=== PATIENT | male | born 1955 | race Caucasian/White ===

== ENCOUNTER 2016-06-21 15:47 | Emergency (ER) | payer OTHER ==
[~2016-06-21] VITALS: Ht 175.3 cm; Wt 128.0 kg
[~2016-06-21 15:47] MED LIST: CIPR1TAB10 PO; ENOX1INJ13 SQ; ERGO1CAP35 PO; FERR1TAB23 PO; IPRA1AER2 INH; LPR25 PO; LSN40 PO; LSX80 PO; NVLGIPEN SC; NYSP EXT; OMEP40CA41 PO; OXYC-643 PO; SIMV-151 PO
[2016-06-21 15:53] VITALS: TEMP 36.7; Ht 175.3 cm; Wt 128.0 kg
[2016-06-21] MEDS ORDERED: SODIUM CHLORIDE 0.9% 500ML 500 ML IV STA (16:02)
[2016-06-21] MEDS ORDERED: SODIUM CHLORIDE 0.9% 1000ML 1,000 ML IV STA (16:02)
[2016-06-21] MEDS ORDERED: LIDOCAINE HCL 2% JELLY 30 ML TUBE EXT ONE (16:20)
--- NOTE | 2016-06-21 16:33 | EMERGENCY ROOM VISIT NOTE ---
History Report prepared by Tyra: Radha Roberson Under the Supervision of: Dr. Jory Ceja M.D. First contact with patient: 16:01 Chief Complaint: URINARY SYMPTOMS Stated Complaint: CATH CHANGED,UTI SYMPTOMS History of Present Illness The patient is a 61 year old male who presents to the Emergency Room with complaints of persistent urinary symptoms since yesterday. He also complains of a fever. The patient states that he thinks he has a UTI. He has a chronic urinary catheter due to incontinence and it has been clogged since yesterday. He states that his PCP is under the impression that he may have a pinched nerve secondary to spinal stenosis, which could be causing his incontinence. Currently , the patient does not feel like he has much, if any, urine in his bladder. Source of History: patient Onset: yesterday Position: other () Quality: other (possible UTI) Timing: other (persistent) Associated Symptoms: + fevers Review of Systems See HPI for pertinent positives & negatives. A total of 10 systems reviewed and were otherwise negative. Past Medical & Surgical Medical Problems: (1) Diabetes mellitus (2) Dyspnea (3) Gastroesophageal reflux disease (4) Gout (5) Parkinson's disease (6) Pulmonary embolism (7) Syncope (8) Weakness Family History Cancer Diabetes mellitus FH: heart disease Hypertension Social History Smoking Status: Never Smoker Alcohol Use: none Drug Use: none Marital Status: single Housing Status: lives alone Occupation Status: retired Current/Historical Medications Scheduled Allopurinol (Allopurinol), 100 MG PO DAILY Amantadine HCl (Amantadine HCl), 100 MG PO BID Ascorbic Acid (Vitamin C), 3 TABS QAM Carbidopa/Levodopa (Sinemet Cr 50MG/200MG), 1 TAB PO BID Ciprofloxacin Hcl (Cipro), 500 MG PO PRN UD Ciprofloxacin Hcl (Cipro), 500 MG PO BID Enoxaparin Sodium (Lovenox), 120 MG SQ Q12 Ferrous Sulfate (Iron), 1 TAB PO DAILY Furosemide (Furosemide), 80 MG PO BID Insulin Aspart (Novolog Flexpen), 10 UNITS SC AC Insulin Glargine (Lantus), 45 UNITS SC BID Lisinopril (Lisinopril), 40 MG PO BID Metoprolol Tartrate (Lopressor), 25 MG PO BID Nystatin (Nystop), 1 APPLN EXT TID Omeprazole (Prilosec), 40 MG PO DAILY Oxycodone/Acetaminophen 5MG/325MG (Oxycodone/Acetaminophen 5MG/325MG), 1-2 TABS PO Q4 Pregabalin (Lyrica), 300 MG PO BID Simvastatin (Simvastatin), 20 MG PO DAILY Scheduled PRN Ipratropium-Albuterol (Combivent Respimat), 1 PUFFS INH QID PRN for cough, wheeze, sob Allergies Coded Allergies: Penicillins (Verified Allergy, Severe, 06/21/16) SEVERE RXN PER PT Cephalosporins (Verified Allergy, Unknown, 06/21/16) Sulfamethoxazole w/Trimethoprim (Verified Allergy, Unknown, ., 06/21/16) TAKES LASIX AT HOME Physical Exam Vital Signs Date Time Temp Pulse Resp B/P Pulse Ox O2 Delivery O2 Flow Rate FiO2 06/21/16 19:45 94 20 187/98 95 Room Air 06/21/16 18:54 100 20 169/109 97 Room Air 06/21/16 18:04 107 18 180/104 96 Room Air 06/21/16 17:27 105 18 178/103 96 Room Air 06/21/16 16:59 110 20 202/116 95 06/21/16 16:31 114 06/21/16 15:53 36.7 124 16 171/106 97 Physical Exam Vital signs reviewed. General: Malodorous, obese, 61 year old male, in no significant distress. Noted to be tachycardic and hypertensive. HEENT: No scleral icterus, PERRLA, neck supple. Atraumatic. Cardiovascular: Regular rate and rhythm, no extra sounds. Pulmonary: Clear to auscultation bilaterally, normal work of breathing. Abdomen: Soft, nontender, nondistended, positive bowel sounds. : Excoriated and erythematous genitals with a circumcised penis. Musculoskeletal: Atraumatic, no peripheral edema. Neurologic: Patient awake alert and oriented x 3 Skin: Warm, dry, no rash Medical Decision & Procedures Laboratory Results 06/21/16 16:35 Red Blood Count 5.04, Mean Corpuscular Volume 86.3, Mean Corpuscular Hemoglobin 28.6, Mean Corpuscular Hemoglobin Concent 33.1, Mean Platelet Volume 9.2, Neutrophils (%) (Auto) 71.5, Lymphocytes (%) (Auto) 20.6, Monocytes (%) (Auto) 5.4, Eosinophils (%) (Auto) 2.1, Basophils (%) (Auto) 0.2, Neutrophils # (Auto) 6.72, Lymphocytes # (Auto) 1.94, Monocytes # (Auto) 0.51, Eosinophils # (Auto) 0.20, Basophils # (Auto) 0.02 06/21/16 16:35 Test 06/21/16 16:35 06/21/16 16:45 06/21/16 16:49 White Blood Count 9.41 K/uL (4.8-10.8) Red Blood Count 5.04 M/uL (4.7-6.1) Hemoglobin 14.4 g/dL (14.0-18.0) Hematocrit 43.5 % (42-52) Mean Corpuscular Volume 86.3 fL (80-100) Mean Corpuscular Hemoglobin 28.6 pg (25-34) Mean Corpuscular Hemoglobin Concent 33.1 g/dl (32-36) Platelet Count 179 K/uL (130-400) Mean Platelet Volume 9.2 fL (7.4-10.4) Neutrophils (%) (Auto) 71.5 % Lymphocytes (%) (Auto) 20.6 % Monocytes (%) (Auto) 5.4 % Eosinophils (%) (Auto) 2.1 % Basophils (%) (Auto) 0.2 % Neutrophils # (Auto) 6.72 K/uL (1.4-6.5) Lymphocytes # (Auto) 1.94 K/uL (1.2-3.4) Monocytes # (Auto) 0.51 K/uL (0.11-0.59) Eosinophils # (Auto) 0.20 K/uL (0-0.5) Basophils # (Auto) 0.02 K/uL (0-0.2) RDW Standard Deviation 42.5 fL (36.4-46.3) RDW Coefficient of Variation 13.4 % (11.5-14.5) Immature Granulocyte % (Auto) 0.2 % Immature Granulocyte # (Auto) 0.02 K/uL (0.00-0.02) Anion Gap 9.0 mmol/L (3-11) Est Creatinine Clear Calc Drug Dose 84.5 ml/min Estimated GFR () 74.7 Estimated GFR (Non- 64.4 BUN/Creatinine Ratio 16.4 (10-20) Calcium Level 9.5 mg/dl (8.5-10.1) Magnesium Level 2.3 mg/dl (1.8-2.4) Total Bilirubin 0.4 mg/dl (0.2-1) Direct Bilirubin 0.1 mg/dl (0-0.2) Aspartate Amino Transf (AST/SGOT) 10 U/L (15-37) Alanine Aminotransferase (ALT/SGPT) 29 U/L (12-78) Alkaline Phosphatase 121 U/L (45-117) Total Protein 8.0 gm/dl (6.4-8.2) Albumin 3.7 gm/dl (3.4-5.0) Lipase 132 U/L (73-393) Urine Color DK YELLOW Urine Appearance TURBID (CLEAR) Urine pH 8.0 (4.5-7.5) Urine Specific [place] 1.020 (1.000-1.030) Urine Protein 2+ (NEG) Urine Glucose (UA) TRACE (NEG) Urine Ketones NEG (NEG) Urine Occult Blood 3+ (NEG) Urine Nitrite POS (NEG) Urine Bilirubin NEG (NEG) Urine Urobilinogen NEG (NEG) Urine Leukocyte Esterase LARGE (NEG) Urine WBC (Auto) >30 /hpf (0-5) Urine RBC (Auto) >30 /hpf (0-4) Urine Hyaline Casts (Auto) 5-10 /lpf (0-5) Urine Epithelial Cells (Auto) >30 /lpf (0-5) Urine Bacteria (Auto) 4+ (NEG) Urine Pathogenic Casts /lpf (0) Bedside Lactic Acid Venous 1.26 mmol/L (0.90-1.70) Laboratory results per my review. Medications Administered Medications (Trade) Dose Ordered Sig/Apryl Route Start Time Stop Time Status Last Admin Dose Admin Sodium Chloride 500 ml @ 999 mls/hr Q31M STAT IV 06/21/16 16:02 06/21/16 16:32 DC 06/21/16 16:02 999 MLS/HR Sodium Chloride (Nss 1000ml) 1,000 ml @ 125 mls/hr Q8H STAT IV 06/21/16 16:02 06/21/16 21:27 DC 06/21/16 16:02 125 MLS/HR Lidocaine HCl (Xylocaine Jelly 2%) 30 ml STK-MED ONCE EXT 06/21/16 16:20 06/21/16 16:22 DC 06/21/16 16:20 30 ML Morphine Sulfate (MoRPHine SULFATE INJ) 6 mg NOW STAT IV 06/21/16 16:58 06/21/16 17:00 DC 06/21/16 17:06 6 MG Ondansetron HCl (Zofran Inj) 4 mg NOW STAT IV 06/21/16 16:58 06/21/16 17:00 DC 06/21/16 17:06 4 MG Ciprofloxacin (Cipro Tab) 500 mg NOW STAT PO 06/21/16 17:24 06/21/16 17:25 DC 06/21/16 18:01 500 MG Metoprolol Tartrate (Lopressor Tab) 50 mg NOW STAT PO 06/21/16 17:43 06/21/16 17:45 DC 06/21/16 18:01 50 MG Nystatin (Mycostatin Powder) 1 appln NOW STAT EXT 06/21/16 19:02 06/21/16 19:03 DC 06/21/16 19:02 1 APPLN ED Course 1602: Ordered NSS 1000 ml @ 125 mls/hr IV, NSS 500 ml @ 999 mls/hr IV. 1621: Past medical records reviewed. The patient was evaluated in room B9. A complete history and physical examination was performed. 1658: Ordered Zofran Inj 4 mg IV, Morphine Sulfate 6 mg IV 1724: Ordered Cipro Tab 500 mg PO. 1740: I reassessed the patient. He was feeling better. Ordered Metoprolol Tartrate 50 mg PO. 190: Ordered Nystatin 1 appln EXT. 1935: Upon reevaluation, the patient appeared to have improvement of his symptoms. I discussed findings with the patient. He verbalized agreement of the treatment plan. The patient was discharged home. Medical Decision Differential diagnosis: UTI, bladder mass, Wills catheter dysfunction, hematuria. This patient was evaluated and appeared to be in no significant distress. IV access was obtained and laboratory work was drawn. He was placed on the tunnel worker and found to be in a sinus tachycardia. He is noted to be hypertensive. Patient was hydrated with normal saline solution, laboratory work reveals no significant abnormalities. Patient's urinalysis is greatly concerning for infection. The Wills catheter was changed and the bladder was irrigated. The patient tolerated this procedure well. He was given Cipro 500 mg orally and placed on seven-day course of Cipro. Urine cultures are pending. Patient was given metoprolol 50 mg orally as he does take metoprolol twice daily. Patient's vital signs have normalized. He was advised to follow-up with his primary care physician this week and return to the ER for worsening of symptoms or any medical concerns. Impression Primary Impression: Urinary tract infection Additional Impression: Complication, blocked Wills catheter Scribe Attestation The scribe's documentation has been prepared under my direction and personally reviewed by me in its entirety. I confirm that the note above accurately reflects all work, treatment, procedures, and medical decision making performed by me. Departure Information Dispostion Home / Self-Care Prescriptions Ciprofloxacin Hcl (CIPRO) 500 Mg Tab 500 MG PO BID, #14 TAB Prov: Jory Ceja M.D. 06/21/16 Referrals Reza Ocasio Jr,D.O. (PCP) Patient Instructions A Signature Page, My [facility] Additional Instructions Diagnosis: Complication of Wills catheter, UTI Cipro 500 mg twice daily for 7 days. Your Wills catheter was changed today. Drink plenty of clear fluids to keep the catheter irrigated. Continue your blood pressure medications as prescribed. Follow-up with your primary care provider this week for reevaluation, blood pressure recheck and evaluation of the Wills catheter. Return to the ER for worsening of symptoms or any medical concerns.
[2016-06-21 16:45] LABS: BASO % 0.2 %; BASO ABS # 0.02 K/uL (0-0.2); COMPLETE YES; EOS % 2.1 %; HEMATOCRIT 43.5 % (42-52); IG% 0.2 %; LYMPH % 20.6 %; LYMPH ABS # 1.94 K/uL (1.2-3.4); MEAN CELL VOLUME 86.3 fL (80-100); MEAN CORPUSCULAR HEMOGLOBIN 28.6 pg (25-34); MEAN CORPUSCULAR HGB CONC 33.1 g/dl (32-36); MEAN PLATELET VOLUME 9.2 fL (7.4-10.4); MONO % 5.4 %; NEUT % 71.5 %; PLATELET COUNT 179 K/uL (130-400); RED BLOOD COUNT 5.04 M/uL (4.7-6.1); WHITE BLOOD COUNT 9.41 K/uL (4.8-10.8)
[2016-06-21] MEDS ORDERED: ONDANSETRON INJ 2 MG/ML 2 ML VIAL IV STA (16:58)
[2016-06-21] MEDS ORDERED: MoRPHine SULFATE 10 MG/ML CARP/VIAL IV STA (16:58)
[2016-06-21 17:05] LABS: BUN/CREATININE RATIO 16.4 (10-20); CALCIUM 9.5 mg/dl (8.5-10.1); CREATININE 1.2 mg/dl (0.60-1.40); MAGNESIUM 2.3 mg/dl (1.8-2.4); POTASSIUM 4.4 mmol/L (3.5-5.1)
[2016-06-21] MEDS ORDERED: CIPROFLOXACIN 500 MG TAB PO STA (17:24)
[2016-06-21 17:27] LABS: URINE APPEARANCE TURBID (CLEAR); URINE BILIRUBIN NEG (NEG); URINE COLOR DK YELLOW; URINE EPITHELIAL CELL AUTO >30 /lpf (0-5); URINE NITRITE POS (NEG); UROBILINOGEN NEG (NEG); ZZURINE CULT IF INDIC CATH YES
[2016-06-21 17:31] LABS: MANUAL MICROSCOPIC REQUIRED? NO; REVIEW REQ? YES
[2016-06-21 17:37] LABS: SULFASALICYLIC ACID POS (NEG)
[2016-06-21] MEDS ORDERED: METOPROLOL TARTRATE 50 MG TAB PO STA (17:43)
[2016-06-21] MEDS ORDERED: NYSTATIN POWDER 15GM BTL EXT STA (19:02)
[2016-06-21] MEDS ORDERED: CIPR-255 PO (19:20)
[2016-06-21 19:45] VITALS: BP 187/98; PULSE 94; O2SAT 95
--- NOTE | 2016-06-23 14:52 | Pharmacy Progress Note ---
ED Pharmacist Culture FollowUp Date of Service: Jun 23, 2016. Patient's urine cx from 06/21/16 finalized today. The urine cx is growing providencia rettgeri resistant to ciprofloxacin. He had been dx with complicated catheter associated UTI during ED visit and was discharged on ciprofloxacin x 7 days. Allergy hx includes penicillins ("severe rxn" per pt report), cephs (rxn unknown), smx-tmp (rxn unknown). If all 3 allergies are significant our treatment choices are limited to parenteral therapy ( aminoglycoside or ertapenem). I did review past admissions to determine if he has tolerated cephs or Bactrim...unfortunately he has not received these abx classes on prior admissions. I then attempted to contact the patient at home to obtain more info about his allergies. I left a message on his voice mail ) asking that he call me back.
[2016-08-12] MEDS ORDERED: ERTA1INJ IV (10:39)
[2016-08-15] MEDS ORDERED: LVNIS150 SQ (14:24)
[2016-08-15] MEDS ORDERED: OXYC-643 PO (16:24)
[2016-10-06] MEDS ORDERED: DXY100 PO (13:15)
[2016-11-14] MEDS ORDERED: ASPEC81 PO (10:42)
[2016-11-14] MEDS ORDERED: IMDSR30 PO (10:42)
[2016-11-14] MEDS ORDERED: LVNIS150 SQ (10:42)
[2016-11-14] MEDS ORDERED: LPR25 PO (10:42)
[2016-11-14] MEDS ORDERED: CARV3.122 PO (11:15)
[2016-11-14] MEDS ORDERED: NITR-5 PO (11:15)
[2017-01-02] MEDS ORDERED: FURO40TA3 PO (11:45)
[2017-01-02] MEDS ORDERED: INSDGI SC (19:52)
[2017-01-23] MEDS ORDERED: SYM100 PO (12:38)
[2017-01-23] MEDS ORDERED: ALL100 PO (12:38)
[2017-01-23] MEDS ORDERED: PREG300C PO (12:38)
[2017-01-23] MEDS ORDERED: CARB50TA3 PO (12:44)
[2017-01-23] MEDS ORDERED: SIMV20TA2 PO (17:27)
[2017-03-12] MEDS ORDERED: LVNIS150 SC (10:50)
[2017-03-12] MEDS ORDERED: PRT40 PO (10:50)
[2017-03-12] MEDS ORDERED: FURO80TA63 PO (10:50)
[2017-03-12] MEDS ORDERED: VERA1TAB52 PO (10:50)
[2017-03-12] MEDS ORDERED: INSDGI SC (10:50)
[2017-03-12] MEDS ORDERED: ZNT150 PO (10:50)
[2017-03-12] MEDS ORDERED: SPIR25TA PO (10:50)
== END 2016-06-21 19:48 | disposition home or self-care (01) ==
LOC: C.EDB 15:49
DX: T83.193A Other mechanical complication of other urinary stent, initial encounter (principal); X58.XXXA Exposure to other specified factors, initial encounter; N39.0 Urinary tract infection, site not specified; R00.0 Tachycardia, unspecified; E11.9 Type 2 diabetes mellitus without complications; K21.9 Gastro-esophageal reflux disease without esophagitis; G20 Parkinson's disease; M10.9 Gout, unspecified; Z86.711 Personal history of pulmonary embolism; Z79.4 Long term (current) use of insulin; Z79.899 Other long term (current) drug therapy; Z88.0 Allergy status to penicillin; Z88.2 Allergy status to sulfonamides; Z88.8 Allergy status to other drugs, medicaments and biological substances

== ENCOUNTER → 2016-07-03 | Outpatient (CLI) | payer OTHER ==
[~2016-07-03] MED LIST changes: +ALL100 PO; +AMLO-114 PO; +ASCO500T3 PO; +ASPEC81 PO; +CARB50TA3 PO; +CARV3.12 PO; +CARV3.122 PO; +CIPR-255 PO; +CLC6 PO; +COLC0.6T54 PO; +CRG3125 PO; +DOCU-94 PO; +DTRSR/2 PO; +DUTA0.5C PO; +DUTA1CAP25 PO; +DXY100 PO; +ENOX1INJ14 SC; -ERGO1CAP35 PO; +ERTA1INJ IV; +FLM4 PO; +FLUO40CA8 PO; +FURO40TA3 PO; +FURO80TA63 PO; +IMDSR30 PO; +INSDGI SC; +ISOS-11 PO; +LEVO1TAB35 PO; +LOSA50TA6 PO; +LVNIS120 SC; +LVNIS150 SC; +LVNIS150 SQ; +METO25TA56 PO; +MIRA1TAB3 PO; +NITR-5 PO; +NVLGI/PEN SQ; +OXYC-57 PO; +PREG1CAP34 PO; +PREG300C PO; +PRLSR20 PO; +PRT40 PO; +SENN1TAB77 PO; +SIMV20TA2 PO; +SINCALIDE IV SCH; +SODIUM CHLORIDE 0.9% IV SCH; +SPIR25TA PO; +SPIR25TA89 PO; +SYM100 PO; +TAMS0.4C38 PO; +VERA1TAB52 PO; +ZNT150 PO; +ZOLP10TA PO; +ZOLP10TA6 PO
--- NOTE | 2016-07-03 15:25 | DIAGNOSTIC IMAGING REPORT ---
NUCLEAR MEDICINE HEPATOBILIARY SCAN WITH EJECTION FRACTION ANALYSIS CLINICAL HISTORY: Right-sided abdominal pain COMPARISON STUDY: CT scan dated 05/14/2016 FINDINGS: The patient was injected with 4 x 1 mCi of technetium 99m Choletec. Sequential anterior imaging was performed. The gallbladder was first visualized at 10 minute image. There is normal passage of activity into small bowel. At 1 hour, the patient was administered 2.45 mcg of sincalide utilizing a 30 minute intravenous infusion. The gallbladder ejection fraction was normal measuring 79%. IMPRESSION: Normal study. No evidence of cystic duct obstruction. Normal gallbladder ejection fraction of 79% Electronically signed by: Abe Tejeda M.D. 07/03/2016 3:24 PM Dictated Date/Time: 07/03/2016 3:22 PM
== END | disposition home or self-care (01) ==
LOC: C.NUCL 12:48
DX: R10.9 Unspecified abdominal pain (principal)

== ENCOUNTER 2016-08-07 19:55 | Inpatient (IN) | payer OTHER ==
[~2016-08-07] VITALS: Ht 177.8 cm; Wt 122.2 kg
[~2016-08-07 19:55] MED LIST changes: -ALL100 PO; -AMLO-114 PO; -ASCO500T3 PO; -ASPEC81 PO; -CARB50TA3 PO; -CARV3.12 PO; -CARV3.122 PO; -CLC6 PO; -COLC0.6T54 PO; -CRG3125 PO; -DOCU-94 PO; -DTRSR/2 PO; -DUTA0.5C PO; -DUTA1CAP25 PO; -DXY100 PO; -ENOX1INJ14 SC; -ERTA1INJ IV; -FLM4 PO; -FLUO40CA8 PO; -FURO40TA3 PO; -FURO80TA63 PO; -IMDSR30 PO; -INSDGI SC; -ISOS-11 PO; -LEVO1TAB35 PO; -LOSA50TA6 PO; -LVNIS120 SC; -LVNIS150 SC; -LVNIS150 SQ; -METO25TA56 PO; -MIRA1TAB3 PO; -NITR-5 PO; -NVLGI/PEN SQ; -OXYC-57 PO; -PREG1CAP34 PO; -PREG300C PO; -PRLSR20 PO; -PRT40 PO; -SENN1TAB77 PO; -SIMV20TA2 PO; -SINCALIDE IV SCH; -SODIUM CHLORIDE 0.9% IV SCH; -SPIR25TA PO; -SPIR25TA89 PO; -SYM100 PO; -TAMS0.4C38 PO; -VERA1TAB52 PO; -ZNT150 PO; -ZOLP10TA PO; -ZOLP10TA6 PO
[2016-08-07] MEDS ORDERED: SODIUM CHLORIDE 0.9% 1000ML 1,000 ML IV STA (21:50)
[2016-08-07] MEDS ORDERED: ONDANSETRON INJ 2 MG/ML 2 ML VIAL IV STA (21:50)
[2016-08-07] MEDS ORDERED: SODIUM CHLORIDE 0.9% 1000ML 250 ML IV STA (21:50)
--- NOTE | 2016-08-07 21:58 | EMERGENCY ROOM VISIT NOTE ---
History Report prepared by Tyra: Danny Hernández Under the Supervision of: Dr. Rodrigo Recio M.D. First contact with patient: 21:49 Chief Complaint: ABDOMINAL PAIN Stated Complaint: PAIN IN LWR ABD Nursing Triage Summary: Pt reports abd pain, lower. "sometimes it's so severe it brings tears to my eyes". Associated nausea. denies v/d. pt has catheter in. Hx of UTIs. History of Present Illness The patient is a 61 year old male who presents to the Emergency Room with complaints of waxing and waning bilateral lower abdominal pain beginning about 1 month ago. He rates the pain a 10/10 in severity when the pain is present, and notes there is nothing that initiates the pain. He reports he occasionally feels nauseous, but denies any vomiting or diarrhea. His urologist, Dr. Case, notes he may have an oversized prostate. The patient has had a catheter in place for over 1 year, and the current catheter has been in place for about 2 weeks. He has not had any complications with using his catheter, though he notes he has had a few UTIs recently. He notes his last bowel movement was this morning and was normal. The patient has diabetes and reports his sugars have been around 120 to 130. He reports having a past appendectomy, and a hernia repair in the past. He notes that he receives blood thinner injections. The patient is not currently on antibiotics. Source of History: patient Onset: about 1 month ago Position: abdomen (bilateral lower) Symptom Intensity: 10/10 in severity Quality: other (abdominal pain) Timing: waxes/wanes Associated Symptoms: + nausea, No diarrhea, No vomiting Review of Systems See HPI for pertinent positives & negatives. A total of 10 systems reviewed and were otherwise negative. Past Medical & Surgical Medical Problems: (1) Catheter-associated urinary tract infection (2) Diabetes mellitus (3) Dyspnea (4) Gastroesophageal reflux disease (5) Gout (6) Parkinson's disease (7) Pulmonary embolism (8) Syncope (9) Weakness Family History Cancer Diabetes mellitus FH: heart disease Hypertension Social History Smoking Status: Never Smoker Alcohol Use: none Drug Use: none Marital Status: single Housing Status: lives alone Occupation Status: retired Current/Historical Medications Scheduled Allopurinol (Allopurinol), 100 MG PO DAILY Amantadine HCl (Amantadine HCl), 100 MG PO BID Ascorbic Acid (Vitamin C), 1 TABS PO QAM Carbidopa/Levodopa (Sinemet Cr 50MG/200MG), 1 TAB PO BID Enoxaparin (Lovenox), 150 MG SQ BID Ferrous Sulfate (Iron), 1 TAB PO DAILY Furosemide (Furosemide), 80 MG PO BID Insulin Aspart (Novolog Flexpen), 10 UNITS SC AC Insulin Glargine (Lantus), 45 UNITS SC BID Lisinopril (Lisinopril), 40 MG PO BID Metoprolol Tartrate (Lopressor), 25 MG PO BID Nystatin (Nystop), 1 APPLN EXT TID Omeprazole (Prilosec), 40 MG PO DAILY Oxycodone/Acetaminophen 5MG/325MG (Oxycodone/Acetaminophen 5MG/325MG), 1-2 TABS PO Q4 Pregabalin (Lyrica), 300 MG PO BID Simvastatin (Simvastatin), 20 MG PO DAILY Allergies Coded Allergies: Penicillins (Verified Allergy, Severe, 06/21/16) SEVERE RXN PER PT Cephalosporins (Verified Allergy, Unknown, 06/21/16) Sulfamethoxazole w/Trimethoprim (Verified Allergy, Unknown, ., 06/21/16) TAKES LASIX AT HOME Physical Exam Vital Signs Date Time Temp Pulse Resp B/P Pulse Ox O2 Delivery O2 Flow Rate FiO2 08/08/16 01:22 93 18 179/96 98 Room Air 08/07/16 23:22 99 18 163/105 97 Room Air 08/07/16 22:03 101 18 170/108 98 Room Air 08/07/16 20:06 37.2 128 18 191/145 96 Room Air Physical Exam GENERAL: Patient is in no acute distress. HEENT: No acute trauma, normocephalic atraumatic, mucous membranes moist, no nasal congestion, no scleral icterus. NECK: No stridor, no adenopathy, no meningismus, trachea is midline. LUNGS: Clear to auscultation bilaterally, no wheeze, no rhonchi, breath sounds equal. HEART: Tachycardic with regular rhythm, no murmurs. ABDOMEN: Soft; tenderness in lower abdomen bilaterally; bowel sounds positive, no hernias, no peritonitis. Wills catheter in place draining yellow urine. EXTREMITIES: Mild bilateral pedal edema without cellulitis; full range of motion of all the joints without pain or difficulty, no signs for acute trauma. NEUROLOGIC: Oriented x 3, no acute motor or sensory deficits, no focal weakness. SKIN: No rash, no jaundice, no diaphoresis. Medical Decision & Procedures ER Provider Diagnostic Interpretation: Radiology results are stated below per my review and radiologist interpretation: CT ABDOMEN & PELVIS: Colonic tics. No acute diverticulitis. No bowel obstruction or inflammatory changes. Wills catheter in the urinary bladder. Thickening and stranding around the urinary bladder may be worrisome for cystitis. Mild bilateral perinephric stranding may be senescent, correlate for infection. Small low-density lesion left kidney. Small nonobstructive left renal cyst. Scarring left inferior pole. No renal obstruction. Liver, gallbladder, pancreas, spleen unremarkable. Stent within the IVC and bilateral common iliac and left external iliac veins. Varicosities anterior abdominal wall subcutaneous soft tissue. Varices in the retroperitoneum. Left lung base atelectasis. Radiologist: Jeanna Kingston Laboratory Results 08/07/16 23:30 Red Blood Count 4.91, Mean Corpuscular Volume 84.5, Mean Corpuscular Hemoglobin 28.1, Mean Corpuscular Hemoglobin Concent 33.3, Mean Platelet Volume 9.2, Neutrophils (%) (Auto) 68.9, Lymphocytes (%) (Auto) 21.8, Monocytes (%) (Auto) 5.6, Eosinophils (%) (Auto) 3.1, Basophils (%) (Auto) 0.3, Neutrophils # (Auto) 5.37, Lymphocytes # (Auto) 1.70, Monocytes # (Auto) 0.44, Eosinophils # (Auto) 0.24, Basophils # (Auto) 0.02 08/07/16 23:30 Test 08/07/16 22:34 08/07/16 23:30 Urine Color JON Urine Appearance TURBID (CLEAR) Urine pH >= 9.0 (4.5-7.5) Urine Specific [place] <= 1.005 (1.000-1.030) Urine Protein 2+ (NEG) Urine Glucose (UA) TRACE (NEG) Urine Ketones TRACE (NEG) Urine Occult Blood TRACE (NEG) Urine Nitrite POS (NEG) Urine Bilirubin NEG (NEG) Urine Urobilinogen NEG (NEG) Urine Leukocyte Esterase LARGE (NEG) Urine RBC 0-4 /hpf (0-4) Urine WBC >30 /hpf (0-5) Urine Epithelial Cells 20-30 /lpf (0-5) Urine Triple Phosphate Crystals PRESENT (NONE PRSENT) Urine Bacteria 4+ (NEG) Urine Mucus PRESENT (NONE PRSENT) White Blood Count 7.79 K/uL (4.8-10.8) Red Blood Count 4.91 M/uL (4.7-6.1) Hemoglobin 13.8 g/dL (14.0-18.0) Hematocrit 41.5 % (42-52) Mean Corpuscular Volume 84.5 fL (80-100) Mean Corpuscular Hemoglobin 28.1 pg (25-34) Mean Corpuscular Hemoglobin Concent 33.3 g/dl (32-36) Platelet Count 190 K/uL (130-400) Mean Platelet Volume 9.2 fL (7.4-10.4) Neutrophils (%) (Auto) 68.9 % Lymphocytes (%) (Auto) 21.8 % Monocytes (%) (Auto) 5.6 % Eosinophils (%) (Auto) 3.1 % Basophils (%) (Auto) 0.3 % Neutrophils # (Auto) 5.37 K/uL (1.4-6.5) Lymphocytes # (Auto) 1.70 K/uL (1.2-3.4) Monocytes # (Auto) 0.44 K/uL (0.11-0.59) Eosinophils # (Auto) 0.24 K/uL (0-0.5) Basophils # (Auto) 0.02 K/uL (0-0.2) RDW Standard Deviation 39.8 fL (36.4-46.3) RDW Coefficient of Variation 13.0 % (11.5-14.5) Immature Granulocyte % (Auto) 0.3 % Immature Granulocyte # (Auto) 0.02 K/uL (0.00-0.02) Prothrombin Time 10.7 SECONDS (9.0-12.0) Prothromb Time International Ratio 1.0 (0.9-1.1) Activated Partial Thromboplast Time 30.1 SECONDS (21.0-31.0) Partial Thromboplastin Ratio 1.2 Anion Gap 8.0 mmol/L (3-11) Est Creatinine Clear Calc Drug Dose 85.3 ml/min Estimated GFR () 74.7 Estimated GFR (Non- 64.4 BUN/Creatinine Ratio 13.0 (10-20) Lactic Acid Level 1.0 mmol/L (0.4-2.0) Calcium Level 9.1 mg/dl (8.5-10.1) Total Bilirubin 0.3 mg/dl (0.2-1) Aspartate Amino Transf (AST/SGOT) 13 U/L (15-37) Alanine Aminotransferase (ALT/SGPT) 22 U/L (12-78) Alkaline Phosphatase 129 U/L (45-117) Total Protein 7.8 gm/dl (6.4-8.2) Albumin 3.3 gm/dl (3.4-5.0) Globulin 4.5 gm/dl (2.5-4.0) Albumin/Globulin Ratio 0.7 (0.9-2) Lipase 178 U/L (73-393) Laboratory results reviewed by me. Medications Administered Medications (Trade) Dose Ordered Sig/Apryl Route Start Time Stop Time Status Last Admin Dose Admin Sodium Chloride (Nss 1000ml) 250 ml @ 999 mls/hr Q16M STAT IV 08/07/16 21:50 08/07/16 22:05 DC 08/07/16 22:29 999 MLS/HR Ondansetron HCl 4 mg 4 mg NOW STAT IV 08/07/16 21:50 08/07/16 21:54 DC 08/07/16 22:29 4 MG Sodium Chloride (Nss 1000ml) 1,000 ml @ 200 mls/hr Q5H STAT IV 08/07/16 21:50 08/08/16 02:49 08/07/16 23:20 200 MLS/HR Morphine Sulfate (MoRPHine SULFATE INJ) 4 mg Q30M PRN IV 08/07/16 22:00 08/21/16 21:59 08/08/16 02:02 4 MG ECG Indication: abdominal pain Rate (beats per minute): 104 Rhythm: sinus tachycardia Findings: 1st degree AV block, no acute ischemic change, no ectopy ED Course 2148: The patient was evaluated in room C1B. A complete history and physical exam was performed. 2149: Ordered NSS 1,000 ml @ 200 mls/hr IV, Zofran Inj 4 mg IV, and NSS 250 ml @ 999 mls/hr IV. 0: Ordered Morphine Sulfate 4 mg IV. 0110: I updated the patient. 0115: Ordered Ertapenem 1 gm IV. 0145: Discussed the patient's case with Dr. Bowers. The patient will be evaluated for further management. Medical Decision Differentials include diverticulitis, abscess, bowel obstruction, UTI, urinary retention, hernia, bowel ischemia, and cellulitis. There is no leukocytosis or concerning anemia. No significant electrolyte abnormality, kidney failure or hepatitis. There is no pancreatitis. Urinalysis does show evidence for infection, urine culture is pending. Lactic acid level is not elevated making bowel ischemia less likely. There is no coagulopathy. Abdominal and pelvis CT show cystitis with possible inflammation to the ureters and kidneys. No abscess, no acute surgical process by CT scan. Patient received IV saline, IV morphine, IV Zofran. He received IV ertapenem as antibiotic coverage. The patient has multiple drug allergies, he has in the very recent past required IV antibiotic therapy to treat his urinary infection. I think that given the circumstances, admission/observation would be warranted. The patient requires IV antibiotic therapy for this infection. He requires further pain control. I spoke to the patient and case management. The on-call hospitalist was consulted. Consults Time Called: 129 Consulting Physician: Dr. Bowers - [facility] Returned Call: 144 Discussed the patient's case with Dr. Bowers. The patient will be evaluated for further management. Impression Primary Impression: Urinary tract infection Additional Impressions: Lower abdominal pain Pyelonephritis Scribe Attestation The scribe's documentation has been prepared under my direction and personally reviewed by me in its entirety. I confirm that the note above accurately reflects all work, treatment, procedures, and medical decision making performed by me. Departure Information Dispostion Being Evaluated By Hospitalist Referrals Reza Ocasio Jr,D.O. (PCP) Patient Instructions My [facility] Problem Qualifiers
[2016-08-07] MEDS ORDERED: OPTIRAY 320 IV PRN (22:00)
[2016-08-07] MEDS: MoRPHine SULFATE 4 MG/ML 1 ML CARP\\VIAL IV PRN ×2 (22:31→23:21)
[2016-08-07] MEDS ORDERED: LVNIS150 SQ (22:32)
[2016-08-07 23:01] LABS: MANUAL MICROSCOPIC REQUIRED? YES; URINE APPEARANCE TURBID (CLEAR); URINE BILIRUBIN NEG (NEG); URINE COLOR AMBER; URINE NITRITE POS (NEG); URINE PH >= 9.0 (4.5-7.5); URINE SPECIFIC GRAVITY <= 1.005 (1.000-1.030); UROBILINOGEN NEG (NEG)
[2016-08-07 23:07] LABS: REVIEW REQ? NO
[2016-08-07 23:09] LABS: SULFASALICYLIC ACID POS (NEG)
[2016-08-07 23:37] LABS: BASO % 0.3 %; BASO ABS # 0.02 K/uL (0-0.2); COMPLETE YES; EOS % 3.1 %; HEMATOCRIT 41.5 % (42-52); IG% 0.3 %; LYMPH % 21.8 %; MEAN CELL VOLUME 84.5 fL (80-100); MEAN CORPUSCULAR HEMOGLOBIN 28.1 pg (25-34); MEAN CORPUSCULAR HGB CONC 33.3 g/dl (32-36); MEAN PLATELET VOLUME 9.2 fL (7.4-10.4); MONO % 5.6 %; NEUT % 68.9 %; PLATELET COUNT 190 K/uL (130-400); RED BLOOD COUNT 4.91 M/uL (4.7-6.1); WHITE BLOOD COUNT 7.79 K/uL (4.8-10.8)
[2016-08-07 23:59] LABS: CALCIUM 9.1 mg/dl (8.5-10.1); CREATININE 1.2 mg/dl (0.60-1.40); POTASSIUM 4.6 mmol/L (3.5-5.1)
[2016-08-08 00:02] LABS: ALB/GLOB RATIO 0.7 (0.9-2)
[2016-08-08 00:06] LABS: PARTIAL THROMBOPLASTIN RATIO 1.2; PROTHROMBIN TIME (PATIENT) 10.7 SECONDS (9.0-12.0)
[2016-08-08 00:22] LABS: URINE RBC 0-4 /hpf (0-4); URINE WBC >30 /hpf (0-5)
[2016-08-08 00:23] LABS: URINE BACTERIA 4+ (NEG); URINE MUCUS PRESENT (NONE PRSENT); ZZURINE CULT IF INDIC CATH YES
[2016-08-08] MEDS ORDERED: ERTAPENEM 1 GM ADDVIAL IV ONE (01:15)
[2016-08-08] MEDS ORDERED: MAGNESIUM HYDROXIDE SUSP 30 ML UDC PO PRN (02:00)
[2016-08-08] MEDS ORDERED: ALUMINUM/MAGNESIUM/SIMETH (MAALOX MAX) 30 ML UDC PO PRN (02:00)
[2016-08-08] MEDS ORDERED: MoRPHine SULFATE 4 MG/ML 1 ML CARP\\VIAL IV PRN (02:00)
[2016-08-08] MEDS ORDERED: POLYETHYLENE (MIRALAX) 17 GM PACK PO PRN (02:00)
[2016-08-08] MEDS ORDERED: ACETAMINOPHEN 325 MG TAB PO PRN (02:00)
[2016-08-08] MEDS: MoRPHine SULFATE 4 MG/ML 1 ML CARP\\VIAL IV PRN (02:02)
[2016-08-08 02:50] VITALS: BP_SYST 171; BP_SYST 183; BP_DIAS 106; BP_DIAS 114; PULSE 86; PULSE 99; TEMP 36.8; O2SAT 95; O2SAT 96; Ht 177.8 cm; Wt 122.2 kg
--- NOTE | 2016-08-08 03:34 | History and Physical ---
History & Physical Date & Time of Service: Aug 08, 2016 at 03:27 Chief Complaint: Catheter-Associated Urinary Tract Infection Primary Care Physician: Reza Ocasio Jr,D.O. History of Present Illness Source: patient 61-year-old male who presents with progressively worsening abdominal pain for the past 1 month. He describes the pain as sharp persistently 10/10 pain across the lower abdomen. It does occasionally radiate into the back. There are no alleviating or exacerbating factors. Pain is constant. As result of the persistence and severity, he decided to come to the emergency department for further evaluation. He does have a chronic indwelling Wills catheter due to chronic urinary incontinence. He states that it was placed because he is unable to be aware when he urinates. He denies any urinary symptoms including dysuria. He does feel that today the catheter has been putting out slightly cloudy urine. He denies blood in the urine. He notes feeling feverish at home, but denies chills or night sweats. He has had intermittent nausea and vomiting for the past 1 month. He denies chest pain , cough, wheezing. He has long-standing shortness of breath with exertion that has not changed. Regarding his catheter, it is changed once monthly. The last catheter change was 2 weeks ago. He is followed by Dr. Case from urology. Typically he notes he does not have difficulty being catheterized. He unfortunately reports that he has had multiple urinary tract infections since placement of his catheter. He reports that this would be his fourth infection in the past year. His appetite has been slightly reduced for the past few days. He denies diarrhea or constipation. Past Medical/Surgical History Medical Problems: (1) Diabetes mellitus Status: Chronic (2) Gastroesophageal reflux disease Status: Chronic (3) Gout Status: Chronic (4) Parkinson's disease Status: Chronic (5) Pulmonary embolism/bilateral DVT Status: Resolved Roscoe filter placement with IVC stenting Chronic urinary incontinence Type 2 diabetes mellitus Hypercholesterolemia Family History Cancer Diabetes mellitus FH: heart disease Hypertension Social History Smoking Status: Never Smoker Smokeless Tobacco Use: No Alcohol Use: none Drug Use: none Marital Status: single Housing status: lives alone Occupational Status: retired Immunizations History of Tetanus Vaccine?: probably over 10 yrs ago History of Pneumococcal: apr 2004 History of Hepatitis B Vaccine: 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 Multi-Drug Resistant Organisms History of MDRO: No Allergies Coded Allergies: Penicillins (Verified Allergy, Severe, 06/21/16) SEVERE RXN PER PT Cephalosporins (Verified Allergy, Unknown, 06/21/16) Sulfamethoxazole w/Trimethoprim (Verified Allergy, Unknown, ., 06/21/16) TAKES LASIX AT HOME Home Medications Scheduled Allopurinol (Allopurinol), 100 MG PO DAILY Amantadine HCl (Amantadine HCl), 100 MG PO BID Ascorbic Acid (Vitamin C), 1 TABS PO QAM Carbidopa/Levodopa (Sinemet Cr 50MG/200MG), 1 TAB PO BID Enoxaparin (Lovenox), 150 MG SQ BID Ferrous Sulfate (Iron), 1 TAB PO DAILY Furosemide (Furosemide), 80 MG PO BID Insulin Aspart (Novolog Flexpen), 10 UNITS SC AC Insulin Glargine (Lantus), 45 UNITS SC BID Lisinopril (Lisinopril), 40 MG PO BID Metoprolol Tartrate (Lopressor), 25 MG PO BID Nystatin (Nystop), 1 APPLN EXT TID Omeprazole (Prilosec), 40 MG PO DAILY Oxycodone/Acetaminophen 5MG/325MG (Oxycodone/Acetaminophen 5MG/325MG), 1-2 TABS PO Q4 Pregabalin (Lyrica), 300 MG PO BID Simvastatin (Simvastatin), 20 MG PO DAILY Review of Systems 10 point review of systems negative unless stated above in the history of present illness. Physical Exam Vital Signs Date Time Temp Pulse Resp B/P Pulse Ox O2 Delivery O2 Flow Rate FiO2 08/08/16 02:42 100 18 156/94 95 08/08/16 01:22 93 18 179/96 98 Room Air 08/07/16 23:22 99 18 163/105 97 Room Air 08/07/16 22:03 101 18 170/108 98 Room Air 08/07/16 20:06 37.2 128 18 191/145 96 Room Air General Appearance: WD/WN, no apparent distress, + obese Head: normocephalic, atraumatic Eyes: normal inspection, EOMI ENT: hearing grossly normal, pharynx normal Neck: supple, no adenopathy, no JVD Respiratory/Chest: lungs clear, no respiratory distress Cardiovascular: regular rate, rhythm, no gallop, no murmur Abdomen/GI: normal bowel sounds, soft, + tenderness (across lower abdomen, left slightly worse than the right lower quadrant) Back: normal inspection, no CVA tenderness, no muscle spasm, + pertinent finding (well-healed scar from lumbar spine surgery) Extremities/Musculoskelatal: no calf tenderness, no pedal edema Neurologic/Psych: alert, normal mood/affect, oriented x 3 Lymphatic: no adenopathy Diagnostics Laboratory Results Results Past 24 Hours Test 08/07/16 22:34 08/07/16 23:30 Range/Units Urine Color JON Urine Appearance TURBID CLEAR Urine pH >= 9.0 4.5-7.5 Urine Specific [place] <= 1.005 1.000-1.030 Urine Protein 2+ NEG Urine Glucose (UA) TRACE NEG Urine Ketones TRACE NEG Urine Occult Blood TRACE NEG Urine Nitrite POS NEG Urine Bilirubin NEG NEG Urine Urobilinogen NEG NEG Urine Leukocyte Esterase LARGE NEG Urine RBC 0-4 0-4 /hpf Urine WBC >30 0-5 /hpf Urine Epithelial Cells 20-30 0-5 /lpf Urine Triple Phosphate Crystals PRESENT NONE PRSENT Urine Bacteria 4+ NEG Urine Mucus PRESENT NONE PRSENT White Blood Count 7.79 4.8-10.8 K/uL Red Blood Count 4.91 4.7-6.1 M/uL Hemoglobin 13.8 14.0-18.0 g/dL Hematocrit 41.5 42-52 % Mean Corpuscular Volume 84.5 80-100 fL Mean Corpuscular Hemoglobin 28.1 25-34 pg Mean Corpuscular Hemoglobin Concent 33.3 32-36 g/dl Platelet Count 190 130-400 K/uL Mean Platelet Volume 9.2 7.4-10.4 fL Neutrophils (%) (Auto) 68.9 % Lymphocytes (%) (Auto) 21.8 % Monocytes (%) (Auto) 5.6 % Eosinophils (%) (Auto) 3.1 % Basophils (%) (Auto) 0.3 % Neutrophils # (Auto) 5.37 1.4-6.5 K/uL Lymphocytes # (Auto) 1.70 1.2-3.4 K/uL Monocytes # (Auto) 0.44 0.11-0.59 K/uL Eosinophils # (Auto) 0.24 0-0.5 K/uL Basophils # (Auto) 0.02 0-0.2 K/uL RDW Standard Deviation 39.8 36.4-46.3 fL RDW Coefficient of Variation 13.0 11.5-14.5 % Immature Granulocyte % (Auto) 0.3 % Immature Granulocyte # (Auto) 0.02 0.00-0.02 K/uL Prothrombin Time 10.7 9.0-12.0 SECONDS Prothromb Time International Ratio 1.0 0.9-1.1 Activated Partial Thromboplast Time 30.1 21.0-31.0 SECONDS Partial Thromboplastin Ratio 1.2 Sodium Level 134 136-145 mmol/L Potassium Level 4.6 3.5-5.1 mmol/L Chloride Level 98 98-107 mmol/L Carbon Dioxide Level 28 21-32 mmol/L Anion Gap 8.0 3-11 mmol/L Blood Urea Nitrogen 16 7-18 mg/dl Creatinine 1.20 0.60-1.40 mg/dl Est Creatinine Clear Calc Drug Dose 85.3 ml/min Estimated GFR () 74.7 Estimated GFR (Non- 64.4 BUN/Creatinine Ratio 13.0 10-20 Random Glucose 218 70-99 mg/dl Lactic Acid Level 1.0 0.4-2.0 mmol/L Calcium Level 9.1 8.5-10.1 mg/dl Total Bilirubin 0.3 0.2-1 mg/dl Aspartate Amino Transf (AST/SGOT) 13 15-37 U/L Alanine Aminotransferase (ALT/SGPT) 22 12-78 U/L Alkaline Phosphatase 129 45-117 U/L Total Protein 7.8 6.4-8.2 gm/dl Albumin 3.3 3.4-5.0 gm/dl Globulin 4.5 2.5-4.0 gm/dl Albumin/Globulin Ratio 0.7 0.9-2 Lipase 178 73-393 U/L Microbiology Results 08/07/16 Urine Culture, Swapna Batch Pending Diagnostic Radiology CT abdomen Bilateral perinephric stranding, suggestive of infection if clinically correlated EKG Sinus tachycardia, rate 104 with first-degree AV block Impression Assessment and Plan 61-year-old male with chronic indwelling Wills catheter presents with catheter associated urinary tract infection. This is not a new phenomenon for him. This is his fourth infection in the past year. At this time he requires IV antibiotic treatment and consultation with urology and infectious diseases. Our plan for him is as follows Catheter associated urinary tract infection - Abnormal UA; urine cultures pending - No septic features on arrival, blood cultures have are not required at this time - Reviewed culture data from 06/21/2016; urine culture grew Providencia species , resistant to quinolones Patient has Cephalosporin allergy therefore Rocephin not be appropriate to use - IV ertapenem was started. Patient did receive previously and did tolerate - IV rehydration with NSS 100 ml/hr There is a previous CHF history as such lower rate was used - Morphine 4 mg every 2 hours; scale down as patient tolerates - Infectious diseases to be consulted for recommendations on chronic antimicrobial prophylaxis - Urology to be consulted for chronic indwelling Wills catheter management - Follow daily CBC and PRP. At this time there is no evidence of leukocytosis or JOLLY CHF with preserved EF - Last EF noted to be 55-60% - Continue home dose of Lisinopril, Metoprolol and Lasix Hypercholesterolemia - Continue simvastatin Parkinson's - Continue amantadine - Continue Sinemet Type 2 diabetes - Home insulin regimen has been stopped - Sliding-scale been started Goal 140-180; CF 30; Carb Ratio 10 AC/HS checks - Type 2 diabetic diet Gout - Continue allopurinol DVT prophylaxis with history of DVT/PE - Patient on home regimen of 150 mg Lovenox s.c BID . History of extensive DVT - OSMANY stockings - SCDs CODE STATUS - Level I full code - Patient designates his son, Binu Gonzalez, to be decision-maker if he cannot make decisions for himself Disposition - Med/Surg - OT and PT orders placed VTE Prophylaxis VTE Risk Assessment Done? Y/N: Yes Risk Level: Moderate Assessment and Plan Attending Addendum: I have physically seen and examined this patient, have directed their medical care, have supervised the medical residents activities, and agree with the H&P as noted above, with the following changes: NONE The patient is awake, well-developed and adequately nourished, alert and oriented 3, normocephalic and atraumatic, lying in bed and in no acute distress. HEENT--PERRL, EOMI, mucous membranes and oropharynx dry. Neck--supple, no JVD or bruits, thyroid normal, trachea midline, no adenopathy. Heart--normal S1 and S2, no extra beats, no murmurs, rubs or gallops. Lungs--clear bilaterally with good air movement, no respiratory distress, no accessory muscle use. Abdomen--normal bowel sounds and soft, tender and fullness over bladder, and nondistended, no hernias or masses, no organomegaly. Extremities--no cyanosis, clubbing or edema. There are good distal pulses b/l. Dermatologic--normal skin turgor, normal color, warm and dry, no abnormal lymph nodes, no rash. Neurologic--cranial nerves II through XII grossly intact, motor and sensory examination normal. Rheumatologic--normal range of motion, nontender, muscles and joints. Psychiatric--normal affect. Assessment and Plan: Catheter associated urinary tract infection--his most recent urine culture grew over dementia, that is resistant to quinolones, and with his multiple drug sensitivities, most reasonable option during treatment will be IV ertapenem. The antibiotic spectrum was run for this particular bacteria was somewhat limited, and we will consult infectious disease consider possibilities such as Zyvox or other classes such as tetracycline's which were not run in this study. Continue to try to flush his urinary system with normal saline at 150 ML's per hour. We'll also consult his urologist. Follow results of urine culture and sensitivities performed today Hypercholesterolemia--continue simvastatin 20 mg by mouth daily. Diabetes mellitus--until his oral intake was confirmed, we will continue Lantus insulin at a reduced dose from 45 units to 30 subcutaneous twice a day, and place on Accu-Cheks before meals and at bedtime with NovoLog coverage. We will hold his standing order of NovoLog 10 units subcutaneous before meals. Hypertension--continue metoprolol tartrate 25 mg by mouth twice a day, lisinopril 40 mg by mouth twice a day and furosemide 80 mg twice a day. Gout--continue allopurinol 100 mg by mouth daily. Parkinson's continue amantadine 100 mg by mouth twice a day and carbidopa/ levodopa CR 50/200 one tablet by mouth twice a day. Extensive DVT history--continue his chronic Lovenox 150 mg every twice a day. Peripheral neuropathy--continue Lyrica 300 mg by mouth twice a day. GERD--continue omeprazole 40 mg by mouth daily.
[2016-08-08] MEDS ORDERED: GLUCOSE 10 TABS/TUBE PO PRN (03:45)
[2016-08-08] MEDS ORDERED: DEXTROSE 50% 50 ML SYR IV PRN (03:45)
[2016-08-08] MEDS ORDERED: GLUCOSE 40% GEL 15 GM TUBE PO PRN (03:45)
[2016-08-08] MEDS ORDERED: GLUCAGON FOR INJ 1 MG VIAL SQ PRN (03:45)
[2016-08-08] MEDS ORDERED: NURSING VERBAL MED ORDER ONE (04:00)
[2016-08-08] MEDS ORDERED: LISINOPRIL 40 MG TAB PO STA (04:08)
[2016-08-08] MEDS ORDERED: METOPROLOL TARTRATE 25 MG TAB PO STA (04:08)
[2016-08-08] MEDS: SODIUM CHLORIDE 0.9% 1000ML 1,000 ML IV SCH ×3 (05:21→21:26)
[2016-08-08 05:55] VITALS: BP 148/84
[2016-08-08 06:55] LABS: BASO % 0.5 %; BASO ABS # 0.03 K/uL (0-0.2); COMPLETE YES; EOS % 3.7 %; HEMATOCRIT 42.2 % (42-52); IG% 0.3 %; LYMPH ABS # 1.57 K/uL (1.2-3.4); MEAN CELL VOLUME 86.1 fL (80-100); MEAN CORPUSCULAR HEMOGLOBIN 28.8 pg (25-34); MEAN CORPUSCULAR HGB CONC 33.4 g/dl (32-36); MEAN PLATELET VOLUME 9.7 fL (7.4-10.4); MONO % 5.8 %; NEUT % 65.7 %; PLATELET COUNT 185 K/uL (130-400); WHITE BLOOD COUNT 6.53 K/uL (4.8-10.8)
[2016-08-08 07:03] VITALS: BP 138/80; PULSE 62; TEMP 36.5; O2SAT 97
[2016-08-08 07:25] LABS: BUN/CREATININE RATIO 13.5 (10-20)
--- NOTE | 2016-08-08 07:46 | Hospitalist Progress Note ---
Hospitalist Progress Note Date of Service Aug 08, 2016. (Aubree Vogel PA-C) Subjective Pt evaluation today including: conversation w/ patient, physical exam, chart review, lab review, review of studies, review of inpatient medication list Pain: Mild low abdominal pain PO Intake: Good Voiding: robert catheter in place The patient was seen and examined this morning. Pt reports having some mild lower abdominal pain but that it is improved compared to last night, still feels somewhat weak today.Pt denies cramping or abdominal distension. + nausea but is mild, tolerating oral diet today. He denies fevers, chills, sweats, weakness. Pt reports having 3 UTIs since placement of chronic robert in ~ 1 year ago. All Other Systems: Reviewed and Negative (Other than listed above) (Aubree Vogel PA-C) Objective Vital Signs Date Time Temp Pulse Resp B/P Pulse Ox O2 Delivery O2 Flow Rate FiO2 08/08/16 07:03 36.5 62 18 138/80 97 Room Air 08/08/16 05:55 148/84 08/08/16 02:50 36.8 99 16 183/114 96 Room Air 08/08/16 02:50 96 Room Air 08/08/16 02:50 36.8 86 16 171/106 95 Room Air 08/08/16 02:42 100 18 156/94 95 08/08/16 01:22 93 18 179/96 98 Room Air 08/07/16 23:22 99 18 163/105 97 Room Air 08/07/16 22:03 101 18 170/108 98 Room Air 08/07/16 20:06 37.2 128 18 191/145 96 Room Air (Aubree Vogel PA-C) Physical Exam General Appearance: WD/WN, no apparent distress, + obese Eyes: PERRL, EOMI ENT: hearing grossly normal, pharynx normal Neck: supple, no JVD Respiratory/Chest: lungs clear, no respiratory distress, no accessory muscle use Cardiovascular: regular rate, rhythm, no murmur Abdomen: normal bowel sounds, soft, + tenderness (in lower abdominal region) Extremities: no pedal edema, no calf tenderness, + pertinent finding (+ tenderness in the LLE but pt reports this is chronic. Denies numbness or tingling in extremities. ) Neurologic/Psychiatric: alert, oriented x 3, + pertinent finding (speech is somewhat slow, unable to recall recent events at times, + poor historian) Skin: normal color, warm/dry (Aubree Vogel, MAHIN) Laboratory Results Last 24 Hours Test 08/07/16 22:34 08/07/16 23:30 08/08/16 06:38 Urine Color JON Urine Appearance TURBID Urine pH >= 9.0 Urine Specific [place] <= 1.005 Urine Protein 2+ Urine Glucose (UA) TRACE Urine Ketones TRACE Urine Occult Blood TRACE Urine Nitrite POS Urine Bilirubin NEG Urine Urobilinogen NEG Urine Leukocyte Esterase LARGE Urine RBC 0-4 /hpf Urine WBC >30 /hpf Urine Epithelial Cells 20-30 /lpf Urine Triple Phosphate Crystals PRESENT Urine Bacteria 4+ Urine Mucus PRESENT White Blood Count 7.79 K/uL 6.53 K/uL Red Blood Count 4.91 M/uL 4.90 M/uL Hemoglobin 13.8 g/dL 14.1 g/dL Hematocrit 41.5 % 42.2 % Mean Corpuscular Volume 84.5 fL 86.1 fL Mean Corpuscular Hemoglobin 28.1 pg 28.8 pg Mean Corpuscular Hemoglobin Concent 33.3 g/dl 33.4 g/dl Platelet Count 190 K/uL 185 K/uL Mean Platelet Volume 9.2 fL 9.7 fL Neutrophils (%) (Auto) 68.9 % 65.7 % Lymphocytes (%) (Auto) 21.8 % 24.0 % Monocytes (%) (Auto) 5.6 % 5.8 % Eosinophils (%) (Auto) 3.1 % 3.7 % Basophils (%) (Auto) 0.3 % 0.5 % Neutrophils # (Auto) 5.37 K/uL 4.29 K/uL Lymphocytes # (Auto) 1.70 K/uL 1.57 K/uL Monocytes # (Auto) 0.44 K/uL 0.38 K/uL Eosinophils # (Auto) 0.24 K/uL 0.24 K/uL Basophils # (Auto) 0.02 K/uL 0.03 K/uL RDW Standard Deviation 39.8 fL 42.0 fL RDW Coefficient of Variation 13.0 % 13.3 % Immature Granulocyte % (Auto) 0.3 % 0.3 % Immature Granulocyte # (Auto) 0.02 K/uL 0.02 K/uL Prothrombin Time 10.7 SECONDS Prothromb Time International Ratio 1.0 Activated Partial Thromboplast Time 30.1 SECONDS Partial Thromboplastin Ratio 1.2 Sodium Level 134 mmol/L 135 mmol/L Potassium Level 4.6 mmol/L 4.0 mmol/L Chloride Level 98 mmol/L 100 mmol/L Carbon Dioxide Level 28 mmol/L 28 mmol/L Anion Gap 8.0 mmol/L 7.0 mmol/L Blood Urea Nitrogen 16 mg/dl 14 mg/dl Creatinine 1.20 mg/dl 1.00 mg/dl Est Creatinine Clear Calc Drug Dose 85.3 ml/min 100.4 ml/min Estimated GFR () 74.7 93.1 Estimated GFR (Non- 64.4 80.3 BUN/Creatinine Ratio 13.0 13.5 Random Glucose 218 mg/dl 186 mg/dl Lactic Acid Level 1.0 mmol/L Calcium Level 9.1 mg/dl 9.0 mg/dl Total Bilirubin 0.3 mg/dl Aspartate Amino Transf (AST/SGOT) 13 U/L Alanine Aminotransferase (ALT/SGPT) 22 U/L Alkaline Phosphatase 129 U/L Total Protein 7.8 gm/dl Albumin 3.3 gm/dl Globulin 4.5 gm/dl Albumin/Globulin Ratio 0.7 Lipase 178 U/L (Aubree Vogel, PAHoneyC) Assessment and Plan 61-year-old male with chronic indwelling Robert catheter presents with catheter associated urinary tract infection. Catheter associated urinary tract infection - Dirty UA, follow UCx - Reviewed culture data from 06/21/2016; urine culture grew Providencia species most recently in 06/21/16 and then had klebsiella in 03/27/16 resistant to quinolones - IV ertapenem was started.- ID consulted for abx recommendations with pts allergies (cephalosporins, penicillins, bactrim) - IV rehydration with NSS 100 ml/hr, monitor closely for volume overload as pt with CHF hx- - Analgesia with morphine sulfate 4 mg every 2 hours - Urology to be consulted for chronic indwelling Robert catheter management - was changed 2 weeks ago, see's Dr. Case as outpatient. - Follow daily CBC and PRP. CHF with preserved EF - Last EF noted to be 55-60% - Continue home dose of Lisinopril, Metoprolol and Lasix Hypercholesterolemia - Continue simvastatin Parkinson's - Continue amantadine - Continue Sinemet DM II - Hold home insulin regimen - Cont ISS with accuchecks Goal 140-180; CF 30; Carb Ratio 10 Gout - Continue allopurinol DVT ppx with history of DVT/PE : - Patient on home regimen of 150 mg Lovenox s.c BID . History of extensive DVT, cont TEDs and SCDs CODE STATUS: FULL CODE - Patient designates his son, Binu Gonzalez, to be decision-maker if he cannot make decisions for himself Disposition: Med/Surg, await recs by PT/OT (Aubree Vogel, MAHIN) PA Physician Supervision Note: I interviewed and examined the patient. Discussed with Aubree Vogel PAC and agree with findings and plan as documented in the note. Any exceptions or clarifications are listed here: None this pt is doing well, awaiting sensitivities vitals noted, labs checked htn is stable to low on metoprolol and lisinopril ertapenem is chosen for cath associated uti poa parkisons, sinemet and amatadine diabetes on lantus and ssi Documented By: Carroll Barnhart (Carroll Barnhart M.D.)
--- NOTE | 2016-08-08 07:49 | DIAGNOSTIC IMAGING REPORT ---
ABDOMEN AND PELVIS CT WITH IV CONTRAST CT DOSE: 1923.77 mGy.cm HISTORY: Generalized abdominal pain. TECHNIQUE: Multiaxial CT images of the abdomen and pelvis were performed following the use of intravenous contrast. COMPARISON STUDY: Chest abdomen pelvis CTA 05/14/2016. FINDINGS: The lung bases are clear. No pneumoperitoneum. No pneumatosis. No suspicious lytic or blastic osseous lesions. Wills catheter within the decompressed bladder. There is bladder wall thickening and adjacent fat stranding. A few colonic diverticula. No bowel wall thickening or obstruction. The liver, gallbladder, spleen, adrenal glands, and pancreas are unremarkable. There are 2 stones within the lower pole the left kidney with the largest measuring 5 mm. There is focal scarring within the lower pole the left kidney. No hydronephrosis. There is a subcentimeter hypodense lesion within the kidneys with the largest on the left measuring 9 mm. Technically, these are too small to characterize. No retroperitoneal lymphadenopathy. The IVC and iliac vein stents are again noted. No definite contrast within the stents. These may be occluded. Multiple abdominal wall varicosities persist. Normal caliber abdominal aorta. Bilateral mild perinephric edema is likely chronic. IMPRESSION: 1. There is again noted a stent within the IVC and bilateral iliac veins. No definite contrast within the stents raising the possibility of chronic thrombosis. However, this could be related to the metallic artifact from the stents. 2. No bowel wall thickening or obstruction. 3. Left-sided nephrolithiasis. No hydronephrosis. 4. The bladder is decompressed by Wills catheter. There is thickening of the bladder wall with surrounding fat stranding. This is consistent with a cystitis. Recommend correlation with urinalysis. Electronically signed by: Silver Rhodes M.D. 08/08/2016 7:47 AM Dictated Date/Time: 08/08/2016 7:39 AM
[2016-08-08] MEDS ORDERED: ENOXAPARIN 40 MG/0.4 ML SYR SQ SCH (09:00)
[2016-08-08] MEDS ORDERED: METOPROLOL TARTRATE 25 MG TAB PO SCH (09:00)
[2016-08-08] MEDS ORDERED: LISINOPRIL 40 MG TAB PO SCH (09:00)
[2016-08-08] MEDS ORDERED: CIPROFLOXACIN / D5W 400 MG in PREMIXED IN D5W 200 ML IV SCH (09:00)
[2016-08-08] MEDS: INSULIN ASPART 100 UNITS/ML 3 ML PEN SC SCH ×4 (09:05→21:00)
[2016-08-08] MEDS: INSULIN GLARGINE SOLOSTAR 100 UNITS/ML 3 ML PEN SC SCH ×2 (09:06→21:25)
[2016-08-08] MEDS: FERROUS SULFATE 325 MG TAB PO SCH (09:06)
[2016-08-08] MEDS: FUROSEMIDE 80 MG TAB PO SCH ×2 (09:07→19:31)
[2016-08-08] MEDS: PANTOprazole SOD 40 MG TAB PO SCH (09:07)
[2016-08-08] MEDS: CARBIDOPA/LEVODOPA 50/200MG EXT REL TAB PO SCH ×2 (09:08→21:18)
[2016-08-08] MEDS: ALLOPURINOL 100 MG TAB PO SCH (09:09)
[2016-08-08] MEDS: AMANTADINE HCL 100 MG CAP PO SCH ×2 (09:09→21:20)
[2016-08-08] MEDS: ASCORBIC ACID 500 MG TAB PO SCH (09:09)
[2016-08-08] MEDS: ENOXAPARIN 150 MG/1ML SYR SQ SCH ×2 (09:10→21:19)
[2016-08-08] MEDS: NYSTATIN POWDER 15GM BTL EXT SCH ×3 (09:26→21:21)
[2016-08-08] MEDS: PREGABALIN 150 MG CAP PO SCH ×2 (09:28→21:25)
[2016-08-08 09:43] LABS: ACT87 HEP C IGG SCREEN** NEG (NEG)
[2016-08-08] MEDS: OXYCODONE/ACETAMINOPHEN 5-325 TAB PO PRN (10:28)
--- NOTE | 2016-08-08 10:48 | Urology Consultation ---
History General Date of Service: Aug 08, 2016. Primary Care Physician: Reza Ocasio JrD.O. Pt seen a urologist before?: Yes (Dr. Nino Case) If yes, why?: Neurogenic bladder/urinary retention. History of Present Illness 61 year old male admitted with UTI. He was a new pt to our service in Apr 2016. He was seen again in May 2016. Reviewed his [employer] chart. No positive urine cultures noted. A cath culture from May 2016 did not show any significant growth. Pt reports he has had 4 UTIs in the past year- I do not see any confirmed documentation for this. He was to have urodynamic studies in our office to determine level of bladder function/ bladder outlet obstruction for consideration of possible TURP. Pt cancelled his follow up appt. Pt is poor historian but does not feel he has had a febrile UTI. He has his chronic robert catheter due to his incontinence/BPH and retention. He reports he does not always know when he has to void and is often incontinent. Unable to CIC due to hx of Parkinson's and limited dexterity. He is on tamsulosin and avodart. Urine culture is currently pending and is on IV ertapenem. Has allergies to Sulfa, PCNs and cephalosporins. WBC, creatinine are normal. Note his blood glucose is elevated- this could be contributory to his UTIs if glycosuria. CT scan showed left sided nonobstructing stone. No hydro. Laboratory Labs were reviewed and are within normal limits unless listed below. Labs are available in the chart and at [facility] Problem List Medical Problems: (1) Elevated lactic acid level Status: Acute (2) Lower abdominal pain Status: Acute (3) Neurogenic bladder Status: Acute (4) Pyelonephritis Status: Acute (5) Sepsis Status: Acute (6) Spinal stenosis Status: Acute (7) Urinary tract infection Status: Acute (8) Urinary tract infection Status: Acute (9) UTI (urinary tract infection) Status: Acute Past History diabetes, GERD, other (Parkinsons) Family History Cancer Diabetes mellitus FH: heart disease Hypertension Social History Hx Tobacco Use In Past Year?: No Smoking: non-smoker Marital status: single Housing status: lives alone Occupation status: retired Immunizations History of Tetanus Vaccine?: probably over 10 yrs ago History of Pneumococcal: apr 2004 History of Hepatitis B Vaccine: 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 History of MDRO No Allergies Coded Allergies: Penicillins (Verified Allergy, Severe, 06/21/16) SEVERE RXN PER PT Cephalosporins (Verified Allergy, Unknown, 06/21/16) Sulfamethoxazole w/Trimethoprim (Verified Allergy, Unknown, ., 06/21/16) TAKES LASIX AT HOME Medications Home Medications: Home Meds and Scripts Medications Dose Route/Sig Max Daily Dose Days Date Category Dose Instructions Lovenox (Enoxaparin Sodium) 150 Mg/1 Ml Inj 150 Mg SQ BID 08/07/16 Reported Vitamin C (Ascorbic Acid) 500 Mg Tab 1 Tabs PO QAM 05/14/16 Reported Iron (Ferrous Sulfate) 325 Mg Tab 1 Tab PO DAILY 05/14/16 Reported Lisinopril 40 Mg Tab 40 Mg PO BID 05/14/16 Reported Lantus (Insulin Glargine) 100 Unit/Ml Inj 45 Units SC BID 05/14/16 Reported Furosemide 80 Mg Tab 80 Mg PO BID 05/14/16 Reported Novolog Flexpen (Insulin Aspart) 100 Units/Ml Inj 10 Units SC AC 02/28/16 Rx Nystop (Nystatin) 45 Appln/15 Gm Powd 1 Appln EXT TID 10 02/28/16 Rx apply in between skin folds on lower abdomen for 10 days Sinemet Cr 50MG/200MG (Carbidopa/Levodopa) Tabcr 1 Tab PO BID 02/24/16 Reported Amantadine HCl 100 Mg Cap 100 Mg PO BID 02/24/16 Reported Lopressor (Metoprolol Tartrate) 25 Mg Tab 25 Mg PO BID 02/24/16 Reported Oxycodone/Acetaminophen 5MG/325MG (Oxycodone/Acetaminophen) 1 Tab Tab 1-2 Tabs PO Q4 02/24/16 Reported Lyrica (Pregabalin) 300 Mg Cap 300 Mg PO BID 02/24/16 Reported Allopurinol 100 Mg Tab 100 Mg PO DAILY 02/24/16 Reported Simvastatin 20 Mg Tab 20 Mg PO DAILY 02/24/16 Reported Prilosec (Omeprazole) 40 Mg Cap 40 Mg PO DAILY 02/24/16 Reported Inpatient Medications: Current Inpatient Medications Medications (Trade) Dose Ordered Sig/Apryl Route Start Time Stop Time Status Last Admin Dose Admin Ioversol (Optiray 320) 111 ml UD PRN IV 08/07/16 22:00 08/11/16 21:59 Acetaminophen (Tylenol Tab) 650 mg Q4H PRN PO 08/08/16 02:00 09/07/16 01:59 Al Hydrox/Mg Hydrox/Simethicone (Maalox Max Susp) 15 ml Q4H PRN PO 08/08/16 02:00 09/07/16 01:59 Magnesium Hydroxide (Milk Of Magnesia Susp) 30 ml Q6H PRN PO 08/08/16 02:00 09/07/16 01:59 Polyethylene (Miralax Powder Packet) 17 gm DAILY PRN PO 08/08/16 02:00 09/07/16 01:59 Ondansetron HCl 4 mg 4 mg Q6H PRN IV 08/08/16 02:00 09/07/16 01:59 Sodium Chloride (Nss 1000ml) 1,000 ml @ 100 mls/hr Q10H IV 08/08/16 03:00 09/07/16 02:59 08/08/16 05:21 150 MLS/HR Morphine Sulfate (MoRPHine SULFATE INJ) 4 mg Q1H PRN IV 08/08/16 02:00 08/22/16 01:59 Allopurinol (Zyloprim Tab) 100 mg DAILY PO 08/08/16 09:00 09/07/16 08:59 08/08/16 09:09 100 MG Amantadine HCl (Symmetrel Cap) 100 mg BID PO 08/08/16 09:00 09/07/16 08:59 08/08/16 09:09 100 MG Ascorbic Acid (Vitamin C Tab) 500 mg QAM PO 08/08/16 09:00 09/07/16 08:59 08/08/16 09:09 500 MG Carbidopa/Levodopa (Sinemet Cr 50/ 200MG Tab) 1 tab BID PO 08/08/16 09:00 09/07/16 08:59 08/08/16 09:08 1 TAB Enoxaparin Sodium (Lovenox Inj) 150 mg BID SQ 08/08/16 09:00 09/07/16 08:59 08/08/16 09:10 150 MG Furosemide (Lasix Tab) 80 mg BID17 PO 08/08/16 09:00 09/07/16 08:59 08/08/16 09:07 80 MG Lisinopril (Zestril Tab) 40 mg BID PO 08/08/16 09:00 08/08/16 18:00 08/08/16 09:08 40 MG Metoprolol Tartrate (Lopressor Tab) 25 mg BID PO 08/08/16 09:00 08/08/16 18:00 08/08/16 09:07 25 MG Nystatin (Mycostatin Powder) 1 appln TID EXT 08/08/16 09:00 09/07/16 08:59 08/08/16 09:26 1 APPLN Oxycodone/ Acetaminophen (Percocet 5-325mg Tab) 1 tab Q4 PRN PO 08/08/16 02:00 08/22/16 01:59 08/08/16 10:28 1 TAB Pregabalin (Lyrica Cap) 300 mg BID PO 08/08/16 09:00 09/07/16 08:59 08/08/16 09:28 300 MG Simvastatin (Zocor Tab) 20 mg PM PO 08/08/16 21:00 09/07/16 20:59 Ferrous Sulfate (Feosol Tab) 325 mg DAILY PO 08/08/16 09:00 09/07/16 08:59 08/08/16 09:06 325 MG Pantoprazole Sodium 40 mg 40 mg DAILY PO 08/08/16 09:00 09/07/16 08:59 08/08/16 09:07 40 MG Ertapenem/Sodium Chloride (Invanz Iv/Nss Ad-Van 50ml) 50 ml @ 120 mls/hr Q24H IV 08/09/16 02:00 08/17/16 02:24 Insulin Aspart (novoLOG ASPART) SLIDING SCALE G... ACHS SC 08/08/16 08:00 09/07/16 07:59 08/08/16 09:05 6 UNITS Glucose (Glucose 40% Gel) 15-30 GRAMS 15 GRAMS... UD PRN PO 08/08/16 03:45 09/07/16 03:44 Glucose (Glucose Chew Tab) 4-8 Tablets 4 Tabl... UD PRN PO 08/08/16 03:45 09/07/16 03:44 Dextrose (Dextrose 50% 50ML Syringe) 25-50ML OF 50% DW IV FOR... UD PRN IV 08/08/16 03:45 09/07/16 03:44 Glucagon (Glucagon Inj) 1 mg UD PRN SQ 08/08/16 03:45 09/07/16 03:44 Lisinopril (Zestril Tab) 40 mg BID PO 08/08/16 21:00 09/07/16 20:59 Metoprolol Tartrate (Lopressor Tab) 25 mg BID PO 08/08/16 21:00 09/07/16 20:59 Insulin Glargine (Lantus Solostar Pen) 30 unit BID SC 08/08/16 09:00 09/07/16 08:59 08/08/16 09:06 30 UNIT Review of Systems Review of Systems Constitutional: No chills, No fever, No frequent headaches Eyes: No blurred vision Neurological: + numbness/tingling (BLE), No dizzy Endocrine: No excessive thirst Gastrointestinal: No abdominal pain, No nausea, No vomiting Cardiovascular: No chest pain Respiratory: No shortness of breath Skin: No rash Psychologic / Mental: No nervous Male : + see HPI Physical Exam Vital Signs: Vital Signs Past 12 Hours Date Time Temp Pulse Resp B/P Pulse Ox O2 Delivery O2 Flow Rate FiO2 08/08/16 07:03 36.5 62 18 138/80 97 Room Air 08/08/16 05:55 148/84 08/08/16 02:50 36.8 99 16 183/114 96 Room Air 08/08/16 02:50 96 Room Air 08/08/16 02:50 36.8 86 16 171/106 95 Room Air 08/08/16 02:42 100 18 156/94 95 08/08/16 01:22 93 18 179/96 98 Room Air 08/07/16 23:22 99 18 163/105 97 Room Air Physical Exam: General Appearance: WD/WN, no apparent distress Eyes: bilateral eyes normal inspection ENT: hearing grossly normal Neck: no JVD Respiratory/Chest: no respiratory distress, no accessory muscle use Neurologic/Psychiatric: alert, normal mood/affect, oriented x 3 Skin: normal color Assessment & Plan Assessment & Plan UTI w/ chronic robert. Urine culture is pending. Recommend continue IV ertapenem until sensitivities final. Would recommend treating with 10-14 days of oral antibx. At this time unsure # of UTIs. Pt report 4 in past year however no documented UTIs since we first evaluated him in Apr 2016. Given this and his list of allergies would recommend against antibiotic prophylaxis at this time. Again recommend UDS as outpt and possible TURP. He is aware having a chronic robert makes him more susceptible to UTIs. His blood glucose was elevated. Glycosuria noted on UA- this could be contributory to his multifactorial UTIs. Thanks for consult. Will follow up as out pt- our office will call to set up appt. No further intervention at this time. ADDENDUM: Agree with above - recommend treatment for current UTI with culture/sensitivity appropriate abx - will defer any consideration of the TURP, etc to Dr. Case at a later time as there is likely a significant incontinence risk with Parkinson's and TURP
--- NOTE | 2016-08-08 10:58 | Medical Consult ---
Consultation Date of Consultation: Aug 08, 2016. Attending Physician: Joel Bowers M.D. Reason for Consultation: Prophylactic abx History of Present Illness Patient is a 61-year-old male presented to the emergency department complaining of bilateral lower abdominal pain starting approximately 1 month ago which she rated as a 10/10 severity which continues. He did have a Wills catheter placed approximately 1 month ago due to urinary incontinence on a chronic basis. The patient states that he could not leave his room or his apartment due to his urinary incontinence, and a Wills catheter was the only way to continue his normal life. He has also had urinary tract infection on an off since his Wills catheter was placed. It was noted that he had infection with Klebsiella oxytoca on 03/27/2016, and he also had Providencia in his urine 12/23/2016. Since current admission, the patient did have a repeat blood culture, which is pending currently. His urinalysis showed mucus, triple phosphate crystals, 4+ urinary bacteria, large leukocyte esterase, and positive nitrite. The patient was placed empirically on IV ertapenem due to cephalosporin, penicillin, and Bactrim allergies. The patient's white blood cell count on admission was 7.79, and his creatinine has been stable and was 1.00 today. He did have an abdomen/ pelvic CT, which showed decompression of the bladder around the Wills catheter along with surrounding bladder wall fat stranding consistent with cystitis. Left-sided nephrolithiasis was noted, but no hydronephrosis was seen. I did discuss this patient Sangita from Urology as well. Past Medical/Surgical History Medical Problems: (1) Elevated lactic acid level Status: Acute (2) Lower abdominal pain Status: Acute (3) Neurogenic bladder Status: Acute (4) Pyelonephritis Status: Acute (5) Sepsis Status: Acute (6) Spinal stenosis Status: Acute (7) Urinary tract infection Status: Acute (8) Urinary tract infection Status: Acute (9) UTI (urinary tract infection) Status: Acute Medical Problems: (1) Catheter-associated urinary tract infection (2) Diabetes mellitus (3) Dyspnea (4) Gastroesophageal reflux disease (5) Gout (6) Parkinson's disease (7) Pulmonary embolism (8) Syncope (9) Weakness Family History Cancer Diabetes mellitus FH: heart disease Hypertension Noncontributory Social History Smoking Status: Never Smoker Smokeless Tobacco Use: No Alcohol Use: none Drug Use: none Marital Status: single Housing Status: lives alone Occupation Status: retired Allergies Coded Allergies: Penicillins (Verified Allergy, Severe, 06/21/16) SEVERE RXN PER PT Cephalosporins (Verified Allergy, Unknown, 06/21/16) Sulfamethoxazole w/Trimethoprim (Verified Allergy, Unknown, ., 06/21/16) TAKES LASIX AT HOME Home Medications Reported Home Medications Medications Dose Route/Sig Max Daily Dose Days Date Category Dose Instructions Lovenox (Enoxaparin Sodium) 150 Mg/1 Ml Inj 150 Mg SQ BID 08/07/16 Reported Vitamin C (Ascorbic Acid) 500 Mg Tab 1 Tabs PO QAM 05/14/16 Reported Iron (Ferrous Sulfate) 325 Mg Tab 1 Tab PO DAILY 05/14/16 Reported Lisinopril 40 Mg Tab 40 Mg PO BID 05/14/16 Reported Lantus (Insulin Glargine) 100 Unit/Ml Inj 45 Units SC BID 05/14/16 Reported Furosemide 80 Mg Tab 80 Mg PO BID 05/14/16 Reported Novolog Flexpen (Insulin Aspart) 100 Units/Ml Inj 10 Units SC AC 02/28/16 Rx Nystop (Nystatin) 45 Appln/15 Gm Powd 1 Appln EXT TID 10 02/28/16 Rx apply in between skin folds on lower abdomen for 10 days Sinemet Cr 50MG/200MG (Carbidopa/Levodopa) Tabcr 1 Tab PO BID 02/24/16 Reported Amantadine HCl 100 Mg Cap 100 Mg PO BID 02/24/16 Reported Lopressor (Metoprolol Tartrate) 25 Mg Tab 25 Mg PO BID 02/24/16 Reported Oxycodone/Acetaminophen 5MG/325MG (Oxycodone/Acetaminophen) 1 Tab Tab 1-2 Tabs PO Q4 02/24/16 Reported Lyrica (Pregabalin) 300 Mg Cap 300 Mg PO BID 02/24/16 Reported Allopurinol 100 Mg Tab 100 Mg PO DAILY 02/24/16 Reported Simvastatin 20 Mg Tab 20 Mg PO DAILY 02/24/16 Reported Prilosec (Omeprazole) 40 Mg Cap 40 Mg PO DAILY 02/24/16 Reported Current Inpatient Medications Current Inpatient Medications Medications (Trade) Dose Ordered Sig/Apryl Route Start Time Stop Time Status Last Admin Dose Admin Ioversol (Optiray 320) 111 ml UD PRN IV 08/07/16 22:00 08/11/16 21:59 Acetaminophen (Tylenol Tab) 650 mg Q4H PRN PO 08/08/16 02:00 09/07/16 01:59 Al Hydrox/Mg Hydrox/Simethicone (Maalox Max Susp) 15 ml Q4H PRN PO 08/08/16 02:00 09/07/16 01:59 Magnesium Hydroxide (Milk Of Magnesia Susp) 30 ml Q6H PRN PO 08/08/16 02:00 09/07/16 01:59 Polyethylene (Miralax Powder Packet) 17 gm DAILY PRN PO 08/08/16 02:00 09/07/16 01:59 Ondansetron HCl 4 mg 4 mg Q6H PRN IV 08/08/16 02:00 09/07/16 01:59 Sodium Chloride (Nss 1000ml) 1,000 ml @ 100 mls/hr Q10H IV 08/08/16 03:00 09/07/16 02:59 08/08/16 05:21 150 MLS/HR Morphine Sulfate (MoRPHine SULFATE INJ) 4 mg Q1H PRN IV 08/08/16 02:00 08/22/16 01:59 Allopurinol (Zyloprim Tab) 100 mg DAILY PO 08/08/16 09:00 09/07/16 08:59 08/08/16 09:09 100 MG Amantadine HCl (Symmetrel Cap) 100 mg BID PO 08/08/16 09:00 09/07/16 08:59 08/08/16 09:09 100 MG Ascorbic Acid (Vitamin C Tab) 500 mg QAM PO 08/08/16 09:00 09/07/16 08:59 08/08/16 09:09 500 MG Carbidopa/Levodopa (Sinemet Cr 50/ 200MG Tab) 1 tab BID PO 08/08/16 09:00 09/07/16 08:59 08/08/16 09:08 1 TAB Enoxaparin Sodium (Lovenox Inj) 150 mg BID SQ 08/08/16 09:00 09/07/16 08:59 08/08/16 09:10 150 MG Furosemide (Lasix Tab) 80 mg BID17 PO 08/08/16 09:00 09/07/16 08:59 08/08/16 09:07 80 MG Lisinopril (Zestril Tab) 40 mg BID PO 08/08/16 09:00 08/08/16 18:00 08/08/16 09:08 40 MG Metoprolol Tartrate (Lopressor Tab) 25 mg BID PO 08/08/16 09:00 08/08/16 18:00 08/08/16 09:07 25 MG Nystatin (Mycostatin Powder) 1 appln TID EXT 08/08/16 09:00 09/07/16 08:59 08/08/16 09:26 1 APPLN Oxycodone/ Acetaminophen (Percocet 5-325mg Tab) 1 tab Q4 PRN PO 08/08/16 02:00 08/22/16 01:59 08/08/16 10:28 1 TAB Pregabalin (Lyrica Cap) 300 mg BID PO 08/08/16 09:00 09/07/16 08:59 08/08/16 09:28 300 MG Simvastatin (Zocor Tab) 20 mg PM PO 08/08/16 21:00 09/07/16 20:59 Ferrous Sulfate (Feosol Tab) 325 mg DAILY PO 08/08/16 09:00 09/07/16 08:59 08/08/16 09:06 325 MG Pantoprazole Sodium 40 mg 40 mg DAILY PO 08/08/16 09:00 09/07/16 08:59 08/08/16 09:07 40 MG Ertapenem/Sodium Chloride (Invanz Iv/Nss Ad-Van 50ml) 50 ml @ 120 mls/hr Q24H IV 08/09/16 02:00 08/17/16 02:24 Insulin Aspart (novoLOG ASPART) SLIDING SCALE G... ACHS SC 08/08/16 08:00 09/07/16 07:59 08/08/16 09:05 6 UNITS Glucose (Glucose 40% Gel) 15-30 GRAMS 15 GRAMS... UD PRN PO 08/08/16 03:45 09/07/16 03:44 Glucose (Glucose Chew Tab) 4-8 Tablets 4 Tabl... UD PRN PO 08/08/16 03:45 09/07/16 03:44 Dextrose (Dextrose 50% 50ML Syringe) 25-50ML OF 50% DW IV FOR... UD PRN IV 08/08/16 03:45 09/07/16 03:44 Glucagon (Glucagon Inj) 1 mg UD PRN SQ 08/08/16 03:45 09/07/16 03:44 Lisinopril (Zestril Tab) 40 mg BID PO 08/08/16 21:00 09/07/16 20:59 Metoprolol Tartrate (Lopressor Tab) 25 mg BID PO 08/08/16 21:00 09/07/16 20:59 Insulin Glargine (Lantus Solostar Pen) 30 unit BID SC 08/08/16 09:00 09/07/16 08:59 08/08/16 09:06 30 UNIT Review of Systems Constitutional: + fatigue, + sweats, + weakness Eyes: No worsening of vision ENT: No hearing loss Respiratory: + shortness of breath (chronic), No cough Cardiovascular: No chest pain, No palpitations Abdomen: + pain (left sided mostly), No diarrhea Musculoskeletal: + swelling (bilateral LE- chronic), No joint pain Integumentary: No itch, No rash Physical Exam Date Time Temp Pulse Resp B/P Pulse Ox O2 Delivery O2 Flow Rate FiO2 08/08/16 07:03 36.5 62 18 138/80 97 Room Air 08/08/16 05:55 148/84 08/08/16 02:50 36.8 99 16 183/114 96 Room Air 08/08/16 02:50 96 Room Air 08/08/16 02:50 36.8 86 16 171/106 95 Room Air 08/08/16 02:42 100 18 156/94 95 08/08/16 01:22 93 18 179/96 98 Room Air 08/07/16 23:22 99 18 163/105 97 Room Air 08/07/16 22:03 101 18 170/108 98 Room Air 08/07/16 20:06 37.2 128 18 191/145 96 Room Air General Appearance: no apparent distress, + obese Head: normocephalic, atraumatic Eyes: normal inspection, sclerae normal ENT: hearing grossly normal Neck: supple, trachea midline Respiratory/Chest: chest non-tender, normal breath sounds, no respiratory distress, no accessory muscle use, + pertinent finding (coarse breath sounds right base) Cardiovascular: regular rate, rhythm Abdomen/GI: normal bowel sounds, soft, + tenderness (LLQ) Back: normal inspection Extremities/Musculoskelatal: + swelling (B/L LE) Neurologic/Psych: alert, normal mood/affect Skin: normal color, warm/dry, no rash Laboratory Results ABDOMEN AND PELVIS CT WITH IV CONTRAST CT DOSE: 1923.77 mGy.cm HISTORY: Generalized abdominal pain. TECHNIQUE: Multiaxial CT images of the abdomen and pelvis were performed following the use of intravenous contrast. COMPARISON STUDY: Chest abdomen pelvis CTA 05/14/2016. FINDINGS: The lung bases are clear. No pneumoperitoneum. No pneumatosis. No suspicious lytic or blastic osseous lesions. Wills catheter within the decompressed bladder. There is bladder wall thickening and adjacent fat stranding. A few colonic diverticula. No bowel wall thickening or obstruction. The liver, gallbladder, spleen, adrenal glands, and pancreas are unremarkable. There are 2 stones within the lower pole the left kidney with the largest measuring 5 mm. There is focal scarring within the lower pole the left kidney. No hydronephrosis. There is a subcentimeter hypodense lesion within the kidneys with the largest on the left measuring 9 mm. Technically, these are too small to characterize. No retroperitoneal lymphadenopathy. The IVC and iliac vein stents are again noted. No definite contrast within the stents. These may be occluded. Multiple abdominal wall varicosities persist. Normal caliber abdominal aorta. Bilateral mild perinephric edema is likely chronic. IMPRESSION: 1. There is again noted a stent within the IVC and bilateral iliac veins. No definite contrast within the stents raising the possibility of chronic thrombosis. However, this could be related to the metallic artifact from the stents. 2. No bowel wall thickening or obstruction. 3. Left-sided nephrolithiasis. No hydronephrosis. 4. The bladder is decompressed by Wills catheter. There is thickening of the bladder wall with surrounding fat stranding. This is consistent with a cystitis. Recommend correlation with urinalysis. Item Value Date Time Urine Culture Received 08/07/162233 Urine,Catheterized Pending Last 24 Hours Test 08/07/16 22:34 08/07/16 23:30 08/08/16 06:38 08/08/16 08:15 Urine Color JON Urine Appearance TURBID Urine pH >= 9.0 Urine Specific [place] <= 1.005 Urine Protein 2+ Urine Glucose (UA) TRACE Urine Ketones TRACE Urine Occult Blood TRACE Urine Nitrite POS Urine Bilirubin NEG Urine Urobilinogen NEG Urine Leukocyte Esterase LARGE Urine RBC 0-4 /hpf Urine WBC >30 /hpf Urine Epithelial Cells 20-30 /lpf Urine Triple Phosphate Crystals PRESENT Urine Bacteria 4+ Urine Mucus PRESENT White Blood Count 7.79 K/uL 6.53 K/uL Red Blood Count 4.91 M/uL 4.90 M/uL Hemoglobin 13.8 g/dL 14.1 g/dL Hematocrit 41.5 % 42.2 % Mean Corpuscular Volume 84.5 fL 86.1 fL Mean Corpuscular Hemoglobin 28.1 pg 28.8 pg Mean Corpuscular Hemoglobin Concent 33.3 g/dl 33.4 g/dl Platelet Count 190 K/uL 185 K/uL Mean Platelet Volume 9.2 fL 9.7 fL Neutrophils (%) (Auto) 68.9 % 65.7 % Lymphocytes (%) (Auto) 21.8 % 24.0 % Monocytes (%) (Auto) 5.6 % 5.8 % Eosinophils (%) (Auto) 3.1 % 3.7 % Basophils (%) (Auto) 0.3 % 0.5 % Neutrophils # (Auto) 5.37 K/uL 4.29 K/uL Lymphocytes # (Auto) 1.70 K/uL 1.57 K/uL Monocytes # (Auto) 0.44 K/uL 0.38 K/uL Eosinophils # (Auto) 0.24 K/uL 0.24 K/uL Basophils # (Auto) 0.02 K/uL 0.03 K/uL RDW Standard Deviation 39.8 fL 42.0 fL RDW Coefficient of Variation 13.0 % 13.3 % Immature Granulocyte % (Auto) 0.3 % 0.3 % Immature Granulocyte # (Auto) 0.02 K/uL 0.02 K/uL Prothrombin Time 10.7 SECONDS Prothromb Time International Ratio 1.0 Activated Partial Thromboplast Time 30.1 SECONDS Partial Thromboplastin Ratio 1.2 Sodium Level 134 mmol/L 135 mmol/L Potassium Level 4.6 mmol/L 4.0 mmol/L Chloride Level 98 mmol/L 100 mmol/L Carbon Dioxide Level 28 mmol/L 28 mmol/L Anion Gap 8.0 mmol/L 7.0 mmol/L Blood Urea Nitrogen 16 mg/dl 14 mg/dl Creatinine 1.20 mg/dl 1.00 mg/dl Est Creatinine Clear Calc Drug Dose 85.3 ml/min 100.4 ml/min Estimated GFR () 74.7 93.1 Estimated GFR (Non- 64.4 80.3 BUN/Creatinine Ratio 13.0 13.5 Random Glucose 218 mg/dl 186 mg/dl Lactic Acid Level 1.0 mmol/L Calcium Level 9.1 mg/dl 9.0 mg/dl Total Bilirubin 0.3 mg/dl Aspartate Amino Transf (AST/SGOT) 13 U/L Alanine Aminotransferase (ALT/SGPT) 22 U/L Alkaline Phosphatase 129 U/L Total Protein 7.8 gm/dl Albumin 3.3 gm/dl Globulin 4.5 gm/dl Albumin/Globulin Ratio 0.7 Lipase 178 U/L Hepatitis C Antibody Screen NEG Hepatitis C Antibody NEG Bedside Glucose 192 mg/dl Assessment & Plan Patient with left-sided abdominal pain, left sided nephrolithiasis, indwelling Wills catheter, and cystitis with culture pending. He is currently on IV Ertapenem. Due to patient allergies, feel this is appropriate to continue pending culture results. He likely will require at least 7 days of abx therapy, and will transition to PO if able when culture is available. Feel that this patient's mid abdominal pain on a chronic basis may be due to indwelling Wills- discussed this with Sangita from urology. We will follow. PROVIDER ADDENDUM: Patient examined and reviewed with Ms. Gardner. Agree with above assessment.
[2016-08-08] MEDS: ONDANSETRON INJ 2 MG/ML 2 ML VIAL IV PRN (13:49)
[2016-08-08 15:11] VITALS: BP 109/73; PULSE 67; TEMP 36.4; O2SAT 97
[2016-08-08] MEDS: METOPROLOL TARTRATE 25 MG TAB PO SCH (21:19)
[2016-08-08] MEDS: SIMVASTATIN 20 MG TAB PO SCH (21:20)
[2016-08-08] MEDS: LISINOPRIL 40 MG TAB PO SCH (21:20)
[2016-08-08 23:18] VITALS: BP 124/79; PULSE 62; TEMP 36.4; O2SAT 96
[2016-08-09] MEDS: ERTAPENEM IV 1 GM in SODIUM CHLOR 0.9% AD-VAN 50ML 50 ML IV SCH (02:06)
[2016-08-09 07:09] LABS: BASO % 0.3 %; BASO ABS # 0.02 K/uL (0-0.2); COMPLETE YES; EOS % 4.2 %; HEMATOCRIT 39.7 % (42-52); IG% 0.2 %; LYMPH % 21.9 %; LYMPH ABS # 1.42 K/uL (1.2-3.4); MEAN CELL VOLUME 87.8 fL (80-100); MEAN CORPUSCULAR HEMOGLOBIN 28.3 pg (25-34); MEAN CORPUSCULAR HGB CONC 32.2 g/dl (32-36); MEAN PLATELET VOLUME 9.5 fL (7.4-10.4); MONO % 6.5 %; NEUT % 66.9 %; PLATELET COUNT 192 K/uL (130-400); RED BLOOD COUNT 4.52 M/uL (4.7-6.1); WHITE BLOOD COUNT 6.48 K/uL (4.8-10.8)
[2016-08-09 07:35] VITALS: BP 140/80; PULSE 60; TEMP 36.5; O2SAT 93
[2016-08-09 07:49] LABS: BLOOD UREA NITROGEN 13 mg/dl (7-18); BUN/CREATININE RATIO 9.3 (10-20); CALCIUM 8.7 mg/dl (8.5-10.1); CARBON DIOXIDE 31 mmol/L (21-32); CHLORIDE 102 mmol/L (98-107); GLUCOSE 169 mg/dl (70-99); SODIUM 140 mmol/L (136-145)
[2016-08-09] MEDS: SODIUM CHLORIDE 0.9% 1000ML 1,000 ML IV SCH ×2 (08:22→18:18)
[2016-08-09] MEDS: NYSTATIN POWDER 15GM BTL EXT SCH ×3 (08:35→21:08)
[2016-08-09] MEDS: FERROUS SULFATE 325 MG TAB PO SCH (08:44)
[2016-08-09] MEDS: FUROSEMIDE 80 MG TAB PO SCH ×2 (08:47→17:14)
[2016-08-09] MEDS: METOPROLOL TARTRATE 25 MG TAB PO SCH ×2 (08:50→21:09)
[2016-08-09] MEDS: PANTOprazole SOD 40 MG TAB PO SCH (08:53)
[2016-08-09] MEDS: CARBIDOPA/LEVODOPA 50/200MG EXT REL TAB PO SCH ×2 (08:57→21:09)
[2016-08-09] MEDS: AMANTADINE HCL 100 MG CAP PO SCH ×2 (08:58→21:10)
[2016-08-09] MEDS: ASCORBIC ACID 500 MG TAB PO SCH (08:59)
[2016-08-09] MEDS: LISINOPRIL 40 MG TAB PO SCH ×2 (09:02→21:10)
[2016-08-09] MEDS: PREGABALIN 150 MG CAP PO SCH ×2 (09:12→21:09)
[2016-08-09] MEDS: ALLOPURINOL 100 MG TAB PO SCH (09:13)
[2016-08-09] MEDS: ENOXAPARIN 150 MG/1ML SYR SQ SCH ×2 (09:21→21:10)
[2016-08-09] MEDS: INSULIN GLARGINE SOLOSTAR 100 UNITS/ML 3 ML PEN SC SCH ×2 (09:33→21:17)
[2016-08-09] MEDS: INSULIN ASPART 100 UNITS/ML 3 ML PEN SC SCH ×4 (09:43→21:00)
[2016-08-09] MEDS: OXYCODONE/ACETAMINOPHEN 5-325 TAB PO PRN (09:59)
[2016-08-09 10:00] VITALS: O2SAT 93
[2016-08-09 11:58] VITALS: BP 108/71; PULSE 60; TEMP 36.4; O2SAT 96
--- NOTE | 2016-08-09 13:12 | Progress Note ---
Subjective Date of Service: Aug 09, 2016. Subjective this pt has no complaints and actually looks and feels better than 08/08 Problem List Medical Problems: (1) Elevated lactic acid level Status: Acute (2) Lower abdominal pain Status: Acute (3) Neurogenic bladder Status: Acute (4) Pyelonephritis Status: Acute (5) Sepsis Status: Acute (6) Spinal stenosis Status: Acute (7) Urinary tract infection Status: Acute (8) Urinary tract infection Status: Acute (9) UTI (urinary tract infection) Status: Acute Review of Systems Constitutional: + weakness, No chills, No fever Respiratory: No cough, No shortness of breath Cardiac: No claudication, No edema, No orthopnea Abdomen: No diarrhea, No nausea, No pain, No vomiting Male : + hematuria, + problem reported (has robert), No dysuria Psychiatric: No anhedonism, No depression symptoms Objective Vital Signs Date Time Temp Pulse Resp B/P Pulse Ox O2 Delivery O2 Flow Rate FiO2 08/09/16 07:35 36.5 60 20 140/80 93 Room Air 08/09/16 00:18 Room Air 08/08/16 23:18 36.4 62 16 124/79 96 Room Air 08/08/16 15:11 36.4 67 18 109/73 97 Room Air Physical Exam General Appearance: WD/WN, + mild distress Neck: supple, no JVD Respiratory/Chest: chest non-tender, lungs clear, normal breath sounds Cardiovascular: regular rate, rhythm, no murmur Abdomen: normal bowel sounds, non tender, soft Extremities: no pedal edema, no calf tenderness Neurologic/Psychiatric: lisw II-XII nml as tested, alert Laboratory Results Last 24 Hours Test 08/08/16 12:33 08/08/16 16:52 08/08/16 21:16 08/09/16 06:55 Bedside Glucose 183 mg/dl 203 mg/dl 179 mg/dl White Blood Count 6.48 K/uL Red Blood Count 4.52 M/uL Hemoglobin 12.8 g/dL Hematocrit 39.7 % Mean Corpuscular Volume 87.8 fL Mean Corpuscular Hemoglobin 28.3 pg Mean Corpuscular Hemoglobin Concent 32.2 g/dl Platelet Count 192 K/uL Mean Platelet Volume 9.5 fL Neutrophils (%) (Auto) 66.9 % Lymphocytes (%) (Auto) 21.9 % Monocytes (%) (Auto) 6.5 % Eosinophils (%) (Auto) 4.2 % Basophils (%) (Auto) 0.3 % Neutrophils # (Auto) 4.34 K/uL Lymphocytes # (Auto) 1.42 K/uL Monocytes # (Auto) 0.42 K/uL Eosinophils # (Auto) 0.27 K/uL Basophils # (Auto) 0.02 K/uL RDW Standard Deviation 43.5 fL RDW Coefficient of Variation 13.5 % Immature Granulocyte % (Auto) 0.2 % Immature Granulocyte # (Auto) 0.01 K/uL Sodium Level 140 mmol/L Potassium Level mmol/L Chloride Level 102 mmol/L Carbon Dioxide Level 31 mmol/L Anion Gap 7.0 mmol/L Blood Urea Nitrogen 13 mg/dl Creatinine 1.40 mg/dl Est Creatinine Clear Calc Drug Dose 71.7 ml/min Estimated GFR () 62.0 Estimated GFR (Non- 53.5 BUN/Creatinine Ratio 9.3 Random Glucose 169 mg/dl Calcium Level 8.7 mg/dl Test 08/09/16 07:51 Bedside Glucose 155 mg/dl Assessment and Plan 61 M with chronic robert cath presents with a urinary catheter associated uti poa , with fatigue labs reviewed 08/09 wbc stable, glucose is acceptable, still no sensitivities on urine htn is stable continues on metoprolol and lisinopril ertapenem is chosen for cath associated uti poa identified as gram negative awaiting sensitivities parkisons, sinemet and amatadine diabetes on lantus and ssi Documented By: Carroll Barnhart
[2016-08-09 15:21] VITALS: BP 112/73; PULSE 61; TEMP 36.4; O2SAT 98
[2016-08-09] MEDS: ONDANSETRON INJ 2 MG/ML 2 ML VIAL IV PRN (20:27)
[2016-08-09] MEDS: SIMVASTATIN 20 MG TAB PO SCH (21:09)
[2016-08-09 22:55] VITALS: BP 148/81; PULSE 65; TEMP 36.7; O2SAT 96
[2016-08-10] MEDS: ERTAPENEM IV 1 GM in SODIUM CHLOR 0.9% AD-VAN 50ML 50 ML IV SCH (02:31)
[2016-08-10] MEDS: SODIUM CHLORIDE 0.9% 1000ML 1,000 ML IV SCH ×3 (02:32→23:27)
[2016-08-10 06:04] LABS: BASO % 0.3 %; BASO ABS # 0.02 K/uL (0-0.2); COMPLETE YES; EOS % 3.8 %; HEMATOCRIT 41.4 % (42-52); IG% 0.5 %; LYMPH % 24.8 %; LYMPH ABS # 1.98 K/uL (1.2-3.4); MEAN CELL VOLUME 87.7 fL (80-100); MEAN CORPUSCULAR HEMOGLOBIN 28.6 pg (25-34); MEAN CORPUSCULAR HGB CONC 32.6 g/dl (32-36); MEAN PLATELET VOLUME 9.7 fL (7.4-10.4); MONO % 6.9 %; NEUT % 63.7 %; PLATELET COUNT 226 K/uL (130-400); RED BLOOD COUNT 4.72 M/uL (4.7-6.1)
[2016-08-10 06:35] LABS: BUN/CREATININE RATIO 12.2 (10-20); CALCIUM 8.8 mg/dl (8.5-10.1); CREATININE 1.4 mg/dl (0.60-1.40); POTASSIUM 3.6 mmol/L (3.5-5.1)
[2016-08-10 07:13] VITALS: BP 112/70; PULSE 62; TEMP 36.4; O2SAT 96
[2016-08-10] MEDS: METOPROLOL TARTRATE 25 MG TAB PO SCH ×2 (09:40→21:27)
[2016-08-10] MEDS: FUROSEMIDE 80 MG TAB PO SCH ×2 (09:41→17:11)
[2016-08-10] MEDS: CARBIDOPA/LEVODOPA 50/200MG EXT REL TAB PO SCH ×2 (09:41→21:27)
[2016-08-10] MEDS: ALLOPURINOL 100 MG TAB PO SCH (09:41)
[2016-08-10] MEDS: AMANTADINE HCL 100 MG CAP PO SCH ×2 (09:42→21:28)
[2016-08-10] MEDS: FERROUS SULFATE 325 MG TAB PO SCH (09:42)
[2016-08-10] MEDS: LISINOPRIL 40 MG TAB PO SCH ×2 (09:42→21:28)
[2016-08-10] MEDS: ASCORBIC ACID 500 MG TAB PO SCH (09:42)
[2016-08-10] MEDS: ENOXAPARIN 150 MG/1ML SYR SQ SCH ×2 (09:43→21:27)
[2016-08-10] MEDS: PANTOprazole SOD 40 MG TAB PO SCH (09:43)
[2016-08-10] MEDS: INSULIN ASPART 100 UNITS/ML 3 ML PEN SC SCH ×4 (09:48→21:00)
[2016-08-10] MEDS: INSULIN GLARGINE SOLOSTAR 100 UNITS/ML 3 ML PEN SC SCH ×2 (09:49→21:35)
[2016-08-10] MEDS: PREGABALIN 150 MG CAP PO SCH ×2 (09:50→21:24)
[2016-08-10] MEDS: NYSTATIN POWDER 15GM BTL EXT SCH (09:53)
--- NOTE | 2016-08-10 14:15 | Progress Note ---
Subjective Date of Service: Aug 10, 2016. Subjective pt feels better daily has no concerns, is a bit discouraged as he may need to stay as inpt for one week of iv antibiotic Problem List Medical Problems: (1) Elevated lactic acid level Status: Acute (2) Lower abdominal pain Status: Acute (3) Neurogenic bladder Status: Acute (4) Pyelonephritis Status: Acute (5) Sepsis Status: Acute (6) Spinal stenosis Status: Acute (7) Urinary tract infection Status: Acute (8) Urinary tract infection Status: Acute (9) UTI (urinary tract infection) Status: Acute Review of Systems Constitutional: No chills, No fever Respiratory: No cough, No shortness of breath Cardiac: No chest pain, No edema Abdomen: No diarrhea, No nausea, No pain Male : No dysuria, No hematuria Objective Vital Signs Date Time Temp Pulse Resp B/P Pulse Ox O2 Delivery O2 Flow Rate FiO2 08/10/16 08:10 Room Air 08/10/16 07:13 36.4 62 19 112/70 96 Room Air 08/09/16 23:45 Room Air 08/09/16 22:55 36.7 65 18 148/81 96 Room Air 08/09/16 16:00 Room Air 08/09/16 15:21 36.4 61 18 112/73 98 Room Air Physical Exam General Appearance: WD/WN, no apparent distress Neck: supple, no JVD Respiratory/Chest: chest non-tender, lungs clear Cardiovascular: regular rate, rhythm, no murmur Abdomen: normal bowel sounds, non tender, soft Extremities: no pedal edema, no calf tenderness Laboratory Results Last 24 Hours Test 08/09/16 16:47 08/09/16 20:33 08/10/16 05:39 08/10/16 08:20 Bedside Glucose 118 mg/dl 138 mg/dl 99 mg/dl White Blood Count 8.00 K/uL Red Blood Count 4.72 M/uL Hemoglobin 13.5 g/dL Hematocrit 41.4 % Mean Corpuscular Volume 87.7 fL Mean Corpuscular Hemoglobin 28.6 pg Mean Corpuscular Hemoglobin Concent 32.6 g/dl Platelet Count 226 K/uL Mean Platelet Volume 9.7 fL Neutrophils (%) (Auto) 63.7 % Lymphocytes (%) (Auto) 24.8 % Monocytes (%) (Auto) 6.9 % Eosinophils (%) (Auto) 3.8 % Basophils (%) (Auto) 0.3 % Neutrophils # (Auto) 5.11 K/uL Lymphocytes # (Auto) 1.98 K/uL Monocytes # (Auto) 0.55 K/uL Eosinophils # (Auto) 0.30 K/uL Basophils # (Auto) 0.02 K/uL RDW Standard Deviation 42.7 fL RDW Coefficient of Variation 13.2 % Immature Granulocyte % (Auto) 0.5 % Immature Granulocyte # (Auto) 0.04 K/uL Sodium Level 136 mmol/L Potassium Level 3.6 mmol/L Chloride Level 97 mmol/L Carbon Dioxide Level 33 mmol/L Anion Gap 6.0 mmol/L Blood Urea Nitrogen 17 mg/dl Creatinine 1.40 mg/dl Est Creatinine Clear Calc Drug Dose 71.7 ml/min Estimated GFR () 62.0 Estimated GFR (Non- 53.5 BUN/Creatinine Ratio 12.2 Random Glucose 115 mg/dl Calcium Level 8.8 mg/dl Test 08/10/16 12:04 Bedside Glucose 142 mg/dl Assessment and Plan 61 M with chronic robert cath presents with a urinary catheter associated uti poa , with fatigue labs reviewed 08/10 wbc stable, glucose is acceptable, Providencia rettgeri htn is stable continues on metoprolol and lisinopril ertapenem is chosen by sensitivities for robert cath associated uti poa will see what duration and if better to try to complete inpt or if insurer will pay for outpt treatment, ask ID to comment will change robert on completion of abtx parkisons, seems stable continyue sinemet and amatadine diabetes good control on lantus and ssi Documented By: Carorll Barnhart
[2016-08-10 15:06] VITALS: BP 99/65; PULSE 63; TEMP 36.5; O2SAT 98
[2016-08-10] MEDS: MICONAZOLE NITRATE POWDER 43 GM EXT SCH ×2 (15:30→21:24)
[2016-08-10 21:28] VITALS: BP 114/74
[2016-08-10] MEDS: SIMVASTATIN 20 MG TAB PO SCH (21:28)
[2016-08-10 22:52] VITALS: BP 130/75; PULSE 62; TEMP 36.4; O2SAT 99
[2016-08-11] MEDS: ERTAPENEM IV 1 GM in SODIUM CHLOR 0.9% AD-VAN 50ML 50 ML IV SCH (02:52)
[2016-08-11] MEDS: OXYCODONE/ACETAMINOPHEN 5-325 TAB PO PRN (05:52)
[2016-08-11 06:52] VITALS: BP 149/86; PULSE 54; TEMP 36.4; O2SAT 100
--- NOTE | 2016-08-11 08:42 | Progress Note ---
Subjective Date of Service: Aug 11, 2016. Subjective Pt evaluation today including: conversation w/ patient, chart review, lab review Voiding: robert catheter in place (patent, draining, clear yellow urine) 61 yo male with Parkinson's and chronic UR. Admitted with UTI. Remains inpatient for IV abx. He c/o bilateral lower back pain radiating to his BLEs as well as SOB which he both reports as chronic in nature. He reports he has not followed up as an outpatient for UDS as he is concerned he may have prostate cancer. Last PSA I can find was 1.82 in 2010. He also reports he is concerned about leaking urine between cathing if he were to initiate CIC. However, he does want to f/u for UDS for further evaluation of his bladder function. Problem List Medical Problems: (1) Elevated lactic acid level Status: Acute (2) Lower abdominal pain Status: Acute (3) Neurogenic bladder Status: Acute (4) Pyelonephritis Status: Acute (5) Sepsis Status: Acute (6) Spinal stenosis Status: Acute (7) Urinary tract infection Status: Acute (8) Urinary tract infection Status: Acute (9) UTI (urinary tract infection) Status: Acute Review of Systems Constitutional: No chills, No fever Respiratory: + see HPI, + shortness of breath Cardiac: No chest pain Abdomen: No nausea, No pain, No vomiting Musculoskeletal: + see HPI Male : No hematuria Heme: No abnormal bleeding/bruising Objective Vital Signs Date Time Temp Pulse Resp B/P Pulse Ox O2 Delivery O2 Flow Rate FiO2 08/11/16 07:53 Room Air 08/11/16 06:52 36.4 54 18 149/86 100 Room Air 08/10/16 23:30 Room Air 08/10/16 22:52 36.4 62 16 130/75 99 Room Air 08/10/16 21:28 114/74 08/10/16 16:00 Room Air 08/10/16 15:06 36.5 63 16 99/65 98 Room Air Physical Exam General Appearance: no apparent distress Eyes: normal inspection ENT: hearing grossly normal Neck: no JVD Respiratory/Chest: no respiratory distress, no accessory muscle use Cardiovascular: no JVD Extremities: normal inspection Neurologic/Psychiatric: alert, normal mood/affect, oriented x 3 Skin: normal color Laboratory Results Last 24 Hours Test 08/10/16 12:04 08/10/16 16:36 08/10/16 20:56 08/11/16 08:03 Bedside Glucose 142 mg/dl 143 mg/dl 141 mg/dl 123 mg/dl Assessment and Plan A/P: Urinary retention, UTI AFVSS. Continue IV abx per ID recommendations. Will leave robert catheter in place for now and plan for outpatient UDS for further evaluation of bladder function. ? candidate for TURP as an outpatient. May have worsening of incontinence secondary to Parkinson's if TURP performed. Would also consider initiating the pt on CIC q6hrs as an outpatient if able. Will get a PSA as the last one noted was in 2010. The pt is concerned about the possibility of prostate cancer. I did explain to him that WEINSTEIN and UR are separate issues from prostate cancer. No further management at this time. Recall PRN issues. Thanks for allowing us to participate in this pt's care. Will arrange for outpatient f/u.
[2016-08-11] MEDS: PREGABALIN 150 MG CAP PO SCH ×2 (08:58→21:01)
[2016-08-11] MEDS: ASCORBIC ACID 500 MG TAB PO SCH (08:59)
[2016-08-11] MEDS: CARBIDOPA/LEVODOPA 50/200MG EXT REL TAB PO SCH ×2 (08:59→21:03)
[2016-08-11] MEDS: AMANTADINE HCL 100 MG CAP PO SCH ×2 (08:59→21:03)
[2016-08-11] MEDS: METOPROLOL TARTRATE 25 MG TAB PO SCH ×2 (08:59→21:03)
[2016-08-11] MEDS: ALLOPURINOL 100 MG TAB PO SCH (08:59)
[2016-08-11] MEDS: FERROUS SULFATE 325 MG TAB PO SCH (08:59)
[2016-08-11] MEDS: ENOXAPARIN 150 MG/1ML SYR SQ SCH ×2 (08:59→21:01)
[2016-08-11] MEDS: LISINOPRIL 40 MG TAB PO SCH ×2 (08:59→21:04)
[2016-08-11] MEDS: SODIUM CHLORIDE 0.9% 1000ML 1,000 ML IV SCH (09:00)
[2016-08-11] MEDS: PANTOprazole SOD 40 MG TAB PO SCH (09:00)
[2016-08-11] MEDS: MICONAZOLE NITRATE POWDER 43 GM EXT SCH ×3 (09:00→21:01)
[2016-08-11] MEDS: FUROSEMIDE 80 MG TAB PO SCH ×2 (09:00→17:38)
[2016-08-11] MEDS: INSULIN ASPART 100 UNITS/ML 3 ML PEN SC SCH ×4 (09:07→21:00)
[2016-08-11] MEDS: INSULIN GLARGINE SOLOSTAR 100 UNITS/ML 3 ML PEN SC SCH ×2 (09:08→21:06)
--- NOTE | 2016-08-11 12:37 | Infectious Disease Progress Nt ---
Progress Note Date of Service Aug 11, 2016. Subjective Pt evaluation today including: conversation w/ patient, physical exam, chart review, lab review, review of studies, review of inpatient medication list WBC count yesterday 8.00. Creatinine is stable and was 1.40. Urine culture growing Providencia resistant to quinolones. Patient continues on IV Ertapenem and is feeling slightly improved. He states that his abdominal/lower back pain is approximately a 3/10 today. It continues to improve but has not completely subsided yet. Reviewed medicine and urology recommendations. Patient with have Urodynamics Study as outpatient to further evaluate possibility of taking Wills catheter out. All Other Systems: Reviewed and Negative Medications Current Inpatient Medications Medications (Trade) Dose Ordered Sig/Apryl Route Start Time Stop Time Status Last Admin Dose Admin Ioversol (Optiray 320) 111 ml UD PRN IV 08/07/16 22:00 08/11/16 21:59 Acetaminophen (Tylenol Tab) 650 mg Q4H PRN PO 08/08/16 02:00 09/07/16 01:59 Al Hydrox/Mg Hydrox/Simethicone (Maalox Max Susp) 15 ml Q4H PRN PO 08/08/16 02:00 09/07/16 01:59 Magnesium Hydroxide (Milk Of Magnesia Susp) 30 ml Q6H PRN PO 08/08/16 02:00 09/07/16 01:59 Polyethylene (Miralax Powder Packet) 17 gm DAILY PRN PO 08/08/16 02:00 09/07/16 01:59 08/09/16 09:16 17 GM Ondansetron HCl 4 mg 4 mg Q6H PRN IV 08/08/16 02:00 09/07/16 01:59 08/09/16 20:27 4 MG Sodium Chloride (Nss 1000ml) 1,000 ml @ 100 mls/hr Q10H IV 08/08/16 03:00 09/07/16 02:59 08/11/16 09:00 100 MLS/HR Morphine Sulfate (MoRPHine SULFATE INJ) 4 mg Q1H PRN IV 08/08/16 02:00 08/22/16 01:59 08/09/16 12:46 4 MG Allopurinol (Zyloprim Tab) 100 mg DAILY PO 08/08/16 09:00 3/26/17 08:59 08/11/16 08:59 100 MG Amantadine HCl (Symmetrel Cap) 100 mg BID PO 08/08/16 09:00 09/07/16 08:59 08/11/16 08:59 100 MG Ascorbic Acid (Vitamin C Tab) 500 mg QAM PO 08/08/16 09:00 09/07/16 08:59 08/11/16 08:59 500 MG Carbidopa/Levodopa (Sinemet Cr 50/ 200MG Tab) 1 tab BID PO 08/08/16 09:00 09/07/16 08:59 08/11/16 08:59 1 TAB Enoxaparin Sodium (Lovenox Inj) 150 mg BID SQ 08/08/16 09:00 09/07/16 08:59 08/11/16 08:59 150 MG Furosemide (Lasix Tab) 80 mg BID17 PO 08/08/16 09:00 09/07/16 08:59 08/11/16 09:00 80 MG Oxycodone/ Acetaminophen (Percocet 5-325mg Tab) 1 tab Q4 PRN PO 08/08/16 02:00 08/22/16 01:59 08/11/16 05:52 1 TAB Pregabalin (Lyrica Cap) 300 mg BID PO 08/08/16 09:00 09/07/16 08:59 08/11/16 08:58 300 MG Simvastatin (Zocor Tab) 20 mg PM PO 08/08/16 21:00 09/07/16 20:59 08/10/16 21:28 20 MG Ferrous Sulfate (Feosol Tab) 325 mg DAILY PO 08/08/16 09:00 09/07/16 08:59 08/11/16 08:59 325 MG Pantoprazole Sodium 40 mg 40 mg DAILY PO 08/08/16 09:00 09/07/16 08:59 08/11/16 09:00 40 MG Ertapenem/Sodium Chloride (Invanz Iv/Nss Ad-Van 50ml) 50 ml @ 120 mls/hr Q24H IV 08/09/16 02:00 08/17/16 02:24 08/11/16 02:52 120 MLS/HR Insulin Aspart (novoLOG ASPART) SLIDING SCALE G... ACHS SC 08/08/16 08:00 09/07/16 07:59 08/11/16 09:07 5 UNITS Glucose (Glucose 40% Gel) 15-30 GRAMS 15 GRAMS... UD PRN PO 08/08/16 03:45 09/07/16 03:44 Glucose (Glucose Chew Tab) 4-8 Tablets 4 Tabl... UD PRN PO 08/08/16 03:45 09/07/16 03:44 Dextrose (Dextrose 50% 50ML Syringe) 25-50ML OF 50% DW IV FOR... UD PRN IV 08/08/16 03:45 09/07/16 03:44 Glucagon (Glucagon Inj) 1 mg UD PRN SQ 08/08/16 03:45 09/07/16 03:44 Lisinopril (Zestril Tab) 40 mg BID PO 08/08/16 21:00 09/07/16 20:59 08/11/16 08:59 40 MG Metoprolol Tartrate (Lopressor Tab) 25 mg BID PO 08/08/16 21:00 09/07/16 20:59 08/11/16 08:59 25 MG Insulin Glargine (Lantus Solostar Pen) 30 unit BID SC 08/08/16 09:00 09/07/16 08:59 08/11/16 09:08 30 UNIT Miconazole Nitrate (Desenex Powder) 1 appln TID EXT 08/10/16 14:00 09/09/16 13:59 08/11/16 09:00 1 APPLN Objective Vital Signs Date Time Temp Pulse Resp B/P Pulse Ox O2 Delivery O2 Flow Rate FiO2 08/11/16 07:53 Room Air 08/11/16 06:52 36.4 54 18 149/86 100 Room Air 08/10/16 23:30 Room Air 08/10/16 22:52 36.4 62 16 130/75 99 Room Air 08/10/16 21:28 114/74 08/10/16 16:00 Room Air 08/10/16 15:06 36.5 63 16 99/65 98 Room Air Physical Exam General Appearance: WD/WN, no apparent distress Eyes: normal inspection, sclerae normal ENT: hearing grossly normal Neck: supple, trachea midline Respiratory/Chest: no respiratory distress, no accessory muscle use Cardiovascular: regular rate, rhythm Extremities: normal inspection Neurologic/Psychiatric: alert, oriented x 3 Skin: normal color, warm/dry, no rash Laboratory Results RUN DATE: 08/10/16 [facility] LAB PAGE 1 RUN TIME: 747 Specimen Inquiry PATIENT: ZAHEERGARY Ondina LOC: W U # : [id number] AGE/SX: 61/M ROOM: [facility] REG : 08/08/[address]: Carroll Barnhart M : 1955 BED: 2 DIS : STATUS: ADM IN TLOC: SPEC #: [id number] TRICIA: 08/07/16 STATUS: COMP REQ #: [id number] RECD: 08/08/[address]: Rodrigo Recio M.D. SOURCE: URINE CATH ENTR: 08/07/[address]: Reza Ocasio Jr,D.O. SPDESC: ORDERED: CULTURE UR CATH COMMENTS: Has Specimen Been Obtained/Collected? Y Procedure Result Verified Site URINE CULTURE Final 08/10/16-0748 Organism 1 PROVIDENCIA RETTGERI COLONY COUNT >100,000 CFU/ml SENS SENSITIVITY TO FOLLOW +MIX PLUS LOW COUNTS OTHER MIXED THERESE 1. PROVIDENCIA RETTGERI Target Route Dose RX AB Cost M.I.C. IQ ------ ----- ------ -- ------ -------- - ------ TRIMET/SULFA S <=2/38 AMPICILLIN/SUL S <=8/4 CEFOTAXIME S <=2 CEFTRIAXONE S <=1 CEFEPIME S <=4 CEFUROXIME S <=4 IMIPENEM S <=1 GENTAMICIN S <=4 TOBRAMYCIN S <=4 AMIKACIN S <=16 CIPROFLOXACIN R >2 LEVOFLOXACIN R >4 ERTAPENEM S <=1 PIP/TAZO S <=16 S = SENSITIVE I = INTERMEDIATE R = RESISTANT Last 24 Hours Test 08/10/16 16:36 08/10/16 20:56 08/11/16 08:03 08/11/16 10:30 Bedside Glucose 143 mg/dl 141 mg/dl 123 mg/dl Prostate Specific Antigen 2.690 ng/ml Test 08/11/16 11:47 Bedside Glucose 142 mg/dl Assessment and Plan Patient with left-sided abdominal pain, left sided nephrolithiasis, indwelling Wills catheter, and cystitis with culture growing Providencia. He is currently on IV Ertapenem. Due to patient allergies, feel that this continues to be the most reasonable antibiotic option. Recommend completing 10 days of therapy if able, but unsure of coverage as an outpatient. If able to be covered as an outpatient, consider midline versus PICC line. We will follow. PROVIDER ADDENDUM: Patient reviewed with Ms. Gardner. Agree with above assessment.
--- NOTE | 2016-08-11 15:08 | Progress Note ---
Subjective Date of Service: Aug 11, 2016. Subjective Pt evaluation today including: conversation w/ patient, physical exam, chart review, lab review, review of studies, review of inpatient medication list Feeling better, less suprapubic discomfort. No chest pain, no sob. Does not feel thirsty and tolerating po intake well. Willing to try CIC, will think about it overnight. Problem List Medical Problems: (1) Elevated lactic acid level Status: Acute (2) Lower abdominal pain Status: Acute (3) Neurogenic bladder Status: Acute (4) Pyelonephritis Status: Acute (5) Sepsis Status: Acute (6) Spinal stenosis Status: Acute (7) Urinary tract infection Status: Acute (8) Urinary tract infection Status: Acute (9) UTI (urinary tract infection) Status: Acute Review of Systems All Other Systems: Reviewed and Negative Medications Acetaminophen (Tylenol Tab) 650 mg Q4H PRN PO; Start 08/08/16 at 02:00; Stop 09/07/16 at 01:59 Al Hydrox/Mg Hydrox/Simethicone (Maalox Max Susp) 15 ml Q4H PRN PO; Start 08/08 at 02:00; Stop 09/07/16 at 01:59 Allopurinol (Zyloprim Tab) 100 mg DAILY PO Last administered on 08/11/16 08:59 ; Admin Dose 100 MG; Start 08/08/16 at 09:00; Stop 09/07/16 at 08:59 Amantadine HCl (Symmetrel Cap) 100 mg BID PO Last administered on 08/11/16 08: 59; Admin Dose 100 MG; Start 08/08/16 at 09:00; Stop 09/07/16 at 08:59 Ascorbic Acid (Vitamin C Tab) 500 mg QAM PO Last administered on 08/11/16 08:59 ; Admin Dose 500 MG; Start 08/08/16 at 09:00; Stop 09/07/16 at 08:59 Carbidopa/Levodopa (Sinemet Cr 50/ 200MG Tab) 1 tab BID PO Last administered on 08/11/16 08:59; Admin Dose 1 TAB; Start 08/08/16 at 09:00; Stop 09/07/16 at 08: 59 Dextrose (Dextrose 50% 50ML Syringe) 25-50ML OF 50% DW IV FOR... UD PRN IV; Start 08/08/16 at 03:45; Stop 09/07/16 at 03:44 Enoxaparin Sodium (Lovenox Inj) 150 mg BID SQ Last administered on 08/11/16 08: 59; Admin Dose 150 MG; Start 08/08/16 at 09:00; Stop 09/07/16 at 08:59 Ertapenem/Sodium Chloride (Invanz Iv/Nss Ad-Van 50ml) 50 ml @ 120 mls/hr Q24H IV Last administered on 08/11/16 02:52; Admin Dose 120 MLS/HR; Start 08/09/16 at 02:00; Stop 08/17/16 at 02:24 Ferrous Sulfate (Feosol Tab) 325 mg DAILY PO Last administered on 08/11/16 08: 59; Admin Dose 325 MG; Start 08/08/16 at 09:00; Stop 09/07/16 at 08:59 Furosemide (Lasix Tab) 80 mg BID17 PO Last administered on 08/11/16 09:00; Admin Dose 80 MG; Start 08/08/16 at 09:00; Stop 09/07/16 at 08:59 Glucagon (Glucagon Inj) 1 mg UD PRN SQ; Start 08/08/16 at 03:45; Stop 09/07/16 at 03:44 Glucose (Glucose 40% Gel) 15-30 GRAMS 15 GRAMS... UD PRN PO; Start 08/08/16 at 03:45; Stop 09/07/16 at 03:44 Glucose (Glucose Chew Tab) 4-8 Tablets 4 Tabl... UD PRN PO; Start 08/08/16 at 03:45; Stop 09/07/16 at 03:44 Insulin Aspart (novoLOG ASPART) SLIDING SCALE G... ACHS SC Last administered on 08/11/16 13:15; Admin Dose 3 UNITS; Start 08/08/16 at 08:00; Stop 09/07/16 at 07:59 Insulin Glargine (Lantus Solostar Pen) 30 unit BID SC Last administered on 09:08; Admin Dose 30 UNIT; Start 08/08/16 at 09:00; Stop 09/07/16 at 08:59 Ioversol (Optiray 320) 111 ml UD PRN IV; Start 08/07/16 at 22:00; Stop at 21:59 Lisinopril (Zestril Tab) 40 mg BID PO Last administered on 08/11/16 08:59; Admin Dose 40 MG; Start 08/08/16 at 21:00; Stop 09/07/16 at 20:59 Magnesium Hydroxide (Milk Of Magnesia Susp) 30 ml Q6H PRN PO; Start 08/08/16 at 02:00; Stop 09/07/16 at 01:59 Metoprolol Tartrate (Lopressor Tab) 25 mg BID PO Last administered on 08/11/16 08:59; Admin Dose 25 MG; Start 08/08/16 at 21:00; Stop 09/07/16 at 20:59 Miconazole Nitrate (Desenex Powder) 1 appln TID EXT Last administered on 13:15; Admin Dose 1 APPLN; Start 08/10/16 at 14:00; Stop 09/09/16 at 13:59 Morphine Sulfate (MoRPHine SULFATE INJ) 4 mg Q1H PRN IV Last administered on 12:46; Admin Dose 4 MG; Start 08/08/16 at 02:00; Stop 08/22/16 at 01:59 Ondansetron HCl 4 mg 4 mg Q6H PRN IV Last administered on 08/09/16 20:27; Admin Dose 4 MG; Start 08/08/16 at 02:00; Stop 09/07/16 at 01:59 Oxycodone/ Acetaminophen (Percocet 5-325mg Tab) 1 tab Q4 PRN PO Last administered on 08/11/16 05:52; Admin Dose 1 TAB; Start 08/08/16 at 02:00; Stop 08/22/16 at 01:59 Pantoprazole Sodium 40 mg 40 mg DAILY PO Last administered on 08/11/16 09:00; Admin Dose 40 MG; Start 08/08/16 at 09:00; Stop 09/07/16 at 08:59 Polyethylene (Miralax Powder Packet) 17 gm DAILY PRN PO Last administered on 09:16; Admin Dose 17 GM; Start 08/08/16 at 02:00; Stop 09/07/16 at 01:59 Pregabalin (Lyrica Cap) 300 mg BID PO Last administered on 08/11/16 08:58; Admin Dose 300 MG; Start 08/08/16 at 09:00; Stop 09/07/16 at 08:59 Simvastatin (Zocor Tab) 20 mg PM PO Last administered on 08/10/16 21:28; Admin Dose 20 MG; Start 08/08/16 at 21:00; Stop 09/07/16 at 20:59 Sodium Chloride (Nss 1000ml) 1,000 ml @ 100 mls/hr Q10H IV Last administered on 08/11/16 09:00; Admin Dose 100 MLS/HR; Start 08/08/16 at 03:00; Stop at 02:59 Objective Vital Signs Date Time Temp Pulse Resp B/P Pulse Ox O2 Delivery O2 Flow Rate FiO2 08/11/16 07:53 Room Air 08/11/16 06:52 36.4 54 18 149/86 100 Room Air 08/10/16 23:30 Room Air 08/10/16 22:52 36.4 62 16 130/75 99 Room Air 08/10/16 21:28 114/74 08/10/16 16:00 Room Air 08/10/16 15:06 36.5 63 16 99/65 98 Room Air Physical Exam Comments: nad, aox3, coherent with fluent speech eomi, perrl, anicteric s1 s2 rrr, no murmurs appreciated ctab no w/r/r abd soft, nd +suprapubic minimal tenderness, +BS no LE edema, compression stockings on cn 2-12 grossly intact without facial drooping, flat affect noted Laboratory Results Last 24 Hours Test 08/10/16 16:36 08/10/16 20:56 08/11/16 08:03 08/11/16 10:30 Bedside Glucose 143 mg/dl 141 mg/dl 123 mg/dl Prostate Specific Antigen 2.690 ng/ml Test 08/11/16 11:47 Bedside Glucose 142 mg/dl Assessment and Plan 61 yo M h/o chronic urinary retention with chronic indwelling catheter x1 yr, recurrent utis, Parkinson's admitted with cystitis 1. UTI - cx and sens back - will require Ertapenem outpatient - referred to for outpatient infusion - will need PICC placed once approved 2. CHronic urinary retention - likely from Parkinson's neuropathy/autonomic dysregulation - willing to try CIC - will require teaching if started on CIC - urology on board 3. Parkinson's - cont sinemet and amantadine 4. HTN - bp acceptable - cont lisinopril, metoprolol\ 5. HFpEF - cont bblocker, acei, and lasix - stable/compensated - stop IVF, tolerating po 6. DM - acceptable glucose readings dvt ppx
[2016-08-11 15:23] VITALS: BP 115/75; PULSE 69; TEMP 36.5; O2SAT 99
[2016-08-11] MEDS: SIMVASTATIN 20 MG TAB PO SCH (21:03)
[2016-08-11 22:58] VITALS: BP 128/85; PULSE 64; TEMP 36.2; O2SAT 96
[2016-08-12] MEDS: ERTAPENEM IV 1 GM in SODIUM CHLOR 0.9% AD-VAN 50ML 50 ML IV SCH (02:20)
[2016-08-12 06:56] LABS: BASO % 0.3 %; BASO ABS # 0.02 K/uL (0-0.2); COMPLETE YES; EOS % 3.7 %; HEMATOCRIT 41.7 % (42-52); IG% 0.5 %; LYMPH % 29.5 %; LYMPH ABS # 1.77 K/uL (1.2-3.4); MEAN CELL VOLUME 85.3 fL (80-100); MEAN CORPUSCULAR HEMOGLOBIN 28.4 pg (25-34); MEAN CORPUSCULAR HGB CONC 33.3 g/dl (32-36); MEAN PLATELET VOLUME 9.4 fL (7.4-10.4); MONO % 8.2 %; NEUT % 57.8 %; PLATELET COUNT 194 K/uL (130-400); RED BLOOD COUNT 4.89 M/uL (4.7-6.1); WHITE BLOOD COUNT 5.99 K/uL (4.8-10.8)
[2016-08-12 07:26] LABS: CALCIUM 8.9 mg/dl (8.5-10.1); CREATININE 1.2 mg/dl (0.60-1.40); MAGNESIUM 2.2 mg/dl (1.8-2.4); POTASSIUM 3.7 mmol/L (3.5-5.1)
[2016-08-12 07:36] VITALS: BP 138/85; PULSE 60; TEMP 36.8; O2SAT 98
[2016-08-12] MEDS: FUROSEMIDE 80 MG TAB PO SCH (09:27)
[2016-08-12] MEDS: ALLOPURINOL 100 MG TAB PO SCH (09:28)
[2016-08-12] MEDS: ASCORBIC ACID 500 MG TAB PO SCH (09:28)
[2016-08-12] MEDS: PREGABALIN 150 MG CAP PO SCH (09:28)
[2016-08-12] MEDS: AMANTADINE HCL 100 MG CAP PO SCH (09:28)
[2016-08-12] MEDS: FERROUS SULFATE 325 MG TAB PO SCH (09:28)
[2016-08-12] MEDS: MICONAZOLE NITRATE POWDER 43 GM EXT SCH ×2 (09:28→13:10)
[2016-08-12] MEDS: LISINOPRIL 40 MG TAB PO SCH (09:28)
[2016-08-12] MEDS: PANTOprazole SOD 40 MG TAB PO SCH (09:28)
[2016-08-12] MEDS: CARBIDOPA/LEVODOPA 50/200MG EXT REL TAB PO SCH (09:28)
[2016-08-12] MEDS: METOPROLOL TARTRATE 25 MG TAB PO SCH (09:28)
[2016-08-12] MEDS: ENOXAPARIN 150 MG/1ML SYR SQ SCH (09:29)
[2016-08-12] MEDS: INSULIN ASPART 100 UNITS/ML 3 ML PEN SC SCH ×2 (09:32→13:10)
[2016-08-12] MEDS: INSULIN GLARGINE SOLOSTAR 100 UNITS/ML 3 ML PEN SC SCH (09:33)
--- NOTE | 2016-08-12 10:35 | Progress Note ---
Subjective Date of Service: Aug 12, 2016. Subjective Pt evaluation today including: conversation w/ patient, physical exam, review of studies, review of inpatient medication list Patient feeling fine. No fevers overnight. No chest pain, no sob. No abd pain. no n/v. Problem List Medical Problems: (1) Elevated lactic acid level Status: Acute (2) Lower abdominal pain Status: Acute (3) Neurogenic bladder Status: Acute (4) Pyelonephritis Status: Acute (5) Sepsis Status: Acute (6) Spinal stenosis Status: Acute (7) Urinary tract infection Status: Acute (8) Urinary tract infection Status: Acute (9) UTI (urinary tract infection) Status: Acute Review of Systems All Other Systems: Reviewed and Negative Medications Inpatient medications reviewed Objective Vital Signs Date Time Temp Pulse Resp B/P Pulse Ox O2 Delivery O2 Flow Rate FiO2 08/12/16 08:06 Room Air 08/12/16 07:36 36.8 60 18 138/85 98 Room Air 08/12/16 00:00 Room Air 08/11/16 22:58 36.2 64 18 128/85 96 Room Air 08/11/16 15:55 Room Air 08/11/16 15:23 36.5 69 18 115/75 99 Room Air Physical Exam Comments: nad eomi aox3 flat affect s1 s2 rrr, no m/r/g ctab no w/r/r abd soft,nt/nd +BS no LE edema Laboratory Results Last 24 Hours Test 08/11/16 11:47 08/11/16 16:49 08/11/16 20:50 08/12/16 06:42 Bedside Glucose 142 mg/dl 109 mg/dl 173 mg/dl White Blood Count 5.99 K/uL Red Blood Count 4.89 M/uL Hemoglobin 13.9 g/dL Hematocrit 41.7 % Mean Corpuscular Volume 85.3 fL Mean Corpuscular Hemoglobin 28.4 pg Mean Corpuscular Hemoglobin Concent 33.3 g/dl Platelet Count 194 K/uL Mean Platelet Volume 9.4 fL Neutrophils (%) (Auto) 57.8 % Lymphocytes (%) (Auto) 29.5 % Monocytes (%) (Auto) 8.2 % Eosinophils (%) (Auto) 3.7 % Basophils (%) (Auto) 0.3 % Neutrophils # (Auto) 3.46 K/uL Lymphocytes # (Auto) 1.77 K/uL Monocytes # (Auto) 0.49 K/uL Eosinophils # (Auto) 0.22 K/uL Basophils # (Auto) 0.02 K/uL RDW Standard Deviation 40.9 fL RDW Coefficient of Variation 13.2 % Immature Granulocyte % (Auto) 0.5 % Immature Granulocyte # (Auto) 0.03 K/uL Sodium Level 137 mmol/L Potassium Level 3.7 mmol/L Chloride Level 100 mmol/L Carbon Dioxide Level 29 mmol/L Anion Gap 8.0 mmol/L Blood Urea Nitrogen 19 mg/dl Creatinine 1.20 mg/dl Est Creatinine Clear Calc Drug Dose 83.7 ml/min Estimated GFR () 74.7 Estimated GFR (Non- 64.4 BUN/Creatinine Ratio 16.0 Random Glucose 113 mg/dl Calcium Level 8.9 mg/dl Magnesium Level 2.2 mg/dl Test 08/12/16 07:39 Bedside Glucose 106 mg/dl Assessment and Plan 61 yo M h/o chronic urinary retention with chronic indwelling catheter x1 yr, recurrent utis, Parkinson's admitted with cystitis 1. UTI - cx and sens back - will require Ertapenem outpatient until 08/18/16 for total of 10 days - referred to for outpatient infusion - will need PICC today, consent signed 2. CHronic urinary retention - likely from Parkinson's neuropathy/autonomic dysregulation - willing to try CIC, will be started outpatient - will need to f/u outpatient with urology 3. Parkinson's - cont sinemet and amantadine 4. HTN - bp acceptable - cont lisinopril, metoprolol\ 5. HFpEF - cont bblocker, acei, and lasix - stable/compensated 6. DM - acceptable glucose readings dvt ppx
[2016-08-12] MEDS ORDERED: ERTA1INJ IV (10:39)
--- NOTE | 2016-08-12 10:41 | Discharge Instructions ---
Discharge Instructions Admission Reason for Admission: Catheter-Associated Urinary Tract Infection Discharge Discharge Diagnosis / Problem: stable for home with home services Discharge Goals Goal(s): Decrease discomfort, Improve disease control Activity Recommendations Activity Limitations: resume your previous activity . Current Hospital Diet Patient's current hospital diet: Diabetes Type 2 Diet Discharge Diet Recommended Diet: AHA Diet (Heart Healthy), Low Sodium Diet (2gm Na), Diabetes Type 2 Diet Pending Studies Studies pending at discharge: no Medical Emergencies . Who to Call and When: Medical Emergencies: If at any time you feel your situation is an emergency, please call 911 immediately. . Non-Emergent Contact Non-Emergency issues call your: Primary Care Provider, Urologist . . "Provider Documentation" section prepared by Mary Simmons. VTE Core Measure Inpt VTE Proph given/why not?: Enoxaparin (Lovenox)SQ
--- NOTE | 2016-08-12 10:42 | Discharge Summary ---
Discharge Summary Date of Service Aug 12, 2016. 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 Medication Reconciliation New Medications: Ertapenem Sodium (Invanz) 1 Gm Inj 1 GM IV DAILY for 6 Days, VIAL Continued Medications: Allopurinol (Allopurinol) 100 Mg Tab 100 MG PO DAILY Amantadine HCl (Amantadine HCl) 100 Mg Cap 100 MG PO BID Ascorbic Acid (Vitamin C) 500 Mg Tab 1 TABS PO QAM Carbidopa/Levodopa (Sinemet Cr 50MG/200MG) Tabcr 1 TAB PO BID Enoxaparin (Lovenox) 150 Mg/1 Ml Inj 150 MG SQ BID Ferrous Sulfate (Iron) 325 Mg Tab 1 TAB PO DAILY Furosemide (Furosemide) 80 Mg Tab 80 MG PO BID, #60 Insulin Aspart (Novolog Flexpen) 100 Units/Ml Inj 10 UNITS SC AC, #1 BOX 1 Refill Insulin Glargine (Lantus) 100 Unit/Ml Inj 45 UNITS SC BID, VIAL Lisinopril (Lisinopril) 40 Mg Tab 40 MG PO BID, #30 Metoprolol Tartrate (Lopressor) 25 Mg Tab 25 MG PO BID Nystatin (Nystop) 45 Appln/15 Gm Powd 1 APPLN EXT TID for 10 Days, #1 1 Refill apply in between skin folds on lower abdomen for 10 days Omeprazole (Prilosec) 40 Mg Cap 40 MG PO DAILY Oxycodone/Acetaminophen 5MG/325MG (Oxycodone/Acetaminophen 5MG/325MG) 1 Tab Tab 1-2 TABS PO Q4 for Pain Pregabalin (Lyrica) 300 Mg Cap 300 MG PO BID Simvastatin (Simvastatin) 20 Mg Tab 20 MG PO DAILY Discharge Exam URINE CULTURE Final 08/10/16 Organism 1 [facility] COLONY COUNT >100,000 CFU/ml SENS SENSITIVITY TO FOLLOW +MIX PLUS LOW COUNTS OTHER MIXED THERESE 1. [facility] Target Route Dose RX AB Cost M.I.C. IQ ------ ----- ------ -- ------ -------- - ------ TRIMET/SULFA S <=2/38 AMPICILLIN/SUL S <=8/4 CEFOTAXIME S <=2 CEFTRIAXONE S <=1 CEFEPIME S <=4 CEFUROXIME S <=4 IMIPENEM S <=1 GENTAMICIN S <=4 TOBRAMYCIN S <=4 AMIKACIN S <=16 CIPROFLOXACIN R >2 LEVOFLOXACIN R >4 ERTAPENEM S <=1 PIP/TAZO S <=16 S = SENSITIVE I = INTERMEDIATE R = RESISTANT Hospital Course 61 yo M h/o chronic urinary retention with chronic indwelling catheter x1 yr, recurrent utis, Parkinson's admitted with cystitis See progress note on day of discharge. 1. UTI - cx and sens back - will require Ertapenem outpatient until 08/18/16 for total of 10 days - referred to for outpatient infusion - discharge with PICC and arrange 2. CHronic urinary retention - likely from Parkinson's neuropathy/autonomic dysregulation - willing to try CIC, will be started outpatient - to follow-up with urology outpatient 3. Parkinson's - cont sinemet and amantadine 4. HTN - bp acceptable - cont lisinopril, metoprolol\ 5. HFpEF - cont bblocker, acei, and lasix - stable/compensated 6. DM - acceptable glucose readings Total Time Spent: Greater than 30 minutes This includes examination of the patient, discharge planning, medication reconciliation, and communication with other providers. Discharge Instructions Please refer to the electronic Patient Visit Report (Discharge Instructions) for additional information.
[2016-08-12 13:17] VITALS: BP 138/85; PULSE 60; TEMP 36.8; O2SAT 98
[2016-08-12] MEDS ORDERED: FLUO40CA8 PO (19:10)
[2016-08-12] MEDS ORDERED: CLC6 PO (19:10)
[2016-08-12] MEDS ORDERED: DUTA0.5C PO (19:10)
[2016-08-12] MEDS ORDERED: ZOLP10TA6 PO (19:10)
[2016-08-12] MEDS ORDERED: SPIR25TA PO (19:10)
[2016-08-12] MEDS ORDERED: LSN40 PO (19:10)
[2016-08-12] MEDS ORDERED: FLM4 PO (19:10)
[2016-11-14] MEDS ORDERED: ASPEC81 PO (10:42)
[2016-11-14] MEDS ORDERED: LVNIS150 SQ (10:42)
[2016-11-14] MEDS ORDERED: IMDSR30 PO (10:42)
[2016-11-14] MEDS ORDERED: LPR25 PO (10:42)
[2016-11-14] MEDS ORDERED: CARV3.122 PO (11:15)
[2016-11-14] MEDS ORDERED: NITR-5 PO (11:15)
[2017-01-02] MEDS ORDERED: FURO40TA3 PO (11:45)
[2017-01-02] MEDS ORDERED: INSDGI SC (19:52)
[2017-01-23] MEDS ORDERED: SYM100 PO (12:38)
[2017-01-23] MEDS ORDERED: ALL100 PO (12:38)
[2017-01-23] MEDS ORDERED: PREG300C PO (12:38)
[2017-01-23] MEDS ORDERED: CARB50TA3 PO (12:44)
[2017-01-23] MEDS ORDERED: SIMV20TA2 PO (17:27)
[2017-03-12] MEDS ORDERED: SPIR25TA PO (10:50)
[2017-03-12] MEDS ORDERED: LVNIS150 SC (10:50)
[2017-03-12] MEDS ORDERED: VERA1TAB52 PO (10:50)
[2017-03-12] MEDS ORDERED: ZNT150 PO (10:50)
[2017-03-12] MEDS ORDERED: PRT40 PO (10:50)
[2017-03-12] MEDS ORDERED: FURO80TA63 PO (10:50)
[2017-03-12] MEDS ORDERED: INSDGI SC (10:50)
== END 2016-08-12 15:03 | disposition home health service (06) | DRG 700 ==
LOC: ENRESERVDT → ENRESERVTM → C.EDB 19:56 → C.MSW 08-08 01:59
PROVIDERS: ADMIT Student in an Organized Health Care Education/Training Program; ATTEND Internal Medicine
PROC: 02HV33Z Insertion of Infusion Device into Superior Vena Cava, Percutaneous Approach (ICD-10-PCS; principal; 2016-08-12)
DX: T83.511A Infection and inflammatory reaction due to indwelling urethral catheter, initial encounter (principal); N39.0 Urinary tract infection, site not specified; Z87.440 Personal history of urinary (tract) infections; K21.9 Gastro-esophageal reflux disease without esophagitis; M10.9 Gout, unspecified; G20 Parkinson's disease; Z86.711 Personal history of pulmonary embolism; Z83.3 Family history of diabetes mellitus; Z88.0 Allergy status to penicillin; R32 Unspecified urinary incontinence; B96.89 Other specified bacterial agents as the cause of diseases classified elsewhere; I10 Essential (primary) hypertension; I50.9 Heart failure, unspecified; E11.9 Type 2 diabetes mellitus without complications; N31.9 Neuromuscular dysfunction of bladder, unspecified; N20.0 Calculus of kidney; Y84.6 Urinary catheterization as the cause of abnormal reaction of the patient, or of later complication, without mention of misadventure at the time of the procedure; Y92.009 Unspecified place in unspecified non-institutional (private) residence as the place of occurrence of the external cause

== ENCOUNTER 2016-08-12 17:27 | Observation (INO) | payer OTHER ==
[~2016-08-12] VITALS: Ht 177.8 cm; Wt 131.0 kg
[~2016-08-12 17:27] MED LIST changes: -CIPR-255 PO; -CIPR1TAB10 PO; -ENOX1INJ13 SQ; +ERTA1INJ IV; -IPRA1AER2 INH; +LVNIS150 SQ
[2016-08-12] MEDS ORDERED: ONDANSETRON INJ 2 MG/ML 2 ML VIAL IV STA (17:56)
[2016-08-12] MEDS ORDERED: SODIUM CHLORIDE 0.9% 1000ML 500 ML IV STA (17:56)
--- NOTE | 2016-08-12 18:13 | EMERGENCY ROOM VISIT NOTE ---
History Report prepared by Tyra: Danny Hernández Under the Supervision of: Dr. Rodrigo Recio M.D. First contact with patient: 17:51 Chief Complaint: FALL Stated Complaint: FALL, BACK PAIN History of Present Illness The patient is a 61 year old male who presents to the Emergency Room by EMS with complaints of persistent lower back and neck pain s/p falling about 2 hours ago. He reports he was discharged from this hospital today after being treated for a UTI. He states that he felt fine walking around this hospital as an inpatient, and felt fine upon being discharged. After returning home, he had a package delivered and received help from a neighbor bringing it inside. The patient notes after this, he became tired and sat down to rest. He then later got up to unload the materials in the package into his refrigerator, and as he was unloading the package he fell to the floor. He notes he hit his head on a cabinet. The patient notes there is a rug in the area where he fell, but does not recall tripping on anything. He also does not recall losing consciousness, or having any lightheadedness, chest pain, or shortness of breath before falling. After falling, the patient notes he was unable to move. He reports having pain in his lower back and neck, but indicates that the neck pain is worse. He rates his pain overall a 9/10 in severity. He notes feeling somewhat weaker compared to baseline, but denies having any pain in his arms or legs. The patient did not receive any medication from EMS, though was offered medication. He states that attending rehab following discharge was discussed. He is currently on IV Ertapenem, and his next dose is due for tomorrow. The patient reports having a history of Parkinson's disease. Source of History: patient Onset: about 2 hours ago Position: neck, back (lower) Symptom Intensity: 9/10 in severity overall Quality: other (back and neck pain) Timing: other (persistent) Associated Symptoms: + weakness, No LOC, No SOB, No chest pain Note: The patient denies lightheadedness, and pain in his arms or legs. Review of Systems See HPI for pertinent positives & negatives. A total of 10 systems reviewed and were otherwise negative. Past Medical & Surgical Medical Problems: (1) Catheter-associated urinary tract infection (2) Diabetes mellitus (3) Dyspnea (4) Gastroesophageal reflux disease (5) Gout (6) Parkinson's disease (7) Pulmonary embolism (8) Syncope (9) Weakness Family History Cancer Diabetes mellitus FH: heart disease Hypertension Social History Smoking Status: Former Smoker Alcohol Use: none Drug Use: none Marital Status: single Housing Status: lives alone Occupation Status: retired Current/Historical Medications Scheduled Allopurinol (Allopurinol), 100 MG PO DAILY Amantadine HCl (Amantadine HCl), 100 MG PO BID Ascorbic Acid (Vitamin C), 1 TABS PO QAM Carbidopa/Levodopa (Sinemet Cr 50MG/200MG), 1 TAB PO BID Dutasteride (Avodart), 0.5 MG PO DAILY Enoxaparin (Lovenox), 150 MG SQ BID Ertapenem Sodium (Invanz), 1 GM IV DAILY Ferrous Sulfate (Iron), 1 TAB PO DAILY Fluoxetine (Prozac), 40 MG PO QAM Furosemide (Furosemide), 80 MG PO BID Insulin Aspart (Novolog Flexpen), 10 UNITS SC AC Insulin Glargine (Lantus), 45 UNITS SC BID Lisinopril (Lisinopril), 40 MG PO QAM Metoprolol Tartrate (Lopressor), 25 MG PO BID Nystatin (Nystop), 1 APPLN EXT TID Omeprazole (Prilosec), 40 MG PO BID Oxycodone/Acetaminophen 5MG/325MG (Oxycodone/Acetaminophen 5MG/325MG), 1-2 TABS PO Q4 Pregabalin (Lyrica), 300 MG PO BID Spironolactone (Aldactone), 25 MG PO BID Tamsulosin HCl (Tamsulosin HCl), 0.4 MG PO QAM Scheduled PRN Colchicine (Colcrys), 0.6 MG PO DAILY PRN for PRN Zolpidem Tartrate (Zolpidem Tartrate), 10 MG PO HS PRN for Sleep Allergies Coded Allergies: Penicillins (Verified Allergy, Severe, 08/12/16) SEVERE RXN PER PT Cephalosporins (Verified Allergy, Unknown, 08/12/16) Sulfamethoxazole w/Trimethoprim (Verified Allergy, Unknown, ., 08/12/16) TAKES LASIX AT HOME Physical Exam Vital Signs Date Time Temp Pulse Resp B/P Pulse Ox O2 Delivery O2 Flow Rate FiO2 08/12/16 22:46 104/78 08/12/16 22:29 86 08/12/16 22:27 86 14 97 08/12/16 21:27 97 21 08/12/16 20:48 154/92 08/12/16 20:27 95 18 98 08/12/16 20:17 125/83 08/12/16 20:17 88 16 125/83 97 08/12/16 18:38 85 20 161/89 96 Room Air 08/12/16 18:34 83 08/12/16 17:41 36.7 83 20 161/89 97 Room Air 08/12/16 17:38 161/89 Physical Exam GENERAL: Patient is in no acute distress. HEENT: No acute trauma, normocephalic atraumatic, mucous membranes moist, no nasal congestion, no scleral icterus. NECK: No stridor, no adenopathy, trachea is midline. Patient moves his head side to side without too much difficulty. LUNGS: Clear to auscultation bilaterally, no wheeze, no rhonchi, breath sounds equal. BACK: Deferred as the patient was in too much pain. HEART: Without murmurs gallops or rubs, regular rate and rhythm. ABDOMEN: Soft, nontender, bowel sounds positive, no hernias, no peritonitis. EXTREMITIES: No cyanosis; mild bilateral pedal edema; full range of motion of all the joints without pain or difficulty, no signs for acute trauma. No cellulitis. NEUROLOGIC: Oriented x 3, no acute motor or sensory deficits, no focal weakness. SKIN: No rash, no jaundice, no diaphoresis. Medical Decision & Procedures ER Provider Diagnostic Interpretation: Radiology results are stated below per my review and radiologist interpretation: CT HEAD WITHOUT CONTRAST (CT) FINDINGS: No intra or extra-axial mass lesions are visualized. There is no CT evidence of acute cortical infarction. There is no evidence of midline shift. There is no acute hemorrhage. No calvarial fractures are visualized. There are patchy white matter hypodensities likely on a small vessel basis. There is no evidence of pathologic ventricular dilatation. There is opacification of a left-sided ethmoid air cell. IMPRESSION: No acute intracranial findings Electronically signed by: Abe Tejeda M.D. 08/12/2016 8:07 PM Dictated Date/Time: 08/12/2016 8:[address] OF THE CERVICAL SPINE FINDINGS: The visualized portions of the lung apices reveal no evidence of pneumothorax. The prevertebral soft tissues are normal. No fractures or subluxations are visualized. There are multilevel degenerative changes. There are exuberant anterior bridging osteophytes. There is prominent calcification of posterior longitudinal ligament at the C2-3 level with secondary spinal canal narrowing. IMPRESSION: Advanced degenerative change. No acute fractures or traumatic subluxations are visualized. Electronically signed by: Abe Tejeda M.D. 08/12/2016 8:10 PM Dictated Date/Time: 08/12/2016 8:[address] LUMBAR SPINE WITHOUT FINDINGS: T12-L1 level: There is posterior osteophytic spurring with mild spinal canal narrowing L1-2 level: There is no evidence of significant disc bulge or focal herniation. There is no evidence of spinal or foraminal stenosis. L2-3 level: There is no evidence of significant disc bulge or focal herniation. There is no evidence of spinal or foraminal stenosis. L3-4 level: There is a circumferential disc bulge with minor spinal canal narrowing L4-5 level: There is a circumferential disc bulge with mild to moderate spinal stenosis L5-S1 level: There is no evidence of significant disc bulge or focal herniation. There is no evidence of spinal or foraminal stenosis. There are bilateral iliac stents. There is partial ankylosis of the SI joints. There are prominent anterior osteophytes present. Evaluation is somewhat limited due to the patient's large body habitus. No acute fractures or traumatic subluxations are visualized. IMPRESSION: No acute fractures or traumatic subluxations are visualized. Electronically signed by: Abe Tejeda M.D. 08/12/2016 8:13 PM Dictated Date/Time: 08/12/2016 8:11 PM Laboratory Results 08/12/16 18:38 Red Blood Count 4.84, Mean Corpuscular Volume 84.7, Mean Corpuscular Hemoglobin 28.1, Mean Corpuscular Hemoglobin Concent 33.2, Mean Platelet Volume 9.4, Neutrophils (%) (Auto) 82.3, Lymphocytes (%) (Auto) 11.5, Monocytes (%) (Auto) 4.8, Eosinophils (%) (Auto) 0.9, Basophils (%) (Auto) 0.1, Neutrophils # (Auto) 9.92, Lymphocytes # (Auto) 1.38, Monocytes # (Auto) 0.58, Eosinophils # (Auto) 0.11, Basophils # (Auto) 0.01 08/12/16 18:38 Test 08/12/16 18:38 White Blood Count 12.05 K/uL (4.8-10.8) Red Blood Count 4.84 M/uL (4.7-6.1) Hemoglobin 13.6 g/dL (14.0-18.0) Hematocrit 41.0 % (42-52) Mean Corpuscular Volume 84.7 fL (80-100) Mean Corpuscular Hemoglobin 28.1 pg (25-34) Mean Corpuscular Hemoglobin Concent 33.2 g/dl (32-36) Platelet Count 199 K/uL (130-400) Mean Platelet Volume 9.4 fL (7.4-10.4) Neutrophils (%) (Auto) 82.3 % Lymphocytes (%) (Auto) 11.5 % Monocytes (%) (Auto) 4.8 % Eosinophils (%) (Auto) 0.9 % Basophils (%) (Auto) 0.1 % Neutrophils # (Auto) 9.92 K/uL (1.4-6.5) Lymphocytes # (Auto) 1.38 K/uL (1.2-3.4) Monocytes # (Auto) 0.58 K/uL (0.11-0.59) Eosinophils # (Auto) 0.11 K/uL (0-0.5) Basophils # (Auto) 0.01 K/uL (0-0.2) RDW Standard Deviation 40.8 fL (36.4-46.3) RDW Coefficient of Variation 13.2 % (11.5-14.5) Immature Granulocyte % (Auto) 0.4 % Immature Granulocyte # (Auto) 0.05 K/uL (0.00-0.02) Anion Gap 9.0 mmol/L (3-11) Est Creatinine Clear Calc Drug Dose 73.5 ml/min Estimated GFR () 62.0 Estimated GFR (Non- 53.5 BUN/Creatinine Ratio 16.3 (10-20) Calcium Level 9.2 mg/dl (8.5-10.1) Laboratory results reviewed by me. Medications Administered Medications (Trade) Dose Ordered Sig/Apryl Route Start Time Stop Time Status Last Admin Dose Admin Sodium Chloride (Nss 1000ml) 500 ml @ 999 mls/hr Q31M STAT IV 08/12/16 17:56 08/12/16 18:26 DC 08/12/16 17:56 999 MLS/HR Ondansetron HCl (Zofran Inj) 4 mg NOW STAT IV 08/12/16 17:56 08/12/16 18:04 DC 08/12/16 18:44 4 MG Morphine Sulfate (MoRPHine SULFATE INJ) 4 mg Q30M PRN IV 08/12/16 18:00 08/26/16 17:59 08/12/16 20:20 4 MG ECG Indication: other (fall) Rate (beats per minute): 84 Rhythm: sinus rhythm Findings: 1st degree AV block, no acute ischemic change, no ectopy ED Course 1754: The patient was evaluated in room A4B. A complete history and physical exam was performed. 1755: Ordered Zofran Inj 4 mg IV, and NSS 500 ml @ 999 mls/hr IV. 1799: Ordered Morphine Sulfate 4 mg IV. 2028: The patient does not want to go to rehab. The nurse will conduct an ambulatory trial. 2039: The patient has now decided he wants to stay. 2049: Discussed the patient's case with Dr. Oquendo. The patient will be evaluated for further management. Medical Decision Differentials include cervical or lumbar fracture, cervical or lumbar strain, contusion, skull fracture, intracranial bleed, concussion, debilitation, anemia , electrolyte imbalance, infection, and dysrhythmia. EKG shows a sinus rhythm, no acute ischemia. There was no significant electrolyte abnormality or kidney failure. There was a mild leukocytosis, possibly consistent with infection or just the stress of his fall. No concerning anemia. Brain CT shows no acute bleed or mass effect. C-spine CT shows no acute fracture. Lumbar spine CT shows no acute fracture. The patient has suffered strains and contusions from his fall. The fall was likely mechanical and secondary to some debilitation. He never lost consciousness. The patient is in need of rehabilitation, he will require a hospital stay overnight until a rehabilitation facility has been found. I talked with him and case management. The on-call hospitalist was consulted. Consults Time Called: 2044 Consulting Physician: Dr. Oquendo - Sg Kelsey Returned Call: [phone] Discussed the patient's case with Dr. Oquendo. The patient will be evaluated for further management. Impression Primary Impression: Neck pain Additional Impressions: Back pain Head trauma Weakness Fall Scribe Attestation The scribe's documentation has been prepared under my direction and personally reviewed by me in its entirety. I confirm that the note above accurately reflects all work, treatment, procedures, and medical decision making performed by me. Departure Information Dispostion Being Evaluated By Hospitalist Referrals Reza Ocasio Jr,D.O. (PCP) Patient Instructions My [facility] Problem Qualifiers
[2016-08-12] MEDS: MoRPHine SULFATE 4 MG/ML 1 ML CARP\\VIAL IV PRN ×2 (18:44→20:20)
[2016-08-12 18:50] LABS: BASO % 0.1 %; BASO ABS # 0.01 K/uL (0-0.2); COMPLETE YES; EOS % 0.9 %; IG% 0.4 %; LYMPH % 11.5 %; LYMPH ABS # 1.38 K/uL (1.2-3.4); MEAN CELL VOLUME 84.7 fL (80-100); MEAN CORPUSCULAR HEMOGLOBIN 28.1 pg (25-34); MEAN CORPUSCULAR HGB CONC 33.2 g/dl (32-36); MEAN PLATELET VOLUME 9.4 fL (7.4-10.4); MONO % 4.8 %; NEUT % 82.3 %; PLATELET COUNT 199 K/uL (130-400); RED BLOOD COUNT 4.84 M/uL (4.7-6.1); WHITE BLOOD COUNT 12.05 K/uL (4.8-10.8)
[2016-08-12 19:08] LABS: BUN/CREATININE RATIO 16.3 (10-20); CALCIUM 9.2 mg/dl (8.5-10.1); CREATININE 1.4 mg/dl (0.60-1.40); POTASSIUM 3.7 mmol/L (3.5-5.1)
[2016-08-12] MEDS ORDERED: FLM4 PO (19:10)
[2016-08-12] MEDS ORDERED: ZOLP10TA6 PO (19:10)
[2016-08-12] MEDS ORDERED: FLUO40CA8 PO (19:10)
[2016-08-12] MEDS ORDERED: CLC6 PO (19:10)
[2016-08-12] MEDS ORDERED: SPIR25TA PO (19:10)
[2016-08-12] MEDS ORDERED: DUTA0.5C PO (19:10)
[2016-08-12] MEDS ORDERED: LSN40 PO (19:10)
--- NOTE | 2016-08-12 20:08 | DIAGNOSTIC IMAGING REPORT ---
CT HEAD WITHOUT CONTRAST (CT) CLINICAL HISTORY: Head pain status post trauma COMPARISON STUDY: 02/26/2016 TECHNIQUE: Axial CT of the brain is performed from the vertex to the skull base. IV contrast was not administered for this examination. CT DOSE: 3714.73 mGy.cm FINDINGS: No intra or extra-axial mass lesions are visualized. There is no CT evidence of acute cortical infarction. There is no evidence of midline shift. There is no acute hemorrhage. No calvarial fractures are visualized. There are patchy white matter hypodensities likely on a small vessel basis. There is no evidence of pathologic ventricular dilatation. There is opacification of a left-sided ethmoid air cell. IMPRESSION: No acute intracranial findings Electronically signed by: Abe Tejeda M.D. 08/12/2016 8:07 PM Dictated Date/Time: 08/12/2016 8:06 PM
--- NOTE | 2016-08-12 20:12 | DIAGNOSTIC IMAGING REPORT ---
CT OF THE CERVICAL SPINE CLINICAL HISTORY: Neck pain status post trauma COMPARISON STUDY: No previous studies for comparison. CT DOSE: TECHNIQUE: CT scan of the cervical spine was performed from the skull base to the thoracic inlet. Images are reviewed in the axial, sagittal, and coronal planes. IV contrast was not administered for this examination. FINDINGS: The visualized portions of the lung apices reveal no evidence of pneumothorax. The prevertebral soft tissues are normal. No fractures or subluxations are visualized. There are multilevel degenerative changes. There are exuberant anterior bridging osteophytes. There is prominent calcification of posterior longitudinal ligament at the C2-3 level with secondary spinal canal narrowing. IMPRESSION: Advanced degenerative change. No acute fractures or traumatic subluxations are visualized. Electronically signed by: Abe Tejeda M.D. 08/12/2016 8:10 PM Dictated Date/Time: 08/12/2016 8:07 PM
--- NOTE | 2016-08-12 20:14 | DIAGNOSTIC IMAGING REPORT ---
CT LUMBAR SPINE WITHOUT CT DOSE: CLINICAL HISTORY: Lumbar spine pain status post trauma TECHNIQUE: Helical images were acquired in transverse plane. Reformatted sagittal and coronal images were reviewed. CONTRAST: No contrast was administered COMPARISON STUDY: None. FINDINGS: T12-L1 level: There is posterior osteophytic spurring with mild spinal canal narrowing L1-2 level: There is no evidence of significant disc bulge or focal herniation. There is no evidence of spinal or foraminal stenosis. L2-3 level: There is no evidence of significant disc bulge or focal herniation. There is no evidence of spinal or foraminal stenosis. L3-4 level: There is a circumferential disc bulge with minor spinal canal narrowing L4-5 level: There is a circumferential disc bulge with mild to moderate spinal stenosis L5-S1 level: There is no evidence of significant disc bulge or focal herniation. There is no evidence of spinal or foraminal stenosis. There are bilateral iliac stents. There is partial ankylosis of the SI joints. There are prominent anterior osteophytes present. Evaluation is somewhat limited due to the patient's large body habitus. No acute fractures or traumatic subluxations are visualized. IMPRESSION: No acute fractures or traumatic subluxations are visualized. Electronically signed by: Abe Tejeda M.D. 08/12/2016 8:13 PM Dictated Date/Time: 08/12/2016 8:11 PM
[2016-08-12] MEDS ORDERED: ACETAMINOPHEN 325 MG TAB PO PRN (22:45)
[2016-08-12] MEDS ORDERED: ALUMINUM/MAGNESIUM/SIMETH (MAALOX MAX) 30 ML UDC PO PRN (22:45)
[2016-08-12] MEDS ORDERED: ZOLPIDEM TARTRATE 10 MG TAB PO PRN (22:45)
[2016-08-12] MEDS ORDERED: MAGNESIUM HYDROXIDE SUSP 30 ML UDC PO PRN (22:45)
[2016-08-12] MEDS ORDERED: ONDANSETRON INJ 2 MG/ML 2 ML VIAL IV PRN (22:45)
[2016-08-12] MEDS ORDERED: POLYETHYLENE (MIRALAX) 17 GM PACK PO PRN (23:00)
--- NOTE | 2016-08-12 23:06 | History and Physical ---
History & Physical Date & Time of Service: Aug 12, 2016 at 22:49 Chief Complaint: Fall, Back Pain Primary Care Physician: Reza Ocasio Jr,D.O. History of Present Illness Source: patient 61 y/o M Hx Parkinson disease, chronic Wills with recurrent UTIs, diastolic CHF , DM, hypercoagulable disorder. Pt is post a 4 day admission for a resistant UTI and was D/Cd today with outpt IV antibiotics. He was feeling somewhat weak and then suffered a fall with minor head and back trauma after losing his balance while unpacking something in his kitchen. He was unable to get up after falling and notified EMS resulting in transfer back to the hospital. The option of rehab was discussed with the pt prior to D/C earlier in the day and he may now need to exercise this option as he is unable to independently ambulate. A skeletal survey was performed on the ER ruling out any fractures. He denied additional symptoms such as lightheadedness, CIVIL ENGINEERING DIRECTOR or palpitations prior to falling. He is on BID Lovenox due to history of PE. Past Medical/Surgical History Medical Problems: (1) Diabetes mellitus Status: Chronic (2) Gastroesophageal reflux disease Status: Chronic (3) Gout Status: Chronic (4) Parkinson's disease Status: Chronic (5) Pulmonary embolism Status: Resolved 6) Morbid Obesity 7) Chronic Wills due to Parkinson neurogenic bladder 8) Chronic UTIs 9) Hypercoagulable disorder - on Lovenox BID 10) Chronic diastolic CHF Family History Cancer Diabetes mellitus FH: heart disease Hypertension Social History Smoking Status: Former Smoker Drug Use: none Marital Status: single Housing status: lives alone Occupational Status: retired Immunizations History of Tetanus Vaccine?: probably over 10 yrs ago History of Pneumococcal: apr 2004 History of Hepatitis B Vaccine: 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 Multi-Drug Resistant Organisms History of MDRO: No Allergies Coded Allergies: Penicillins (Verified Allergy, Severe, 08/12/16) SEVERE RXN PER PT Cephalosporins (Verified Allergy, Unknown, 08/12/16) Sulfamethoxazole w/Trimethoprim (Verified Allergy, Unknown, ., 08/12/16) TAKES LASIX AT HOME Home Medications Scheduled Allopurinol (Allopurinol), 100 MG PO DAILY Amantadine HCl (Amantadine HCl), 100 MG PO BID Ascorbic Acid (Vitamin C), 1 TABS PO QAM Carbidopa/Levodopa (Sinemet Cr 50MG/200MG), 1 TAB PO BID Dutasteride (Avodart), 0.5 MG PO DAILY Enoxaparin (Lovenox), 150 MG SQ BID Ertapenem Sodium (Invanz), 1 GM IV DAILY Ferrous Sulfate (Iron), 1 TAB PO DAILY Fluoxetine (Prozac), 40 MG PO QAM Furosemide (Furosemide), 80 MG PO BID Insulin Aspart (Novolog Flexpen), 10 UNITS SC AC Insulin Glargine (Lantus), 45 UNITS SC BID Lisinopril (Lisinopril), 40 MG PO QAM Metoprolol Tartrate (Lopressor), 25 MG PO BID Nystatin (Nystop), 1 APPLN EXT TID Omeprazole (Prilosec), 40 MG PO BID Oxycodone/Acetaminophen 5MG/325MG (Oxycodone/Acetaminophen 5MG/325MG), 1-2 TABS PO Q4 Pregabalin (Lyrica), 300 MG PO BID Spironolactone (Aldactone), 25 MG PO BID Tamsulosin HCl (Tamsulosin HCl), 0.4 MG PO QAM Scheduled PRN Colchicine (Colcrys), 0.6 MG PO DAILY PRN for PRN Zolpidem Tartrate (Zolpidem Tartrate), 10 MG PO HS PRN for Sleep Review of Systems Constitutional: No chills, No fever, No sweats Eyes: No eye pain, No worsening of vision ENT: No hearing loss, No nasal symptoms, No unusual epistaxis Respiratory: No cough, No sputum, No wheezing Cardiovascular: No PND, No chest pain, No orthopnea Abdomen: No nausea, No pain, No vomiting Musculoskeletal: + joint pain, + muscle pain, + problem reported (lower back pain) Genitourinary - Male: No dysuria, No hematuria Neurologic: No memory loss, No paralysis, No weakness Psychiatric: No depression symptoms Endocrine: No fatigue Hematologic / Lymphatic: No abnormal bleeding/bruising Integumentary: No rash Allergic / Immunologic: No environmental allergies Physical Exam Vital Signs Date Time Temp Pulse Resp B/P Pulse Ox O2 Delivery O2 Flow Rate FiO2 08/12/16 22:29 86 08/12/16 20:17 88 16 125/83 97 08/12/16 18:38 85 20 161/89 96 Room Air 08/12/16 18:34 83 08/12/16 17:41 36.7 83 20 161/89 97 Room Air General Appearance: WD/WN, no apparent distress Head: normocephalic Eyes: normal inspection, PERRL, EOMI ENT: normal ENT inspection, pharynx normal Neck: supple, no adenopathy, thyroid normal, no JVD Respiratory/Chest: chest non-tender, lungs clear, normal breath sounds, no respiratory distress, no accessory muscle use, + pertinent finding (LImited exam due to habitus) Cardiovascular: regular rate, rhythm, no murmur, normal peripheral pulses, + pertinent finding (Exam limited - faint heart sounds) Abdomen/GI: normal bowel sounds, non tender, soft Back: normal inspection, no CVA tenderness Extremities/Musculoskelatal: + pedal edema, + pertinent finding (no pain to palpation of lower back) 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, no motor/sensory deficits, alert, normal mood/affect, normal reflexes, oriented x 3 Skin: normal color, warm/dry, no rash Diagnostics Laboratory Results Results Past 24 Hours Test 08/12/16 18:38 Range/Units White Blood Count 12.05 4.8-10.8 K/uL Red Blood Count 4.84 4.7-6.1 M/uL Hemoglobin 13.6 14.0-18.0 g/dL Hematocrit 41.0 42-52 % Mean Corpuscular Volume 84.7 80-100 fL Mean Corpuscular Hemoglobin 28.1 25-34 pg Mean Corpuscular Hemoglobin Concent 33.2 32-36 g/dl Platelet Count 199 130-400 K/uL Mean Platelet Volume 9.4 7.4-10.4 fL Neutrophils (%) (Auto) 82.3 % Lymphocytes (%) (Auto) 11.5 % Monocytes (%) (Auto) 4.8 % Eosinophils (%) (Auto) 0.9 % Basophils (%) (Auto) 0.1 % Neutrophils # (Auto) 9.92 1.4-6.5 K/uL Lymphocytes # (Auto) 1.38 1.2-3.4 K/uL Monocytes # (Auto) 0.58 0.11-0.59 K/uL Eosinophils # (Auto) 0.11 0-0.5 K/uL Basophils # (Auto) 0.01 0-0.2 K/uL RDW Standard Deviation 40.8 36.4-46.3 fL RDW Coefficient of Variation 13.2 11.5-14.5 % Immature Granulocyte % (Auto) 0.4 % Immature Granulocyte # (Auto) 0.05 0.00-0.02 K/uL Sodium Level 135 136-145 mmol/L Potassium Level 3.7 3.5-5.1 mmol/L Chloride Level 99 98-107 mmol/L Carbon Dioxide Level 27 21-32 mmol/L Anion Gap 9.0 3-11 mmol/L Blood Urea Nitrogen 23 7-18 mg/dl Creatinine 1.40 0.60-1.40 mg/dl Est Creatinine Clear Calc Drug Dose 73.5 ml/min Estimated GFR () 62.0 Estimated GFR (Non- 53.5 BUN/Creatinine Ratio 16.3 10-20 Random Glucose 146 70-99 mg/dl Calcium Level 9.2 8.5-10.1 mg/dl Diagnostic Radiology CT head, cervical spine, lumbar spine - negative for acute abnormalities Impression Assessment and Plan 61 y/o M Hx Parkinson disease, chronic Wills with recurrent UTIs, diastolic CHF , DM, hypercoagulable disorder. Pt is post a 4 day admission for a resistant UTI and was D/Cd today with outpt IV antibiotics. He was feeling somewhat weak and then suffered a fall with minor head and back trauma after losing his balance while unpacking something in his kitchen. He was unable to get up after falling and notified EMS resulting in transfer back to the hospital. The option of rehab was discussed with the pt prior to D/C earlier in the day and he may now need to exercise this option as he is unable to independently ambulate. A skeletal survey was performed on the ER ruling out any fractures. He denied additional symptoms such as lightheadedness, CIVIL ENGINEERING DIRECTOR or palpitations prior to falling. 1) Fall - ambulatory dysfunction - result of weakness following hospital admission, underlying Parkinson disease and now also musculoskeletal pain. PT/ OT eval AM and transfer to rehab if approved. 2) Parkinson disease - cont Sinemet 3) Indwelling Wills - recent UTI - Cont course of Ertapenem as prescribed - to complete 10 day course - Providencia on micro 08/07 4) CHF - chronic diastolic - euvolemic - cont Lasix/Aldactone, B vanna, CASSY 5) Hypercoag disorder - BID Lovenox - held for 24 hours due to head trauma - restart 08/13 6) Gout - cont Allopurinol SCDs only due to same day head trauma - full code Total time for this admit including review of meds, labs, imaging and recent records - discussion with pt and ER attending - 34 min Level of Care Med/Surg Resuscitation Status FULL RESUSCITATION VTE Prophylaxis VTE Risk Assessment Done? Y/N: Yes Risk Level: Moderate Given or contraindicated: SCD's
[2016-08-13] MEDS ORDERED: IV FLUIDS COMPLETED PRN (00:15)
[2016-08-13 00:30] VITALS: BP 125/77; TEMP 36.6; Ht 177.8 cm; Wt 131.0 kg
[2016-08-13] MEDS ORDERED: DEXTROSE 50% 50 ML SYR IV PRN (02:45)
[2016-08-13] MEDS ORDERED: GLUCOSE 40% GEL 15 GM TUBE PO PRN (02:45)
[2016-08-13] MEDS ORDERED: GLUCOSE 10 TABS/TUBE PO PRN (02:45)
[2016-08-13] MEDS ORDERED: GLUCAGON FOR INJ 1 MG VIAL SQ PRN (02:45)
[2016-08-13 07:59] VITALS: BP 120/76; PULSE 64; TEMP 36.7; O2SAT 92
[2016-08-13] MEDS: FUROSEMIDE 80 MG TAB PO SCH ×2 (08:11→21:36)
[2016-08-13] MEDS: AMANTADINE HCL 100 MG CAP PO SCH ×2 (08:11→21:37)
[2016-08-13] MEDS: PANTOprazole SOD 40 MG TAB PO SCH ×2 (08:11→21:36)
[2016-08-13] MEDS: CARBIDOPA/LEVODOPA 50/200MG EXT REL TAB PO SCH ×2 (08:12→21:35)
[2016-08-13] MEDS: METOPROLOL TARTRATE 25 MG TAB PO SCH ×2 (08:12→21:00)
[2016-08-13] MEDS: ALLOPURINOL 100 MG TAB PO SCH (08:12)
[2016-08-13] MEDS: TAMSULOSIN HCL 0.4 MG CAP PO SCH (08:12)
[2016-08-13] MEDS: FERROUS SULFATE 325 MG TAB PO SCH (08:13)
[2016-08-13] MEDS: FLUOXETINE HCL 20 MG CAP PO SCH (08:13)
[2016-08-13] MEDS: SPIRONOLACTONE 25 MG TAB PO SCH ×2 (08:13→21:36)
[2016-08-13] MEDS: ERTAPENEM IV 1 GM in SODIUM CHLOR 0.9% AD-VAN 50ML IV SCH (08:13)
[2016-08-13] MEDS: NYSTATIN POWDER 15GM BTL EXT SCH ×3 (08:13→21:29)
[2016-08-13] MEDS: PREGABALIN 150 MG CAP PO SCH ×2 (08:19→21:35)
[2016-08-13] MEDS: INSULIN GLARGINE SOLOSTAR 100 UNITS/ML 3 ML PEN SC SCH ×2 (08:20→21:29)
[2016-08-13] MEDS ORDERED: ERTAPENEM 1 GM ADDVIAL IV SCH (09:00)
[2016-08-13] MEDS ORDERED: LISINOPRIL 40 MG TAB PO SCH (09:00)
[2016-08-13 10:11] VITALS: O2SAT 92
[2016-08-13] MEDS ORDERED: TRAMADOL HCL 50 MG TAB PO PRN (10:30)
[2016-08-13] MEDS ORDERED: TRAMADOL HCL 50 MG TAB ONE (10:40)
[2016-08-13] MEDS ORDERED: INSULIN ASPART 100 UNITS/ML 3 ML PEN SC SCH (11:00)
[2016-08-13] MEDS: OXYCODONE/ACETAMINOPHEN 5-325 TAB PO PRN (13:05)
--- NOTE | 2016-08-13 15:29 | Progress Note ---
Subjective Date of Service: Aug 13, 2016. Subjective Pt evaluation today including: conversation w/ patient, physical exam, chart review, lab review, review of studies, review of inpatient medication list Patient feels better. Now agreeable to rehab as he initially had refused prior to discharge. Verbalized understanding re: increased risk of falls and bleeding especially with anticoagulation. Problem List Medical Problems: (1) Back pain Status: Acute (2) Elevated lactic acid level Status: Acute (3) Fall Status: Acute (4) Head trauma Status: Acute (5) Lower abdominal pain Status: Acute (6) Neck pain Status: Acute (7) Neurogenic bladder Status: Acute (8) Pyelonephritis Status: Acute (9) Sepsis Status: Acute (10) Spinal stenosis Status: Acute (11) Urinary tract infection Status: Acute (12) UTI (urinary tract infection) Status: Acute Review of Systems All Other Systems: Reviewed and Negative Medications Acetaminophen (Tylenol Tab) 650 mg Q4H PRN PO; Start 08/12/16 at 22:45; Stop 09/11/16 at 22:44 Al Hydrox/Mg Hydrox/Simethicone (Maalox Max Susp) 15 ml Q4H PRN PO; Start 08/12 at 22:45; Stop 09/11/16 at 22:44 Allopurinol (Zyloprim Tab) 100 mg DAILY PO Last administered on 08/13/16 08:12; Admin Dose 100 MG; Start 08/13/16 at 09:00; Stop 09/12/16 at 08:59 Amantadine HCl (Symmetrel Cap) 100 mg BID PO Last administered on 08/13/16 08:11 ; Admin Dose 100 MG; Start 08/13/16 at 09:00; Stop 09/12/16 at 08:59 Carbidopa/Levodopa (Sinemet Cr 50/ 200MG Tab) 1 tab BID PO Last administered on 08/13/16 08:12; Admin Dose 1 TAB; Start 08/13/16 at 09:00; Stop 09/12/16 at 08:59 Dextrose (Dextrose 50% 50ML Syringe) 25-50ML OF 50% DW IV FOR... UD PRN IV; Start 08/13/16 at 02:45; Stop 09/12/16 at 02:44 Dutasteride (Avodart Cap) 0.5 mg DAILY PO; Start 08/14/16 at 09:00; Stop 09/13/16 at 08:59 Enoxaparin Sodium (Lovenox Inj) 129 mg BID SQ; Start 08/13/16 at 21:00; Stop at 20:59 Ertapenem/Sodium Chloride (Invanz Iv/Nss Ad-Van 50ml) 50 ml @ 100 mls/hr Q24H IV Last administered on 08/13/16 08:13; Admin Dose 100 MLS/HR; Start 08/13/16 at 09:00; Stop 08/19/16 at 08:59 Ferrous Sulfate (Feosol Tab) 325 mg DAILY PO Last administered on 08/13/16 08:13 ; Admin Dose 325 MG; Start 08/13/16 at 09:00; Stop 09/12/16 at 08:59 Fluoxetine HCl (Prozac Cap) 40 mg QAM PO Last administered on 08/13/16 08:13; Admin Dose 40 MG; Start 08/13/16 at 09:00; Stop 09/12/16 at 08:59 Furosemide (Lasix Tab) 80 mg BID PO Last administered on 08/13/16 08:11; Admin Dose 80 MG; Start 08/13/16 at 09:00; Stop 09/12/16 at 08:59 Glucagon 1 mg 1 mg UD PRN SQ; Start 08/13/16 at 02:45; Stop 09/12/16 at 02:44 Glucose (Glucose 40% Gel) 15-30 GRAMS 15 GRAMS... UD PRN PO; Start 08/13/16 at 02:45; Stop 09/12/16 at 02:44 Glucose (Glucose Chew Tab) 4-8 Tablets 4 Tabl... UD PRN PO; Start 08/13/16 at 02 :45; Stop 09/12/16 at 02:44 Insulin Aspart (novoLOG ASPART) SLIDING SCALE G... ACHS SC; Start 08/13/16 at 16:30; Stop 09/12/16 at 16:29 Insulin Glargine (Lantus Solostar Pen) 45 unit BID SC Last administered on 08:20; Admin Dose 45 UNIT; Start 08/13/16 at 09:00; Stop 09/12/16 at 08:59 Lisinopril (Zestril Tab) 40 mg QAM PO Last administered on 08/13/16 08:11; Admin Dose 40 MG; Start 08/13/16 at 09:00; Stop 09/12/16 at 08:59 Magnesium Hydroxide (Milk Of Magnesia Susp) 30 ml Q6H PRN PO; Start 08/12/16 at 22:45; Stop 09/11/16 at 22:44 Metoprolol Tartrate (Lopressor Tab) 25 mg BID PO Last administered on 08/13/16 08:12; Admin Dose 25 MG; Start 08/13/16 at 09:00; Stop 09/12/16 at 08:59 Miscellaneous (Iv Fluids Completed) 1 ea PRN PRN N/A; Start 08/13/16 at 00:15; Stop 08/13/17 at 00:14 Nystatin (Mycostatin Powder) 1 appln TID EXT Last administered on 08/13/16 13:06 ; Admin Dose 1 APPLN; Start 08/13/16 at 09:00; Stop 09/12/16 at 08:59 Ondansetron HCl (Zofran Inj) 4 mg Q6H PRN IV; Start 08/12/16 at 22:45; Stop at 22:44 Oxycodone/ Acetaminophen (Percocet 5-325mg Tab) 1 tab Q6H PRN PO Last administered on 08/13/16 13:05; Admin Dose 1 TAB; Start 08/13/16 at 10:30; Stop 08/27/16 at 10:29 Pantoprazole Sodium (Protonix Tab) 40 mg BID PO Last administered on 08/13/16 08 :11; Admin Dose 40 MG; Start 08/13/16 at 09:00; Stop 09/12/16 at 08:59 Polyethylene (Miralax Powder Packet) 17 gm DAILY PRN PO; Start 08/12/16 at 23: 00; Stop 09/11/16 at 22:59 Pregabalin (Lyrica Cap) 300 mg BID PO Last administered on 08/13/16 08:19; Admin Dose 300 MG; Start 08/13/16 at 09:00; Stop 09/12/16 at 08:59 Spironolactone (Aldactone Tab) 25 mg BID PO Last administered on 08/13/16 08:13 ; Admin Dose 25 MG; Start 08/13/16 at 09:00; Stop 09/12/16 at 08:59 Tamsulosin HCl (Flomax Cap) 0.4 mg QAM PO Last administered on 08/13/16 08:12; Admin Dose 0.4 MG; Start 08/13/16 at 09:00; Stop 09/12/16 at 08:59 Tramadol HCl (Ultram Tab) 50 mg Q4H PRN PO; Start 08/13/16 at 10:30; Stop at 10:29 Zolpidem Tartrate (Ambien Tab) 10 mg HS PRN PO; Start 08/12/16 at 22:45; Stop 09/11/16 at 22:44 Objective Vital Signs Date Time Temp Pulse Resp B/P Pulse Ox O2 Delivery O2 Flow Rate FiO2 08/13/16 10:11 92 Room Air 08/13/16 08:00 Room Air 08/13/16 07:59 36.7 64 17 120/76 92 Room Air 08/13/16 00:30 80 14 110/65 98 08/13/16 00:30 36.6 18 125/77 Room Air 08/12/16 22:46 104/78 08/12/16 22:29 86 08/12/16 22:27 86 14 97 08/12/16 21:27 97 21 08/12/16 20:48 154/92 08/12/16 20:27 95 18 98 08/12/16 20:17 125/83 08/12/16 20:17 88 16 125/83 97 08/12/16 18:38 85 20 161/89 96 Room Air 08/12/16 18:34 83 08/12/16 17:41 36.7 83 20 161/89 97 Room Air 08/12/16 17:38 161/89 Physical Exam Comments: NAD, AOx3, coherent and fluent speech flat affect, eomi, perrl s1 s2 rrr, no murmurs appreciated ctab no w/r/r abd soft ,nt nd +BS no LE edema robert in place with clear yellow urine Laboratory Results Last 24 Hours Test 08/12/16 18:38 08/13/16 07:15 08/13/16 11:41 White Blood Count 12.05 K/uL Red Blood Count 4.84 M/uL Hemoglobin 13.6 g/dL Hematocrit 41.0 % Mean Corpuscular Volume 84.7 fL Mean Corpuscular Hemoglobin 28.1 pg Mean Corpuscular Hemoglobin Concent 33.2 g/dl Platelet Count 199 K/uL Mean Platelet Volume 9.4 fL Neutrophils (%) (Auto) 82.3 % Lymphocytes (%) (Auto) 11.5 % Monocytes (%) (Auto) 4.8 % Eosinophils (%) (Auto) 0.9 % Basophils (%) (Auto) 0.1 % Neutrophils # (Auto) 9.92 K/uL Lymphocytes # (Auto) 1.38 K/uL Monocytes # (Auto) 0.58 K/uL Eosinophils # (Auto) 0.11 K/uL Basophils # (Auto) 0.01 K/uL RDW Standard Deviation 40.8 fL RDW Coefficient of Variation 13.2 % Immature Granulocyte % (Auto) 0.4 % Immature Granulocyte # (Auto) 0.05 K/uL Sodium Level 135 mmol/L Potassium Level 3.7 mmol/L Chloride Level 99 mmol/L Carbon Dioxide Level 27 mmol/L Anion Gap 9.0 mmol/L Blood Urea Nitrogen 23 mg/dl Creatinine 1.40 mg/dl Est Creatinine Clear Calc Drug Dose 73.5 ml/min Estimated GFR () 62.0 Estimated GFR (Non- 53.5 BUN/Creatinine Ratio 16.3 Random Glucose 146 mg/dl Calcium Level 9.2 mg/dl Bedside Glucose 152 mg/dl 154 mg/dl Assessment and Plan 1. Fall - likely from deconditioning - patient had initially refused rehab on prior admission - now agreeable to inpatient rehab especially with increased risk of falls and bleed in view of anticoagulation - PT/OT evaluation 2. Recent UTI - will need to cont ERtapenem until 08/18/16 - will follow with urology for initiating CIC as outpatient 3. CHronic urinary retention - maintain robert 4. Parkinson's - cont amantadine and sinemet per home regimen 5. Hypercoagulability - h/o DVT and saddle PE - cont enoxaparin, weight-based - PT/OT for physical deconditioning - would try to avoid stopping anticoagulation in view of hypercoagulable state with significant DVT and PE in 2014.
[2016-08-13 15:46] VITALS: BP 108/74; PULSE 79; TEMP 36.3; O2SAT 92
[2016-08-13] MEDS: INSULIN ASPART 100 UNITS/ML 3 ML PEN SC SCH ×2 (18:05→21:28)
[2016-08-13] MEDS: ENOXAPARIN 150 MG/1ML SYR SQ SCH (21:29)
[2016-08-13 21:30] VITALS: BP 96/61; PULSE 69
[2016-08-13 23:28] VITALS: BP 99/65; PULSE 82; TEMP 36.4; O2SAT 92
[2016-08-14] VITALS (7 sets, daily range): BP systolic 90–117; BP diastolic 53–77; PULSE 70–92; TEMP 36.3–36.6; O2SAT 92–97
[2016-08-14 06:22] LABS: CREATININE 2.3 mg/dl (0.60-1.40)
[2016-08-14 06:49] LABS: HEMATOCRIT 37.8 % (42-52); MEAN CELL VOLUME 87.7 fL (80-100); MEAN CORPUSCULAR HEMOGLOBIN 28.1 pg (25-34); MEAN PLATELET VOLUME 9.8 fL (7.4-10.4); PLATELET COUNT 193 K/uL (130-400); RED BLOOD COUNT 4.31 M/uL (4.7-6.1); WHITE BLOOD COUNT 6.96 K/uL (4.8-10.8)
[2016-08-14] MEDS: INSULIN GLARGINE SOLOSTAR 100 UNITS/ML 3 ML PEN SC SCH ×2 (08:17→21:12)
[2016-08-14] MEDS: INSULIN ASPART 100 UNITS/ML 3 ML PEN SC SCH ×4 (08:17→21:00)
[2016-08-14] MEDS: DUTASTERIDE 0.5 MG CAP PO SCH (08:20)
[2016-08-14] MEDS: NYSTATIN POWDER 15GM BTL EXT SCH ×3 (08:20→21:08)
[2016-08-14] MEDS: ENOXAPARIN 150 MG/1ML SYR SQ SCH ×2 (08:21→21:11)
[2016-08-14] MEDS: METOPROLOL TARTRATE 25 MG TAB PO SCH ×2 (08:21→21:09)
[2016-08-14] MEDS: AMANTADINE HCL 100 MG CAP PO SCH ×2 (08:22→21:09)
[2016-08-14] MEDS: FLUOXETINE HCL 20 MG CAP PO SCH (08:22)
[2016-08-14] MEDS: ALLOPURINOL 100 MG TAB PO SCH (08:22)
[2016-08-14] MEDS: CARBIDOPA/LEVODOPA 50/200MG EXT REL TAB PO SCH ×2 (08:22→21:09)
[2016-08-14] MEDS: TAMSULOSIN HCL 0.4 MG CAP PO SCH (08:22)
[2016-08-14] MEDS: PANTOprazole SOD 40 MG TAB PO SCH ×2 (08:23→21:09)
[2016-08-14] MEDS: FERROUS SULFATE 325 MG TAB PO SCH (08:23)
[2016-08-14] MEDS: ERTAPENEM IV 1 GM in SODIUM CHLOR 0.9% AD-VAN 50ML IV SCH (08:30)
[2016-08-14] MEDS: PREGABALIN 150 MG CAP PO SCH ×2 (08:34→21:14)
--- NOTE | 2016-08-14 09:59 | Progress Note ---
Subjective Date of Service: Aug 14, 2016. Subjective Pt evaluation today including: conversation w/ patient, physical exam, lab review, review of studies, review of inpatient medication list Patient feeling well. No new complaints. No dizziness, no chest pain, no sob. Appetite ok. Problem List Medical Problems: (1) Back pain Status: Acute (2) Elevated lactic acid level Status: Acute (3) Fall Status: Acute (4) Head trauma Status: Acute (5) Lower abdominal pain Status: Acute (6) Neck pain Status: Acute (7) Neurogenic bladder Status: Acute (8) Pyelonephritis Status: Acute (9) Sepsis Status: Acute (10) Spinal stenosis Status: Acute (11) Urinary tract infection Status: Acute (12) UTI (urinary tract infection) Status: Acute Review of Systems All Other Systems: Reviewed and Negative Medications Acetaminophen (Tylenol Tab) 650 mg Q4H PRN PO; Start 08/12/16 at 22:45; Stop 09/11/16 at 22:44 Al Hydrox/Mg Hydrox/Simethicone (Maalox Max Susp) 15 ml Q4H PRN PO; Start 08/12 at 22:45; Stop 09/11/16 at 22:44 Allopurinol (Zyloprim Tab) 100 mg DAILY PO Last administered on 08/14/16 08:22; Admin Dose 100 MG; Start 08/13/16 at 09:00; Stop 09/12/16 at 08:59 Amantadine HCl (Symmetrel Cap) 100 mg BID PO Last administered on 08/14/16 08:22 ; Admin Dose 100 MG; Start 08/13/16 at 09:00; Stop 09/12/16 at 08:59 Carbidopa/Levodopa (Sinemet Cr 50/ 200MG Tab) 1 tab BID PO Last administered on 08/14/16 08:22; Admin Dose 1 TAB; Start 08/13/16 at 09:00; Stop 09/12/16 at 08:59 Dextrose (Dextrose 50% 50ML Syringe) 25-50ML OF 50% DW IV FOR... UD PRN IV; Start 08/13/16 at 02:45; Stop 09/12/16 at 02:44 Dutasteride (Avodart Cap) 0.5 mg DAILY PO Last administered on 08/14/16 08:20; Admin Dose 0.5 MG; Start 08/14/16 at 09:00; Stop 09/13/16 at 08:59 Enoxaparin Sodium (Lovenox Inj) 129 mg BID SQ Last administered on 08/14/16 08: 21; Admin Dose 129 MG; Start 08/13/16 at 21:00; Stop 09/12/16 at 20:59 Ertapenem/Sodium Chloride (Invanz Iv/Nss Ad-Van 50ml) 50 ml @ 100 mls/hr Q24H IV Last administered on 08/14/16 08:30; Admin Dose 100 MLS/HR; Start 08/13/16 at 09:00; Stop 08/19/16 at 08:59 Ferrous Sulfate (Feosol Tab) 325 mg DAILY PO Last administered on 08/14/16 08:23 ; Admin Dose 325 MG; Start 08/13/16 at 09:00; Stop 09/12/16 at 08:59 Fluoxetine HCl (Prozac Cap) 40 mg QAM PO Last administered on 08/14/16 08:22; Admin Dose 40 MG; Start 08/13/16 at 09:00; Stop 09/12/16 at 08:59 Glucagon 1 mg 1 mg UD PRN SQ; Start 08/13/16 at 02:45; Stop 09/12/16 at 02:44 Glucose (Glucose 40% Gel) 15-30 GRAMS 15 GRAMS... UD PRN PO; Start 08/13/16 at 02:45; Stop 09/12/16 at 02:44 Glucose (Glucose Chew Tab) 4-8 Tablets 4 Tabl... UD PRN PO; Start 08/13/16 at 02 :45; Stop 09/12/16 at 02:44 Heparin Sodium (Porcine) (Heparin 10 Unit/ ml 5 ml Flush) 5 ml PRN PRN FLUSH Last administered on 08/14/16 10:02; Admin Dose 5 ML; Start 08/14/16 at 06:45; Stop 09/13/16 at 06:44 Insulin Aspart (novoLOG ASPART) SLIDING SCALE G... ACHS SC Last administered on 08/14/16 11:59; Admin Dose 4 UNITS; Start 08/13/16 at 16:30; Stop 09/12/16 at 16:29 Insulin Glargine (Lantus Solostar Pen) 45 unit BID SC Last administered on 08:17; Admin Dose 45 UNIT; Start 08/13/16 at 09:00; Stop 09/12/16 at 08:59 Magnesium Hydroxide (Milk Of Magnesia Susp) 30 ml Q6H PRN PO; Start 08/12/16 at 22:45; Stop 09/11/16 at 22:44 Metoprolol Tartrate (Lopressor Tab) 25 mg BID PO Last administered on 08/14/16 08:21; Admin Dose 25 MG; Start 08/13/16 at 09:00; Stop 09/12/16 at 08:59 Miscellaneous (Iv Fluids Completed) 1 ea PRN PRN N/A; Start 08/13/16 at 00:15; Stop 08/13/17 at 00:14 Nystatin (Mycostatin Powder) 1 appln TID EXT Last administered on 08/14/16 13:42 ; Admin Dose 1 APPLN; Start 08/13/16 at 09:00; Stop 09/12/16 at 08:59 Ondansetron HCl (Zofran Inj) 4 mg Q6H PRN IV; Start 08/12/16 at 22:45; Stop at 22:44 Oxycodone/ Acetaminophen (Percocet 5-325mg Tab) 1 tab Q6H PRN PO Last administered on 08/13/16 13:05; Admin Dose 1 TAB; Start 08/13/16 at 10:30; Stop 08/27/16 at 10:29 Pantoprazole Sodium (Protonix Tab) 40 mg BID PO Last administered on 08/14/16 08 :23; Admin Dose 40 MG; Start 08/13/16 at 09:00; Stop 09/12/16 at 08:59 Polyethylene (Miralax Powder Packet) 17 gm DAILY PRN PO; Start 08/12/16 at 23: 00; Stop 09/11/16 at 22:59 Pregabalin (Lyrica Cap) 300 mg BID PO Last administered on 08/14/16 08:34; Admin Dose 300 MG; Start 08/13/16 at 09:00; Stop 09/12/16 at 08:59 Tamsulosin HCl (Flomax Cap) 0.4 mg QAM PO Last administered on 3/2/17at 08:22; Admin Dose 0.4 MG; Start 08/13/16 at 09:00; Stop 09/12/16 at 08:59 Tramadol HCl (Ultram Tab) 50 mg Q4H PRN PO; Start 08/13/16 at 10:30; Stop at 10:29 Zolpidem Tartrate (Ambien Tab) 10 mg HS PRN PO; Start 08/12/16 at 22:45; Stop 09/11/16 at 22:44 Objective Vital Signs Date Time Temp Pulse Resp B/P Pulse Ox O2 Delivery O2 Flow Rate FiO2 08/14/16 08:18 92 117/77 08/14/16 06:57 36.4 82 16 116/72 93 Room Air 08/14/16 04:00 92 Room Air 08/14/16 00:00 92 Room Air 08/13/16 23:28 36.4 82 18 99/65 92 Room Air 08/13/16 21:30 69 96/61 08/13/16 20:00 Room Air 08/13/16 16:00 Room Air 08/13/16 15:46 36.3 79 16 108/74 92 08/13/16 10:11 92 Room Air Physical Exam Comments: nad, aox3, eomi, perrl, anicteric s1 s2 rrr, no murmurs appreciated ctab no w/r/r abd soft ,nt/nd +BS no LE edema robert in place Laboratory Results Last 24 Hours Test 08/13/16 11:41 08/13/16 16:00 08/13/16 19:22 08/14/16 05:00 Bedside Glucose 154 mg/dl 163 mg/dl 202 mg/dl White Blood Count 6.96 K/uL Red Blood Count 4.31 M/uL Hemoglobin 12.1 g/dL Hematocrit 37.8 % Mean Corpuscular Volume 87.7 fL Mean Corpuscular Hemoglobin 28.1 pg Mean Corpuscular Hemoglobin Concent 32.0 g/dl RDW Standard Deviation 44.8 fL RDW Coefficient of Variation 13.9 % Platelet Count 193 K/uL Mean Platelet Volume 9.8 fL Creatinine 2.30 mg/dl Est Creatinine Clear Calc Drug Dose 45.3 ml/min Estimated GFR () 34.0 Estimated GFR (Non- 29.3 Test 08/14/16 07:28 Bedside Glucose 124 mg/dl Assessment and Plan 1. Fall - likely from deconditioning - patient had initially refused rehab on prior admission - now agreeable to inpatient rehab especially with increased risk of falls and bleed in view of anticoagulation - rehab placement 2. JOLLY - likely volume depletion - BP borderline overnight - will hold lasix, spironolactone, and lisinopril for today - maintain sbp 120-140 systolic - check AM BMP/creat and readmin above meds as necessary 3. Recent UTI - will need to cont ERtapenem until 08/18/16 - will follow with urology for initiating CIC as outpatient 4. CHronic urinary retention - maintain robert 5. Parkinson's - cont amantadine and sinemet per home regimen 6. Hypercoagulability - h/o DVT and saddle PE - cont enoxaparin, weight-based - PT/OT for physical deconditioning - would try to avoid stopping anticoagulation in view of hypercoagulable state with significant DVT and PE in 2015.
[2016-08-15] MEDS: OXYCODONE/ACETAMINOPHEN 5-325 TAB PO PRN (05:32)
[2016-08-15 05:52] LABS: BUN/CREATININE RATIO 18.1 (10-20); CALCIUM 8.9 mg/dl (8.5-10.1); CREATININE 2.3 mg/dl (0.60-1.40); POTASSIUM 3.7 mmol/L (3.5-5.1)
[2016-08-15 07:26] VITALS: BP 130/75; PULSE 67; TEMP 36.9; O2SAT 93
[2016-08-15] MEDS: NYSTATIN POWDER 15GM BTL EXT SCH ×2 (08:00→14:19)
[2016-08-15] MEDS: ERTAPENEM IV 1 GM in SODIUM CHLOR 0.9% AD-VAN 50ML IV SCH (08:00)
[2016-08-15] MEDS: FERROUS SULFATE 325 MG TAB PO SCH (08:01)
[2016-08-15] MEDS: DUTASTERIDE 0.5 MG CAP PO SCH (08:01)
[2016-08-15] MEDS: CARBIDOPA/LEVODOPA 50/200MG EXT REL TAB PO SCH (08:02)
[2016-08-15] MEDS: FLUOXETINE HCL 20 MG CAP PO SCH (08:02)
[2016-08-15] MEDS: METOPROLOL TARTRATE 25 MG TAB PO SCH (08:03)
[2016-08-15] MEDS: AMANTADINE HCL 100 MG CAP PO SCH (08:03)
[2016-08-15] MEDS: ALLOPURINOL 100 MG TAB PO SCH (08:03)
[2016-08-15] MEDS: ENOXAPARIN 150 MG/1ML SYR SQ SCH (08:04)
[2016-08-15] MEDS: PREGABALIN 150 MG CAP PO SCH (08:07)
[2016-08-15] MEDS: PANTOprazole SOD 40 MG TAB PO SCH (08:07)
[2016-08-15] MEDS: TAMSULOSIN HCL 0.4 MG CAP PO SCH (08:08)
[2016-08-15] MEDS: INSULIN GLARGINE SOLOSTAR 100 UNITS/ML 3 ML PEN SC SCH (08:16)
[2016-08-15] MEDS: INSULIN ASPART 100 UNITS/ML 3 ML PEN SC SCH ×3 (08:17→17:25)
--- NOTE | 2016-08-15 14:12 | Discharge Summary ---
Discharge Summary Date of Service Aug 15, 2016. Discharge Summary Admission Date: Aug 12, 2016 at 22:47 Discharge Date: Aug 15, 2016 Discharge Disposition: Rehab Principal Diagnosis: fall, gait dysfunction/physical deconditioning Immunizations: History of Tetanus Vaccine?: probably over 10 yrs ago History of Pneumococcal: apr 2004 History of Hepatitis B Vaccine: 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 Medication Reconciliation New Medications: Enoxaparin (Lovenox) 150 Mg/1 Ml Inj 129 MG SQ BID for 30 Days Continued Medications: Allopurinol (Allopurinol) 100 Mg Tab 100 MG PO DAILY Amantadine HCl (Amantadine HCl) 100 Mg Cap 100 MG PO BID Ascorbic Acid (Vitamin C) 500 Mg Tab 1 TABS PO QAM Carbidopa/Levodopa (Sinemet Cr 50MG/200MG) Tabcr 1 TAB PO BID Colchicine (Colcrys) 0.6 Mg Tab 0.6 MG PO DAILY PRN for PRN Dutasteride (Avodart) 0.5 Mg Cap 0.5 MG PO DAILY, CAP Ertapenem Sodium (Invanz) 1 Gm Inj 1 GM IV DAILY for 6 Days, VIAL Ferrous Sulfate (Iron) 325 Mg Tab 1 TAB PO DAILY Fluoxetine (Prozac) 40 Mg Cap 40 MG PO QAM, CAP Insulin Aspart (Novolog Flexpen) 100 Units/Ml Inj 10 UNITS SC AC, #1 BOX 1 Refill Insulin Glargine (Lantus) 100 Unit/Ml Inj 45 UNITS SC BID, VIAL Metoprolol Tartrate (Lopressor) 25 Mg Tab 25 MG PO BID Nystatin (Nystop) 45 Appln/15 Gm Powd 1 APPLN EXT TID for 10 Days, #1 1 Refill apply in between skin folds on lower abdomen for 10 days Omeprazole (Prilosec) 40 Mg Cap 40 MG PO BID Oxycodone/Acetaminophen 5MG/325MG (Oxycodone/Acetaminophen 5MG/325MG) 1 Tab Tab 1-2 TABS PO Q4 for Pain Pregabalin (Lyrica) 300 Mg Cap 300 MG PO BID Tamsulosin HCl (Tamsulosin HCl) 0.4 Mg Cap 0.4 MG PO QAM Zolpidem Tartrate (Zolpidem Tartrate) 10 Mg Tab 10 MG PO HS PRN for Sleep, TAB Discontinued Medications: Enoxaparin (Lovenox) 150 Mg/1 Ml Inj 150 MG SQ BID Furosemide (Furosemide) 80 Mg Tab 80 MG PO BID, #60 Lisinopril (Lisinopril) 40 Mg Tab 40 MG PO QAM Spironolactone (Aldactone) 25 Mg Tab 25 MG PO BID, TAB Hospital Course 61 y/o M Hx Parkinson disease, chronic Robert with recurrent UTIs, diastolic CHF , DM, hypercoagulable disorder. Pt is post a 4 day admission for a resistant UTI and was D/Cd today with outpt IV antibiotics. He was feeling somewhat weak and then suffered a fall with minor head and back trauma after losing his balance while unpacking something in his kitchen. He was unable to get up after falling and notified EMS resulting in transfer back to the hospital. The option of rehab was discussed with the pt prior to D/C earlier in the day and he may now need to exercise this option as he is unable to independently ambulate. A skeletal survey was performed on the ER ruling out any fractures. He denied additional symptoms such as lightheadedness, CP or palpitations prior to falling. He is on BID Lovenox due to history of PE. CT of the head and spine were negative for bleeding and fractures. His lovenox was resumed the day after. PT/OT evaluation was performed again. He had initially declined rehab on first discharge. After explaining that he needs to decrease his risk of falls especially that he needs anticoagulation on a chronic basis, he is now agreeable to go to a rehab facility. During this hospitalization, his creatinine also elevated from 1.4 baseline to 2.3. His lasix, lisinopril, and spironolactone were held wihtout much improvement. Bladder scan was performed, however, robert appears to be draining well. ON day of discharge, patient has no complaints. No chest pain , no sob, no lightheadedness. No headaches. Vital Signs Date Time Temp Pulse Resp B/P Pulse Ox O2 Delivery O2 Flow Rate FiO2 08/15/16 08:00 Room Air 08/15/16 07:26 36.9 67 20 130/75 93 nad, aox3, flat affect coherent with fluent speech s1 s2 rrr, no murmurs appreciated ctab no w/r/r abd soft, nt/nd +BS no LE edema robert in place 1. Fall - likely from deconditioning - patient had initially refused rehab on prior admission - now agreeable to inpatient rehab especially with increased risk of falls and bleed in view of anticoagulation - rehab placement 2. JOLLY - likely volume depletion - BP borderline overnight - will hold lasix, spironolactone, and lisinopril for today - maintain sbp 120-140 systolic - will need renal function followed while in rehab - baseline is 1.3-1.4, last creat on 08/15/16 2.3 - BP normotensive 3. Recent UTI - will need to cont ERtapenem until 08/18/16 - will follow with urology for initiating CIC as outpatient 4. CHronic urinary retention - maintain robert - bladder scan performed, robert draining well 5. Parkinson's - cont amantadine and sinemet per home regimen 6. Hypercoagulability - h/o DVT and saddle PE - cont enoxaparin, weight-based - PT/OT for physical deconditioning, rehab placement - would try to avoid stopping anticoagulation in view of hypercoagulable state with significant DVT and PE in 2015. Total Time Spent: Less than 30 minutes This includes examination of the patient, discharge planning, medication reconciliation, and communication with other providers. Discharge Instructions Please refer to the electronic Patient Visit Report (Discharge Instructions) for additional information. Follow-Up Please check renal function in 2-3 days. IF develops significant leg swelling, would resume lasix.
[2016-08-15] MEDS ORDERED: LVNIS150 SQ (14:24)
--- NOTE | 2016-08-15 14:27 | Discharge Instructions ---
Discharge Instructions Admission Reason for Admission: Fall, General Weakness Discharge Discharge Diagnosis / Problem: to acute inpatient rehab Discharge Goals Goal(s): Improve function Activity Recommendations Activity Limitations: per Instructions/Follow-up section . Current Hospital Diet Patient's current hospital diet: Diabetes Type 2 Diet Discharge Diet Recommended Diet: Diabetes Type 2 Diet Pending Studies Studies pending at discharge: no Laboratory Results Patient's creatinine did bump up to 2.3 from baseline of 1.4. I have stopped the furosemide, lisinopril and spironolactone for now. Please follow-up renal function in a few days. If patient starts developing leg swelling, may resume furosemide. Once kidney function improves, should have lisinopril and spironolactone resumed, provided BP will tolerate. Medical Emergencies . Who to Call and When: Medical Emergencies: If at any time you feel your situation is an emergency, please call 911 immediately. . Non-Emergent Contact Non-Emergency issues call your: Primary Care Provider . . "Provider Documentation" section prepared by Mary Simmons. VTE Core Measure Inpt VTE Proph given/why not?: Enoxaparin (Lovenox)SQ, SCD's
[2016-08-15 15:58] VITALS: BP 91/57; PULSE 64; TEMP 36.5; O2SAT 96
[2016-08-15 16:19] VITALS: BP 91/57; PULSE 64; TEMP 36.5; O2SAT 96
[2016-08-15] MEDS ORDERED: OXYC-643 PO (16:24)
[2016-11-14] MEDS ORDERED: LPR25 PO (10:42)
[2016-11-14] MEDS ORDERED: LVNIS150 SQ (10:42)
[2016-11-14] MEDS ORDERED: IMDSR30 PO (10:42)
[2016-11-14] MEDS ORDERED: ASPEC81 PO (10:42)
[2016-11-14] MEDS ORDERED: CARV3.122 PO (11:15)
[2016-11-14] MEDS ORDERED: NITR-5 PO (11:15)
[2017-01-02] MEDS ORDERED: FURO40TA3 PO (11:45)
[2017-01-02] MEDS ORDERED: INSDGI SC (19:52)
[2017-01-23] MEDS ORDERED: PREG300C PO (12:38)
[2017-01-23] MEDS ORDERED: SYM100 PO (12:38)
[2017-01-23] MEDS ORDERED: ALL100 PO (12:38)
[2017-01-23] MEDS ORDERED: CARB50TA3 PO (12:44)
[2017-01-23] MEDS ORDERED: SIMV20TA2 PO (17:27)
[2017-03-12] MEDS ORDERED: PRT40 PO (10:50)
[2017-03-12] MEDS ORDERED: FURO80TA63 PO (10:50)
[2017-03-12] MEDS ORDERED: ZNT150 PO (10:50)
[2017-03-12] MEDS ORDERED: VERA1TAB52 PO (10:50)
[2017-03-12] MEDS ORDERED: SPIR25TA PO (10:50)
[2017-03-12] MEDS ORDERED: INSDGI SC (10:50)
[2017-03-12] MEDS ORDERED: LVNIS150 SC (10:50)
== END 2016-08-15 18:00 ==
LOC: ENRESERVDT → ENRESERVTM → EDBD 17:27 → C.EDA 17:28 → C.MS2W 22:47
PROVIDERS: ADMIT Internal Medicine; ATTEND Internal Medicine
DX: R53.1 Weakness (principal); R29.6 Repeated falls; S09.90XA Unspecified injury of head, initial encounter; M54.2 Cervicalgia; M54.5 Low back pain; N17.9 Acute kidney failure, unspecified; D68.59 Other primary thrombophilia; R33.8 Other retention of urine; N31.9 Neuromuscular dysfunction of bladder, unspecified; G20 Parkinson's disease; M10.9 Gout, unspecified; E11.9 Type 2 diabetes mellitus without complications; I50.32 Chronic diastolic (congestive) heart failure; K21.9 Gastro-esophageal reflux disease without esophagitis; E66.01 Morbid (severe) obesity due to excess calories; Z79.899 Other long term (current) drug therapy; Z79.4 Long term (current) use of insulin; Z79.01 Long term (current) use of anticoagulants; Z87.440 Personal history of urinary (tract) infections; Z86.711 Personal history of pulmonary embolism; Z86.718 Personal history of other venous thrombosis and embolism; Z68.41 Body mass index [BMI] 40.0-44.9, adult; Z87.891 Personal history of nicotine dependence; Z83.3 Family history of diabetes mellitus; Z82.49 Family history of ischemic heart disease and other diseases of the circulatory system; W18.39XA Other fall on same level, initial encounter; Y93.G1 Activity, food preparation and clean up; Y92.000 Kitchen of unspecified non-institutional (private) residence as the place of occurrence of the external cause; Y99.8 Other external cause status

== ENCOUNTER → 2016-08-20 | Outpatient (CLI) | payer OTHER ==
[~2016-08-20] MED LIST changes: +ALL100 PO; +AMLO-114 PO; +ASCO500T3 PO; +ASPEC81 PO; +CARB50TA3 PO; +CARV3.12 PO; +CARV3.122 PO; +CLC6 PO; +COLC0.6T54 PO; +CRG3125 PO; +DOCU-94 PO; +DTRSR/2 PO; +DUTA0.5C PO; +DUTA1CAP25 PO; +DXY100 PO; +ENOX1INJ14 SC; -ERTA1INJ IV; +FLM4 PO; +FLUO40CA8 PO; +FURO40TA3 PO; +FURO80TA63 PO; +IMDSR30 PO; +INSDGI SC; +ISOS-11 PO; +LEVO1TAB35 PO; +LOSA50TA6 PO; -LSX80 PO; +LVNIS120 SC; +LVNIS150 SC; +METO25TA56 PO; +MIRA1TAB3 PO; +NITR-5 PO; +NVLGI/PEN SQ; +OXYC-57 PO; +PREG1CAP34 PO; +PREG300C PO; +PRLSR20 PO; +PRT40 PO; +SENN1TAB77 PO; -SIMV-151 PO; +SIMV20TA2 PO; +SPIR25TA PO; +SPIR25TA89 PO; +SYM100 PO; +TAMS0.4C38 PO; +VERA1TAB52 PO; +ZNT150 PO; +ZOLP10TA PO; +ZOLP10TA6 PO
[2016-08-20 08:34] LABS: BLOOD UREA NITROGEN 18 mg/dl (7-18); BUN/CREATININE RATIO 16.4 (10-20); CALCIUM 9.3 mg/dl (8.5-10.1); CARBON DIOXIDE 25 mmol/L (21-32); CHLORIDE 109 mmol/L (98-107); GLUCOSE 61 mg/dl (70-99); POTASSIUM 4.1 mmol/L (3.5-5.1); SODIUM 144 mmol/L (136-145)
[2016-08-20 08:47] LABS: URINE APPEARANCE CLOUDY (CLEAR); URINE BILIRUBIN NEG (NEG); URINE COLOR YELLOW; URINE NITRITE NEG (NEG); URINE PH 5.5 (4.5-7.5); UROBILINOGEN NEG (NEG)
[2016-08-20 08:49] LABS: MANUAL MICROSCOPIC REQUIRED? YES; REVIEW REQ? NO
[2016-08-20 09:24] LABS: URINE BACTERIA 1+ (NEG); URINE RBC >30 /hpf (0-4)
== END ==
LOC: C.LABCC 08:02
PROVIDERS: ATTEND Internal Medicine
DX: N17.9 Acute kidney failure, unspecified (principal)

== ENCOUNTER → 2016-08-25 | Outpatient (CLI) | payer OTHER | LOC: C.LABCC 07:55 | PROVIDERS: ATTEND Internal Medicine | DX: I82.409 Acute embolism and thrombosis of unspecified deep veins of unspecified lower extremity (principal); I26.99 Other pulmonary embolism without acute cor pulmonale ==

== ENCOUNTER → 2016-08-30 | Outpatient (CLI) | payer OTHER ==
[2016-08-30 12:46] LABS: HEPATITIS B AB NEG
== END ==
LOC: C.LABSPEC 11:08
PROVIDERS: ATTEND Internal Medicine
DX: T14.8 Other injury of unspecified body region (principal); W46.1XXA Contact with contaminated hypodermic needle, initial encounter

== ENCOUNTER 2016-09-05 11:41 | Inpatient (IN) | payer OTHER ==
[~2016-09-05] VITALS: Ht 175.3 cm; Wt 126.2 kg
[~2016-09-05 11:41] MED LIST changes: -ALL100 PO; -AMLO-114 PO; -ASCO500T3 PO; -ASPEC81 PO; -CARB50TA3 PO; -CARV3.12 PO; -CARV3.122 PO; -COLC0.6T54 PO; -CRG3125 PO; -DOCU-94 PO; -DTRSR/2 PO; -DUTA1CAP25 PO; -DXY100 PO; -ENOX1INJ14 SC; -FURO40TA3 PO; -FURO80TA63 PO; -IMDSR30 PO; -INSDGI SC; -ISOS-11 PO; -LEVO1TAB35 PO; -LOSA50TA6 PO; -LSN40 PO; -LVNIS120 SC; -LVNIS150 SC; -METO25TA56 PO; -MIRA1TAB3 PO; -NITR-5 PO; -NVLGI/PEN SQ; -OXYC-57 PO; -PREG1CAP34 PO; -PREG300C PO; -PRLSR20 PO; -PRT40 PO; -SENN1TAB77 PO; -SIMV20TA2 PO; -SPIR25TA PO; -SPIR25TA89 PO; -SYM100 PO; -TAMS0.4C38 PO; -VERA1TAB52 PO; -ZNT150 PO; -ZOLP10TA PO
[2016-09-05] MEDS ORDERED: SODIUM CHLORIDE 0.9% 1000ML 1,000 ML IV STA (13:02)
[2016-09-05] MEDS ORDERED: HYDROmorphone INJ 1 MG/ML SYR IV STA (13:02)
--- NOTE | 2016-09-05 13:10 | EMERGENCY ROOM VISIT NOTE ---
History First contact with patient: 12:52 Chief Complaint: BACK PAIN Stated Complaint: BACK PAIN History of Present Illness The patient is a 61 year old male who presents to the Emergency Room with complaints of back and buttock pain. The patient states that he has had pain in the low back in the buttock area for the last 3 days. He also reports left lower abdominal pain. The patient states the pain is a 10/10. He denies any falls or injuries. He states he spends most of his day seated. He denies any radiating pain. He denies any numbness vomiting, weakness of the extremities. He denies any loss of bowel or bladder control. However, he does have an indwelling Wills catheter. He denies any fevers. He denies any pain in his chest or trouble breathing. The patient has a history of PE. He is a diabetic. The patient has been admitted for sepsis in the past. Review of Systems A 10 system review of systems was completed with positives and pertinent negatives listed in the HPI. Past Medical/Surgical History Medical Problems: (1) Catheter-associated urinary tract infection (2) Diabetes mellitus (3) Dyspnea (4) Gastroesophageal reflux disease (5) Gout (6) Parkinson's disease (7) Pulmonary embolism (8) Syncope (9) Weakness Family History Cancer Diabetes mellitus FH: heart disease Hypertension Social History Smoking Status: Never Smoker Alcohol Use: none Drug Use: none Marital Status: single Housing Status: lives alone Occupation Status: retired Current/Historical Medications Scheduled Allopurinol (Allopurinol), 100 MG PO DAILY Amantadine HCl (Amantadine HCl), 100 MG PO BID Ascorbic Acid (Vitamin C), 1 TABS PO QAM Carbidopa/Levodopa (Sinemet Cr 50MG/200MG), 1 TAB PO BID Dutasteride (Avodart), 0.5 MG PO DAILY Enoxaparin (Lovenox), 1 ML SC BID Ferrous Sulfate (Iron), 1 TAB PO DAILY Fluoxetine (Prozac), 40 MG PO QAM Insulin Aspart (Novolog Flexpen), 10 UNITS SC AC Insulin Glargine (Lantus), 45 UNITS SC BID Metoprolol Tartrate (Lopressor), 25 MG PO BID Nystatin (Nystop), 1 APPLN EXT TID Omeprazole (Prilosec), 40 MG PO BID Oxycodone/Acetaminophen 5MG/325MG (Oxycodone/Acetaminophen 5MG/325MG), 1-2 TABS PO Q4 Pregabalin (Lyrica), 300 MG PO BID Tamsulosin HCl (Tamsulosin HCl), 0.4 MG PO QAM Scheduled PRN Colchicine (Colcrys), 0.6 MG PO DAILY PRN for PRN Zolpidem Tartrate (Zolpidem Tartrate), 10 MG PO HS PRN for Sleep Allergies Coded Allergies: Penicillins (Verified Allergy, Severe, 09/05/16) SEVERE RXN PER PT Cephalosporins (Verified Allergy, Unknown, 09/05/16) Sulfamethoxazole w/Trimethoprim (Verified Allergy, Unknown, ., 09/05/16) TAKES LASIX AT HOME Physical Exam Vital Signs Date Time Temp Pulse Resp B/P Pulse Ox O2 Delivery O2 Flow Rate FiO2 09/05/16 16:28 107 09/05/16 16:15 118 18 153/103 95 Room Air 09/05/16 15:56 120 18 168/108 98 Room Air 09/05/16 14:08 128 18 171/108 94 Room Air 09/05/16 12:23 120 09/05/16 11:53 36.5 114 16 165/86 95 Room Air Physical Exam VITALS: Vitals are noted on the nurse's note and reviewed by myself. Vital signs stable. GENERAL: This is an obese ill-appearing 61-year-old male, in no acute distress, nondiaphoretic, well-developed well-nourished. SKIN: There is erythema, excoriation and drainage noted over the buttocks. There is no obvious fluctuance or induration. There is tenderness over the gluteal cleft and to the buttocks. There is no tenting of the skin. Her seems to be purulent drainage. There is superficial ecchymosis over the abdomen secondary to injections. The patient's skin is slightly yellow in color. Capillary reflex less than 2 seconds. HEAD: Normocephalic atraumatic. EARS: The external ears are normal in appearance. EYES: Pupils equal round and reactive to light and accommodation. Conjunctivae without injection, sclerae without icterus. Extraocular movements intact. NOSE: Patent, turbinates without inflammation or discharge. MOUTH: Mucous membranes moist. Tonsils are not enlarged. Pharynx without erythema or exudate. Uvula midline. Airway patent. Tongue does not deviate. NECK: Supple without nuchal rigidity. No JVD. HEART: Fast rate, regular rhythm, no murmurs gallops or rubs. LUNGS: Clear to auscultation bilaterally without wheezes, rales or rhonchi. No retractions or accessory muscle use. ABDOMEN: Positive bowel sounds x 4. Soft, marked suprapubic and left lower quadrant tenderness no obvious masses or organomegaly. MUSCULOSKELETAL: No muscle atrophy, erythema, or edema noted. Full range of motion without joint tenderness in all extremities. No tenderness to palpation. Strength 5/5 throughout. NEURO: Patient was alert and oriented to person place and time. Normal sensation to light and sharp touch. Deep tendon reflexes 2+ throughout. No focal neurological deficits. Medical Decision & Procedures ER Provider Diagnostic Interpretation: LUMBAR SPINE CT CT DOSE: HISTORY: low back pain TECHNIQUE: Multiaxial CT images of the lumbar spine were performed and reformatted in the sagittal and coronal plane without the use of contrast. COMPARISON: None. FINDINGS: Alignment and curvature intact. There is no fracture or subluxation. Partial ankylosis of the sacroiliac joints and fusion of the L5-S1 disc space is again noted. Incomplete spondylolysis at S1 remains unchanged. Large partially fused anterior osteophytes. IVC and iliac vein stent is again noted. Paraspinal soft tissues are unremarkable. IMPRESSION: No change from the prior study. No acute fracture or subluxation within the lumbar spine. DIAGNOSTIC IMAGING [~ rep ct add3]] CT SCAN OF THE ABDOMEN AND PELVIS WITH IV CONTRAST CLINICAL HISTORY: Lower abdominal pain. COMPARISON STUDY: Abdominal CT dated 08/08/2016. TECHNIQUE: Following the IV administration of 119 cc of Optiray 320, CT scan of the abdomen and pelvis is performed from the lung bases to the proximal femora. Images are reviewed in the axial, sagittal, and coronal planes. IV contrast was administered without complication. Automated dose control exposure was utilized. CT DOSE: 1567.02 mGy.cm FINDINGS: Lung bases: The heart is normal in size and without pericardial effusion. The lung bases are clear noting dependent atelectasis. There is a small hiatal hernia. Liver: The contrast-enhanced liver is normal in size, contour, and attenuation. There is no intrahepatic biliary ductal dilatation. The hepatic veins and portal veins are patent. Gallbladder: Unremarkable. Spleen: Normal in size and attenuation. Pancreas: Unremarkable. Adrenal glands: Unremarkable. Kidneys: The contrast enhanced kidneys demonstrate mild cortical atrophy. Cortical scarring is present in the lower pole the left kidney. There is no hydronephrosis. The kidneys enhance symmetrically. There are least 2 nonobstructing calculi in the lower pole of left kidney measuring up to 7 mm. Scattered subcentimeter cortical hypodensities likely represent cysts but are too small for definitive characterization. Abdominal vasculature: The abdominal aorta is normal in course and caliber noting mild atherosclerotic calcification. Stents are present within the inferior vena cava and the iliac veins. Patency cannot be assessed. Caput medusae are present within the ventral abdominal pannus. Bowel: The small bowel and colon are normal in course and caliber. The appendix is not identified and reported surgically absent. Peritoneum: There is no intraperitoneal free air or abdominal ascites. Lymphadenopathy: None. Pelvic viscera: The prostate gland is mildly enlarged and heterogeneous. The bladder wall appears mildly thickened. Gas is present within the bladder lumen. A Wills balloon is inflated within the penile shaft. There is a small fat-containing left inguinal hernia. Findings suggest previous right inguinal herniorrhaphy. Skeletal structures: The skeletal structures are osteopenic. Degenerative change is present throughout the lumbosacral spine.: No lytic or blastic lesions are seen. Degenerative change and partial fusion is noted in the sacroiliac joints. IMPRESSION: 1. There are no acute infectious or inflammatory findings in the abdomen or pelvis. 2. A Wills balloon is inflated within the penile shaft. Repositioning is indicated. 3. Gas within the bladder lumen is likely related to instrumentation. Clinical correlation will be required. 4. Nonobstructing left calculi. 5. Additional changes as above. SINGLE VIEW CHEST CLINICAL HISTORY: Generalized abdominal pain. FINDINGS: An AP, portable, upright chest radiograph is compared to study dated 05/14/2016 and correlated with chest CT dated 02/25/2016. The examination is degraded by portable technique, large body habitus, and patient rotation. The cardiomediastinal silhouette is top normal for projection. Chronic interstitial thickening is unchanged and there is mild elevation of right hemidiaphragm. The lungs and pleural spaces are otherwise clear. No pneumothorax is seen. The skeletal structures are osteopenic. The Bony thorax is grossly intact. IMPRESSION: No acute cardiopulmonary abnormality. Laboratory Results 09/05/16 13:59 Red Blood Count 4.37, Mean Corpuscular Volume 86.3, Mean Corpuscular Hemoglobin 29.1, Mean Corpuscular Hemoglobin Concent 33.7, Mean Platelet Volume 9.3, Neutrophils (%) (Auto) 87.9, Lymphocytes (%) (Auto) 5.8, Monocytes (%) (Auto) 5.7, Eosinophils (%) (Auto) 0.2, Basophils (%) (Auto) 0.1, Neutrophils # (Auto) 9.98, Lymphocytes # (Auto) 0.66, Monocytes # (Auto) 0.65, Eosinophils # (Auto) 0.02, Basophils # (Auto) 0.01 09/05/16 13:59 Test 09/05/16 13:42 09/05/16 13:59 09/05/16 14:09 Urine Color YELLOW Urine Appearance SL CLOUDY (CLEAR) Urine pH 5.5 (4.5-7.5) Urine Specific [employer] [place] >= 1.030 (1.000-1.030) Urine Protein 1+ (NEG) Urine Glucose (UA) NEG (NEG) Urine Ketones 3+ (NEG) Urine Occult Blood 3+ (NEG) Urine Nitrite NEG (NEG) Urine Bilirubin NEG (NEG) Urine Urobilinogen NEG (NEG) Urine Leukocyte Esterase TRACE (NEG) Urine RBC >30 /hpf (0-4) Urine WBC >30 /hpf (0-5) Urine Epithelial Cells 0-5 /lpf (0-5) Urine Bacteria 1+ (NEG) Urine Hyaline Casts 1-5 /lpf (0-5) White Blood Count 11.35 K/uL (4.8-10.8) Red Blood Count 4.37 M/uL (4.7-6.1) Hemoglobin 12.7 g/dL (14.0-18.0) Hematocrit 37.7 % (42-52) Mean Corpuscular Volume 86.3 fL (80-100) Mean Corpuscular Hemoglobin 29.1 pg (25-34) Mean Corpuscular Hemoglobin Concent 33.7 g/dl (32-36) Platelet Count 190 K/uL (130-400) Mean Platelet Volume 9.3 fL (7.4-10.4) Neutrophils (%) (Auto) 87.9 % Lymphocytes (%) (Auto) 5.8 % Monocytes (%) (Auto) 5.7 % Eosinophils (%) (Auto) 0.2 % Basophils (%) (Auto) 0.1 % Neutrophils # (Auto) 9.98 K/uL (1.4-6.5) Lymphocytes # (Auto) 0.66 K/uL (1.2-3.4) Monocytes # (Auto) 0.65 K/uL (0.11-0.59) Eosinophils # (Auto) 0.02 K/uL (0-0.5) Basophils # (Auto) 0.01 K/uL (0-0.2) RDW Standard Deviation 44.3 fL (36.4-46.3) RDW Coefficient of Variation 14.1 % (11.5-14.5) Immature Granulocyte % (Auto) 0.3 % Immature Granulocyte # (Auto) 0.03 K/uL (0.00-0.02) Erythrocyte Sedimentation Rate > 90 mm/hr (0-14) Prothrombin Time 11.5 SECONDS (9.0-12.0) Prothromb Time International Ratio 1.1 (0.9-1.1) Activated Partial Thromboplast Time 26.9 SECONDS (21.0-31.0) Partial Thromboplastin Ratio 1.0 Anion Gap 10.0 mmol/L (3-11) Est Creatinine Clear Calc Drug Dose 91.5 ml/min Estimated GFR () 82.9 Estimated GFR (Non- 71.6 BUN/Creatinine Ratio 19.4 (10-20) Calcium Level 9.2 mg/dl (8.5-10.1) Total Bilirubin 0.7 mg/dl (0.2-1) Aspartate Amino Transf (AST/SGOT) 6 U/L (15-37) Alanine Aminotransferase (ALT/SGPT) 22 U/L (12-78) Alkaline Phosphatase 121 U/L (45-117) Troponin I < 0.015 ng/ml (0-0.045) C-Reactive Protein 15.60 mg/dl (0-0.29) Total Protein 8.1 gm/dl (6.4-8.2) Albumin 3.2 gm/dl (3.4-5.0) Globulin 4.9 gm/dl (2.5-4.0) Albumin/Globulin Ratio 0.7 (0.9-2) Bedside Lactic Acid Venous 1.50 mmol/L (0.90-1.70) Medications Administered Medications (Trade) Dose Ordered Sig/Apryl Route Start Time Stop Time Status Last Admin Dose Admin Hydromorphone HCl 1 mg 1 mg NOW STAT IV 09/05/16 13:02 09/05/16 13:07 DC 09/05/16 14:07 1 MG Sodium Chloride (Nss 1000ml) 1,000 ml @ 250 mls/hr Q4H STAT IV 09/05/16 13:02 09/05/16 17:01 DC 09/05/16 14:06 250 MLS/HR Ertapenem (Invanz Iv) 1 gm ONE ONCE IV 09/05/16 16:15 09/05/16 16:16 DC 09/05/16 16:49 1 GM ED Course The patient was seen and examined. Previous visits were reviewed. The patient does not have a fever. He does have a mild leukocytosis of 11.35. Sedimentation rate and CRP are elevated. The patient does not have any significant electrolyte abnormalities. Troponin is not elevated. INR is 1.1. Urinalysis suggests urinary tract infection. The patient was hydrated with normal saline solution he was given 1 mg IV Dilaudid with good improvement in his pain He was given 1 g IV ertapenem The patient presents to the emergency department with severe low back, buttock and suprapubic pain. The patient has indwelling Wills catheter. The Wills catheter was repositioned as the balloon was noted to be in the penile shaft on CT imaging. The patient does have a history of recurrent urinary tract infections. Most recently, his urine culture revealed resistance to fluoroquinolones. He is allergic to cephalosporins, penicillins and sulfa. Sensitivity to ertapenem was noted. Therefore, he was started on ertapenem in the emergency department. Additionally, he does have skin breakdown in the buttock area. The patient seemed to have stool that initially seemed runny and almost purulent in nature over his buttock and scrotum. There is no obvious abscess. He does have erythema beneath his pannus. This may be candidal in nature. The patient would benefit from further evaluation and management in the hospital. The case was discussed with the [facility] physician group hospitalist service and they will evaluate the patient. The patient was also seen and examined by who agrees with the assessment and treatment plan. Medical Decision DIFFERENTIAL DIAGNOSIS: Hepatitis, cholecystitis, cholangitis, biliary colic, pancreatitis, pneumonia, subdiaphragmatic abscess, appendicitis, inguinal hernia , nephrolithiasis, inflammatory bowel disease, mesenteric adenitis, peptic ulcer disease, GERD, gastritis, pancreatitis, myocardial infarction, pericarditis, ruptured aortic aneurysm, appendicitis, gastroenteritis, bowel obstruction, splenic infarct, diverticulitis, mesenteric ischemia, metabolic, peritonitis, among others. Impression Primary Impression: Catheter-associated urinary tract infection Additional Impressions: Abdominal pain Soni infection Skin breakdown Departure Information Referrals [facility] (PCP) Patient Instructions [facility] Problem Qualifiers
[2016-09-05] MEDS ORDERED: OPTIRAY 320 IV PRN (13:15)
--- NOTE | 2016-09-05 13:25 | DIAGNOSTIC IMAGING REPORT ---
SINGLE VIEW CHEST CLINICAL HISTORY: Generalized abdominal pain. FINDINGS: An AP, portable, upright chest radiograph is compared to study dated 05/14/2016 and correlated with chest CT dated 02/25/2016. The examination is degraded by portable technique, large body habitus, and patient rotation. The cardiomediastinal silhouette is top normal for projection. Chronic interstitial thickening is unchanged and there is mild elevation of right hemidiaphragm. The lungs and pleural spaces are otherwise clear. No pneumothorax is seen. The skeletal structures are osteopenic. The Bony thorax is grossly intact. IMPRESSION: No acute cardiopulmonary abnormality. Electronically signed by: Rodrigo Ni M.D. 09/05/2016 1:24 PM Dictated Date/Time: 09/05/2016 1:23 PM
[2016-09-05 13:57] LABS: MANUAL MICROSCOPIC REQUIRED? YES; URINE APPEARANCE SL CLOUDY (CLEAR); URINE COLOR YELLOW; URINE NITRITE NEG (NEG); URINE PH 5.5 (4.5-7.5); URINE SPECIFIC GRAVITY >= 1.030 (1.000-1.030); UROBILINOGEN NEG (NEG)
[2016-09-05 14:11] LABS: URINE BILIRUBIN NEG (NEG)
[2016-09-05 14:12] LABS: REVIEW REQ? NO
[2016-09-05 14:27] LABS: URINE RBC >30 /hpf (0-4); URINE WBC >30 /hpf (0-5)
[2016-09-05 14:28] LABS: BASO % 0.1 %; BASO ABS # 0.01 K/uL (0-0.2); COMPLETE YES; EOS % 0.2 %; HEMATOCRIT 37.7 % (42-52); IG% 0.3 %; LYMPH % 5.8 %; LYMPH ABS # 0.66 K/uL (1.2-3.4); MEAN CELL VOLUME 86.3 fL (80-100); MEAN CORPUSCULAR HEMOGLOBIN 29.1 pg (25-34); MEAN CORPUSCULAR HGB CONC 33.7 g/dl (32-36); MEAN PLATELET VOLUME 9.3 fL (7.4-10.4); MONO % 5.7 %; NEUT % 87.9 %; PLATELET COUNT 190 K/uL (130-400); RED BLOOD COUNT 4.37 M/uL (4.7-6.1); WHITE BLOOD COUNT 11.35 K/uL (4.8-10.8)
[2016-09-05 14:28] LABS: URINE BACTERIA 1+ (NEG)
[2016-09-05 14:32] LABS: ZZURINE CULT IF INDIC CATH YES
[2016-09-05 14:39] LABS: INR 1.1 (0.9-1.1); PROTHROMBIN TIME (PATIENT) 11.5 SECONDS (9.0-12.0)
[2016-09-05 14:46] LABS: ALT/SGPT 22 U/L (12-78); AST/SGOT 6 U/L (15-37); BLOOD UREA NITROGEN 21 mg/dl (7-18); BUN/CREATININE RATIO 19.4 (10-20); CALCIUM 9.2 mg/dl (8.5-10.1); CARBON DIOXIDE 26 mmol/L (21-32); CHLORIDE 104 mmol/L (98-107); GLUCOSE 181 mg/dl (70-99); POTASSIUM 4.2 mmol/L (3.5-5.1); SODIUM 140 mmol/L (136-145)
[2016-09-05 14:51] LABS: ALB/GLOB RATIO 0.7 (0.9-2); ALKALINE PHOSPHATASE 121 U/L (45-117)
[2016-09-05] MEDS ORDERED: LVNIS150 SC (15:00)
--- NOTE | 2016-09-05 15:48 | DIAGNOSTIC IMAGING REPORT ---
LUMBAR SPINE CT CT DOSE: HISTORY: low back pain TECHNIQUE: Multiaxial CT images of the lumbar spine were performed and reformatted in the sagittal and coronal plane without the use of contrast. COMPARISON: None. FINDINGS: Alignment and curvature intact. There is no fracture or subluxation. Partial ankylosis of the sacroiliac joints and fusion of the L5-S1 disc space is again noted. Incomplete spondylolysis at S1 remains unchanged. Large partially fused anterior osteophytes. IVC and iliac vein stent is again noted. Paraspinal soft tissues are unremarkable. IMPRESSION: No change from the prior study. No acute fracture or subluxation within the lumbar spine. Electronically signed by: Silver Rhodes M.D. 09/05/2016 3:46 PM Dictated Date/Time: 09/05/2016 3:38 PM
--- NOTE | 2016-09-05 15:49 | DIAGNOSTIC IMAGING REPORT ---
CT SCAN OF THE ABDOMEN AND PELVIS WITH IV CONTRAST CLINICAL HISTORY: Lower abdominal pain. COMPARISON STUDY: Abdominal CT dated 08/08/2016. TECHNIQUE: Following the IV administration of 119 cc of Optiray 320, CT scan of the abdomen and pelvis is performed from the lung bases to the proximal femora. Images are reviewed in the axial, sagittal, and coronal planes. IV contrast was administered without complication. Automated dose control exposure was utilized. CT DOSE: 1567.02 mGy.cm FINDINGS: Lung bases: The heart is normal in size and without pericardial effusion. The lung bases are clear noting dependent atelectasis. There is a small hiatal hernia. Liver: The contrast-enhanced liver is normal in size, contour, and attenuation. There is no intrahepatic biliary ductal dilatation. The hepatic veins and portal veins are patent. Gallbladder: Unremarkable. Spleen: Normal in size and attenuation. Pancreas: Unremarkable. Adrenal glands: Unremarkable. Kidneys: The contrast enhanced kidneys demonstrate mild cortical atrophy. Cortical scarring is present in the lower pole the left kidney. There is no hydronephrosis. The kidneys enhance symmetrically. There are least 2 nonobstructing calculi in the lower pole of left kidney measuring up to 7 mm. Scattered subcentimeter cortical hypodensities likely represent cysts but are too small for definitive characterization. Abdominal vasculature: The abdominal aorta is normal in course and caliber noting mild atherosclerotic calcification. Stents are present within the inferior vena cava and the iliac veins. Patency cannot be assessed. Caput medusae are present within the ventral abdominal pannus. Bowel: The small bowel and colon are normal in course and caliber. The appendix is not identified and reported surgically absent. Peritoneum: There is no intraperitoneal free air or abdominal ascites. Lymphadenopathy: None. Pelvic viscera: The prostate gland is mildly enlarged and heterogeneous. The bladder wall appears mildly thickened. Gas is present within the bladder lumen. A Wills balloon is inflated within the penile shaft. There is a small fat-containing left inguinal hernia. Findings suggest previous right inguinal herniorrhaphy. Skeletal structures: The skeletal structures are osteopenic. Degenerative change is present throughout the lumbosacral spine.: No lytic or blastic lesions are seen. Degenerative change and partial fusion is noted in the sacroiliac joints. IMPRESSION: 1. There are no acute infectious or inflammatory findings in the abdomen or pelvis. 2. A Wills balloon is inflated within the penile shaft. Repositioning is indicated. 3. Gas within the bladder lumen is likely related to instrumentation. Clinical correlation will be required. 4. Nonobstructing left calculi. 5. Additional changes as above. Electronically signed by: Rodrigo Ni M.D. 09/05/2016 3:47 PM Dictated Date/Time: 09/05/2016 3:39 PM
--- NOTE | 2016-09-05 16:06 | EMERGENCY ROOM VISIT NOTE ---
ED Visit Note First contact with patient: 12:52 This Patient was discussed with the physician Instructor Nurse, Sasha Lora PA-C. The pertinent historical and physical exam findings were confirmed. I agree with the studies ordered and with the interpretations of these studies. I agree with the disposition and care plan.
[2016-09-05] MEDS ORDERED: ERTAPENEM 1 GM ADDVIAL IV ONE (16:15)
[2016-09-05] MEDS ORDERED: DEXTROSE 50% 50 ML SYR IV PRN (17:00)
[2016-09-05] MEDS ORDERED: ONDANSETRON INJ 2 MG/ML 2 ML VIAL IV PRN (17:00)
[2016-09-05] MEDS ORDERED: GLUCAGON FOR INJ 1 MG VIAL SQ PRN (17:00)
[2016-09-05] MEDS ORDERED: GLUCOSE 40% GEL 15 GM TUBE PO PRN (17:00)
[2016-09-05] MEDS ORDERED: HEPARIN SOD 5000 UNIT/0.5 ML CARP SQ SCH (17:00)
[2016-09-05] MEDS ORDERED: GLUCOSE 10 TABS/TUBE PO PRN (17:00)
[2016-09-05] MEDS ORDERED: ACETAMINOPHEN 325 MG TAB PO PRN (17:00)
[2016-09-05] MEDS ORDERED: ZOLPIDEM TARTRATE 10 MG TAB PO PRN (17:15)
--- NOTE | 2016-09-05 17:23 | History and Physical ---
History & Physical Date & Time of Service: Sep 05, 2016 at 17:22 Chief Complaint: Back Pain Primary Care Physician: Reza Ocasio Jr,D.O. History of Present Illness Source: patient Pt is a 61 yo male who presents to the ER with complaints of back pain and bladder pain for past 3 days. Pt has hx of indwelling urinary cath and has been admitted mult times for UTIs in the past and has hx of MDR infections and also has mult allergies. Pt reports fevers and chills as well and denies any radiating pain. He denies any numbness vomiting, weakness of the extremities. He denies any loss of bowel or bladder control. Pt sees Dr Case. Past Medical/Surgical History Medical Problems: (1) Diabetes mellitus Status: Chronic (2) Gastroesophageal reflux disease Status: Chronic (3) Gout Status: Chronic (4) Parkinson's disease Status: Chronic (5) Pulmonary embolism Status: Resolved Family History Cancer Diabetes mellitus FH: heart disease Hypertension Social History Smoking Status: Never Smoker Drug Use: none Marital Status: single Housing status: lives alone Occupational Status: retired Immunizations History of Tetanus Vaccine?: probably over 10 yrs ago History of Pneumococcal: apr 2004 History of Hepatitis B Vaccine: 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 Multi-Drug Resistant Organisms History of MDRO: No Allergies Coded Allergies: Penicillins (Verified Allergy, Severe, 09/05/16) SEVERE RXN PER PT Cephalosporins (Verified Allergy, Unknown, 09/05/16) Sulfamethoxazole w/Trimethoprim (Verified Allergy, Unknown, ., 09/05/16) TAKES LASIX AT HOME Home Medications Scheduled Allopurinol (Allopurinol), 100 MG PO DAILY Amantadine HCl (Amantadine HCl), 100 MG PO BID Ascorbic Acid (Vitamin C), 1 TABS PO QAM Carbidopa/Levodopa (Sinemet Cr 50MG/200MG), 1 TAB PO BID Dutasteride (Avodart), 0.5 MG PO DAILY Enoxaparin (Lovenox), 1 ML SC BID Ferrous Sulfate (Iron), 1 TAB PO DAILY Fluoxetine (Prozac), 40 MG PO QAM Insulin Aspart (Novolog Flexpen), 10 UNITS SC AC Insulin Glargine (Lantus), 45 UNITS SC BID Metoprolol Tartrate (Lopressor), 25 MG PO BID Nystatin (Nystop), 1 APPLN EXT TID Omeprazole (Prilosec), 40 MG PO BID Oxycodone/Acetaminophen 5MG/325MG (Oxycodone/Acetaminophen 5MG/325MG), 1-2 TABS PO Q4 Pregabalin (Lyrica), 300 MG PO BID Tamsulosin HCl (Tamsulosin HCl), 0.4 MG PO QAM Scheduled PRN Colchicine (Colcrys), 0.6 MG PO DAILY PRN for PRN Zolpidem Tartrate (Zolpidem Tartrate), 10 MG PO HS PRN for Sleep Review of Systems Constitutional: No chills, No fever Respiratory: No cough, No sputum Cardiovascular: No chest pain, No orthopnea Abdomen: No diarrhea, No nausea, No pain, No vomiting Musculoskeletal: + joint pain, No muscle pain, No swelling Genitourinary - Male: No dysuria, No hematuria Neurologic: No memory loss, No paralysis Integumentary: No itch, No rash Physical Exam Vital Signs Date Time Temp Pulse Resp B/P Pulse Ox O2 Delivery O2 Flow Rate FiO2 09/05/16 16:28 107 09/05/16 16:15 118 18 153/103 95 Room Air 09/05/16 15:56 120 18 168/108 98 Room Air 09/05/16 14:08 128 18 171/108 94 Room Air 09/05/16 12:23 120 09/05/16 11:53 36.5 114 16 165/86 95 Room Air General Appearance: WD/WN, + mild distress, + obese Neck: supple, no adenopathy Respiratory/Chest: lungs clear, normal breath sounds Cardiovascular: no edema, no gallop Abdomen/GI: non tender, soft Neurologic/Psych: alert, oriented x 3 Diagnostics Laboratory Results Results Past 24 Hours Test 09/05/16 13:42 09/05/16 13:59 09/05/16 14:09 Range/Units Urine Color YELLOW Urine Appearance SL CLOUDY CLEAR Urine pH 5.5 4.5-7.5 Urine Specific [place] >= 1.030 1.000-1.030 Urine Protein 1+ NEG Urine Glucose (UA) NEG NEG Urine Ketones 3+ NEG Urine Occult Blood 3+ NEG Urine Nitrite NEG NEG Urine Bilirubin NEG NEG Urine Urobilinogen NEG NEG Urine Leukocyte Esterase TRACE NEG Urine RBC >30 0-4 /hpf Urine WBC >30 0-5 /hpf Urine Epithelial Cells 0-5 0-5 /lpf Urine Bacteria 1+ NEG Urine Hyaline Casts 1-5 0-5 /lpf White Blood Count 11.35 4.8-10.8 K/uL Red Blood Count 4.37 4.7-6.1 M/uL Hemoglobin 12.7 14.0-18.0 g/dL Hematocrit 37.7 42-52 % Mean Corpuscular Volume 86.3 80-100 fL Mean Corpuscular Hemoglobin 29.1 25-34 pg Mean Corpuscular Hemoglobin Concent 33.7 32-36 g/dl Platelet Count 190 130-400 K/uL Mean Platelet Volume 9.3 7.4-10.4 fL Neutrophils (%) (Auto) 87.9 % Lymphocytes (%) (Auto) 5.8 % Monocytes (%) (Auto) 5.7 % Eosinophils (%) (Auto) 0.2 % Basophils (%) (Auto) 0.1 % Neutrophils # (Auto) 9.98 1.4-6.5 K/uL Lymphocytes # (Auto) 0.66 1.2-3.4 K/uL Monocytes # (Auto) 0.65 0.11-0.59 K/uL Eosinophils # (Auto) 0.02 0-0.5 K/uL Basophils # (Auto) 0.01 0-0.2 K/uL RDW Standard Deviation 44.3 36.4-46.3 fL RDW Coefficient of Variation 14.1 11.5-14.5 % Immature Granulocyte % (Auto) 0.3 % Immature Granulocyte # (Auto) 0.03 0.00-0.02 K/uL Erythrocyte Sedimentation Rate > 90 0-14 mm/hr Prothrombin Time 11.5 9.0-12.0 SECONDS Prothromb Time International Ratio 1.1 0.9-1.1 Activated Partial Thromboplast Time 26.9 21.0-31.0 SECONDS Partial Thromboplastin Ratio 1.0 Sodium Level 140 136-145 mmol/L Potassium Level 4.2 3.5-5.1 mmol/L Chloride Level 104 98-107 mmol/L Carbon Dioxide Level 26 21-32 mmol/L Anion Gap 10.0 3-11 mmol/L Blood Urea Nitrogen 21 7-18 mg/dl Creatinine 1.10 0.60-1.40 mg/dl Est Creatinine Clear Calc Drug Dose 91.5 ml/min Estimated GFR () 82.9 Estimated GFR (Non- 71.6 BUN/Creatinine Ratio 19.4 10-20 Random Glucose 181 70-99 mg/dl Calcium Level 9.2 8.5-10.1 mg/dl Total Bilirubin 0.7 0.2-1 mg/dl Aspartate Amino Transf (AST/SGOT) 6 15-37 U/L Alanine Aminotransferase (ALT/SGPT) 22 12-78 U/L Alkaline Phosphatase 121 45-117 U/L Troponin I < 0.015 0-0.045 ng/ml C-Reactive Protein 15.60 0-0.29 mg/dl Total Protein 8.1 6.4-8.2 gm/dl Albumin 3.2 3.4-5.0 gm/dl Globulin 4.9 2.5-4.0 gm/dl Albumin/Globulin Ratio 0.7 0.9-2 Bedside Lactic Acid Venous 1.50 0.90-1.70 mmol/L Microbiology Results 09/05/16 Blood Culture, Received Pending 09/05/16 Blood Culture, Received Pending 09/05/16 Urine Culture, Received Pending Impression Assessment and Plan 61-year-old male with chronic indwelling Wills catheter presents with catheter associated urinary tract infection. Catheter associated urinary tract infection - Abnormal UA; urine cultures pending - No septic features on arrival - IV ertapenem was started. - IV rehydration with NSS 100 ml/hr There is a previous CHF history as such lower rate was used - Morphine 4 mg every 2 hours; scale down as patient tolerates - Infectious diseases to be consulted for recommendations on chronic antimicrobial prophylaxis - Urology to be consulted for chronic indwelling Wills catheter management - Follow daily CBC and PRP CHF with preserved EF - Last EF noted to be 55-60% - Continue home dose of Lisinopril, Metoprolol and Lasix Hypercholesterolemia - Continue simvastatin Parkinson's - Continue amantadine - Continue Sinemet Type 2 diabetes - Home insulin regimen continued - Sliding-scale been started - Type 2 diabetic diet Gout - Continue allopurinol DVT prophylaxis with history of DVT/PE - Patient on home regimen of 150 mg Lovenox s.c BID . History of extensive DVT CODE STATUS DNR VTE Prophylaxis VTE Risk Assessment Done? Y/N: Yes Risk Level: Moderate
[2016-09-05 19:34] VITALS: BP 169/88; PULSE 92; TEMP 36.5; O2SAT 99
[2016-09-05] MEDS: OXYCODONE/ACETAMINOPHEN 5-325 TAB PO PRN (19:36)
[2016-09-05 19:42] VITALS: BP 169/88; PULSE 92; TEMP 36.5; O2SAT 99; Ht 175.3 cm; Wt 126.2 kg
[2016-09-05] MEDS: INSULIN ASPART 100 UNITS/ML 3 ML PEN SC SCH (21:00)
[2016-09-05] MEDS: SODIUM CHLORIDE 0.9% 1000ML 1,000 ML IV SCH (21:04)
[2016-09-05] MEDS: INSULIN GLARGINE SOLOSTAR 100 UNITS/ML 3 ML PEN SC SCH (21:14)
[2016-09-05 21:17] VITALS: BP 170/93; PULSE 102
[2016-09-05] MEDS: METOPROLOL TARTRATE 25 MG TAB PO SCH (21:18)
[2016-09-05] MEDS: CARBIDOPA/LEVODOPA 50/200MG EXT REL TAB PO SCH (21:19)
[2016-09-05] MEDS: PANTOprazole SOD 40 MG TAB PO SCH (21:19)
[2016-09-05] MEDS: PREGABALIN 150 MG CAP PO SCH (21:19)
[2016-09-05] MEDS: NYSTATIN POWDER 15GM BTL EXT SCH (21:20)
[2016-09-05] MEDS: AMANTADINE HCL 100 MG CAP PO SCH (21:20)
[2016-09-05] MEDS: ENOXAPARIN 120 MG/0.8 ML SYR SC SCH (21:21)
[2016-09-05 23:52] VITALS: BP 158/87; PULSE 81; TEMP 36.7; O2SAT 96
[2016-09-06 05:32] LABS: BASO % 0.2 %; BASO ABS # 0.02 K/uL (0-0.2); COMPLETE YES; EOS % 2.4 %; HEMATOCRIT 34.4 % (42-52); IG% 0.5 %; LYMPH % 12.2 %; LYMPH ABS # 1.03 K/uL (1.2-3.4); MEAN CELL VOLUME 86.9 fL (80-100); MEAN CORPUSCULAR HEMOGLOBIN 28.5 pg (25-34); MEAN CORPUSCULAR HGB CONC 32.8 g/dl (32-36); MEAN PLATELET VOLUME 8.9 fL (7.4-10.4); MONO % 9.4 %; NEUT % 75.3 %; PLATELET COUNT 184 K/uL (130-400); RED BLOOD COUNT 3.96 M/uL (4.7-6.1); WHITE BLOOD COUNT 8.44 K/uL (4.8-10.8)
[2016-09-06 05:50] LABS: ESTIMATED AVERAGE GLUCOSE 137 mg/dl; HA1C FLAG Normal (Normal)
[2016-09-06 06:04] LABS: BUN/CREATININE RATIO 20.5 (10-20); CALCIUM 8.9 mg/dl (8.5-10.1); CREATININE 0.99 mg/dl (0.60-1.40); POTASSIUM 3.7 mmol/L (3.5-5.1)
[2016-09-06 07:22] VITALS: BP 143/75; PULSE 84; TEMP 36.5; O2SAT 95
[2016-09-06] MEDS: AVODART: ORDER AWAITING ACTION SCH ×4 (08:00→23:40)
[2016-09-06] MEDS: PANTOprazole SOD 40 MG TAB PO SCH ×2 (08:15→20:19)
[2016-09-06] MEDS: CARBIDOPA/LEVODOPA 50/200MG EXT REL TAB PO SCH ×2 (08:15→20:19)
[2016-09-06] MEDS: AMANTADINE HCL 100 MG CAP PO SCH ×2 (08:15→20:20)
[2016-09-06] MEDS: METOPROLOL TARTRATE 25 MG TAB PO SCH ×2 (08:16→20:19)
[2016-09-06] MEDS: FERROUS SULFATE 325 MG TAB PO SCH (08:16)
[2016-09-06] MEDS: FLUOXETINE HCL 20 MG CAP PO SCH (08:16)
[2016-09-06] MEDS: ASCORBIC ACID 500 MG TAB PO SCH (08:16)
[2016-09-06] MEDS: TAMSULOSIN HCL 0.4 MG CAP PO SCH (08:17)
[2016-09-06] MEDS: ALLOPURINOL 100 MG TAB PO SCH (08:17)
[2016-09-06] MEDS: ENOXAPARIN 120 MG/0.8 ML SYR SC SCH ×2 (08:17→20:21)
[2016-09-06] MEDS: INSULIN GLARGINE SOLOSTAR 100 UNITS/ML 3 ML PEN SC SCH ×2 (08:26→20:26)
[2016-09-06] MEDS: INSULIN ASPART 100 UNITS/ML 3 ML PEN SC SCH ×4 (08:28→20:21)
[2016-09-06] MEDS: NYSTATIN POWDER 15GM BTL EXT SCH ×3 (08:29→20:18)
[2016-09-06 08:30] VITALS: O2SAT 95
[2016-09-06] MEDS: PREGABALIN 150 MG CAP PO SCH ×2 (08:35→20:39)
--- NOTE | 2016-09-06 11:06 | Hospitalist Progress Note ---
Hospitalist Progress Note Date of Service Sep 06, 2016. Subjective Pt evaluation today including: conversation w/ patient, physical exam, chart review, lab review, review of studies, review of inpatient medication list Patient with Parkinson's disease presented with UTI. He reports feeling, "OK". No fevers overnight. No pain reported. Additional Comments: A 10 system review was performed and all were negative. Positives were placed in the subjective section. Objective Vital Signs Date Time Temp Pulse Resp B/P Pulse Ox O2 Delivery O2 Flow Rate FiO2 09/06/16 07:22 36.5 84 18 143/75 95 Room Air 09/06/16 00:00 Room Air 09/05/16 23:52 36.7 81 18 158/87 96 Room Air 09/05/16 21:17 102 170/93 09/05/16 19:42 36.5 92 20 169/88 99 Room Air 09/05/16 19:34 36.5 92 20 169/88 99 Room Air 09/05/16 17:44 104 18 167/98 98 Room Air 09/05/16 16:28 107 09/05/16 16:15 118 18 153/103 95 Room Air 09/05/16 15:56 120 18 168/108 98 Room Air 09/05/16 14:08 128 18 171/108 94 Room Air 09/05/16 12:23 120 09/05/16 11:53 36.5 114 16 165/86 95 Room Air Physical Exam Notes: GEN: Awake, alert. Not in acute distress HEENT: Tm's intact, no inflammation, EOMI, PERRLA, MMM Neck: Soft, supple Lungs: CTA b/l, no r/r/w Heart: REG, nrl S1S2 without murmurs, rubs or gallops Abdomen: Soft, NT, ND, + BS EXT: No C/C/E NEURO: CN's II-XII grossly intact, non-focal, Skin: warm, dry, no rashes PSYCH: pleasant. Laboratory Results Last 24 Hours Test 09/05/16 13:42 09/05/16 13:59 09/05/16 14:09 09/05/16 17:50 Urine Color YELLOW Urine Appearance SL CLOUDY Urine pH 5.5 Urine Specific [place] >= 1.030 Urine Protein 1+ Urine Glucose (UA) NEG Urine Ketones 3+ Urine Occult Blood 3+ Urine Nitrite NEG Urine Bilirubin NEG Urine Urobilinogen NEG Urine Leukocyte Esterase TRACE Urine RBC >30 /hpf Urine WBC >30 /hpf Urine Epithelial Cells 0-5 /lpf Urine Bacteria 1+ Urine Hyaline Casts 1-5 /lpf White Blood Count 11.35 K/uL Red Blood Count 4.37 M/uL Hemoglobin 12.7 g/dL Hematocrit 37.7 % Mean Corpuscular Volume 86.3 fL Mean Corpuscular Hemoglobin 29.1 pg Mean Corpuscular Hemoglobin Concent 33.7 g/dl Platelet Count 190 K/uL Mean Platelet Volume 9.3 fL Neutrophils (%) (Auto) 87.9 % Lymphocytes (%) (Auto) 5.8 % Monocytes (%) (Auto) 5.7 % Eosinophils (%) (Auto) 0.2 % Basophils (%) (Auto) 0.1 % Neutrophils # (Auto) 9.98 K/uL Lymphocytes # (Auto) 0.66 K/uL Monocytes # (Auto) 0.65 K/uL Eosinophils # (Auto) 0.02 K/uL Basophils # (Auto) 0.01 K/uL RDW Standard Deviation 44.3 fL RDW Coefficient of Variation 14.1 % Immature Granulocyte % (Auto) 0.3 % Immature Granulocyte # (Auto) 0.03 K/uL Erythrocyte Sedimentation Rate > 90 mm/hr Prothrombin Time 11.5 SECONDS Prothromb Time International Ratio 1.1 Activated Partial Thromboplast Time 26.9 SECONDS Partial Thromboplastin Ratio 1.0 Sodium Level 140 mmol/L Potassium Level 4.2 mmol/L Chloride Level 104 mmol/L Carbon Dioxide Level 26 mmol/L Anion Gap 10.0 mmol/L Blood Urea Nitrogen 21 mg/dl Creatinine 1.10 mg/dl Est Creatinine Clear Calc Drug Dose 91.5 ml/min Estimated GFR () 82.9 Estimated GFR (Non- 71.6 BUN/Creatinine Ratio 19.4 Random Glucose 181 mg/dl Calcium Level 9.2 mg/dl Total Bilirubin 0.7 mg/dl Aspartate Amino Transf (AST/SGOT) 6 U/L Alanine Aminotransferase (ALT/SGPT) 22 U/L Alkaline Phosphatase 121 U/L Troponin I < 0.015 ng/ml C-Reactive Protein 15.60 mg/dl Total Protein 8.1 gm/dl Albumin 3.2 gm/dl Globulin 4.9 gm/dl Albumin/Globulin Ratio 0.7 Bedside Lactic Acid Venous 1.50 mmol/L Bedside Glucose 149 mg/dl Test 09/05/16 20:20 09/06/16 05:00 09/06/16 07:30 Bedside Glucose 139 mg/dl 139 mg/dl White Blood Count 8.44 K/uL Red Blood Count 3.96 M/uL Hemoglobin 11.3 g/dL Hematocrit 34.4 % Mean Corpuscular Volume 86.9 fL Mean Corpuscular Hemoglobin 28.5 pg Mean Corpuscular Hemoglobin Concent 32.8 g/dl Platelet Count 184 K/uL Mean Platelet Volume 8.9 fL Neutrophils (%) (Auto) 75.3 % Lymphocytes (%) (Auto) 12.2 % Monocytes (%) (Auto) 9.4 % Eosinophils (%) (Auto) 2.4 % Basophils (%) (Auto) 0.2 % Neutrophils # (Auto) 6.36 K/uL Lymphocytes # (Auto) 1.03 K/uL Monocytes # (Auto) 0.79 K/uL Eosinophils # (Auto) 0.20 K/uL Basophils # (Auto) 0.02 K/uL RDW Standard Deviation 45.8 fL RDW Coefficient of Variation 14.3 % Immature Granulocyte % (Auto) 0.5 % Immature Granulocyte # (Auto) 0.04 K/uL Sodium Level 142 mmol/L Potassium Level 3.7 mmol/L Chloride Level 107 mmol/L Carbon Dioxide Level 28 mmol/L Anion Gap 7.0 mmol/L Blood Urea Nitrogen 20 mg/dl Creatinine 0.99 mg/dl Est Creatinine Clear Calc Drug Dose 101.7 ml/min Estimated GFR () 94.2 Estimated GFR (Non- 81.3 BUN/Creatinine Ratio 20.5 Random Glucose 116 mg/dl Estimated Average Glucose 137 mg/dl Hemoglobin A1c 6.4 % Calcium Level 8.9 mg/dl Assessment and Plan 1) UTI - IV Ertapenem, WBCs normalized. 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
[2016-09-06] MEDS: SODIUM CHLORIDE 0.9% 1000ML 1,000 ML IV SCH (13:58)
--- NOTE | 2016-09-06 14:32 | Urology Consultation ---
History General Date of Service: Sep 06, 2016. Primary Care Physician: Reza Ocasio Jr,D.O. History of Present Illness Poorly compliant 61 yo male who I have last seen in Jun 2016, admitted with UTI. He has been seen by Dr. Ruggiero in past and his care was transferred to myself in May 2016. He has voiding issues including incontinence for which he has been managed with a chronic indwelling robert. As had been previously discussed with him this was not ideal and the plan was to evaluate with cystoscopy and urodynamics and switch to clean intermittent catheterization at the very least, but he has missed several appointments. He is now admitted for difficulties with UTI. He notes worsening malaise, chills, SP and lower abdominal pain and nausea / emesis for a couple of days prior to admission. Inpatient and outpatient notes reviewed. His UC&S shows a number of organisms, consistent with his chronic robert and colonization. His son is present in the room today, also his POA. Patient notes his pain has resolved and he is anxious to go home with his robert in place. His CT results are reviewed - stones noted up to 7 mm on his left side. Images reviewed with patient and family. HPI - Stones Size: 7mm Location: left, kidney Imaging Imaging: CT Laboratory Last 24 Hours Test 09/05/16 13:42 09/05/16 13:59 09/05/16 14:09 09/05/16 17:50 Urine Color YELLOW Urine Appearance SL CLOUDY Urine pH 5.5 Urine Specific [place] >= 1.030 Urine Protein 1+ Urine Glucose (UA) NEG Urine Ketones 3+ Urine Occult Blood 3+ Urine Nitrite NEG Urine Bilirubin NEG Urine Urobilinogen NEG Urine Leukocyte Esterase TRACE Urine RBC >30 /hpf Urine WBC >30 /hpf Urine Epithelial Cells 0-5 /lpf Urine Bacteria 1+ Urine Hyaline Casts 1-5 /lpf White Blood Count 11.35 K/uL Red Blood Count 4.37 M/uL Hemoglobin 12.7 g/dL Hematocrit 37.7 % Mean Corpuscular Volume 86.3 fL Mean Corpuscular Hemoglobin 29.1 pg Mean Corpuscular Hemoglobin Concent 33.7 g/dl Platelet Count 190 K/uL Mean Platelet Volume 9.3 fL Neutrophils (%) (Auto) 87.9 % Lymphocytes (%) (Auto) 5.8 % Monocytes (%) (Auto) 5.7 % Eosinophils (%) (Auto) 0.2 % Basophils (%) (Auto) 0.1 % Neutrophils # (Auto) 9.98 K/uL Lymphocytes # (Auto) 0.66 K/uL Monocytes # (Auto) 0.65 K/uL Eosinophils # (Auto) 0.02 K/uL Basophils # (Auto) 0.01 K/uL RDW Standard Deviation 44.3 fL RDW Coefficient of Variation 14.1 % Immature Granulocyte % (Auto) 0.3 % Immature Granulocyte # (Auto) 0.03 K/uL Erythrocyte Sedimentation Rate > 90 mm/hr Prothrombin Time 11.5 SECONDS Prothromb Time International Ratio 1.1 Activated Partial Thromboplast Time 26.9 SECONDS Partial Thromboplastin Ratio 1.0 Sodium Level 140 mmol/L Potassium Level 4.2 mmol/L Chloride Level 104 mmol/L Carbon Dioxide Level 26 mmol/L Anion Gap 10.0 mmol/L Blood Urea Nitrogen 21 mg/dl Creatinine 1.10 mg/dl Est Creatinine Clear Calc Drug Dose 91.5 ml/min Estimated GFR () 82.9 Estimated GFR (Non- 71.6 BUN/Creatinine Ratio 19.4 Random Glucose 181 mg/dl Calcium Level 9.2 mg/dl Total Bilirubin 0.7 mg/dl Aspartate Amino Transf (AST/SGOT) 6 U/L Alanine Aminotransferase (ALT/SGPT) 22 U/L Alkaline Phosphatase 121 U/L Troponin I < 0.015 ng/ml C-Reactive Protein 15.60 mg/dl Total Protein 8.1 gm/dl Albumin 3.2 gm/dl Globulin 4.9 gm/dl Albumin/Globulin Ratio 0.7 Bedside Lactic Acid Venous 1.50 mmol/L Bedside Glucose 149 mg/dl Test 09/05/16 20:20 09/06/16 05:00 09/06/16 07:30 09/06/16 11:20 Bedside Glucose 139 mg/dl 139 mg/dl 124 mg/dl White Blood Count 8.44 K/uL Red Blood Count 3.96 M/uL Hemoglobin 11.3 g/dL Hematocrit 34.4 % Mean Corpuscular Volume 86.9 fL Mean Corpuscular Hemoglobin 28.5 pg Mean Corpuscular Hemoglobin Concent 32.8 g/dl Platelet Count 184 K/uL Mean Platelet Volume 8.9 fL Neutrophils (%) (Auto) 75.3 % Lymphocytes (%) (Auto) 12.2 % Monocytes (%) (Auto) 9.4 % Eosinophils (%) (Auto) 2.4 % Basophils (%) (Auto) 0.2 % Neutrophils # (Auto) 6.36 K/uL Lymphocytes # (Auto) 1.03 K/uL Monocytes # (Auto) 0.79 K/uL Eosinophils # (Auto) 0.20 K/uL Basophils # (Auto) 0.02 K/uL RDW Standard Deviation 45.8 fL RDW Coefficient of Variation 14.3 % Immature Granulocyte % (Auto) 0.5 % Immature Granulocyte # (Auto) 0.04 K/uL Sodium Level 142 mmol/L Potassium Level 3.7 mmol/L Chloride Level 107 mmol/L Carbon Dioxide Level 28 mmol/L Anion Gap 7.0 mmol/L Blood Urea Nitrogen 20 mg/dl Creatinine 0.99 mg/dl Est Creatinine Clear Calc Drug Dose 101.7 ml/min Estimated GFR () 94.2 Estimated GFR (Non- 81.3 BUN/Creatinine Ratio 20.5 Random Glucose 116 mg/dl Estimated Average Glucose 137 mg/dl Hemoglobin A1c 6.4 % Calcium Level 8.9 mg/dl Problem List Medical Problems: (1) Abdominal pain Status: Acute (2) Back pain Status: Acute (3) Soni infection Status: Acute (4) Elevated lactic acid level Status: Acute (5) Fall Status: Acute (6) Head trauma Status: Acute (7) Lower abdominal pain Status: Acute (8) Neck pain Status: Acute (9) Neurogenic bladder Status: Acute (10) Pyelonephritis Status: Acute (11) Sepsis Status: Acute (12) Skin breakdown Status: Acute (13) Spinal stenosis Status: Acute (14) Urinary tract infection Status: Acute (15) UTI (urinary tract infection) Status: Acute Past History arthritis, BPH, coronary artery disease, diabetes, GERD, gout, hypertension, kidney stones, urinary tract infection, other (Parkinsonism, polyneuropathy, neurogenic bladder, peptic ulcer disease, PE) Past Surgical History: appendectomy, tonsillectomy, other (hernia repair, back surgery) Family History Cancer Diabetes mellitus FH: heart disease Hypertension Social History Hx Tobacco Use In Past Year?: No Smoking: non-smoker Marital status: single Housing status: lives alone Occupation status: retired Immunizations History of Tetanus Vaccine?: probably over 10 yrs ago History of Pneumococcal: apr 2004 History of Hepatitis B Vaccine: 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 History of MDRO No Allergies Coded Allergies: Penicillins (Verified Allergy, Severe, 09/05/16) SEVERE RXN PER PT Cephalosporins (Verified Allergy, Unknown, 09/05/16) Sulfamethoxazole w/Trimethoprim (Verified Allergy, Unknown, ., 09/05/16) TAKES LASIX AT HOME Medications Home Medications: Home Meds and Scripts Medications Dose Route/Sig Max Daily Dose Days Date Category Dose Instructions Lovenox (Enoxaparin Sodium) 150 Mg/1 Ml Inj 1 Ml SC BID 09/05/16 Reported Oxycodone/Acetaminophen 5MG/325MG (Oxycodone/Acetaminophen) 1 Tab Tab 1-2 Tabs PO Q4 30 08/15/16 Rx Zolpidem Tartrate 10 Mg Tab 10 Mg PO HS PRN 08/12/16 Reported Tamsulosin HCl 0.4 Mg Cap 0.4 Mg PO QAM 08/12/16 Reported Prozac (Fluoxetine HCl) 40 Mg Cap 40 Mg PO QAM 08/12/16 Reported Colcrys (Colchicine) 0.6 Mg Tab 0.6 Mg PO DAILY PRN 08/12/16 Reported Avodart (Dutasteride) 0.5 Mg Cap 0.5 Mg PO DAILY 08/12/16 Reported Vitamin C (Ascorbic Acid) 500 Mg Tab 1 Tabs PO QAM 05/14/16 Reported Iron (Ferrous Sulfate) 325 Mg Tab 1 Tab PO DAILY 05/14/16 Reported Lantus (Insulin Glargine) 100 Unit/Ml Inj 45 Units SC BID 05/14/16 Reported Novolog Flexpen (Insulin Aspart) 100 Units/Ml Inj 10 Units SC AC 02/28/16 Rx Nystop (Nystatin) 45 Appln/15 Gm Powd 1 Appln EXT TID 10 02/28/16 Rx apply in between skin folds on lower abdomen for 10 days Sinemet Cr 50MG/200MG (Carbidopa/Levodopa) Tabcr 1 Tab PO BID 02/24/16 Reported Amantadine HCl 100 Mg Cap 100 Mg PO BID 02/24/16 Reported Lopressor (Metoprolol Tartrate) 25 Mg Tab 25 Mg PO BID 02/24/16 Reported Lyrica (Pregabalin) 300 Mg Cap 300 Mg PO BID 02/24/16 Reported Allopurinol 100 Mg Tab 100 Mg PO DAILY 02/24/16 Reported Prilosec (Omeprazole) 40 Mg Cap 40 Mg PO BID 02/24/16 Reported Inpatient Medications: Current Inpatient Medications Medications (Trade) Dose Ordered Sig/Apryl Route Start Time Stop Time Status Last Admin Dose Admin Ioversol (Optiray 320) 125 ml UD PRN IV 09/05/16 13:15 09/09/16 13:14 Acetaminophen (Tylenol Tab) 650 mg Q4H PRN PO 09/05/16 17:00 10/05/16 16:59 Ondansetron HCl (Zofran Inj) 4 mg Q6H PRN IV 09/05/16 17:00 10/05/16 16:59 Insulin Aspart (novoLOG ASPART) SLIDING SCALE If C... ACHS SC 09/05/16 21:00 10/05/16 20:59 09/06/16 08:28 3 UNITS Glucose (Glucose 40% Gel) 15-30 GRAMS 15 GRAMS... UD PRN PO 09/05/16 17:00 10/05/16 16:59 Glucose (Glucose Chew Tab) 4-8 Tablets 4 Tabl... UD PRN PO 09/05/16 17:00 10/05/16 16:59 Dextrose (Dextrose 50% 50ML Syringe) 25-50ML OF 50% DW IV FOR... UD PRN IV 09/05/16 17:00 10/05/16 16:59 Glucagon (Glucagon Inj) 1 mg UD PRN SQ 09/05/16 17:00 10/05/16 16:59 Allopurinol (Zyloprim Tab) 100 mg DAILY PO 09/06/16 08:00 10/06/16 08:59 09/06/16 08:17 100 MG Amantadine HCl (Symmetrel Cap) 100 mg BID PO 09/05/16 20:00 10/05/16 20:59 09/06/16 08:15 100 MG Ascorbic Acid (Vitamin C Tab) 500 mg QAM PO 09/06/16 08:00 10/06/16 08:59 09/06/16 08:16 500 MG Carbidopa/Levodopa (Sinemet Cr 50/ 200MG Tab) 1 tab BID PO 09/05/16 20:00 10/05/16 20:59 09/06/16 08:15 1 TAB Enoxaparin Sodium (Lovenox Inj) 120 mg BID SC 09/05/16 20:00 10/05/16 20:59 09/06/16 08:17 120 MG Fluoxetine HCl (Prozac Cap) 40 mg QAM PO 09/06/16 08:00 10/06/16 08:59 09/06/16 08:16 40 MG Insulin Glargine (Lantus Solostar Pen) 45 unit BID SC 09/05/16 20:00 10/05/16 20:59 09/06/16 08:26 45 UNIT Metoprolol Tartrate (Lopressor Tab) 25 mg BID PO 09/05/16 20:00 10/05/16 20:59 09/06/16 08:16 25 MG Nystatin (Mycostatin Powder) 1 appln TID EXT 09/05/16 20:00 10/05/16 20:59 09/06/16 08:29 1 APPLN Oxycodone/ Acetaminophen (Percocet 5-325mg Tab) 1 tab Q4H PRN PO 09/05/16 20:00 09/19/16 19:59 09/05/16 19:36 1 TAB Pregabalin (Lyrica Cap) 300 mg BID PO 09/05/16 20:00 10/05/16 20:59 09/06/16 08:35 300 MG Tamsulosin HCl (Flomax Cap) 0.4 mg QAM PO 09/06/16 08:00 10/06/16 08:59 09/06/16 08:17 0.4 MG Zolpidem Tartrate (Ambien Tab) 10 mg HS PRN PO 09/05/16 17:15 10/05/16 17:14 Miscellaneous Information (Order Awaiting Action) 1 ea QS N/A 09/06/16 00:00 10/06/16 00:00 Ferrous Sulfate (Feosol Tab) 325 mg DAILY PO 09/06/16 08:00 10/06/16 08:59 09/06/16 08:16 325 MG Pantoprazole Sodium 40 mg 40 mg BID PO 09/05/16 20:00 10/05/16 20:59 09/06/16 08:15 40 MG Ertapenem/Sodium Chloride (Invanz Iv/Nss Ad-Van 50ml) 50 ml @ 120 mls/hr Q24H IV 09/06/16 17:00 09/16/16 16:59 Morphine Sulfate 2 mg 2 mg Q2HWA PRN IV 09/05/16 18:00 09/19/16 17:59 Sodium Chloride (Nss 1000ml) 1,000 ml @ 50 mls/hr Q20H IV 09/05/16 18:00 10/05/16 17:59 09/05/16 21:04 50 MLS/HR Review of Systems Review of Systems Constitutional: + fever, No chills Eyes: No double vision, No eye pain Neurological: No passing out Endocrine: + tired/sluggish Gastrointestinal: + abdominal pain, + nausea, + vomiting Cardiovascular: No angina, No irregular heartbeat Respiratory: No coughing up blood Skin: No boils Musculoskeletal: + arthritis Blood / Lymphatic: No bruise easily Ears / Nose / Throat: No hearing loss, No hoarse voice, No sinus Psychologic / Mental: No difficulty sleeping, No trouble remembering Male : + infections, + see HPI, + urinary retention Physical Exam Vital Signs: Vital Signs Past 12 Hours Date Time Temp Pulse Resp B/P Pulse Ox O2 Delivery O2 Flow Rate FiO2 09/06/16 08:30 95 Room Air 09/06/16 07:22 36.5 84 18 143/75 95 Room Air Physical Exam: General Appearance: no apparent distress, + obese ENT: hearing grossly normal Neck: supple, no adenopathy Respiratory/Chest: no respiratory distress, no accessory muscle use Cardiovascular: no JVD Gastrointestinal: Abdomen: normal abdomen Bladder: normal bladder Renal: normal renal Liver: normal liver Spleen: normal spleen Extremities: non-tender Neurologic/Psychiatric: alert Skin: normal color Assessment & Plan Assessment & Plan A/P 61 yo male with improved UTI. As had been previously discussed with the patient, a chronic robert is the least desirable option for the management of his voiding symptoms, for reasons which include his current difficulties with UTI. He reports he remains on maximal medical therapy with dutasteride and tamsulosin. As noted, the plan previously was to evaluate with cystoscopy and UDS to determine if he was a candidate for TURP and then try to allow him to void normally without the need for a robert. Ideally this would improve his QOL and his risk for infection. He reports he is now interested in proceeding with the evaluation as previously planned. Will attempt to reschedule for evaluate in office as previously. OK for Rx for UTI x 1 week for complex UTI as outpatient. Thank you for allowing us to participate in this patient's care. Please recall as needed.
[2016-09-06 15:37] VITALS: BP 131/70; PULSE 83; TEMP 36.6; O2SAT 95
[2016-09-06] MEDS: MoRPHine SULFATE 2 MG/ML CARP IV PRN ×2 (15:57→18:17)
[2016-09-06 16:00] VITALS: O2SAT 95
[2016-09-06] MEDS ORDERED: ERTAPENEM IV 1 GM in SODIUM CHLOR 0.9% AD-VAN 50ML 50 ML IV SCH (17:00)
[2016-09-06] MEDS: OXYCODONE/ACETAMINOPHEN 5-325 TAB PO PRN (17:31)
[2016-09-06 23:39] VITALS: BP 144/84; PULSE 71; TEMP 36.2; O2SAT 96
[2016-09-07 05:32] LABS: BASO % 0.3 %; BASO ABS # 0.02 K/uL (0-0.2); COMPLETE YES; EOS % 2.5 %; IG% 0.3 %; LYMPH % 16.7 %; LYMPH ABS # 1.14 K/uL (1.2-3.4); MEAN CELL VOLUME 89.9 fL (80-100); MEAN CORPUSCULAR HEMOGLOBIN 28.6 pg (25-34); MEAN CORPUSCULAR HGB CONC 31.8 g/dl (32-36); MEAN PLATELET VOLUME 9.2 fL (7.4-10.4); MONO % 9.2 %; PLATELET COUNT 191 K/uL (130-400); RED BLOOD COUNT 3.78 M/uL (4.7-6.1); WHITE BLOOD COUNT 6.83 K/uL (4.8-10.8)
[2016-09-07 06:02] LABS: BUN/CREATININE RATIO 16.5 (10-20); CALCIUM 8.5 mg/dl (8.5-10.1); CREATININE 1.2 mg/dl (0.60-1.40); POTASSIUM 3.7 mmol/L (3.5-5.1)
[2016-09-07 07:19] VITALS: BP 129/77; PULSE 61; TEMP 36.2; O2SAT 98
[2016-09-07] MEDS: PREGABALIN 150 MG CAP PO SCH (08:56)
[2016-09-07] MEDS: CARBIDOPA/LEVODOPA 50/200MG EXT REL TAB PO SCH (08:56)
[2016-09-07] MEDS: ALLOPURINOL 100 MG TAB PO SCH (08:56)
[2016-09-07] MEDS: FERROUS SULFATE 325 MG TAB PO SCH (08:56)
[2016-09-07] MEDS: AMANTADINE HCL 100 MG CAP PO SCH (08:56)
[2016-09-07] MEDS: PANTOprazole SOD 40 MG TAB PO SCH (08:57)
[2016-09-07] MEDS: TAMSULOSIN HCL 0.4 MG CAP PO SCH (08:57)
[2016-09-07] MEDS: FLUOXETINE HCL 20 MG CAP PO SCH (08:57)
[2016-09-07] MEDS: ASCORBIC ACID 500 MG TAB PO SCH (08:57)
[2016-09-07] MEDS: METOPROLOL TARTRATE 25 MG TAB PO SCH (08:58)
[2016-09-07] MEDS: AVODART: ORDER AWAITING ACTION SCH (08:58)
[2016-09-07] MEDS: NYSTATIN POWDER 15GM BTL EXT SCH ×2 (08:58→14:28)
[2016-09-07] MEDS: ENOXAPARIN 120 MG/0.8 ML SYR SC SCH (08:59)
[2016-09-07 09:00] VITALS: O2SAT 98
[2016-09-07] MEDS: INSULIN ASPART 100 UNITS/ML 3 ML PEN SC SCH ×2 (09:02→12:48)
[2016-09-07] MEDS: INSULIN GLARGINE SOLOSTAR 100 UNITS/ML 3 ML PEN SC SCH (09:03)
[2016-09-07] MEDS: SODIUM CHLORIDE 0.9% 1000ML 1,000 ML IV SCH (10:46)
[2016-09-07] MEDS ORDERED: LEVO1TAB35 PO (13:17)
--- NOTE | 2016-09-07 13:22 | Discharge Instructions ---
Discharge Instructions Date of Service Sep 07, 2016. Admission Reason for Admission: Urinary Tract Infection, Weakness Discharge Discharge Diagnosis / Problem: Complicated UTI (catheter-related)/Parkinsons disease. Discharge Goals Goal(s): Decrease discomfort, Improve disease control Activity Recommendations Activity Limitations: resume your previous activity . Instructions / Follow-Up Instructions / Follow-Up PCP in 5-7 days. Urology, Dr. Case - call office to schedule a follow-up appointment. Current Hospital Diet Patient's current hospital diet: Diabetes Type 2 Diet Discharge Diet Recommended Diet: Diabetes Type 2 Diet Pending Studies Studies pending at discharge: yes List of pending studies: Final results of blood culture x2. At time of discharge there was no growth x2. Laboratory Results Last 24 Hours Test 09/06/16 13:45 09/06/16 16:14 09/06/16 19:50 09/07/16 04:50 Heparin Anti-Xa Act, Low Molec Wt 0.53 IU/ML Bedside Glucose 117 mg/dl 134 mg/dl White Blood Count 6.83 K/uL Red Blood Count 3.78 M/uL Hemoglobin 10.8 g/dL Hematocrit 34.0 % Mean Corpuscular Volume 89.9 fL Mean Corpuscular Hemoglobin 28.6 pg Mean Corpuscular Hemoglobin Concent 31.8 g/dl Platelet Count 191 K/uL Mean Platelet Volume 9.2 fL Neutrophils (%) (Auto) 71.0 % Lymphocytes (%) (Auto) 16.7 % Monocytes (%) (Auto) 9.2 % Eosinophils (%) (Auto) 2.5 % Basophils (%) (Auto) 0.3 % Neutrophils # (Auto) 4.85 K/uL Lymphocytes # (Auto) 1.14 K/uL Monocytes # (Auto) 0.63 K/uL Eosinophils # (Auto) 0.17 K/uL Basophils # (Auto) 0.02 K/uL RDW Standard Deviation 47.4 fL RDW Coefficient of Variation 14.4 % Immature Granulocyte % (Auto) 0.3 % Immature Granulocyte # (Auto) 0.02 K/uL Sodium Level 142 mmol/L Potassium Level 3.7 mmol/L Chloride Level 106 mmol/L Carbon Dioxide Level 28 mmol/L Anion Gap 8.0 mmol/L Blood Urea Nitrogen 20 mg/dl Creatinine 1.20 mg/dl Est Creatinine Clear Calc Drug Dose 83.9 ml/min Estimated GFR () 74.7 Estimated GFR (Non- 64.4 BUN/Creatinine Ratio 16.5 Random Glucose 101 mg/dl Calcium Level 8.5 mg/dl Test 09/07/16 07:13 09/07/16 11:16 Bedside Glucose 106 mg/dl 109 mg/dl Hemoglobin A1c Test 09/06/16 05:00 Range/Units Estimated Average Glucose 137 mg/dl Hemoglobin A1c 6.4 H 4.5-5.6 % Medical Emergencies . Who to Call and When: Medical Emergencies: If at any time you feel your situation is an emergency, please call 911 immediately. . Non-Emergent Contact Non-Emergency issues call your: Primary Care Provider . . "Provider Documentation" section prepared by Velasquez Romo. VTE Core Measure Inpt VTE Proph given/why not?: Enoxaparin (Lovenox)SQ
[2016-09-07] MEDS ORDERED: ERTAPENEM IV 1 GM in SODIUM CHLOR 0.9% AD-VAN 50ML 50 ML IV SCH (14:00)
[2016-09-07 14:58] VITALS: BP 129/77; PULSE 61; TEMP 36.2; O2SAT 98
[2016-09-07 15:47] VITALS: BP 132/77; PULSE 69; TEMP 36.3; O2SAT 99
--- NOTE | 2016-09-07 19:26 | Discharge Summary ---
Discharge Summary Date of Service Sep 07, 2016. Discharge Summary Admission Date: Sep 05, 2016 at 17:00 Discharge Date: Sep 07, 2016 Discharge Disposition: Home Principal Diagnosis: UTI complicated. Problems/Secondary Diagnoses: Parkinson's disease. 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 Consultations: Urology, Dr. Case. Medication Reconciliation New Medications: Levofloxacin (Levaquin) 750 Mg Tab 750 MG PO DAILY for 7 Days, #7 TAB NS Continued Medications: Allopurinol (Allopurinol) 100 Mg Tab 100 MG PO DAILY Amantadine HCl (Amantadine HCl) 100 Mg Cap 100 MG PO BID Ascorbic Acid (Vitamin C) 500 Mg Tab 1 TABS PO QAM Carbidopa/Levodopa (Sinemet Cr 50MG/200MG) Tabcr 1 TAB PO BID Colchicine (Colcrys) 0.6 Mg Tab 0.6 MG PO DAILY PRN for PRN Dutasteride (Avodart) 0.5 Mg Cap 0.5 MG PO DAILY, CAP Enoxaparin (Lovenox) 150 Mg/1 Ml Inj 1 ML SC BID Ferrous Sulfate (Iron) 325 Mg Tab 1 TAB PO DAILY Fluoxetine (Prozac) 40 Mg Cap 40 MG PO QAM, CAP Insulin Aspart (Novolog Flexpen) 100 Units/Ml Inj 10 UNITS SC AC, #1 BOX 1 Refill Insulin Glargine (Lantus) 100 Unit/Ml Inj 45 UNITS SC BID, VIAL Metoprolol Tartrate (Lopressor) 25 Mg Tab 25 MG PO BID Nystatin (Nystop) 45 Appln/15 Gm Powd 1 APPLN EXT TID for 10 Days, #1 1 Refill apply in between skin folds on lower abdomen for 10 days Omeprazole (Prilosec) 40 Mg Cap 40 MG PO BID Oxycodone/Acetaminophen 5MG/325MG (Oxycodone/Acetaminophen 5MG/325MG) 1 Tab Tab 1-2 TABS PO Q4 for Pain for 30 Days Pregabalin (Lyrica) 300 Mg Cap 300 MG PO BID Tamsulosin HCl (Tamsulosin HCl) 0.4 Mg Cap 0.4 MG PO QAM Zolpidem Tartrate (Zolpidem Tartrate) 10 Mg Tab 10 MG PO HS PRN for Sleep, TAB Discharge Exam A 10 system review was performed and all were negative. GEN: Awake, alert, and oriented x 3. Not in acute distress HEENT: Tm's intact, no inflammation, EOMI, PERRLA, MMM Neck: Soft, supple Lungs: CTA b/l, no r/r/w Heart: REG, nrl S1S2 without murmurs, rubs or gallops Abdomen: Soft, NT, ND, + BS EXT: No C/C/E NEURO: CN's II-XII grossly intact, non-focal, + muscle rigidity Skin: warm, dry, no rashes PSYCH: pleasant, cooperative. Hospital Course Patient admitted with UTI cath associated. He was given IV Ertapenem. Cultures grew 3 different organisms, none of which were in large amounts. He remained afebrile. Home meds were continued. Urologist discussed surgical options which may be able to afford D/Cing chronic cath. This wwill be discussed further as outpatient. the patient was feeling well on discharge. 1) UTI - IV Ertapenem , WBCs normalized. 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 Discharge Instructions Please refer to the electronic Patient Visit Report (Discharge Instructions) for additional information. Follow-Up PCP in 5-7 days UrologyDr. Case - call office to set up a follow up appointment.
--- NOTE | 2016-09-24 11:17 | Medical Consult ---
Consultation Note Date of Service Sep 24, 2016. Consultation Note Patient was discharged prior to ability to perform consultation. Therefore no ID consult was performed.
[2016-10-06] MEDS ORDERED: DXY100 PO (13:15)
[2016-11-14] MEDS ORDERED: LPR25 PO (10:42)
[2016-11-14] MEDS ORDERED: LVNIS150 SQ (10:42)
[2016-11-14] MEDS ORDERED: IMDSR30 PO (10:42)
[2016-11-14] MEDS ORDERED: ASPEC81 PO (10:42)
[2016-11-14] MEDS ORDERED: CARV3.122 PO (11:15)
[2016-11-14] MEDS ORDERED: NITR-5 PO (11:15)
[2017-01-02] MEDS ORDERED: FURO40TA3 PO (11:45)
[2017-01-02] MEDS ORDERED: INSDGI SC (19:52)
[2017-01-23] MEDS ORDERED: PREG300C PO (12:38)
[2017-01-23] MEDS ORDERED: SYM100 PO (12:38)
[2017-01-23] MEDS ORDERED: ALL100 PO (12:38)
[2017-01-23] MEDS ORDERED: CARB50TA3 PO (12:44)
[2017-01-23] MEDS ORDERED: SIMV20TA2 PO (17:27)
[2017-03-12] MEDS ORDERED: PRT40 PO (10:50)
[2017-03-12] MEDS ORDERED: SPIR25TA PO (10:50)
[2017-03-12] MEDS ORDERED: VERA1TAB52 PO (10:50)
[2017-03-12] MEDS ORDERED: INSDGI SC (10:50)
[2017-03-12] MEDS ORDERED: ZNT150 PO (10:50)
[2017-03-12] MEDS ORDERED: FURO80TA63 PO (10:50)
[2017-03-12] MEDS ORDERED: LVNIS150 SC (10:50)
[2017-04-15] MEDS ORDERED: FURO80TA63 PO (23:28)
[2017-04-15] MEDS ORDERED: INSDGI SC (23:32)
[2017-04-15] MEDS ORDERED: SPIR25TA PO (23:35)
[2017-04-15] MEDS ORDERED: ZNTT/150 PO (23:44)
[2017-04-15] MEDS ORDERED: NVLGI7030 SC (23:46)
== END 2016-09-07 16:50 | disposition home health service (06) | DRG 690 ==
LOC: ENRESERVTM → ENRESERVDT → EDBD 11:41 → C.EDC 11:42 → C.4E 17:00
PROVIDERS: ADMIT Hospitalist; ATTEND Hospitalist
DX: N39.0 Urinary tract infection, site not specified (principal); I50.30 Unspecified diastolic (congestive) heart failure; T83.511A Infection and inflammatory reaction due to indwelling urethral catheter, initial encounter; Y73.8 Miscellaneous gastroenterology and urology devices associated with adverse incidents, not elsewhere classified; K21.9 Gastro-esophageal reflux disease without esophagitis; G20 Parkinson's disease; M10.9 Gout, unspecified; I25.10 Atherosclerotic heart disease of native coronary artery without angina pectoris; E78.00 Pure hypercholesterolemia, unspecified; Z66 Do not resuscitate; N40.0 Benign prostatic hyperplasia without lower urinary tract symptoms; I11.0 Hypertensive heart disease with heart failure; E11.9 Type 2 diabetes mellitus without complications; B37.9 Candidiasis, unspecified; L98.9 Disorder of the skin and subcutaneous tissue, unspecified; Z79.01 Long term (current) use of anticoagulants; Z79.899 Other long term (current) drug therapy; Z79.4 Long term (current) use of insulin; Z79.891 Long term (current) use of opiate analgesic; Z86.718 Personal history of other venous thrombosis and embolism; Z86.711 Personal history of pulmonary embolism

== ENCOUNTER → 2016-09-23 | Outpatient (CLI) | payer OTHER ==
[~2016-09-23] MED LIST changes: +ALL100 PO; +AMLO-114 PO; +ASCO500T3 PO; +ASPEC81 PO; +CARB50TA3 PO; +CARV3.12 PO; +CARV3.122 PO; +COLC0.6T54 PO; +CRG3125 PO; +DOCU-94 PO; +DTRSR/2 PO; +DUTA1CAP25 PO; +DXY100 PO; +ENOX1INJ14 SC; +FURO40TA3 PO; +FURO80TA63 PO; +IMDSR30 PO; +INSDGI SC; +ISOS-11 PO; +LOSA50TA6 PO; +LSN40 PO; +LVNIS120 SC; +LVNIS150 SC; +METO25TA56 PO; +MIRA1TAB3 PO; +NITR-5 PO; +NVLGI/PEN SQ; +NVLGI7030 SC; +OXYC-57 PO; +PREG1CAP34 PO; +PREG300C PO; +PRLSR20 PO; +PRT40 PO; +SENN1TAB77 PO; +SIMV20TA2 PO; +SPIR25TA PO; +SPIR25TA89 PO; +SYM100 PO; +TAMS0.4C38 PO; +VERA1TAB52 PO; +ZNT150 PO; +ZNTT/150 PO; +ZOLP10TA PO
== END | disposition home or self-care (01) ==
LOC: C.LABSPEC 15:00
DX: R30.0 Dysuria (principal)

== ENCOUNTER 2016-10-03 09:56 | Inpatient (IN) | payer OTHER ==
[~2016-10-03] VITALS: Ht 175.3 cm; Wt 123.5 kg
[~2016-10-03 09:56] MED LIST changes: -ALL100 PO; -AMLO-114 PO; -ASCO500T3 PO; -ASPEC81 PO; -CARB50TA3 PO; -CARV3.12 PO; -CARV3.122 PO; -COLC0.6T54 PO; -CRG3125 PO; -DOCU-94 PO; -DTRSR/2 PO; -DUTA1CAP25 PO; -DXY100 PO; -ENOX1INJ14 SC; -FURO40TA3 PO; -FURO80TA63 PO; -IMDSR30 PO; -INSDGI SC; -ISOS-11 PO; -LOSA50TA6 PO; -LSN40 PO; -LVNIS120 SC; -LVNIS150 SQ; -METO25TA56 PO; -MIRA1TAB3 PO; -NITR-5 PO; -NVLGI/PEN SQ; -NVLGI7030 SC; -OXYC-57 PO; -PREG1CAP34 PO; -PREG300C PO; -PRLSR20 PO; -PRT40 PO; -SENN1TAB77 PO; -SIMV20TA2 PO; -SPIR25TA PO; -SPIR25TA89 PO; -SYM100 PO; -TAMS0.4C38 PO; -VERA1TAB52 PO; -ZNT150 PO; -ZNTT/150 PO; -ZOLP10TA PO
[2016-10-03] MEDS ORDERED: ONDANSETRON INJ 2 MG/ML 2 ML VIAL IV STA (10:07)
[2016-10-03] MEDS ORDERED: SODIUM CHLORIDE 0.9% 1000ML 500 ML IV STA (10:07)
--- NOTE | 2016-10-03 10:21 | EMERGENCY ROOM VISIT NOTE ---
History Report prepared by Tyra: Pam Huang Under the Supervision of: Dr. Rodrigo Recio M.D. First contact with patient: 10:02 Chief Complaint: UNABLE TO VOID Stated Complaint: URINARY RETENTION History of Present Illness The patient is a 61 year old male who presents to the Emergency Room via ALS with complaints of persistent difficulty voiding for the past two days. He currently rates his discomfort as an 8/10 in severity. The patient states that he has a catheter and has noticed a decrease in output over the last two days. He states that he has noticed that his urine has not been going into his bag, but around the bag instead. Per records, the patient was evaluated in the hospital September 05- for similar symptoms. The patient states that the last time his catheter was changed was when he was evaluated in the hospital. He additionally notes that he had a urinary tract infection at that time, and states that he feels as if he has a urinary tract infection today as well. The patient states that he vomited this morning and notes hot and cold flashes. He denies any nausea since he vomited. He states that he sees urology in October and states that after some testing he may be able to have his catheter removed. Source of History: patient, other (records) Onset: two days Position: other (global) Quality: other (difficulty voiding) Timing: other (persistent) Associated Symptoms: + vomiting, No nausea Note: Associated Symptoms: hot and cold flashes Review of Systems See HPI for pertinent positives & negatives. A total of 10 systems reviewed and were otherwise negative. Past Medical & Surgical Medical Problems: (1) Catheter-associated urinary tract infection (2) Diabetes mellitus (3) Dyspnea (4) Gastroesophageal reflux disease (5) Gout (6) Parkinson's disease (7) Pulmonary embolism (8) Syncope (9) Weakness Family History Cancer Diabetes mellitus FH: heart disease Hypertension Social History Smoking Status: Never Smoker Alcohol Use: none Drug Use: none Marital Status: single Housing Status: lives alone Occupation Status: retired Current/Historical Medications Scheduled Allopurinol (Allopurinol), 100 MG PO DAILY Amantadine HCl (Amantadine HCl), 100 MG PO BID Ascorbic Acid (Vitamin C), 1 TABS PO QAM Carbidopa/Levodopa (Sinemet Cr 50MG/200MG), 1 TAB PO BID Dutasteride (Avodart), 0.5 MG PO DAILY Enoxaparin (Lovenox), 1 ML SC BID Ferrous Sulfate (Iron), 1 TAB PO DAILY Fluoxetine (Prozac), 40 MG PO QAM Insulin Aspart (Novolog Flexpen), 10 UNITS SC AC Insulin Glargine (Lantus), 40 UNITS SC BID Metoprolol Tartrate (Lopressor), 25 MG PO BID Nystatin (Nystop), 1 APPLN EXT TID Omeprazole (Prilosec), 40 MG PO BID Oxycodone/Acetaminophen 5MG/325MG (Oxycodone/Acetaminophen 5MG/325MG), 1-2 TABS PO Q4 Pregabalin (Lyrica), 300 MG PO BID Tamsulosin HCl (Tamsulosin HCl), 0.4 MG PO QAM Scheduled PRN Colchicine (Colcrys), 0.6 MG PO DAILY PRN for PRN Zolpidem Tartrate (Zolpidem Tartrate), 10 MG PO HS PRN for Sleep Allergies Coded Allergies: Penicillins (Verified Allergy, Severe, 10/03/16) SEVERE RXN PER PT Cephalosporins (Verified Allergy, Unknown, 10/03/16) Sulfamethoxazole w/Trimethoprim (Verified Allergy, Unknown, ., 10/03/16) TAKES LASIX AT HOME Physical Exam Vital Signs Date Time Temp Pulse Resp B/P Pulse Ox O2 Delivery O2 Flow Rate FiO2 10/03/16 12:25 96 Room Air 10/03/16 12:00 78 20 160/90 96 Room Air 10/03/16 10:03 37.3 102 18 165/125 98 Room Air Physical Exam GENERAL: Patient is in no acute distress. HEENT: No acute trauma, normocephalic atraumatic, mucous membranes moist, no nasal congestion, no scleral icterus. NECK: No stridor, no adenopathy, no meningismus, trachea is midline. LUNGS: Clear to auscultation bilaterally, no wheeze, no rhonchi, breath sounds equal. HEART: Without murmurs gallops or rubs, regular rate and rhythm. ABDOMEN: Tender over the bladder. Wills catheter with minimal drainage, debris noted in the tubing. Soft, bowel sounds positive, no hernias, no peritonitis. GROIN: No cellulitis. EXTREMITIES: No cyanosis or edema, full range of motion of all the joints without pain or difficulty, no signs for acute trauma. NEUROLOGIC: Oriented x 3, no acute motor or sensory deficits, no focal weakness. SKIN: No rash, no jaundice, no diaphoresis. Medical Decision & Procedures Laboratory Results 10/03/16 10:45 Red Blood Count 4.86, Mean Corpuscular Volume 88.9, Mean Corpuscular Hemoglobin 28.4, Mean Corpuscular Hemoglobin Concent 31.9, Mean Platelet Volume 9.7, Neutrophils (%) (Auto) 80.6, Lymphocytes (%) (Auto) 11.9, Monocytes (%) (Auto) 4.9, Eosinophils (%) (Auto) 2.1, Basophils (%) (Auto) 0.2, Neutrophils # (Auto) 7.74, Lymphocytes # (Auto) 1.14, Monocytes # (Auto) 0.47, Eosinophils # (Auto) 0.20, Basophils # (Auto) 0.02 10/03/16 10:45 Test 10/03/16 10:35 10/03/16 10:45 Urine Color YELLOW Urine Appearance CLEAR (CLEAR) Urine pH 6.0 (4.5-7.5) Urine Specific [place] 1.015 (1.000-1.030) Urine Protein TRACE (NEG) Urine Glucose (UA) NEG (NEG) Urine Ketones NEG (NEG) Urine Occult Blood 1+ (NEG) Urine Nitrite POS (NEG) Urine Bilirubin NEG (NEG) Urine Urobilinogen NEG (NEG) Urine Leukocyte Esterase MODERATE (NEG) Urine WBC (Auto) >30 /hpf (0-5) Urine RBC (Auto) 10-30 /hpf (0-4) Urine Hyaline Casts (Auto) 1-5 /lpf (0-5) Urine Epithelial Cells (Auto) 0-5 /lpf (0-5) Urine Bacteria (Auto) 1+ (NEG) Urine Pathogenic Casts /lpf (0) White Blood Count 9.60 K/uL (4.8-10.8) Red Blood Count 4.86 M/uL (4.7-6.1) Hemoglobin 13.8 g/dL (14.0-18.0) Hematocrit 43.2 % (42-52) Mean Corpuscular Volume 88.9 fL (80-100) Mean Corpuscular Hemoglobin 28.4 pg (25-34) Mean Corpuscular Hemoglobin Concent 31.9 g/dl (32-36) Platelet Count 175 K/uL (130-400) Mean Platelet Volume 9.7 fL (7.4-10.4) Neutrophils (%) (Auto) 80.6 % Lymphocytes (%) (Auto) 11.9 % Monocytes (%) (Auto) 4.9 % Eosinophils (%) (Auto) 2.1 % Basophils (%) (Auto) 0.2 % Neutrophils # (Auto) 7.74 K/uL (1.4-6.5) Lymphocytes # (Auto) 1.14 K/uL (1.2-3.4) Monocytes # (Auto) 0.47 K/uL (0.11-0.59) Eosinophils # (Auto) 0.20 K/uL (0-0.5) Basophils # (Auto) 0.02 K/uL (0-0.2) RDW Standard Deviation 44.9 fL (36.4-46.3) RDW Coefficient of Variation 13.7 % (11.5-14.5) Immature Granulocyte % (Auto) 0.3 % Immature Granulocyte # (Auto) 0.03 K/uL (0.00-0.02) Prothrombin Time 11.0 SECONDS (9.0-12.0) Prothromb Time International Ratio 1.0 (0.9-1.1) Anion Gap 8.0 mmol/L (3-11) Est Creatinine Clear Calc Drug Dose 83.6 ml/min Estimated GFR () 74.7 Estimated GFR (Non- 64.4 BUN/Creatinine Ratio 13.5 (10-20) Calcium Level 9.6 mg/dl (8.5-10.1) Total Bilirubin 0.5 mg/dl (0.2-1) Aspartate Amino Transf (AST/SGOT) 9 U/L (15-37) Alanine Aminotransferase (ALT/SGPT) 23 U/L (12-78) Alkaline Phosphatase 140 U/L (45-117) Total Protein 8.0 gm/dl (6.4-8.2) Albumin 3.5 gm/dl (3.4-5.0) Globulin 4.5 gm/dl (2.5-4.0) Albumin/Globulin Ratio 0.8 (0.9-2) Laboratory results reviewed by me. Medications Administered Medications (Trade) Dose Ordered Sig/Apryl Route Start Time Stop Time Status Last Admin Dose Admin Sodium Chloride (Nss 1000ml) 500 ml @ 999 mls/hr Q31M STAT IV 10/03/16 10:07 10/03/16 10:37 DC 10/03/16 10:52 999 MLS/HR Ondansetron HCl (Zofran Inj) 4 mg NOW STAT IV 10/03/16 10:07 10/03/16 10:12 DC 10/03/16 10:54 4 MG Ertapenem (Invanz Iv) 1 gm ONE ONCE IV 10/03/16 12:15 10/03/16 12:16 DC 10/03/16 13:05 1 GM ED Course 1003: The patient was evaluated in room B11B. A complete history and physical exam was performed. 1007: Ordered Zofran Inj 4 mg IV, Sodium Chloride 500 ml @ 999 mls/hr IV. 1211: I reevaluated the patient and he is resting comfortably. I discussed the exam findings with him and I discussed the treatment plan. He verbalized complete understanding and agreement. He will be evaluated for further treatment. 1213: I discussed the patients case with MYNOR Weiss. He is going to evaluate the patient for further treatment. 1215: Ordered Invanz IV 1 gm IV. Medical Decision The patient is a 61 year old male who presents to the ED with complaints of difficulty voiding. Differential diagnoses considered include UTI, malpositioned Wills catheter, malfunctioned Wills catheter, clogged Wills catheter, dehydration, renal failure, electrolyte imbalance. There is no leukocytosis or concerning anemia. No significant electrolyte abnormality, kidney failure or hepatitis. Urinalysis does show evidence for infection, urine culture is pending. The patient had the old Wills cath removed and a new one placed. The urine began to drain and the patient felt improved. The patient received IV saline, he was given IV ertapenem as antibiotic coverage. In the past, he has had somewhat resistant organisms, he also has a lot of allergies preventing the use of certain oral medications. I talked to the patient and case management. I do think IV antibiotics are indicated. Admission/observation is warranted. The on-call hospitalist was consulted. Consults Time Called: 1209 Consulting Physician: MYNOR Weiss Returned Call: 1213 I discussed the patients case with MYNOR Weiss. He is going to evaluate the patient for further treatment. Impression Primary Impression: Complicated UTI (urinary tract infection) Additional Impression: Vomiting Scribe Attestation The scribe's documentation has been prepared under my direction and personally reviewed by me in its entirety. I confirm that the note above accurately reflects all work, treatment, procedures, and medical decision making performed by me. Departure Information Dispostion Being Evaluated By Hospitalist Referrals Reza Ocasio Jr,D.O. (PCP) Problem Qualifiers
[2016-10-03 10:55] LABS: BASO % 0.2 %; BASO ABS # 0.02 K/uL (0-0.2); COMPLETE YES; EOS % 2.1 %; HEMATOCRIT 43.2 % (42-52); IG% 0.3 %; LYMPH % 11.9 %; LYMPH ABS # 1.14 K/uL (1.2-3.4); MEAN CELL VOLUME 88.9 fL (80-100); MEAN CORPUSCULAR HEMOGLOBIN 28.4 pg (25-34); MEAN CORPUSCULAR HGB CONC 31.9 g/dl (32-36); MEAN PLATELET VOLUME 9.7 fL (7.4-10.4); MONO % 4.9 %; NEUT % 80.6 %; PLATELET COUNT 175 K/uL (130-400); RED BLOOD COUNT 4.86 M/uL (4.7-6.1)
[2016-10-03 11:08] LABS: URINE APPEARANCE CLEAR (CLEAR); URINE BILIRUBIN NEG (NEG); URINE COLOR YELLOW; URINE EPITHELIAL CELL AUTO 0-5 /lpf (0-5); URINE NITRITE POS (NEG); URINE SPECIFIC GRAVITY 1.015 (1.000-1.030); UROBILINOGEN NEG (NEG); ZZURINE CULT IF INDIC CATH YES
[2016-10-03 11:14] LABS: BUN/CREATININE RATIO 13.5 (10-20); CALCIUM 9.6 mg/dl (8.5-10.1); CREATININE 1.2 mg/dl (0.60-1.40); POTASSIUM 4.6 mmol/L (3.5-5.1)
[2016-10-03 11:16] LABS: ALB/GLOB RATIO 0.8 (0.9-2)
[2016-10-03 11:28] LABS: MANUAL MICROSCOPIC REQUIRED? NO; REVIEW REQ? YES
[2016-10-03] MEDS ORDERED: ERTAPENEM 1 GM ADDVIAL IV ONE (12:15)
[2016-10-03 12:25] VITALS: O2SAT 96; BMI 40.8
[2016-10-03] MEDS ORDERED: COLCHICINE 0.6 MG TAB PO PRN (12:30)
[2016-10-03] MEDS ORDERED: ACETAMINOPHEN 325 MG TAB PO PRN (12:30)
[2016-10-03] MEDS ORDERED: ZOLPIDEM TARTRATE 10 MG TAB PO PRN (12:30)
[2016-10-03] MEDS ORDERED: OXYCODONE/ACETAMINOPHEN 5-325 TAB PO PRN (12:30)
--- NOTE | 2016-10-03 13:35 | History and Physical ---
History & Physical Date & Time of Service: Oct 03, 2016 at 13:17 Chief Complaint: Urinary Retention Primary Care Physician: Reza Ocasio JrD.O. History of Present Illness Source: patient, family, hospital records 61 yo male with h/o Parkinson's disease and neurogenic bladder with chronic indwelling robert catheter, presents to the ED with suprapubic pain and decreased urine output. He has a long history of UTI, multiple cultures have shown multiple organisms but there have been two cultures + for Provedencia that is resistant to quinolones. He has been treated with Ertapenem in the past. He admits to feeling warm but no documented fevers and he did have a few chills. Appetite normal, no vomiting and he is moving bowel regularly. Parkinson's stable, ambulated with walker, no falls recently. In the ED his labs and vitals were normal. Robert was clogged and so it was changed out, urine sample shows elevated WBC, bacteria and nitrites/LE. Was started on Ertapenem. We were asked to admit because the patient has long allergy list and past cultures showed resistance to quinolones. Past Medical/Surgical History Medical Problems: (1) Diabetes mellitus Status: Chronic (2) Gastroesophageal reflux disease Status: Chronic (3) Gout Status: Chronic (4) Parkinson's disease Status: Chronic (5) Pulmonary embolism Status: Resolved Family History Cancer Diabetes mellitus FH: heart disease Hypertension Social History Smoking Status: Never Smoker Drug Use: none Marital Status: single Housing status: lives alone Occupational Status: retired Immunizations History of Tetanus Vaccine?: probably over 10 yrs ago History of Pneumococcal: apr 2004 History of Hepatitis B Vaccine: 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 Multi-Drug Resistant Organisms History of MDRO: No Allergies Coded Allergies: Penicillins (Verified Allergy, Severe, 10/03/16) SEVERE RXN PER PT Cephalosporins (Verified Allergy, Unknown, 10/03/16) Sulfamethoxazole w/Trimethoprim (Verified Allergy, Unknown, ., 10/03/16) TAKES LASIX AT HOME Home Medications Scheduled Allopurinol (Allopurinol), 100 MG PO DAILY Amantadine HCl (Amantadine HCl), 100 MG PO BID Ascorbic Acid (Vitamin C), 1 TABS PO QAM Carbidopa/Levodopa (Sinemet Cr 50MG/200MG), 1 TAB PO BID Dutasteride (Avodart), 0.5 MG PO DAILY Enoxaparin (Lovenox), 1 ML SC BID Ferrous Sulfate (Iron), 1 TAB PO DAILY Fluoxetine (Prozac), 40 MG PO QAM Insulin Aspart (Novolog Flexpen), 10 UNITS SC AC Insulin Glargine (Lantus), 40 UNITS SC BID Metoprolol Tartrate (Lopressor), 25 MG PO BID Nystatin (Nystop), 1 APPLN EXT TID Omeprazole (Prilosec), 40 MG PO BID Oxycodone/Acetaminophen 5MG/325MG (Oxycodone/Acetaminophen 5MG/325MG), 1-2 TABS PO Q4 Pregabalin (Lyrica), 300 MG PO BID Tamsulosin HCl (Tamsulosin HCl), 0.4 MG PO QAM Scheduled PRN Colchicine (Colcrys), 0.6 MG PO DAILY PRN for PRN Zolpidem Tartrate (Zolpidem Tartrate), 10 MG PO HS PRN for Sleep Review of Systems Constitutional: + weakness, No chills, No fatigue, No fever, No problem reported, No sweats, No weight loss Eyes: No diplopia, No discharge, No eye pain, No problem reported, No redness, No worsening of vision ENT: No dental problems, No hearing loss, No nasal symptoms, No problem reported, No sore throat, No tinnitus, No trouble swallowing, No unusual epistaxis Respiratory: No cough, No dyspnea at rest, No dyspnea on exertion, No hemoptysis, No problem reported, No shortness of breath, No sputum, No wheezing Cardiovascular: No PND, No chest pain, No claudication, No edema, No orthopnea , No palpitations, No problem reported Abdomen: + pain (suprapubic), No GI bleeding, No constipation, No diarrhea, No nausea, No problem reported, No vomiting Musculoskeletal: No calf pain, No joint pain, No muscle pain, No problem reported, No swelling Genitourinary - Male: + problem reported (robert catheter, decreased UO, no blood) Neurologic: + balance problems (uses a walker), + weakness (chronic, Parkinson' s), No memory loss, No numbness/tingling, No paralysis, No vertigo Psychiatric: No anhedonism, No anxiety, No depression symptoms, No insomnia, No problem reported, No substance abuse Endocrine: No excessive thirst, No excessive urination, No fatigue, No problem reported Hematologic / Lymphatic: No abnormal bleeding/bruising, No clotting problems, No night sweats, No problem reported, No swollen lymph nodes Integumentary: No bleeding, No color change, No itch, No new/changing skin lesions, No problem reported, No rash Allergic / Immunologic: No environmental allergies, No food allergies, No frequent infections, No hives, No pet sensitivities, No poor healing, No problem reported, No prolonged convalescence, No seasonal allergies Physical Exam Vital Signs Date Time Temp Pulse Resp B/P Pulse Ox O2 Delivery O2 Flow Rate FiO2 10/03/16 12:25 96 Room Air 10/03/16 12:00 78 20 160/90 96 Room Air 10/03/16 10:03 37.3 102 18 165/125 98 Room Air General Appearance: no apparent distress, + obese Head: normocephalic, atraumatic Eyes: normal inspection, EOMI, sclerae normal ENT: normal ENT inspection, hearing grossly normal, pharynx normal Neck: supple, no adenopathy, no JVD, trachea midline Respiratory/Chest: chest non-tender, lungs clear, normal breath sounds, no respiratory distress, no accessory muscle use Cardiovascular: regular rate, rhythm, no edema, no gallop, no JVD, no murmur, normal peripheral pulses Abdomen/GI: normal bowel sounds, non tender, soft, no organomegaly Back: normal inspection, no CVA tenderness, no muscle spasm, normal range of motion Extremities/Musculoskelatal: normal inspection, no calf tenderness, normal capillary refill, no pedal edema, normal range of motion, pelvis stable Neurologic/Psych: personal banking officer II-XII nml as tested, no motor/sensory deficits, alert, normal mood/affect, normal reflexes, oriented x 3 Skin: normal color, warm/dry, no rash Lymphatic: no adenopathy Diagnostics Laboratory Results Results Past 24 Hours Test 10/03/16 10:35 10/03/16 10:45 Range/Units Urine Color YELLOW Urine Appearance CLEAR CLEAR Urine pH 6.0 4.5-7.5 Urine Specific [place] 1.015 1.000-1.030 Urine Protein TRACE NEG Urine Glucose (UA) NEG NEG Urine Ketones NEG NEG Urine Occult Blood 1+ NEG Urine Nitrite POS NEG Urine Bilirubin NEG NEG Urine Urobilinogen NEG NEG Urine Leukocyte Esterase MODERATE NEG Urine WBC (Auto) >30 0-5 /hpf Urine RBC (Auto) 10-30 0-4 /hpf Urine Hyaline Casts (Auto) 1-5 0-5 /lpf Urine Epithelial Cells (Auto) 0-5 0-5 /lpf Urine Bacteria (Auto) 1+ NEG Urine Pathogenic Casts 0 /lpf White Blood Count 9.60 4.8-10.8 K/uL Red Blood Count 4.86 4.7-6.1 M/uL Hemoglobin 13.8 14.0-18.0 g/dL Hematocrit 43.2 42-52 % Mean Corpuscular Volume 88.9 80-100 fL Mean Corpuscular Hemoglobin 28.4 25-34 pg Mean Corpuscular Hemoglobin Concent 31.9 32-36 g/dl Platelet Count 175 130-400 K/uL Mean Platelet Volume 9.7 7.4-10.4 fL Neutrophils (%) (Auto) 80.6 % Lymphocytes (%) (Auto) 11.9 % Monocytes (%) (Auto) 4.9 % Eosinophils (%) (Auto) 2.1 % Basophils (%) (Auto) 0.2 % Neutrophils # (Auto) 7.74 1.4-6.5 K/uL Lymphocytes # (Auto) 1.14 1.2-3.4 K/uL Monocytes # (Auto) 0.47 0.11-0.59 K/uL Eosinophils # (Auto) 0.20 0-0.5 K/uL Basophils # (Auto) 0.02 0-0.2 K/uL RDW Standard Deviation 44.9 36.4-46.3 fL RDW Coefficient of Variation 13.7 11.5-14.5 % Immature Granulocyte % (Auto) 0.3 % Immature Granulocyte # (Auto) 0.03 0.00-0.02 K/uL Sodium Level 142 136-145 mmol/L Potassium Level 4.6 3.5-5.1 mmol/L Chloride Level 106 98-107 mmol/L Carbon Dioxide Level 28 21-32 mmol/L Anion Gap 8.0 3-11 mmol/L Blood Urea Nitrogen 16 7-18 mg/dl Creatinine 1.20 0.60-1.40 mg/dl Est Creatinine Clear Calc Drug Dose 83.6 ml/min Estimated GFR () 74.7 Estimated GFR (Non- 64.4 BUN/Creatinine Ratio 13.5 10-20 Random Glucose 193 70-99 mg/dl Calcium Level 9.6 8.5-10.1 mg/dl Total Bilirubin 0.5 0.2-1 mg/dl Aspartate Amino Transf (AST/SGOT) 9 15-37 U/L Alanine Aminotransferase (ALT/SGPT) 23 12-78 U/L Alkaline Phosphatase 140 45-117 U/L Total Protein 8.0 6.4-8.2 gm/dl Albumin 3.5 3.4-5.0 gm/dl Globulin 4.5 2.5-4.0 gm/dl Albumin/Globulin Ratio 0.8 0.9-2 Microbiology Results 10/03/16 Urine Culture, Received Pending Impression Assessment and Plan 61 yo male with chronic indwelling robert, presents with suprapubic pain and evidence of UTI on UA - Complicated UTI due to indwelling robert, no evidence of sepsis Ertapenem IV daily due to h/o resistant Providencia and extensive allergy list follow up on urine culture robert was exchanged in the ED, making urine now - Parkinson's disease: continue Sinemet and Amantadine - h/o PE: on Lovenox BID - DM: continue Lantus 40 units BID and Novolog SS anticipate d/c home once culture comes back, may require PICC if only option is IV Level of Care Med/Surg Advanced Directives Existing Living Will: Yes Existing Power of Lens Edger: Yes Resuscitation Status FULL RESUSCITATION VTE Prophylaxis VTE Risk Assessment Done? Y/N: Yes Risk Level: High Given or contraindicated: Enoxaparin (Lovenox)SQ Additional Copies To Reza Ocasio Jr,D.O.
[2016-10-03] MEDS ORDERED: GLUCAGON FOR INJ 1 MG VIAL SQ PRN ×2 (14:15→15:15)
[2016-10-03] MEDS ORDERED: DEXTROSE 50% 50 ML SYR IV PRN ×2 (14:15→15:15)
[2016-10-03] MEDS ORDERED: GLUCOSE 40% GEL 15 GM TUBE PO PRN ×2 (14:15→15:15)
[2016-10-03] MEDS ORDERED: GLUCOSE 10 TABS/TUBE PO PRN ×2 (14:15→15:15)
[2016-10-03 14:30] VITALS: BP 179/94; PULSE 84; TEMP 36.7; O2SAT 99
[2016-10-03 14:33] VITALS: Ht 175.3 cm; Wt 123.5 kg
[2016-10-03] MEDS: NYSTATIN POWDER 15GM BTL EXT SCH ×2 (15:51→20:25)
[2016-10-03] MEDS: AVODART - ORDER AWAITING ACTION SCH ×2 (15:52→23:32)
[2016-10-03 15:59] VITALS: BP 167/94; PULSE 81; TEMP 36.7; O2SAT 100
[2016-10-03] MEDS ORDERED: ENOXAPARIN 150 MG/1ML SYR SQ ONE (16:00)
[2016-10-03] MEDS: ONDANSETRON INJ 2 MG/ML 2 ML VIAL IV PRN (17:25)
[2016-10-03] MEDS: METOPROLOL TARTRATE 25 MG TAB PO SCH (19:02)
[2016-10-03] MEDS: PREGABALIN 150 MG CAP PO SCH (20:23)
[2016-10-03] MEDS: CARBIDOPA/LEVODOPA 50/200MG EXT REL TAB PO SCH (20:24)
[2016-10-03] MEDS: AMANTADINE HCL 100 MG CAP PO SCH (20:24)
[2016-10-03] MEDS: INSULIN GLARGINE SOLOSTAR 100 UNITS/ML 3 ML PEN SC SCH (20:27)
[2016-10-03 20:30] VITALS: O2SAT 100
[2016-10-03] MEDS: PANTOprazole SOD 40 MG TAB PO SCH (21:47)
[2016-10-03 22:34] VITALS: BP 147/79; PULSE 76; TEMP 36.5; O2SAT 95
[2016-10-03 23:59] VITALS: O2SAT 100
[2016-10-04 05:53] LABS: BASO % 0.5 %; BASO ABS # 0.03 K/uL (0-0.2); COMPLETE YES; EOS % 5.1 %; HEMATOCRIT 38.5 % (42-52); IG% 0.3 %; LYMPH % 25.4 %; LYMPH ABS # 1.59 K/uL (1.2-3.4); MEAN CELL VOLUME 89.7 fL (80-100); MEAN CORPUSCULAR HEMOGLOBIN 28.7 pg (25-34); MEAN CORPUSCULAR HGB CONC 31.9 g/dl (32-36); MEAN PLATELET VOLUME 9.3 fL (7.4-10.4); MONO % 6.4 %; NEUT % 62.3 %; PLATELET COUNT 149 K/uL (130-400); RED BLOOD COUNT 4.29 M/uL (4.7-6.1); WHITE BLOOD COUNT 6.27 K/uL (4.8-10.8)
[2016-10-04] MEDS: ENOXAPARIN 150 MG/1ML SYR SC SCH ×2 (05:57→18:18)
[2016-10-04 06:27] LABS: BUN/CREATININE RATIO 14.7 (10-20); CALCIUM 8.9 mg/dl (8.5-10.1); CREATININE 1.3 mg/dl (0.60-1.40); MAGNESIUM 2.3 mg/dl (1.8-2.4); POTASSIUM 3.6 mmol/L (3.5-5.1)
[2016-10-04] MEDS: FLUOXETINE HCL 20 MG CAP PO SCH (07:45)
[2016-10-04] MEDS: PANTOprazole SOD 40 MG TAB PO SCH ×2 (07:45→20:41)
[2016-10-04] MEDS: AMANTADINE HCL 100 MG CAP PO SCH ×2 (07:45→20:42)
[2016-10-04] MEDS: TAMSULOSIN HCL 0.4 MG CAP PO SCH (07:45)
[2016-10-04] MEDS: ALLOPURINOL 100 MG TAB PO SCH (07:46)
[2016-10-04] MEDS: METOPROLOL TARTRATE 25 MG TAB PO SCH ×2 (07:46→20:40)
[2016-10-04] MEDS: CARBIDOPA/LEVODOPA 50/200MG EXT REL TAB PO SCH ×2 (07:46→20:42)
[2016-10-04 07:49] VITALS: BP 151/80; PULSE 67; TEMP 36.5; O2SAT 95
[2016-10-04] MEDS: AVODART - ORDER AWAITING ACTION SCH ×2 (08:00→16:00)
[2016-10-04] MEDS ORDERED: FERROUS SULFATE 325 MG TAB PO SCH (08:00)
[2016-10-04] MEDS: NYSTATIN POWDER 15GM BTL EXT SCH ×3 (08:04→20:39)
[2016-10-04] MEDS: PREGABALIN 150 MG CAP PO SCH ×2 (08:06→20:40)
[2016-10-04] MEDS: INSULIN GLARGINE SOLOSTAR 100 UNITS/ML 3 ML PEN SC SCH ×2 (08:10→20:39)
[2016-10-04] MEDS: FERROUS SULFATE 325 MG TAB PO SCH (08:44)
[2016-10-04] MEDS: ONDANSETRON INJ 2 MG/ML 2 ML VIAL IV PRN (10:10)
[2016-10-04] MEDS: ERTAPENEM IV 1 GM in SODIUM CHLOR 0.9% AD-VAN 50ML 50 ML IV SCH (13:30)
--- NOTE | 2016-10-04 14:14 | Progress Note ---
Subjective Date of Service: Oct 04, 2016. Subjective Pt evaluation today including: conversation w/ patient, physical exam, chart review, lab review, review of studies, review of inpatient medication list Pain: no pain reported Voiding: robert catheter in place Pt is seen and examined by me. Pt feels better much better and his suprapubic pain improved after changing Robert catheter. Pt denies fever, chills, rigors and sweats. Pt denies nausea, vomiting, and diarrhea. Problem List Medical Problems: (1) Back pain Status: Acute (2) Soni infection Status: Acute (3) Complicated UTI (urinary tract infection) Status: Acute (4) Elevated lactic acid level Status: Acute (5) Fall Status: Acute (6) Head trauma Status: Acute (7) Lower abdominal pain Status: Acute (8) Neck pain Status: Acute (9) Neurogenic bladder Status: Acute (10) Pyelonephritis Status: Acute (11) Sepsis Status: Acute (12) Skin breakdown Status: Acute (13) Spinal stenosis Status: Acute (14) Urinary tract infection Status: Acute (15) UTI (urinary tract infection) Status: Acute (16) Vomiting Status: Acute Review of Systems All Other Systems: Reviewed and Negative Medications Medications (Trade) Dose Ordered Sig/Apryl Route Start Time Stop Time Status Last Admin Dose Admin Ertapenem/Sodium Chloride (Invanz Iv/Nss Ad-Van 50ml) 50 ml @ 120 mls/hr DAILY@1400 IV 10/04/16 14:00 10/14/16 13:59 10/04/16 13:30 120 MLS/HR Allopurinol (Zyloprim Tab) 100 mg DAILY PO 10/04/16 08:00 11/03/16 08:59 10/04/16 07:46 100 MG Amantadine HCl (Symmetrel Cap) 100 mg BID PO 10/03/16 20:00 11/02/16 20:59 10/04/16 07:45 100 MG Carbidopa/Levodopa (Sinemet Cr 50/ 200MG Tab) 1 tab BID PO 10/03/16 20:00 11/02/16 20:59 10/04/16 07:46 1 TAB Enoxaparin Sodium (Lovenox Inj) 129 mg BID@0600,1800 SC 10/04/16 06:00 11/03/16 05:59 10/04/16 05:57 129 MG Fluoxetine HCl (Prozac Cap) 40 mg QAM PO 10/04/16 08:00 11/03/16 08:59 10/04/16 07:45 40 MG Insulin Glargine (Lantus Solostar Pen) 40 unit BID SC 10/03/16 20:00 11/02/16 20:59 10/04/16 08:10 40 UNIT Metoprolol Tartrate (Lopressor Tab) 25 mg BID PO 10/03/16 20:00 11/02/16 20:59 10/04/16 07:46 25 MG Nystatin (Mycostatin Powder) 1 appln TID EXT 10/03/16 15:30 11/02/16 15:29 10/04/16 13:32 1 APPLN Pregabalin (Lyrica Cap) 300 mg BID PO 10/03/16 20:00 11/02/16 20:59 10/04/16 08:06 300 MG Tamsulosin HCl (Flomax Cap) 0.4 mg QAM PO 10/04/16 08:00 11/03/16 08:59 10/04/16 07:45 0.4 MG Pantoprazole Sodium (Protonix Tab) 40 mg BID PO 10/03/16 20:00 11/02/16 20:59 10/04/16 07:45 40 MG Enoxaparin Sodium (Lovenox Inj) 129 mg 1600 ONCE SQ 10/03/16 16:00 10/03/16 16:01 DC 10/03/16 15:52 129 MG Ferrous Sulfate (Feosol Tab) 325 mg DAILY PO 10/04/16 08:00 11/03/16 07:59 10/04/16 08:44 325 MG Objective Vital Signs Date Time Temp Pulse Resp B/P Pulse Ox O2 Delivery O2 Flow Rate FiO2 10/04/16 08:40 Room Air 10/04/16 07:49 36.5 67 18 151/80 95 Room Air 10/03/16 23:59 100 Room Air 10/03/16 22:34 36.5 76 16 147/79 95 Room Air 10/03/16 20:30 100 Room Air 10/03/16 16:00 Room Air 10/03/16 15:59 36.7 81 19 167/94 100 Room Air 10/03/16 14:30 36.7 84 18 179/94 99 Room Air Physical Exam General Appearance: no apparent distress Eyes: EOMI Neck: supple Respiratory/Chest: lungs clear, no respiratory distress, no accessory muscle use Cardiovascular: regular rate, rhythm, no edema, no gallop, no murmur Abdomen: normal bowel sounds, non tender, soft Extremities: normal range of motion, normal inspection, no calf tenderness Neurologic/Psychiatric: alert, normal mood/affect, oriented x 3 Skin: no rash Lymphatic: no adenopathy Laboratory Results Last 24 Hours Test 10/03/16 16:38 10/03/16 20:53 10/04/16 05:20 10/04/16 08:02 Bedside Glucose 143 mg/dl 131 mg/dl 142 mg/dl White Blood Count 6.27 K/uL Red Blood Count 4.29 M/uL Hemoglobin 12.3 g/dL Hematocrit 38.5 % Mean Corpuscular Volume 89.7 fL Mean Corpuscular Hemoglobin 28.7 pg Mean Corpuscular Hemoglobin Concent 31.9 g/dl Platelet Count 149 K/uL Mean Platelet Volume 9.3 fL Neutrophils (%) (Auto) 62.3 % Lymphocytes (%) (Auto) 25.4 % Monocytes (%) (Auto) 6.4 % Eosinophils (%) (Auto) 5.1 % Basophils (%) (Auto) 0.5 % Neutrophils # (Auto) 3.91 K/uL Lymphocytes # (Auto) 1.59 K/uL Monocytes # (Auto) 0.40 K/uL Eosinophils # (Auto) 0.32 K/uL Basophils # (Auto) 0.03 K/uL RDW Standard Deviation 46.5 fL RDW Coefficient of Variation 14.2 % Immature Granulocyte % (Auto) 0.3 % Immature Granulocyte # (Auto) 0.02 K/uL Sodium Level 142 mmol/L Potassium Level 3.6 mmol/L Chloride Level 105 mmol/L Carbon Dioxide Level 32 mmol/L Anion Gap 5.0 mmol/L Blood Urea Nitrogen 19 mg/dl Creatinine 1.30 mg/dl Est Creatinine Clear Calc Drug Dose 76.5 ml/min Estimated GFR () 67.8 Estimated GFR (Non- 58.5 BUN/Creatinine Ratio 14.7 Random Glucose 156 mg/dl Calcium Level 8.9 mg/dl Magnesium Level 2.3 mg/dl Test 10/04/16 11:28 Bedside Glucose 166 mg/dl Assessment and Plan 61 yo male with chronic indwelling robert, presents with suprapubic pain and evidence of UTI on UA 1) Complicated UTI - due to indwelling robert, no evidence of sepsis Ertapenem IV daily due to h/o resistant Providencia and extensive allergy list Preliminary cultures shows staph species, pending sensitivity. robert was exchanged in the ED, good urine out put. 2) Parkinson's disease: continue Sinemet and Amantadine 3) h/o PE: on Lovenox BID 4) DM: continue Lantus 40 units BID and Novolog SS Continued [facility] stay due to: multiple IV medications needed Discharge planning: home
[2016-10-04 14:54] VITALS: BP 120/79; PULSE 68; TEMP 36.8; O2SAT 96
[2016-10-04 22:37] VITALS: BP 124/72; PULSE 64; TEMP 36.8; O2SAT 94
[2016-10-04 22:54] VITALS: BP 110/58; PULSE 81; TEMP 36.7; O2SAT 93
[2016-10-05] MEDS: ENOXAPARIN 150 MG/1ML SYR SC SCH ×2 (06:22→18:36)
[2016-10-05 07:53] VITALS: BP 146/89; PULSE 62; TEMP 36.5; O2SAT 97
[2016-10-05] MEDS: FERROUS SULFATE 325 MG TAB PO SCH (08:29)
[2016-10-05] MEDS: TAMSULOSIN HCL 0.4 MG CAP PO SCH (08:30)
[2016-10-05] MEDS: METOPROLOL TARTRATE 25 MG TAB PO SCH ×2 (08:30→21:15)
[2016-10-05] MEDS: PANTOprazole SOD 40 MG TAB PO SCH ×2 (08:31→21:16)
[2016-10-05] MEDS: PREGABALIN 150 MG CAP PO SCH ×2 (08:31→21:16)
[2016-10-05] MEDS: FLUOXETINE HCL 20 MG CAP PO SCH (08:32)
[2016-10-05] MEDS: CARBIDOPA/LEVODOPA 50/200MG EXT REL TAB PO SCH ×2 (08:33→21:16)
[2016-10-05] MEDS: AMANTADINE HCL 100 MG CAP PO SCH ×2 (08:33→21:16)
[2016-10-05] MEDS: ALLOPURINOL 100 MG TAB PO SCH (08:33)
[2016-10-05] MEDS: AVODART - ORDER AWAITING ACTION SCH ×4 (08:34→23:32)
[2016-10-05] MEDS: INSULIN GLARGINE SOLOSTAR 100 UNITS/ML 3 ML PEN SC SCH ×2 (08:39→21:15)
[2016-10-05] MEDS: NYSTATIN POWDER 15GM BTL EXT SCH ×3 (08:46→21:14)
[2016-10-05 10:33] VITALS: O2SAT 97
[2016-10-05] MEDS ORDERED: NURSING VERBAL MED ORDER ONE (12:00)
[2016-10-05] MEDS ORDERED: BISACODYL 5 MG TABEC PO ONE (12:15)
[2016-10-05] MEDS: ERTAPENEM IV 1 GM in SODIUM CHLOR 0.9% AD-VAN 50ML 50 ML IV SCH (13:40)
--- NOTE | 2016-10-05 15:58 | Progress Note ---
Subjective Date of Service: Oct 05, 2016. Subjective Pt evaluation today including: conversation w/ patient, physical exam, chart review, lab review, review of studies, review of inpatient medication list Pain: no pain reported PO Intake: good oral intake Voiding: robert catheter in place Pt denies any complain, such as SOB, dizziness, palpitation and LOC. Pt denies fever, chills, rigors and sweats. Problem List Medical Problems: (1) Back pain Status: Acute (2) Soni infection Status: Acute (3) Complicated UTI (urinary tract infection) Status: Acute (4) Elevated lactic acid level Status: Acute (5) Fall Status: Acute (6) Head trauma Status: Acute (7) Lower abdominal pain Status: Acute (8) Neck pain Status: Acute (9) Neurogenic bladder Status: Acute (10) Pyelonephritis Status: Acute (11) Sepsis Status: Acute (12) Skin breakdown Status: Acute (13) Spinal stenosis Status: Acute (14) Urinary tract infection Status: Acute (15) UTI (urinary tract infection) Status: Acute (16) Vomiting Status: Acute Review of Systems All Other Systems: Reviewed and Negative Medications Last Resulted CBC 10/04/16 05:20 Red Blood Count 4.29, Mean Corpuscular Volume 89.7, Mean Corpuscular Hemoglobin 28.7, Mean Corpuscular Hemoglobin Concent 31.9, Mean Platelet Volume 9.3, Neutrophils (%) (Auto) 62.3, Lymphocytes (%) (Auto) 25.4, Monocytes (%) (Auto) 6.4, Eosinophils (%) (Auto) 5.1, Basophils (%) (Auto) 0.5, Neutrophils # (Auto) 3.91, Lymphocytes # (Auto) 1.59, Monocytes # (Auto) 0.40, Eosinophils # (Auto) 0.32, Basophils # (Auto) 0.03 Last Resulted BMP 10/04/16 05:20 Objective Vital Signs Date Time Temp Pulse Resp B/P Pulse Ox O2 Delivery O2 Flow Rate FiO2 10/05/16 10:33 97 Room Air 10/05/16 07:53 36.5 62 20 146/89 97 Room Air 10/05/16 00:00 Room Air 10/04/16 22:54 36.7 81 18 110/58 93 10/04/16 22:37 36.8 64 18 124/72 94 Room Air 10/04/16 16:00 Room Air Physical Exam General Appearance: no apparent distress Neck: supple Respiratory/Chest: lungs clear, normal breath sounds Cardiovascular: regular rate, rhythm, no murmur Abdomen: normal bowel sounds, non tender, soft Extremities: normal inspection, no pedal edema Neurologic/Psychiatric: alert, normal mood/affect, oriented x 3 Skin: warm/dry, no rash Laboratory Results Last 24 Hours Test 10/04/16 16:52 10/04/16 20:31 10/05/16 07:36 10/05/16 11:34 Bedside Glucose 152 mg/dl 108 mg/dl 116 mg/dl 132 mg/dl Assessment and Plan 61 yo male with chronic indwelling robert, presents with suprapubic pain and evidence of UTI on UA 1) Complicated UTI - due to indwelling robert, no evidence of sepsis Ertapenem IV daily due to h/o resistant Providencia and extensive allergy list Preliminary cultures shows staph species, pending sensitivity. robert was exchanged in the ED, good urine out put. DC in morining 2) Parkinson's disease: continue Sinemet and Amantadine 3) h/o PE: on Lovenox BID 4) DM: continue Lantus 40 units BID and Novolog SS Continued [facility] stay due to: multiple IV medications needed Discharge planning: home
[2016-10-05 16:02] VITALS: BP 110/72; PULSE 61; TEMP 36.4; O2SAT 100
[2016-10-05 22:39] VITALS: BP 150/83; PULSE 57; TEMP 36.4; O2SAT 98
[2016-10-06] MEDS: ENOXAPARIN 150 MG/1ML SYR SC SCH (05:51)
[2016-10-06 06:05] LABS: HEMATOCRIT 39.4 % (42-52); MEAN CELL VOLUME 89.3 fL (80-100); MEAN CORPUSCULAR HEMOGLOBIN 28.6 pg (25-34); MEAN PLATELET VOLUME 9.5 fL (7.4-10.4); PLATELET COUNT 167 K/uL (130-400); RED BLOOD COUNT 4.41 M/uL (4.7-6.1); WHITE BLOOD COUNT 5.51 K/uL (4.8-10.8)
[2016-10-06 06:53] LABS: CREATININE 1.2 mg/dl (0.60-1.40)
[2016-10-06 07:35] VITALS: BP 152/82; PULSE 55; TEMP 36.4; O2SAT 100
[2016-10-06] MEDS: AVODART - ORDER AWAITING ACTION SCH (08:00)
[2016-10-06] MEDS: NYSTATIN POWDER 15GM BTL EXT SCH ×2 (08:38→14:00)
[2016-10-06] MEDS: FLUOXETINE HCL 20 MG CAP PO SCH (08:38)
[2016-10-06] MEDS: CARBIDOPA/LEVODOPA 50/200MG EXT REL TAB PO SCH (08:39)
[2016-10-06] MEDS: FERROUS SULFATE 325 MG TAB PO SCH (08:39)
[2016-10-06] MEDS: PANTOprazole SOD 40 MG TAB PO SCH (08:39)
[2016-10-06] MEDS: TAMSULOSIN HCL 0.4 MG CAP PO SCH (08:40)
[2016-10-06] MEDS: ALLOPURINOL 100 MG TAB PO SCH (08:41)
[2016-10-06] MEDS: AMANTADINE HCL 100 MG CAP PO SCH (08:41)
[2016-10-06] MEDS: PREGABALIN 150 MG CAP PO SCH (08:43)
[2016-10-06] MEDS: INSULIN GLARGINE SOLOSTAR 100 UNITS/ML 3 ML PEN SC SCH (08:47)
[2016-10-06] MEDS: METOPROLOL TARTRATE 25 MG TAB PO SCH (08:48)
[2016-10-06 08:49] VITALS: PULSE 64
--- NOTE | 2016-10-06 08:52 | Progress Note ---
Subjective Date of Service: Oct 06, 2016. Subjective Pt evaluation today including: conversation w/ patient, physical exam, chart review, lab review, review of inpatient medication list Reports he had fevers at home and "knew he had a uti" before coming to the ED. Had robert changed in ED. Still having suprapubic discomfort. No chest pain, no sob. No n/v. Goo appetite. Problem List Medical Problems: (1) Back pain Status: Acute (2) Soni infection Status: Acute (3) Complicated UTI (urinary tract infection) Status: Acute (4) Elevated lactic acid level Status: Acute (5) Fall Status: Acute (6) Head trauma Status: Acute (7) Lower abdominal pain Status: Acute (8) Neck pain Status: Acute (9) Neurogenic bladder Status: Acute (10) Pyelonephritis Status: Acute (11) Sepsis Status: Acute (12) Skin breakdown Status: Acute (13) Spinal stenosis Status: Acute (14) Urinary tract infection Status: Acute (15) UTI (urinary tract infection) Status: Acute (16) Vomiting Status: Acute Review of Systems All Other Systems: Reviewed and Negative Medications Acetaminophen (Tylenol Tab) 650 mg Q4H PRN PO; Start 10/03/16 at 12:30; Stop 11/02/16 at 12:29 Allopurinol (Zyloprim Tab) 100 mg DAILY PO Last administered on 10/05/16 08:33 ; Admin Dose 100 MG; Start 10/04/16 at 08:00; Stop 11/03/16 at 08:59 Amantadine HCl (Symmetrel Cap) 100 mg BID PO Last administered on 10/05/16 21: 16; Admin Dose 100 MG; Start 10/03/16 at 20:00; Stop 11/02/16 at 20:59 Carbidopa/Levodopa (Sinemet Cr 50/ 200MG Tab) 1 tab BID PO Last administered on 10/05/16 21:16; Admin Dose 1 TAB; Start 10/03/16 at 20:00; Stop 11/02/16 at 20: 59 Colchicine (Colchicine Tab) 0.6 mg DAILY PRN PO; Start 10/03/16 at 12:30; Stop 11/02/16 at 12:29 Dextrose (Dextrose 50% 50ML Syringe) 25-50ML OF 50% DW IV FOR... UD PRN IV; Start 10/03/16 at 14:15; Stop 11/02/16 at 14:14 Dextrose (Dextrose 50% 50ML Syringe) 25-50ML OF 50% DW IV FOR... UD PRN IV; Start 10/03/16 at 15:15; Stop 11/02/16 at 15:14 Enoxaparin Sodium (Lovenox Inj) 129 mg BID@0600,1800 SC Last administered on 05:51; Admin Dose 129 MG; Start 10/04/16 at 06:00; Stop 11/03/16 at 05: 59 Ertapenem/Sodium Chloride (Invanz Iv/Nss Ad-Van 50ml) 50 ml @ 120 mls/hr DAILY@ 1400 IV Last administered on 10/05/16 13:40; Admin Dose 120 MLS/HR; Start 10/04 at 14:00; Stop 10/14/16 at 13:59 Ferrous Sulfate (Feosol Tab) 325 mg DAILY PO Last administered on 10/05/16 08: 29; Admin Dose 325 MG; Start 10/04/16 at 08:00; Stop 11/03/16 at 07:59 Fluoxetine HCl (Prozac Cap) 40 mg QAM PO Last administered on 10/05/16 08:32; Admin Dose 40 MG; Start 10/04/16 at 08:00; Stop 11/03/16 at 08:59 Glucagon (Glucagon Inj) 1 mg UD PRN SQ; Start 10/03/16 at 14:15; Stop 11/02/16 at 14:14 Glucagon (Glucagon Inj) 1 mg UD PRN SQ; Start 10/03/16 at 15:15; Stop 11/02/16 at 15:14 Glucose (Glucose 40% Gel) 15-30 GRAMS 15 GRAMS... UD PRN PO; Start 10/03/16 at 14:15; Stop 11/02/16 at 14:14 Glucose (Glucose 40% Gel) 15-30 GRAMS 15 GRAMS... UD PRN PO; Start 10/03/16 at 15:15; Stop 11/02/16 at 15:14 Glucose (Glucose Chew Tab) 4-8 Tablets 4 Tabl... UD PRN PO; Start 10/03/16 at 14:15; Stop 11/02/16 at 14:14 Glucose (Glucose Chew Tab) 4-8 Tablets 4 Tabl... UD PRN PO; Start 10/03/16 at 15:15; Stop 11/02/16 at 15:14 Insulin Glargine (Lantus Solostar Pen) 40 unit BID SC Last administered on 21:15; Admin Dose 40 UNIT; Start 10/03/16 at 20:00; Stop 11/02/16 at 20:59 Metoprolol Tartrate (Lopressor Tab) 25 mg BID PO Last administered on 10/05/16 21:15; Admin Dose 25 MG; Start 10/03/16 at 20:00; Stop 11/02/16 at 20:59 Miscellaneous Information (Order Awaiting Action) 1 ea QS N/A; Start 10/03/16 at 16:00; Stop 11/02/16 at 15:59 Nystatin (Mycostatin Powder) 1 appln TID EXT Last administered on 10/05/16 21: 14; Admin Dose 1 APPLN; Start 10/03/16 at 15:30; Stop 11/02/16 at 15:29 Ondansetron HCl 4 mg 4 mg Q6H PRN IV Last administered on 10/04/16 10:10; Admin Dose 4 MG; Start 10/03/16 at 12:30; Stop 11/02/16 at 12:29 Oxycodone/ Acetaminophen (Percocet 5-325mg Tab) 1 TAB FOR MODERATE PAIN 2 ... Q4 PRN PO Last administered on 10/03/16 14:25; Admin Dose 2 TAB; Start at 12:30; Stop 10/17/16 at 12:29 Pantoprazole Sodium (Protonix Tab) 40 mg BID PO Last administered on 10/05/16 21:16; Admin Dose 40 MG; Start 10/03/16 at 20:00; Stop 11/02/16 at 20:59 Pregabalin (Lyrica Cap) 300 mg BID PO Last administered on 10/05/16 21:16; Admin Dose 300 MG; Start 10/03/16 at 20:00; Stop 11/02/16 at 20:59 Tamsulosin HCl (Flomax Cap) 0.4 mg QAM PO Last administered on 10/05/16 08:30; Admin Dose 0.4 MG; Start 10/04/16 at 08:00; Stop 11/03/16 at 08:59 Zolpidem Tartrate (Ambien Tab) 10 mg HS PRN PO; Start 10/03/16 at 12:30; Stop 11/02/16 at 12:29 Objective Vital Signs Date Time Temp Pulse Resp B/P Pulse Ox O2 Delivery O2 Flow Rate FiO2 10/06/16 07:35 36.4 55 18 152/82 100 Room Air 10/06/16 00:05 Room Air 10/05/16 22:39 36.4 57 18 150/83 98 Room Air 10/05/16 16:02 36.4 61 18 110/72 100 Room Air 10/05/16 16:00 Room Air 10/05/16 10:33 97 Room Air Physical Exam Comments: nad, aox3 anicteric, moist mucosa s1 s2 rrr, no murmurs appreciated ctab no w/r/r abd soft mild if any suprapubic tenderness, +BS trace BLE edema robert in place Laboratory Results Last 24 Hours Test 10/05/16 11:34 10/05/16 16:47 10/05/16 20:22 10/06/16 05:19 Bedside Glucose 132 mg/dl 99 mg/dl 118 mg/dl White Blood Count 5.51 K/uL Red Blood Count 4.41 M/uL Hemoglobin 12.6 g/dL Hematocrit 39.4 % Mean Corpuscular Volume 89.3 fL Mean Corpuscular Hemoglobin 28.6 pg Mean Corpuscular Hemoglobin Concent 32.0 g/dl RDW Standard Deviation 45.3 fL RDW Coefficient of Variation 13.8 % Platelet Count 167 K/uL Mean Platelet Volume 9.5 fL Creatinine 1.20 mg/dl Est Creatinine Clear Calc Drug Dose 82.9 ml/min Estimated GFR () 74.7 Estimated GFR (Non- 64.4 Assessment and Plan 1. Recurrent UTI - chronic indwelling robert catheter - multiple antibiotic allergies - previously grew Provedencia rettgeri treated with Ertapenm - Ucx now with CoNS sensitive to dapto, vanco, tetracyclines - may be able to discharge on doxy po and not need a PICC, will await ID recommendations regarding agent and duration of treatment 2. Parkinson's - cont Sinemet, cont amantadine 3. Hypercoagulable state - h/o PE - cont lovenox therapeutic dose 4, BPH - maintain robert Continued [facility] stay due to: multiple IV medications needed Discharge planning: home, home with home health
--- NOTE | 2016-10-06 10:06 | Progress Note ---
Progress Note Date of Service Oct 06, 2016. Progress Note ID Consult Dictated #[id number] A/P: 1. Robert assoc uti - [employer] -Agree with transition to po doxy 100mg po bid x 10 days, for prostate procedure in October and possible robert removal -Stop Ertapenem, no need for picc -Ok for d/c when otherwise stable, thank you
--- NOTE | 2016-10-06 10:59 | INFECT. DISEASE CONSULTATION ---
DATE OF CONSULTATION: 10/06/2016 REQUESTING PHYSICIAN: Dr. Simmons. HISTORY OF PRESENT ILLNESS: This is a 61-year-old gentleman who was admitted for subjective fevers and chills and suprapubic tenderness. He does have a chronic indwelling Wills catheter, which he states has been present for 1 year. He has had multiple UTIs associated with this. His most recent cultures were in July and he grew Providencia. Urine culture from this admission is growing coagulase-negative staph. He was placed empirically on ertapenem and he remains on this. He is tolerating antibiotics well. He does have reported ALLERGIES TO BACTRIM, WHICH CAUSES HIVES AND PENICILLIN, WHICH HE STATES HE GOT A HIGH DOSE PENICILLIN A CHILD AND HAD SIGNIFICANT ADVERSE REACTION; HOWEVER, CANNOT DESCRIBE THIS. Infectious disease was asked to see this patient in consultation for antibiotic recommendations with multiple antibiotic allergies. He does not have a leukocytosis. His urinalysis had greater than 30 WBCs and +1 bacteria. He states his Wills catheter was changed in the Emergency Room, but he cannot remember when the last time it was changed prior to this. He states that he does have a followup appointment with his urologist on the and a second followup on October 21 to determine if he will be a candidate for prostate surgery. If that is the case, his Wills will be removed. He is requesting that the Wills be removed. He currently is sitting out of bed to chair and has no complaints. He denies any chest pain, cough, shortness of breath, nausea, vomiting, diarrhea or abdominal pain. His suprapubic pain is resolving. He denies any fevers, but does state he feels cold. He denies rigors specifically. His appetite has been stable. All remaining review of systems is reviewed and negative except for as noted above. PAST MEDICAL HISTORY: Significant for type 2 diabetes, GERD, gout, Parkinson's and history of a PE. FAMILY HISTORY: Noncontributory. SOCIAL HISTORY: Negative for tobacco use, alcohol use or drug use. ALLERGIES: INCLUDE PENICILLINS, CEPHALOSPORINS AND BACTRIM. He is currently on ertapenem and is tolerating this well. CURRENT MEDICATIONS: Include ertapenem, allopurinol, Prozac, Flomax, iron, Lovenox, amantadine, Sinemet, Lantus, Lopressor, Lyrica, Protonix, Tylenol, Zofran, colchicine, Percocet and Ambien. PHYSICAL EXAMINATION: VITAL SIGNS: He has been afebrile since admission. Pulse 64, respiratory rate is 18, blood pressure is 152/82, and oxygen saturation is 100% on room air. GENERAL: He is awake, alert and oriented x3. He is in no acute distress. HEENT: Mucous membranes are moist. Extraocular muscles are intact. HEART: Regular. LUNGS: Clear bilaterally. ABDOMEN: Soft, nontender, and nondistended. EXTREMITIES: There is no lower extremity edema bilaterally. SKIN: Without rash. Wills catheter is in place with yellow urine. LABORATORY STUDIES: CBC today reveals a white blood cell count of 5.5, hemoglobin 12.6, and platelets are 167. Chemistry panel was most recently done on the , sodium 142, potassium 3.6, chloride 105, bicarbonate 32, BUN 19, creatinine 1.3, and glucose is 156. LFTs were normal on admission. Urinalysis again had +1 blood, positive nitrites, moderate leukocyte esterase, greater than 30 WBCs and 1+ bacteria. A urine culture grew coagulase-negative staph, which is resistant to doxycycline and Bactrim. There is no imaging to review; however, he did have a CAT scan of the abdomen and pelvis done on September 05, there were kidney stones, but no pathology noted. ASSESSMENT AND PLAN: 1. Wills associated urinary tract infection with coagulase-negative staph. I am in agreement with the primary service that he can be transitioned to oral doxy, I would give a 10-day course of 100 mg twice daily with food, ertapenem can be discontinued. I do not see any contraindication to discharge to home from an infectious disease's standpoint. He is to follow up with his urologist as planned.
[2016-10-06] MEDS ORDERED: DXY100 PO (13:15)
--- NOTE | 2016-10-06 13:16 | Discharge Instructions ---
Discharge Instructions Date of Service Oct 06, 2016. Admission Reason for Admission: Catheter-Associated Urinary Tract Infection Discharge Discharge Diagnosis / Problem: UTI Discharge Goals Goal(s): Decrease discomfort, Improve disease control Activity Recommendations Activity Limitations: resume your previous activity . Current Hospital Diet Patient's current hospital diet: Diabetes Type 2 Diet Discharge Diet Recommended Diet: Diabetes Type 2 Diet Pending Studies Studies pending at discharge: no Laboratory Results Hemoglobin A1c Test 09/06/16 05:00 Range/Units Estimated Average Glucose 137 mg/dl Hemoglobin A1c 6.4 H 4.5-5.6 % Medical Emergencies . Who to Call and When: Medical Emergencies: If at any time you feel your situation is an emergency, please call 911 immediately. . Non-Emergent Contact Non-Emergency issues call your: Primary Care Provider, Urologist . . "Provider Documentation" section prepared by Mary Simmons. . VTE Core Measure Inpt VTE Proph given/why not?: Enoxaparin (Lovenox)SQ
--- NOTE | 2016-10-06 13:17 | Discharge Summary ---
Discharge Summary Date of Service Oct 06, 2016. Discharge Summary Admission Date: Oct 03, 2016 at 12:25 Discharge Date: Oct 06, 2016 Discharge Disposition: Home Principal Diagnosis: CoNS UTI Immunizations: History of Tetanus Vaccine?: probably over 10 yrs ago History of Pneumococcal: apr 2004 History of Hepatitis B Vaccine: 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 Medication Reconciliation New Medications: Doxycycline Hyclate (Doxycycline Hyclate) 100 Mg Cap 100 MG PO BID for 10 Days, #20 CAP Continued Medications: Allopurinol (Allopurinol) 100 Mg Tab 100 MG PO DAILY Amantadine HCl (Amantadine HCl) 100 Mg Cap 100 MG PO BID Ascorbic Acid (Vitamin C) 500 Mg Tab 1 TABS PO QAM Carbidopa/Levodopa (Sinemet Cr 50MG/200MG) Tabcr 1 TAB PO BID Colchicine (Colcrys) 0.6 Mg Tab 0.6 MG PO DAILY PRN for PRN Dutasteride (Avodart) 0.5 Mg Cap 0.5 MG PO DAILY Enoxaparin (Lovenox) 150 Mg/1 Ml Inj 1 ML SC BID Ferrous Sulfate (Iron) 325 Mg Tab 1 TAB PO DAILY Fluoxetine (Prozac) 40 Mg Cap 40 MG PO QAM Insulin Aspart (Novolog Flexpen) 100 Units/Ml Inj 10 UNITS SC AC, #1 BOX 1 Refill Insulin Glargine (Lantus) 100 Unit/Ml Inj 40 UNITS SC BID Metoprolol Tartrate (Lopressor) 25 Mg Tab 25 MG PO BID Nystatin (Nystop) 45 Appln/15 Gm Powd 1 APPLN EXT TID for 10 Days, #1 1 Refill apply in between skin folds on lower abdomen for 10 days Omeprazole (Prilosec) 40 Mg Cap 40 MG PO BID Oxycodone/Acetaminophen 5MG/325MG (Oxycodone/Acetaminophen 5MG/325MG) 1 Tab Tab 1-2 TABS PO Q4 for Pain for 30 Days Pregabalin (Lyrica) 300 Mg Cap 300 MG PO BID Tamsulosin HCl (Tamsulosin HCl) 0.4 Mg Cap 0.4 MG PO QAM Zolpidem Tartrate (Zolpidem Tartrate) 10 Mg Tab 10 MG PO HS PRN for Sleep Hospital Course 61 yo male with h/o Parkinson's disease and neurogenic bladder with chronic indwelling robert catheter, presents to the ED with suprapubic pain and decreased urine output. He has a long history of UTI, multiple cultures have shown multiple organisms but there have been two cultures + for Provedencia that is resistant to quinolones. He has been treated with Ertapenem in the past. He admits to feeling warm but no documented fevers and he did have a few chills. Appetite normal, no vomiting and he is moving bowel regularly. Parkinson's stable, ambulated with walker, no falls recently. In the ED his labs and vitals were normal. Robert was clogged and so it was changed out, urine sample shows elevated WBC, bacteria and nitrites/LE. Was started on Ertapenem. We were asked to admit because the patient has long allergy list and past cultures showed resistance to quinolones. Robert was changedi the [facility] ED. Patient was started on Ertapenem, however, UCX grew Coag Neg Staph sensitive to tetracyclines. He will be discharged on doxy 100 mg bid for a 1-day course. 1. Recurrent UTI - chronic indwelling robert catheter - multiple antibiotic allergies - previously grew Provedencia rettgeri treated with Ertapenm - Ucx now with CoNS sensitive to dapto, vanco, tetracyclines - Doxy 100 mg bid for 10 days 2. Parkinson's - cont Sinemet, cont amantadine 3. Hypercoagulable state - h/o PE - cont lovenox therapeutic dose 4, BPH - maintain robert - f/u urology Total Time Spent: Less than 30 minutes This includes examination of the patient, discharge planning, medication reconciliation, and communication with other providers. Discharge Instructions Please refer to the electronic Patient Visit Report (Discharge Instructions) for additional information. Additional Copies To Reza Ocasio Jr, D.O.
[2016-10-06 14:27] VITALS: BP 152/82; PULSE 64; TEMP 36.4; O2SAT 100
[2016-10-06] MEDS ORDERED: DOXYCYCLINE HYCLATE 100 MG CAP PO SCH (20:00)
[2016-11-14] MEDS ORDERED: LPR25 PO (10:42)
[2016-11-14] MEDS ORDERED: ASPEC81 PO (10:42)
[2016-11-14] MEDS ORDERED: LVNIS150 SQ (10:42)
[2016-11-14] MEDS ORDERED: IMDSR30 PO (10:42)
[2016-11-14] MEDS ORDERED: CARV3.122 PO (11:15)
[2016-11-14] MEDS ORDERED: NITR-5 PO (11:15)
[2017-01-02] MEDS ORDERED: FURO40TA3 PO (11:45)
[2017-01-02] MEDS ORDERED: INSDGI SC (19:52)
[2017-01-23] MEDS ORDERED: ALL100 PO (12:38)
[2017-01-23] MEDS ORDERED: SYM100 PO (12:38)
[2017-01-23] MEDS ORDERED: PREG300C PO (12:38)
[2017-01-23] MEDS ORDERED: CARB50TA3 PO (12:44)
[2017-01-23] MEDS ORDERED: SIMV20TA2 PO (17:27)
[2017-03-12] MEDS ORDERED: SPIR25TA PO (10:50)
[2017-03-12] MEDS ORDERED: INSDGI SC (10:50)
[2017-03-12] MEDS ORDERED: VERA1TAB52 PO (10:50)
[2017-03-12] MEDS ORDERED: ZNT150 PO (10:50)
[2017-03-12] MEDS ORDERED: LVNIS150 SC (10:50)
[2017-03-12] MEDS ORDERED: FURO80TA63 PO (10:50)
[2017-03-12] MEDS ORDERED: PRT40 PO (10:50)
[2017-04-15] MEDS ORDERED: FURO80TA63 PO (23:28)
[2017-04-15] MEDS ORDERED: INSDGI SC (23:32)
[2017-04-15] MEDS ORDERED: SPIR25TA PO (23:35)
[2017-04-15] MEDS ORDERED: ZNTT/150 PO (23:44)
[2017-04-15] MEDS ORDERED: NVLGI7030 SC (23:46)
== END 2016-10-06 16:53 | disposition home health service (06) | DRG 699 ==
LOC: ENRESERVDT → ENRESERVTM → EDBD 09:56 → C.EDB 09:59 → C.4E 12:25
PROVIDERS: ADMIT Internal Medicine; ATTEND Internal Medicine
PROC: 0T2BX0Z Change Drainage Device in Bladder, External Approach (ICD-10-PCS; principal; 2016-10-03)
DX: T83.518A Infection and inflammatory reaction due to other urinary catheter, initial encounter (principal); N39.0 Urinary tract infection, site not specified; D68.59 Other primary thrombophilia; G20 Parkinson's disease; N31.9 Neuromuscular dysfunction of bladder, unspecified; B95.8 Unspecified staphylococcus as the cause of diseases classified elsewhere; E11.9 Type 2 diabetes mellitus without complications; K21.9 Gastro-esophageal reflux disease without esophagitis; N40.1 Benign prostatic hyperplasia with lower urinary tract symptoms; M10.9 Gout, unspecified; Z96.0 Presence of urogenital implants; Z86.711 Personal history of pulmonary embolism; Z79.01 Long term (current) use of anticoagulants; Z79.4 Long term (current) use of insulin; Z79.891 Long term (current) use of opiate analgesic; Z79.899 Other long term (current) drug therapy; Z88.0 Allergy status to penicillin; Z88.1 Allergy status to other antibiotic agents; Z88.2 Allergy status to sulfonamides

== ENCOUNTER 2016-10-21 11:16 | Emergency (ER) | payer OTHER ==
[~2016-10-21] VITALS: Ht 175.3 cm; Wt 127.9 kg
[~2016-10-21 11:16] MED LIST changes: +DXY100 PO
[2016-10-21 11:36] VITALS: TEMP 36.7; Ht 175.3 cm; Wt 127.9 kg
[2016-10-21] MEDS ORDERED: SPIR25TA89 PO (11:45)
[2016-10-21] MEDS ORDERED: LSN40 PO (11:45)
[2016-10-21] MEDS ORDERED: SODIUM CHLORIDE 0.9% 1000ML 1,000 ML IV STA (12:54)
[2016-10-21] MEDS ORDERED: KETOROLAC TROMETHAMINE 30 MG/ML VIAL IV STA (12:54)
[2016-10-21] MEDS ORDERED: METOCLOPRAMIDE HCL INJ 5 MG/ML 2 ML VIAL IV STA (12:54)
[2016-10-21] MEDS ORDERED: HYDROmorphone INJ 1 MG/ML SYR IV STA ×2 (12:54→14:45)
[2016-10-21 13:10] LABS: BASO % 0.4 %; BASO ABS # 0.03 K/uL (0-0.2); COMPLETE YES; EOS % 3.6 %; HEMATOCRIT 42.9 % (42-52); IG% 0.4 %; LYMPH % 22.7 %; MEAN CELL VOLUME 88.8 fL (80-100); MEAN CORPUSCULAR HEMOGLOBIN 28.6 pg (25-34); MEAN CORPUSCULAR HGB CONC 32.2 g/dl (32-36); MEAN PLATELET VOLUME 9.2 fL (7.4-10.4); MONO % 3.9 %; PLATELET COUNT 206 K/uL (130-400); RED BLOOD COUNT 4.83 M/uL (4.7-6.1); WHITE BLOOD COUNT 7.48 K/uL (4.8-10.8)
--- NOTE | 2016-10-21 13:13 | EMERGENCY ROOM VISIT NOTE ---
History Report prepared by Tyra: Frandy Velasquez Under the Supervision of: Dr. Barak Lam M.D. First contact with patient: 12:27 Chief Complaint: ABDOMINAL PAIN Stated Complaint: ABDOMINAL PAIN Nursing Triage Summary: PT PRESENTS VIA ALS FORM HOME WITH SEVERE INTERMITTENT ABDOMINAL PAIN GOING ON FOR A FEW DAYS WHICH WORSENED TODAY, 10/10. PT VERBALIZES HE WAS JUST HERE FOR THE SAME THING RECENTLY AND WAS TREATED WITH ABX FOR UTI. PT HAS A CHRONIC MCKINNON CATHETER. DENIES ANY NAUSEA/VOMITING/CONSTIPATION/DIARRHEA. History of Present Illness The patient is a 61 year old male who presents to the Emergency Room with complaints of waxing and waning lower abdominal pain beginning a couple of days ago. He currently rates his discomfort as a 10/10 in severity. The patient states that this morning the pain worsened and it moved to the epigastric region of his stomach. He reports that when his pain hit he experienced shortness of breath. The patient notes a history of a hernia repair, and it feels like "the mesh is slicing or cutting." He also notes that he has a history of an appendectomy. He denies any history of a cholecystectomy. The patient denies any rash or constipation. The patient reports that he is currently on Doxycycline for a UTI, stating that he has one more tablet to take. He additionally notes that he has an indwelling Mckinnon catheter. Source of History: patient Onset: a couple of days ago Position: abdomen (lower) Quality: other (slicing and cutting) Timing: waxes/wanes Associated Symptoms: + SOB, No rash Review of Systems See HPI for pertinent positives & negatives. A total of 10 systems reviewed and were otherwise negative. Past Medical & Surgical Medical Problems: (1) Catheter-associated urinary tract infection (2) Diabetes mellitus (3) Dyspnea (4) Gastroesophageal reflux disease (5) Gout (6) Parkinson's disease (7) Pulmonary embolism (8) Syncope (9) Weakness Family History Cancer Diabetes mellitus FH: heart disease Hypertension Social History Smoking Status: Never Smoker Alcohol Use: none Drug Use: none Marital Status: single Housing Status: lives alone Occupation Status: retired Current/Historical Medications Scheduled Allopurinol (Allopurinol), 100 MG PO BID Amantadine HCl (Amantadine HCl), 100 MG PO BID Ascorbic Acid (Vitamin C), 500 MG PO QAM Carbidopa/Levodopa (Sinemet Cr 50MG/200MG), 1 TAB PO BID Docusate Sodium (Colace), 1 CAP PO BID Doxycycline Hyclate (Doxycycline Hyclate), 100 MG PO BID Dutasteride (Avodart), 0.5 MG PO DAILY Enoxaparin (Lovenox), 150 MG SC BID Ferrous Sulfate (Iron), 1 TAB PO DAILY Fluoxetine (Prozac), 40 MG PO QAM Furosemide (Lasix), 40 MG PO BID Insulin Aspart (Novolog Flexpen), 10 UNITS SC AC Insulin Glargine (Lantus), 40 UNITS SC BID Lisinopril (Lisinopril), 40 MG PO BID Metoprolol Tartrate (Lopressor), 25 MG PO BID Omeprazole (Prilosec), 40 MG PO BID Oxycodone/Acetaminophen 5MG/325MG (Oxycodone/Acetaminophen 5MG/325MG), 1-2 TABS PO Q4 Pregabalin (Lyrica), 300 MG PO BID Sennosides (Senokot), 8.6 MG PO HS Spironolactone (Aldactone), 25 MG PO BID Tamsulosin HCl (Tamsulosin HCl), 0.4 MG PO QAM Scheduled PRN Colchicine (Colcrys), 0.6 MG PO DAILY PRN for PRN Oxycodone/Acetaminophen 5MG/325MG (Percocet 5MG/325MG), 1-2 TAB PO Q4H PRN for Pain Allergies Coded Allergies: Penicillins (Verified Allergy, Severe, 10/21/16) SEVERE RXN PER PT Cephalosporins (Verified Allergy, Unknown, 10/21/16) Sulfamethoxazole w/Trimethoprim (Verified Allergy, Unknown, ., 10/21/16) TAKES LASIX AT HOME Physical Exam Vital Signs Date Time Temp Pulse Resp B/P Pulse Ox O2 Delivery O2 Flow Rate FiO2 10/21/16 16:34 106 18 164/106 98 Room Air 10/21/16 15:36 113 18 169/99 97 Room Air 10/21/16 13:26 82 18 178/108 98 Room Air 10/21/16 11:36 36.7 91 18 183/97 97 Room Air Physical Exam GENERAL: Patient is a healthy-appearing well-nourished HEAD: Normocephalic atraumatic EYES: Ocular movements intact pupils equal and react to light OROPHARYNX mucous membranes are moist no exudates present no erythema or edema present NECK: Supple no nuchal rigidity CHEST: Good equal expansion LUNGS: Clear and equal to auscultation CARDIAC: Normal S1 and S2 ABDOMEN: Soft, tender in the right upper quadrant, no guarding BACK: No CVA tenderness EXTREMITIES: No pain upon palpation normal muscle strength in all groups no clubbing cyanosis or edema NEURO: Patient is following commands is answering questions appropriately. Alert and oriented x3 Cranial Nerves 2-12 grossly intact Medical Decision & Procedures ER Provider Diagnostic Interpretation: Radiology results as stated below per my review and radiologist interpretation: CT ABD/PELVIS IV AND ORAL CONT CLINICAL HISTORY: Right upper quadrant abdominal pain COMPARISON STUDY: 09/05/2016 TECHNIQUE: Following the IV administration of 115 mL of Optiray-320, CT scan of the abdomen and pelvis was performed from the lung bases to the proximal femurs. Images are reviewed in the axial, sagittal, and coronal planes. IV contrast was administered without complication. CT DOSE: 1837.98 mGy.cm FINDINGS: Lower chest: The heart is normal in size and configuration, without pericardial effusion. The lung bases and pleural spaces are clear. Liver: There is mild hepatic steatosis. No focal masses are visualized. The portal vein appears patent. Gallbladder: Unremarkable. Spleen: Normal in size and attenuation. Pancreas: Unremarkable. Adrenal glands: Unremarkable. Kidneys: There are nonobstructing lower pole left renal calculi measuring up to 3 mm in diameter. There is an 11 mm right renal cortical cyst. There is no hydronephrosis. Bowel: There are no transition zones indicate bowel obstruction. By history the appendix is surgically absent. There is no acute diverticulitis. Peritoneum: There is no intraperitoneal free air or abdominal ascites. Vasculature: There is no evidence of abdominal aortic aneurysm. There are multiple venous collaterals. There is a bilateral IVC/iliac vein stent. Bilateral iliac vein and IVC thrombus is suspected. Adenopathy: None. Pelvic viscera: There is indwelling Mckinnon catheter. There is air within the bladder likely iatrogenic. There is bladder wall thickening which is likely secondary to a decompressed bladder Skeletal structures: No destructive osseous lesions are seen. IMPRESSION: 1. No evidence of bowel obstruction. No evidence of free air 2. Left-sided nephrolithiasis 3. No acute inflammatory changes 4. Stents within the IVC and iliac veins 5. Multiple venous collaterals Electronically signed by: Abe Tejeda M.D. 10/21/2016 4:19 PM Dictated Date/Time: 10/21/2016 4:14 PM ABDOMINAL ULTRASOUND, RIGHT UPPER QUADRANT HISTORY: Pt c/o RUQ abd pain. COMPARISON: Abdomen and pelvis CT 09/05/2016. FINDINGS: Pancreas: Obscured by overlying bowel gas. Liver: Mildly enlarged measuring 20 cm in length. No hepatic masses. Gallbladder: No gallbladder wall thickening. No gallstones. CBD: 4 mm. Right kidney: No hydronephrosis. IMPRESSION: 1. Normal gallbladder. No gallstones. 2. Mild hepatomegaly. 3. The pancreas was obscured by overlying bowel gas. Electronically signed by: Silver Rhodes M.D. 10/21/2016 2:19 PM Dictated Date/Time: 10/21/2016 2:17 PM Laboratory Results 10/21/16 12:18 Red Blood Count 4.83, Mean Corpuscular Volume 88.8, Mean Corpuscular Hemoglobin 28.6, Mean Corpuscular Hemoglobin Concent 32.2, Mean Platelet Volume 9.2, Neutrophils (%) (Auto) 69.0, Lymphocytes (%) (Auto) 22.7, Monocytes (%) (Auto) 3.9, Eosinophils (%) (Auto) 3.6, Basophils (%) (Auto) 0.4, Neutrophils # (Auto) 5.16, Lymphocytes # (Auto) 1.70, Monocytes # (Auto) 0.29, Eosinophils # (Auto) 0.27, Basophils # (Auto) 0.03 10/21/16 12:18 Test 10/21/16 12:18 10/21/16 13:35 White Blood Count 7.48 K/uL (4.8-10.8) Red Blood Count 4.83 M/uL (4.7-6.1) Hemoglobin 13.8 g/dL (14.0-18.0) Hematocrit 42.9 % (42-52) Mean Corpuscular Volume 88.8 fL (80-100) Mean Corpuscular Hemoglobin 28.6 pg (25-34) Mean Corpuscular Hemoglobin Concent 32.2 g/dl (32-36) Platelet Count 206 K/uL (130-400) Mean Platelet Volume 9.2 fL (7.4-10.4) Neutrophils (%) (Auto) 69.0 % Lymphocytes (%) (Auto) 22.7 % Monocytes (%) (Auto) 3.9 % Eosinophils (%) (Auto) 3.6 % Basophils (%) (Auto) 0.4 % Neutrophils # (Auto) 5.16 K/uL (1.4-6.5) Lymphocytes # (Auto) 1.70 K/uL (1.2-3.4) Monocytes # (Auto) 0.29 K/uL (0.11-0.59) Eosinophils # (Auto) 0.27 K/uL (0-0.5) Basophils # (Auto) 0.03 K/uL (0-0.2) RDW Standard Deviation 45.4 fL (36.4-46.3) RDW Coefficient of Variation 13.8 % (11.5-14.5) Immature Granulocyte % (Auto) 0.4 % Immature Granulocyte # (Auto) 0.03 K/uL (0.00-0.02) Anion Gap 6.0 mmol/L (3-11) Est Creatinine Clear Calc Drug Dose 101.4 ml/min Estimated GFR () 93.1 Estimated GFR (Non- 80.3 BUN/Creatinine Ratio 14.7 (10-20) Calcium Level 9.5 mg/dl (8.5-10.1) Total Bilirubin 0.4 mg/dl (0.2-1) Direct Bilirubin 0.1 mg/dl (0-0.2) Aspartate Amino Transf (AST/SGOT) 6 U/L (15-37) Alanine Aminotransferase (ALT/SGPT) 16 U/L (12-78) Alkaline Phosphatase 142 U/L (45-117) Total Protein 8.0 gm/dl (6.4-8.2) Albumin 3.6 gm/dl (3.4-5.0) Lipase 108 U/L (73-393) Urine Color YELLOW Urine Appearance TURBID (CLEAR) Urine pH 5.0 (4.5-7.5) Urine Specific [place] 1.020 (1.000-1.030) Urine Protein NEG (NEG) Urine Glucose (UA) NEG (NEG) Urine Ketones NEG (NEG) Urine Occult Blood NEG (NEG) Urine Nitrite NEG (NEG) Urine Bilirubin NEG (NEG) Urine Urobilinogen NEG (NEG) Urine Leukocyte Esterase SMALL (NEG) Urine WBC (Auto) 5-10 /hpf (0-5) Urine RBC (Auto) 10-30 /hpf (0-4) Urine Hyaline Casts (Auto) 10-30 /lpf (0-5) Urine Epithelial Cells (Auto) >30 /lpf (0-5) Urine Bacteria (Auto) NEG (NEG) Urine Renal Epithelial Cells /lpf (0-5) Urine Crystals URIC ACID (NONE PRSENT) Urine Pathogenic Casts 0-3 GRANULAR CASTS /lpf (0) Labs reviewed by ED physician. Medications Administered Medications (Trade) Dose Ordered Sig/Apryl Route Start Time Stop Time Status Last Admin Dose Admin Sodium Chloride (Nss 1000ml) 1,000 ml @ 999 mls/hr Q1H1M STAT IV 10/21/16 12:54 10/21/16 13:54 DC 10/21/16 13:25 999 MLS/HR Ketorolac Tromethamine (Toradol Inj) 30 mg NOW STAT IV 10/21/16 12:54 10/21/16 12:57 DC 10/21/16 13:24 30 MG Hydromorphone HCl (Dilaudid Inj) 1 mg NOW STAT IV 10/21/16 12:54 10/21/16 12:57 DC 10/21/16 13:23 1 MG Metoclopramide HCl (Reglan Inj) 10 mg NOW STAT IV 10/21/16 12:54 10/21/16 12:57 DC 10/21/16 13:24 10 MG Ondansetron HCl (Zofran Inj) 4 mg NOW STAT IV 10/21/16 14:45 10/21/16 14:47 DC 10/21/16 15:01 4 MG Hydromorphone HCl (Dilaudid Inj) 1 mg NOW STAT IV 10/21/16 14:45 10/21/16 14:47 DC 10/21/16 15:01 1 MG ED Course 1250: Past medical records reviewed. The patient was evaluated in room C09. A complete history and physical examination was performed. 1254: Ordered Reglan Inj 10 mg IV, Dilaudid Inj 1 mg IV, Toradol Inj 30 mg IV, Sodium Chloride 1000 ml @ 999 mls/hr IV. 1405: I updated the patient on his findings and he is doing well. 1445: I reevaluated the patient and he has improved. Ordered Dilaudid Inj 1 mg IV, Zofran Inj 4 mg IV 1625: I reevaluated the patient and he is resting comfortably. I discussed his exam findings and treatment plans with him. He verbalized understanding and agreement with the treatment plan, and he is ready to go home. Medical Decision Differential diagnosis: Etiologies such as appendicitis, diverticulitis, PUD, biliary pathology, UTI, pancreatitis, obstruction, mesenteric ischemia, aortic pathology, infections, inflammatory bowel disease, renal colic, as well as others were entertained. This is a 61-year-old male who presents emergency department complaining of epigastric abdominal pain that has moved to his umbilicus. The patient states it is different from his urinary tract infection pain that he experienced 10 days ago. He is early on doxycycline for the urinary tract infection. Cath urine reveals some blood in his urine however there is no outright evidence of infection. For this reason I will hold off on treating the UTI as he does not have an elevation in his white blood count cell count pending urine culture results. The patient also has a normal CBC normal renal profile normal liver profile normal lipase. Serial abdominal examinations were performed on the patient in the emergency department and at no time did the patient exhibit a surgical abdomen. The patient was sent for an ultrasound as he is having right upper quadrant pain however there is no evidence cholecystitis. In addition the patient also has a normal CT the abdomen and pelvis. I discussed my findings with the patient and I believe he be disc safely discharged home for follow-up with urology. Patient was given Percocet for home and I recommended a clear liquid diet for the next 48 hours. Patient was in agreement with the treatment plan. Impression Primary Impression: Epigastric abdominal pain Scribe Attestation The scribe's documentation has been prepared under my direction and personally reviewed by me in its entirety. I confirm that the note above accurately reflects all work, treatment, procedures, and medical decision making performed by me. Departure Information Dispostion Home / Self-Care Prescriptions Docusate Sodium (COLACE) 100 Mg Cap 1 CAP PO BID for 10 Days, #20 CAP Prov: Barak Lam MD 10/21/16 Sennosides (SENOKOT) 8.6 Mg Tab 8.6 MG PO HS for 10 Days, #10 TAB Prov: Barak Lam MD 10/21/16 Oxycodone/Acetaminophen 5MG/325MG (PERCOCET 5MG/325MG) Tab 1-2 TAB PO Q4H Y for Pain, #14 TAB Prov: Barak Lam MD 10/21/16 Referrals Reza Ocasio,Jr,D.O. (PCP) Nino Case MD, Urology Forms HOME CARE DOCUMENTATION FORM, IMPORTANT VISIT INFORMATION, School Instructions, Work Instructions Patient Instructions ED Abd Pain Unkn Cause Male, ED Diet Clear Liquid, My [facility] Additional Instructions Clear liquid diet next 48 hours Follow up with DR Case's office You received narcotic or benzodiazepene medication while in the emergency room today. Do not drive, operate heavy machinery, or drink alcohol under the influence of this medication. Take 600 mg Ibuprofen every 6 hours Take Percocet for breakthrough pain Culture results are usually available in approx 48 hours You have been examined and treated today on an emergency basis only. This is not a substitute for, or an effort to provide, complete comprehensive medical care. It is impossible to recognize and treat all injuries or illnesses in a single emergency department visit. It is therefore important that you follow up closely with Dr Ocasio. Call as soon as possible for an appointment. Thank you for your time and consideration. I look forward to speaking with you again soon. Please don't hesitate to call us if you have any questions.
[2016-10-21 13:19] LABS: BUN/CREATININE RATIO 14.7 (10-20); CALCIUM 9.5 mg/dl (8.5-10.1); POTASSIUM 4.2 mmol/L (3.5-5.1)
[2016-10-21 14:17] LABS: URINE APPEARANCE TURBID (CLEAR); URINE BILIRUBIN NEG (NEG); URINE COLOR YELLOW; URINE EPITHELIAL CELL AUTO >30 /lpf (0-5); URINE NITRITE NEG (NEG); UROBILINOGEN NEG (NEG); ZZURINE CULT IF INDIC CATH NO
--- NOTE | 2016-10-21 14:20 | DIAGNOSTIC IMAGING REPORT ---
ABDOMINAL ULTRASOUND, RIGHT UPPER QUADRANT HISTORY: Pt c/o RUQ abd pain. COMPARISON: Abdomen and pelvis CT 09/05/2016. FINDINGS: Pancreas: Obscured by overlying bowel gas. Liver: Mildly enlarged measuring 20 cm in length. No hepatic masses. Gallbladder: No gallbladder wall thickening. No gallstones. CBD: 4 mm. Right kidney: No hydronephrosis. IMPRESSION: 1. Normal gallbladder. No gallstones. 2. Mild hepatomegaly. 3. The pancreas was obscured by overlying bowel gas. Electronically signed by: Silver Rhodes M.D. 10/21/2016 2:19 PM Dictated Date/Time: 10/21/2016 2:17 PM
[2016-10-21 14:42] LABS: MANUAL MICROSCOPIC REQUIRED? NO; REVIEW REQ? YES
[2016-10-21] MEDS ORDERED: ONDANSETRON INJ 2 MG/ML 2 ML VIAL IV STA (14:45)
[2016-10-21 14:52] LABS: URINE PATH CASTS 0-3 GRANULAR CASTS /lpf (0)
[2016-10-21] MEDS ORDERED: OPTIRAY 320 IV PRN (16:15)
--- NOTE | 2016-10-21 16:20 | DIAGNOSTIC IMAGING REPORT ---
CT ABD/PELVIS IV AND ORAL CONT CLINICAL HISTORY: Right upper quadrant abdominal pain COMPARISON STUDY: 09/05/2016 TECHNIQUE: Following the IV administration of 115 mL of Optiray-320, CT scan of the abdomen and pelvis was performed from the lung bases to the proximal femurs. Images are reviewed in the axial, sagittal, and coronal planes. IV contrast was administered without complication. CT DOSE: 1837.98 mGy.cm FINDINGS: Lower chest: The heart is normal in size and configuration, without pericardial effusion. The lung bases and pleural spaces are clear. Liver: There is mild hepatic steatosis. No focal masses are visualized. The portal vein appears patent. Gallbladder: Unremarkable. Spleen: Normal in size and attenuation. Pancreas: Unremarkable. Adrenal glands: Unremarkable. Kidneys: There are nonobstructing lower pole left renal calculi measuring up to 3 mm in diameter. There is an 11 mm right renal cortical cyst. There is no hydronephrosis. Bowel: There are no transition zones indicate bowel obstruction. By history the appendix is surgically absent. There is no acute diverticulitis. Peritoneum: There is no intraperitoneal free air or abdominal ascites. Vasculature: There is no evidence of abdominal aortic aneurysm. There are multiple venous collaterals. There is a bilateral IVC/iliac vein stent. Bilateral iliac vein and IVC thrombus is suspected. Adenopathy: None. Pelvic viscera: There is indwelling Wills catheter. There is air within the bladder likely iatrogenic. There is bladder wall thickening which is likely secondary to a decompressed bladder Skeletal structures: No destructive osseous lesions are seen. IMPRESSION: 1. No evidence of bowel obstruction. No evidence of free air 2. Left-sided nephrolithiasis 3. No acute inflammatory changes 4. Stents within the IVC and iliac veins 5. Multiple venous collaterals Electronically signed by: Abe Tejeda M.D. 10/21/2016 4:19 PM Dictated Date/Time: 10/21/2016 4:14 PM
[2016-10-21 16:34] VITALS: BP 164/106; PULSE 106; O2SAT 98
[2016-10-21] MEDS ORDERED: DOCU-94 PO (16:35)
[2016-10-21] MEDS ORDERED: SENN1TAB77 PO (16:35)
[2016-10-21] MEDS ORDERED: OXYC-57 PO (16:35)
[2016-11-14] MEDS ORDERED: IMDSR30 PO (10:42)
[2016-11-14] MEDS ORDERED: LPR25 PO (10:42)
[2016-11-14] MEDS ORDERED: LVNIS150 SQ (10:42)
[2016-11-14] MEDS ORDERED: ASPEC81 PO (10:42)
[2016-11-14] MEDS ORDERED: NITR-5 PO (11:15)
[2016-11-14] MEDS ORDERED: CARV3.122 PO (11:15)
[2017-01-02] MEDS ORDERED: FURO40TA3 PO (11:45)
[2017-01-02] MEDS ORDERED: INSDGI SC (19:52)
[2017-01-23] MEDS ORDERED: SYM100 PO (12:38)
[2017-01-23] MEDS ORDERED: ALL100 PO (12:38)
[2017-01-23] MEDS ORDERED: PREG300C PO (12:38)
[2017-01-23] MEDS ORDERED: CARB50TA3 PO (12:44)
[2017-01-23] MEDS ORDERED: SIMV20TA2 PO (17:27)
[2017-03-12] MEDS ORDERED: ZNT150 PO (10:50)
[2017-03-12] MEDS ORDERED: FURO80TA63 PO (10:50)
[2017-03-12] MEDS ORDERED: PRT40 PO (10:50)
[2017-03-12] MEDS ORDERED: LVNIS150 SC (10:50)
[2017-03-12] MEDS ORDERED: SPIR25TA PO (10:50)
[2017-03-12] MEDS ORDERED: VERA1TAB52 PO (10:50)
[2017-03-12] MEDS ORDERED: INSDGI SC (10:50)
[2017-04-15] MEDS ORDERED: FURO80TA63 PO (23:28)
[2017-04-15] MEDS ORDERED: INSDGI SC (23:32)
[2017-04-15] MEDS ORDERED: SPIR25TA PO (23:35)
[2017-04-15] MEDS ORDERED: ZNTT/150 PO (23:44)
[2017-04-15] MEDS ORDERED: NVLGI7030 SC (23:46)
== END 2016-10-21 16:44 | disposition home or self-care (01) ==
LOC: EDSEX 11:16 → EDBD 11:16 → C.EDC 11:17
DX: R10.13 Epigastric pain (principal); E11.9 Type 2 diabetes mellitus without complications; K21.9 Gastro-esophageal reflux disease without esophagitis; M10.9 Gout, unspecified; G20 Parkinson's disease; Z86.711 Personal history of pulmonary embolism; Z80.9 Family history of malignant neoplasm, unspecified; Z83.3 Family history of diabetes mellitus; Z82.49 Family history of ischemic heart disease and other diseases of the circulatory system; Z79.4 Long term (current) use of insulin; Z79.899 Other long term (current) drug therapy

== ENCOUNTER → 2016-10-29 | Outpatient (CLI) | payer OTHER ==
[~2016-10-29] MED LIST changes: +ALL100 PO; +AMLO-114 PO; +ASCO500T3 PO; +ASPEC81 PO; +CARB50TA3 PO; +CARV3.12 PO; +CARV3.122 PO; +COLC0.6T54 PO; +CRG3125 PO; +DOCU-94 PO; +DTRSR/2 PO; +DUTA1CAP25 PO; +ENOX1INJ14 SC; +FURO40TA3 PO; +FURO80TA63 PO; +IMDSR30 PO; +INSDGI SC; +ISOS-11 PO; +LOSA50TA6 PO; +LSN40 PO; +LVNIS120 SC; +LVNIS150 SQ; +METO25TA56 PO; +MIRA1TAB3 PO; +NITR-5 PO; +NVLGI/PEN SQ; +NVLGI7030 SC; -NYSP EXT; +OXYC-57 PO; +PREG1CAP34 PO; +PREG300C PO; +PRLSR20 PO; +PRT40 PO; +SENN1TAB77 PO; +SIMV20TA2 PO; +SPIR25TA PO; +SPIR25TA89 PO; +SYM100 PO; +TAMS0.4C38 PO; +VERA1TAB52 PO; +ZNT150 PO; +ZNTT/150 PO; +ZOLP10TA PO; -ZOLP10TA6 PO
--- NOTE | 2016-10-29 14:59 | DIAGNOSTIC IMAGING REPORT ---
KUB HISTORY: Generalized ABDOMINAL PAIN, CONSTIPATION COMPARISON: Abdomen and pelvis CT 10/21/2016. FINDINGS: The bowel gas pattern is unremarkable. There are no dilated loops of small bowel to suggest an obstruction. IVC filter, IVC stent, and iliac vein stents are again noted. There are 3 calcifications within the lower pole the left kidney with the largest measuring 5 mm. No ureteral calculi identified. No right renal calculi. Small amount of well-formed stool seen within the colon. No pneumoperitoneum or pneumatosis. IMPRESSION: 1. No evidence for bowel obstruction. 2. Left-sided nephrolithiasis. No hydronephrosis. 3. Small amount of well-formed stool within the colon. Electronically signed by: Silver Rhodes M.D. 10/29/2016 2:58 PM Dictated Date/Time: 10/29/2016 2:56 PM
== END | disposition home or self-care (01) ==
LOC: C.RAD 14:19
DX: R10.9 Unspecified abdominal pain (principal); K59.00 Constipation, unspecified

== ENCOUNTER 2016-11-12 16:21 | Inpatient (IN) | payer OTHER ==
[~2016-11-12] VITALS: Ht 175.3 cm; Wt 125.0 kg
[~2016-11-12 16:21] MED LIST changes: -ALL100 PO; -AMLO-114 PO; -ASCO500T3 PO; -ASPEC81 PO; -CARB50TA3 PO; -CARV3.12 PO; -CARV3.122 PO; -COLC0.6T54 PO; -CRG3125 PO; -DOCU-94 PO; -DTRSR/2 PO; -DUTA1CAP25 PO; -ENOX1INJ14 SC; -FURO40TA3 PO; -FURO80TA63 PO; -IMDSR30 PO; -INSDGI SC; -ISOS-11 PO; -LOSA50TA6 PO; -LVNIS120 SC; -LVNIS150 SQ; -METO25TA56 PO; -MIRA1TAB3 PO; -NITR-5 PO; -NVLGI/PEN SQ; -NVLGI7030 SC; -PREG1CAP34 PO; -PREG300C PO; -PRLSR20 PO; -PRT40 PO; -SENN1TAB77 PO; -SIMV20TA2 PO; -SPIR25TA PO; -SYM100 PO; -TAMS0.4C38 PO; -VERA1TAB52 PO; -ZNT150 PO; -ZNTT/150 PO; -ZOLP10TA PO
[2016-11-12] MEDS ORDERED: SODIUM CHLORIDE 0.9% 1000ML 1,000 ML IV STA (16:40)
[2016-11-12] MEDS ORDERED: SODIUM CHLORIDE 0.9% 1000ML 1,000 ML IV SCH (16:40)
[2016-11-12] MEDS ORDERED: SODIUM CHLORIDE 0.9% 500ML 500 ML IV STA (16:42)
[2016-11-12 16:48] LABS: BASO % 0.3 %; BASO ABS # 0.02 K/uL (0-0.2); COMPLETE YES; EOS % 4.6 %; IG% 0.2 %; LYMPH % 26.7 %; LYMPH ABS # 1.55 K/uL (1.2-3.4); MEAN CELL VOLUME 87.8 fL (80-100); MEAN CORPUSCULAR HEMOGLOBIN 28.5 pg (25-34); MEAN CORPUSCULAR HGB CONC 32.4 g/dl (32-36); MONO % 5.2 %; PLATELET COUNT 176 K/uL (130-400); RED BLOOD COUNT 4.67 M/uL (4.7-6.1); WHITE BLOOD COUNT 5.81 K/uL (4.8-10.8)
[2016-11-12 17:08] LABS: BLOOD UREA NITROGEN 13 mg/dl (7-18); BUN/CREATININE RATIO 10.5 (10-20); CALCIUM 8.6 mg/dl (8.5-10.1); CARBON DIOXIDE 30 mmol/L (21-32); CHLORIDE 107 mmol/L (98-107); GLUCOSE 147 mg/dl (70-99); POTASSIUM 4.1 mmol/L (3.5-5.1); SODIUM 143 mmol/L (136-145)
--- NOTE | 2016-11-12 17:08 | DIAGNOSTIC IMAGING REPORT ---
CHEST ONE VIEW PORTABLE CLINICAL HISTORY: Stroke COMPARISON STUDY: 09/05/2016 FINDINGS: The cardiac and mediastinal contours are normal. There is no evidence of focal pulmonary consolidation. There is no evidence of failure. No pleural effusions are visualized.[ IMPRESSION: No active disease in the chest. Electronically signed by: Abe Tejeda M.D. 11/12/2016 5:07 PM Dictated Date/Time: 11/12/2016 5:06 PM
--- NOTE | 2016-11-12 17:11 | DIAGNOSTIC IMAGING REPORT ---
CT HEAD WITHOUT CONTRAST (CT) CLINICAL HISTORY: Stroke HYPERTENSION, HEADACHE. COMPARISON STUDY: 08/12/2016 TECHNIQUE: Axial CT of the brain is performed from the vertex to the skull base. IV contrast was not administered for this examination. CT DOSE: 614.27 mGy.cm FINDINGS: No intra or extra-axial mass lesions are visualized. There is no CT evidence of acute cortical infarction. There is no evidence of midline shift. There is no acute hemorrhage. No calvarial fractures are visualized. There are patchy white matter hypodensities likely on a small vessel basis. There is no evidence of pathologic ventricular dilatation. There is partial opacification of an anterior left-sided ethmoid air cell. This remains similar to the prior study. IMPRESSION: No acute intracranial findings Electronically signed by: Abe Tejeda M.D. 11/12/2016 5:10 PM Dictated Date/Time: 11/12/2016 5:08 PM
[2016-11-12 17:12] LABS: CKMB/CK RATIO 1.8 (0-3.0)
[2016-11-12] MEDS ORDERED: AMLO-114 PO (17:18)
[2016-11-12] MEDS ORDERED: DUTA1CAP25 PO (17:20)
[2016-11-12] MEDS ORDERED: MIRA1TAB3 PO (17:25)
[2016-11-12] MEDS ORDERED: DTRSR/2 PO (17:25)
[2016-11-12] MEDS ORDERED: KETOROLAC TROMETHAMINE 30 MG/ML VIAL IV STA (17:26)
[2016-11-12] MEDS ORDERED: ASPIRIN 81 MG CHEW PO STA (17:26)
[2016-11-12] MEDS ORDERED: ONDANSETRON INJ 2 MG/ML 2 ML VIAL IV STA (17:44)
[2016-11-12 17:51] LABS: ALKALINE PHOSPHATASE 111 U/L (45-117); ALT/SGPT 25 U/L (12-78); AST/SGOT 14 U/L (15-37)
[2016-11-12 18:05] LABS: URINE APPEARANCE CLOUDY (CLEAR); URINE BILIRUBIN NEG (NEG); URINE COLOR YELLOW; URINE NITRITE POS (NEG); URINE PH 6.5 (4.5-7.5); URINE SPECIFIC GRAVITY 1.022 (1.000-1.030); UROBILINOGEN NEG (NEG); ZZUR CULT IF INDIC CLEAN CATCH YES
[2016-11-12] MEDS ORDERED: DiphenhydrAMINE HCL 50 MG/ML VIAL IV STA (18:11)
[2016-11-12] MEDS ORDERED: PROCHLORPERAZINE 5 MG/ML 2 ML VIAL IV STA (18:11)
[2016-11-12 18:12] LABS: PARTIAL THROMBOPLASTIN RATIO 1.1; PROTHROMBIN TIME (PATIENT) 10.5 SECONDS (9.0-12.0)
--- NOTE | 2016-11-12 18:18 | EMERGENCY ROOM VISIT NOTE ---
History Report prepared by Tyra: Olimpia Casanova Under the Supervision of: Dr. Aramis Hauser D.O. First contact with patient: 16:25 Chief Complaint: HYPERTENSION Stated Complaint: HEADACHE, HYPERTENSION History of Present Illness The patient is a 61 year old male who presents to the Emergency Room with complaints of a constant migraine beginning yesterday. The patient states that he was doing work around the house when the headache began gradually and gradually got worse. He reports that he has a history of migraines but it has been a long time since he last had one. He complains of numbness in his right arm that started about 3 hours ago and he reports that this is not unusual for him. He notes that it initially felt weak as well but is now feeling better. The patient reports that the numbness and weakness in his arm has now almost completely resolved. He notes a history of mini strokes, blood disorder, appendectomy, and blood clots. He complains of abdominal pain and nausea. The patient states that he was here 1 month ago for the same abdominal pain that he is having today and has been following up with his primary care doctor for the pain. He notes that the abdominal pain he is having today is unchanged from previous. He denies any changes in urination, changes in bowel moments, weakness or numbness in his legs, fever, cough, runny nose, sore throat, weakness, chest pain, shortness of breath, vomiting, and diarrhea. He reports that he is on Lovenox 2 times a day. Source of History: patient Onset: yesterday Position: head Quality: other (migraine) Timing: constant Associated Symptoms: + abdominal pain, + nausea, No SOB, No chest pain, No cough, No diarrhea, No fevers, No urinary symptoms, No vomiting Note: He denies any changes in bowel moments. Review of Systems See HPI for pertinent positives & negatives. A total of 10 systems reviewed and were otherwise negative. Past Medical & Surgical Medical Problems: (1) Catheter-associated urinary tract infection (2) Diabetes mellitus (3) Dyspnea (4) Gastroesophageal reflux disease (5) Gout (6) Parkinson's disease (7) Pulmonary embolism (8) Right upper extremity numbness (9) Syncope (10) Weakness Family History Cancer Diabetes mellitus FH: heart disease Hypertension Social History Smoking Status: Never Smoker Alcohol Use: none Drug Use: none Marital Status: single Housing Status: lives alone Occupation Status: retired Current/Historical Medications Scheduled Allopurinol (Allopurinol), 100 MG PO BID Amantadine HCl (Amantadine HCl), 100 MG PO BID Amlodipine (Norvasc), 10 MG PO DAILY Ascorbic Acid (Vitamin C), 500 MG PO QAM Carbidopa/Levodopa (Sinemet Cr 50MG/200MG), 1 TAB PO BID Dutasteride-Tamsulosin HCl (Dutasteride/Tamsulosin Hc 0.5-0.4 mg), 1 CAP PO HS Enoxaparin (Lovenox), 150 MG SC BID Ferrous Sulfate (Iron), 1 TAB PO DAILY Fluoxetine (Prozac), 40 MG PO QAM Furosemide (Lasix), 40 MG PO BID Insulin Aspart (Novolog Flexpen), 10 UNITS SC AC Insulin Glargine (Lantus), 40 UNITS SC BID Lisinopril (Lisinopril), 40 MG PO BID Metoprolol Tartrate (Lopressor), 25 MG PO BID Mirabegron (Myrbetriq Er), 50 MG PO DAILY Omeprazole (Prilosec), 40 MG PO BID Oxycodone/Acetaminophen 5MG/325MG (Oxycodone/Acetaminophen 5MG/325MG), 1-2 TABS PO Q4 Pregabalin (Lyrica), 300 MG PO BID Simvastatin (Zocor), 20 MG PO QPM Spironolactone (Aldactone), 25 MG PO BID Tolterodine Tartrate (Detrol LA), 2 MG PO BID Scheduled PRN Colchicine (Colcrys), 0.6 MG PO DAILY PRN for PRN Allergies Coded Allergies: Penicillins (Verified Allergy, Severe, 11/12/16) SEVERE RXN PER PT Cephalosporins (Verified Allergy, Unknown, 11/12/16) Sulfamethoxazole w/Trimethoprim (Verified Allergy, Unknown, ., 11/12/16) TAKES LASIX AT HOME Physical Exam Vital Signs Date Time Temp Pulse Resp B/P Pulse Ox O2 Delivery O2 Flow Rate FiO2 11/12/16 19:35 83 18 175/97 96 Room Air 11/12/16 18:36 89 18 188/97 98 Room Air 11/12/16 17:13 97 18 183/97 98 Room Air 11/12/16 17:12 98 Room Air 11/12/16 16:40 105 11/12/16 16:28 36.7 103 18 174/101 99 Room Air Physical Exam GENERAL: alert, sitting up in bed, disheveled, obese, chronically ill appearing , well nourished, no distress, non-toxic EYE EXAM: normal conjunctiva, PERRL and EOM's intact OROPHARYNX: no exudate, no erythema, lips, buccal mucosa, and tongue normal and mucous membranes are moist NECK: supple, no nuchal rigidity, no adenopathy, non-tender LUNGS: Clear to auscultation. Normal chest wall mechanics HEART: no murmurs, S1 normal and S2 normal ABDOMEN: abdomen soft, non-tender, normo-active bowel sounds, no masses, no rebound or guarding. BACK: Back is symmetrical on inspection and there is no deformity, no midline tenderness, no CVA tenderness. SKIN: no rashes and no bruising UPPER EXTREMITIES: upper extremities are grossly normal. LOWER EXTREMITIES: No pitting edema. NEURO EXAM: Normal sensorium, cranial nerves II-XII intact, normal speech, no weakness of arms, no weakness of legs. No drift. Finger to nose intact. Gross sensation intact. Medical Decision & Procedures ER Provider Diagnostic Interpretation: Radiology results as stated below per my review and the radiologist's interpretation: CT HEAD WITHOUT CONTRAST (CT) FINDINGS: No intra or extra-axial mass lesions are visualized. There is no CT evidence of acute cortical infarction. There is no evidence of midline shift. There is no acute hemorrhage. No calvarial fractures are visualized. There are patchy white matter hypodensities likely on a small vessel basis. There is no evidence of pathologic ventricular dilatation. There is partial opacification of an anterior left-sided ethmoid air cell. This remains similar to the prior study. IMPRESSION: No acute intracranial findings Electronically signed by: Abe Tejeda M.D. 11/12/2016 5:10 PM Dictated Date/Time: 11/12/2016 5:08 PM CHEST ONE VIEW PORTABLE FINDINGS: The cardiac and mediastinal contours are normal. There is no evidence of focal pulmonary consolidation. There is no evidence of failure. No pleural effusions are visualized.[ IMPRESSION: No active disease in the chest. Electronically signed by: Abe Tejeda M.D. 11/12/2016 5:07 PM Dictated Date/Time: 11/12/2016 5:06 PM Laboratory Results 11/12/16 16:33 Red Blood Count 4.67, Mean Corpuscular Volume 87.8, Mean Corpuscular Hemoglobin 28.5, Mean Corpuscular Hemoglobin Concent 32.4, Mean Platelet Volume 9.0, Neutrophils (%) (Auto) 63.0, Lymphocytes (%) (Auto) 26.7, Monocytes (%) (Auto) 5.2, Eosinophils (%) (Auto) 4.6, Basophils (%) (Auto) 0.3, Neutrophils # (Auto) 3.66, Lymphocytes # (Auto) 1.55, Monocytes # (Auto) 0.30, Eosinophils # (Auto) 0.27, Basophils # (Auto) 0.02 11/12/16 16:33 Test 11/12/16 16:33 11/12/16 16:53 11/12/16 17:45 11/12/16 17:46 White Blood Count 5.81 K/uL (4.8-10.8) Red Blood Count 4.67 M/uL (4.7-6.1) Hemoglobin 13.3 g/dL (14.0-18.0) Hematocrit 41.0 % (42-52) Mean Corpuscular Volume 87.8 fL (80-100) Mean Corpuscular Hemoglobin 28.5 pg (25-34) Mean Corpuscular Hemoglobin Concent 32.4 g/dl (32-36) Platelet Count 176 K/uL (130-400) Mean Platelet Volume 9.0 fL (7.4-10.4) Neutrophils (%) (Auto) 63.0 % Lymphocytes (%) (Auto) 26.7 % Monocytes (%) (Auto) 5.2 % Eosinophils (%) (Auto) 4.6 % Basophils (%) (Auto) 0.3 % Neutrophils # (Auto) 3.66 K/uL (1.4-6.5) Lymphocytes # (Auto) 1.55 K/uL (1.2-3.4) Monocytes # (Auto) 0.30 K/uL (0.11-0.59) Eosinophils # (Auto) 0.27 K/uL (0-0.5) Basophils # (Auto) 0.02 K/uL (0-0.2) RDW Standard Deviation 43.7 fL (36.4-46.3) RDW Coefficient of Variation 13.6 % (11.5-14.5) Immature Granulocyte % (Auto) 0.2 % Immature Granulocyte # (Auto) 0.01 K/uL (0.00-0.02) Anion Gap 6.0 mmol/L (3-11) Est Creatinine Clear Calc Drug Dose 86.0 ml/min Estimated GFR () 74.7 Estimated GFR (Non- 64.4 BUN/Creatinine Ratio 10.5 (10-20) Calcium Level 8.6 mg/dl (8.5-10.1) Total Bilirubin 0.3 mg/dl (0.2-1) Direct Bilirubin < 0.1 mg/dl (0-0.2) Aspartate Amino Transf (AST/SGOT) 14 U/L (15-37) Alanine Aminotransferase (ALT/SGPT) 25 U/L (12-78) Alkaline Phosphatase 111 U/L (45-117) Total Creatine Kinase 76 U/L (39-308) Creatine Kinase MB 1.4 ng/ml (0.5-3.6) Creatine Kinase MB Ratio 1.8 (0-3.0) Troponin I < 0.015 ng/ml (0-0.045) Total Protein 7.4 gm/dl (6.4-8.2) Albumin 3.3 gm/dl (3.4-5.0) Lipase 94 U/L (73-393) Bedside Prothrombin Time INR 1.1 (0.9-1.1) Urine Color YELLOW Urine Appearance CLOUDY (CLEAR) Urine pH 6.5 (4.5-7.5) Urine Specific [place] 1.022 (1.000-1.030) Urine Protein NEG (NEG) Urine Glucose (UA) NEG (NEG) Urine Ketones NEG (NEG) Urine Occult Blood TRACE (NEG) Urine Nitrite POS (NEG) Urine Bilirubin NEG (NEG) Urine Urobilinogen NEG (NEG) Urine Leukocyte Esterase LARGE (NEG) Urine WBC (Auto) >30 /hpf (0-5) Urine RBC (Auto) 0-4 /hpf (0-4) Urine Hyaline Casts (Auto) 0 /lpf (0-5) Urine Epithelial Cells (Auto) 5-10 /lpf (0-5) Urine Bacteria (Auto) 4+ (NEG) Prothrombin Time 10.5 SECONDS (9.0-12.0) Prothromb Time International Ratio 1.0 (0.9-1.1) Activated Partial Thromboplast Time 29.4 SECONDS (21.0-31.0) Partial Thromboplastin Ratio 1.1 Laboratory results per my review. Medications Administered Medications (Trade) Dose Ordered Sig/Apryl Route Start Time Stop Time Status Last Admin Dose Admin Sodium Chloride 1,000 ml @ 999 mls/hr Q1H1M STAT IV 11/12/16 16:40 11/12/16 17:40 DC 11/12/16 16:40 999 MLS/HR Sodium Chloride (Nss 500ml) 500 ml @ 999 mls/hr Q31M STAT IV 11/12/16 16:42 11/12/16 17:12 DC 11/12/16 16:42 999 MLS/HR Ketorolac Tromethamine (Toradol Inj) 30 mg NOW STAT IV 11/12/16 17:26 11/12/16 17:27 DC 11/12/16 17:33 30 MG Aspirin (Aspirin Chew) 81 mg NOW STAT PO 11/12/16 17:26 11/12/16 17:27 DC 11/12/16 17:32 81 MG Ondansetron HCl (Zofran Inj) 4 mg NOW STAT IV 11/12/16 17:44 11/12/16 17:45 DC 11/12/16 17:54 4 MG Diphenhydramine HCl (Benadryl Inj) 25 mg NOW STAT IV 11/12/16 18:11 11/12/16 18:13 DC 11/12/16 18:35 25 MG Prochlorperazine Edisylate 5 mg 5 mg NOW STAT IV 11/12/16 18:11 11/12/16 18:13 DC 11/12/16 18:34 5 MG Vancomycin HCl 2500 mg/Sodium Chloride 550 ml @ 200 mls/hr ONE STAT IV 11/12/16 18:56 11/12/16 21:40 DC 11/12/16 21:08 200 MLS/HR Aztreonam/Dextrose (Azactam IV/D5 100ml) 110 ml @ 100 mls/hr Q8H IV 11/12/16 19:00 11/12/16 21:00 DC 11/12/16 19:33 100 MLS/HR ECG Indication: weakness Rate (beats per minute): 104 Rhythm: sinus tachycardia Findings: 1st degree AV block, no ectopy, other (Normal [place]) ED Course ED COURSE: Vital signs were reviewed and showed tachycardia and hypertension The patients medical record was reviewed The above diagnostic studies were performed and reviewed. ED treatments and interventions as stated above. 1625: The patient was evaluated in room A2. A complete history and physical examination was performed. 1640: Sodium Chloride 1000 ml @ 999 mls/hr IV, Sodium Chloride 1000 ml @ 50 mls/ hr IV. 1642: Sodium Chloride 500 ml @ 999 mls/hr IV. 1726: Aspirin Chew 81mg PO, Toradol Inj 30mg IV. 1744: Zofran Inj 4mg IV. 181: Compazine Inj 5mg IV, Benadryl Inj 25mg IV. 181: I reviewed the patient's case with Dr. Cherry of [facility]. She will evaluate the patient for further management. 1817: Upon reevaluation, the patient is doing well.I discussed my findings with the patient and he understands and agrees with the treatment plan. Based on the patients age, coexisting illnesses, exam and lab findings the decision to treat as an inpatient was made. The patient remained stable while under my care. The patient will be evaluated for further management. Medical Decision Differential Diagnosis includes but is not limited to ischemic Stroke, hemorrhagic stroke, bells palsy, mass, neoplasm, migraine headache, seizure, subarachnoid hemorrhage, TIA, and transient global amnesia. Medication Reconciliation: I attest that I have personally reviewed the patient' s current medication list. Patient is a 61-year-old male with a past medical history of PEs on Lovenox for headache associated with right upper extremity numbness and weakness which resolved upon presentation. Patient does complain of chronic abdominal pain which has been present for the past month and unchanged. No signs of peritonitis. CT head was negative. Labs including CBC, BMP, LFTs, troponin, CK -MB and lipase were unremarkable. PTT and INR was negative. Chest x-ray was unremarkable. Patient was neurologically intact on my exam. He was given IV fluids, Toradol, Benadryl and Compazine. With his reported right upper extremity weakness and numbness associated with the headache is concerning for possible CVA/TIA although I feel this is unlikely. I discussed patient with internal medicine for observation overnight as I felt this was warranted. Consults Time Called: 1809 Consulting Physician: Dr. Dilip Hauser Returned Call: 1811 I reviewed the patient's case with Dr. Cherry. She will evaluate the patient for further management. Impression Primary Impression: Cephalgia Additional Impressions: TIA (transient ischemic attack) HTN (hypertension) UTI (urinary tract infection) Scribe Attestation The scribe's documentation has been prepared under my direction and personally reviewed by me in its entirety. I confirm that the note above accurately reflects all work, treatment, procedures, and medical decision making performed by me. Departure Information Dispostion Being Evaluated By Hospitalist Referrals Reza Ocasio Jr,D.O. (PCP) Patient Instructions [facility] Problem Qualifiers Primary Impression: Cephalgia Headache type: unspecified Headache chronicity pattern: unspecified pattern Intractability: not intractable Qualified Codes: R51 - Headache Additional Impressions: TIA (transient ischemic attack) Transient cerebral ischemia type: unspecified Qualified Codes: G45.9 - Transient cerebral ischemic attack, unspecified HTN (hypertension) Hypertension type: unspecified secondary hypertension Qualified Codes: I15.9 - Secondary hypertension, unspecified UTI (urinary tract infection) Urinary tract infection type: site unspecified Hematuria presence: with hematuria Qualified Codes: N39.0 - Urinary tract infection, site not specified ; R31.9 - Hematuria, unspecified
[2016-11-12 18:21] LABS: MANUAL MICROSCOPIC REQUIRED? NO; REVIEW REQ? NO
[2016-11-12] MEDS ORDERED: VANCOMYCIN INJ 2,500 MG in SODIUM CHLORIDE 0.9% 500ML 500 ML IV STA (18:56)
[2016-11-12] MEDS ORDERED: AZTREONAM IV 2,000 MG in DEXTROSE 5% 100ML 100 ML IV SCH (19:00)
[2016-11-12] MEDS ORDERED: PHARMACIST DISCHARGE MED REC CONSULT PRN (19:45)
[2016-11-12] MEDS ORDERED: MAGNESIUM HYDROXIDE SUSP 30 ML UDC PO PRN (19:45)
[2016-11-12] MEDS ORDERED: ACETAMINOPHEN 325 MG TAB PO PRN (19:45)
[2016-11-12] MEDS ORDERED: ONDANSETRON INJ 2 MG/ML 2 ML VIAL IV PRN (19:45)
[2016-11-12] MEDS ORDERED: IV FLUIDS COMPLETED PRN (20:00)
[2016-11-12] MEDS ORDERED: COLCHICINE 0.6 MG TAB PO PRN (20:00)
[2016-11-12] MEDS: OXYCODONE/ACETAMINOPHEN 5-325 TAB PO SCH ×2 (20:00→23:53)
[2016-11-12] MEDS ORDERED: METOPROLOL TARTRATE 1 MG/ML VIAL IV PRN (20:00)
--- NOTE | 2016-11-12 20:01 | History and Physical ---
History & Physical Date & Time of Service: November 12, 2016 at 19:49 Chief Complaint: Headache, Hypertension Primary Care Physician: Reza Ocasio Jr,D.O. History of Present Illness Source: patient 61 y/o M c/o headache, R arm weakness and numbness, "and my abd pain is starting to come back again but my pain pills are running low". Pt states he has had a migraine for two days. It is his typical migraine. Today, he started to have R UE weakness and n/t. He could move his arm in all rand and use his fingers still, but his arm was very weak. Pt states that is not usually part of his migraine. He has ongoing abd pain that starts R lateral lower abd and moves to his umbilical area. He states he was just admitted for this "but they didn't find anything wrong". He has ongoing nausea but has been able to tolerate PO without issue. He feels he is eating less. Pt has SOB at times at rest and with ambulation. This is not new. His chronic indwelling robert was d/ c'd almost two weeks ago and he feels he has been making urine without issue. No pain or frequency. He states he does not get headaches with his UTIs. Pt denies missing doses of BP meds, including this AM. Pt denies fever, chest pain, c/d, LE pain or swelling. ROS as noted above, otherwise neg. Past Medical/Surgical History Medical Problems: (1) Diabetes mellitus Status: Chronic (2) Gastroesophageal reflux disease Status: Chronic (3) Gout Status: Chronic (4) Parkinson's disease Status: Chronic (5) Pulmonary embolism Status: Resolved Recent indwelling robert d/c for hx of neurogenic bladder Family History Family history was reviewed; no changes noted. Social History Smoking Status: Never Smoker Alcohol Use: none Drug Use: none Marital Status: single Housing status: lives alone Occupational Status: retired Immunizations History of Tetanus Vaccine?: probably over 10 yrs ago History of Pneumococcal: apr 2004 History of Hepatitis B Vaccine: 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 Multi-Drug Resistant Organisms History of MDRO: No Allergies Coded Allergies: Penicillins (Verified Allergy, Severe, 11/12/16) SEVERE RXN PER PT Cephalosporins (Verified Allergy, Unknown, 11/12/16) Sulfamethoxazole w/Trimethoprim (Verified Allergy, Unknown, ., 11/12/16) TAKES LASIX AT HOME Home Medications Scheduled Allopurinol (Allopurinol), 100 MG PO BID Amantadine HCl (Amantadine HCl), 100 MG PO BID Amlodipine (Norvasc), 10 MG PO DAILY Ascorbic Acid (Vitamin C), 500 MG PO QAM Carbidopa/Levodopa (Sinemet Cr 50MG/200MG), 1 TAB PO BID Dutasteride-Tamsulosin HCl (Dutasteride/Tamsulosin Hc 0.5-0.4 mg), 1 CAP PO HS Enoxaparin (Lovenox), 150 MG SC BID Ferrous Sulfate (Iron), 1 TAB PO DAILY Fluoxetine (Prozac), 40 MG PO QAM Furosemide (Lasix), 40 MG PO BID Insulin Aspart (Novolog Flexpen), 10 UNITS SC AC Insulin Glargine (Lantus), 40 UNITS SC BID Lisinopril (Lisinopril), 40 MG PO BID Metoprolol Tartrate (Lopressor), 25 MG PO BID Mirabegron (Myrbetriq Er), 50 MG PO DAILY Omeprazole (Prilosec), 40 MG PO BID Oxycodone/Acetaminophen 5MG/325MG (Oxycodone/Acetaminophen 5MG/325MG), 1-2 TABS PO Q4 Pregabalin (Lyrica), 300 MG PO BID Simvastatin (Zocor), 20 MG PO QPM Spironolactone (Aldactone), 25 MG PO BID Tolterodine Tartrate (Detrol LA), 2 MG PO BID Scheduled PRN Colchicine (Colcrys), 0.6 MG PO DAILY PRN for PRN Physical Exam Vital Signs Date Time Temp Pulse Resp B/P Pulse Ox O2 Delivery O2 Flow Rate FiO2 11/12/16 19:35 83 18 175/97 96 Room Air 11/12/16 18:36 89 18 188/97 98 Room Air 11/12/16 17:13 97 18 183/97 98 Room Air 11/12/16 17:12 98 Room Air 11/12/16 16:40 105 11/12/16 16:28 36.7 103 18 174/101 99 Room Air General Appearance: no apparent distress, + obese Head: normocephalic, atraumatic Respiratory/Chest: normal breath sounds, no respiratory distress Cardiovascular: regular rate, rhythm, no edema Abdomen/GI: soft, + tenderness (diffuse) Extremities/Musculoskelatal: no calf tenderness, no pedal edema Neurologic/Psych: alert, oriented x 3 Skin: normal color, warm/dry Diagnostics Laboratory Results Results Past 24 Hours Test 11/12/16 16:33 11/12/16 16:53 11/12/16 17:45 11/12/16 17:46 Range/Units White Blood Count 5.81 4.8-10.8 K/uL Red Blood Count 4.67 4.7-6.1 M/uL Hemoglobin 13.3 14.0-18.0 g/dL Hematocrit 41.0 42-52 % Mean Corpuscular Volume 87.8 80-100 fL Mean Corpuscular Hemoglobin 28.5 25-34 pg Mean Corpuscular Hemoglobin Concent 32.4 32-36 g/dl Platelet Count 176 130-400 K/uL Mean Platelet Volume 9.0 7.4-10.4 fL Neutrophils (%) (Auto) 63.0 % Lymphocytes (%) (Auto) 26.7 % Monocytes (%) (Auto) 5.2 % Eosinophils (%) (Auto) 4.6 % Basophils (%) (Auto) 0.3 % Neutrophils # (Auto) 3.66 1.4-6.5 K/uL Lymphocytes # (Auto) 1.55 1.2-3.4 K/uL Monocytes # (Auto) 0.30 0.11-0.59 K/uL Eosinophils # (Auto) 0.27 0-0.5 K/uL Basophils # (Auto) 0.02 0-0.2 K/uL RDW Standard Deviation 43.7 36.4-46.3 fL RDW Coefficient of Variation 13.6 11.5-14.5 % Immature Granulocyte % (Auto) 0.2 % Immature Granulocyte # (Auto) 0.01 0.00-0.02 K/uL Sodium Level 143 136-145 mmol/L Potassium Level 4.1 3.5-5.1 mmol/L Chloride Level 107 98-107 mmol/L Carbon Dioxide Level 30 21-32 mmol/L Anion Gap 6.0 3-11 mmol/L Blood Urea Nitrogen 13 7-18 mg/dl Creatinine 1.20 0.60-1.40 mg/dl Est Creatinine Clear Calc Drug Dose 86.0 ml/min Estimated GFR () 74.7 Estimated GFR (Non- 64.4 BUN/Creatinine Ratio 10.5 10-20 Random Glucose 147 70-99 mg/dl Calcium Level 8.6 8.5-10.1 mg/dl Total Bilirubin 0.3 0.2-1 mg/dl Direct Bilirubin < 0.1 0-0.2 mg/dl Aspartate Amino Transf (AST/SGOT) 14 15-37 U/L Alanine Aminotransferase (ALT/SGPT) 25 12-78 U/L Alkaline Phosphatase 111 45-117 U/L Total Creatine Kinase 76 39-308 U/L Creatine Kinase MB 1.4 0.5-3.6 ng/ml Creatine Kinase MB Ratio 1.8 0-3.0 Troponin I < 0.015 0-0.045 ng/ml Total Protein 7.4 6.4-8.2 gm/dl Albumin 3.3 3.4-5.0 gm/dl Lipase 94 73-393 U/L Bedside Prothrombin Time INR 1.1 0.9-1.1 Bedside Glucose 142 70-99 mg/dl Urine Color YELLOW Urine Appearance CLOUDY CLEAR Urine pH 6.5 4.5-7.5 Urine Specific [place] 1.022 1.000-1.030 Urine Protein NEG NEG Urine Glucose (UA) NEG NEG Urine Ketones NEG NEG Urine Occult Blood TRACE NEG Urine Nitrite POS NEG Urine Bilirubin NEG NEG Urine Urobilinogen NEG NEG Urine Leukocyte Esterase LARGE NEG Urine WBC (Auto) >30 0-5 /hpf Urine RBC (Auto) 0-4 0-4 /hpf Urine Hyaline Casts (Auto) 0 0-5 /lpf Urine Epithelial Cells (Auto) 5-10 0-5 /lpf Urine Bacteria (Auto) 4+ NEG Prothrombin Time 10.5 9.0-12.0 SECONDS Prothromb Time International Ratio 1.0 0.9-1.1 Activated Partial Thromboplast Time 29.4 21.0-31.0 SECONDS Partial Thromboplastin Ratio 1.1 Microbiology Results 11/12/16 Urine Culture, Received Pending Diagnostic Radiology CT head neg for acute CXR neg for acute Impression Assessment and Plan 61 y/o M who was admitted on 11/12 for stroke-like sx R UE weakness/numbness/ h/a: possibly related to elevated BP Monitor with improved BP CT head neg for acute MRI pending ECHO pending 1st degree AV block: noted on prior EKG ECHO 2016 was WNL Abd pain: last admission this seemed possibly related to UTI UA pending Hx of recent catheter d/c for neurogenic bladder: reports no UTIs sx, UA pending DM: continue home meds Parkinson's: continue home meds HTN: Continue home meds PRN metoprolol Other: States DNR/DNI Lovenox for DVT proph as at home DM diet Level of Care Telemetry Resuscitation Status DO NOT RESUSCITATE VTE Prophylaxis VTE Risk Assessment Done? Y/N: Yes Risk Level: Low
[2016-11-12] MEDS ORDERED: DEXTROSE 50% 50 ML SYR IV PRN (20:45)
[2016-11-12] MEDS ORDERED: GLUCOSE 40% GEL 15 GM TUBE PO PRN (20:45)
[2016-11-12] MEDS ORDERED: GLUCOSE 10 TABS/TUBE PO PRN (20:45)
[2016-11-12] MEDS ORDERED: GLUCAGON FOR INJ 1 MG VIAL SQ PRN (20:45)
[2016-11-12] MEDS ORDERED: ENOXAPARIN 150 MG/1ML SYR SC SCH (21:00)
--- NOTE | 2016-11-12 21:08 | DIAGNOSTIC IMAGING REPORT ---
ULTRASOUND OF THE CAROTID ARTERIES CLINICAL HISTORY: Stroke COMPARISON STUDY: 02/27/2016 TECHNIQUE: Real-time, grayscale, and color Doppler sonography of the carotid arteries was performed. Imaging reviewed in the transverse and longitudinal planes. NASCET criteria was utilized for stenosis calcification. FINDINGS: There is mild atherosclerotic plaque present bilaterally. The peak systolic velocity within the right internal carotid artery is 57 cm/sec. The systolic velocity ratio of right internal to common carotid artery is 0.7. The peak systolic velocity within the left internal carotid artery is 51 cm/sec. The systolic velocity ratio left internal to common carotid artery is 0.4. Antegrade flow is seen in the vertebral arteries. The external carotid arteries are patent. Blood pressure in the right arm measured 185 mm/Hg. Blood pressure in the left arm measured 173 mm/Hg. IMPRESSION: No evidence of hemodynamically significant carotid stenosis. Electronically signed by: Abe Tejeda M.D. 11/12/2016 9:06 PM Dictated Date/Time: 11/12/2016 9:05 PM
[2016-11-12 21:17] VITALS: BP 185/95; PULSE 76; TEMP 36.5; O2SAT 98; Ht 175.3 cm; Wt 125.0 kg
[2016-11-12] MEDS ORDERED: ENOXAPARIN 150 MG/1ML SYR SQ ONE (22:00)
[2016-11-12] MEDS: TOLTERODINE TARTRATE LA 2 MG CAPCR PO SCH (22:15)
[2016-11-12] MEDS: METOPROLOL TARTRATE 25 MG TAB PO SCH (22:16)
[2016-11-12] MEDS: PANTOprazole SOD 40 MG TAB PO SCH (22:16)
[2016-11-12] MEDS: CARBIDOPA/LEVODOPA 50/200MG EXT REL TAB PO SCH (22:16)
[2016-11-12] MEDS: LISINOPRIL 40 MG TAB PO SCH (22:17)
[2016-11-12] MEDS: AMANTADINE HCL 100 MG CAP PO SCH (22:17)
[2016-11-12] MEDS: SIMVASTATIN 20 MG TAB PO SCH (22:17)
[2016-11-12] MEDS: ALLOPURINOL 100 MG TAB PO SCH (22:18)
[2016-11-12] MEDS: INSULIN GLARGINE SOLOSTAR 100 UNITS/ML 3 ML PEN SC SCH (22:21)
[2016-11-12 23:52] VITALS: BP 180/108; PULSE 81; TEMP 36.5; O2SAT 97
[2016-11-12] MEDS: PREGABALIN 150 MG CAP PO SCH (23:57)
[2016-11-13] VITALS (8 sets, daily range): BP systolic 136–164; BP diastolic 79–93; PULSE 55–71; TEMP 36.4–36.8; O2SAT 95–98
[2016-11-13] MEDS ORDERED: GADAVIST IV PRN (01:45)
[2016-11-13] MEDS: OXYCODONE/ACETAMINOPHEN 5-325 TAB PO SCH ×3 (04:00→10:55)
--- NOTE | 2016-11-13 04:21 | Progress Note ---
Progress Note Date of Service Nov 13, 2016. Progress Note Patient was noted to have Mobitz II on the monitor and captured on EKG. Crash cart placed at bedside and cardio consulted. Patient completely asymptomatic. We had a prolonged discussed about what a DNR meant and what a Full code meant and patient states he would like to be a full code. Order had been changed to Full code.
--- NOTE | 2016-11-13 06:45 | DIAGNOSTIC IMAGING REPORT ---
MRI OF THE BRAIN WITHOUT AND WITH IV CONTRAST CLINICAL HISTORY: Stroke. Right arm numbness. Migraine. Blurred vision. COMPARISON STUDY: MRI of the brain May 29, [address] November 12, 2016. TECHNIQUE: Utilizing a 1.5 Smitha magnet and dedicated coil, multiplanar, multiecho imaging of the brain was performed pre and postcontrast administration. IV administration of 12.8 mL of Gadavist contrast was uneventful. FINDINGS: There are no areas of restricted diffusion. No acute intracranial hemorrhage, midline shift or mass effect is present. Ventricular system is unremarkable for age. Basilar cisterns are patent. There are no extra-axial collections. No intracranial mass or pathologic enhancement is present. Scattered white matter T2 hyperintense foci suggest small vessel disease. There may be old lacunar infarcts within the bilateral basal ganglia. Calvarial signal is maintained. There is mild mucosal thickening of the frontal, ethmoid and sphenoid sinuses. IMPRESSION: 1. No acute intracranial findings. 2. No intracranial masses or pathologic enhancement. 3. Mild atrophy and mild small vessel disease. Electronically signed by: Baltazar Jacobs M.D. 11/13/2016 6:44 AM Dictated Date/Time: 11/13/2016 6:40 AM
--- NOTE | 2016-11-13 07:13 | DIAGNOSTIC IMAGING REPORT ---
MR ANGIOGRAM OF THE NECK COMBO CLINICAL HISTORY: Right arm numbness. Headache and blurry vision. COMPARISON STUDY: Carotid artery ultrasound dated 11/12/2016. TECHNIQUE: Axial 3-D [id number] MR angiography of the neck is performed. Subsequently, following the IV administration of 12.8 cc of Gadavist coronal MR angiogram of the neck was performed to corroborate the findings. 3-D reformats are created and assessed. All measurements were calculated based on NASCET criteria. Subtraction imaging was utilized. FINDINGS: Visualized portions of the thoracic aorta are normal in caliber. The aortic arch demonstrates standard 3-vessel anatomy. The subclavian arteries are widely patent bilaterally. The right common carotid artery as well as the right internal and external carotid arteries are widely patent. The left common carotid artery as well as the left internal and external carotid arteries are widely patent. The vertebral arteries are widely patent and codominant. The partially visualized intracranial vessels at the skull base appear clear. IMPRESSION: Unremarkable MR angiogram of the neck. Electronically signed by: Rodrigo Ni M.D. 11/13/2016 7:12 AM Dictated Date/Time: 11/13/2016 7:09 AM
[2016-11-13 07:28] LABS: CHOLESTEROL/HDL RATIO 3.7
[2016-11-13 07:51] LABS: ESTIMATED AVERAGE GLUCOSE 128 mg/dl; HA1C FLAG Normal (Normal)
[2016-11-13] MEDS: FUROSEMIDE 40 MG TAB PO SCH ×2 (08:23→16:13)
[2016-11-13] MEDS: SPIRONOLACTONE 25 MG TAB PO SCH ×2 (08:24→16:13)
[2016-11-13] MEDS: MIRABEGRON ER 25 MG TAB PO SCH (08:24)
[2016-11-13] MEDS: CARBIDOPA/LEVODOPA 50/200MG EXT REL TAB PO SCH ×2 (08:24→20:43)
[2016-11-13] MEDS: ASCORBIC ACID 500 MG TAB PO SCH (08:24)
[2016-11-13] MEDS: AMLODIPINE BESYLATE 5 MG TAB PO SCH (08:25)
[2016-11-13] MEDS: FERROUS SULFATE 325 MG TAB PO SCH (08:25)
[2016-11-13] MEDS: ALLOPURINOL 100 MG TAB PO SCH ×2 (08:26→20:45)
[2016-11-13] MEDS: LISINOPRIL 40 MG TAB PO SCH ×2 (08:26→20:44)
[2016-11-13] MEDS: TOLTERODINE TARTRATE LA 2 MG CAPCR PO SCH ×2 (08:26→20:42)
[2016-11-13] MEDS: FLUOXETINE HCL 20 MG CAP PO SCH (08:26)
[2016-11-13] MEDS: AMANTADINE HCL 100 MG CAP PO SCH ×2 (08:27→20:44)
[2016-11-13] MEDS: METOPROLOL TARTRATE 25 MG TAB PO SCH ×2 (08:27→20:43)
[2016-11-13] MEDS: PANTOprazole SOD 40 MG TAB PO SCH ×2 (08:27→20:43)
[2016-11-13] MEDS: ENOXAPARIN 150 MG/1ML SYR SQ SCH ×2 (08:28→20:45)
[2016-11-13] MEDS: INSULIN GLARGINE SOLOSTAR 100 UNITS/ML 3 ML PEN SC SCH ×2 (08:29→20:58)
[2016-11-13] MEDS: INSULIN ASPART 100 UNITS/ML 3 ML PEN SC SCH ×3 (08:30→16:15)
[2016-11-13] MEDS: PREGABALIN 150 MG CAP PO SCH ×2 (08:35→20:50)
[2016-11-13] MEDS ORDERED: NURSING VERBAL MED ORDER ONE (11:00)
--- NOTE | 2016-11-13 11:43 | Cardiology Consultation ---
Cardiology Consultation Date of Consultation: Nov 13, 2016 History of Present Illness Patient is a 61 year old male seen in cardiology consultation per the request of Dr Lynch evaluation of bradycardia. The patient has a complex past medical history as delineated below. He had previously been seen in inpatient cardiology consultation by Dr. Haider of our practice in February 2016. At that time he presented with exertional shortness of breath. Resting echocardiogram revealed findings consistent with possible mild to moderate asymmetric septal hypertrophy at rest with no left ventricular outflow tract gradient. Do not have a nonischemic response to dobutamine stress echocardiogram with no inducible LV outflow tract gradient. An echocardiogram reviewed by the undersigned as an outpatient in December 2015 Was interpreted as demonstrating severe concentric left ventricular hypertrophy with an ejection fraction of 60-64%. No systolic anterior motion of the anterior mitral leaflet was noted at rest and no significant left ventricular outflow tract or intracavitary gradient was detected. Patient is a long-standing history of difficult to control hypertension and subsequent hypertensive-related heart disease. The lapper concerns for medication noncompliance. The patient presented to [facility] complaining of persistent headache that had started the day prior to arrival and associated right arm numbness and weakness. Blood pressure on arrival was 174/101 with multiple elevated readings including a reading of 180/108. Most recent readings were better controlled at 137/98 at 3:30 AM and 137/83 and 8 am. Cardiology was consulted due to concerns of bradycardia. Between 3:10 AM and 3: 40 AM last night the patient was noted to have bradycardia with1 second degree heart block, Wenckebach block and ventricular rates as low as the 40B per minute range. The patient was asymptomatic during this and was sleeping. He notes no recent juan syncope episodes. He has been on chronic metoprolol with noted past history of resting tachycardia. At present the patient feels well. He denies any headache. Denies right upper extremity symptoms. History Past Medical History: 1. Hypercoagulable state with history of CHF augmentation and antiphospholipid antibody syndrome with past recurrent deep venous thrombosis significant saddle pulmonary embolism in October 2014 for which he has an indwelling inferior vena cava filter and is on chronic Lovenox injections line 2. Parkinson's disease 3. Hypertension with hypertensive heart disease 4. Obesity 5. Asymmetric versus symmetric left ventricular hypertrophy Past Surgical History: 1. Mechanical thrombolysis and angioplasty of thrombosis 2. Inferior vena cava filter, April 2015 Social History: He is a nonsmoker, nondrinker Family History: Denies any family history of heart disease Review Of Systems See above for pertinent positives & negatives. A total of 10 systems reviewed and were otherwise negative. Allergies Coded Allergies: Penicillins (Verified Allergy, Severe, 11/12/16) SEVERE RXN PER PT Cephalosporins (Verified Allergy, Unknown, 11/12/16) Sulfamethoxazole w/Trimethoprim (Verified Allergy, Unknown, ., 11/12/16) TAKES LASIX AT HOME Medications Reported Home Medications Medications Dose Route/Sig Max Daily Dose Days Date Category Zocor (Simvastatin) 20 Mg Tab 20 Mg PO QPM 11/12/16 Reported Detrol LA (Tolterodine Tartrate) 2 Mg Capcr 2 Mg PO BID 90 11/12/16 Reported Myrbetriq Er (Mirabegron) 50 Mg Tab 50 Mg PO DAILY 11/12/16 Reported Dutasteride/Tamsulosin Hc 0.5-0.4 mg (Dutasteride-Tamsulosin HCl) 1 Cap Cap 1 Cap PO HS 11/12/16 Reported Norvasc (Amlodipine Besylate) 10 Mg Tab 10 Mg PO DAILY 11/12/16 Reported Lasix (Furosemide) 40 Mg Tab 40 Mg PO BID 10/21/16 Reported Lisinopril 40 Mg Tab 40 Mg PO BID 10/21/16 Reported Aldactone (Spironolactone) 25 Mg Tab 25 Mg PO BID 10/21/16 Reported Lovenox (Enoxaparin Sodium) 150 Mg/1 Ml Inj 150 Mg SC BID 09/05/16 Reported Oxycodone/Acetaminophen 5MG/325MG (Oxycodone/Acetaminophen) 1 Tab Tab 1-2 Tabs PO Q4 30 08/15/16 Rx Prozac (Fluoxetine HCl) 40 Mg Cap 40 Mg PO QAM 08/12/16 Reported Colcrys (Colchicine) 0.6 Mg Tab 0.6 Mg PO DAILY PRN 08/12/16 Reported Vitamin C (Ascorbic Acid) 500 Mg Tab 500 Mg PO QAM 05/14/16 Reported Iron (Ferrous Sulfate) 325 Mg Tab 1 Tab PO DAILY 05/14/16 Reported Lantus (Insulin Glargine) 100 Unit/Ml Inj 40 Units SC BID 05/14/16 Reported Novolog Flexpen (Insulin Aspart) 100 Units/Ml Inj 10 Units SC AC 02/28/16 Rx Sinemet Cr 50MG/200MG (Carbidopa/Levodopa) Tabcr 1 Tab PO BID 02/24/16 Reported Amantadine HCl 100 Mg Cap 100 Mg PO BID 02/24/16 Reported Lopressor (Metoprolol Tartrate) 25 Mg Tab 25 Mg PO BID 02/24/16 Reported Lyrica (Pregabalin) 300 Mg Cap 300 Mg PO BID 02/24/16 Reported Allopurinol 100 Mg Tab 100 Mg PO BID 02/24/16 Reported Prilosec (Omeprazole) 40 Mg Cap 40 Mg PO BID 02/24/16 Reported Physical Exam Vital Signs (Last 8hrs): Last 8 Hrs Date Time Temp Pulse Resp B/P (MAP) Pulse Ox O2 Delivery O2 Flow Rate FiO2 11/13/16 08:00 36.5 66 20 137/83 (101) 96 Room Air 11/13/16 08:00 Room Air 11/13/16 04:00 Room Air 11/13/16 03:31 36.4 55 20 137/89 (105) 97 Room Air General Appearance: Alert and Oriented x3. NAD. Head: Normocephalic Atraumatic. Eyes: PERRLA, EOMI, conjunctiva and sclera clear Neck: Supple. No carotid bruits noted. No JVD. No HJD. Respiratory: Breath sounds clear to auscultation bilaterally. No w/r/r. Cardiovascular: Reg rate and rhythm. S1 and S2 noted. No murmurs, rubs, gallops. PMI non displace. Abdomen: Normal bowel sounds, soft nontender. no abdominal bruits. Extremities: No edema, no clubbing or cyanosis. distal pulses 2/4 bilaterally. Neuro: No focal deficits. Psychiatric: Normal affect. Data Last Resulted 11/12/16 16:33 Red Blood Count 4.67, Mean Corpuscular Volume 87.8, Mean Corpuscular Hemoglobin 28.5, Mean Corpuscular Hemoglobin Concent 32.4, Mean Platelet Volume 9.0, Neutrophils (%) (Auto) 63.0, Lymphocytes (%) (Auto) 26.7, Monocytes (%) (Auto) 5.2, Eosinophils (%) (Auto) 4.6, Basophils (%) (Auto) 0.3, Neutrophils # (Auto) 3.66, Lymphocytes # (Auto) 1.55, Monocytes # (Auto) 0.30, Eosinophils # (Auto) 0.27, Basophils # (Auto) 0.02 Last Resulted 11/12/16 16:33 Past 24 Hours Test 11/12/16 16:33 11/12/16 17:46 11/13/16 01:55 11/13/16 09:40 Range/Units Creatine Kinase MB 1.4 0.5-3.6 ng/ml Creatine Kinase MB Ratio 1.8 0-3.0 Total Creatine Kinase 76 39-308 U/L Troponin I < 0.015 < 0.015 < 0.015 0-0.045 ng/ml Prothromb Time International Ratio 1.0 0.9-1.1 Prothrombin Time 10.5 9.0-12.0 SECONDS EKG performed 11/12/16 at 1625 Denson: Sinus tachycardia 104 bpm with first- degree AV block EKG performed 11/13/16 3:44 AM feels symptoms with her with Mobitz type I second- degree heart block, Wenckebach block, rate of 48 bpm. Assessment & Plan Impression: 61-year-old male 1. Transient type I second degree heart block, resolved at present, a symptomatic, occurred during hours of sleep 2. Patient presented with headache and transient right arm weakness, possible migraine headache syndrome, TIA, or symptoms due to hypertensive urgency 3. 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 History of hypertension, hypertensive heart disease 5. History of Parkinson's disease Discussion/recommendations: The patient states that he has not missed any recent doses of his blood pressure medications. At present, the patient's headache is resolved, and his blood pressure has been much improved in the last 2 measurements. I recommend that we continue to monitor him for the next 24 hours to make sure his blood pressure stable and to monitor his heart rate. At present I reduced his metoprolol dose to 12.5 mg twice a day. He is severe concentric left jugular hypertrophy somewhat hyperdynamic LV systolic function the past, beta vanna therapy is indicated. I question if perhaps the bradycardia may be related to underlying obstructive sleep apnea. The patient is unaware of whether he snores or if he has sleep apnea and this will have to be explored as an outpatient. A repeat echocardiogram has been requested and will be reviewed. Thus far his MRI, MRA have been negative for findings suggestive of stroke or significant stenosis. Jadiel Medrano, DO
[2016-11-13] MEDS: OXYCODONE HCL IR 5 MG TAB (IMMEDIATE RELEASE) PO PRN ×2 (12:27→18:20)
[2016-11-13] MEDS ORDERED: PERFLUTREN LIPID MICROSPHERE (DEFINITY) IV ONE (14:34)
--- NOTE | 2016-11-13 17:11 | ECHOCARDIOGRAM REPORT ---
*NOTICE TO RECEIVING DEMOCRAT AGENCY This information is strictly Confidential and protected under [place] law. [place] law prohibits you from making any further disclosure of this information unless further disclosure is expressly permitted by the written consent of the person to whom it pertains or is authorized by law. A general authorization for the release of medical or other information is not sufficient for this purpose. Hospital accepts no responsibility if the information is made available to any other person, INCLUDING THE PATIENT. Interpretation Summary * Name: GARY SCHWAB Study Date: 11/13/2016 02:14 PM BP: 138/83 mmHg * Patient Location: C.2T\S\S234\S\1 HR: 61 * : 1955 (M/d/yyyy) Gender: Male Height: 70 in * Age: 61 yrs Ethnicity: CA Weight: 283 lb * Ordering Physician: Marilin Cherry * Referring Physician: Self, Referred * Performed By: Pam Cordero RDCS * * Reason For Study: 1ST DEGREE AV BLOCK * BSA: 2.4 m2 * The study was technically limited. * The study was technically difficult. * Grossly normal valvular structure and function. * -- Conclusions -- * The study was technically limited. * The study was technically difficult. * The left ventricle is grossly normal size. * The left ventricular wall motion is normal. * Left ventricular systolic function is normal. * Ejection Fraction = 55-60%. * The right ventricular systolic function is normal. * The left atrial size is normal. * Right atrial size is normal. * Grossly normal valvular structure and function. Procedure Details * A contrast injection of Definity was performed to improve assessment of LV function. * Contrast was injected into an intravenous site in the left arm. * One vial of Definity ultrasound contrast was diluted in normal saline to a total volume of 10 ml. A total of '2' ml of solution was administered during imaging. * Lot # [id number] of Definity utilized for procedure. * Expiration date 1 DEC 30. * The attending nurse who injected the contrast agent was LUCAS RAZO. Left Ventricle * The left ventricle is grossly normal size. * Ejection Fraction = 55-60%. * Left ventricular systolic function is normal. * The left ventricular wall motion is normal. Right Ventricle * The right ventricle is grossly normal size. * The right ventricular systolic function is normal. Atria * The left atrial size is normal. * Right atrial size is normal. * No ASD detected; PFO is not assessed. Mitral Valve * The mitral valve is grossly normal. * Significant mitral regurgitation is absent. Tricuspid Valve * The tricuspid valve is not well visualized, but is grossly normal. * Significant tricuspid regurgitation is absent. Aortic Valve * The aortic valve is tricuspid. The leaflet thickness if normal. There is no aortic stenosis, and no significant insufficiency. * The aortic valve opens well. * There is no significant aortic regurgitation. Pulmonic Valve * The pulmonic valve is not well visualized. * There is no significant pulmonary regurgitation. Great Vessels * The aortic root and proximal ascending aorta are normal sized. Pericardium/Pleural * There is no pericardial effusion. MMode 2D Measurements and Calculations IVSd 1.6 cm IVSs 1.9 cm LVIDd 3.5 cm LVIDs 2.5 cm LVPWd 1.7 cm LVPWs 2.3 cm IVS/LVPW 0.93 FS 28.9 % EDV(Teich) 52.6 ml ESV(Teich) 22.8 ml EF(Teich) 56.6 % EDV(cubed) 44.7 ml ESV(cubed) 16.1 ml EF(cubed) 64.1 % % IVS thick 17.0 % % LVPW thick 33.2 % LV mass(C)d 231.0 grams LV mass(C)dI 95.5 grams/m\S\2 LV mass(C)s 233.6 grams LV mass(C)sI 96.5 grams/m\S\2 SV(Teich) 29.8 ml SI(Teich) 12.3 ml/m\S\2 SV(cubed) 28.7 ml SI(cubed) 11.8 ml/m\S\2 Ao root diam 3.2 cm Ao root area 8.3 cm\S\2 LA dimension 4.2 cm LA/Ao 1.3 LVAd ap4 29.5 cm\S\2 LVLd ap4 8.6 cm EDV(MOD-sp4) 81.1 ml EDV(sp4-el) 85.8 ml LVAs ap4 17.6 cm\S\2 LVLs ap4 7.2 cm ESV(MOD-sp4) 35.1 ml ESV(sp4-el) 36.7 ml EF(MOD-sp4) 56.7 % EF(sp4-el) 57.2 % LVAd ap2 27.4 cm\S\2 LVLd ap2 9.4 cm EDV(MOD-sp2) 66.0 ml EDV(sp2-el) 67.5 ml LVAs ap2 15.8 cm\S\2 LVLs ap2 7.7 cm ESV(MOD-sp2) 26.9 ml ESV(sp2-el) 27.6 ml EF(MOD-sp2) 59.3 % EF(sp2-el) 59.1 % LVLd %diff 9.0 % EDV(MOD-bp) 74.8 ml LVLs %diff 6.5 % ESV(MOD-bp) 30.4 ml EF(MOD-bp) 59.3 % SV(MOD-sp4) 45.9 ml SI(MOD-sp4) 19.0 ml/m\S\2 SV(MOD-sp2) 39.1 ml SI(MOD-sp2) 16.2 ml/m\S\2 SV(MOD-bp) 44.4 ml SI(MOD-bp) 18.3 ml/m\S\2 SV(sp4-el) 49.1 ml SI(sp4-el) 20.3 ml/m\S\2 SV(sp2-el) 39.9 ml SI(sp2-el) 16.5 ml/m\S\2 Doppler Measurements and Calculations MV E max janine 83.4 cm/sec MV A max janine 58.2 cm/sec MV E/A 1.4 MV dec time 0.22 sec Ao V2 max 108.6 cm/sec Ao max PG 4.7 mmHg Ao max PG (full) 2.4 mmHg LV V1 max PG 2.3 mmHg LV V1 max 75.5 cm/sec
--- NOTE | 2016-11-13 18:18 | Progress Note ---
Subjective Date of Service: Nov 13, 2016. Subjective Pt evaluation today including: conversation w/ patient, physical exam, chart review, lab review, review of inpatient medication list feeling much better - arm working better now. no headache no blurred vision no other sx. updated on working dx (hypertensive urgency) and answered all questions to the best of my ability. no YANN that he knows of, but also does not protest that it might be a possibility Problem List Medical Problems: (1) Back pain Status: Acute (2) Soni infection Status: Acute (3) Cephalgia Status: Acute (4) Complicated UTI (urinary tract infection) Status: Acute (5) Elevated lactic acid level Status: Acute (6) Fall Status: Acute (7) Head trauma Status: Acute (8) HTN (hypertension) Status: Acute (9) Lower abdominal pain Status: Acute (10) Neck pain Status: Acute (11) Neurogenic bladder Status: Acute (12) Pyelonephritis Status: Acute (13) Sepsis Status: Acute (14) Skin breakdown Status: Acute (15) Spinal stenosis Status: Acute (16) TIA (transient ischemic attack) Status: Acute (17) Urinary tract infection Status: Acute (18) UTI (urinary tract infection) Status: Acute (19) UTI (urinary tract infection) Status: Acute (20) Vomiting Status: Acute Review of Systems ros otherwise negative except for as above Objective Vital Signs Date Time Temp Pulse Resp B/P (MAP) Pulse Ox O2 Delivery O2 Flow Rate FiO2 11/13/16 16:06 36.5 68 20 136/79 (98) 98 Room Air 11/13/16 16:00 95 Room Air 11/13/16 13:15 36.4 61 20 138/83 (101) 95 Room Air 11/13/16 12:00 Room Air 11/13/16 08:00 36.5 66 20 137/83 (101) 96 Room Air 11/13/16 08:00 Room Air 11/13/16 04:00 Room Air 11/13/16 03:31 36.4 55 20 137/89 (105) 97 Room Air 11/13/16 01:38 69 164/90 (114) 11/13/16 00:00 Room Air 11/12/16 23:52 36.5 81 20 180/108 (132) 97 Room Air 11/12/16 21:17 36.5 76 20 185/95 98 Room Air 11/12/16 21:09 81 18 172/101 97 11/12/16 19:35 83 18 175/97 96 Room Air 11/12/16 18:36 89 18 188/97 98 Room Air Physical Exam General Appearance: no apparent distress Eyes: EOMI ENT: hearing grossly normal Neck: trachea midline Respiratory/Chest: no respiratory distress, no accessory muscle use Extremities: normal range of motion Neurologic/Psychiatric: helper metal hanging II-XII nml as tested, no motor/sensory deficits, alert, normal mood/affect Skin: normal color, warm/dry Laboratory Results Last 24 Hours Test 11/12/16 21:25 11/13/16 01:55 11/13/16 05:50 11/13/16 07:01 Bedside Glucose 155 mg/dl 126 mg/dl Troponin I < 0.015 ng/ml Estimated Average Glucose 128 mg/dl Hemoglobin A1c 6.1 % Triglycerides Level 137 mg/dl Cholesterol Level 146 mg/dl HDL Cholesterol 39 mg/dl LDL Cholesterol, Calculated 80 mg/dl VLDL Cholesterol, Calculated 27 mg/dl Cholesterol/HDL Ratio 3.7 Test 11/13/16 09:40 11/13/16 16:43 Troponin I < 0.015 ng/ml Bedside Glucose 73 mg/dl Assessment and Plan 61 y/o M who was admitted on 11/12 for stroke-like sx R UE weakness/numbness/ h/a: appearing most likely hypertensive urgency MRI no acute findings other secondary w/u reassuring thus far, echo pending at the time i saw him BP improved, sx resolved. continue to follow neuro exams, follow BP, titrate meds as needed 1st degree AV block: noted on prior EKG ECHO 2016 was WNL, current echo pending cardiology raises good thought that YANN could easily be precipitating nighttime livan and wenkebach - outpt sleep study Abd pain: last admission this seemed possibly related to UTI Urine culture positive but no other current sx c/w UTI repeat culture, continue to follow, trend vitals, repeat CBC in AM, check CRP hesitate to treat without warrant given neurogenic bladder and higher chances of asymptomatic bacteriuria DM: continue home meds (sugars reasonable inpt, A1c 6.1, maybe even can wean meds as outpt) Parkinson's: continue home meds Other: States DNR/DNI Lovenox for DVT proph as at home DM diet
[2016-11-13] MEDS: SIMVASTATIN 20 MG TAB PO SCH (20:45)
[2016-11-14] MEDS: OXYCODONE HCL IR 5 MG TAB (IMMEDIATE RELEASE) PO PRN (04:01)
[2016-11-14 04:27] VITALS: BP 155/83; PULSE 69; TEMP 36.5; O2SAT 99
[2016-11-14 05:55] LABS: BASO % 0.5 %; BASO ABS # 0.03 K/uL (0-0.2); COMPLETE YES; EOS % 5.1 %; HEMATOCRIT 41.8 % (42-52); IG% 0.4 %; LYMPH % 27.3 %; LYMPH ABS # 1.54 K/uL (1.2-3.4); MEAN CELL VOLUME 88.9 fL (80-100); MEAN CORPUSCULAR HEMOGLOBIN 28.3 pg (25-34); MEAN CORPUSCULAR HGB CONC 31.8 g/dl (32-36); NEUT % 58.7 %; PLATELET COUNT 154 K/uL (130-400); WHITE BLOOD COUNT 5.65 K/uL (4.8-10.8)
[2016-11-14 06:42] VITALS: BP 151/94; PULSE 68; O2SAT 98
[2016-11-14] MEDS ORDERED: NITROGLYCERIN SL SPR 4.9 GM BTL SL PRN (07:00)
[2016-11-14] MEDS ORDERED: GI COCKTAIL PO ONE (07:00)
[2016-11-14] MEDS ORDERED: ALUMINUM/MAGNESIUM SUSP 18 ML, LIDOCAINE HCL 2% VISCOUS SOLN 6 ML, BARCODE IDENTIFIER 1 EA PO ONE ×2 (07:30)
[2016-11-14 08:01] VITALS: BP 134/85; PULSE 68; TEMP 36.7; O2SAT 96
[2016-11-14] MEDS: ENOXAPARIN 150 MG/1ML SYR SQ SCH (08:05)
[2016-11-14] MEDS: INSULIN ASPART 100 UNITS/ML 3 ML PEN SC SCH ×2 (08:09→11:00)
[2016-11-14] MEDS: INSULIN GLARGINE SOLOSTAR 100 UNITS/ML 3 ML PEN SC SCH (08:10)
[2016-11-14] MEDS: METOPROLOL TARTRATE 25 MG TAB PO SCH (08:11)
[2016-11-14] MEDS: LISINOPRIL 40 MG TAB PO SCH (08:11)
[2016-11-14] MEDS: MIRABEGRON ER 25 MG TAB PO SCH (08:12)
[2016-11-14] MEDS: AMANTADINE HCL 100 MG CAP PO SCH (08:12)
[2016-11-14] MEDS: PANTOprazole SOD 40 MG TAB PO SCH (08:13)
[2016-11-14] MEDS: CARBIDOPA/LEVODOPA 50/200MG EXT REL TAB PO SCH (08:13)
[2016-11-14] MEDS: TOLTERODINE TARTRATE LA 2 MG CAPCR PO SCH (08:13)
[2016-11-14] MEDS: FERROUS SULFATE 325 MG TAB PO SCH (08:13)
[2016-11-14] MEDS: AMLODIPINE BESYLATE 5 MG TAB PO SCH (08:14)
[2016-11-14] MEDS: SPIRONOLACTONE 25 MG TAB PO SCH (08:14)
[2016-11-14] MEDS: ALLOPURINOL 100 MG TAB PO SCH (08:14)
[2016-11-14] MEDS: FLUOXETINE HCL 20 MG CAP PO SCH (08:15)
[2016-11-14] MEDS: FUROSEMIDE 40 MG TAB PO SCH (08:16)
[2016-11-14] MEDS: ASCORBIC ACID 500 MG TAB PO SCH (08:16)
[2016-11-14] MEDS: PREGABALIN 150 MG CAP PO SCH (08:20)
[2016-11-14] MEDS ORDERED: ISOSORBIDE MONONITRATE 30 MG TABCR PO SCH (09:00)
[2016-11-14] MEDS ORDERED: ASPEC81 PO (10:42)
[2016-11-14] MEDS ORDERED: IMDSR30 PO (10:42)
[2016-11-14] MEDS ORDERED: LVNIS150 SQ (10:42)
[2016-11-14] MEDS ORDERED: LPR25 PO (10:42)
--- NOTE | 2016-11-14 10:51 | Discharge Instructions ---
Discharge Instructions Date of Service Nov 14, 2016. Admission Reason for Admission: Right Upper Extremity Numbness Discharge Discharge Diagnosis / Problem: hypertensive urgency Discharge Goals Goal(s): Diagnostic testing, Therapeutic intervention Activity Recommendations Activity Limitations: resume your previous activity . Instructions / Follow-Up Instructions / Follow-Up hypertensive urgency -a hypertensive urgency is a stroke like syndrome where the blood pressure gets high enough that there is vasospasm (squeeze down of the blood vessels) that leads to poor blood flow of an area of your brain -a form of TIA (transient ischemic attack), this lack of blood flow resolves before there is actual brain tissue and permanent weakness --- but it is like a "warning shot" that tells us we need to manage the blood pressure more aggressively to keep you out of trouble and reduce the risk for having a true and permanent stroke -we had to do a little "shuffling" of your blood pressure medications to try to affect better control but also not have your heart rates going so slow, so for now: -we've added imdur (isosorbide), a long acting nitrate medication. it does a nice job reducing blood pressure, but does so predominantly dilating veins. because of this, if you notice a lightheadedness when you stand, or new leg swelling, talk to Dr Ocasio about possibly having to switch to something different (neither are very likely to happen, but can) -we've changed your metoprolol over to carvedilol (coreg) 3.125mg twice a day -we've added an 81mg aspirin to act as a small blood vessel blood thinner. most of the time people tolerate being on an 81mg aspirin along with an anticoagulant like lovenox just fine - but of course if you're running into bleeding issues, we'll need to re-evaluate the need for the aspirin with refractory (hard to treat) high blood pressure, there are a few main possibilities to consider: -some people are just difficult genetically to treat and require multiple medications -if you have untreated sleep apnea (as would be suspicious with the heart rate issues) that can also sometimes lead to difficult to treat blood pressure -if you had any kind of stenosis/blockage to the arteries leading to your kidneys, your kidneys then can make too much hormones that raise blood pressure in response (this one seems least likely, but is certainly worth talking with Dr Ocasio about- typically workup starts with just an ultrasound with doppler to look at blood flow) Diabetes -your diabetes is under excellent control - with an A1c of 6.1%. since you're having a few lows a week, it sounds like it will be time to back down on insulins some. since you're seeing Dr Ocasio next week and he's who will continue to help guide you with insulin dosing, it's better for him to make the dose adjustments urinary tract infection -your culture is still growing, slowly. based on prior culture results, macrobid should work (and in terms of antibiotics, it's a urinary tract-only antibiotic so there's less risk of cross-resistance and whole body side effects ) -- i'll keep an eye out on your culture results, and if we need to adjust the antibiotic coverage, i'll let you know Risk Factors for Stroke: You can reduce your chances of stroke by working with your medical provider to adopt a healthy lifestyle. Some specific ways to lower your chance of stroke are: * If you are a smoker, now is the time to stop smoking cigarettes * If you are diabetic, improve the control of your blood sugars * Avoid excessive amounts of alcohol * Control high blood pressure * Lose weight if you are overweight * Be sure to lead an active lifestyle * Eat a healthy diet low in salt, cholesterol and fat You should know about other risk factors for stroke that you are unable to control. These include: * Age 55 years or older * Male gender * Certain racial groups: , or / * Family History of Stroke, Mini stroke or Heart Attack * Sickle Cell Disease Follow Up: It is important for you to keep your follow up appointments with your medical provider. Current Hospital Diet Patient's current hospital diet: Diabetes Type 2 Diet Discharge Diet Recommended Diet: Diabetes Type 2 Diet Pending Studies Studies pending at discharge: no Laboratory Results Hemoglobin A1c Test 11/13/16 05:50 Range/Units Estimated Average Glucose 128 mg/dl Hemoglobin A1c 6.1 H 4.5-5.6 % Lipid Panel Test 11/13/16 05:50 Range/Units Triglycerides Level 137 0-150 mg/dl Cholesterol Level 146 0-200 mg/dl HDL Cholesterol 39 mg/dl Cholesterol/HDL Ratio 3.7 LDL Cholesterol, Calculated 80 mg/dl Medical Emergencies . Who to Call and When: Medical Emergencies: Call 911 immediately if you experience any of the following warning signs and symptoms of Stroke: * Sudden numbness or weakness of the face, arm or leg, especially on one side of the body * Sudden confusion, trouble speaking or understanding * Sudden trouble seeing in one or both eyes * Sudden trouble walking, dizziness, loss of balance or coordination * Sudden severe headache with no cause Do not delay calling 911 if you experience any warning signs or symptoms of a stroke. Delay in seeking medical attention may affect what treatments can be given to you. . Non-Emergent Contact Non-Emergency issues call your: Primary Care Provider, Revenue Coordinator, Specialist (we'll want you to have a sleep study in the near future - our nurse navigator is working on setting up a home sleep study for you) . . "Provider Documentation" section prepared by Aramis Lynch. . Stroke Core Measures Reason no t-PA for Stroke: Treatment not indicated Reason no antithrom by day 2: Treatment provided - N/A Reason no antithrom at D/C: Treatment provided - N/A Reason no statin at D/C: Treatment provided - N/A Reason no anticoag w/a fib: Treatment not indicated VTE Core Measure Inpt VTE Proph given/why not?: Enoxaparin (Lovenox)SQ (anticoagulation dosing)
[2016-11-14] MEDS ORDERED: ASPIRIN 81 MG ECTAB PO STA (11:06)
--- NOTE | 2016-11-14 11:08 | Cardiology Follow-Up ---
Subjective General Date of Service: Nov 14, 2016. Chief Complaint: follow up up HTN, bradycardia Pt evaluation today including: conversation w/ patient, conversation w/ family , physical exam History of Present Illness The patient is a 61 year old male seen in follow up. ZEPEDA is resolved. BP readings improved yesterday , above goal overnight, improved this am after mediations. No additional prolonged episodes of type I second degree AV block, SR and sinus arrhythmia noted. Asymptomatic. Allergies Coded Allergies: Penicillins (Verified Allergy, Severe, 11/12/16) SEVERE RXN PER PT Cephalosporins (Verified Allergy, Unknown, 11/12/16) Sulfamethoxazole w/Trimethoprim (Verified Allergy, Unknown, ., 11/12/16) TAKES LASIX AT HOME Social History Smoking Status: Never Smoker Hx Tobacco Use In Past Year?: No Hx Alcohol Use - Type And Amou: No Hx Substance Use - Type And Am: No Problem List Medical Problems: (1) Back pain Status: Acute (2) Soni infection Status: Acute (3) Cephalgia Status: Acute (4) Complicated UTI (urinary tract infection) Status: Acute (5) Elevated lactic acid level Status: Acute (6) Fall Status: Acute (7) Head trauma Status: Acute (8) HTN (hypertension) Status: Acute (9) Lower abdominal pain Status: Acute (10) Neck pain Status: Acute (11) Neurogenic bladder Status: Acute (12) Pyelonephritis Status: Acute (13) Sepsis Status: Acute (14) Skin breakdown Status: Acute (15) Spinal stenosis Status: Acute (16) TIA (transient ischemic attack) Status: Acute (17) Urinary tract infection Status: Acute (18) UTI (urinary tract infection) Status: Acute (19) UTI (urinary tract infection) Status: Acute (20) Vomiting Status: Acute Physical Exam Vital Signs Last Vital Signs Documentation Date Time Temp Pulse Resp B/P (MAP) Pulse Ox O2 Delivery O2 Flow Rate FiO2 11/14/16 08:01 36.7 68 18 134/85 (101) 96 Room Air Physical Exam Neck: supple Lungs: Auscultation: no wheezing, no rales/crackles Cardiovascular: Heart Auscultation: RRR, no murmurs, no rubs Extremities: no edema Assessment and Plan Assessment and Plan Impression: 61-year-old male 1. Transient type I second degree heart block, resolved at present, a symptomatic, occurred during hours of sleep 2. Patient presented with headache and transient right arm weakness, possible migraine headache syndrome, TIA, or symptoms due to hypertensive urgency -MRI, MRI negative, neuro symptoms resolved 3. 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 History of hypertension, hypertensive heart disease 5. History of Parkinson's disease Recommendations: Change metoprolol to coreg for better BP effect, less HR effect. Outpt sleep study recommended to exclude YANN, as YANN can provoke bradycardia with sleep. Echo reviewed. Technically limited study due to patient characteristics. Mild to mod concentric LVH noted on contrast images. Stable from my standpoint for DC. Laboratory Results Last 24 Hours Test 11/13/16 16:43 11/13/16 20:54 11/14/16 05:40 11/14/16 06:37 Bedside Glucose 73 mg/dl 156 mg/dl 73 mg/dl White Blood Count 5.65 K/uL Red Blood Count 4.70 M/uL Hemoglobin 13.3 g/dL Hematocrit 41.8 % Mean Corpuscular Volume 88.9 fL Mean Corpuscular Hemoglobin 28.3 pg Mean Corpuscular Hemoglobin Concent 31.8 g/dl Platelet Count 154 K/uL Mean Platelet Volume 9.0 fL Neutrophils (%) (Auto) 58.7 % Lymphocytes (%) (Auto) 27.3 % Monocytes (%) (Auto) 8.0 % Eosinophils (%) (Auto) 5.1 % Basophils (%) (Auto) 0.5 % Neutrophils # (Auto) 3.32 K/uL Lymphocytes # (Auto) 1.54 K/uL Monocytes # (Auto) 0.45 K/uL Eosinophils # (Auto) 0.29 K/uL Basophils # (Auto) 0.03 K/uL RDW Standard Deviation 44.3 fL RDW Coefficient of Variation 13.5 % Immature Granulocyte % (Auto) 0.4 % Immature Granulocyte # (Auto) 0.02 K/uL C-Reactive Protein 1.34 mg/dl
[2016-11-14] MEDS ORDERED: NITR-5 PO (11:15)
[2016-11-14] MEDS ORDERED: CARV3.122 PO (11:15)
[2016-11-14 11:41] VITALS: BP 135/82; PULSE 76; TEMP 36.4; O2SAT 96
--- NOTE | 2016-11-14 14:08 | Discharge Summary ---
Discharge Summary Date of Service Nov 14, 2016. 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 The study was technically difficult. Grossly normal valvular structure and function. -- Conclusions -- The study was technically limited. The study was technically difficult. The left ventricle is grossly normal size. The left ventricular wall motion is normal. Left ventricular systolic function is normal. Ejection Fraction = 55-60%. The right ventricular systolic function is normal. The left atrial size is normal. Right atrial size is normal. Grossly normal valvular structure and function. Procedure Details A contrast injection of Definity was performed to improve assessment of LV function. Contrast was injected into an intravenous site in the left arm. One vial of Definity ultrasound contrast was diluted in normal saline to a total volume of 10 ml. A total of '2' ml of solution was administered during imaging. Lot # [id number] of Definity utilized for procedure. Expiration date DEC 30. The attending nurse who injected the contrast agent was LUCAS RAZO. Left Ventricle The left ventricle is grossly normal size. Ejection Fraction = 55-60%. Left ventricular systolic function is normal. The left ventricular wall motion is normal. Right Ventricle The right ventricle is grossly normal size. The right ventricular systolic function is normal. Atria The left atrial size is normal. Right atrial size is normal. No ASD detected; PFO is not assessed. Mitral Valve The mitral valve is grossly normal. Significant mitral regurgitation is absent. Tricuspid Valve The tricuspid valve is not well visualized, but is grossly normal. Significant tricuspid regurgitation is absent. Aortic Valve The aortic valve is tricuspid. The leaflet thickness if normal. There is no aortic stenosis, and no significant insufficiency. The aortic valve opens well. There is no significant aortic regurgitation. Pulmonic Valve The pulmonic valve is not well visualized. There is no significant pulmonary regurgitation. Great Vessels The aortic root and proximal ascending aorta are normal sized. Pericardium/Pleural There is no pericardial effusion. [~ rep ct add3]] MRI OF THE BRAIN WITHOUT AND WITH IV CONTRAST CLINICAL HISTORY: Stroke. Right arm numbness. Migraine. Blurred vision. COMPARISON STUDY: MRI of the brain May 29, [address] November 12, 2016. TECHNIQUE: Utilizing a 1.5 Smitha magnet and dedicated coil, multiplanar, multiecho imaging of the brain was performed pre and postcontrast administration. IV administration of 12.8 mL of Gadavist contrast was uneventful. FINDINGS: There are no areas of restricted diffusion. No acute intracranial hemorrhage, midline shift or mass effect is present. Ventricular system is unremarkable for age. Basilar cisterns are patent. There are no extra-axial collections. No intracranial mass or pathologic enhancement is present. Scattered white matter T2 hyperintense foci suggest small vessel disease. There may be old lacunar infarcts within the bilateral basal ganglia. Calvarial signal is maintained. There is mild mucosal thickening of the frontal, ethmoid and sphenoid sinuses. IMPRESSION: 1. No acute intracranial findings. 2. No intracranial masses or pathologic enhancement. 3. Mild atrophy and mild small vessel disease. Electronically signed by: Baltazar Jacobs M.D. 11/13/2016 6:44 AM Dictated Date/Time: 11/13/2016 6:40 AM [~ rep ct add3]] ULTRASOUND OF THE CAROTID ARTERIES CLINICAL HISTORY: Stroke COMPARISON STUDY: 02/27/2016 TECHNIQUE: Real-time, grayscale, and color Doppler sonography of the carotid arteries was performed. Imaging reviewed in the transverse and longitudinal planes. NASCET criteria was utilized for stenosis calcification. FINDINGS: There is mild atherosclerotic plaque present bilaterally. The peak systolic velocity within the right internal carotid artery is 57 cm/sec. The systolic velocity ratio of right internal to common carotid artery is 0.7. The peak systolic velocity within the left internal carotid artery is 51 cm/sec. The systolic velocity ratio left internal to common carotid artery is 0.4. Antegrade flow is seen in the vertebral arteries. The external carotid arteries are patent. Blood pressure in the right arm measured 185 mm/Hg. Blood pressure in the left arm measured 173 mm/Hg. IMPRESSION: No evidence of hemodynamically significant carotid stenosis. Electronically signed by: Abe Tejeda M.D. 11/12/2016 9:06 PM Dictated Date/Time: 11/12/2016 9:05 PM [~ rep ct add3]] MR ANGIOGRAM OF THE NECK COMBO CLINICAL HISTORY: Right arm numbness. Headache and blurry vision. COMPARISON STUDY: Carotid artery ultrasound dated 11/12/2016. TECHNIQUE: Axial 3-D [id number] MR angiography of the neck is performed. Subsequently, following the IV administration of 12.8 cc of Gadavist coronal MR angiogram of the neck was performed to corroborate the findings. 3-D reformats are created and assessed. All measurements were calculated based on NASCET criteria. Subtraction imaging was utilized. FINDINGS: Visualized portions of the thoracic aorta are normal in caliber. The aortic arch demonstrates standard 3-vessel anatomy. The subclavian arteries are widely patent bilaterally. The right common carotid artery as well as the right internal and external carotid arteries are widely patent. The left common carotid artery as well as the left internal and external carotid arteries are widely patent. The vertebral arteries are widely patent and codominant. The partially visualized intracranial vessels at the skull base appear clear. IMPRESSION: Unremarkable MR angiogram of the neck. Electronically signed by: Rodrigo Vilbert, M.D. CT HEAD WITHOUT CONTRAST (CT) CLINICAL HISTORY: Stroke HYPERTENSION, HEADACHE. COMPARISON STUDY: 08/12/2016 TECHNIQUE: Axial CT of the brain is performed from the vertex to the skull base. IV contrast was not administered for this examination. CT DOSE: 614.27 mGy.cm FINDINGS: No intra or extra-axial mass lesions are visualized. There is no CT evidence of acute cortical infarction. There is no evidence of midline shift. There is no acute hemorrhage. No calvarial fractures are visualized. There are patchy white matter hypodensities likely on a small vessel basis. There is no evidence of pathologic ventricular dilatation. There is partial opacification of an anterior left-sided ethmoid air cell. This remains similar to the prior study. IMPRESSION: No acute intracranial findings Electronically signed by: Abe Tejeda M.D. 11/12/2016 5:10 PM CHEST ONE VIEW PORTABLE CLINICAL HISTORY: Stroke COMPARISON STUDY: 09/05/2016 FINDINGS: The cardiac and mediastinal contours are normal. There is no evidence of focal pulmonary consolidation. There is no evidence of failure. No pleural effusions are visualized.[ IMPRESSION: No active disease in the chest. Electronically signed by: Abe Tejeda M.D. 11/12/2016 5:07 PM Dictated Date/Time: 11/12/2016 5:06 PM Last Resulted CBC 11/14/16 05:40 Red Blood Count 4.70, Mean Corpuscular Volume 88.9, Mean Corpuscular Hemoglobin 28.3, Mean Corpuscular Hemoglobin Concent 31.8, Mean Platelet Volume 9.0, Neutrophils (%) (Auto) 58.7, Lymphocytes (%) (Auto) 27.3, Monocytes (%) (Auto) 8.0, Eosinophils (%) (Auto) 5.1, Basophils (%) (Auto) 0.5, Neutrophils # (Auto) 3.32, Lymphocytes # (Auto) 1.54, Monocytes # (Auto) 0.45, Eosinophils # (Auto) 0.29, Basophils # (Auto) 0.03 Last Resulted BMP 11/12/16 16:33 Consultations: cardiology Medication Reconciliation New Medications: Aspirin (Aspirin EC Low Dose) 81 Mg Ectab 1 TAB PO DAILY, #30 TAB Carvedilol (Coreg) 3.125 Mg Tab 1 TAB PO BID for 30 Days, #60 TAB 3 Refills Nitrofurantoin Monohyd Macrocr (Macrobid) 100 Mg Cap 100 MG PO BID, #10 CAP Enoxaparin (Lovenox) 150 Mg/1 Ml Inj 129 MG SQ Q12, #1 UNIT Isosorbide Mononitrate (Isosorbide Mononitrate ER) 30 Mg Tabcr 30 MG PO QAM, #30 TAB Continued Medications: Allopurinol (Allopurinol) 100 Mg Tab 100 MG PO BID Amantadine HCl (Amantadine HCl) 100 Mg Cap 100 MG PO BID Amlodipine (Norvasc) 10 Mg Tab 10 MG PO DAILY, TAB Ascorbic Acid (Vitamin C) 500 Mg Tab 500 MG PO QAM Carbidopa/Levodopa (Sinemet Cr 50MG/200MG) Tabcr 1 TAB PO BID Colchicine (Colcrys) 0.6 Mg Tab 0.6 MG PO DAILY PRN for PRN Dutasteride-Tamsulosin HCl (Dutasteride/Tamsulosin Hc 0.5-0.4 mg) 1 Cap Cap 1 CAP PO HS Ferrous Sulfate (Iron) 325 Mg Tab 1 TAB PO DAILY Fluoxetine (Prozac) 40 Mg Cap 40 MG PO QAM Furosemide (Lasix) 40 Mg Tab 40 MG PO BID, TAB Insulin Aspart (Novolog Flexpen) 100 Units/Ml Inj 10 UNITS SC AC, #1 BOX 1 Refill Insulin Glargine (Lantus) 100 Unit/Ml Inj 40 UNITS SC BID Lisinopril (Lisinopril) 40 Mg Tab 40 MG PO BID Mirabegron (Myrbetriq Er) 50 Mg Tab 50 MG PO DAILY, TAB Omeprazole (Prilosec) 40 Mg Cap 40 MG PO BID Oxycodone/Acetaminophen 5MG/325MG (Oxycodone/Acetaminophen 5MG/325MG) 1 Tab Tab 1-2 TABS PO Q4 for Pain for 30 Days Pregabalin (Lyrica) 300 Mg Cap 300 MG PO BID Simvastatin (Zocor) 20 Mg Tab 20 MG PO QPM, TAB Spironolactone (Aldactone) 25 Mg Tab 25 MG PO BID, TAB Tolterodine Tartrate (Detrol LA) 2 Mg Capcr 2 MG PO BID for 90 Days, #180 CAP 3 Refills Discontinued Medications: Enoxaparin (Lovenox) 150 Mg/1 Ml Inj 150 MG SC BID Metoprolol Tartrate (Lopressor) 25 Mg Tab 25 MG PO BID Discharge Exam Physical Exam: General Appearance: no apparent distress Eyes: EOMI ENT: hearing grossly normal Neck: trachea midline Respiratory/Chest: no respiratory distress, no accessory muscle use Extremities: normal inspection 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, alert, normal mood/affect Skin: normal color, warm/dry Hospital Course 61 y/o M who was admitted on 11/12 for stroke-like sx R UE weakness/numbness/ h/a: appearing most likely hypertensive urgency MRI no acute findings other secondary w/u reassuring BP meds adjusted, BP improved, symptoms resolved asa 81mg daily (discussed risks/benefits) 1st degree AV block: noted on prior EKG, [facility] ECHO 2016 was WNL, current echo pending cardiology raises good thought that YANN could easily be precipitating nighttime livan and wenkebach - outpt sleep study metoprolol changed to coreg 3.125mg bid Abd pain: last admission this seemed possibly related to UTI Urine culture positive - initially nothing that appeared c/w UTI - but he notes today a little bit of dysuria and urgency -based on prior cultures - macrobid BID, will await further sensitivities and adjust if needed as outpt DM: continue home meds (sugars reasonable inpt, A1c 6.1, maybe even can wean meds as outpt - has had some lows - but we discussed and agreed to have this go through Dr Ocasio since he manages insulins) Parkinson's: continue home meds stable for home Total Time Spent: Greater than 30 minutes This includes examination of the patient, discharge planning, medication reconciliation, and communication with other providers. Discharge Instructions Please refer to the electronic Patient Visit Report (Discharge Instructions) for additional information. Additional Copies To Rayshawn Medrano D.O.; Reza Ocasio Jr, D.O.
[2016-11-14] MEDS ORDERED: CARVEDILOL 3.125 MG TAB PO SCH (21:00)
--- NOTE | 2016-11-19 12:06 | EDITING REQUIRED CODING QUERY ---
SUPPORTING DIAGNOSIS NEEDED Dr. Cherry, A supporting diagnosis is required for the test/procedure performed on this patient in order for us to be reimbursed by the patient's insurance. Please provide a supporting diagnosis for the following test/procedure listed below next to the test name along with your signature. *If there is no additional diagnosis for this patient that would support the following test/procedure please document that below next to the test/procedure. Test(s)/Procedure(s) that require a supporting diagnosis: * ([id number]) MRA HEAD, NECK A DIAGNOSIS: * ([id number]) (CAROTID DOP) DUPLEX NECK ARTER DIAGNOSIS: DATE OF SERVICE: 11/12/16 RUE numbness and weakness, headache as documented in H&P Provider Signature: JAS Date: __11/19/16 Thank you Erwin [facility] Information Management Once completed, please kindly fax back to [phone] For questions please call [phone]
[2017-01-02] MEDS ORDERED: FURO40TA3 PO (11:45)
[2017-01-02] MEDS ORDERED: INSDGI SC (19:52)
[2017-01-23] MEDS ORDERED: PREG300C PO (12:38)
[2017-01-23] MEDS ORDERED: SYM100 PO (12:38)
[2017-01-23] MEDS ORDERED: ALL100 PO (12:38)
[2017-01-23] MEDS ORDERED: CARB50TA3 PO (12:44)
[2017-01-23] MEDS ORDERED: SIMV20TA2 PO (17:27)
[2017-03-12] MEDS ORDERED: PRT40 PO (10:50)
[2017-03-12] MEDS ORDERED: LVNIS150 SC (10:50)
[2017-03-12] MEDS ORDERED: VERA1TAB52 PO (10:50)
[2017-03-12] MEDS ORDERED: SPIR25TA PO (10:50)
[2017-03-12] MEDS ORDERED: INSDGI SC (10:50)
[2017-03-12] MEDS ORDERED: FURO80TA63 PO (10:50)
[2017-03-12] MEDS ORDERED: ZNT150 PO (10:50)
[2017-04-15] MEDS ORDERED: FURO80TA63 PO (23:28)
[2017-04-15] MEDS ORDERED: INSDGI SC (23:32)
[2017-04-15] MEDS ORDERED: SPIR25TA PO (23:35)
[2017-04-15] MEDS ORDERED: ZNTT/150 PO (23:44)
[2017-04-15] MEDS ORDERED: NVLGI7030 SC (23:46)
== END 2016-11-14 11:50 | disposition home or self-care (01) | DRG 305 ==
LOC: ENRESERVTM → ENRESERVDT → EDBD 16:21 → C.EDA 16:23 → C.2T 19:47 → OBSVTOIN 20:00 → EDBEDREQ 20:01
PROVIDERS: ADMIT Family Medicine; ATTEND Family Medicine
DX: I16.0 Hypertensive urgency (principal); N39.0 Urinary tract infection, site not specified; Z68.41 Body mass index [BMI] 40.0-44.9, adult; R00.1 Bradycardia, unspecified; E66.9 Obesity, unspecified; R53.1 Weakness; I44.1 Atrioventricular block, second degree; E11.9 Type 2 diabetes mellitus without complications; I51.7 Cardiomegaly; G43.909 Migraine, unspecified, not intractable, without status migrainosus; K21.9 Gastro-esophageal reflux disease without esophagitis; M10.9 Gout, unspecified; G20 Parkinson's disease; Z87.448 Personal history of other diseases of urinary system; Z79.899 Other long term (current) drug therapy; Z86.2 Personal history of diseases of the blood and blood-forming organs and certain disorders involving the immune mechanism; Z79.01 Long term (current) use of anticoagulants; Z86.711 Personal history of pulmonary embolism; Z86.79 Personal history of other diseases of the circulatory system; Z86.718 Personal history of other venous thrombosis and embolism; Z79.4 Long term (current) use of insulin

== ENCOUNTER → 2016-11-17 | Outpatient (CLI) | payer OTHER ==
[~2016-11-17] MED LIST changes: +ALL100 PO; +AMLO-114 PO; +ASCO500T3 PO; +ASPEC81 PO; +CARB50TA3 PO; +CARV3.12 PO; +CARV3.122 PO; +COLC0.6T54 PO; +CRG3125 PO; +DTRSR/2 PO; +DUTA1CAP25 PO; -DXY100 PO; +ENOX1INJ14 SC; -FLM4 PO; +FURO40TA3 PO; +FURO80TA63 PO; +IMDSR30 PO; +INSDGI SC; +ISOS-11 PO; +LOSA50TA6 PO; -LPR25 PO; +LVNIS120 SC; +LVNIS150 SQ; +METO25TA56 PO; +MIRA1TAB3 PO; +NITR-5 PO; +NVLGI/PEN SQ; +NVLGI7030 SC; +PREG1CAP34 PO; +PREG300C PO; +PRLSR20 PO; +PRT40 PO; +SIMV20TA2 PO; +SPIR25TA PO; +SYM100 PO; +TAMS0.4C38 PO; +VERA1TAB52 PO; +ZNT150 PO; +ZNTT/150 PO; +ZOLP10TA PO
--- NOTE | 2016-11-18 07:34 | PAP/PSG TECHNICIAN REPORT ---
[facility] State Director Polysomnogram Report Study name: None Report date: 11/18/2016 Study date: 11/17/2016 Referring Physician: Reza Ocasio Name: GARY SCHWAB Interpreting Physician: Jeremy Cody D.O. Date of : 1955 State Director: Sahra Wilson PSGT. Sex: Male Age: 61 StudyType: PSG Weight: 283 lbs Height: 61 years, Height 70" BMI: 40.6 Medications: SEE LIST OF 23 MEDICATIONS IN CHART. Patient History 61 YR. OLD MALE IN ROOM 7, PRESENTS TONIGHT FOR A DIAGNOSTIC SLEEP STUDY. PT. 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 Parameters Monitored NPSG: E1-M2, E2-M1, Fp1-M2, Fp2-M1, F3-M2, F4-M2, F4-M1, C3-M2, C4-M2, C4-M1, O1-M2, O2-M2, O2-M1, T3-M2, T4-M1, P3-M2, P4-M1, CHIN1, CHIN2, HR, EKG, Legs, PFLOW, SNOR, FLOW, CFLOW, Tidal Volume, THOR, ABDO, SpO2, PLTH, CPRESS, ETCO2 Wave, ETCO2, pH Sleep Architecture Sleep Stages Time at Lights Off 10:41:04 PM STAGES Time (min.) TST (%) Time at Lights On 5:37:04 AM Wake 20.5 -- Total Recording Time (TRT) 417.00 min. N1 12.5 3 Total Sleep Period (TSP) 401.5 min. N2 301.0 76 Total Sleep Time (TST) 395.5min. N3 41.5 10 Awake Time 21.5 min. REM 40.5 10 Wake after Sleep Onset 6.5 min. Sleep Efficiency (SE) 95 % Sleep Onset Latency (LYNN) 14.0 min. Number of Stage 1 Shifts None Awakenings 7 Stage Changes 30 Number of REM periods 2 REM 40.5 10 REM Latency 254.0 min. NREM 355.0 90 Body Position Analysis Supine Right Left Side Prone Vertical Total Sleep Time (min.) 416.0 0.0 0.0 0.00 0.0 0.0 Total Sleep Time (%) 100% 0% 0% 0 0% N/A% Total Sleep Time REM (min.) 40.5 0.0 0.0 None 0.0 0.0 Total Sleep Time NREM (min.) 355.0 0.0 0.0 None 0.0 0.0 Intermittent Wake (min.) 20.5 0.0 0.0 None 0.0 0.0 Total Sleep Period (%) 100% None None None None None Arousals Myoclonus (PLM) * Events Count Index Events Count Index Spontaneous 48 7 Events Awake (PLMW) 0 0.0 Respiratory 11 1.7 Events Asleep w/ Arousal (PLMA) 22 3.3 PLM 22 3 Events Asleep w/o Arousal (PLMS) 209 31.7 Snoring 0 0 Total Asleep 231 35.0 Total 81 12 Total 231 33 Respiratory Analysis * CA OA MA CH H RERA Total Count 0 1 0 0 95 0 96 Index 0.0 0.2 0.0 0 14.4 0 14.6 Mean Duration 0.0 16.6 0.0 0.00 20.1 0.0 20.1 Longest Duration 0.0 16.6 0.0 0.00 0.0 0.0 47.8 Respiratory Event Summary Total Supine ~Supine Right Left Prone REM NREM Apneas Count 1 1 N/A N/A N/A N/A 0 1 Index 0.2 0 N/A N/A N/A N/A 0 0 Hypopneas (4% Desat) Count 95 95 N/A N/A N/A N/A 2 93 Index 14.4 14.4 N/A N/A N/A N/A 3.0 15.7 Apneas & All Hypopneas Count 96 96 N/A N/A N/A N/A 2 94 Index 14.6 15 N/A N/A N/A N/A 3.0 15.9 Respiratory Events (Derrick Engineer+All Hyp+RERA) Count 96 96 N/A N/A N/A N/A 2 94 Index 14.6 15 N/A N/A N/A N/A 3.0 15.9 Respiratory Related Arousal Count 11 96 N/A N/A N/A N/A 0 11 Index 1.7 2 N/A N/A N/A N/A 0 2 Snoring Analysis Supine Right Left Prone REM NREM Total Snore duration 1.1 min Snores count 25 N/A N/A N/A 2 23 25 Snore mean duration 2.8 Sec Snores index 4 N/A N/A N/A 3.0 3.9 3.8 TST with snoring (%) 0.3% SpO2 Analysis Total REM NREM Awake <50% 0.0 min. 0.0 min. 0.0 min. 0.0 min. 51 - 60% 0.0 min. 0.0 min. 0.0 min. 0.0 min. 61 - 70% 0.0 min. 0.0 min. 0.0 min. 0.0 min. 71 - 80% 0.0 min. 0.0 min. 0.0 min. 0.0 min. 81 - 90% 53.8 min. 10.3 min. 40.1 min. 3.4 min. 91 - 100% 362.2 min. 30.2 min. 314.9 min. 17.1 min. Average 92 92 92 92 Minimum SpO2 81 85 81 86 Desaturation Event Index 17.6 20.7 18.3 0.0 # Desat. Events below 89% 56 8 48 0 Time(%) with Saturation below 89% 3.2 0.4 2.7 0.1 Time(min.) with Saturation below 89% 13.4 1.8 11.0 0.6 Heart Rate Analysis End Tidal CO2 Analysis Min (bpm) Max (bpm) Average (bpm) TSP (mins) % of TSP Awake 63 83 76 Above 55 mmHg 0.0 0.0 NREM 63 85 70 50-55 mmHg 0.0 0.0 REM 64 86 71 45-50 mmHg 318.1 80.4 Overall 63 86 70 40-45 mmHg 72.4 18.3 35-40 mmHg 4.8 1.2 30-35 mmHg 0.3 0.1 Average ETCO2 0.0 Supplemental O2 Values Minimum O2 level: None Value Start Time End Time State Director Comments PSG Study Mr. Schwab slept in the supine positions. No cardiac arrhythmia or PLM's noted. No bruxism noted. Snoring was noted and scored as a 2 on a scale of 1 through 5. (0=no snoring, 5=snoring loud enough to be heard through a closed door or down the [address] way) Mr. Schwab awoke to use the restroom zero times during the night. Mr. Schwab stated, I slept better than I have in a long time. The final report will be interpreted and signed by a sleep physician. The completed physician report will then be placed in the patient medical record. Pt. slept well he usually sleeps in a recliner at home, he did sleep at at a 45-degree angle. He did display respiratory events throughout the study. Mild snoring was heard at times'. slept supine the entire study. Therapy (cm H2O) 0 TIB (min.) 416.0 TST (min.) 395.5 Sleep Onset (min.) 14.0 REM Onset From Sleep (min.) 254.0 Sleep Efficiency % 95 Wakefulness (%) 5 Wakefulness (min.) 21.5 NREM 1 (%) 3 NREM 1 (min.) 12.5 NREM 2 (%) 76 NREM 2 (min.) 301.0 NREM 3 (%) 10 NREM 3 (min.) 41.5 REM (%) 10 REM (min.) 40.5 # Arousals 81 Arousal Index 12 # Snore 25 Snore Index 3.8 AHI 14.6 AHI Supine 15 AHI Non-Supine N/A NREM AHI 15.9 REM AHI 3.0 RDI 14.6 # Obstructive Apnea 1 # Central Apnea 0 # Mixed Apnea 0 # Hypopneas 95 RERAs 0 Total Respiratory Events 97 Time Below SpO2 89% (min.) 12.8 Mean NREM SpO2 (%) 92 Mean REM SpO2 (%) 92 Mean Sleep SpO2 (%) 92 Min NREM SpO2 (%) 81 Min REM SpO2 (%) 85 Position Supine (min.) 416.0 Position Non-supine (min.) 0.0 LM Index Sleep 35.0 LM Index NREM 36.8 LM Index REM 19.3 Mean Heart Rate (bpm) 70 Min Heart Rate (bpm) 63
--- NOTE | 2016-11-24 16:59 | POLYSOMNOGRAPH REPORT ---
REFERRING PHYSICIAN: Dr. Reza Ocasio. CLINICAL DATA: The patient is a 61-year-old male whose BMI is 40.6. He was hospitalized recently with hypertensive urgency and he was found to have nocturnal bradycardia. He is referred for a sleep study to rule out obstructive sleep apnea. SLEEP ARCHITECTURE: The total sleep period was 401.5 minutes. The total sleep time was 395.5 minutes. Sleep efficiency was normal at 95%. Sleep onset latency was 14 minutes. Wake after sleep onset was 6.5 minutes. The REM latency was prolonged to 254 minutes. There were 2 REM periods during the night. Sleep consisted of stage N1 3%, stage N2 76%, stage N3 10%, and stage REM 10%. AROUSAL DATA: The patient had 81 arousals including 48 spontaneous arousals, 11 respiratory arousals, 22 PLM arousals. The arousal index was 12. PERIODIC LIMB MOVEMENTS DATA: The patient had 231 periodic limb movements of sleep for an index of 35.0. There were 22 events associated with arousals for a PLM arousal index of only 3.3. EKG: The underlying cardiac rhythm was normal sinus. The cardiac rates ranged from 63-86 beats per minute. The average heart rate was 70 beats per minute. No significant arrhythmias were noted. RESPIRATORY DATA: The patient had a total of 1 obstructive apnea and 95 hypopneas. The hypopneas were scored according to the 4% desaturation rule. The apnea hypopnea index was elevated at 14.6. This would represent mild to moderate sleep apnea. OXIMETRY DATA: The average saturation for the night was 92%. The minimum saturation was 81%. The patient had a total of 13.4 minutes with saturations less than 89%. PRICING CONSULTANT COMMENTS: Mr. Gonzalez slept in the supine position. No bruxism noted. Snoring was noted and scored as a 2 on a scale of 1 through 5. The patient stated after this study that he slept better than he had in a long time. IMPRESSION: 1. Obstructive sleep apnea -- mild to moderate. 2. Periodic limb movement disorder. COMMENTS: The patient had normal sleep efficiency. There was increased stage N2 sleep and decreased REM. He had a moderate amount of periodic limb movements, but with few arousals. The apnea hypopnea index was [id number] with an apnea-hypopnea index of 14.6. In light of his history of hypertension with recent hypertensive urgency as well as his history of cardiac arrhythmia, it would be advised that he be treated with nasal CPAP. RECOMMENDATIONS: 1. It is advised that the patient be treated with nasal CPAP. This could be accomplished through auto CPAP. Alternatively, he could be referred back for a CPAP titration in the sleep laboratory. 2. Weight loss is advised in light of the elevation of body mass index at 30.6. 3. It is suggested that the patient avoid sleeping in the supine position. He was supine for the entire night of this sleep study. 4. It is doubtful the patient needs treatment at present for the underlying limb movement disorder. It would be advised that the sleep apnea be treated first with clinic followup afterwards. SAIGE
== END | disposition home or self-care (01) ==
LOC: C.NEUR 21:00
PROVIDERS: ATTEND Family Medicine
DX: I10 Essential (primary) hypertension (principal); R00.1 Bradycardia, unspecified; G47.33 Obstructive sleep apnea (adult) (pediatric); G47.61 Periodic limb movement disorder

== ENCOUNTER 2016-12-22 12:04 | Emergency (ER) | payer OTHER ==
[~2016-12-22] VITALS: Ht 175.3 cm; Wt 130.0 kg
[~2016-12-22 12:04] MED LIST changes: -ALL100 PO; -ASCO500T3 PO; -CARB50TA3 PO; -CARV3.12 PO; -COLC0.6T54 PO; -CRG3125 PO; -DUTA0.5C PO; -ENOX1INJ14 SC; -FURO40TA3 PO; -FURO80TA63 PO; -INSDGI SC; -ISOS-11 PO; -LOSA50TA6 PO; -LVNIS120 SC; -LVNIS150 SC; -METO25TA56 PO; -NVLGI/PEN SQ; -NVLGI7030 SC; -OXYC-57 PO; -PREG1CAP34 PO; -PREG300C PO; -PRLSR20 PO; -PRT40 PO; -SIMV20TA2 PO; -SPIR25TA PO; -SYM100 PO; -TAMS0.4C38 PO; -VERA1TAB52 PO; -ZNT150 PO; -ZNTT/150 PO; -ZOLP10TA PO
[2016-12-22 12:30] VITALS: TEMP 36.7; Ht 175.3 cm; Wt 130.0 kg
[2016-12-22] MEDS ORDERED: METO25TA56 PO (12:41)
[2016-12-22] MEDS ORDERED: CARV3.12 PO (12:41)
[2016-12-22] MEDS ORDERED: SODIUM CHLORIDE 0.9% 1000ML 1,000 ML IV STA (13:30)
[2016-12-22] MEDS ORDERED: ONDANSETRON INJ 2 MG/ML 2 ML VIAL IV STA (13:30)
[2016-12-22] MEDS ORDERED: MoRPHine SULFATE 10 MG/ML CARP/VIAL IV PRN (13:30)
[2016-12-22 13:41] LABS: BASO % 0.3 %; BASO ABS # 0.02 K/uL (0-0.2); COMPLETE YES; EOS % 4.9 %; HEMATOCRIT 42.9 % (42-52); IG% 0.3 %; LYMPH % 26.8 %; LYMPH ABS # 1.64 K/uL (1.2-3.4); MEAN CELL VOLUME 88.1 fL (80-100); MEAN CORPUSCULAR HGB CONC 32.9 g/dl (32-36); MEAN PLATELET VOLUME 9.3 fL (7.4-10.4); MONO % 7.2 %; NEUT % 60.5 %; PLATELET COUNT 185 K/uL (130-400); RED BLOOD COUNT 4.87 M/uL (4.7-6.1); WHITE BLOOD COUNT 6.11 K/uL (4.8-10.8)
[2016-12-22] MEDS ORDERED: MoRPHine SULFATE 2 MG/ML CARP ONE (13:45)
[2016-12-22] MEDS ORDERED: MoRPHine SULFATE 4 MG/ML 1 ML CARP\\VIAL ONE (13:45)
[2016-12-22 13:51] LABS: PARTIAL THROMBOPLASTIN RATIO 1.2; PROTHROMBIN TIME (PATIENT) 10.9 SECONDS (9.0-12.0)
[2016-12-22 14:30] LABS: BUN/CREATININE RATIO 10.9 (10-20); CALCIUM 9.2 mg/dl (8.5-10.1); CREATININE 1.1 mg/dl (0.60-1.40); POTASSIUM 4.1 mmol/L (3.5-5.1)
[2016-12-22 14:56] LABS: MANUAL MICROSCOPIC REQUIRED? NO; REVIEW REQ? NO; URINE APPEARANCE CLEAR (CLEAR); URINE BILIRUBIN NEG (NEG); URINE COLOR YELLOW; URINE NITRITE NEG (NEG); URINE PH 5.5 (4.5-7.5); URINE SPECIFIC GRAVITY 1.025 (1.000-1.030); UROBILINOGEN NEG (NEG)
--- NOTE | 2016-12-22 15:26 | DIAGNOSTIC IMAGING REPORT ---
KUB HISTORY:61 yearsMalelower abd pain COMPARISON: 10/29/2016 TECHNIQUE: KUB radiograph FINDINGS: Aortobiiliac stent graft again noted. IVC filter appears unchanged. There are at least 3 calculi within the expected region of the inferior pole left kidney again seen measuring up to 4 mm. No calculi along the expected course of the ureters. Bowel gas pattern is nonobstructive. No fracture. IMPRESSION: 1. Left-sided nephrolithiasis redemonstrated, unchanged from comparison. 2. Nonobstructive bowel gas pattern. The above report was generated using voice recognition software. It may contain grammatical, syntax or spelling errors. Electronically signed by: Rosas Granado 12/22/2016 3:24 PM Dictated Date/Time: 12/22/2016 3:22 PM
[2016-12-22] MEDS ORDERED: OPTIRAY 320 IV PRN (16:45)
--- NOTE | 2016-12-22 16:55 | DIAGNOSTIC IMAGING REPORT ---
CT ANGIOGRAM OF THE CHEST CLINICAL HISTORY: Chest pain, hemoptysis, history of pulmonary embolism. COMPARISON STUDY: 02/25/2016 TECHNIQUE: Following the IV administration of 89 mL of [id number]-320, CT angiogram of the thorax was performed from the thoracic inlet to the lung bases utilizing the pulmonary embolus protocol. Images are reviewed in the axial, sagittal, and coronal planes. IV contrast was administered without complication. MIP imaging was performed. CT DOSE: 619.97 mGy.cm FINDINGS: No pathologically enlarged axillary mediastinal or hilar lymph nodes were visualized. There was no evidence of thoracic aortic dilatation. There were no pulmonary artery filling defects to indicate acute pulmonary embolism. No pleural effusions are visualized. There is lower lobe bronchial wall thickening and mucous plugging. There is a stable 6 mm right upper lobe pulmonary nodule. There is left azygous vein continuation. There are multiple chest wall varicosities. There is ankylosis the dorsal spine. IMPRESSION: 1. No CT evidence of acute pulmonary embolism 2. Lower lobe bronchial wall thickening and mucous plugging 3. Stable 6 mm right upper lobe pulmonary nodule. No further follow-up is indicated. Electronically signed by: Abe Tejeda M.D. 12/22/2016 4:53 PM Dictated Date/Time: 12/22/2016 4:48 PM
--- NOTE | 2016-12-22 17:09 | EMERGENCY ROOM VISIT NOTE ---
ED Visit Note First contact with patient: 13:27 I have personally seen and evaluated the patient with the physician business support assistant. I agree with the diagnostic/management decisions and have personally been involved in these decisions and agree with the diagnosis.
[2016-12-22 17:31] VITALS: BP 131/73; PULSE 79; O2SAT 91
--- NOTE | 2016-12-22 23:41 | EMERGENCY ROOM VISIT NOTE ---
ED Visit Note First contact with patient: 13:07 Chief Complaint: Chest pain, lower abdominal pain and headache. History of Present Illness: Mr. Gonzalez is a 61 year-old white male who is brought to the ED via ambulance accompanied by his son with multiple complaints including chest pain, lower abdominal pain and a headache. 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 Patient reports a acute onset of left lateral chest pain that started last night at 9 PM, approximately 15 hours ago, while he was at rest. He places his discomfort over the axillary line lateral to the nipple. Since that time the pain has been constant. The pain is currently described as throbbing. The pain is nonradiating. The pain worsens with deep inspiration and palpation. He rates his discomfort 8/10. He has not identified any alleviating factors related to the pain. He reports taking a Percocet at 9 AM, approximately 3.5 hours before he arrived in the emergency department, without relief of his discomfort. He does report he has a chronic cough which is productive of large amounts of sputum but since the onset of pain he reports he has been coughing up bright red blood; this is similar to his previous PA symptoms. Additionally he reports he has been having ongoing bilateral lower abdominal pain for the last 2-3 months; I did review the medical records and he was here in early October of this year and was seen for right upper quadrant pain. At that time he feels the abdomen was performed and nothing was found. He has not been followed for this lower abdominal pain since onset. He does not describe his discomfort. The pain is nonradiating. He rates the discomfort 6/10. The pain is constant. He has not identified any aggravating or alleviating factors related to this pain. He is on chronic Percocet for pain control but does not reporting taking any additional Percocet for his pain. Additionally he reports when the ambulance picked him up for transport approximately 2 hours ago he developed a severe headache. Since that time the pain has been constant. He describes an occipital headache that radiates upward into the midline and then eventually stops in the right parietal area. He is unable to describe this pain. He does report its constant. He rates this discomfort 10/10. He has not identified any aggravating or alleviating factors related to this pain. He did not take any additional medications for this pain prior to arrival at the hospital. Associated with his pain he reports he has slight dizziness and he feels like he is in a fog. Patient denies fevers, chills, sweats, skin eruptions, skin color changes, upper respiratory tract symptoms, wheezing, shortness of breath, orthopnea, claudication, cramping, recent surgery/inactivity/extended travel, nausea, vomiting, diarrhea, constipation, rectal bleeding, black/tarry stools, easy bruising, easy bleeding, urinary symptoms, hematuria back/flank pain, recent head trauma, recent chest trauma recent abdominal trauma. Review of Systems: As noted above in history of present illness. All body systems were reviewed and found to be negative as noted above. Past Medical History: As noted above, hypertension and (1) Catheter-associated urinary tract infection (2) Diabetes mellitus (3) Dyspnea (4) Gastroesophageal reflux disease (5) Gout (6) Parkinson's disease (7) Pulmonary embolism (8) Right upper extremity numbness (9) Syncope (10) Weakness Current Medications: Medications Dose Route/Sig Max Daily Dose Days Date Category Coreg (Carvedilol) 3.125 Mg Tab 3.125 Mg PO BID 12/22/16 Reported Lopressor (Metoprolol Tartrate) 25 Mg Tab 12.5 Mg PO BID 12/22/16 Reported Aspirin EC Low Dose (Aspirin) 81 Mg Ectab 1 Tab PO DAILY 11/14/16 Rx Isosorbide Mononitrate ER (Isosorbide Mononitrate) 30 Mg Tabcr 30 Mg PO QAM 11/14/16 Rx Zocor (Simvastatin) 20 Mg Tab 20 Mg PO QPM 11/12/16 Reported Lasix (Furosemide) 40 Mg Tab 40 Mg PO BID 10/21/16 Reported Lisinopril 40 Mg Tab 40 Mg PO DAILY 10/21/16 Reported Oxycodone/Acetaminophen 5MG/325MG (Oxycodone/Acetaminophen) 1 Tab Tab 1-2 Tabs PO Q4 30 08/15/16 Rx Vitamin C (Ascorbic Acid) 500 Mg Tab 500 Mg PO QAM 05/14/16 Reported Lantus (Insulin Glargine) 100 Unit/Ml Inj Units SC 05/14/16 Reported Sinemet Cr 50MG/200MG (Carbidopa/Levodopa) Tabcr 1 Tab PO BID 02/24/16 Reported Amantadine HCl 100 Mg Cap 100 Mg PO BID 02/24/16 Reported Lyrica (Pregabalin) 300 Mg Cap 300 Mg PO BID 02/24/16 Reported Allopurinol 100 Mg Tab 100 Mg PO DAILY 02/24/16 Reported Allergies to Medications: Penicillin, cephalosporins, Bactrim. Social History: Patient is currently retired; he feels safe in his home environment; he denies tobacco and alcohol use. Physical Examination: Vital Signs: Date Time Temp Pulse Resp B/P (MAP) Pulse Ox O2 Delivery O2 Flow Rate FiO2 12/22/16 17:31 79 20 131/73 91 Room Air 12/22/16 15:37 89 20 97/67 98 Room Air 12/22/16 12:30 36.7 95 20 168/92 99 Room Air 12/22/16 12:30 99 Room Air GENERAL: 61-year-old male in mild to moderate distress due to pain, nontoxic- appearing, afebrile and hemodynamically stable. NEUROLOGICAL: Awake, alert and oriented to person, place and time. Answering questions appropriately and following commands. Normal gait. Good hand eye coordination. SKIN: Warm, dry and pink. No soft tissue eruptions or trauma noted. HEENT: Atraumatic and normocephalic. PERRLA. Sclera white and conjunctiva pink. Oral cavity moist and pink. Pharynx is nonerythematous or edematous. Speech normal. No lymphadenopathy. Trachea midline. No jugular venous distention. BACK: No tenderness over the bony spine. No CVA tenderness. THORAX: Lungs sounds are clear to auscultation and equal bilaterally with symmetrical chest wall. No wheezing, rales or rhonchi. Mild tenderness over the lateral left chest wall in the axillary line without bony crepitus, subcutaneous air or deformities noted. HEART: Regular rate and rhythm. No gallops, rubs or murmurs are appreciated. No lifts, heaves or thrills. PMI is not displaced. ABDOMEN: Obese and tender in the bilateral lower abdomen. Positive bowel sounds in all quadrants. No guarding, rigidity or organomegaly. EXTREMITIES: Moves all extremities well on command and with purpose. All distal neurovascular statuses are intact and equal bilaterally. Bilateral dependent edema; patient reports this has not worsened. No palpable calf tenderness/cords. ED Course: Patient is assessed as noted above. Patient's medication list was reviewed. Laboratory Testing: Test 12/22/16 12:30 12/22/16 12:45 12/22/16 13:49 12/22/16 13:50 Range/Units Urine Color YELLOW Urine Appearance CLEAR CLEAR Urine pH 5.5 4.5-7.5 Urine Specific [place] 1.025 1.000-1.030 Urine Protein NEG NEG Urine Glucose (UA) NEG NEG Urine Ketones NEG NEG Urine Occult Blood NEG NEG Urine Nitrite NEG NEG Urine Bilirubin NEG NEG Urine Urobilinogen NEG NEG Urine Leukocyte Esterase NEG NEG White Blood Count 6.11 4.8-10.8 K/uL Red Blood Count 4.87 4.7-6.1 M/uL Hemoglobin 14.1 14.0-18.0 g/dL Hematocrit 42.9 42-52 % Mean Corpuscular Volume 88.1 80-100 fL Mean Corpuscular Hemoglobin 29.0 25-34 pg Mean Corpuscular Hemoglobin Concent 32.9 32-36 g/dl Platelet Count 185 130-400 K/uL Mean Platelet Volume 9.3 7.4-10.4 fL Neutrophils (%) (Auto) 60.5 % Lymphocytes (%) (Auto) 26.8 % Monocytes (%) (Auto) 7.2 % Eosinophils (%) (Auto) 4.9 % Basophils (%) (Auto) 0.3 % Neutrophils # (Auto) 3.69 1.4-6.5 K/uL Lymphocytes # (Auto) 1.64 1.2-3.4 K/uL Monocytes # (Auto) 0.44 0.11-0.59 K/uL Eosinophils # (Auto) 0.30 0-0.5 K/uL Basophils # (Auto) 0.02 0-0.2 K/uL RDW Standard Deviation 44.6 36.4-46.3 fL RDW Coefficient of Variation 13.8 11.5-14.5 % Immature Granulocyte % (Auto) 0.3 % Immature Granulocyte # (Auto) 0.02 0.00-0.02 K/uL Prothrombin Time 10.9 9.0-12.0 SECONDS Prothromb Time International Ratio 1.0 0.9-1.1 Activated Partial Thromboplast Time 31.7 21.0-31.0 SECONDS Partial Thromboplastin Ratio 1.2 Bedside Troponin I 0.030 0-0.045 ng/ml Sodium Level 139 136-145 mmol/L Potassium Level 4.1 3.5-5.1 mmol/L Chloride Level 104 98-107 mmol/L Carbon Dioxide Level 28 21-32 mmol/L Anion Gap 7.0 3-11 mmol/L Blood Urea Nitrogen 12 7-18 mg/dl Creatinine 1.10 0.60-1.40 mg/dl Est Creatinine Clear Calc Drug Dose 93.0 ml/min Estimated GFR () 82.9 Estimated GFR (Non- 71.6 BUN/Creatinine Ratio 10.9 10-20 Random Glucose 177 70-99 mg/dl Calcium Level 9.2 8.5-10.1 mg/dl Total Bilirubin 0.4 0.2-1 mg/dl Direct Bilirubin 0.1 0-0.2 mg/dl Aspartate Amino Transf (AST/SGOT) 15 15-37 U/L Alanine Aminotransferase (ALT/SGPT) 25 12-78 U/L Alkaline Phosphatase 108 45-117 U/L Total Protein 7.1 6.4-8.2 gm/dl Albumin 3.4 3.4-5.0 gm/dl Lipase 111 73-393 U/L Chest CTA: Was reviewed by myself and read by the radiologist showing no evidence of acute pulmonary embolism, left lower lobe bronchial wall thickening and mucous plugging and stable 6 mm right upper lobe pulmonary nodule. KUB: Was read by myself and the radiologist showing a nonobstructive bowel gas pattern. No free air. Aorta/iliac stent grafts in place, I see filter's appears unchanged, 3 calculi in the left kidney and no signs of fracture. EKG: Was read by myself and reviewed with Dr. Gomez; shows normal sinus rhythm with a first-degree AV block. 78 bpm. Normal axis and complexes. No acute ST changes indicating ischemia, injury or infarction. This was compared to her previous from 11/14/2016 in no acute changes were noted. Patient was hydrated with normal saline and he received a total of 12 mg of morphine IV and 4 mg of Zofran IV for his symptoms. Patient was reassessed multiple times during his stay in the emergency department. Patient's case was reviewed with Dr. Gomez; we agreed on diagnostic approach, treatment, disposition and plan. Patient and son are educated about today's findings and instructed on his treatment plan; he verbalizes understanding and agreement with this plan. Clinical Impression: Noncardiac chest pain. Hemoptysis. Bilateral lower abdominal pain. Acute headache. Decision-Making: Initially my differential diagnosis for his chest pain I considered acute coronary syndrome, pulmonary embolism, pneumonia, thoracic aneurysm, for his abdominal pain I considered diverticulitis, bowel obstruction , constipation and other causes and for his headache I considered acute stress reaction, intracranial bleed, mass effect, tension headaches and other causes. Disposition: Patient discharged home in stable condition accompanied by his son ; prior to departure he was reassessed and subjectively reported he was feeling much better and reported significant decreases in pain in all areas. Plan: Patient was encouraged to continue his current medications as prescribed including his Percocet. Patient was encouraged to follow-up with his liner reroll tender tomorrow and inform them of today's ED visit for follow-up care and treatment. Patient was encouraged to follow-up with his primary care provider tomorrow and request follow-up care and treatment for his abdominal pain and headache. Patient was encouraged return ED for worsening chest discomfort, worsening headache, worsening abdominal pain, fevers, shortness of breath, difficulty breathing, bloody vomitus, bloody stools or any new/concerning symptoms.
[2017-01-02] MEDS ORDERED: FURO40TA3 PO (11:45)
[2017-01-02] MEDS ORDERED: INSDGI SC (19:52)
[2017-01-23] MEDS ORDERED: SYM100 PO (12:38)
[2017-01-23] MEDS ORDERED: PREG300C PO (12:38)
[2017-01-23] MEDS ORDERED: ALL100 PO (12:38)
[2017-01-23] MEDS ORDERED: CARB50TA3 PO (12:44)
[2017-01-23] MEDS ORDERED: SIMV20TA2 PO (17:27)
[2017-03-12] MEDS ORDERED: PRT40 PO (10:50)
[2017-03-12] MEDS ORDERED: INSDGI SC (10:50)
[2017-03-12] MEDS ORDERED: FURO80TA63 PO (10:50)
[2017-03-12] MEDS ORDERED: ZNT150 PO (10:50)
[2017-03-12] MEDS ORDERED: VERA1TAB52 PO (10:50)
[2017-03-12] MEDS ORDERED: SPIR25TA PO (10:50)
[2017-03-12] MEDS ORDERED: LVNIS150 SC (10:50)
== END 2016-12-22 17:38 | disposition home or self-care (01) ==
LOC: EDBD 12:04 → C.EDC 12:05
DX: R07.9 Chest pain, unspecified (principal); R04.2 Hemoptysis; R10.10 Upper abdominal pain, unspecified; R10.30 Lower abdominal pain, unspecified; R51 Headache; I44.0 Atrioventricular block, first degree; R91.1 Solitary pulmonary nodule; N20.0 Calculus of kidney; E11.9 Type 2 diabetes mellitus without complications; K21.9 Gastro-esophageal reflux disease without esophagitis; G20 Parkinson's disease; M10.9 Gout, unspecified; Z87.440 Personal history of urinary (tract) infections; Z86.711 Personal history of pulmonary embolism; Z79.4 Long term (current) use of insulin; Z79.899 Other long term (current) drug therapy; Z88.0 Allergy status to penicillin; Z88.8 Allergy status to other drugs, medicaments and biological substances

== ENCOUNTER 2017-01-02 20:52 | Inpatient (IN) | payer OTHER ==
[~2017-01-02] VITALS: Ht 175.3 cm; Wt 125.0 kg
[~2017-01-02 20:52] MED LIST changes: -AMLO-114 PO; +CARV3.12 PO; -CARV3.122 PO; -CLC6 PO; -DTRSR/2 PO; -DUTA1CAP25 PO; -FERR1TAB23 PO; -FLUO40CA8 PO; +FURO40TA3 PO; +INSDGI SC; -LVNIS150 SQ; +METO25TA56 PO; -MIRA1TAB3 PO; -NITR-5 PO; -NVLGIPEN SC; -OMEP40CA41 PO; -SPIR25TA89 PO
[2017-01-02] MEDS ORDERED: SODIUM CHLORIDE 0.9% 500ML 500 ML IV STA (21:24)
[2017-01-02 22:38] LABS: BASO % 0.4 %; BASO ABS # 0.03 K/uL (0-0.2); COMPLETE YES; EOS % 4.2 %; HEMATOCRIT 42.9 % (42-52); IG% 0.1 %; LYMPH % 25.3 %; LYMPH ABS # 1.83 K/uL (1.2-3.4); MEAN CELL VOLUME 87.6 fL (80-100); MEAN CORPUSCULAR HEMOGLOBIN 27.6 pg (25-34); MEAN CORPUSCULAR HGB CONC 31.5 g/dl (32-36); MEAN PLATELET VOLUME 9.1 fL (7.4-10.4); MONO % 5.7 %; NEUT % 64.3 %; PLATELET COUNT 193 K/uL (130-400); WHITE BLOOD COUNT 7.22 K/uL (4.8-10.8)
[2017-01-02] MEDS ORDERED: MoRPHine SULFATE 4 MG/ML 1 ML CARP\\VIAL IV STA (22:46)
[2017-01-02 22:48] LABS: PARTIAL THROMBOPLASTIN RATIO 1.2; PROTHROMBIN TIME (PATIENT) 10.7 SECONDS (9.0-12.0)
[2017-01-02 22:57] LABS: ALT/SGPT 25 U/L (12-78); AST/SGOT 10 U/L (15-37); BLOOD UREA NITROGEN 25 mg/dl (7-18); BUN/CREATININE RATIO 18.9 (10-20); CALCIUM 9.4 mg/dl (8.5-10.1); CARBON DIOXIDE 31 mmol/L (21-32); CHLORIDE 104 mmol/L (98-107); GLUCOSE 209 mg/dl (70-99); POTASSIUM 4.1 mmol/L (3.5-5.1); SODIUM 140 mmol/L (136-145)
[2017-01-02 23:02] LABS: ALB/GLOB RATIO 0.9 (0.9-2); ALKALINE PHOSPHATASE 135 U/L (45-117)
--- NOTE | 2017-01-02 23:18 | EMERGENCY ROOM VISIT NOTE ---
History First contact with patient: 21:14 Chief Complaint: RIB PAIN Stated Complaint: PAIN RT SIDE OF RIBS, TROUBLE BREATHING History of Present Illness The patient is a 61 year old male who presents to the Emergency Room with complaints of right rib pain started yesterday with increased shortness of breath. He states he has been coughing for over a month, he discussed this with his PCP who thought it was because of his lisinopril, so this was recently stopped. He states he has been coughing up white phlegm, denies hemoptysis or other colored sputum. Patient states he has had rib fractures in the past and this feels similar, but he denies any falls or trauma to the right chest wall to account for rib fractures. Patient also has a history of PE in the past, he is currently being treated with Lovenox injections 150 mg twice a day, and states he also has an IVC filter in place. He denies fevers or chills, nausea or vomiting, abdominal pain, diarrhea, urinary symptoms, rash, recent weight changes. Review of Systems A complete 10 point review of systems was reviewed with the patient with pertinent positives and negatives as per history of present illness. All else were negative. Past Medical/Surgical History Medical Problems: (1) Catheter-associated urinary tract infection (2) Diabetes mellitus (3) Dyspnea (4) Gastroesophageal reflux disease (5) Gout (6) Parkinson's disease (7) Pulmonary embolism (8) Right upper extremity numbness (9) Syncope (10) Weakness Family History Cancer Diabetes mellitus FH: heart disease Hypertension Social History Smoking Status: Never Smoker Alcohol Use: none Drug Use: none Marital Status: single Housing Status: lives alone Occupation Status: retired Current/Historical Medications Scheduled Allopurinol (Allopurinol), 100 MG PO DAILY Amantadine HCl (Amantadine HCl), 100 MG PO BID Ascorbic Acid (Vitamin C), 500 MG PO QAM Carbidopa/Levodopa (Sinemet Cr 50MG/200MG), 1 TAB PO BID Furosemide (Lasix), 40 MG PO BID Insulin Glargine (Lantus), 30 UNITS SC BID Mirabegron (Myrbetriq Er), 50 MG PO DAILY Pregabalin (Lyrica), 300 MG PO BID Simvastatin (Zocor), 20 MG PO QPM Tolterodine Tartrate (Detrol LA), 2 MG PO BID Scheduled PRN Oxycodone/Acetaminophen 5MG/325MG (Percocet 5MG/325MG), 1-2 TABLETS PO Q4H PRN for Pain Physical Exam Vital Signs Date Time Temp Pulse Resp B/P (MAP) Pulse Ox O2 Delivery O2 Flow Rate FiO2 01/03/17 02:19 102 18 200/123 97 Room Air 01/03/17 02:00 187/106 01/03/17 01:43 98 18 191/113 97 Room Air 01/03/17 00:06 90 18 193/106 98 Room Air 01/02/17 23:15 98 20 198/106 98 Room Air 01/02/17 22:28 93 20 184/108 100 Room Air 01/02/17 22:23 99 Room Air 01/02/17 22:23 99 Room Air 01/02/17 21:55 103 01/02/17 20:55 36.5 127 18 181/88 96 Room Air Physical Exam CONSTITUTIONAL: No acute distress. Well appearing and well nourished. Alert and oriented X 4 with normal affect. HEENT: Normocephalic, atraumatic. Pupils equal, round and reactive to light, EOMI. TMs normal. Pharynx normal. NECK: Supple, full active range of motion without discomfort. RESPIRATORY: Clear to auscultation bilaterally with no wheezing, crackles, rhonchi or stridor. Diminished bases bilaterally. Equal expansion bilaterally. Not tachypneic, no retractions. CARDIOVASCULAR: Tachycardic. Regular rhythm with no murmurs, rubs or gallops. Normal peripheral perfusion. Bilateral lower extremity 2+ pitting edema which patient states is chronic. GASTROINTESTINAL: Soft, nontender, nondistended. Bowel sounds present in all quadrants. Obese abdomen. MUSCULOSKELETAL: Full range of motion of all joints without discomfort. INTEGUMENTARY: No rash or other significant dermatologic conditions noted. NEUROLOGIC: Cranial nerves II-XII grossly intact. No focal neurologic deficits noted. Medical Decision & Procedures Laboratory Results 01/02/17 22:30 Red Blood Count 4.90, Mean Corpuscular Volume 87.6, Mean Corpuscular Hemoglobin 27.6, Mean Corpuscular Hemoglobin Concent 31.5, Mean Platelet Volume 9.1, Neutrophils (%) (Auto) 64.3, Lymphocytes (%) (Auto) 25.3, Monocytes (%) (Auto) 5.7, Eosinophils (%) (Auto) 4.2, Basophils (%) (Auto) 0.4, Neutrophils # (Auto) 4.64, Lymphocytes # (Auto) 1.83, Monocytes # (Auto) 0.41, Eosinophils # (Auto) 0.30, Basophils # (Auto) 0.03 01/02/17 22:30 Test 01/02/17 22:30 01/02/17 22:34 01/03/17 00:45 White Blood Count 7.22 K/uL (4.8-10.8) Red Blood Count 4.90 M/uL (4.7-6.1) Hemoglobin 13.5 g/dL (14.0-18.0) Hematocrit 42.9 % (42-52) Mean Corpuscular Volume 87.6 fL (80-100) Mean Corpuscular Hemoglobin 27.6 pg (25-34) Mean Corpuscular Hemoglobin Concent 31.5 g/dl (32-36) Platelet Count 193 K/uL (130-400) Mean Platelet Volume 9.1 fL (7.4-10.4) Neutrophils (%) (Auto) 64.3 % Lymphocytes (%) (Auto) 25.3 % Monocytes (%) (Auto) 5.7 % Eosinophils (%) (Auto) 4.2 % Basophils (%) (Auto) 0.4 % Neutrophils # (Auto) 4.64 K/uL (1.4-6.5) Lymphocytes # (Auto) 1.83 K/uL (1.2-3.4) Monocytes # (Auto) 0.41 K/uL (0.11-0.59) Eosinophils # (Auto) 0.30 K/uL (0-0.5) Basophils # (Auto) 0.03 K/uL (0-0.2) RDW Standard Deviation 44.4 fL (36.4-46.3) RDW Coefficient of Variation 13.8 % (11.5-14.5) Immature Granulocyte % (Auto) 0.1 % Immature Granulocyte # (Auto) 0.01 K/uL (0.00-0.02) Prothrombin Time 10.7 SECONDS (9.0-12.0) Prothromb Time International Ratio 1.0 (0.9-1.1) Activated Partial Thromboplast Time 32.4 SECONDS (21.0-31.0) Partial Thromboplastin Ratio 1.2 Anion Gap 5.0 mmol/L (3-11) Est Creatinine Clear Calc Drug Dose 77.0 ml/min Estimated GFR () 67.8 Estimated GFR (Non- 58.5 BUN/Creatinine Ratio 18.9 (10-20) Calcium Level 9.4 mg/dl (8.5-10.1) Total Bilirubin 0.3 mg/dl (0.2-1) Aspartate Amino Transf (AST/SGOT) 10 U/L (15-37) Alanine Aminotransferase (ALT/SGPT) 25 U/L (12-78) Alkaline Phosphatase 135 U/L (45-117) Troponin I < 0.015 ng/ml (0-0.045) Pro-B-Type Natriuretic Peptide 130 pg/ml (0-900) Total Protein 7.5 gm/dl (6.4-8.2) Albumin 3.5 gm/dl (3.4-5.0) Globulin 4.0 gm/dl (2.5-4.0) Albumin/Globulin Ratio 0.9 (0.9-2) Bedside Glucose 198 mg/dl (70-99) Urine Color YELLOW Urine Appearance CLEAR (CLEAR) Urine pH 5.5 (4.5-7.5) Urine Specific [place] > 1.045 (1.000-1.030) Urine Protein NEG (NEG) Urine Glucose (UA) TRACE (NEG) Urine Ketones NEG (NEG) Urine Occult Blood NEG (NEG) Urine Nitrite NEG (NEG) Urine Bilirubin NEG (NEG) Urine Urobilinogen NEG (NEG) Urine Leukocyte Esterase NEG (NEG) Medications Administered Medications (Trade) Dose Ordered Sig/Apryl Route Start Time Stop Time Status Last Admin Dose Admin Sodium Chloride 500 ml @ 999 mls/hr Q31M STAT IV 01/02/17 21:24 01/02/17 21:54 DC 01/02/17 23:13 999 MLS/HR Morphine Sulfate (MoRPHine SULFATE INJ) 4 mg NOW STAT IV 01/02/17 22:46 01/02/17 22:47 DC 01/02/17 23:13 4 MG Morphine Sulfate (MoRPHine SULFATE INJ) 4 mg NOW STAT IV 01/03/17 00:15 01/03/17 00:16 DC 01/03/17 00:22 4 MG Ondansetron HCl (Zofran Inj) 4 mg NOW STAT IV 01/03/17 00:46 01/03/17 00:47 DC 01/03/17 00:51 4 MG Heparin Sodium/ Dextrose (Heparin 25,000 Unit/500ml D5W) 25,000 unit STK-MED ONCE .ROUTE 01/03/17 02:34 01/03/17 02:35 DC 01/03/17 02:40 25,000 UNIT Medical Decision CC: Patient presenting with complaint of right-sided chest pain and shortness of breath Interpretation of Labs: No leukocytosis, no anemia, hyperglycemia, no other significant electrolyte abnormalities, normal renal function, normal liver enzymes, negative troponin and BNP. No UTI. Differential Diagnosis: Includes, but not limited to bronchitis, pneumonia, rib fracture, CHF exacerbation, PE, among others. Medication Reconciliation: I attest that I have personally reviewed the patient' s current medication list. Vital signs review: I reviewed the patient's vital signs and interpret them as follows: T: Afebrile; BP: Hypertensive.; HR: Tachycardic; RR: Within normal limits; Pulse Ox: The normal limits and room-air. Summary: Patient was evaluated at bedside, history of physical exam performed. Patient is alert and no acute distress, no significant tachypnea or signs of respiratory distress on exam. Lungs are diminished in bases but otherwise unremarkable lung exam. There is tenderness to palpation of the right chest wall, no palpable fractures or crepitus, no ecchymosis or swelling noted. Orders were placed at bedside for labs, UA, EKG, CT of the chest to evaluate for PE, pneumonia, rib fractures. Patient discussed with Dr. Recio, who agrees with my assessment and plan. Labs reviewed as above, no significant abnormalities. CT of the chest reviewed, shows multiple filling defects within the segmental and subsegmental pulmonary arteries bilaterally, most likely representing pulmonary emboli\ Patient also has been requiring multiple doses of IV pain medication to manage his pain. Given the development of PE while on Lovenox treatment, will admit the patient. Spoke with hospitalist who agrees to this plan. Patient was updated on all results and plan for admission, he verbalized understanding and is agreeable to this plan. Stable at time of admission. Medication Reconcilliation Current Medication List: was personally reviewed by me Blood Pressure Screening Patient's blood pressure: Elevated blood pressure Impression Primary Impression: Pulmonary embolism Departure Information Dispostion Admitted as an inpatient Condition FAIR Referrals Reza Ocasio Jr,D.O. (PCP) Patient Instructions My [facility] Problem Qualifiers Primary Impression: Pulmonary embolism Pulmonary embolism type: other Chronicity: acute Acute cor pulmonale presence: without acute cor pulmonale Qualified Codes: I26.99 - Other pulmonary embolism without acute cor pulmonale
[2017-01-03] VITALS (9 sets, daily range): BP systolic 122–194; BP diastolic 79–93; PULSE 79–102; TEMP 36.5–36.8; O2SAT 93–98; Ht 175.3 cm; Wt 125.0 kg
[2017-01-03] MEDS ORDERED: MoRPHine SULFATE 4 MG/ML 1 ML CARP\\VIAL IV STA (00:15)
[2017-01-03] MEDS ORDERED: OPTIRAY 320 IV PRN (00:30)
[2017-01-03] MEDS ORDERED: ONDANSETRON INJ 2 MG/ML 2 ML VIAL IV STA (00:46)
--- NOTE | 2017-01-03 01:01 | EMERGENCY ROOM VISIT NOTE ---
ED Visit Note First contact with patient: 21:14 Patient was seen by our PA/FLAGGER. I was involved in the patient's care and did evaluate the patient myself. I was involved in the care throughout the ER stay. The patient does appear to have pulmonary emboli by CT. Admission/observation is warranted.
[2017-01-03 01:25] LABS: URINE APPEARANCE CLEAR (CLEAR); URINE BILIRUBIN NEG (NEG); URINE COLOR YELLOW; URINE NITRITE NEG (NEG); URINE PH 5.5 (4.5-7.5); URINE SPECIFIC GRAVITY > 1.045 (1.000-1.030); UROBILINOGEN NEG (NEG)
[2017-01-03 01:33] LABS: MANUAL MICROSCOPIC REQUIRED? NO; REVIEW REQ? NO
[2017-01-03] MEDS ORDERED: SODIUM CHLORIDE 0.9% 1000ML 1,000 ML IV SCH (01:59)
[2017-01-03] MEDS ORDERED: POLYETHYLENE (MIRALAX) 17 GM PACK PO PRN (02:00)
[2017-01-03] MEDS ORDERED: ACETAMINOPHEN 325 MG TAB PO PRN (02:00)
[2017-01-03] MEDS ORDERED: ONDANSETRON INJ 2 MG/ML 2 ML VIAL IV PRN (02:00)
[2017-01-03] MEDS ORDERED: NITROGLYCERIN 0.4 MG SL PER TAB CHARGE SL PRN (02:00)
--- NOTE | 2017-01-03 02:23 | History and Physical ---
History & Physical Date & Time of Service: Jan 03, 2017 at 02:22 Chief Complaint: Pain Rt Side Of Ribs, Trouble Breathing Primary Care Physician: Reza Ocasio JrD.O. History of Present Illness Source: patient 61-year-old male with a past medical history of hypertension, diabetes, gout, parkinsonism, GERD, pulmonary embolism status post IVC filter currently on Lovenox presented to the ER with complaints of right-sided chest pain which started yesterday. The patient also complained of worsening shortness of breath which was especially worse last night. Denies any palpitations, dizziness or lightheadedness Denies any trauma. The patient has a history of PE and a clotting disorder and is currently on Lovenox 150 mg twice daily and also has an IVC filter in place Past Medical/Surgical History Medical Problems: (1) Diabetes mellitus Status: Chronic (2) Gastroesophageal reflux disease Status: Chronic (3) Gout Status: Chronic (4) Parkinson's disease Status: Chronic (5) Pulmonary embolism Status: Resolved Family History Cancer Diabetes mellitus FH: heart disease Hypertension Social History Smoking Status: Never Smoker Drug Use: none Marital Status: single Housing status: lives alone Occupational Status: retired Immunizations History of Tetanus Vaccine?: probably over 10 yrs ago History of Pneumococcal: apr 2004 History of Hepatitis B Vaccine: 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 Multi-Drug Resistant Organisms History of MDRO: No Allergies Coded Allergies: Penicillins (Verified Allergy, Severe, 12/22/16) SEVERE RXN PER PT Cephalosporins (Verified Allergy, Unknown, 12/22/16) Sulfamethoxazole w/Trimethoprim (Verified Allergy, Unknown, ., 12/22/16) TAKES LASIX AT HOME Lisinopril (Verified Adverse Reaction, Intermediate, Cough, 01/02/17) Home Medications Scheduled Allopurinol (Allopurinol), 100 MG PO DAILY Amantadine HCl (Amantadine HCl), 100 MG PO BID Ascorbic Acid (Vitamin C), 500 MG PO QAM Carbidopa/Levodopa (Sinemet Cr 50MG/200MG), 1 TAB PO BID Furosemide (Lasix), 40 MG PO BID Insulin Glargine (Lantus), 30 UNITS SC BID Mirabegron (Myrbetriq Er), 50 MG PO DAILY Pregabalin (Lyrica), 300 MG PO BID Simvastatin (Zocor), 20 MG PO QPM Tolterodine Tartrate (Detrol LA), 2 MG PO BID Scheduled PRN Oxycodone/Acetaminophen 5MG/325MG (Percocet 5MG/325MG), 1-2 TABLETS PO Q4H PRN for Pain Review of Systems Constitutional: No fever, No chills ENT: No hearing loss Respiratory: + shortness of breath, + dyspnea on exertion Cardiovascular: + chest pain (right sided), No palpitations Abdomen: + nausea, No pain, No diarrhea Musculoskeletal: No joint pain, No muscle pain Genitourinary - Male: + urinary incontinence, No hematuria Neurologic: No memory loss, No paralysis, No weakness Psychiatric: No depression symptoms Allergic / Immunologic: No environmental allergies Physical Exam Vital Signs Date Time Temp Pulse Resp B/P (MAP) Pulse Ox O2 Delivery O2 Flow Rate FiO2 01/03/17 02:19 102 18 200/123 97 Room Air 01/03/17 02:00 187/106 01/03/17 01:43 98 18 191/113 97 Room Air 01/03/17 00:06 90 18 193/106 98 Room Air 01/02/17 23:15 98 20 198/106 98 Room Air 01/02/17 22:28 93 20 184/108 100 Room Air 01/02/17 22:23 99 Room Air 01/02/17 22:23 99 Room Air 01/02/17 21:55 103 01/02/17 20:55 36.5 127 18 181/88 96 Room Air General Appearance: WD/WN, no apparent distress ENT: hearing grossly normal Neck: supple Respiratory/Chest: + wheezing (scattered) Cardiovascular: + tachycardia Abdomen/GI: non tender, soft Extremities/Musculoskelatal: + pedal edema Neurologic/Psych: alert, normal mood/affect, oriented x 3 Diagnostics Laboratory Results Results Past 24 Hours Test 01/02/17 22:30 01/02/17 22:34 01/03/17 00:45 Range/Units White Blood Count 7.22 4.8-10.8 K/uL Red Blood Count 4.90 4.7-6.1 M/uL Hemoglobin 13.5 14.0-18.0 g/dL Hematocrit 42.9 42-52 % Mean Corpuscular Volume 87.6 80-100 fL Mean Corpuscular Hemoglobin 27.6 25-34 pg Mean Corpuscular Hemoglobin Concent 31.5 32-36 g/dl Platelet Count 193 130-400 K/uL Mean Platelet Volume 9.1 7.4-10.4 fL Neutrophils (%) (Auto) 64.3 % Lymphocytes (%) (Auto) 25.3 % Monocytes (%) (Auto) 5.7 % Eosinophils (%) (Auto) 4.2 % Basophils (%) (Auto) 0.4 % Neutrophils # (Auto) 4.64 1.4-6.5 K/uL Lymphocytes # (Auto) 1.83 1.2-3.4 K/uL Monocytes # (Auto) 0.41 0.11-0.59 K/uL Eosinophils # (Auto) 0.30 0-0.5 K/uL Basophils # (Auto) 0.03 0-0.2 K/uL RDW Standard Deviation 44.4 36.4-46.3 fL RDW Coefficient of Variation 13.8 11.5-14.5 % Immature Granulocyte % (Auto) 0.1 % Immature Granulocyte # (Auto) 0.01 0.00-0.02 K/uL Prothrombin Time 10.7 9.0-12.0 SECONDS Prothromb Time International Ratio 1.0 0.9-1.1 Activated Partial Thromboplast Time 32.4 21.0-31.0 SECONDS Partial Thromboplastin Ratio 1.2 Sodium Level 140 136-145 mmol/L Potassium Level 4.1 3.5-5.1 mmol/L Chloride Level 104 98-107 mmol/L Carbon Dioxide Level 31 21-32 mmol/L Anion Gap 5.0 3-11 mmol/L Blood Urea Nitrogen 25 7-18 mg/dl Creatinine 1.30 0.60-1.40 mg/dl Est Creatinine Clear Calc Drug Dose 77.0 ml/min Estimated GFR () 67.8 Estimated GFR (Non- 58.5 BUN/Creatinine Ratio 18.9 10-20 Random Glucose 209 70-99 mg/dl Calcium Level 9.4 8.5-10.1 mg/dl Total Bilirubin 0.3 0.2-1 mg/dl Aspartate Amino Transf (AST/SGOT) 10 15-37 U/L Alanine Aminotransferase (ALT/SGPT) 25 12-78 U/L Alkaline Phosphatase 135 45-117 U/L Troponin I < 0.015 0-0.045 ng/ml Pro-B-Type Natriuretic Peptide 130 0-900 pg/ml Total Protein 7.5 6.4-8.2 gm/dl Albumin 3.5 3.4-5.0 gm/dl Globulin 4.0 2.5-4.0 gm/dl Albumin/Globulin Ratio 0.9 0.9-2 Bedside Glucose 198 70-99 mg/dl Urine Color YELLOW Urine Appearance CLEAR CLEAR Urine pH 5.5 4.5-7.5 Urine Specific [place] > 1.045 1.000-1.030 Urine Protein NEG NEG Urine Glucose (UA) TRACE NEG Urine Ketones NEG NEG Urine Occult Blood NEG NEG Urine Nitrite NEG NEG Urine Bilirubin NEG NEG Urine Urobilinogen NEG NEG Urine Leukocyte Esterase NEG NEG Impression Assessment and Plan 61-year-old male with a past medical history of hypertension, diabetes, gout, parkinsonism, GERD, pulmonary embolism status post IVC filter currently on Lovenox presented to the ER with complaints of right-sided chest pain which started yesterday. Pulmonary embolism status post IVC filter - Failed treatment with Lovenox 150 mg twice a day - CTA chest revealed filling defects suspicious for PE - Started on heparin drip - Hematology consult Hypertension: Was recently taken off lisinopril due to chronic cough - Hydralazine when necessary - Consider starting ARB to manage blood pressure Diabetes: Hold home medication Insulin sliding scale Gout : continue allopurinol Urinary incontinence: Continue mirabegron Parkinson's Continue amantadine and Sinemet Chronic lower extremity swelling Continue Lasix Full code DVT prophylaxis: heparin Dispo: admitted to tele Resident Physician Supervision Note: I interviewed and examined the patient. Discussed with Dr. Paige and agree with findings and plan as documented in the note. Any exceptions or clarifications are listed here: None Documented By: Aramis Lynch presented w sx as above, notes c/w his prior PE sx, was tachycardic as well. on directed questioning he notes that while he generally is really good at remembering lovenox, he has forgotten (rare) doses from time to time "mostly when i'm tired and i've fallen asleep" vitals noted nad breathing unlabored no pallor or icterus recurrent PEs - ?truly failed lovenox vs related to missing doses -- however seems to be fairly rare that he does miss. for now heparin gtt for safety. would consider pradaxa (since not Xa inhibitor) vs other. will ask anticoag physician for opinion. stable overall uncontrolled HTN - seems to be fairly difficult to control - although curent elevation ?how much relates to acute stress of current situation? continue home meds, hydralazine prn, adjust home meds further if doesn't show improvement //needs ongoing prn hydralazine doses otherwise as above Level of Care Telemetry Resuscitation Status FULL RESUSCITATION VTE Prophylaxis VTE Risk Assessment Done? Y/N: Yes Risk Level: Moderate Given or contraindicated: Other Anticoagulation (heparin drip) Resident Tracking Resident Involvement: Resident Care Provided Care Provided: Adult Hospital Medicine
[2017-01-03] MEDS ORDERED: HEPARIN 25000 UNIT/500 ML D5W ONE (02:34)
[2017-01-03] MEDS ORDERED: HydrALAZINE HCL 20 MG/ML VIAL IV. PRN (03:00)
[2017-01-03] MEDS ORDERED: DEXTROSE 50% 50 ML SYR IV PRN (05:15)
[2017-01-03] MEDS ORDERED: GLUCAGON FOR INJ 1 MG VIAL SQ PRN (05:15)
[2017-01-03] MEDS ORDERED: GLUCOSE 10 TABS/TUBE PO PRN (05:15)
[2017-01-03] MEDS ORDERED: GLUCOSE 40% GEL 15 GM TUBE PO PRN (05:15)
[2017-01-03] MEDS ORDERED: HydrALAZINE HCL 20 MG/ML VIAL ONE (05:54)
[2017-01-03] MEDS ORDERED: INSULIN ASPART 100 UNITS/ML 3 ML PEN SC SCH (06:00)
--- NOTE | 2017-01-03 07:33 | DIAGNOSTIC IMAGING REPORT ---
CT ANGIOGRAPHY OF THE CHEST, PULMONARY EMBOLUS PROTOCOL CLINICAL HISTORY: Right-sided chest pain and shortness of breath. COMPARISON STUDY: Chest CT December 22, 2016. TECHNIQUE: Following IV administration of 92 mL of [id number]-320, helical axial images of the chest were obtained utilizing the pulmonary embolus protocol. Maximal intensity projections and sagittal and coronal reformats were viewed on an independent 3D workstation. IV contrast was administered without complication. A dose lowering technique was utilized adhering to the principles of ALARA. CT DOSE: 719.07 mGy.cm FINDINGS: This exam is significantly compromised by respiratory motion. No definite pulmonary emboli are identified. There are apparent multifocal filling defects within the pulmonary arteries which are probably artifactual. The heart is moderately enlarged. There is no pericardial effusion. There is no evidence of thoracic aortic dissection. Central airways are patent. Lungs are suboptimally assessed due to respiratory motion. There is no consolidation to suggest pneumonia. A 6 mm right upper lobe nodule is stable since earlier studies and benign given stability. No acute fractures are identified within visualized portions of the right-sided ribs. Please note that the inferior ribs were not included on this exam. There are several old left rib fractures. There are no acute left rib fractures. There is no pneumothorax. Upper abdomen is unremarkable. IMPRESSION: 1. Exam significantly compromised by respiratory motion artifact. Numerous apparent filling defects within the pulmonary arteries are indeterminate although favor artifact. Small pulmonary emboli would be difficult to exclude. A repeat CTA of the chest might be considered. 2. No acute intrathoracic findings. 3. Moderate cardiomegaly. Electronically signed by: Baltazar Jacobs M.D. 01/03/2017 7:31 AM Dictated Date/Time: 01/03/2017 7:19 AM
[2017-01-03] MEDS ORDERED: NURSING VERBAL MED ORDER ONE ×3 (08:30→16:00)
[2017-01-03 08:38] LABS: HEMATOCRIT 42.6 % (42-52); MEAN CELL VOLUME 86.9 fL (80-100); MEAN CORPUSCULAR HEMOGLOBIN 27.8 pg (25-34); MEAN CORPUSCULAR HGB CONC 31.9 g/dl (32-36); MEAN PLATELET VOLUME 8.9 fL (7.4-10.4); PLATELET COUNT 177 K/uL (130-400); WHITE BLOOD COUNT 6.48 K/uL (4.8-10.8)
[2017-01-03] MEDS: PREGABALIN 150 MG CAP PO SCH ×2 (08:38→20:58)
[2017-01-03] MEDS: ASCORBIC ACID 500 MG TAB PO SCH (08:38)
[2017-01-03] MEDS: MIRABEGRON ER 25 MG TAB PO SCH (08:38)
[2017-01-03] MEDS: AMANTADINE HCL 100 MG CAP PO SCH ×2 (08:39→20:58)
[2017-01-03] MEDS: CARBIDOPA/LEVODOPA 50/200MG EXT REL TAB PO SCH ×2 (08:39→20:58)
[2017-01-03] MEDS: ALLOPURINOL 100 MG TAB PO SCH (08:39)
[2017-01-03] MEDS: TOLTERODINE TARTRATE LA 2 MG CAPCR PO SCH ×2 (08:39→20:58)
[2017-01-03] MEDS: FUROSEMIDE 40 MG TAB PO SCH ×2 (08:40→16:03)
[2017-01-03 09:07] LABS: PARTIAL THROMBOPLASTIN RATIO 2.2
[2017-01-03] MEDS: INSULIN ASPART 100 UNITS/ML 3 ML PEN SC SCH ×3 (12:26→21:04)
--- NOTE | 2017-01-03 13:54 | Discharge Instructions ---
Discharge Instructions Date of Service Jan 03, 2017. Admission Reason for Admission: Pulmonary Embolism Discharge Discharge Diagnosis / Problem: Pulmonary embolus Discharge Goals Goal(s): Decrease discomfort Activity Recommendations Activity Limitations: resume your previous activity . Instructions / Follow-Up Instructions / Follow-Up Primary care physician in 1 week Current Hospital Diet Patient's current hospital diet: Diabetes Type 2 Diet Discharge Diet Recommended Diet: Diabetes Type 2 Diet Pending Studies Studies pending at discharge: no Laboratory Results Hemoglobin A1c Test 11/13/16 05:50 Range/Units Estimated Average Glucose 128 mg/dl Hemoglobin A1c 6.1 H 4.5-5.6 % Lipid Panel Test 11/13/16 05:50 Range/Units Triglycerides Level 137 0-150 mg/dl Cholesterol Level 146 0-200 mg/dl HDL Cholesterol 39 mg/dl Cholesterol/HDL Ratio 3.7 LDL Cholesterol, Calculated 80 mg/dl Medical Emergencies . Who to Call and When: Medical Emergencies: If at any time you feel your situation is an emergency, please call 911 immediately. . Non-Emergent Contact Non-Emergency issues call your: Primary Care Provider . . "Provider Documentation" section prepared by Danny Gonsalez. . VTE Core Measure Inpt VTE Proph given/why not?: Other Anticoagulation (heparin drip)
[2017-01-03] MEDS ORDERED: ENOX1INJ14 SC (14:01)
[2017-01-03] MEDS: HEPARIN 25000 UNIT/ D5W 500 ML (PHARMACY PREPARED) IV PRN ×4 (15:05→17:39)
[2017-01-03] MEDS ORDERED: OXYCODONE HCL IR 5 MG TAB (IMMEDIATE RELEASE) PO PRN (16:00)
--- NOTE | 2017-01-03 20:15 | Hospitalist Progress Note ---
Hospitalist Progress Note Date of Service Jan 03, 2017. Subjective Pt evaluation today including: conversation w/ patient Patient originally had no complaints and then complained of some chest discomfort Options for blood thinning were reviewed with the patient. He is not agreeable to starting Coumadin. He is not agreeable to a lower dose of Lovenox which is more appropriate to his weight. He has not a candidate for any of the newer agents based upon his weight. All Other Systems: Reviewed and Negative Objective Vital Signs Date Time Temp Pulse Resp B/P (MAP) Pulse Ox O2 Delivery O2 Flow Rate FiO2 01/03/17 19:51 36.6 101 20 167/83 (111) 95 Room Air 01/03/17 16:00 Room Air 01/03/17 15:51 36.5 85 18 122/79 (93) 94 Room Air 01/03/17 14:30 96 143/81 (101) 01/03/17 12:00 Room Air 01/03/17 11:00 36.6 89 18 163/91 (115) 93 Room Air 01/03/17 08:13 36.6 102 18 177/93 (121) 96 Room Air 01/03/17 08:00 Room Air 01/03/17 04:06 98 Room Air 01/03/17 04:05 36.8 86 20 194/88 01/03/17 03:01 206/112 01/03/17 03:00 103 22 94 01/03/17 02:45 98 15 95 01/03/17 02:19 102 18 200/123 97 Room Air 01/03/17 02:00 187/106 01/03/17 01:43 98 18 191/113 97 Room Air 01/03/17 00:06 90 18 193/106 98 Room Air 01/02/17 23:15 98 20 198/106 98 Room Air 01/02/17 22:28 93 20 184/108 100 Room Air 01/02/17 22:23 99 Room Air 01/02/17 22:23 99 Room Air 01/02/17 21:55 103 01/02/17 20:55 36.5 127 18 181/88 96 Room Air Physical Exam General Appearance: no apparent distress ENT: hearing grossly normal Neck: supple Respiratory/Chest: lungs clear Cardiovascular: regular rate, rhythm Abdomen: normal bowel sounds Extremities: normal range of motion Laboratory Results Last 24 Hours Test 01/02/17 22:30 7/21/17 22:34 01/03/17 00:45 01/03/17 07:49 White Blood Count 7.22 K/uL Red Blood Count 4.90 M/uL Hemoglobin 13.5 g/dL Hematocrit 42.9 % Mean Corpuscular Volume 87.6 fL Mean Corpuscular Hemoglobin 27.6 pg Mean Corpuscular Hemoglobin Concent 31.5 g/dl Platelet Count 193 K/uL Mean Platelet Volume 9.1 fL Neutrophils (%) (Auto) 64.3 % Lymphocytes (%) (Auto) 25.3 % Monocytes (%) (Auto) 5.7 % Eosinophils (%) (Auto) 4.2 % Basophils (%) (Auto) 0.4 % Neutrophils # (Auto) 4.64 K/uL Lymphocytes # (Auto) 1.83 K/uL Monocytes # (Auto) 0.41 K/uL Eosinophils # (Auto) 0.30 K/uL Basophils # (Auto) 0.03 K/uL RDW Standard Deviation 44.4 fL RDW Coefficient of Variation 13.8 % Immature Granulocyte % (Auto) 0.1 % Immature Granulocyte # (Auto) 0.01 K/uL Prothrombin Time 10.7 SECONDS Prothromb Time International Ratio 1.0 Activated Partial Thromboplast Time 32.4 SECONDS Partial Thromboplastin Ratio 1.2 Sodium Level 140 mmol/L Potassium Level 4.1 mmol/L Chloride Level 104 mmol/L Carbon Dioxide Level 31 mmol/L Anion Gap 5.0 mmol/L Blood Urea Nitrogen 25 mg/dl Creatinine 1.30 mg/dl Est Creatinine Clear Calc Drug Dose 77.0 ml/min Estimated GFR () 67.8 Estimated GFR (Non- 58.5 BUN/Creatinine Ratio 18.9 Random Glucose 209 mg/dl Calcium Level 9.4 mg/dl Total Bilirubin 0.3 mg/dl Aspartate Amino Transf (AST/SGOT) 10 U/L Alanine Aminotransferase (ALT/SGPT) 25 U/L Alkaline Phosphatase 135 U/L Troponin I < 0.015 ng/ml Pro-B-Type Natriuretic Peptide 130 pg/ml Total Protein 7.5 gm/dl Albumin 3.5 gm/dl Globulin 4.0 gm/dl Albumin/Globulin Ratio 0.9 Bedside Glucose 198 mg/dl 199 mg/dl Urine Color YELLOW Urine Appearance CLEAR Urine pH 5.5 Urine Specific [place] > 1.045 Urine Protein NEG Urine Glucose (UA) TRACE Urine Ketones NEG Urine Occult Blood NEG Urine Nitrite NEG Urine Bilirubin NEG Urine Urobilinogen NEG Urine Leukocyte Esterase NEG Test 01/03/17 08:23 01/03/17 11:56 01/03/17 15:11 01/03/17 16:30 White Blood Count 6.48 K/uL Red Blood Count 4.90 M/uL Hemoglobin 13.6 g/dL Hematocrit 42.6 % Mean Corpuscular Volume 86.9 fL Mean Corpuscular Hemoglobin 27.8 pg Mean Corpuscular Hemoglobin Concent 31.9 g/dl RDW Standard Deviation 44.1 fL RDW Coefficient of Variation 13.9 % Platelet Count 177 K/uL Mean Platelet Volume 8.9 fL Activated Partial Thromboplast Time 58.0 SECONDS Partial Thromboplastin Ratio 2.2 Bedside Glucose 226 mg/dl 214 mg/dl Troponin I < 0.015 ng/ml < 0.015 ng/ml Test 01/03/17 20:00 Assessment and Plan (1) Pulmonary embolus Assessment & Plan: Case discussed with Dr. Rivera who reviewed the possibilities with me first. The patient could be switched to Coumadin, he refuses he's been on Coumadin before. The patient could be followed for the possibility of switching to daily dosing of Lovenox, however he refuses this option also. Patient is not a Lovenox failure because he has not been taking all of his Lovenox injections. Patient agrees to return to Lovenox therapy heparin drip will be discontinued at 8 PM and Lovenox started at 9 twice a day. (2) IVC thrombosis (3) Chest pain Assessment & Plan: Atypical chest pain troponins will be sent and if negative patient can be discharged to home tomorrow (4) Gastroesophageal reflux disease (5) Diabetes mellitus
[2017-01-03] MEDS: ENOXAPARIN 150 MG/1ML SYR SQ SCH (20:59)
[2017-01-03] MEDS ORDERED: SIMVASTATIN 20 MG TAB PO SCH (21:00)
[2017-01-04 04:00] VITALS: BP 145/83; PULSE 76; TEMP 36.4; O2SAT 94
[2017-01-04 06:01] LABS: PARTIAL THROMBOPLASTIN RATIO 1.4
[2017-01-04 07:23] VITALS: BP 132/78; PULSE 72; TEMP 36.6; O2SAT 95
[2017-01-04] MEDS: CARBIDOPA/LEVODOPA 50/200MG EXT REL TAB PO SCH (08:34)
[2017-01-04] MEDS: TOLTERODINE TARTRATE LA 2 MG CAPCR PO SCH (08:34)
[2017-01-04] MEDS: MIRABEGRON ER 25 MG TAB PO SCH (08:34)
[2017-01-04] MEDS: ASCORBIC ACID 500 MG TAB PO SCH (08:34)
[2017-01-04] MEDS: PREGABALIN 150 MG CAP PO SCH (08:34)
[2017-01-04] MEDS: AMANTADINE HCL 100 MG CAP PO SCH (08:35)
[2017-01-04] MEDS: ALLOPURINOL 100 MG TAB PO SCH (08:35)
[2017-01-04] MEDS: FUROSEMIDE 40 MG TAB PO SCH (08:35)
[2017-01-04] MEDS: ENOXAPARIN 150 MG/1ML SYR SQ SCH (08:36)
[2017-01-04] MEDS: INSULIN ASPART 100 UNITS/ML 3 ML PEN SC SCH ×2 (08:40→13:16)
--- NOTE | 2017-01-04 10:40 | ECHOCARDIOGRAM REPORT ---
*NOTICE TO RECEIVING DEMOCRAT AGENCY This information is strictly Confidential and protected under [place] law. [place] law prohibits you from making any further disclosure of this information unless further disclosure is expressly permitted by the written consent of the person to whom it pertains or is authorized by law. A general authorization for the release of medical or other information is not sufficient for this purpose. Hospital accepts no responsibility if the information is made available to any other person, INCLUDING THE PATIENT. Interpretation Summary * Name: GARY SCHWAB Study Date: 01/03/2017 01:16 PM BP: 194/88 mmHg * Patient Location: [facility] HR: 86 * : 1955 (M/d/yyyy) Gender: Male Height: 69 in * Age: 61 yrs Ethnicity: [place] Weight: 275 lb * Ordering Physician: Isabella Paige * Performed By: Marissa Case * * Reason For Study: PULMONARY EMBOLISM- FOLLOW UP * BSA: 2.4 m2 * -- Conclusions -- * 1. Technically limited study. * 2. Grossly normal LV size, mild concentric LVH. * 3. Normal LV function. LVEF 60-65%. * 4. RV not well visualized. Grossly normal size. Unable to assess RV function. No significant TR noted to estimate PA pressures. * 5. Compared with prior study on 11/13/2016: Current study more technically limited. Procedure Details * The study was technically difficult. * The study was technically limited. * There were technical limitations due to patient'sbody habitus * Limited views were obtained. Left Ventricle * The left ventricle is grossly normal size. * There is mild concentric left ventricular hypertrophy. * Ejection Fraction = 60-65%. * Regional wall motion abnormalities cannot be excluded due to limited visualization. Mitral Valve * The mitral valve is grossly normal. * There is no mitral valve stenosis. Aortic Valve * The aortic valve opens well. * The aortic valve is trileaflet. * No hemodynamically significant valvular aortic stenosis. Pulmonic Valve * The pulmonary valve is inadequately visualized, but the Doppler data is adequate for interpretation. * Pulmonic stenosis is absent. Pericardium/Pleural * There is no pericardial effusion. MMode 2D Measurements and Calculations IVSd 1.9 cm IVSs 2.0 cm LVIDd 3.4 cm LVIDs 2.4 cm LVPWd 0.79 cm LVPWs 2.0 cm IVS/LVPW 2.4 FS 28.4 % EDV(Teich) 45.9 ml ESV(Teich) 20.2 ml EF(Teich) 56.1 % EDV(cubed) 37.7 ml ESV(cubed) 13.8 ml EF(cubed) 63.3 % % IVS thick 7.7 % % LVPW thick 154.5 % LV mass(C)d 150.5 grams LV mass(C)dI 63.6 grams/m\S\2 LV mass(C)s 210.8 grams LV mass(C)sI 89.1 grams/m\S\2 SV(Teich) 25.7 ml SI(Teich) 10.9 ml/m\S\2 SV(cubed) 23.9 ml SI(cubed) 10.1 ml/m\S\2 LA dimension 4.0 cm Doppler Measurements and Calculations PA V2 max 93.8 cm/sec PA max PG 3.5 mmHg
[2017-01-04 11:34] VITALS: BP 153/83; PULSE 75; TEMP 37; O2SAT 97
--- NOTE | 2017-01-04 12:34 | Discharge Summary ---
Discharge Summary Date of Service Jan 04, 2017. Discharge Summary Admission Date: Jan 03, 2017 at 02:19 Discharge Date: Jan 04, 2017 Discharge Disposition: Home Principal Diagnosis: Pulmonary embolus Immunizations: History of Tetanus Vaccine?: probably over 10 yrs ago History of Pneumococcal: apr 2004 History of Hepatitis B Vaccine: 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 Medication Reconciliation Continued Medications: Allopurinol (Allopurinol) 100 Mg Tab 100 MG PO DAILY Amantadine HCl (Amantadine HCl) 100 Mg Cap 100 MG PO BID Ascorbic Acid (Vitamin C) 500 Mg Tab 500 MG PO QAM Carbidopa/Levodopa (Sinemet Cr 50MG/200MG) Tabcr 1 TAB PO BID Enoxaparin Sodium (Enoxaparin Sodium) 150 Mg/Ml Inj 150 MG SC Q12 Furosemide (Lasix) 40 Mg Tab 40 MG PO BID, TAB Insulin Glargine (Lantus) 100 Unit/Ml Inj 30 UNITS SC BID Mirabegron (Myrbetriq Er) 50 Mg Tab 50 MG PO DAILY, TAB Oxycodone/Acetaminophen 5MG/325MG (Percocet 5MG/325MG) Tab 1-2 TABLETS PO Q4H PRN for Pain, TAB Pregabalin (Lyrica) 300 Mg Cap 300 MG PO BID Simvastatin (Zocor) 20 Mg Tab 20 MG PO QPM, TAB Tolterodine Tartrate (Detrol LA) 2 Mg Capcr 2 MG PO BID, CAP Hospital Course (1) Pulmonary embolus The patient has a history of DVT, PE. He was on lovenox as an outpatient. He did not take all of his shots and presented with the possibility of new pe. Case was discussed with Dr. Meza. He is a candidate for changing his dosing to 120 mg bid, and with careful follow up perhaps moving to single day dosing. He is also a candidate to switch to coumadin therapy. Patient refuses coumadin. Patient also refused to adjust his dose of lovenox to the 120 mg which is the recommended dosing based upon his current weight. He states he feels better on the 150, and is willing to deal with the risk of bleeding, which includes . He was changed to heparin and after discussing his options switched back to lovenox. He had atypical chest pain most likely from pe. Cardiac enzymes were negative. He is stable for discharge home today. follow up with pcp in 1 week. (2) IVC thrombosis (3) Chest pain (4) Gastroesophageal reflux disease (5) Diabetes mellitus Total Time Spent: Greater than 30 minutes This includes examination of the patient, discharge planning, medication reconciliation, and communication with other providers. Discharge Instructions Please refer to the electronic Patient Visit Report (Discharge Instructions) for additional information. Follow-Up 1 week with primary care physician
[2017-01-04 13:28] VITALS: BP 153/83; PULSE 75; TEMP 37; O2SAT 97
--- NOTE | 2017-01-06 13:21 | Medical Consult ---
Consultation Note Date of Service Jan 06, 2017. Consultation Note Asked to provide input into anticoagulant selection for this 61 year old man with a history of pulmonary embolism (s/p IVC filter placement) now with new shortness of breath and CTA showing multiple small filling defects that could be consistent with pulmonary emboli. The patient has been on lovenox 120 mg BID for some time and reports compliance issues. I have been contacted to provide input on choice of anticoagulant for future use. Options: 1. The patient could be switched to warfarin. This would require 5 days of parenteral anticoagulation and warfarin with 2 days of overlap at a therapeutic INR. It is unclear why warfarin has not been used in the past. 2. Lovenox. The patient is currently on 120 mg BID and has failed, most likely due to compliance issues. In my experience with obese patients, they do tend to require about 75-80% of the dose that they are given by weight. The patient may be able to get to daily dosing of lovenox (e.g., 150 mg daily) but this would have to be done in the context of careful measurements of peak (4 hour post injection) anti Xa (LMWH Xa) levels following discharge on a normal weight based dose (in his case 120 mg BID). 3. His weight makes him a poor candidate for a NOAC as obese individuals were not well represented in the clinical trials and it is rather well accepted that the novel agents should be used cautiously if at all in patients of extreme weights. Case discussed with Dr. Messer on January 03 @ 10:31 AM.
[2017-01-23] MEDS ORDERED: SYM100 PO (12:38)
[2017-01-23] MEDS ORDERED: PREG300C PO (12:38)
[2017-01-23] MEDS ORDERED: ALL100 PO (12:38)
[2017-01-23] MEDS ORDERED: CARB50TA3 PO (12:44)
[2017-01-23] MEDS ORDERED: SIMV20TA2 PO (17:27)
[2017-03-12] MEDS ORDERED: SPIR25TA PO (10:50)
[2017-03-12] MEDS ORDERED: LVNIS150 SC (10:50)
[2017-03-12] MEDS ORDERED: VERA1TAB52 PO (10:50)
[2017-03-12] MEDS ORDERED: PRT40 PO (10:50)
[2017-03-12] MEDS ORDERED: INSDGI SC (10:50)
[2017-03-12] MEDS ORDERED: FURO80TA63 PO (10:50)
[2017-03-12] MEDS ORDERED: ZNT150 PO (10:50)
== END 2017-01-04 14:38 | disposition home or self-care (01) | DRG 175 ==
LOC: C.EDB 20:53 → C.MED 01-03 02:19 → ENRESERV 01-03 03:00
PROVIDERS: ADMIT Family Medicine; ATTEND Family Medicine
DX: I26.99 Other pulmonary embolism without acute cor pulmonale (principal); I82.220 Acute embolism and thrombosis of inferior vena cava; Z68.41 Body mass index [BMI] 40.0-44.9, adult; R07.89 Other chest pain; G20 Parkinson's disease; I10 Essential (primary) hypertension; E11.9 Type 2 diabetes mellitus without complications; K21.9 Gastro-esophageal reflux disease without esophagitis; M10.9 Gout, unspecified; R60.0 Localized edema; R32 Unspecified urinary incontinence; E66.9 Obesity, unspecified; Z91.14 Patient's other noncompliance with medication regimen; Z95.828 Presence of other vascular implants and grafts; Z86.718 Personal history of other venous thrombosis and embolism; Z79.4 Long term (current) use of insulin; Z79.891 Long term (current) use of opiate analgesic; Z79.899 Other long term (current) drug therapy

== ENCOUNTER 2017-01-16 19:06 | Emergency (ER) | payer OTHER ==
[~2017-01-16] VITALS: Ht 177.8 cm; Wt 127.7 kg
[~2017-01-16 19:06] MED LIST changes: -ASPEC81 PO; -CARV3.12 PO; +ENOX1INJ14 SC; -IMDSR30 PO; -LSN40 PO; -METO25TA56 PO; -OXYC-643 PO
[2017-01-16 19:13] VITALS: Ht 177.8 cm; Wt 127.7 kg
[2017-01-16 19:34] VITALS: O2SAT 98
[2017-01-16 19:45] LABS: BASO % 0.4 %; BASO ABS # 0.03 K/uL (0-0.2); COMPLETE YES; EOS % 4.1 %; HEMATOCRIT 39.7 % (42-52); IG% 0.3 %; LYMPH % 28.7 %; LYMPH ABS # 2.08 K/uL (1.2-3.4); MEAN CELL VOLUME 88.4 fL (80-100); MEAN CORPUSCULAR HEMOGLOBIN 29.2 pg (25-34); MEAN PLATELET VOLUME 9.2 fL (7.4-10.4); MONO % 5.9 %; NEUT % 60.6 %; PLATELET COUNT 190 K/uL (130-400); RED BLOOD COUNT 4.49 M/uL (4.7-6.1); WHITE BLOOD COUNT 7.24 K/uL (4.8-10.8)
[2017-01-16] MEDS ORDERED: OPTIRAY 320 IV PRN (19:45)
[2017-01-16 19:59] LABS: PARTIAL THROMBOPLASTIN RATIO 1.2; PROTHROMBIN TIME (PATIENT) 10.2 SECONDS (9.0-12.0)
[2017-01-16 20:02] LABS: ALT/SGPT 30 U/L (12-78); BLOOD UREA NITROGEN 16 mg/dl (7-18); CALCIUM 8.9 mg/dl (8.5-10.1); CARBON DIOXIDE 26 mmol/L (21-32); CHLORIDE 107 mmol/L (98-107); GLUCOSE 230 mg/dl (70-99); POTASSIUM 3.9 mmol/L (3.5-5.1); SODIUM 139 mmol/L (136-145)
[2017-01-16 20:07] LABS: ALKALINE PHOSPHATASE 103 U/L (45-117); AST/SGOT 14 U/L (15-37); CKMB/CK RATIO 1.9 (0-3.0)
[2017-01-16] MEDS ORDERED: ONDANSETRON INJ 2 MG/ML 2 ML VIAL IV STA (21:08)
--- NOTE | 2017-01-16 21:08 | DIAGNOSTIC IMAGING REPORT ---
CHEST CTA for PULMONARY ARTERIES CT DOSE: 584.81 mGy.cm HISTORY: Atypical chest pain. Short of breath. TECHNIQUE: Multiaxial CT images of the chest were performed following the intravenous administration of contrast to evaluate the pulmonary arteries. Maximal intensity projection images were also obtained. A dose lowering technique was utilized adhering to the principles of ALARA. COMPARISON STUDY: Chest CTA 01/02/2017. FINDINGS: Normal caliber thoracic aorta with no evidence for dissection. Mild respiratory motion artifact. This results in suboptimal evaluation of some of the segmental pulmonary arteries. However, the remaining pulmonary arteries show no filling defects to suggest pulmonary embolus. The visualized liver and spleen are unremarkable. The heart is normal in size. No mediastinal or hilar lymphadenopathy. No pleural or pericardial effusions. The old, healed left-sided rib fractures. No pneumothorax. The central airways are patent. No focal lung consolidations to suggest pneumonia. Stable 6 mm nodule within the right upper lobe. IMPRESSION: No evidence for pulmonary embolus with limitations as described above. Stable 6 mm nodule within the right upper lobe. Electronically signed by: Silver Rhodes M.D. 01/16/2017 9:06 PM Dictated Date/Time: 01/16/2017 8:59 PM
[2017-01-16] MEDS ORDERED: HYDROmorphone INJ 0.5 MG/0.5 ML SYR IV STA (22:12)
[2017-01-16 23:19] VITALS: BP 139/86; PULSE 83; O2SAT 96
--- NOTE | 2017-01-17 00:02 | EMERGENCY ROOM VISIT NOTE ---
History Report prepared by Tyra: Kiki Peace Under the Supervision of: Dr. Grover Norwood M.D. First contact with patient: 19:17 Chief Complaint: SHORTNESS OF BREATH Stated Complaint: SOB, CHEST PAIN History of Present Illness The patient is a 62 year old male who presents to the Emergency Room with complaints of persistent difficulty breathing that started late this afternoon. He is accompanied by his son. He reports his symptoms are similar to when he experienced several small PE's two weeks ago. He remained in the hospital for one night, then was discharged home. The patient also complains of non- radiating pain across his chest, which he rates as a 9/10 in severity. He admits he had missed multiple doses of Lovenox before the PE's were found. He states he has not missed any doses since then and notes he has been on the Lovenox since 2003. He admits he has experienced blood clots while his PT/INR has been subtherapeutic. Earlier today, the patient had a routine follow up with his PCP, Dr. Ocasio and states they spoke about having him follow up with Hematology at [facility] in [place]. The patient thinks his body is not responding well to Lovenox after prolonged use. Pt denies LOC, headache, fevers, chills, diaphoresis, visual changes, neck pain, nausea, vomiting, abdominal pain, back pain, melena, hematochezia, urinary symptoms, numbness, weakness, lymphadenopathy, rash, or other complaints. Source of History: patient Onset: earlier this afternoon Position: chest Timing: other (persistent) Associated Symptoms: + chest pain Review of Systems See HPI for pertinent positives and negatives. A total of ten systems were reviewed and were otherwise negative. Past Medical & Surgical Medical Problems: (1) Catheter-associated urinary tract infection (2) Diabetes mellitus (3) Dyspnea (4) Gastroesophageal reflux disease (5) Gout (6) Parkinson's disease (7) Pulmonary embolism (8) Right upper extremity numbness (9) Syncope (10) Weakness Family History Cancer Diabetes mellitus FH: heart disease Hypertension Social History Smoking Status: Never Smoker Alcohol Use: none Drug Use: none Marital Status: Housing Status: lives alone Occupation Status: retired Current/Historical Medications Scheduled Allopurinol (Allopurinol), 100 MG PO DAILY Amantadine HCl (Amantadine HCl), 100 MG PO BID Ascorbic Acid (Vitamin C), 500 MG PO QAM Carbidopa/Levodopa (Sinemet Cr 50MG/200MG), 1 TAB PO BID Enoxaparin Sodium (Enoxaparin Sodium), 150 MG SC Q12 Furosemide (Lasix), 40 MG PO BID Insulin Glargine (Lantus), 30 UNITS SC BID Mirabegron (Myrbetriq Er), 50 MG PO DAILY Pregabalin (Lyrica), 300 MG PO BID Simvastatin (Zocor), 20 MG PO QPM Tolterodine Tartrate (Detrol LA), 2 MG PO BID Scheduled PRN Oxycodone/Acetaminophen 5MG/325MG (Percocet 5MG/325MG), 1-2 TABLETS PO Q4H PRN for Pain Allergies Coded Allergies: Penicillins (Verified Allergy, Severe, 01/16/17) SEVERE RXN PER PT Cephalosporins (Verified Allergy, Unknown, 01/16/17) Sulfamethoxazole w/Trimethoprim (Verified Allergy, Unknown, ., 01/16/17) TAKES LASIX AT HOME Lisinopril (Verified Adverse Reaction, Intermediate, Cough, 01/16/17) Physical Exam Vital Signs Date Time Temp Pulse Resp B/P (MAP) Pulse Ox O2 Delivery O2 Flow Rate FiO2 01/16/17 23:19 83 20 139/86 96 01/16/17 22:21 83 20 139/86 96 Room Air 01/16/17 21:05 86 24 143/72 97 Room Air 01/16/17 19:46 96 20 131/82 95 Room Air 01/16/17 19:39 96 Room Air 01/16/17 19:34 98 Room Air 01/16/17 19:13 36.8 116 22 149/83 96 Room Air Physical Exam GENERAL: Awake, alert, well-appearing, in no distress HENT: Normocephalic, atraumatic. Oropharynx unremarkable. EYES: Normal conjunctiva. Sclera non-icteric. NECK: Supple. No nuchal rigidity. FROM. No JVD. RESPIRATORY: Clear to auscultation. CARDIAC: Borderline tachycardic heart rate, normal rhythm. Extremities warm and well perfused. Pulses equal. ABDOMEN: Soft, non-distended. No tenderness to palpation. No rebound or guarding. No masses. RECTAL: Deferred. MUSCULOSKELETAL: Sternal chest tenderness. The back is symmetrical on inspection without obvious abnormality. There is no CVA tenderness to palpation. No joint edema. LOWER EXTREMITIES: Calves are equal size bilaterally and non-tender. No edema. No discoloration. NEURO: Normal sensorium. No sensory or motor deficits noted. SKIN: No rash or jaundice noted. Medical Decision & Procedures ER Provider Diagnostic Interpretation: Radiology results as stated below per my review and radiologist interpretation: CHEST CTA for PULMONARY ARTERIES CT DOSE: 584.81 mGy.cm HISTORY: Atypical chest pain. Short of breath. TECHNIQUE: Multiaxial CT images of the chest were performed following the intravenous administration of contrast to evaluate the pulmonary arteries. Maximal intensity projection images were also obtained. A dose lowering technique was utilized adhering to the principles of ALARA. COMPARISON STUDY: Chest CTA 01/02/2017. FINDINGS: Normal caliber thoracic aorta with no evidence for dissection. Mild respiratory motion artifact. This results in suboptimal evaluation of some of the segmental pulmonary arteries. However, the remaining pulmonary arteries show no filling defects to suggest pulmonary embolus. The visualized liver and spleen are unremarkable. The heart is normal in size. No mediastinal or hilar lymphadenopathy. No pleural or pericardial effusions. The old, healed left-sided rib fractures. No pneumothorax. The central airways are patent. No focal lung consolidations to suggest pneumonia. Stable 6 mm nodule within the right upper lobe. IMPRESSION: No evidence for pulmonary embolus with limitations as described above. Stable 6 mm nodule within the right upper lobe. Electronically signed by: Silver Rhodes M.D. 01/16/2017 9:06 PM Dictated Date/Time: 01/16/2017 8:59 PM Laboratory Results 01/16/17 19:30 Red Blood Count 4.49, Mean Corpuscular Volume 88.4, Mean Corpuscular Hemoglobin 29.2, Mean Corpuscular Hemoglobin Concent 33.0, Mean Platelet Volume 9.2, Neutrophils (%) (Auto) 60.6, Lymphocytes (%) (Auto) 28.7, Monocytes (%) (Auto) 5.9, Eosinophils (%) (Auto) 4.1, Basophils (%) (Auto) 0.4, Neutrophils # (Auto) 4.38, Lymphocytes # (Auto) 2.08, Monocytes # (Auto) 0.43, Eosinophils # (Auto) 0.30, Basophils # (Auto) 0.03 01/16/17 19:30 Test 01/16/17 19:30 01/16/17 21:35 White Blood Count 7.24 K/uL (4.8-10.8) Red Blood Count 4.49 M/uL (4.7-6.1) Hemoglobin 13.1 g/dL (14.0-18.0) Hematocrit 39.7 % (42-52) Mean Corpuscular Volume 88.4 fL (80-100) Mean Corpuscular Hemoglobin 29.2 pg (25-34) Mean Corpuscular Hemoglobin Concent 33.0 g/dl (32-36) Platelet Count 190 K/uL (130-400) Mean Platelet Volume 9.2 fL (7.4-10.4) Neutrophils (%) (Auto) 60.6 % Lymphocytes (%) (Auto) 28.7 % Monocytes (%) (Auto) 5.9 % Eosinophils (%) (Auto) 4.1 % Basophils (%) (Auto) 0.4 % Neutrophils # (Auto) 4.38 K/uL (1.4-6.5) Lymphocytes # (Auto) 2.08 K/uL (1.2-3.4) Monocytes # (Auto) 0.43 K/uL (0.11-0.59) Eosinophils # (Auto) 0.30 K/uL (0-0.5) Basophils # (Auto) 0.03 K/uL (0-0.2) RDW Standard Deviation 45.8 fL (36.4-46.3) RDW Coefficient of Variation 14.1 % (11.5-14.5) Immature Granulocyte % (Auto) 0.3 % Immature Granulocyte # (Auto) 0.02 K/uL (0.00-0.02) Erythrocyte Sedimentation Rate 48 mm/hr (0-14) Prothrombin Time 10.2 SECONDS (9.0-12.0) Prothromb Time International Ratio 1.0 (0.9-1.1) Activated Partial Thromboplast Time 30.3 SECONDS (21.0-31.0) Partial Thromboplastin Ratio 1.2 Anion Gap 6.0 mmol/L (3-11) Est Creatinine Clear Calc Drug Dose 84.6 ml/min Estimated GFR () 74.1 Estimated GFR (Non- 64.0 BUN/Creatinine Ratio 13.0 (10-20) Calcium Level 8.9 mg/dl (8.5-10.1) Total Bilirubin 0.1 mg/dl (0.2-1) Direct Bilirubin < 0.1 mg/dl (0-0.2) Aspartate Amino Transf (AST/SGOT) 14 U/L (15-37) Alanine Aminotransferase (ALT/SGPT) 30 U/L (12-78) Alkaline Phosphatase 103 U/L (45-117) Total Creatine Kinase 134 U/L (39-308) Creatine Kinase MB 2.5 ng/ml (0.5-3.6) Creatine Kinase MB Ratio 1.9 (0-3.0) Total Protein 7.5 gm/dl (6.4-8.2) Albumin 3.5 gm/dl (3.4-5.0) Lipase 185 U/L (73-393) Troponin I < 0.015 ng/ml (0-0.045) Laboratory results reviewed by me Medications Administered Medications (Trade) Dose Ordered Sig/Apryl Route Start Time Stop Time Status Last Admin Dose Admin Ondansetron HCl (Zofran Inj) 4 mg NOW STAT IV 01/16/17 21:08 01/16/17 21:09 DC 01/16/17 21:17 4 MG Hydromorphone HCl (Dilaudid Inj) 0.5 mg NOW STAT IV 01/16/17 22:12 01/16/17 22:13 DC 01/16/17 22:19 0.5 MG ECG Indication: SOB/dyspnea Rate (beats per minute): 105 Rhythm: sinus tachycardia Findings: 1st degree AV block, ST elevation (diffusley), no acute ischemic change Comparison ECG Date: 01/03/2017 Change: no significant change ED Course 1926: The patient was evaluated in room C7. A complete history and physical exam was performed. 2107: Ordered Zofran Inj 4 mg IV. 2118: I reevaluated the patient and he is doing okay. 2211: Ordered Dilaudid Inj 0.5 mg IV. 2212: The patient wanted something for pain so I ordered him some Dilaudid. 2235: I reevaluated the patient. He feels comfortable going home. He states he has had over 10 heart catheterizations and a stress test done last fall that show no signs of CAD. He states he doesn't need anything for the pain because he has Percocet at home. He will follow up with his PCP on Thursday. He will continue his Lovenox. Discussed results and discharge instructions: He verbalized understanding and agreement. The patient is ready for discharge. Medical Decision Triage Nursing notes reviewed. The patient's presentation and history were concerning for chest pain, SOB, and recent PE. Etiologies such as pulmonary embolism, cardiac ischemia, aortic dissection, pneumonia, pneumothorax, musculoskeletal, infections, gastrointestinal, as well as others were entertained. The patient was evaluated. I discussed imaging with the patient. I gave my usual and customary discussion regarding this issue. Blood work and imaging order. ECG was non-ischemic. The patient had some questionable ST segment abnormalities diffusely however when compared to his previous several ECGs there is no change. The patient notes a pleuritic-type of chest discomfort and not positional to suggest pericarditis. Blood work was obtained. His CBC, chemistry panel, cardiac markers 2, and LFTs were unremarkable. The patient has been diligently taking his Lovenox. He noted some nausea and was given Zofran. The patient then noted some discomfort in his chest and requested analgesia. He has been using Percocet at home. The patient was given a dose of Dilaudid and felt much better with this. The patient underwent CT imaging. There was some minimal respiratory motion and thankfully there were no significant pulmonary emboli seen. I did discuss the possibility with him that a very tiny pulmonary embolus could be missed. The patient has had significant clot burden in the past with regards to his IVC and and lower extremities. He cannot have Coumadin and is not a candidate based on previous evaluation for the new or anticoagulants. The patient states he has had multiple cardiac catheterizations, around 10 that have been clean. He had a stress test last fall that was negative. The patient notes no exertional component to this. He did have 2 troponins that were unchanged. His ECG was identical to his prior to ECGs. The patient is feeling much better at this point time. I suspect this may be pleurisy or even related to a tiny clot that is not obvious on CT imaging. As he is hemodynamically stable, feels comfortable, and is on his only option for anticoagulation I discussed conservative management at home and the patient felt very comfortable. He has pain medication. He will rest. He worsens in any way whatsoever he will come back to the Emergency Room. He will follow-up with his primary physician on Thursday. He states that they are working towards a new hematology consult. I gave my usual and customary discussion regarding this issue. By the evaluation outlined above other emergent etiologies such as those listed in the differential, as well as others, were deemed relatively unlikely. The patient was educated about the findings as listed above. All questions were answered and the patient was pleased with the treatment. Return instructions were outlined and the patient was discharged in stable condition. The patient was referred to his PCP for follow-up for a recheck of the current condition. Medication Reconcilliation Current Medication List: was personally reviewed by me Blood Pressure Screening Patient's blood pressure: Elevated blood pressure Blood pressure disposition: Referred to PCP Impression Primary Impression: Chest pain, pleuritic Scribe Attestation The scribe's documentation has been prepared under my direction and personally reviewed by me in its entirety. I confirm that the note above accurately reflects all work, treatment, procedures, and medical decision making performed by me. Departure Information Dispostion Home / Self-Care Referrals Reza Ocasio Jr,D.O. (PCP) Forms HOME CARE DOCUMENTATION FORM, IMPORTANT VISIT INFORMATION Patient Instructions [facility] Additional Instructions CHEST PAIN INSTRUCTIONS: DO NOT drive, drink alcohol, operate machinery, or perform dangerous activities today. You were given medications in the ER that can affect your ability to safely function or operate a vehicle. For mild pain: Acetaminophen(Tylenol) may be used for fever or pain. Use 1000mg every six hours as needed. Avoid using more than 3000mg in a 24 hour period. For more significant pain use your Percocet. Do not mix this with Tylenol. Rest and drink plenty of fluids as tolerated. Continue current medications. Avoid strenuous activities and anything that worsens your pain. Resume normal activities once your symptoms resolve. Return to the ER immediately for worsening or persistent chest pain, abdominal pain, vomiting, fevers, chest pains, difficulty breathing, worsening of your condition, or as needed. Follow up with your primary physician Thursday for a recheck of your current condition.
[2017-01-23] MEDS ORDERED: PREG300C PO (12:38)
[2017-01-23] MEDS ORDERED: ALL100 PO (12:38)
[2017-01-23] MEDS ORDERED: SYM100 PO (12:38)
[2017-01-23] MEDS ORDERED: CARB50TA3 PO (12:44)
[2017-01-23] MEDS ORDERED: SIMV20TA2 PO (17:27)
[2017-03-12] MEDS ORDERED: LVNIS150 SC (10:50)
[2017-03-12] MEDS ORDERED: ZNT150 PO (10:50)
[2017-03-12] MEDS ORDERED: INSDGI SC (10:50)
[2017-03-12] MEDS ORDERED: FURO80TA63 PO (10:50)
[2017-03-12] MEDS ORDERED: PRT40 PO (10:50)
[2017-03-12] MEDS ORDERED: VERA1TAB52 PO (10:50)
[2017-03-12] MEDS ORDERED: SPIR25TA PO (10:50)
== END 2017-01-16 23:21 | disposition home or self-care (01) ==
LOC: C.EDB 19:07 → C.EDC 23:21
DX: R07.81 Pleurodynia (principal); R06.02 Shortness of breath; E11.9 Type 2 diabetes mellitus without complications; Z79.4 Long term (current) use of insulin; G20 Parkinson's disease; Z86.711 Personal history of pulmonary embolism; Z79.01 Long term (current) use of anticoagulants; Z79.899 Other long term (current) drug therapy; R91.1 Solitary pulmonary nodule

== ENCOUNTER 2017-01-23 19:58 | Emergency (ER) | payer OTHER ==
[~2017-01-23] VITALS: Ht 175.3 cm; Wt 131.6 kg
[~2017-01-23 19:58] MED LIST changes: +ALL100 PO; +CARB50TA3 PO; +PREG300C PO; +SIMV20TA2 PO; +SYM100 PO
[2017-01-23] MEDS ORDERED: ASCO500T3 PO (20:00)
[2017-01-23 20:02] VITALS: TEMP 36.5; Ht 175.3 cm; Wt 131.6 kg
[2017-01-23] MEDS ORDERED: SODIUM CHLORIDE 0.9% 1000ML 500 ML IV STA (20:46)
--- NOTE | 2017-01-23 20:56 | EMERGENCY ROOM VISIT NOTE ---
History Report prepared by Tyra: Pam Huang Under the Supervision of: Dr. Rodrigo Recio M.D. First contact with patient: 20:43 Chief Complaint: CHEST PAIN Stated Complaint: CHEST PAIN, SOB, TROUBLE STANDING, ARM PAIN Nursing Triage Summary: Patient states, "I've been having chest pain off and on for atleast 2 weeks. I did come in once for it. The severity is stronger." History of Present Illness The patient is a 62 year old male who presents to the Emergency Room with complaints of persistent chest pain that began prior to arrival. He currently rates his discomfort as a 7/10 in severity. The patient states that he was evaluated in the emergency department one week ago for similar symptoms, noting that his work up was normal. He states that he was told to come back if his symptoms worsened or returned. The patient states that he has noticed chest pain with breathing. He states that this evening he went to get up from his recliner and states that his right leg gave out at the knee. The patient reports pain in the right leg, but denies any fall or injury. He states that he was evaluated in the emergency department in December that revealed a pulmonary embolism. The patient states that he is currently on Lovenox injections. He states that his CT scan from 1 week ago revealed that his PE dissolved. The patient denies any fever, vomiting, urinary symptoms, or increased leg swelling. He states that he lives at home alone. The patient states that he has formed blood clots even though he is on anticoagulants. He states that he is treated for hypertension, and reports medication compliance. Source of History: patient Onset: prior to arrival Position: chest Symptom Intensity: 7/10 Timing: other (persistent) Modifying Factors (Worsening): breathing Associated Symptoms: No fevers, No vomiting, No urinary symptoms Note: Associated symptoms: right leg gave out at the knee. Review of Systems See HPI for pertinent positives & negatives. A total of 10 systems reviewed and were otherwise negative. Past Medical & Surgical Medical Problems: (1) Catheter-associated urinary tract infection (2) Diabetes mellitus (3) Dyspnea (4) Gastroesophageal reflux disease (5) Gout (6) Parkinson's disease (7) Pulmonary embolism (8) Right upper extremity numbness (9) Syncope (10) Weakness Family History Cancer Diabetes mellitus FH: heart disease Hypertension Social History Smoking Status: Never Smoker Alcohol Use: none Drug Use: none Marital Status: Housing Status: lives alone Occupation Status: retired Current/Historical Medications Scheduled Allopurinol (Allopurinol), 100 MG PO DAILY Amantadine HCl (Amantadine HCl), 100 MG PO BID Ascorbic Acid (Vitamin C), 500 MG PO QAM Carbidopa/Levodopa (Sinemet Cr 50MG/200MG), 1 TAB PO BID Carvedilol (Carvedilol), 3.125 MG PO BID Dutasteride (Avodart), 0.5 MG PO DAILY Enoxaparin Sodium (Enoxaparin Sodium), 150 MG SC Q12 Ferrous Sulfate (Iron), 1 TAB PO DAILY Fluoxetine (Prozac), 40 MG PO DAILY Furosemide (Lasix), 80 MG PO DAILY Insulin Glargine (Lantus), 30 UNITS SC BID Isosorbide Mononitrate (Isosorbide Mononitrate ER), 30 MG PO DAILY Losartan Potassium (Cozaar), 50 MG PO DAILY Mirabegron (Myrbetriq Er), 50 MG PO DAILY Nitrofurantoin Monohyd Macrocr (Macrobid), 100 MG PO BID Omeprazole (Prilosec), 20 MG PO DAILY Pregabalin (Lyrica), 300 MG PO BID Simvastatin (Zocor), 20 MG PO QPM Spironolactone (Aldactone), 25 MG PO DAILY Tamsulosin Hcl (Flomax), 0.4 MG PO DAILY Tolterodine Tartrate (Detrol LA), 2 MG PO BID Scheduled PRN Colchicine (Colchicine), 0.6 MG PO DAILY PRN for GOUT Oxycodone/Acetaminophen 5MG/325MG (Percocet 5MG/325MG), 1-2 TABLETS PO Q4H PRN for Pain Zolpidem Tartrate (Ambien), 10 MG PO HS PRN for Sleep Allergies Coded Allergies: Penicillins (Verified Allergy, Severe, 01/16/17) SEVERE RXN PER PT Cephalosporins (Verified Allergy, Unknown, 01/16/17) Sulfamethoxazole w/Trimethoprim (Verified Allergy, Unknown, ., 01/16/17) TAKES LASIX AT HOME Lisinopril (Verified Adverse Reaction, Intermediate, Cough, 01/16/17) Physical Exam Vital Signs Date Time Temp Pulse Resp B/P (MAP) Pulse Ox O2 Delivery O2 Flow Rate FiO2 01/24/17 00:40 88 18 165/85 97 01/23/17 23:37 91 16 188/88 98 Room Air 01/23/17 22:20 96 22 180/105 98 Room Air 01/23/17 21:22 104 01/23/17 20:02 36.5 105 22 234/108 98 Room Air Physical Exam GENERAL: Patient is in no acute distress. HEENT: No acute trauma, normocephalic atraumatic, mucous membranes moist, no nasal congestion, no scleral icterus. NECK: No stridor, no adenopathy, no meningismus, trachea is midline. LUNGS: Clear to auscultation bilaterally, no wheeze, no rhonchi, breath sounds equal. HEART: Tachycardic with a regular rhythm, no murmurs. ABDOMEN: Soft, diffusely mildly tender, bowel sounds positive, no hernias, no peritonitis. EXTREMITIES: Moderate bilateral pedal edema. No cyanosis, full range of motion of all the joints without pain or difficulty, no signs for acute trauma. NEUROLOGIC: Oriented x 3, no acute motor or sensory deficits, no focal weakness. SKIN: No rash, no jaundice, no diaphoresis. Medical Decision & Procedures ER Provider Diagnostic Interpretation: Radiology results as stated below per my review and radiologist interpretation: BILATERAL LOWER EXTREMITY VENOUS DOPPLER CLINICAL HISTORY: Swelling. History of clot. Shortness of breath. COMPARISON STUDY: Bilateral lower extremity venous Doppler February 24, 2016. TECHNIQUE: Sonography of the deep venous system of the bilateral lower extremities was performed. Compression and augmentation were evaluated. FINDINGS: There is nonocclusive thrombus within the right common femoral, superficial femoral, popliteal and posterior tibial veins. In addition, there is nonocclusive thrombus within the left superficial femoral vein. Evaluation is difficult due to suboptimal penetration. This thrombus is age indeterminate although thrombus was shown within these vessels on exam of February 24, 2016. IMPRESSION: Nonocclusive deep venous thrombus within the right common femoral vein, bilateral superficial femoral veins, right popliteal vein and right posterior tibial vein. Evaluation is difficult due to suboptimal penetration. Thrombus was shown within these vessels on ultrasound of February 24, 2016. However, comparison by sonography is difficult. This thrombus is age indeterminate although chronic thrombus is favored. Electronically signed by: Baltazar Jacobs M.D. 01/23/2017 10:30 PM Dictated Date/Time: 01/23/2017 10:25 PM CHEST ONE VIEW PORTABLE CLINICAL HISTORY: Chest pain. COMPARISON STUDY: Chest CT January 16, 2017. FINDINGS: Mild elevation of the right hemidiaphragm is unchanged. This exam is mildly compromised by motion artifact. There is no consolidation to suggest pneumonia and there is no evidence of pulmonary edema. Cardiomegaly is unchanged. IMPRESSION: No acute cardiopulmonary findings. Electronically signed by: Baltazar Jacobs M.D. 01/23/2017 9:15 PM Dictated Date/Time: 01/23/2017 9:[address] Chest with contrast: Comparison: CT chest 01/16/17 and 05/14/16 No evidence of pulmonary embolism No consolidation. No pleural effusion or pneumothorax. Stable 6 mm right upper lobe pulmonary nodule (3/60), unchanged since 05/14/16. Heart size is normal. No pericardial effusion. Radiologist: Kelby Santiago MD Study ready at [id number] and intial results transmitted at 0266 Laboratory Results 01/23/17 21:14 01/23/17 21:14 Test 01/23/17 21:14 Red Blood Count 4.59 M/uL (4.7-6.1) Mean Corpuscular Volume 88.9 fL (80-100) Mean Corpuscular Hemoglobin 29.6 pg (25-34) Mean Corpuscular Hemoglobin Concent 33.3 g/dl (32-36) RDW Standard Deviation 44.6 fL (36.4-46.3) RDW Coefficient of Variation 13.6 % (11.5-14.5) Mean Platelet Volume 9.4 fL (7.4-10.4) Prothrombin Time 10.7 SECONDS (9.0-12.0) Prothromb Time International Ratio 1.0 (0.9-1.1) Activated Partial Thromboplast Time 34.5 SECONDS (21.0-31.0) Partial Thromboplastin Ratio 1.3 Anion Gap 6.0 mmol/L (3-11) Est Creatinine Clear Calc Drug Dose 84.7 ml/min Estimated GFR () 74.1 Estimated GFR (Non- 64.0 BUN/Creatinine Ratio 13.9 (10-20) Calcium Level 9.3 mg/dl (8.5-10.1) Total Bilirubin 0.3 mg/dl (0.2-1) Aspartate Amino Transf (AST/SGOT) 11 U/L (15-37) Alanine Aminotransferase (ALT/SGPT) 26 U/L (12-78) Alkaline Phosphatase 109 U/L (45-117) Troponin I < 0.015 ng/ml (0-0.045) Total Protein 7.5 gm/dl (6.4-8.2) Albumin 3.5 gm/dl (3.4-5.0) Globulin 4.0 gm/dl (2.5-4.0) Albumin/Globulin Ratio 0.9 (0.9-2) Laboratory results reviewed by me. Medications Administered Medications (Trade) Dose Ordered Sig/Apryl Route Start Time Stop Time Status Last Admin Dose Admin Sodium Chloride 500 ml @ 999 mls/hr Q31M STAT IV 01/23/17 20:46 01/23/17 21:16 DC 01/23/17 20:46 999 MLS/HR Morphine Sulfate (MoRPHine SULFATE INJ) 4 mg NOW STAT IV 01/23/17 23:31 01/23/17 23:32 DC 01/23/17 23:37 4 MG Carvedilol (Coreg Tab) 3.125 mg NOW ONCE PO 01/23/17 23:45 01/23/17 23:46 DC 01/23/17 23:55 3.125 MG ECG Indication: chest pain Rate (beats per minute): 107 Rhythm: sinus tachycardia Findings: 1st degree AV block, no acute ischemic change, no ectopy ED Course 2042: The patient was evaluated in room C1B. A complete history and physical exam was performed. 2045: Ordered Sodium Chloride 500 ml @ 999 mls/hr IV. 2331: Ordered Morphine Sulfate 4 mg IV. 2345: Carvedilol 3.125 mg PO. 2352: I reevaluated the patient and he is resting comfortably. I discussed the exam findings with him and I discussed the treatment plan. Case Management is going to speak with the patient regarding his living situations. 0015: I reevaluated the patient and he is doing well. He is in agreement with the set treatment plan. He is ready to go home. Medical Decision The patient is a 62 year old male who presents to the ED with complaints of chest pain. Differential diagnoses considered include PE, musculoskeletal pain , NV, pneumonia, aortic dissection, DVT, anemia, electrolyte imbalance. There is no leukocytosis or concerning anemia. No significant electrolyte abnormality, kidney failure or hepatitis. There is no coagulopathy. Chest film does not show pneumonia or CHF. There was no mediastinal widening. Bilateral lower extremity ultrasound does not show evidence for acute DVT, a chronic DVT was thought present. EKG shows a sinus tachycardia with a first- degree block, no acute ischemia. Cardiac enzyme testing times one is not consistent with acute cardiac injury. Chest CT does not show any acute PE, no evidence for aortic dissection or pneumonia. The patient was given IV saline, IV morphine. He received his normal dose of oral Coreg. The patient is doing better, I do think he can be discharged. He is able to walk and get around at his baseline. The patient's chest pain is likely musculoskeletal. His workup here is reassuring, he was seen by case management and they discussed his living situation. Patient was felt stable for discharge and was encouraged to follow with his doctor. He can return if worsening. Medication Reconcilliation Current Medication List: was personally reviewed by me Blood Pressure Screening Patient's blood pressure: Elevated blood pressure Blood pressure disposition: Referred to PCP Impression Primary Impression: Precordial chest pain Additional Impression: History of pulmonary embolism Scribe Attestation The scribe's documentation has been prepared under my direction and personally reviewed by me in its entirety. I confirm that the note above accurately reflects all work, treatment, procedures, and medical decision making performed by me. Departure Information Dispostion Home / Self-Care Referrals Reza Ocasio Jr,D.O. (PCP) Forms HOME CARE DOCUMENTATION FORM, IMPORTANT VISIT INFORMATION Patient Instructions My [facility] Additional Instructions all care as before testing here was all ok follow with your doctors next week return if worsening Problem Qualifiers
--- NOTE | 2017-01-23 21:16 | DIAGNOSTIC IMAGING REPORT ---
CHEST ONE VIEW PORTABLE CLINICAL HISTORY: Chest pain. COMPARISON STUDY: Chest CT January 16, 2017. FINDINGS: Mild elevation of the right hemidiaphragm is unchanged. This exam is mildly compromised by motion artifact. There is no consolidation to suggest pneumonia and there is no evidence of pulmonary edema. Cardiomegaly is unchanged. IMPRESSION: No acute cardiopulmonary findings. Electronically signed by: Baltazar Jacobs M.D. 01/23/2017 9:15 PM Dictated Date/Time: 01/23/2017 9:14 PM
[2017-01-23] MEDS ORDERED: ISOS-11 PO (21:36)
[2017-01-23 21:40] LABS: HEMATOCRIT 40.8 % (42-52); MEAN CELL VOLUME 88.9 fL (80-100); MEAN CORPUSCULAR HEMOGLOBIN 29.6 pg (25-34); MEAN CORPUSCULAR HGB CONC 33.3 g/dl (32-36); MEAN PLATELET VOLUME 9.4 fL (7.4-10.4); PLATELET COUNT 182 K/uL (130-400); RED BLOOD COUNT 4.59 M/uL (4.7-6.1); WHITE BLOOD COUNT 6.21 K/uL (4.8-10.8)
[2017-01-23 21:42] LABS: PARTIAL THROMBOPLASTIN RATIO 1.3; PROTHROMBIN TIME (PATIENT) 10.7 SECONDS (9.0-12.0)
[2017-01-23 21:55] LABS: ALT/SGPT 26 U/L (12-78); BLOOD UREA NITROGEN 17 mg/dl (7-18); BUN/CREATININE RATIO 13.9 (10-20); CALCIUM 9.3 mg/dl (8.5-10.1); CARBON DIOXIDE 28 mmol/L (21-32); CHLORIDE 104 mmol/L (98-107); GLUCOSE 243 mg/dl (70-99); POTASSIUM 4.4 mmol/L (3.5-5.1); SODIUM 138 mmol/L (136-145)
[2017-01-23 22:00] LABS: ALB/GLOB RATIO 0.9 (0.9-2); ALKALINE PHOSPHATASE 109 U/L (45-117); AST/SGOT 11 U/L (15-37)
--- NOTE | 2017-01-23 22:31 | DIAGNOSTIC IMAGING REPORT ---
BILATERAL LOWER EXTREMITY VENOUS DOPPLER CLINICAL HISTORY: Swelling. History of clot. Shortness of breath. COMPARISON STUDY: Bilateral lower extremity venous Doppler February 24, 2016. TECHNIQUE: Sonography of the deep venous system of the bilateral lower extremities was performed. Compression and augmentation were evaluated. FINDINGS: There is nonocclusive thrombus within the right common femoral, superficial femoral, popliteal and posterior tibial veins. In addition, there is nonocclusive thrombus within the left superficial femoral vein. Evaluation is difficult due to suboptimal penetration. This thrombus is age indeterminate although thrombus was shown within these vessels on exam of February 24, 2016. IMPRESSION: Nonocclusive deep venous thrombus within the right common femoral vein, bilateral superficial femoral veins, right popliteal vein and right posterior tibial vein. Evaluation is difficult due to suboptimal penetration. Thrombus was shown within these vessels on ultrasound of February 24, 2016. However, comparison by sonography is difficult. This thrombus is age indeterminate although chronic thrombus is favored. Electronically signed by: Baltazar Jacobs M.D. 01/23/2017 10:30 PM Dictated Date/Time: 01/23/2017 10:25 PM
[2017-01-23] MEDS ORDERED: FURO80TA63 PO (22:46)
[2017-01-23] MEDS ORDERED: DTRSR/2 PO (22:48)
[2017-01-23] MEDS ORDERED: MIRA1TAB3 PO (22:48)
[2017-01-23] MEDS ORDERED: OXYC-57 PO (22:48)
[2017-01-23] MEDS ORDERED: PREG1CAP34 PO (22:52)
[2017-01-23] MEDS ORDERED: NITR-5 PO (22:52)
[2017-01-23] MEDS ORDERED: CRG3125 PO (22:52)
[2017-01-23] MEDS ORDERED: FLUO40CA8 PO (22:52)
[2017-01-23] MEDS ORDERED: ZOLP10TA PO (22:52)
[2017-01-23] MEDS ORDERED: PRLSR20 PO (22:52)
[2017-01-23] MEDS ORDERED: TAMS0.4C38 PO (22:52)
[2017-01-23] MEDS ORDERED: DUTA0.5C PO (22:52)
[2017-01-23] MEDS ORDERED: LOSA50TA6 PO (22:52)
[2017-01-23] MEDS ORDERED: FERR1TAB23 PO (22:52)
[2017-01-23] MEDS ORDERED: COLC0.6T54 PO (22:52)
[2017-01-23] MEDS ORDERED: SPIR25TA PO (22:52)
[2017-01-23] MEDS ORDERED: OPTIRAY 320 IV PRN (23:00)
[2017-01-23] MEDS ORDERED: MoRPHine SULFATE 4 MG/ML 1 ML CARP\\VIAL IV STA (23:31)
[2017-01-23] MEDS ORDERED: CARVEDILOL 3.125 MG TAB PO ONE (23:45)
[2017-01-24 00:40] VITALS: BP 165/85; PULSE 88; O2SAT 97
--- NOTE | 2017-01-24 07:40 | DIAGNOSTIC IMAGING REPORT ---
CHEST CTA for PULMONARY ARTERIES CT DOSE: 820.11 mGy.cm HISTORY: Short of breath. Atypical chest pain. TECHNIQUE: Multiaxial CT images of the chest were performed following the intravenous administration of contrast to evaluate the pulmonary arteries. Maximal intensity projection images were also obtained. A dose lowering technique was utilized adhering to the principles of ALARA. COMPARISON STUDY: Chest CT 01/16/2017. FINDINGS: Normal caliber thoracic aorta with no evidence for dissection. No evidence for pulmonary embolus. The visualized liver and spleen are unremarkable. The heart is normal in size. No mediastinal or hilar lymphadenopathy. No pleural or pericardial effusions. The old, healed left-sided rib fractures. No pneumothorax. The central airways are patent. No focal lung consolidations to suggest pneumonia. Stable 6 mm nodule within the right upper lobe. Stable 3 mm nodule within the right lower lobe on image 116. IMPRESSION: No evidence for pulmonary embolus. Stable 6 mm nodule within the right upper lobe. Electronically signed by: Silver Rhodes M.D. 01/24/2017 7:38 AM Dictated Date/Time: 01/24/2017 7:34 AM
[2017-03-12] MEDS ORDERED: ZNT150 PO (10:50)
[2017-03-12] MEDS ORDERED: INSDGI SC (10:50)
[2017-03-12] MEDS ORDERED: SPIR25TA PO (10:50)
[2017-03-12] MEDS ORDERED: FURO80TA63 PO (10:50)
[2017-03-12] MEDS ORDERED: VERA1TAB52 PO (10:50)
[2017-03-12] MEDS ORDERED: PRT40 PO (10:50)
[2017-03-12] MEDS ORDERED: LVNIS150 SC (10:50)
== END 2017-01-24 00:41 | disposition home or self-care (01) ==
LOC: C.EDB 19:59 → C.EDC 01-24 00:41
DX: R07.2 Precordial pain (principal); Z86.711 Personal history of pulmonary embolism; Z79.01 Long term (current) use of anticoagulants; I10 Essential (primary) hypertension; E11.9 Type 2 diabetes mellitus without complications; K21.9 Gastro-esophageal reflux disease without esophagitis; M10.9 Gout, unspecified; G20 Parkinson's disease; Z80.9 Family history of malignant neoplasm, unspecified; Z83.3 Family history of diabetes mellitus; Z82.49 Family history of ischemic heart disease and other diseases of the circulatory system; Z79.4 Long term (current) use of insulin; Z79.899 Other long term (current) drug therapy

== ENCOUNTER 2017-02-21 18:48 | Inpatient (IN) | payer OTHER ==
[~2017-02-21] VITALS: Ht 175.3 cm; Wt 128.5 kg
[~2017-02-21 18:48] MED LIST changes: +ASCO500T3 PO; +COLC0.6T54 PO; +CRG3125 PO; +DTRSR/2 PO; +DUTA0.5C PO; +FERR1TAB23 PO; +FLUO40CA8 PO; -FURO40TA3 PO; +FURO80TA63 PO; +ISOS-11 PO; +LOSA50TA6 PO; +MIRA1TAB3 PO; +NITR-5 PO; +OXYC-57 PO; +PRLSR20 PO; +SPIR25TA PO; +TAMS0.4C38 PO; +ZOLP10TA PO
[2017-02-21] MEDS ORDERED: ONDANSETRON INJ 2 MG/ML 2 ML VIAL IV STA (19:10)
[2017-02-21] MEDS ORDERED: HYDROmorphone INJ 0.5 MG/0.5 ML SYR IV STA (19:10)
[2017-02-21 19:20] LABS: BASO % 0.3 %; BASO ABS # 0.02 K/uL (0-0.2); COMPLETE YES; EOS % 4.5 %; HEMATOCRIT 43.6 % (42-52); IG% 0.3 %; LYMPH ABS # 1.56 K/uL (1.2-3.4); MEAN CELL VOLUME 88.8 fL (80-100); MEAN CORPUSCULAR HEMOGLOBIN 28.7 pg (25-34); MEAN CORPUSCULAR HGB CONC 32.3 g/dl (32-36); MEAN PLATELET VOLUME 9.8 fL (7.4-10.4); MONO % 7.2 %; NEUT % 61.7 %; PLATELET COUNT 193 K/uL (130-400); RED BLOOD COUNT 4.91 M/uL (4.7-6.1); WHITE BLOOD COUNT 6.01 K/uL (4.8-10.8)
[2017-02-21] MEDS ORDERED: OMEP40CA41 PO (19:27)
[2017-02-21 19:38] LABS: ALKALINE PHOSPHATASE 131 U/L (45-117); ALT/SGPT 30 U/L (12-78); AST/SGOT 20 U/L (15-37); BLOOD UREA NITROGEN 20 mg/dl (7-18); BUN/CREATININE RATIO 15.5 (10-20); CALCIUM 9.3 mg/dl (8.5-10.1); CARBON DIOXIDE 28 mmol/L (21-32); CHLORIDE 103 mmol/L (98-107); CKMB/CK RATIO 2.2 (0-3.0); GLUCOSE 290 mg/dl (70-99); POTASSIUM 4.7 mmol/L (3.5-5.1); SODIUM 137 mmol/L (136-145)
--- NOTE | 2017-02-21 19:42 | DIAGNOSTIC IMAGING REPORT ---
CHEST ONE VIEW PORTABLE CLINICAL HISTORY: CHEST PAIN dyspnea COMPARISON STUDY: 01/23/2017 FINDINGS: The bones soft tissues and hemidiaphragms are normal. The cardiomediastinal silhouette is normal. The lungs are clear. The pulmonary vasculature is normal. IMPRESSION: Negative chest. The above report was generated using voice recognition software. It may contain grammatical, syntax or spelling errors. Electronically signed by: Kannan Bhakta M.D. 02/21/2017 7:41 PM Dictated Date/Time: 02/21/2017 7:40 PM
[2017-02-21 20:05] LABS: INR 0.9 (0.9-1.1); PARTIAL THROMBOPLASTIN RATIO 1.1; PROTHROMBIN TIME (PATIENT) 10.1 SECONDS (9.0-12.0)
[2017-02-21] MEDS ORDERED: ASPIRIN 81 MG CHEW PO STA (20:23)
[2017-02-21] MEDS ORDERED: METOPROLOL TARTRATE 1 MG/ML VIAL IV STA (20:23)
--- NOTE | 2017-02-21 20:58 | EMERGENCY ROOM VISIT NOTE ---
History Report prepared by Tyra: Macy Najera Under the Supervision of: Dr. Grover Norwood M.D. First contact with patient: 18:54 Stated Complaint: CHEST PAIN History of Present Illness The patient is a 62 year old male who presents to the Emergency Room with complaints of waxing and waning chest pain starting 1000 this morning. He presents to the ED by EMS. He has had SOB with exertion today and upper abdominal pressure. His chest pain is worse with breathing. He has a history of PE. He had an ultrasound January 23 which showed a chronic clot on the right side. CT chest was unchanged from prior. He has been on Lovenox since 2003. He notes that he has had pain since the beginning of January. It comes and goes. It currently is not as bad as it was this morning. He states that he would not be here if the [facility]nurse did not tell him to come. He states that he has a rash on his arms and itching on his back. He has had urinary frequency. He has a history of hypertension. He took his medications this morning. He has not taken anything for his pain today. He did take 3 Percocet yesterday. Pt denies LOC, headache, fevers, chills, diaphoresis, visual changes, neck pain, nausea, vomiting, back pain, leg swelling, melena, hematochezia, numbness, weakness, lymphadenopathy, or other complaints. Source of History: patient Onset: 1000 Position: chest Quality: pressure Timing: waxes/wanes Modifying Factors (Worsening): breathing Associated Symptoms: + SOB, + abdominal pain, + urinary symptoms, + rash Review of Systems See HPI for pertinent positives and negatives. A total of ten systems were reviewed and were otherwise negative. Past Medical & Surgical Medical Problems: (1) Catheter-associated urinary tract infection (2) Diabetes mellitus (3) Dyspnea (4) Gastroesophageal reflux disease (5) Gout (6) Parkinson's disease (7) Pulmonary embolism (8) Right upper extremity numbness (9) Syncope (10) Weakness Family History Cancer Diabetes mellitus FH: heart disease Hypertension Social History Smoking Status: Never Smoker Alcohol Use: none Drug Use: none Marital Status: Housing Status: lives alone Occupation Status: retired Current/Historical Medications Scheduled Allopurinol (Allopurinol), 100 MG PO DAILY Amantadine HCl (Amantadine HCl), 100 MG PO BID Ascorbic Acid (Vitamin C), 500 MG PO QAM Carbidopa/Levodopa (Sinemet Cr 50MG/200MG), 1 TAB PO BID Dutasteride (Avodart), 0.5 MG PO DAILY Enoxaparin Sodium (Enoxaparin Sodium), 150 MG SC Q12 Ferrous Sulfate (Iron), 1 TAB PO DAILY Fluoxetine (Prozac), 40 MG PO DAILY Furosemide (Lasix), 80 MG PO DAILY Insulin Glargine (Lantus), 30 UNITS SC BID Isosorbide Mononitrate (Isosorbide Mononitrate ER), 30 MG PO QAM Losartan Potassium (Cozaar), 50 MG PO DAILY Mirabegron (Myrbetriq Er), 50 MG PO DAILY Omeprazole (Prilosec), 1 CAP PO DAILY Pregabalin (Lyrica), 300 MG PO BID Simvastatin (Zocor), 20 MG PO QPM Spironolactone (Aldactone), 25 MG PO BID Tamsulosin Hcl (Flomax), 0.4 MG PO DAILY Scheduled PRN Colchicine (Colchicine), 0.6 MG PO DAILY PRN for GOUT Oxycodone/Acetaminophen 5MG/325MG (Percocet 5MG/325MG), 1-2 TABLETS PO Q4H PRN for Pain Zolpidem Tartrate (Ambien), 10 MG PO HS PRN for Sleep Allergies Coded Allergies: Penicillins (Verified Allergy, Severe, 02/21/17) SEVERE RXN PER PT Cephalosporins (Verified Allergy, Unknown, 02/21/17) Sulfamethoxazole w/Trimethoprim (Verified Allergy, Unknown, ., 02/21/17) TAKES LASIX AT HOME Lisinopril (Verified Adverse Reaction, Intermediate, Cough, 02/21/17) Physical Exam Vital Signs Date Time Temp Pulse Resp B/P (MAP) Pulse Ox O2 Delivery O2 Flow Rate FiO2 02/21/17 20:39 111 155/96 02/21/17 20:31 155/96 02/21/17 20:30 114 19 02/21/17 20:00 107 16 177/107 02/21/17 19:36 108 02/21/17 19:35 108 18 155/84 98 Room Air 02/21/17 18:48 36.4 104 20 187/107 98 Room Air 02/21/17 18:48 98 Room Air 02/21/17 18:48 98 Room Air Physical Exam GENERAL: Awake, alert, well-appearing, in no distress HENT: Normocephalic, atraumatic. Oropharynx unremarkable. EYES: Normal conjunctiva. Sclera non-icteric. NECK: Supple. No nuchal rigidity. FROM. No JVD. RESPIRATORY: Clear to auscultation. CARDIAC: Borderline tachycardic rate, normal rhythm. Extremities warm and well perfused. Pulses equal. ABDOMEN: Soft, non-distended. No tenderness to palpation. No rebound or guarding. No masses. RECTAL: Deferred. MUSCULOSKELETAL: Chest examination reveals no tenderness. No joint edema. LOWER EXTREMITIES: Calves are equal size bilaterally and non-tender. 1+ lower extremity edema. Chronic venous discoloration. NEURO: Normal sensorium. No sensory or motor deficits noted. SKIN: No rash or jaundice noted. Medical Decision & Procedures ER Provider Diagnostic Interpretation: Radiology results as stated below per my review and radiologist interpretation: CHEST ONE VIEW PORTABLE CLINICAL HISTORY: CHEST PAIN dyspnea COMPARISON STUDY: 01/23/2017 FINDINGS: The bones soft tissues and hemidiaphragms are normal. The cardiomediastinal silhouette is normal. The lungs are clear. The pulmonary vasculature is normal. IMPRESSION: Negative chest. The above report was generated using voice recognition software. It may contain grammatical, syntax or spelling errors. Electronically signed by: Kannan Bhakta M.D. 02/21/2017 7:41 PM Dictated Date/Time: 02/21/2017 7:40 PM Laboratory Results 02/21/17 18:42 Red Blood Count 4.91, Mean Corpuscular Volume 88.8, Mean Corpuscular Hemoglobin 28.7, Mean Corpuscular Hemoglobin Concent 32.3, Mean Platelet Volume 9.8, Neutrophils (%) (Auto) 61.7, Lymphocytes (%) (Auto) 26.0, Monocytes (%) (Auto) 7.2, Eosinophils (%) (Auto) 4.5, Basophils (%) (Auto) 0.3, Neutrophils # (Auto) 3.71, Lymphocytes # (Auto) 1.56, Monocytes # (Auto) 0.43, Eosinophils # (Auto) 0.27, Basophils # (Auto) 0.02 02/21/17 18:42 Test 9/9/17 18:42 02/21/17 19:28 02/21/17 19:47 White Blood Count 6.01 K/uL (4.8-10.8) Red Blood Count 4.91 M/uL (4.7-6.1) Hemoglobin 14.1 g/dL (14.0-18.0) Hematocrit 43.6 % (42-52) Mean Corpuscular Volume 88.8 fL (80-100) Mean Corpuscular Hemoglobin 28.7 pg (25-34) Mean Corpuscular Hemoglobin Concent 32.3 g/dl (32-36) Platelet Count 193 K/uL (130-400) Mean Platelet Volume 9.8 fL (7.4-10.4) Neutrophils (%) (Auto) 61.7 % Lymphocytes (%) (Auto) 26.0 % Monocytes (%) (Auto) 7.2 % Eosinophils (%) (Auto) 4.5 % Basophils (%) (Auto) 0.3 % Neutrophils # (Auto) 3.71 K/uL (1.4-6.5) Lymphocytes # (Auto) 1.56 K/uL (1.2-3.4) Monocytes # (Auto) 0.43 K/uL (0.11-0.59) Eosinophils # (Auto) 0.27 K/uL (0-0.5) Basophils # (Auto) 0.02 K/uL (0-0.2) RDW Standard Deviation 42.9 fL (36.4-46.3) RDW Coefficient of Variation 13.2 % (11.5-14.5) Immature Granulocyte % (Auto) 0.3 % Immature Granulocyte # (Auto) 0.02 K/uL (0.00-0.02) Anion Gap 6.0 mmol/L (3-11) Est Creatinine Clear Calc Drug Dose 77.7 ml/min Estimated GFR () 67.3 Estimated GFR (Non- 58.1 BUN/Creatinine Ratio 15.5 (10-20) Calcium Level 9.3 mg/dl (8.5-10.1) Total Bilirubin 0.2 mg/dl (0.2-1) Direct Bilirubin mg/dl (0-0.2) Aspartate Amino Transf (AST/SGOT) 20 U/L (15-37) Alanine Aminotransferase (ALT/SGPT) 30 U/L (12-78) Alkaline Phosphatase 131 U/L (45-117) Total Creatine Kinase 105 U/L (39-308) Creatine Kinase MB 2.3 ng/ml (0.5-3.6) Creatine Kinase MB Ratio 2.2 (0-3.0) Total Protein 7.7 gm/dl (6.4-8.2) Albumin 3.5 gm/dl (3.4-5.0) Lipase 240 U/L (73-393) Chemistry Specimen Hemolysis Bedside Troponin I 0.060 ng/ml (0-0.045) Prothrombin Time 10.1 SECONDS (9.0-12.0) Prothromb Time International Ratio 0.9 (0.9-1.1) Activated Partial Thromboplast Time 27.5 SECONDS (21.0-31.0) Partial Thromboplastin Ratio 1.1 Laboratory results reviewed by me Medications Administered Medications (Trade) Dose Ordered Sig/Apryl Route Start Time Stop Time Status Last Admin Dose Admin Hydromorphone HCl (Dilaudid Inj) 0.5 mg NOW STAT IV 02/21/17 19:10 02/21/17 19:12 DC 02/21/17 19:32 0.5 MG Ondansetron HCl (Zofran Inj) 4 mg NOW STAT IV 02/21/17 19:10 02/21/17 19:12 DC 02/21/17 19:32 4 MG Metoprolol Tartrate (Lopressor Iv) 5 mg NOW STAT IV 02/21/17 20:23 02/21/17 20:24 DC 02/21/17 20:39 5 MG Aspirin (Aspirin Chew) 324 mg NOW STAT PO 02/21/17 20:23 02/21/17 20:24 DC 02/21/17 20:39 324 MG ECG Indication: chest pain Rate (beats per minute): 99 Rhythm: sinus rhythm Findings: 1st degree AV block, no acute ischemic change, no ectopy ED Course 1908: The patient was evaluated in room C6. A complete history and physical exam was performed. 1909: Zofran Inj 4 mg IV, Dilaudid Inj 0.5 mg IV. 2022: Aspirin 324 mg PO, Lopressor Iv 5 mg IV. 2024: Upon reexamination, the patient was resting comfortably. I discussed the test results and treatment plan with him. The patient will be evaluated for further management. 2029: I discussed the patient's case with MYNOR Pelayo hospitalist. The patient will be evaluated for further treatment and disposition. Medical Decision Triage Nursing notes reviewed. The patient's presentation and history were concerning for chest pain. Etiologies such as cardiac ischemia, aortic dissection, pulmonary embolism, pneumonia, pneumothorax, musculoskeletal, infections, gastrointestinal, as well as others were entertained. The patient was evaluated. His ECG was performed and didn't reveal any evidence of acute ischemic change. Chest x-ray revealed no acute findings. The patient was hypertensive and tachycardic. He was treated with Dilaudid and Zofran. On reassessment he did feel better. The patient had blood work obtained. Patient's CBC and chemistry panel was unremarkable to hyperglycemia. The patient did have an elevated troponin. This was concerning given his tachycardia and hypertension coupled with his chest pain. The patient was given a dose of aspirin and IV Lopressor. Consultation was made with internal medicine. The case was discussed. The patient was evaluated in the Emergency Room for further management. Medication Reconcilliation Current Medication List: was personally reviewed by me Blood Pressure Screening Patient's blood pressure: Elevated blood pressure Referred to hospitalist. Consults Time Called: 2025 Consulting Physician: MYNOR Pelayo hospitalist Returned Call: 2029 Discussed the patient's case. The patient will be evaluated for further treatment and disposition. Impression Primary Impression: Chest pain Additional Impression: Elevated troponin Scribe Attestation The scribe's documentation has been prepared under my direction and personally reviewed by me in its entirety. I confirm that the note above accurately reflects all work, treatment, procedures, and medical decision making performed by me. Departure Information Dispostion Being Evaluated By Hospitalist Referrals Reza Ocasio Jr,D.O. (PCP) Problem Qualifiers
[2017-02-21] MEDS ORDERED: POLYETHYLENE (MIRALAX) 17 GM PACK PO PRN (21:30)
[2017-02-21] MEDS ORDERED: ALUMINUM/MAGNESIUM/SIMETH (MAALOX MAX) 30 ML UDC PO PRN (21:30)
[2017-02-21] MEDS ORDERED: ZOLPIDEM TARTRATE 10 MG TAB PO PRN (21:30)
[2017-02-21] MEDS ORDERED: ACETAMINOPHEN 325 MG TAB PO PRN (21:30)
[2017-02-21] MEDS ORDERED: MAGNESIUM HYDROXIDE SUSP 30 ML UDC PO PRN (21:30)
[2017-02-21] MEDS ORDERED: COLCHICINE 0.6 MG TAB PO PRN (21:30)
[2017-02-21] MEDS ORDERED: ONDANSETRON INJ 2 MG/ML 2 ML VIAL IV PRN (21:30)
[2017-02-21] MEDS ORDERED: MoRPHine SULFATE 2 MG/ML CARP IV PRN (21:30)
[2017-02-21] MEDS ORDERED: NITROGLYCERIN 0.4 MG SL PER TAB CHARGE SL PRN (21:30)
[2017-02-21 22:37] VITALS: BP 175/114; PULSE 81; TEMP 36.5; O2SAT 93; Ht 175.3 cm; Wt 128.5 kg
[2017-02-21] MEDS ORDERED: ENOXAPARIN 150 MG/1ML SYR SC SCH (23:00)
[2017-02-21] MEDS ORDERED: IV FLUIDS COMPLETED PRN (23:00)
[2017-02-21 23:07] VITALS: BP 167/90; TEMP 36.6; O2SAT 79
--- NOTE | 2017-02-21 23:40 | History and Physical ---
History & Physical Date & Time of Service: Feb 21, 2017 at 23:40 Chief Complaint: Chest Pain Primary Care Physician: Reza Ocasio Jr,D.O. History of Present Illness Source: patient, family, hospital records 62 yo M with hx HTN with LVH, Antiphospholipid syndrome, hx of PE, currently on Lovenox since 2003, hx of Reflux on Prilosec, hx Diabetes, presenting with Chest pain. Chest pain is described as non-radiation, substernal pressure sensation although he also describes a burning quality, up to 6/10 intensity which has been particularly notable within the last 2-3 days. Pain worsen with inspiration, however it is relieved by "burping". Patient reports no assocaition with meals. He reports ligth headedness, at baseline. He denies N/V fevers, chills. Patient reports he has had multiple Stress Tests and Cardiac Catheterizations that have not revealed any coronary disease. He had an echo 01/04/17 showing mild concentric LVH with Normal LV function and LVEF 60-65%. Past Medical/Surgical History Medical Problems: (1) Diabetes mellitus Status: Chronic (2) Gastroesophageal reflux disease Status: Chronic (3) Gout Status: Chronic (4) Parkinson's disease Status: Chronic (5) Pulmonary embolism Status: Resolved -Antiphospholipid syndrome -recurrent DVT Past Surg Hx -IVC Filter 2014 -Mechanical thrombolysis and angioplasty of thrombosis Family History Cancer Diabetes mellitus FH: heart disease Hypertension Social History Smoking Status: Never Smoker Smokeless Tobacco Use: No Alcohol Use: none Drug Use: none Marital Status: Housing status: lives alone Occupational Status: retired Immunizations History of Influenza Vaccine: Unknown History of Tetanus Vaccine?: probably over 10 yrs ago History of Pneumococcal: apr 2004 History of Hepatitis B Vaccine: 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 Multi-Drug Resistant Organisms History of MDRO: No Allergies Coded Allergies: Penicillins (Verified Allergy, Severe, 02/21/17) SEVERE RXN PER PT Cephalosporins (Verified Allergy, Unknown, 02/21/17) Sulfamethoxazole w/Trimethoprim (Verified Allergy, Unknown, ., 02/21/17) TAKES LASIX AT HOME Lisinopril (Verified Adverse Reaction, Intermediate, Cough, 02/21/17) Home Medications Scheduled Allopurinol (Allopurinol), 100 MG PO DAILY Amantadine HCl (Amantadine HCl), 100 MG PO BID Ascorbic Acid (Vitamin C), 500 MG PO QAM Carbidopa/Levodopa (Sinemet Cr 50MG/200MG), 1 TAB PO BID Dutasteride (Avodart), 0.5 MG PO DAILY Enoxaparin Sodium (Enoxaparin Sodium), 150 MG SC Q12 Ferrous Sulfate (Iron), 1 TAB PO DAILY Fluoxetine (Prozac), 40 MG PO DAILY Furosemide (Lasix), 80 MG PO DAILY Insulin Aspart (Novolog Flexpen), 0 SQ UD Insulin Glargine (Lantus), 30 UNITS SC BID Isosorbide Mononitrate (Isosorbide Mononitrate ER), 30 MG PO QAM Losartan Potassium (Cozaar), 50 MG PO DAILY Mirabegron (Myrbetriq Er), 50 MG PO DAILY Omeprazole (Prilosec), 1 CAP PO DAILY Pregabalin (Lyrica), 300 MG PO BID Simvastatin (Zocor), 20 MG PO QPM Spironolactone (Aldactone), 25 MG PO BID Tamsulosin Hcl (Flomax), 0.4 MG PO DAILY Scheduled PRN Colchicine (Colchicine), 0.6 MG PO DAILY PRN for GOUT Oxycodone/Acetaminophen 5MG/325MG (Percocet 5MG/325MG), 1-2 TABLETS PO Q4H PRN for Pain Zolpidem Tartrate (Ambien), 10 MG PO HS PRN for Sleep Review of Systems Constitutional: No fever, No chills Respiratory: + cough, + shortness of breath Cardiovascular: + chest pain, No edema, No palpitations Abdomen: No pain, No nausea, No vomiting Musculoskeletal: No swelling, No calf pain Genitourinary - Male: No hematuria, No dysuria, No urinary frequency Hematologic / Lymphatic: + problem reported (petechiae) Integumentary: No rash, No itch Physical Exam Vital Signs Date Time Temp Pulse Resp B/P (MAP) Pulse Ox O2 Delivery O2 Flow Rate FiO2 02/21/17 22:37 36.5 81 20 175/114 93 Room Air 02/21/17 22:28 79 21 177/104 95 02/21/17 21:06 86 16 94 02/21/17 21:01 163/128 02/21/17 20:39 111 155/96 02/21/17 20:36 111 18 95 02/21/17 20:31 155/96 02/21/17 20:30 114 19 02/21/17 20:00 107 16 177/107 02/21/17 19:36 108 02/21/17 19:35 108 18 155/84 98 Room Air 02/21/17 18:48 36.4 104 20 187/107 98 Room Air 02/21/17 18:48 98 Room Air 02/21/17 18:48 98 Room Air GENERAL: alert, obese, no distress, non-toxic EYE EXAM: normal conjunctiva, PERRL and EOM's grossly intact NECK: supple, no nuchal rigidity, no adenopathy, non-tender LUNGS: Clear to auscultation. Normal chest wall mechanics HEART: no murmurs, S1 normal and S2 normal ABDOMEN: abdomen soft, non-tender, normo-active bowel sounds, no masses, no rebound or guarding. SKIN: scattered petechiae, sonny UE, back and no bruising UPPER EXTREMITIES: upper extremities are grossly normal. LOWER EXTREMITIES: No pitting edema. NEURO EXAM: Normal sensorium, cranial nerves II-XII grossly intact, normal speech Diagnostics Laboratory Results Results Past 24 Hours Test 02/21/17 18:42 02/21/17 19:28 02/21/17 19:47 Range/Units White Blood Count 6.01 4.8-10.8 K/uL Red Blood Count 4.91 4.7-6.1 M/uL Hemoglobin 14.1 14.0-18.0 g/dL Hematocrit 43.6 42-52 % Mean Corpuscular Volume 88.8 80-100 fL Mean Corpuscular Hemoglobin 28.7 25-34 pg Mean Corpuscular Hemoglobin Concent 32.3 32-36 g/dl Platelet Count 193 130-400 K/uL Mean Platelet Volume 9.8 7.4-10.4 fL Neutrophils (%) (Auto) 61.7 % Lymphocytes (%) (Auto) 26.0 % Monocytes (%) (Auto) 7.2 % Eosinophils (%) (Auto) 4.5 % Basophils (%) (Auto) 0.3 % Neutrophils # (Auto) 3.71 1.4-6.5 K/uL Lymphocytes # (Auto) 1.56 1.2-3.4 K/uL Monocytes # (Auto) 0.43 0.11-0.59 K/uL Eosinophils # (Auto) 0.27 0-0.5 K/uL Basophils # (Auto) 0.02 0-0.2 K/uL RDW Standard Deviation 42.9 36.4-46.3 fL RDW Coefficient of Variation 13.2 11.5-14.5 % Immature Granulocyte % (Auto) 0.3 % Immature Granulocyte # (Auto) 0.02 0.00-0.02 K/uL Sodium Level 137 136-145 mmol/L Potassium Level 4.7 3.5-5.1 mmol/L Chloride Level 103 98-107 mmol/L Carbon Dioxide Level 28 21-32 mmol/L Anion Gap 6.0 3-11 mmol/L Blood Urea Nitrogen 20 7-18 mg/dl Creatinine 1.30 0.60-1.40 mg/dl Est Creatinine Clear Calc Drug Dose 77.7 ml/min Estimated GFR () 67.3 Estimated GFR (Non- 58.1 BUN/Creatinine Ratio 15.5 10-20 Random Glucose 290 70-99 mg/dl Calcium Level 9.3 8.5-10.1 mg/dl Total Bilirubin 0.2 0.2-1 mg/dl Direct Bilirubin 0-0.2 mg/dl Aspartate Amino Transf (AST/SGOT) 20 15-37 U/L Alanine Aminotransferase (ALT/SGPT) 30 12-78 U/L Alkaline Phosphatase 131 45-117 U/L Total Creatine Kinase 105 39-308 U/L Creatine Kinase MB 2.3 0.5-3.6 ng/ml Creatine Kinase MB Ratio 2.2 0-3.0 Troponin I < 0.015 0-0.045 ng/ml Total Protein 7.7 6.4-8.2 gm/dl Albumin 3.5 3.4-5.0 gm/dl Lipase 240 73-393 U/L Chemistry Specimen Hemolysis Bedside Troponin I 0.060 0-0.045 ng/ml Prothrombin Time 10.1 9.0-12.0 SECONDS Prothromb Time International Ratio 0.9 0.9-1.1 Activated Partial Thromboplast Time 27.5 21.0-31.0 SECONDS Partial Thromboplastin Ratio 1.1 Diagnostic Radiology CHEST ONE VIEW PORTABLE CLINICAL HISTORY: CHEST PAIN dyspnea COMPARISON STUDY: 01/23/2017 FINDINGS: The bones soft tissues and hemidiaphragms are normal. The cardiomediastinal silhouette is normal. The lungs are clear. The pulmonary vasculature is normal. IMPRESSION: Negative chest. CXR normal EKG sinus rhythm, 1st degree AV block, no acute ischemic change, no ectopy Impression Assessment and Plan 62 yo M w/ hx of HTN with concentric LVH, Diabetes, antiphospholipid syndrome/ hx of DVT,PE s/p IVC filter, on chronic anticoagulation with lovenox, HX of GERD on Prilosec, presented with chest pain. Chest Pain Admit to Tele (Obs) - GERD vs, recurrence of PE vs angina vs ACS vs MSK - EKG, initial troponin unremarkable for ACS, PE considered given hx and positive hypercoagulability however patient on IVC filter and anticoagulation. GERD possible based on known hx and burning quality - CXR negative - Echo 01/04/17 : mild concentric LVH. Normal LV function. LVEF 60-65%. - trend troponins q 8 - F/u lipid panel Hx antiphospholipid syndrome, Hx of PE -s/p IVC filter - c/w lovenox from home GERD - protonix DVT Proph - already on Lovenox DM - Glycemic consult Parkinsons - c/w Amantadine, Sinemet Full code Attending Addendum: I have physically seen and examined this patient, have directed the resident's medical activities, and agree with the H&P as noted above with the following exceptions as noted. The patient is awake, alert and oriented 3, well-developed and well-nourished , normocephalic and atraumatic, lying in bed and in no acute distress. HEENT--PERRL, EOMI, mucous membranes and oropharynx normal. Neck--supple, no JVD or bruits, thyroid normal, trachea midline, no adenopathy. Heart--normal S1 and S2, no extra beats, no murmurs, rubs or gallops. Lungs--clear bilaterally with good air movement, no respiratory distress, no accessory muscle use. Abdomen--normal bowel sounds and soft, nontender and nondistended, no hernias or masses, no organomegaly. Extremities--no cyanosis, clubbing or edema. There are good distal pulses b/l. Dermatologic--normal skin turgor, normal color, warm and dry. Few scattered petechiae. Neurologic--cranial nerves II through XII grossly intact, motor and sensory examination normal. Rheumatologic--normal range of motion, nontender, muscles and joints. Psychiatric--normal affect. Assessment and Plan: Elevated troponin/CAD/hypertension/diastolic CHF-- The patient will be admitted to telemetry for serial cardiac enzymes, cardiac rhythm monitoring and a 2-D echocardiogram with Dopplers. Continue furosemide 80 mg by mouth daily, Imdur 30 mg by mouth every morning, losartan potassium 50 mg by mouth daily, and spironolactone 25 mg by mouth twice a day. Pulmonary embolism history/DVT history/antiphospholipid syndrome/status post IVC filter/chronic anticoagulation with Lovenox-- Continue Lovenox 150 mg subcutaneous every 12 hours. Diabetes mellitus-- Continue Lantus 30 units subcutaneous twice a day. Place on Accu-Cheks before meals and at bedtime with NovoLog coverage per scale. Hyperlipidemia--continue simvastatin 20 no grams by mouth every evening. Parkinson's-- continue carbidopa/levodopa CR 50/200, 1 by mouth twice a day and amantadine 100 mg by mouth twice a day. If patient continues to have volatile blood pressure/vital signs, consideration should be given to Parkinson plus syndrome. BPH/bladder spasm-- Continue Avodart 0.5 mg by mouth daily, Myrbetriq ER 50 mg by mouth daily, and tamsulosin 0.4 mg by mouth at bedtime. Anxiety/depression/neuropathy-- continue fluoxetine 40 mg by mouth daily and Lyrica 3 mg by mouth twice a day. GERD-- change omeprazole to pantoprazole. Gout-- Continue allopurinol 100 mg by mouth daily. Level of Care Telemetry Advanced Directives Existing Advance Directive: No Existing Living Will: Yes Existing Power of Entrepreneurship Program Director: Yes Resuscitation Status FULL RESUSCITATION VTE Prophylaxis VTE Risk Assessment Done? Y/N: Yes Risk Level: Moderate Given or contraindicated: SCD's Social Service Consult None Apply
[2017-02-22] VITALS (7 sets, daily range): BP systolic 131–182; BP diastolic 72–94; PULSE 67–99; TEMP 36.4–36.5; O2SAT 94–98
[2017-02-22] MEDS: NITROGLYCERIN OINT 2% 1GM PACKET EXT SCH ×3 (00:01→12:00)
[2017-02-22] MEDS ORDERED: PHARMACY GLYCEMIC MGMT CONSULT PRN (02:19)
[2017-02-22] MEDS ORDERED: INSULIN GLARGINE SOLOSTAR 100 UNITS/ML 3 ML PEN SC STA (02:22)
[2017-02-22] MEDS ORDERED: INSULIN ASPART 100 UNITS/ML 3 ML PEN SC STA (02:24)
[2017-02-22] MEDS ORDERED: DEXTROSE 50% 50 ML SYR IV PRN (02:30)
[2017-02-22] MEDS ORDERED: GLUCOSE 10 TABS/TUBE PO PRN (02:30)
[2017-02-22] MEDS ORDERED: GLUCAGON FOR INJ 1 MG VIAL SQ PRN (02:30)
[2017-02-22] MEDS ORDERED: GLUCOSE 40% GEL 15 GM TUBE PO PRN (02:30)
[2017-02-22] MEDS: AVODART~ORDER AWAITING ACTION SCH ×3 (07:22→16:00)
[2017-02-22] MEDS: ISOSORBIDE MONONITRATE 30 MG TABCR PO SCH (07:54)
[2017-02-22] MEDS: ALLOPURINOL 100 MG TAB PO SCH (07:55)
[2017-02-22] MEDS: MIRABEGRON ER 25 MG TAB PO SCH (07:55)
[2017-02-22] MEDS: CARBIDOPA/LEVODOPA 50/200MG EXT REL TAB PO SCH ×2 (07:55→20:55)
[2017-02-22] MEDS: AMANTADINE HCL 100 MG CAP PO SCH ×2 (07:56→20:55)
[2017-02-22] MEDS: PANTOprazole SOD 40 MG TAB PO SCH (07:56)
[2017-02-22] MEDS: SIMVASTATIN 20 MG TAB PO SCH (07:56)
[2017-02-22] MEDS: FLUOXETINE HCL 20 MG CAP PO SCH (07:56)
[2017-02-22] MEDS: TAMSULOSIN HCL 0.4 MG CAP PO SCH (07:56)
[2017-02-22] MEDS: ENOXAPARIN 150 MG/1ML SYR SC SCH ×2 (07:57→20:56)
[2017-02-22] MEDS: INSULIN ASPART 100 UNITS/ML 3 ML PEN SC SCH ×4 (08:03→21:01)
[2017-02-22] MEDS: PREGABALIN 150 MG CAP PO SCH ×2 (08:07→20:55)
[2017-02-22] MEDS ORDERED: INSULIN GLARGINE SOLOSTAR 100 UNITS/ML 3 ML PEN SC SCH ×3 (09:00→21:00)
--- NOTE | 2017-02-22 10:21 | Pharmacy Progress Note ---
Glycemic Control Intl Consult Date of Service Feb 22, 2017. Scope Glycemic Pharmacist consulted by Dr Sherman on 02/22/17 for glycemic control and to write orders per [facility] inpatient glycemic control protocol Objective Weight (Kilograms): 129.100 Accuchecks BSG (last 24hrs): Test 02/21/17 18:42 02/22/17 02:20 02/22/17 06:26 Random Glucose 290 mg/dl (70-99) Bedside Glucose 254 mg/dl (70-99) 195 mg/dl (70-99) Laboratory Data (last 24hrs) Test 02/21/17 18:42 Anion Gap 6.0 mmol/L BUN/Creatinine Ratio 15.5 Blood Urea Nitrogen 20 mg/dl Creatinine 1.30 mg/dl Potassium Level 4.7 mmol/L Sodium Level 137 mmol/L White Blood Count 6.01 K/uL Red Blood Count 4.91 M/uL Hemoglobin 14.1 g/dL Hematocrit 43.6 % Mean Corpuscular Volume 88.8 fL Mean Corpuscular Hemoglobin 28.7 pg Mean Corpuscular Hemoglobin Concent 32.3 g/dl Platelet Count 193 K/uL Mean Platelet Volume 9.8 fL Neutrophils (%) (Auto) 61.7 % Lymphocytes (%) (Auto) 26.0 % Monocytes (%) (Auto) 7.2 % Eosinophils (%) (Auto) 4.5 % Basophils (%) (Auto) 0.3 % Neutrophils # (Auto) 3.71 K/uL Lymphocytes # (Auto) 1.56 K/uL Monocytes # (Auto) 0.43 K/uL Eosinophils # (Auto) 0.27 K/uL Basophils # (Auto) 0.02 K/uL Recent Pertinent Medications Outpatient Anti-diabetic Regimen: * Lantus 30 units BID * Novolog per sliding scale (rarely uses) <- was not on med list so I have updated * A1c = 6.1 % 11/2016 The patient is currently receiving: * Basal insulin: Lantus 30 units x 1 ~0200 this AM * Correctional Insulin: Novolog Correction per scale ACHS Goal Range: Low 140 mg/dL - High 180 mg/dL Correction Factor: 20 mg/dL/unit * Prandial insulin: Per carb ratio of 1 unit per 6 grams CHO consumed Risk Factors for Insulin Resistance: * None other than baseline elevated BSGs on admission Assessment & Plan ASSESSMENT: * 62 y/o male with type 2 diabetes, admitted with chest pain * Patient is well known to the pharmacy glycemic service from previous admissions. A1c is significantly improved from a year ago. At one point, he had stopped all insulin against physician orders but the current regimen seems to be working well now based on the A1c. * Since his total daily dose is 60 units/day, will decrease his Lantus dose and split 50/50 to prevent hypoglycemia from all basal insulin. * ADA & AACE recommend a goal blood sugar range 140-180 mg/dl for the majority of critically ill & non-critically ill patients. However, more stringent targets may be selected in individual cases. Will utilize more stringent goal of 110-140mg/dl based on patient age & comorbidities. Additionally, tighter glycemic control is warranted to facilitate wound/infection healing. PLAN FOR INPATIENT GLYCEMIC CONTROL: * Change Lantus to 15 units SQ BID - start tonight * Change correction factor to 25 mg/dl/unit * Change carb ratio to 1 unit per 8 grams CHO consumed * Change goal range to Low 110 mg/dL - High 140 mg/dL DISCHARGE RECOMMENDATIONS: * Continue Lantus + Novolog per sliding scale * A1c is excellent and patient reports no lows on this regimen Thank you.
[2017-02-22] MEDS ORDERED: NVLGI/PEN SQ (10:23)
--- NOTE | 2017-02-22 11:09 | Family Medicine Progress Note ---
Progress Note Date of Service Feb 22, 2017. Subjective Pt evaluation today including: conversation w/ patient, physical exam, chart review, lab review Pain: reports mild chest pain PO Intake: tolerating Voiding: no voiding problems This AM Mr. Gonzalez reports having abdominal bloating, dizziness and rash on arms which brought to the hospital. He reports mild chest pain and sob at all times which is at baseline for him given his chronic PEs. Of note: he did have a BM yesterday, was passing gas and not constipated. This AM howver the abdominal bloating seems to have improved but the rash is still there and he feels dizzy still. Constitutional: No fever Respiratory: + shortness of breath Cardiovascular: + chest pain Abdomen: + problem reported (denied abdominal bloating ), No pain, No nausea , No vomiting, No constipation Musculoskeletal: + swelling, + calf pain Male : No dysuria Neurologic: + problem reported (dizziness reported) Skin: + rash Medications Current Inpatient Medications Medications (Trade) Dose Ordered Sig/Apryl Route Start Time Stop Time Status Last Admin Dose Admin Acetaminophen (Tylenol Tab) 650 mg Q4H PRN PO 02/21/17 21:30 03/23/17 21:29 Al Hydrox/Mg Hydrox/Simethicone (Maalox Max Susp) 15 ml Q4H PRN PO 02/21/17 21:30 03/23/17 21:29 Magnesium Hydroxide (Milk Of Magnesia Susp) 30 ml Q12H PRN PO 02/21/17 21:30 03/23/17 21:29 Ondansetron HCl (Zofran Inj) 4 mg Q6H PRN IV 02/21/17 21:30 03/23/17 21:29 Nitroglycerin (Nitrostat Tab) 0.4 mg UD PRN SL 02/21/17 21:30 03/23/17 21:29 Nitroglycerin (Nitroglycerin 2% Oint) 1 inch Q6H EXT 02/22/17 00:00 03/24/17 00:00 02/22/17 05:49 1 INCH Morphine Sulfate (MoRPHine SULFATE INJ) 2 mg Q30M PRN IV 02/21/17 21:30 03/07/17 21:29 Polyethylene (Miralax Powder Packet) 17 gm DAILY PRN PO 02/21/17 21:30 03/23/17 21:29 Allopurinol (Zyloprim Tab) 100 mg DAILY PO 02/22/17 09:00 03/24/17 08:59 02/22/17 07:55 100 MG Amantadine HCl (Symmetrel Cap) 100 mg BID PO 02/22/17 09:00 03/24/17 08:59 02/22/17 07:56 100 MG Carbidopa/Levodopa (Sinemet Cr 50/ 200MG Tab) 1 tab BID PO 02/22/17 09:00 03/24/17 08:59 02/22/17 07:55 1 TAB Colchicine (Colchicine Tab) 0.6 mg DAILY PRN PO 02/21/17 21:30 03/23/17 21:29 Enoxaparin Sodium (Lovenox Inj) 150 mg Q12 SC 02/22/17 09:00 03/24/17 08:59 02/22/17 07:57 150 MG Fluoxetine HCl (Prozac Cap) 40 mg DAILY PO 02/22/17 09:00 03/24/17 08:59 02/22/17 07:56 40 MG Isosorbide Mononitrate (Imdur Ext Rel Tab) 30 mg QAM PO 02/22/17 09:00 03/24/17 08:59 02/22/17 07:54 30 MG Mirabegron (Myrbetriq Er) 50 mg DAILY PO 02/22/17 09:00 03/24/17 08:59 02/22/17 07:55 50 MG Pregabalin (Lyrica Cap) 300 mg BID PO 02/22/17 09:00 03/24/17 08:59 02/22/17 08:07 300 MG Simvastatin (Zocor Tab) 20 mg QPM PO 02/22/17 21:00 03/24/17 20:59 02/22/17 07:56 20 MG Tamsulosin HCl (Flomax Cap) 0.4 mg DAILY PO 02/22/17 09:00 03/24/17 08:59 02/22/17 07:56 0.4 MG Zolpidem Tartrate (Ambien Tab) 10 mg HS PRN PO 02/21/17 21:30 03/23/17 21:29 Miscellaneous Information (Order Awaiting Action) 1 ea QS N/A 02/22/17 00:00 03/24/17 00:00 Pantoprazole Sodium (Protonix Tab) 40 mg QAM PO 02/22/17 09:00 03/24/17 08:59 02/22/17 07:56 40 MG Miscellaneous (Iv Fluids Completed) 1 ea PRN PRN N/A 02/21/17 23:00 02/21/18 22:59 Miscellaneous Information (Consult Glycemic Management Pharmacy) 1 ea DAILY PRN N/A 02/22/17 02:19 03/24/17 02:18 Glucose (Glucose 40% Gel) 15-30 GRAMS 15 GRAMS... UD PRN PO 02/22/17 02:30 03/24/17 02:29 Glucose (Glucose Chew Tab) 4-8 Tablets 4 Tabl... UD PRN PO 02/22/17 02:30 03/24/17 02:29 Dextrose (Dextrose 50% 50ML Syringe) 25-50ML OF 50% DW IV FOR... UD PRN IV 02/22/17 02:30 03/24/17 02:29 Glucagon (Glucagon Inj) 1 mg UD PRN SQ 02/22/17 02:30 03/24/17 02:29 Insulin Aspart (novoLOG ASPART) SLIDING SCALE ACHS SC 02/22/17 07:00 03/24/17 06:59 02/22/17 08:03 7 UNITS Insulin Glargine (Lantus Solostar Pen) 15 units BID SC 02/22/17 21:00 03/24/17 20:59 Objective Vital Signs Date Time Temp Pulse Resp B/P (MAP) Pulse Ox O2 Delivery O2 Flow Rate FiO2 02/22/17 08:05 Room Air 02/22/17 06:56 36.4 67 18 182/93 (122) 98 Room Air 02/22/17 04:15 Room Air 02/22/17 03:26 36.5 68 20 167/94 (118) 95 Room Air 02/22/17 00:10 96 Room Air 02/22/17 00:10 Room Air 02/21/17 23:07 36.6 18 167/90 (115) 79 Room Air 02/21/17 22:37 36.5 81 20 175/114 93 Room Air 02/21/17 22:28 79 21 177/104 95 02/21/17 21:06 86 16 94 02/21/17 21:01 163/128 02/21/17 20:39 111 155/96 02/21/17 20:36 111 18 95 02/21/17 20:31 155/96 02/21/17 20:30 114 19 02/21/17 20:00 107 16 177/107 02/21/17 19:36 108 02/21/17 19:35 108 18 155/84 98 Room Air 02/21/17 18:48 36.4 104 20 187/107 98 Room Air 02/21/17 18:48 98 Room Air 02/21/17 18:48 98 Room Air Physical Exam General Appearance: no apparent distress Eyes: normal inspection, sclerae normal Neck: supple Respiratory/Chest: normal breath sounds, no respiratory distress, + crackles ( bilateral lung bases) Cardiovascular: regular rate, rhythm Abdomen: normal bowel sounds, non tender, soft Extremities: + calf tenderness (bilateral), + pedal edema (1+ bilateral PE and pretibial edema), + pertinent finding (venous stasis skin changes) Neurologic/Psychiatric: alert, oriented x 3 Laboratory Results 02/21/17 18:42 Red Blood Count 4.91, Mean Corpuscular Volume 88.8, Mean Corpuscular Hemoglobin 28.7, Mean Corpuscular Hemoglobin Concent 32.3, Mean Platelet Volume 9.8, Neutrophils (%) (Auto) 61.7, Lymphocytes (%) (Auto) 26.0, Monocytes (%) (Auto) 7.2, Eosinophils (%) (Auto) 4.5, Basophils (%) (Auto) 0.3, Neutrophils # (Auto) 3.71, Lymphocytes # (Auto) 1.56, Monocytes # (Auto) 0.43, Eosinophils # (Auto) 0.27, Basophils # (Auto) 0.02 02/21/17 18:42 Test 02/21/17 18:42 02/21/17 19:28 02/21/17 19:47 02/22/17 03:27 White Blood Count 6.01 K/uL (4.8-10.8) Red Blood Count 4.91 M/uL (4.7-6.1) Hemoglobin 14.1 g/dL (14.0-18.0) Hematocrit 43.6 % (42-52) Mean Corpuscular Volume 88.8 fL (80-100) Mean Corpuscular Hemoglobin 28.7 pg (25-34) Mean Corpuscular Hemoglobin Concent 32.3 g/dl (32-36) Platelet Count 193 K/uL (130-400) Mean Platelet Volume 9.8 fL (7.4-10.4) Neutrophils (%) (Auto) 61.7 % Lymphocytes (%) (Auto) 26.0 % Monocytes (%) (Auto) 7.2 % Eosinophils (%) (Auto) 4.5 % Basophils (%) (Auto) 0.3 % Neutrophils # (Auto) 3.71 K/uL (1.4-6.5) Lymphocytes # (Auto) 1.56 K/uL (1.2-3.4) Monocytes # (Auto) 0.43 K/uL (0.11-0.59) Eosinophils # (Auto) 0.27 K/uL (0-0.5) Basophils # (Auto) 0.02 K/uL (0-0.2) RDW Standard Deviation 42.9 fL (36.4-46.3) RDW Coefficient of Variation 13.2 % (11.5-14.5) Immature Granulocyte % (Auto) 0.3 % Immature Granulocyte # (Auto) 0.02 K/uL (0.00-0.02) Anion Gap 6.0 mmol/L (3-11) Est Creatinine Clear Calc Drug Dose 77.7 ml/min Estimated GFR () 67.3 Estimated GFR (Non- 58.1 BUN/Creatinine Ratio 15.5 (10-20) Calcium Level 9.3 mg/dl (8.5-10.1) Total Bilirubin 0.2 mg/dl (0.2-1) Direct Bilirubin mg/dl (0-0.2) Aspartate Amino Transf (AST/SGOT) 20 U/L (15-37) Alanine Aminotransferase (ALT/SGPT) 30 U/L (12-78) Alkaline Phosphatase 131 U/L (45-117) Total Creatine Kinase 105 U/L (39-308) Creatine Kinase MB 2.3 ng/ml (0.5-3.6) Creatine Kinase MB Ratio 2.2 (0-3.0) Total Protein 7.7 gm/dl (6.4-8.2) Albumin 3.5 gm/dl (3.4-5.0) Lipase 240 U/L (73-393) Chemistry Specimen Hemolysis Bedside Troponin I 0.060 ng/ml (0-0.045) Prothrombin Time 10.1 SECONDS (9.0-12.0) Prothromb Time International Ratio 0.9 (0.9-1.1) Activated Partial Thromboplast Time 27.5 SECONDS (21.0-31.0) Partial Thromboplastin Ratio 1.1 Troponin I < 0.015 ng/ml (0-0.045) Test 02/22/17 06:26 02/22/17 10:23 Bedside Glucose 195 mg/dl (70-99) Assessment and Plan 62 yo M w/ hx of HTN with concentric LVH, Diabetes, GERD on prilosec, parkinson' s, gout, antiphospholipid syndrome with hx of DVT, and PE s/p IVC filter, on chronic anticoagulation with lovenox who presented with chest pain. This AM reports having abdominal bloating despite passing gas and having a BM, rash and being dizzy which is why he came to the hospital. CP and sob are mild and at baseline. Abdominal pn has improved this AM but he remains dizzy and still has the petechial rash. Dizziness with baseline sob and CP Given chest pain, ischemic work up completed and ruled out an acute OH. Chest pain and sob likely from chronic pulmonary emboli. An acute PE is also likely given anti-phospholipid syndrome despite adequate anticoagulation with lovenox and IVC filter given hx of IVC thrombosis and treatment failure. Other possible differentials include diastolic CHF from chronic thromboembolic pulmonary hypertension especially given report of starting CPAP recently for sleep apnea. Acute pulmonary etiology such as pneumonia also considered but ruled out by a chest x-ray. -troponins neg and EKG unremarkable -Recent: Echo 01/04/17 revealed mild concentric LVH. Normal LV function. LVEF 60 -65%. -CXR negative -ECHO ordered to evaluate R sided heart pressures -Lasix 40mg as an indirect diagnostic approach to see if lowers BP significantly and increases Cr which could confirm suspicion of diastolic CHF/ chronic thromboembolic pulm HTN Headache/Neck pain -Tylenol PRN -Voltaren gel 1% - apply to L side of neck TID Hx antiphospholipid syndrome and PE -Has IVC filter -Reports taking Lovenox as prescribed at home -Will continue on home Lovenox -Anti-Xa factor: 1.96 (high - pharmacy concerned and asked to lower dose but given cp and suspicion of PE despite treatment will hold off as no clinical evidence of bleeding at this time) -Pharmacy recommended checking a Lovenox trough and if >0.5 then possibly discussing case with Dr. Arguello Diabetes -Pt takes Lantus 30 units SQ BID -Glycemic consult was placed -Lantus 30 units QAM -Novolog SC: CF 20 and CHO ratio 1:6 GERD -Continue protonix Parkinson's Disease -Continue home: Amantadine, and Sinemet DVT Prophylaxis -Adequate on Lovenox Full code Dispo: pending clinical improvement and diagnostic work-up Resident Physician Supervision Note: I interviewed and examined the patient. Discussed with Dr. Gabriel and agree with findings and plan as documented in the note. Any exceptions or clarifications are listed here: None Documented By: Aramis Lynch dizziness and bloating. swelling is about the same. MEDRANO (+), (+) L sided neck pain relates to being in hospital etc but really bothering him all other ROS otherwise negative except for as above vitals noted nad breathing unlabored no pallor or icterus. EKG sinus tachy no ischemic changes. L sided Cspine paraspinals high tone/tender/decreased ROM - unwinding and gentle myofascial - improved, pt tolerated well and noted improvmenet in pain too MEDRANO/dizzy/abdominal bloating -biggest dx of exclusion would be R sided CHF/pulmonary HTN related -- difficult to clearly elucidate -- last echo did not see R sided structures/ valves/etc well --> repeat echo w attempt to see R side and pulmonary pressures. -empiric lasix -- if creatinine rises disproportionately and BP drops disproportionately would fit w R sided pathology, if improves would fit with more "atypical L sided" pathology. if ongoing diagnostic confusion can consider cardiology consult for R heart cath -corroborating -- just got dx of YANN and just got CPAP - which in addition to PE's could certainly add to pulmonary HTN -check overnight pulse ox - may also be able ot get benefit bleeding O2 into CPAP if can get it set up -doubt new PE given compliance w lovenox, anti Xa levels suggesting actually dosing a bit high (continue to follow in conjunction w pharmacy in this respect) neck pain / cervical somatic dysfunction - OMT as above, improved nicely, follow up w voltaren gel tachycardia - likely relates to above pathology, but if so, reducing rates for better filling time and alpha vanna to promote forward flow would be of benefit - start coreg, titrate as tolerated otherwise as above Resident Involvement: Resident Care Provided Care Provided: Adult [facility] Medicine
[2017-02-22] MEDS ORDERED: FUROSEMIDE 40 MG/4 ML VIAL IV STA (15:39)
[2017-02-22] MEDS ORDERED: FUROSEMIDE INJ 40 MG in SYRINGE 0 ML IV ONE (16:30)
[2017-02-22] MEDS ORDERED: NURSING VERBAL MED ORDER ONE (16:45)
[2017-02-22] MEDS: DICLOFENAC SOD 1% GEL 100 GM TUBE EXT SCH ×2 (17:05→20:56)
[2017-02-22] MEDS: INSULIN GLARGINE SOLOSTAR 100 UNITS/ML 3 ML PEN SC SCH (17:32)
[2017-02-22] MEDS ORDERED: CARVEDILOL 3.125 MG TAB PO ONE (18:45)
[2017-02-22] MEDS ORDERED: OXYCODONE/ACETAMINOPHEN 5-325 TAB PO STA (19:27)
[2017-02-22] MEDS ORDERED: OXYCODONE/ACETAMINOPHEN 5-325 TAB ONE (19:53)
[2017-02-23] VITALS (9 sets, daily range): BP systolic 112–143; BP diastolic 68–82; PULSE 52–90; TEMP 36.4–36.8; O2SAT 93–98
[2017-02-23] MEDS: CARVEDILOL 3.125 MG TAB PO SCH ×3 (00:01→20:57)
[2017-02-23 07:43] LABS: BUN/CREATININE RATIO 15.2 (10-20); CALCIUM 8.6 mg/dl (8.5-10.1); CREATININE 1.2 mg/dl (0.60-1.40)
[2017-02-23 07:46] LABS: CHOLESTEROL/HDL RATIO 4.1
[2017-02-23] MEDS: AVODART~ORDER AWAITING ACTION SCH ×3 (08:00→17:00)
[2017-02-23] MEDS ORDERED: PERFLUTREN LIPID MICROSPHERE (DEFINITY) IV ONE (09:08)
[2017-02-23] MEDS: MIRABEGRON ER 25 MG TAB PO SCH (09:18)
[2017-02-23] MEDS: CARBIDOPA/LEVODOPA 50/200MG EXT REL TAB PO SCH ×2 (09:18→20:57)
[2017-02-23] MEDS: AMANTADINE HCL 100 MG CAP PO SCH ×2 (09:18→20:59)
[2017-02-23] MEDS: PANTOprazole SOD 40 MG TAB PO SCH (09:18)
[2017-02-23] MEDS: ISOSORBIDE MONONITRATE 30 MG TABCR PO SCH (09:18)
[2017-02-23] MEDS: ALLOPURINOL 100 MG TAB PO SCH (09:18)
[2017-02-23] MEDS: TAMSULOSIN HCL 0.4 MG CAP PO SCH (09:19)
[2017-02-23] MEDS: DICLOFENAC SOD 1% GEL 100 GM TUBE EXT SCH ×3 (09:19→20:55)
[2017-02-23] MEDS: FLUOXETINE HCL 20 MG CAP PO SCH (09:20)
[2017-02-23] MEDS: PREGABALIN 150 MG CAP PO SCH ×2 (09:25→20:57)
[2017-02-23] MEDS: ENOXAPARIN 150 MG/1ML SYR SC SCH ×2 (09:26→20:58)
[2017-02-23] MEDS: INSULIN ASPART 100 UNITS/ML 3 ML PEN SC SCH ×4 (09:27→21:03)
[2017-02-23] MEDS: INSULIN GLARGINE SOLOSTAR 100 UNITS/ML 3 ML PEN SC SCH ×2 (09:28→21:04)
--- NOTE | 2017-02-23 10:17 | Pharmacy Progress Note ---
Glycemic Control Progress Note Date of Service Feb 23, 2017. Scope Glycemic Pharmacist consulted for glycemic control to write orders per [facility] inpatient glycemic control protocol. Objective Accuchecks BSG (last 24hrs): Test 02/22/17 11:24 02/22/17 16:16 02/22/17 19:54 02/23/17 06:14 Bedside Glucose 249 mg/dl (70-99) 223 mg/dl (70-99) 235 mg/dl (70-99) Random Glucose 183 mg/dl (70-99) Test 02/23/17 07:04 Bedside Glucose 194 mg/dl (70-99) Recent Pertinent Medications The patient is currently receiving: * Basal insulin: Lantus 30 yesterday morning and then 22 units yesterday evening * Correctional Insulin: Novolog Correction per scale ACHS Goal Range: Low 110 mg/dL - High 140 mg/dL Correction Factor: 20 mg/dL/unit * Prandial insulin: Per carb ratio of 1 unit per 6 grams CHO consumed Outpatient Anti-Diabetic Meds Lantus 30 units SQ BID Novolog per sliding scale Assessment & Plan ASSESSMENT: * See progress note from 02/22/17 for more background info, in short: * Pt receiving SQ basal bolus insulin regimen for hyperglycemia secondary to baseline DM (outpatient regimen on hold). * Patient is currently receiving an average of 99 units of insulin per day * 52 units of basal insulin * 47 units of prandial/correctional insulin * BSGs ranging 195 - 254 mg/dl over the past 24hrs * Changes needed to insulin regimen: * AM Fasting BSG = 194 mg/dl. This is in slightly above goal range for patient based on inpatient targets and co-morbidities. However, the patient's blood sugars have trended downwards throughout the night into the morning. Continue Lantus 22 units twice daily (weight-based stress of 2 dosing as well as a 25% reduction from home dose). Downwards trend is very promising and indicates that this dose of Lantus may be sufficient. * Post-prandial BSGs are elevated and do not appear to trend downwards. Slightly both parameters lightly. * Total daily dose = ~90 units. This dosing is yielding adequate glycemic control currently -- may require closer to 100 units/day PLAN FOR INPATIENT GLYCEMIC CONTROL: * STARTING Lantus 22 units SQ BID * TIGHTEN correction factor to 15 mg/dl/unit * TIGHTEN carb ratio to 1 unit per 5 grams CHO consumed * Continuing goal range to Low 110 mg/dL - High 140 mg/dL RECOMMENDATIONS FOR DISCHARGE: * Patient's HbA1C indicates adequate control as an outpatient. As long as patient does not suffer from hypoglycemia may continue home regimen. Thank you.
--- NOTE | 2017-02-23 12:36 | ECHOCARDIOGRAM REPORT ---
*NOTICE TO RECEIVING CONSTITUTION PARTY AGENCY This information is strictly Confidential and protected under [place] law. [place] law prohibits you from making any further disclosure of this information unless further disclosure is expressly permitted by the written consent of the person to whom it pertains or is authorized by law. A general authorization for the release of medical or other information is not sufficient for this purpose. Hospital accepts no responsibility if the information is made available to any other person, INCLUDING THE PATIENT. Interpretation Summary * Name: GARY SCHWAB Study Date: 02/23/2017 08:00 AM BP: 143/77 mmHg * Patient Location: C.2T\S\S239\S\2 HR: 67 * : 1955 (M/d/yyyy) Gender: Male Height: 69 in * Age: 62 yrs Ethnicity: [place] Weight: 284 lb * Ordering Physician: Aramis Lynch * Referring Physician: Self, Referred * Performed By: Pam Cordero RDCS * * Reason For Study: CHF * BSA: 2.4 m2 * -- Conclusions -- * There is mild concentric left ventricular hypertrophy. * Left ventricular systolic function is normal. * Grade I diastolic dysfunction, (abnormal relaxation pattern). * TAPSE suggests normal RV function but 2D images suggest some reduced RV systolic function. * Compared to a study performed on 01/03/2017, there is no notable difference Procedure Details * A contrast injection of Definity was performed to improve assessment of LV function. * Contrast was injected into an intravenous site in the left arm. * One vial of Definity ultrasound contrast was diluted in normal saline to a total volume of 10 ml. A total of '3' ml of solution was administered during imaging. * Lot # [id number] of Definity utilized for procedure. * Expiration date APR 01. * The attending nurse who injected the contrast agent was NOLAN HENNESSY RN. Left Ventricle * The left ventricle is normal in size. * There is mild concentric left ventricular hypertrophy. * Ejection Fraction = 55-60%. * Left ventricular systolic function is normal. * Grade I diastolic dysfunction, (abnormal relaxation pattern). * The left ventricular wall motion is normal. Right Ventricle * The right ventricle is not well visualized. * TAPSE suggests normal RV function but 2D images suggest some reduced RV systolic function. Atria * The left atrial size is normal. * Right atrial size is normal. Mitral Valve * The mitral valve is grossly normal. * Significant mitral regurgitation is absent. Tricuspid Valve * The tricuspid valve is not well visualized, but is grossly normal. * Significant tricuspid regurgitation is absent. Aortic Valve * The aortic valve is normal in structure and function. * No hemodynamically significant valvular aortic stenosis. * No aortic regurgitation is present. Great Vessels * The aortic root is normal size. Pericardium/Pleural * The pericardium appears normal. MMode 2D Measurements and Calculations IVSd 1.3 cm IVSs 1.9 cm LVIDd 4.4 cm LVIDs 3.2 cm LVPWd 1.2 cm LVPWs 1.3 cm IVS/LVPW 1.1 FS 26.5 % EDV(Teich) 86.7 ml ESV(Teich) 41.5 ml EF(Teich) 52.2 % EDV(cubed) 84.0 ml ESV(cubed) 33.3 ml EF(cubed) 60.4 % % IVS thick 40.4 % % LVPW thick 8.9 % LV mass(C)d 207.9 grams LV mass(C)dI 86.7 grams/m\S\2 LV mass(C)s 192.5 grams LV mass(C)sI 80.3 grams/m\S\2 SV(Teich) 45.2 ml SI(Teich) 18.9 ml/m\S\2 SV(cubed) 50.7 ml SI(cubed) 21.2 ml/m\S\2 Ao root diam 3.0 cm Ao root area 6.9 cm\S\2 LA dimension 3.7 cm LA/Ao 1.3 LVAd ap4 25.4 cm\S\2 LVLd ap4 7.0 cm EDV(MOD-sp4) 75.2 ml EDV(sp4-el) 78.9 ml LVAs ap4 15.7 cm\S\2 LVLs ap4 6.6 cm ESV(MOD-sp4) 29.6 ml ESV(sp4-el) 31.3 ml EF(MOD-sp4) 60.6 % EF(sp4-el) 60.3 % SV(MOD-sp4) 45.5 ml SI(MOD-sp4) 19.0 ml/m\S\2 SV(sp4-el) 47.6 ml SI(sp4-el) 19.9 ml/m\S\2 Doppler Measurements and Calculations MV E max janine 52.9 cm/sec MV A max janine 65.0 cm/sec MV E/A 0.81 MV dec time 0.27 sec Ao V2 max 107.4 cm/sec Ao max PG 4.6 mmHg Ao max PG (full) 2.0 mmHg LV V1 max PG 2.7 mmHg LV V1 max 81.5 cm/sec
--- NOTE | 2017-02-23 15:54 | Family Medicine Progress Note ---
Progress Note Date of Service Feb 23, 2017. Subjective Pt evaluation today including: conversation w/ patient, physical exam, chart review, lab review, review of studies Pt states his chest pain feels improved from his baseline, but not completely resolved. SOB also seems at baseline with some phlegm in the mornings and that he will get a little winded with walking to the bathroom, though that's his baseline (for at least past few months). Denies any SOB at rest at present. Says his right forearm rash may have spread a little bit since yesterday but remains non-tender, not painful (but more "irritating"), not itchy, and denies hx of same or similar rash elsewhere than (B) forearms. Had a BM yesterday, hard stool, and says he still feels a bit bloated. Ongoing neck soreness, says voltaren gel may not be helping but percocet did. Constitutional: No fever, No chills Respiratory: + cough, + shortness of breath, + dyspnea on exertion Cardiovascular: + chest pain Abdomen: + constipation, No pain, No nausea, No vomiting, No diarrhea Medications Current Inpatient Medications Medications (Trade) Dose Ordered Sig/Apryl Route Start Time Stop Time Status Last Admin Dose Admin Acetaminophen (Tylenol Tab) 650 mg Q4H PRN PO 02/21/17 21:30 03/23/17 21:29 Al Hydrox/Mg Hydrox/Simethicone (Maalox Max Susp) 15 ml Q4H PRN PO 02/21/17 21:30 03/23/17 21:29 Magnesium Hydroxide (Milk Of Magnesia Susp) 30 ml Q12H PRN PO 02/21/17 21:30 03/23/17 21:29 Ondansetron HCl (Zofran Inj) 4 mg Q6H PRN IV 02/21/17 21:30 03/23/17 21:29 02/22/17 21:58 4 MG Nitroglycerin (Nitrostat Tab) 0.4 mg UD PRN SL 02/21/17 21:30 03/23/17 21:29 Morphine Sulfate (MoRPHine SULFATE INJ) 2 mg Q30M PRN IV 02/21/17 21:30 03/07/17 21:29 Polyethylene (Miralax Powder Packet) 17 gm DAILY PRN PO 02/21/17 21:30 03/23/17 21:29 Allopurinol (Zyloprim Tab) 100 mg DAILY PO 02/22/17 09:00 03/24/17 08:59 02/23/17 09:18 100 MG Amantadine HCl (Symmetrel Cap) 100 mg BID PO 02/22/17 09:00 03/24/17 08:59 02/23/17 09:18 100 MG Carbidopa/Levodopa (Sinemet Cr 50/ 200MG Tab) 1 tab BID PO 02/22/17 09:00 03/24/17 08:59 02/23/17 09:18 1 TAB Colchicine (Colchicine Tab) 0.6 mg DAILY PRN PO 02/21/17 21:30 03/23/17 21:29 Enoxaparin Sodium (Lovenox Inj) 150 mg Q12 SC 02/22/17 09:00 03/24/17 08:59 02/23/17 09:26 150 MG Fluoxetine HCl (Prozac Cap) 40 mg DAILY PO 02/22/17 09:00 03/24/17 08:59 02/23/17 09:20 40 MG Isosorbide Mononitrate (Imdur Ext Rel Tab) 30 mg QAM PO 02/22/17 09:00 03/24/17 08:59 02/23/17 09:18 30 MG Mirabegron (Myrbetriq Er) 50 mg DAILY PO 02/22/17 09:00 03/24/17 08:59 02/23/17 09:18 50 MG Pregabalin (Lyrica Cap) 300 mg BID PO 02/22/17 09:00 03/24/17 08:59 02/23/17 09:25 300 MG Simvastatin (Zocor Tab) 20 mg QPM PO 02/22/17 21:00 03/24/17 20:59 02/22/17 07:56 20 MG Tamsulosin HCl (Flomax Cap) 0.4 mg DAILY PO 02/22/17 09:00 03/24/17 08:59 02/23/17 09:19 0.4 MG Zolpidem Tartrate (Ambien Tab) 10 mg HS PRN PO 02/21/17 21:30 03/23/17 21:29 Miscellaneous Information (Order Awaiting Action) 1 ea QS N/A 02/22/17 00:00 03/24/17 00:00 Pantoprazole Sodium (Protonix Tab) 40 mg QAM PO 02/22/17 09:00 03/24/17 08:59 02/23/17 09:18 40 MG Miscellaneous (Iv Fluids Completed) 1 ea PRN PRN N/A 02/21/17 23:00 02/21/18 22:59 Miscellaneous Information (Consult Glycemic Management Pharmacy) 1 ea DAILY PRN N/A 02/22/17 02:19 03/24/17 02:18 Glucose (Glucose 40% Gel) 15-30 GRAMS 15 GRAMS... UD PRN PO 02/22/17 02:30 03/24/17 02:29 Glucose (Glucose Chew Tab) 4-8 Tablets 4 Tabl... UD PRN PO 02/22/17 02:30 03/24/17 02:29 Dextrose (Dextrose 50% 50ML Syringe) 25-50ML OF 50% DW IV FOR... UD PRN IV 02/22/17 02:30 03/24/17 02:29 Glucagon (Glucagon Inj) 1 mg UD PRN SQ 02/22/17 02:30 03/24/17 02:29 Insulin Aspart (novoLOG ASPART) SLIDING SCALE ACHS SC 02/22/17 07:00 03/24/17 06:59 02/23/17 12:44 17 UNITS Diclofenac Sodium (Voltaren 1% Top Gel) 1 appln TID EXT 02/22/17 21:00 03/24/17 20:59 02/23/17 09:19 1 APPLN Carvedilol (Coreg Tab) 3.125 mg BID PO 02/22/17 23:00 03/24/17 22:59 02/23/17 09:20 3.125 MG Insulin Aspart (novoLOG ASPART) SLIDING SCALE TODAY@0200 SC 02/24/17 02:00 02/24/17 02:01 Insulin Glargine (Lantus Solostar Pen) SEE PROTOCOL BID SC 02/23/17 21:00 03/25/17 20:59 Objective Vital Signs Date Time Temp Pulse Resp B/P (MAP) Pulse Ox O2 Delivery O2 Flow Rate FiO2 02/23/17 15:03 36.4 76 18 134/76 (95) 93 Room Air 02/23/17 12:00 Room Air 02/23/17 11:37 36.4 68 18 126/71 (89) 97 Room Air 02/23/17 08:00 Room Air 02/23/17 06:50 36.5 67 19 143/77 (99) 94 Room Air 02/23/17 06:13 90 16 93 Room Air 02/23/17 04:00 Room Air 02/23/17 03:10 36.8 52 16 112/68 (83) 95 Room Air 02/23/17 00:01 Room Air 02/22/17 23:30 36.5 80 16 135/72 (93) 94 Room Air 02/22/17 20:00 Room Air 02/22/17 18:56 36.4 99 19 138/83 (101) 96 Room Air 02/22/17 16:02 Room Air Physical Exam General Appearance: no apparent distress Neck: supple (no reproducibility of neck sx with midline or para-cervical palpation. no midline ttp or stepoffs.) Respiratory/Chest: lungs clear, normal breath sounds, no respiratory distress Cardiovascular: regular rate, rhythm, + pertinent finding (1+ bilateral lower extremity edema) Abdomen: normal bowel sounds, non tender (non-distended), soft Skin: + rash (Multiple 1-2 mm erythematous papular lesions on (B) inner forearms) Notes: - (B) forearm rash without any focal ttp, swelling, breaks in skin, or erythema surrounding the papules. - Grossly normal (B) wrist and elbow ROM without pain or difficulty. Laboratory Results 02/23/17 06:14 Test 02/23/17 06:14 02/23/17 11:09 Anion Gap 6.0 mmol/L (3-11) Est Creatinine Clear Calc Drug Dose 83.7 ml/min Estimated GFR () 74.1 Estimated GFR (Non- 64.0 BUN/Creatinine Ratio 15.2 (10-20) Calcium Level 8.6 mg/dl (8.5-10.1) Triglycerides Level 164 mg/dl (0-150) Cholesterol Level 161 mg/dl (0-200) HDL Cholesterol 39 mg/dl LDL Cholesterol, Calculated 89 mg/dl VLDL Cholesterol, Calculated 33 mg/dl Cholesterol/HDL Ratio 4.1 Bedside Glucose 252 mg/dl (70-99) Assessment and Plan 62yo male presented/admitted via ED on 09Sep with chest pain, SOB, and arm rash. Chest pain: ED EKG non-ischemic, TnI x3 negative, portable CXR clear, repeat cardiac echo on 11Sep read as unchanged from December 2016 study. - After clarification with pt, his mild CP and SOB is his baseline. Not pts primary concern during this hospitalization. - 11Sep: Wrote order to transfer off telemetry. SOB, hx PE and antiphospholipid syndrome: Prior hx of PE, IVC filter and thrombosis of same, on chronic lovenox. After clarification with pt, his mild CP and SOB is his baseline. Chronic pulmonary emboli likely contributing. pCXR here was clear. Repeat cardiac echo on 11Sep read as unchanged from December 2016 study. Single dose Lasix given 10Sep for possible sx relief. Unclear if it changed sx, as pt states he's at his baseline now. - Considering diastolic CHF vs chronic thromboembolic pulmonary HTN, given recent start of home CPAP for sleep apnea. - Report of pharmacy concerned about too-high of a lovenox dose. - Pharmacy recommended checking a Lovenox trough and if > 0.5 then possibly discussing case with Dr. Arguello. [ ] Consult to PT and OT to see about help with conditioning (pt says he gets exhausted with short walks). Pt says he's amenable to eventual d/c to rehab. Arm rash: Noted during ED evaluation. Pt stated on 11Sep that he's "not worried about it" anymore. Source of rash is unclear, though it does not have obvious infectious, allergic, or petechial components to it. - Will monitor while inpt, can f/u with PCM about it upon eventual d/c. Abdominal bloating: Noted during ED evaluation. Has had some BM here, though a bit constipated. - Pt reports improvement. Will monitor. Headache / Neck pain: Noted during inpt stay. - Sx tx with Tylenol prn and voltaren gel topical tid. - Added Percocet overnight 10-11Sep. PMH Dizziness: Pt says sx are at his 'normal' over the past 13 or so years, worse with sudden movements, will seem to slowly self-resolve. - Will monitor for acute sx changes or worsening, can f/u with PCM about it upon eventual d/c. PMH HTN: Elevated on admission. - Coreg as inpt. - Also Zocor 20 mg. PMH GERD: - On home protonix. PMH Diabetes Mellitus: - Glycemic consult, orders per pharmacy (greatly appreciated). PMH Parkinson Disease: Hx of same. - On home amantadine, Sinemet. DVT prophy: Lovenox Code status: Full code Discussed all the above on attending rounds this morning. Johnathan, PGY1 Senior Advisor Tracking Resident Involvement: Resident Care Provided Care Provided: Adult Hospital Medicine (inpt rounds) History Resident Physician Supervision Note: I was present with Dr. Zimmer during the history and exam. I discussed the case with the resident and agree with the findings and plan as documented in the note. Any exceptions or clarifications are listed here. Pt reports persistent fatigue with minimal activity which is not associated with shortness of breath and has been present consistently for at least six months and has improved temporarily with PT in the past. At present he feels that hsi shortness of breath is at baseline and has not exacerbated with laying flat or walking. B/L forearm rash is slightly worse on the right but nonpainful , nonitchy and isolated to the flexor surface. General Appearance: no apparent distress, obese Respiratory: chest non-tender, lungs clear, normal breath sounds, no respiratory distress Cardiovascular: normal peripheral pulses, regular rate, rhythm, no murmur, other (trace LE edema to the b/l midshin) Skin Characteristics: rash (b/l flexor surface of the forearms with papular blanching erythematous rash) Assessment/Plan 62 y/o male h/o Parkinson's dz, APL, DMII, HTN p/w chest pain, SOB, fatigue and rash Chest pain - no pain at time of examination, echo unchanged from previous - transfer off telemetry SOB/fatigue - SOB at baseline per patient, fatigue constant and improved w/ PT in the past - PT evaluation for this admission, lovenox trough w/ dosing adjustment per hematology recommendations Arm rash - serial examination Headache - continue voltaren w/ percocet for breakthrough pain HTN - continue coreg DMII - glycemic consult, continue simvastatin Parkinson's - continue amantadine and sinemet
[2017-02-23] MEDS: SIMVASTATIN 20 MG TAB PO SCH (20:58)
[2017-02-23] MEDS ORDERED: INSULIN GLARGINE SOLOSTAR 100 UNITS/ML 3 ML PEN SC SCH (21:00)
[2017-02-24] MEDS ORDERED: INSULIN ASPART 100 UNITS/ML 3 ML PEN SC SCH (02:00)
[2017-02-24 07:23] VITALS: BP 148/83; PULSE 68; TEMP 36.9; O2SAT 96
[2017-02-24] MEDS: AVODART~ORDER AWAITING ACTION SCH ×4 (07:40→23:22)
--- NOTE | 2017-02-24 07:43 | Family Medicine Progress Note ---
Progress Note Date of Service Feb 24, 2017. Subjective Pt evaluation today including: conversation w/ patient, physical exam, chart review, lab review Found pt resting comfortably. Says his CP is at his baseline, "comes and goes" . Thinks his breathing has improved a little bit but still SOB on walking the halls here (says at baseline). Thinks his rash may have worsened, but is unsure , but still is asx. No particular overnight events or other acute concerns. Constitutional: No fever, No chills Respiratory: + shortness of breath Cardiovascular: + chest pain, + edema Abdomen: + constipation, No nausea, No vomiting, No diarrhea Skin: + rash Medications Current Inpatient Medications Medications (Trade) Dose Ordered Sig/Apryl Route Start Time Stop Time Status Last Admin Dose Admin Acetaminophen (Tylenol Tab) 650 mg Q4H PRN PO 02/21/17 21:30 03/23/17 21:29 Al Hydrox/Mg Hydrox/Simethicone (Maalox Max Susp) 15 ml Q4H PRN PO 02/21/17 21:30 03/23/17 21:29 Magnesium Hydroxide (Milk Of Magnesia Susp) 30 ml Q12H PRN PO 02/21/17 21:30 03/23/17 21:29 Ondansetron HCl (Zofran Inj) 4 mg Q6H PRN IV 02/21/17 21:30 03/23/17 21:29 02/22/17 21:58 4 MG Nitroglycerin (Nitrostat Tab) 0.4 mg UD PRN SL 02/21/17 21:30 03/23/17 21:29 Morphine Sulfate (MoRPHine SULFATE INJ) 2 mg Q30M PRN IV 02/21/17 21:30 03/07/17 21:29 Polyethylene (Miralax Powder Packet) 17 gm DAILY PRN PO 02/21/17 21:30 03/23/17 21:29 Allopurinol (Zyloprim Tab) 100 mg DAILY PO 02/22/17 09:00 03/24/17 08:59 02/23/17 09:18 100 MG Amantadine HCl (Symmetrel Cap) 100 mg BID PO 02/22/17 09:00 03/24/17 08:59 02/23/17 20:59 100 MG Carbidopa/Levodopa (Sinemet Cr 50/ 200MG Tab) 1 tab BID PO 02/22/17 09:00 03/24/17 08:59 02/23/17 20:57 1 TAB Colchicine (Colchicine Tab) 0.6 mg DAILY PRN PO 02/21/17 21:30 03/23/17 21:29 Enoxaparin Sodium (Lovenox Inj) 150 mg Q12 SC 02/22/17 09:00 03/24/17 08:59 02/23/17 20:58 150 MG Fluoxetine HCl (Prozac Cap) 40 mg DAILY PO 02/22/17 09:00 03/24/17 08:59 02/23/17 09:20 40 MG Isosorbide Mononitrate (Imdur Ext Rel Tab) 30 mg QAM PO 02/22/17 09:00 03/24/17 08:59 02/23/17 09:18 30 MG Mirabegron (Myrbetriq Er) 50 mg DAILY PO 02/22/17 09:00 03/24/17 08:59 02/23/17 09:18 50 MG Pregabalin (Lyrica Cap) 300 mg BID PO 02/22/17 09:00 03/24/17 08:59 02/23/17 20:57 300 MG Simvastatin (Zocor Tab) 20 mg QPM PO 02/22/17 21:00 03/24/17 20:59 02/23/17 20:58 20 MG Tamsulosin HCl (Flomax Cap) 0.4 mg DAILY PO 02/22/17 09:00 03/24/17 08:59 02/23/17 09:19 0.4 MG Zolpidem Tartrate (Ambien Tab) 10 mg HS PRN PO 02/21/17 21:30 03/23/17 21:29 Miscellaneous Information (Order Awaiting Action) 1 ea QS N/A 02/22/17 00:00 03/24/17 00:00 Pantoprazole Sodium (Protonix Tab) 40 mg QAM PO 02/22/17 09:00 03/24/17 08:59 02/23/17 09:18 40 MG Miscellaneous (Iv Fluids Completed) 1 ea PRN PRN N/A 02/21/17 23:00 02/21/18 22:59 Miscellaneous Information (Consult Glycemic Management Pharmacy) 1 ea DAILY PRN N/A 02/22/17 02:19 03/24/17 02:18 Glucose (Glucose 40% Gel) 15-30 GRAMS 15 GRAMS... UD PRN PO 02/22/17 02:30 03/24/17 02:29 Glucose (Glucose Chew Tab) 4-8 Tablets 4 Tabl... UD PRN PO 02/22/17 02:30 03/24/17 02:29 Dextrose (Dextrose 50% 50ML Syringe) 25-50ML OF 50% DW IV FOR... UD PRN IV 02/22/17 02:30 03/24/17 02:29 Glucagon (Glucagon Inj) 1 mg UD PRN SQ 02/22/17 02:30 03/24/17 02:29 Insulin Aspart (novoLOG ASPART) SLIDING SCALE ACHS SC 02/22/17 07:00 03/24/17 06:59 02/23/17 21:03 4 UNITS Diclofenac Sodium (Voltaren 1% Top Gel) 1 appln TID EXT 02/22/17 21:00 03/24/17 20:59 02/23/17 20:55 1 APPLN Carvedilol (Coreg Tab) 3.125 mg BID PO 02/22/17 23:00 03/24/17 22:59 02/23/17 20:57 3.125 MG Insulin Glargine (Lantus Solostar Pen) SEE PROTOCOL BID SC 02/23/17 20:00 03/25/17 20:59 02/23/17 21:04 22 UNITS Objective Vital Signs Date Time Temp Pulse Resp B/P (MAP) Pulse Ox O2 Delivery O2 Flow Rate FiO2 02/24/17 07:23 36.9 68 20 148/83 (104) 96 Room Air 02/24/17 00:00 Room Air 02/23/17 23:59 36.5 81 16 137/82 (100) 96 Room Air 02/23/17 20:56 76 123/79 (94) 02/23/17 16:58 36.4 76 18 93 02/23/17 16:30 98 Room Air 02/23/17 16:30 36.4 76 17 125/75 (92) 98 Room Air 02/23/17 16:00 Room Air 02/23/17 15:03 36.4 76 18 134/76 (95) 93 Room Air 02/23/17 12:00 Room Air 02/23/17 11:37 36.4 68 18 126/71 (89) 97 Room Air 02/23/17 08:00 Room Air Physical Exam General Appearance: no apparent distress Neck: supple Respiratory/Chest: lungs clear, normal breath sounds Cardiovascular: regular rate, rhythm Abdomen: normal bowel sounds, non tender, soft Extremities: + pedal edema (1+ bilaterally) Skin: + rash (bilateral forearm rash unchanged, if not slightly improved in amt of papules, from 11Sep) Laboratory Results Test 02/23/17 20:31 02/24/17 02:59 Heparin Anti-Xa Act, Low Molec Wt 1.38 IU/ML (0 - <0.10) Bedside Glucose 118 mg/dl (70-99) Assessment and Plan 62yo male presented/admitted via ED on 09Sep with chest pain, SOB, and arm rash. Chest pain: ED EKG non-ischemic, TnI x3 negative, portable CXR clear, repeat cardiac echo on 11Sep read as unchanged from December 2016 study. - After clarification with pt, his mild CP and SOB is his baseline. Not pts primary concern during this hospitalization. - 11Sep: Wrote order to transfer off telemetry. SOB, hx PE and antiphospholipid syndrome: Prior hx of PE, IVC filter and thrombosis of same, on chronic lovenox. After clarification with pt, his mild CP and SOB is his baseline. Chronic pulmonary emboli likely contributing. pCXR here was clear. Repeat cardiac echo on 11Sep read as unchanged from December 2016 study. Single dose Lasix given 10Sep for possible sx relief... unclear if it changed sx, as pt states he's at his baseline now. - Considering diastolic CHF vs chronic thromboembolic pulmonary HTN, given recent start of home CPAP for sleep apnea. - Report of pharmacy concerned about too-high of a lovenox dose. Anti X-a rechecked on 11Sep, lower. Will discuss on rounds today. Previously pharmacy recommended checking a Lovenox trough and if > 0.5 then possibly discussing case with Dr. Arguello. [ ] Consult to PT and OT to see about help with conditioning (pt says he gets exhausted with short walks). Pt says he's amenable to eventual d/c to rehab. Arm rash: Noted during ED evaluation. Pt stated on 11Sep that he's "not worried about it" anymore. Source of rash is unclear, though it does not have obvious infectious, allergic, or petechial components to it. Does not appear to be spreading as inpt. . - Will monitor while inpt, can f/u with PCM about it upon eventual d/c. Abdominal bloating: Noted during ED evaluation. Has had some BM here, though a bit constipated. - Pt reports unchanged vs minimal improvement. Will monitor. Headache / Neck pain: Noted during inpt stay. - Sx tx with Tylenol prn and voltaren gel topical tid. - Added Percocet overnight 10-11Sep. PMH Dizziness: Pt says sx are at his 'normal' over the past 13 or so years, worse with sudden movements, will seem to slowly self-resolve. - Will monitor for acute sx changes or worsening, can f/u with PCM about it upon eventual d/c. PMH HTN: Elevated on admission. - Coreg as inpt. - Also Zocor 20 mg. PMH GERD: - On home protonix. PMH Diabetes Mellitus: - Glycemic consult, orders per pharmacy (greatly appreciated). PMH Parkinson Disease: Hx of same. - On home amantadine, Sinemet. DVT prophy: Lovenox Code status: Full code Will discuss all the above on attending rounds this morning. JOE, PGY1 Media Planner Tracking Resident Involvement: Resident Care Provided Care Provided: Adult Hospital Medicine (inpt rounds) History Resident Physician Supervision Note: I was present with Dr. Zimmer during the history and exam. I discussed the case with the resident and agree with the findings and plan as documented in the note. Any exceptions or clarifications are listed here. Pt reports stable fatigue with ambulation which is being described as SOB with exertion which is at its chronic baseline. Chest pain is intermittent, also at baseline. Rash stable from previous. General Appearance: no apparent distress, obese Respiratory: chest non-tender, lungs clear, normal breath sounds, no respiratory distress Cardiovascular: normal peripheral pulses, regular rate, rhythm, no edema, no murmur Gastrointestinal: normal bowel sounds, non tender, soft, no organomegaly Skin Characteristics: normal color, rash (papular rash mildly improved (less lesions on the R FA, decreased erythema)) Assessment/Plan 62 y/o male h/o Parkinson's dz, APL, DMII, HTN p/w chest pain, SOB, fatigue and rash SOB/fatigue - SOB at baseline per patient, fatigue constant and improved w/ PT in the past - PT discharged on initial evaluation, OT recommends further OT Elevated Lovenox level - dosing adjustment (will end w/ rec of 150mg daily) Chest pain - at patient baseline, echo unchanged from previous Arm rash - serial examination with gradual improvement Headache - continue voltaren w/ percocet for breakthrough pain HTN - continue coreg DMII - glycemic consult, continue simvastatin Parkinson's - continue amantadine and sinemet
[2017-02-24 08:00] VITALS: O2SAT 96
[2017-02-24] MEDS: ALLOPURINOL 100 MG TAB PO SCH (08:08)
[2017-02-24] MEDS: PREGABALIN 150 MG CAP PO SCH ×2 (08:08→19:40)
[2017-02-24] MEDS: FLUOXETINE HCL 20 MG CAP PO SCH (08:08)
[2017-02-24] MEDS: ISOSORBIDE MONONITRATE 30 MG TABCR PO SCH (08:08)
[2017-02-24] MEDS: CARBIDOPA/LEVODOPA 50/200MG EXT REL TAB PO SCH ×2 (08:08→19:36)
[2017-02-24] MEDS: MIRABEGRON ER 25 MG TAB PO SCH (08:08)
[2017-02-24] MEDS: AMANTADINE HCL 100 MG CAP PO SCH ×2 (08:09→19:37)
[2017-02-24] MEDS: PANTOprazole SOD 40 MG TAB PO SCH (08:09)
[2017-02-24] MEDS: TAMSULOSIN HCL 0.4 MG CAP PO SCH (08:09)
[2017-02-24] MEDS: CARVEDILOL 3.125 MG TAB PO SCH ×2 (08:09→19:36)
[2017-02-24] MEDS: DICLOFENAC SOD 1% GEL 100 GM TUBE EXT SCH ×3 (08:13→19:35)
[2017-02-24] MEDS: INSULIN ASPART 100 UNITS/ML 3 ML PEN SC SCH ×4 (08:19→21:07)
[2017-02-24] MEDS: INSULIN GLARGINE SOLOSTAR 100 UNITS/ML 3 ML PEN SC SCH ×2 (08:19→21:06)
[2017-02-24] MEDS: ENOXAPARIN 150 MG/1ML SYR SC SCH (08:23)
[2017-02-24 15:04] VITALS: BP 116/74; PULSE 87; TEMP 36.7; O2SAT 94
[2017-02-24 16:00] VITALS: O2SAT 94
[2017-02-24 16:45] VITALS: BP 127/76; PULSE 77; TEMP 36.6; O2SAT 97
[2017-02-24] MEDS: SIMVASTATIN 20 MG TAB PO SCH (19:37)
[2017-02-24 20:19] VITALS: BP 145/86; PULSE 77
[2017-02-25 00:23] VITALS: BP 126/79; PULSE 69; TEMP 36.6; O2SAT 97
--- NOTE | 2017-02-25 05:38 | Family Medicine Progress Note ---
Progress Note Date of Service Feb 25, 2017. Subjective Pt evaluation today including: conversation w/ patient, physical exam, chart review, lab review No acute or overnight pt concerns noted. Said he had a hard stool yesterday, helped with feeling of bloating. Says his present CP and SOB is "at his baseline". Forearm rash seems unchanged, "not bothering me". Is unsure if he did his walking SpO2 testing yesterday, but was walking about without increased- from-baseline difficulty. Constitutional: No fever, No chills Respiratory: + shortness of breath (baseline) Cardiovascular: + chest pain (baseline) Abdomen: No pain, No nausea, No vomiting, No diarrhea Medications Current Inpatient Medications Medications (Trade) Dose Ordered Sig/Apryl Route Start Time Stop Time Status Last Admin Dose Admin Acetaminophen (Tylenol Tab) 650 mg Q4H PRN PO 02/21/17 21:30 03/23/17 21:29 Al Hydrox/Mg Hydrox/Simethicone (Maalox Max Susp) 15 ml Q4H PRN PO 02/21/17 21:30 03/23/17 21:29 Magnesium Hydroxide (Milk Of Magnesia Susp) 30 ml Q12H PRN PO 02/21/17 21:30 03/23/17 21:29 02/24/17 08:28 30 ML Ondansetron HCl (Zofran Inj) 4 mg Q6H PRN IV 02/21/17 21:30 03/23/17 21:29 02/22/17 21:58 4 MG Nitroglycerin (Nitrostat Tab) 0.4 mg UD PRN SL 02/21/17 21:30 03/23/17 21:29 Morphine Sulfate (MoRPHine SULFATE INJ) 2 mg Q30M PRN IV 02/21/17 21:30 03/07/17 21:29 Polyethylene (Miralax Powder Packet) 17 gm DAILY PRN PO 02/21/17 21:30 03/23/17 21:29 Allopurinol (Zyloprim Tab) 100 mg DAILY PO 02/22/17 09:00 03/24/17 08:59 02/24/17 08:08 100 MG Amantadine HCl (Symmetrel Cap) 100 mg BID PO 02/22/17 09:00 03/24/17 08:59 02/24/17 19:37 100 MG Carbidopa/Levodopa (Sinemet Cr 50/ 200MG Tab) 1 tab BID PO 02/22/17 09:00 03/24/17 08:59 02/24/17 19:36 1 TAB Colchicine (Colchicine Tab) 0.6 mg DAILY PRN PO 02/21/17 21:30 03/23/17 21:29 Fluoxetine HCl (Prozac Cap) 40 mg DAILY PO 02/22/17 09:00 03/24/17 08:59 02/24/17 08:08 40 MG Isosorbide Mononitrate (Imdur Ext Rel Tab) 30 mg QAM PO 02/22/17 09:00 03/24/17 08:59 02/24/17 08:08 30 MG Mirabegron (Myrbetriq Er) 50 mg DAILY PO 02/22/17 09:00 03/24/17 08:59 02/24/17 08:08 50 MG Pregabalin (Lyrica Cap) 300 mg BID PO 02/22/17 09:00 03/24/17 08:59 02/24/17 19:40 300 MG Simvastatin (Zocor Tab) 20 mg QPM PO 02/22/17 21:00 03/24/17 20:59 02/24/17 19:37 20 MG Tamsulosin HCl (Flomax Cap) 0.4 mg DAILY PO 02/22/17 09:00 03/24/17 08:59 02/24/17 08:09 0.4 MG Zolpidem Tartrate (Ambien Tab) 10 mg HS PRN PO 02/21/17 21:30 03/23/17 21:29 Miscellaneous Information (Order Awaiting Action) 1 ea QS N/A 02/22/17 00:00 03/24/17 00:00 Pantoprazole Sodium (Protonix Tab) 40 mg QAM PO 02/22/17 09:00 03/24/17 08:59 02/24/17 08:09 40 MG Miscellaneous (Iv Fluids Completed) 1 ea PRN PRN N/A 02/21/17 23:00 02/21/18 22:59 Miscellaneous Information (Consult Glycemic Management Pharmacy) 1 ea DAILY PRN N/A 02/22/17 02:19 03/24/17 02:18 Glucose (Glucose 40% Gel) 15-30 GRAMS 15 GRAMS... UD PRN PO 02/22/17 02:30 03/24/17 02:29 Glucose (Glucose Chew Tab) 4-8 Tablets 4 Tabl... UD PRN PO 02/22/17 02:30 03/24/17 02:29 Dextrose (Dextrose 50% 50ML Syringe) 25-50ML OF 50% DW IV FOR... UD PRN IV 02/22/17 02:30 03/24/17 02:29 Glucagon (Glucagon Inj) 1 mg UD PRN SQ 02/22/17 02:30 03/24/17 02:29 Insulin Aspart (novoLOG ASPART) SLIDING SCALE ACHS SC 02/22/17 07:00 03/24/17 06:59 02/24/17 21:07 5 UNITS Diclofenac Sodium (Voltaren 1% Top Gel) 1 appln TID EXT 02/22/17 21:00 03/24/17 20:59 02/24/17 19:35 1 APPLN Carvedilol (Coreg Tab) 3.125 mg BID PO 02/22/17 23:00 03/24/17 22:59 02/24/17 19:36 3.125 MG Insulin Glargine (Lantus Solostar Pen) SEE PROTOCOL BID SC 02/23/17 20:00 03/25/17 20:59 02/24/17 21:06 22 UNITS Enoxaparin Sodium (Lovenox Inj) 120 mg Q12 SC 02/25/17 09:00 03/27/17 08:59 Objective Vital Signs Date Time Temp Pulse Resp B/P (MAP) Pulse Ox O2 Delivery O2 Flow Rate FiO2 02/25/17 07:13 36.3 68 18 182/84 (116) 99 Room Air 02/25/17 00:23 36.6 69 16 126/79 (95) 97 Room Air 02/25/17 00:00 Room Air 02/24/17 20:19 77 145/86 (105) 02/24/17 16:45 36.6 77 20 127/76 (93) 97 Room Air 02/24/17 16:00 94 Room Air 02/24/17 15:04 36.7 87 20 116/74 (88) 94 Physical Exam General Appearance: no apparent distress Respiratory/Chest: lungs clear, normal breath sounds, no respiratory distress Cardiovascular: regular rate, rhythm, no murmur Abdomen: normal bowel sounds, non tender, soft Extremities: + pedal edema (1+ bilaterally) Skin: + rash ((B) forearm rash unchanged, if not slightly improved, from prior exams) Laboratory Results Test 02/24/17 20:25 Bedside Glucose 201 mg/dl (70-99) Assessment and Plan 62yo male presented/admitted via ED on 09Sep with chest pain, SOB, and arm rash. Chest pain: ED EKG non-ischemic, TnI x3 negative, portable CXR clear, repeat cardiac echo on Se read as unchanged from December 2016 study. - After clarification with pt, his mild CP and SOB is his baseline. Not pts primary concern during this hospitalization. - 11Sep: Wrote order to transfer off telemetry. SOB, hx PE and antiphospholipid syndrome: Prior hx of PE, IVC filter and thrombosis of same, on chronic lovenox. After clarification with pt, his mild CP and SOB is his baseline. Chronic pulmonary emboli likely contributing. pCXR here was clear. Repeat cardiac echo on Se read as unchanged from December 2016 study. Single dose Lasix given 10Sep for possible sx relief... unclear if it changed sx, as pt states he's at his baseline now. PT consulted and discharged off case on initial evaluation. OT recommended further OT. Pt states hes amenable to rehab upon d/c. - After checking peak and trough levels of Anti X-a and consultation with pharmacy (greatly appreciated), plan to decrease his chronic lovenox dose to 150 mg daily. [ ] Results of ambulatory pulse ox measurements pending. Arm rash: Noted during ED evaluation. Pt stated on 11Sep that he's "not worried about it" anymore. Source of rash is unclear, though it does not have obvious infectious, allergic, or petechial components to it. Appears to be improving without focal treatment as inpatient. - Will monitor while inpt, can f/u with PCM about it upon eventual d/c. Abdominal bloating: Noted during ED evaluation. Has had some BM here, though a bit constipated. - Pt reports unchanged vs minimal improvement. Will monitor. Headache / Neck pain: Noted during inpt stay. Pt states hes had periods of double vision and pain behind his eyes for years, including during his inpatient stay here. CT scan did not have any particular suspected source of intracranial cause. - Sx tx with Tylenol prn and voltaren gel topical tid. - Added Percocet overnight 10-11Sep. - Will recommend PCM f/u and possible eye exam for the double vision as outpt. PMH Dizziness: Pt says sx are at his 'normal' over the past 13 or so years, worse with sudden movements, will seem to slowly self-resolve. - Will monitor for acute sx changes or worsening, can f/u with PCM about it upon eventual d/c. PMH HTN: Elevated on admission. - Coreg as inpt. - Also Zocor 20 mg. PMH GERD: - On home protonix. PMH Diabetes Mellitus: - Glycemic consult, orders per pharmacy (greatly appreciated). PMH Parkinson Disease: Hx of same. - On home amantadine, Sinemet. Disposition: Case management onboard, appreciate their help. Pt says he currently has a household caregiver but not medical at home. DVT prophy: Lovenox Code status: Full code Will discuss all the above on attending rounds this morning. JOE, PGY1 [employer] Tracking Resident Involvement: Resident Care Provided Care Provided: Adult Hospital Medicine (inpt rounds) History Resident Physician Supervision Note: I was present with Dr. Zimmer during the history and exam. I discussed the case with the resident and agree with the findings and plan as documented in the note. Any exceptions or clarifications are listed here. At present, patient reports his chronic complaints are all at baseline. This includes: chest pain, which remains aching and intermittent, but has not recurred and is his baseline; shortness of breath and fatigue with mild exertion which is ongoing but feels that it is stable compared to the last several months; episodic visual disturbance which was previously evaluated and unchanged from previous. He is willing to engage in outpatient occupational therapy and understands the importance of close follow up with Dr. cOasio General Appearance: no apparent distress, obese Eye Exam: bilateral eye PERRL, bilateral eye EOMI Neck: non-tender, full range of motion, supple Respiratory: chest non-tender, lungs clear, normal breath sounds, no respiratory distress Cardiovascular: normal peripheral pulses, regular rate, rhythm, no edema, no murmur Gastrointestinal: normal bowel sounds, non tender, soft, no organomegaly Neurologic/Psychiatric: prescription eyeglass maker II-XII nml as tested, alert, normal mood/affect, oriented x 3 Assessment/Plan 62 y/o male h/o Parkinson's dz, APL, DMII, HTN p/w chest pain, SOB, fatigue and rash SOB/fatigue - SOB at baseline per patient Elevated Lovenox level - dosing adjustment to 120mg BID - would transition to 150mg daily as outpatient and recheck trough w/ heme/onc (tomorrow) Chest pain - at patient baseline, echo unchanged from previous Arm rash - asymptomatic w/ gradual improvement Headache - continue voltaren w/ percocet for breakthrough pain HTN - continue coreg DMII - glycemic consult, continue simvastatin Parkinson's - continue amantadine and sinemet
[2017-02-25 07:13] VITALS: BP 182/84; PULSE 68; TEMP 36.3; O2SAT 99
[2017-02-25 08:00] VITALS: O2SAT 99
[2017-02-25] MEDS: AVODART~ORDER AWAITING ACTION SCH (08:00)
[2017-02-25] MEDS: FLUOXETINE HCL 20 MG CAP PO SCH (08:17)
[2017-02-25] MEDS: ALLOPURINOL 100 MG TAB PO SCH (08:17)
[2017-02-25] MEDS: CARBIDOPA/LEVODOPA 50/200MG EXT REL TAB PO SCH (08:17)
[2017-02-25] MEDS: DICLOFENAC SOD 1% GEL 100 GM TUBE EXT SCH ×2 (08:17→13:12)
[2017-02-25] MEDS: ISOSORBIDE MONONITRATE 30 MG TABCR PO SCH (08:17)
[2017-02-25] MEDS: CARVEDILOL 3.125 MG TAB PO SCH (08:17)
[2017-02-25] MEDS: PANTOprazole SOD 40 MG TAB PO SCH (08:17)
[2017-02-25] MEDS: PREGABALIN 150 MG CAP PO SCH (08:17)
[2017-02-25] MEDS: AMANTADINE HCL 100 MG CAP PO SCH (08:17)
[2017-02-25] MEDS: MIRABEGRON ER 25 MG TAB PO SCH (08:17)
[2017-02-25] MEDS: TAMSULOSIN HCL 0.4 MG CAP PO SCH (08:18)
[2017-02-25] MEDS: INSULIN ASPART 100 UNITS/ML 3 ML PEN SC SCH ×2 (08:21→12:30)
[2017-02-25] MEDS: INSULIN GLARGINE SOLOSTAR 100 UNITS/ML 3 ML PEN SC SCH (08:21)
[2017-02-25] MEDS ORDERED: ENOXAPARIN 120 MG/0.8 ML SYR SC SCH ×2 (09:00→21:00)
--- NOTE | 2017-02-25 09:16 | Pharmacy Progress Note ---
Glycemic Control Progress Note Date of Service Feb 25, 2017. Scope Glycemic Pharmacist consulted for glycemic control to write orders per [facility] inpatient glycemic control protocol. Objective Accuchecks BSG (last 24hrs): Test 02/24/17 11:12 02/24/17 16:27 02/24/17 20:25 02/25/17 08:16 Bedside Glucose 191 mg/dl (70-99) 137 mg/dl (70-99) 201 mg/dl (70-99) 150 mg/dl (70-99) Recent Pertinent Medications The patient is currently receiving: * Basal insulin: Lantus 15-22 units SQ BID (Lantus 15 units if blood sugar less than 140 mg/dL; Lantus 20 units if blood sugar 140 mg/dL or greater) * Correctional Insulin: Novolog Correction per scale ACHS Goal Range: Low 110 mg/dL - High 140 mg/dL Correction Factor: 15 mg/dL/unit * Prandial insulin: Per carb ratio of 1 unit per 5 grams CHO consumed Outpatient Anti-Diabetic Meds Lantus 30 units BID plus Novolog per sliding scale (minimal use) Assessment & Plan ASSESSMENT: * See progress note from 02/22/17 for more background info, in short: * Pt receiving SQ basal bolus insulin regimen for hyperglycemia secondary to baseline DM (outpatient regimen on hold). * Patient is currently receiving an average of 82 units of insulin per day * 44 units of basal insulin * 38 units of prandial/correctional insulin * BSGs ranging 137-201 mg/dl over the past 24hrs * Changes needed to insulin regimen: * AM Fasting BSG = 150 mg/dl. This is in slightly above goal range for patient based on inpatient targets and co-morbidities. However, the patient's blood sugars have trended downwards throughout the night into the morning. Continue sliding scale twice daily with lowered parameers Downwards trend is very promising and indicates that this dose of Lantus may be sufficient. * Post-prandial BSGs appear to fluctuate. The carbohydrate ratio does not appear to be appropriate and requires tightening. * Total daily dose = ~80 units. This dosing is yielding adequate glycemic control currently. PLAN FOR INPATIENT GLYCEMIC CONTROL: * Continuing Lantus 15-22 units SQ BID (Lantus 15 units if BSG less than 100 mg/ dL; Lantus 22 units if BSG 100 mg/dL or greater) * Continue correction factor of 15 mg/dl/unit * TIGHTEN carb ratio to 1 unit per 4 grams CHO consumed * Continuing goal range to Low 110 mg/dL - High 140 mg/dL RECOMMENDATIONS FOR DISCHARGE: * Patient's HbA1C indicates adequate control as an outpatient. As long as patient does not suffer from hypoglycemia may continue home regimen. Thank you.
[2017-02-25 10:18] VITALS: BP 146/82
--- NOTE | 2017-02-25 11:52 | Discharge Summary ---
Discharge Summary Date of Service Feb 25, 2017. (Josh. 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 * Left ventricular systolic function is normal. * Grade I diastolic dysfunction, (abnormal relaxation pattern). * TAPSE suggests normal RV function but 2D images suggest some reduced RV systolic function. * Compared to a study performed on 01/03/2017, there is no notable difference Consultations: Cardiology, pharmacy, physical and occupational therapy (Josh. Zimmer M.D.) Medication Reconciliation New Medications: Enoxaparin (Lovenox) 120 Mg/0.8 Ml Inj 120 MG SC Q12 for 1 Day Continued Medications: Allopurinol (Allopurinol) 100 Mg Tab 100 MG PO DAILY Amantadine HCl (Amantadine HCl) 100 Mg Cap 100 MG PO BID Ascorbic Acid (Vitamin C) 500 Mg Tab 500 MG PO QAM Carbidopa/Levodopa (Sinemet Cr 50MG/200MG) Tabcr 1 TAB PO BID Colchicine (Colchicine) 0.6 Mg Tab 0.6 MG PO DAILY PRN for GOUT, TAB Dutasteride (Avodart) 0.5 Mg Cap 0.5 MG PO DAILY, CAP Ferrous Sulfate (Iron) 325 Mg Tab 1 TAB PO DAILY Fluoxetine (Prozac) 40 Mg Cap 40 MG PO DAILY, CAP Furosemide (Lasix) 80 Mg Tab 80 MG PO DAILY, TAB ALSO CAN TAKE TWICE DAILY NEEDED FOR EDEMA Insulin Glargine (Lantus) 100 Unit/Ml Inj 30 UNITS SC BID Isosorbide Mononitrate (Isosorbide Mononitrate ER) 30 Mg Tabcr 30 MG PO QAM, #30 Losartan Potassium (Cozaar) 50 Mg Tab 50 MG PO DAILY, TAB Mirabegron (Myrbetriq Er) 50 Mg Tab 50 MG PO DAILY, TAB Omeprazole (Prilosec) 40 Mg Cap 1 CAP PO DAILY for 30 Days, #30 CAP 3 Refills Oxycodone/Acetaminophen 5MG/325MG (Percocet 5MG/325MG) Tab 1-2 TABLETS PO Q4H PRN for Pain, TAB Pregabalin (Lyrica) 300 Mg Cap 300 MG PO BID Simvastatin (Zocor) 20 Mg Tab 20 MG PO QPM, TAB Spironolactone (Aldactone) 25 Mg Tab 25 MG PO BID, TAB Tamsulosin Hcl (Flomax) 0.4 Mg Cap 0.4 MG PO DAILY, CAP Zolpidem Tartrate (Ambien) 10 Mg Tab 10 MG PO HS PRN for Sleep, TAB Discontinued Medications: Enoxaparin Sodium (Enoxaparin Sodium) 150 Mg/Ml Inj 150 MG SC Q12 Insulin Aspart (Novolog Flexpen) 100 Units/Ml Inj 0 SQ UD per sliding scale Discharge Exam Review of Systems: Constitutional: No fever, No chills Respiratory: + shortness of breath, No cough Cardiovascular: + chest pain, + edema Abdomen: + constipation, No nausea, No vomiting, No diarrhea Physical Exam: General Appearance: no apparent distress Respiratory/Chest: lungs clear, normal breath sounds Cardiovascular: regular rate, rhythm, no murmur Abdomen / GI: normal bowel sounds, non tender, soft Extremities: no calf tenderness, + pedal edema (1+ bilateral) Neurologic/Psychiatric: alert, normal mood/affect (Josh. Zimmer M.D.) Hospital Course 62yo male presented/admitted via ED on 09Sep with chest pain, SOB, and arm rash. Chest pain: ED EKG non-ischemic, TnI x3 negative, portable CXR clear, repeat cardiac echo on 11Sep read as unchanged from December 2016 study. After clarification with pt, his mild CP and SOB is his baseline. Not pts primary concern during this hospitalization. SOB, hx PE and antiphospholipid syndrome: Prior hx of PE, IVC filter and thrombosis of same, on chronic lovenox. After clarification with pt, his mild CP and SOB is his baseline. Chronic pulmonary emboli likely contributing. pCXR here was clear. Repeat cardiac echo on 11Sep read as unchanged from December 2016 study. Single dose Lasix given 10Sep for possible sx relief... unclear if it changed sx, as pt states he's at his baseline now. PT consulted and discharged off case on initial evaluation. OT recommended further OT. Pt states hes amenable to rehab upon d/c. - Had discussion of checking peak and trough levels of Anti X-a and consultation with pharmacy (greatly appreciated), plan to decrease his chronic lovenox dose to 150 mg daily over time. Pt says he has an appt with hematology to discuss the same for tomorrow (14Sep). Arm rash: Noted during ED evaluation. Pt stated on 11Sep that he's "not worried about it" anymore. Source of rash is unclear, though it does not have obvious infectious, allergic, or petechial components to it. Appears to be improving without focal treatment as inpatient. Abdominal bloating: Noted during ED evaluation. Has had some BM here, though a bit constipated. Suspect pt is at his baseline discomfort for this. Headache / Neck pain: Noted during inpt stay. Pt states hes had periods of double vision and pain behind his eyes for years, including during his inpatient stay here. CT scan [id number] did not have any particular suspected source of intracranial cause. Have been tx pain with Tylenol prn and voltaren gel topical tid, along with occasional Percocet. Recommend PCM f/u and possible eye exam for the double vision as outpt. PMH Dizziness: Pt says sx are at his 'normal' over the past 13 or so years, worse with sudden movements, will seem to slowly self-resolve. Rec'd to pt f/u with PCM about the same. PMH HTN: Elevated on admission, improved a bit over time. Will need ongoing PCM management as outpt. PMH GERD: On home protonix. PMH Diabetes Mellitus: Was on glycemic consult as inpt. Will need ongoing PCM management as outpt. PMH Parkinson Disease: Continued on home amantadine, Sinemet. DVT prophy as inpt: Lovenox Code status: Full code Total Time Spent: Greater than 30 minutes This includes examination of the patient, discharge planning, medication reconciliation, and communication with other providers. (Josh. Zimmer M.D.) Discharge Instructions Please refer to the electronic Patient Visit Report (Discharge Instructions) for additional information. (Josh. Zimmer M.D.) Follow-Up Overall, pt would benefit from f/u with PCM and cardiology (Dr. Haider) in about a week s/p discharge. Pt has hematology appt already scheduled for tomorrow ( 14Sep). (Josh. Zimmer M.D.) Additional Copies To Reza Ocasio Jr,Rachna.O. Assessment/Plan Resident Physician Supervision Note: I was present with Dr. Zimmer during the history and exam. I discussed the case with the resident and agree with the findings and plan as documented in the note. For full attending documentation, please see note from day of discharge. (Enrique Rodriguez MD)
[2017-02-25] MEDS ORDERED: LVNIS120 SC (11:58)
[2017-02-25] MEDS ORDERED: ENOXAPARIN 120 MG/0.8 ML SYR SQ SCH (12:00)
--- NOTE | 2017-02-25 12:03 | Discharge Instructions ---
Discharge Instructions Date of Service Feb 25, 2017. Admission Reason for Admission: Chest Pain Discharge Discharge Diagnosis / Problem: Chest pain, Shortness of Breath, Arm rash Discharge Goals Goal(s): Improve function, Increase independence Activity Recommendations Activity Limitations: per Instructions/Follow-up section Exercise/Sports Limitations: as tolerated . Instructions / Follow-Up Instructions / Follow-Up - Please follow up with your lead infrastructure architect as previously scheduled for tomorrow ( Feb 26). They will be addressing the future dosing of your lovenox. You were advised initially to decrease the dose, so you received only one day's worth of new, lower dose lovenox. It is very important that you get a new prescription from your lead infrastructure architect for the dose that they want you on in the future. - Please see your primary care provider in the next week for hospital follow-up and ongoing management of your multiple medical issues. - Please see your primary care provider in the next week for hospital follow-up and ongoing management of your chest pain. Current Hospital Diet Patient's current hospital diet: AHA Diet (Heart Healthy), Diabetes Type 2 Diet Discharge Diet Recommended Diet: AHA Diet (Heart Healthy) Procedures Procedures Performed: - Transthoracic echocardiogram - Chest x-ray Pending Studies Studies pending at discharge: no Laboratory Results Lipid Panel Test 02/23/17 06:14 Range/Units Triglycerides Level 164 H 0-150 mg/dl Cholesterol Level 161 0-200 mg/dl HDL Cholesterol 39 mg/dl Cholesterol/HDL Ratio 4.1 LDL Cholesterol, Calculated 89 mg/dl Medical Emergencies . Who to Call and When: Medical Emergencies: If at any time you feel your situation is an emergency, please call 911 immediately. . Non-Emergent Contact Non-Emergency issues call your: Primary Care Provider, Hair Dryer, Specialist ([place]) . . "Provider Documentation" section prepared by Rosas Zimmer. . VTE Core Measure Inpt VTE Proph given/why not?: Enoxaparin (Lovenox)SQ, SCD's
[2017-02-25 12:24] VITALS: BP 146/82; PULSE 68; TEMP 36.3; O2SAT 99
[2017-03-12] MEDS ORDERED: PRT40 PO (10:50)
[2017-03-12] MEDS ORDERED: FURO80TA63 PO (10:50)
[2017-03-12] MEDS ORDERED: ZNT150 PO (10:50)
[2017-03-12] MEDS ORDERED: INSDGI SC (10:50)
[2017-03-12] MEDS ORDERED: VERA1TAB52 PO (10:50)
[2017-03-12] MEDS ORDERED: SPIR25TA PO (10:50)
[2017-03-12] MEDS ORDERED: LVNIS150 SC (10:50)
== END 2017-02-25 14:48 | disposition home health service (06) | DRG 176 ==
LOC: EDBD 18:48 → C.EDC 18:49 → C.2T 22:14 → ENRESERV 22:19 → OBSVTOIN 02-22 18:18 → ENRESERV 02-23 15:48 → C.4E 02-23 16:50
PROVIDERS: ADMIT Hospitalist; ATTEND Family Medicine
DX: I27.82 Chronic pulmonary embolism (principal); Z68.41 Body mass index [BMI] 40.0-44.9, adult; D68.61 Antiphospholipid syndrome; I50.30 Unspecified diastolic (congestive) heart failure; R07.9 Chest pain, unspecified; E66.9 Obesity, unspecified; K21.9 Gastro-esophageal reflux disease without esophagitis; R21 Rash and other nonspecific skin eruption; R14.0 Abdominal distension (gaseous); R51 Headache; I11.0 Hypertensive heart disease with heart failure; R42 Dizziness and giddiness; E11.40 Type 2 diabetes mellitus with diabetic neuropathy, unspecified; G20 Parkinson's disease; R79.89 Other specified abnormal findings of blood chemistry; F41.9 Anxiety disorder, unspecified; F32.9 Major depressive disorder, single episode, unspecified; M10.9 Gout, unspecified; N40.0 Benign prostatic hyperplasia without lower urinary tract symptoms; Z79.01 Long term (current) use of anticoagulants; Z79.899 Other long term (current) drug therapy; Z95.828 Presence of other vascular implants and grafts; Z86.718 Personal history of other venous thrombosis and embolism; Z79.4 Long term (current) use of insulin; Z79.891 Long term (current) use of opiate analgesic

== ENCOUNTER 2017-03-07 21:10 | Observation (INO) | payer OTHER ==
[~2017-03-07] VITALS: Ht 175.3 cm; Wt 128.5 kg
[~2017-03-07 21:10] MED LIST changes: -CRG3125 PO; -DTRSR/2 PO; -ENOX1INJ14 SC; +LVNIS120 SC; -NITR-5 PO; +OMEP40CA41 PO; -PRLSR20 PO
--- NOTE | 2017-03-07 22:23 | EMERGENCY ROOM VISIT NOTE ---
History Report prepared by Tyra: Betito Hayden Under the Supervision of: Dr. Violet Sneed D.O. First contact with patient: 21:35 Chief Complaint: RESPIRATORY PROBLEMS Stated Complaint: PAIN,TROUBLE BREATHING History of Present Illness The patient is a 62 year old male who presents to the Emergency Room with complaints of constant chest pain and shortness of breath starting at the same time this morning. The patient states that his shortness of breath is worsened with exertion. He states that he is having pain in his rib cage, chest, abdomen , and his leg. The patient states that five days ago he was coughing up blood, and he states that last time he coughed up blood he had PEs. He states that he is currently on Lovenox and has not missed any doses. He states that he has a persistent cough and usually produces white and yellow phlegm. The patient additionally states that he has been having some posterior neck pain. 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 He states that he has had filters and stents placed, though his filters have been clogged before. He states that he has no family history of clots, and he has a past medical history of CHF and hypertension. He also uses a CPAP for sleep apnea. Pt denies headache, change in vision, fevers, nausea, vomiting, diarrhea, pain with urination, and melena. Source of History: patient Onset: this morning Position: chest, other (global) Quality: other (shortness of breath) Timing: constant Modifying Factors (Worsening): exertion Associated Symptoms: + abdominal pain Note: Associated symptoms: rib cage pain. Review of Systems See HPI for pertinent positives & negatives. A total of 10 systems reviewed and were otherwise negative. Past Medical & Surgical Medical Problems: (1) Catheter-associated urinary tract infection (2) Diabetes mellitus (3) Dyspnea (4) Gastroesophageal reflux disease (5) Gout (6) Parkinson's disease (7) Pulmonary embolism (8) Right upper extremity numbness (9) Syncope (10) Weakness Family History Cancer Diabetes mellitus FH: heart disease Hypertension Social History Smoking Status: Never Smoker Alcohol Use: none Drug Use: none Marital Status: Housing Status: lives alone Occupation Status: retired Current/Historical Medications Scheduled Allopurinol (Allopurinol), 100 MG PO DAILY Amantadine HCl (Amantadine HCl), 100 MG PO BID Ascorbic Acid (Vitamin C), 500 MG PO QAM Carbidopa/Levodopa (Sinemet Cr 50MG/200MG), 1 TAB PO BID Dutasteride (Avodart), 0.5 MG PO DAILY Enoxaparin (Lovenox), 120 MG SC Q12 Ferrous Sulfate (Iron), 1 TAB PO DAILY Fluoxetine (Prozac), 40 MG PO DAILY Furosemide (Lasix), 80 MG PO DAILY Insulin Glargine (Lantus), 30 UNITS SC BID Isosorbide Mononitrate (Isosorbide Mononitrate ER), 30 MG PO QAM Losartan Potassium (Cozaar), 50 MG PO DAILY Mirabegron (Myrbetriq Er), 50 MG PO DAILY Omeprazole (Prilosec), 1 CAP PO DAILY Pregabalin (Lyrica), 300 MG PO BID Simvastatin (Zocor), 20 MG PO QPM Spironolactone (Aldactone), 25 MG PO BID Tamsulosin Hcl (Flomax), 0.4 MG PO DAILY Scheduled PRN Colchicine (Colchicine), 0.6 MG PO DAILY PRN for GOUT Oxycodone/Acetaminophen 5MG/325MG (Percocet 5MG/325MG), 1-2 TABLETS PO Q4H PRN for Pain Zolpidem Tartrate (Ambien), 10 MG PO HS PRN for Sleep Allergies Coded Allergies: Penicillins (Verified Allergy, Severe, 02/21/17) SEVERE RXN PER PT Cephalosporins (Verified Allergy, Unknown, 02/21/17) Sulfamethoxazole w/Trimethoprim (Verified Allergy, Unknown, ., 02/21/17) TAKES LASIX AT HOME Lisinopril (Verified Adverse Reaction, Intermediate, Cough, 02/21/17) Physical Exam Vital Signs Date Time Temp Pulse Resp B/P (MAP) Pulse Ox O2 Delivery O2 Flow Rate FiO2 03/08/17 02:32 82 20 170/106 97 Room Air 03/08/17 01:53 84 20 187/102 97 Room Air 03/08/17 00:34 90 20 181/102 96 Room Air 03/08/17 00:01 122 22 91 Room Air 03/07/17 23:18 97 19 196/103 95 Room Air 03/07/17 22:10 97 03/07/17 22:05 97 03/07/17 22:05 97 Room Air 03/07/17 21:18 37.0 109 20 195/91 96 Room Air Physical Exam GENERAL: alert, well appearing, well nourished, no distress, non-toxic EYE EXAM: normal conjunctiva, PERRL and EOM's grossly intact OROPHARYNX: no exudate, no erythema, lips, buccal mucosa, and tongue normal and mucous membranes are moist NECK: supple, no nuchal rigidity, no adenopathy, non-tender LUNGS: Lung sounds were diminished. No wheezing, rhonchi, or rales. Normal chest wall mechanics HEART: no murmurs, S1 normal and S2 normal ABDOMEN: Obese abdomen. abdomen soft, non-tender, normo-active bowel sounds, no masses, no rebound or guarding. BACK: Back is symmetrical on inspection and there is no deformity, no midline tenderness, no CVA tenderness. SKIN: no rashes and no bruising UPPER EXTREMITIES: upper extremities are grossly normal. LOWER EXTREMITIES: No pitting edema. NEURO EXAM: Normal sensorium, cranial nerves II-XII grossly intact, normal speech, no gross weakness of arms, no gross weakness of legs.. Gross sensation intact. Medical Decision & Procedures ER Provider Diagnostic Interpretation: Radiology results have been interpreted by the radiologist and reviewed by me. CHEST ONE VIEW PORTABLE HISTORY: Short of breath. COMPARISON: Chest 02/21/2017. FINDINGS: The lungs are clear. Cardiac silhouette is normal in size. No pleural effusions. No pneumothorax. IMPRESSION: No acute process. Electronically signed by: Silver Rhodes M.D. 03/07/2017 10:59 PM Dictated Date/Time: 03/07/2017 10:56 PM Laboratory Results 03/07/17 22:35 Red Blood Count 4.78, Mean Corpuscular Volume 88.7, Mean Corpuscular Hemoglobin 29.3, Mean Corpuscular Hemoglobin Concent 33.0, Mean Platelet Volume 10.0, Neutrophils (%) (Auto) 66.7, Lymphocytes (%) (Auto) 21.8, Monocytes (%) (Auto) 6.9, Eosinophils (%) (Auto) 4.0, Basophils (%) (Auto) 0.3, Neutrophils # (Auto) 4.71, Lymphocytes # (Auto) 1.54, Monocytes # (Auto) 0.49, Eosinophils # (Auto) 0.28, Basophils # (Auto) 0.02 03/07/17 22:35 Test 03/07/17 22:35 03/07/17 22:45 03/07/17 22:46 White Blood Count 7.06 K/uL (4.8-10.8) Red Blood Count 4.78 M/uL (4.7-6.1) Hemoglobin 14.0 g/dL (14.0-18.0) Hematocrit 42.4 % (42-52) Mean Corpuscular Volume 88.7 fL (80-100) Mean Corpuscular Hemoglobin 29.3 pg (25-34) Mean Corpuscular Hemoglobin Concent 33.0 g/dl (32-36) Platelet Count 156 K/uL (130-400) Mean Platelet Volume 10.0 fL (7.4-10.4) Neutrophils (%) (Auto) 66.7 % Lymphocytes (%) (Auto) 21.8 % Monocytes (%) (Auto) 6.9 % Eosinophils (%) (Auto) 4.0 % Basophils (%) (Auto) 0.3 % Neutrophils # (Auto) 4.71 K/uL (1.4-6.5) Lymphocytes # (Auto) 1.54 K/uL (1.2-3.4) Monocytes # (Auto) 0.49 K/uL (0.11-0.59) Eosinophils # (Auto) 0.28 K/uL (0-0.5) Basophils # (Auto) 0.02 K/uL (0-0.2) RDW Standard Deviation 43.2 fL (36.4-46.3) RDW Coefficient of Variation 13.2 % (11.5-14.5) Immature Granulocyte % (Auto) 0.3 % Immature Granulocyte # (Auto) 0.02 K/uL (0.00-0.02) Prothrombin Time 10.2 SECONDS (9.0-12.0) Prothromb Time International Ratio 1.0 (0.9-1.1) Anion Gap 11.0 mmol/L (3-11) Est Creatinine Clear Calc Drug Dose 91.8 ml/min Estimated GFR () 82.4 Estimated GFR (Non- 71.1 BUN/Creatinine Ratio 19.2 (10-20) Calcium Level 9.7 mg/dl (8.5-10.1) Magnesium Level 2.4 mg/dl (1.8-2.4) Total Bilirubin 0.4 mg/dl (0.2-1) Aspartate Amino Transf (AST/SGOT) 10 U/L (15-37) Alanine Aminotransferase (ALT/SGPT) 24 U/L (12-78) Alkaline Phosphatase 133 U/L (45-117) Pro-B-Type Natriuretic Peptide 169 pg/ml (0-900) Total Protein 7.6 gm/dl (6.4-8.2) Albumin 3.4 gm/dl (3.4-5.0) Globulin 4.2 gm/dl (2.5-4.0) Albumin/Globulin Ratio 0.8 (0.9-2) Influenza Type A Antigen Neg for Influ A (NEG) Influenza Type B Antigen Neg for Influ B (NEG) Lactic Acid Level 1.4 mmol/L (0.4-2.0) Laboratory results per my review. ECG Indication: SOB/dyspnea Rate (beats per minute): 102 Rhythm: sinus tachycardia Findings: 1st degree AV block, no acute ischemic change, no ectopy, other ( Normal axis) ED Course 2135: The patient was evaluated in room C5. A complete history and physical exam was performed. 0015: I reevaluated the patient, and he was very winded and tired with walking, and his oxygen saturation dropped to 90% 0046: I reviewed the patient's case with Dr. Cardenas [facility] [place]. He will evaluate the patient for further management. Would like CT angio chest added. Medical Decision Differential diagnosis: Etiologies such as infections, reactive airway disease, pneumonia, pneumothorax , COPD, CHF, cardiac ischemia, pulmonary embolism, musculoskeletal, gastrointestinal, as well as others were entertained. Patient with multiple chronic comorbidities, chronically anticoagulated, however history of PEs and risk factor for ACS. Patient did have recent admission, however no CT injury of the chest performed. Upon discussion with resident time of admission, they would like this added. Labs here reassuring, patient with no recurrent hemoptysis since Thursday. Other vital signs stable, however with any exertion patient's oxygen saturations dropped, he appears dyspneic and has increased work of breathing reports increased fatigue. Additional concern given the patient lives alone, does not have home oxygen, and states the mask for CPAP is broken. EKG and troponin here negative. I have a low suspicion for recurrent PE given that he is manic regular didn't denies missing her skipping any doses. No evidence of acute infectious etiology. Feel patient's prior hemoptysis likely due to frequent coughing in the setting of being on blood thinners. No evidence of new infiltrate or effusion on chest x-ray. Medication Reconcilliation Current Medication List: was personally reviewed by me Blood Pressure Screening Patient's blood pressure: Elevated blood pressure Blood pressure disposition: Referred to PCP Consults Time Called: 18 Consulting Physician: MYNOR Osuna Returned Call: 45 I reviewed the patient's case with MYNOR Osuna. He will evaluate the patient for further management. Impression Primary Impression: Chest pain Additional Impressions: Dyspnea on exertion Hemoptysis Hypertension Scribe Attestation The scribe's documentation has been prepared under my direction and personally reviewed by me in its entirety. I confirm that the note above accurately reflects all work, treatment, procedures, and medical decision making performed by me. Departure Information Dispostion Being Evaluated By Hospitalist Referrals Reza Ocasio Jr,D.O. (PCP) Patient Instructions [facility] Problem Qualifiers Primary Impression: Chest pain Chest pain type: unspecified Qualified Codes: R07.9 - Chest pain, unspecified Additional Impressions: Hypertension Hypertension type: essential hypertension Qualified Codes: I10 - Essential ( primary) hypertension
[2017-03-07 22:51] LABS: BASO % 0.3 %; BASO ABS # 0.02 K/uL (0-0.2); COMPLETE YES; HEMATOCRIT 42.4 % (42-52); IG% 0.3 %; LYMPH % 21.8 %; LYMPH ABS # 1.54 K/uL (1.2-3.4); MEAN CELL VOLUME 88.7 fL (80-100); MEAN CORPUSCULAR HEMOGLOBIN 29.3 pg (25-34); MONO % 6.9 %; NEUT % 66.7 %; PLATELET COUNT 156 K/uL (130-400); RED BLOOD COUNT 4.78 M/uL (4.7-6.1); WHITE BLOOD COUNT 7.06 K/uL (4.8-10.8)
[2017-03-07 22:59] LABS: PROTHROMBIN TIME (PATIENT) 10.2 SECONDS (9.0-12.0)
--- NOTE | 2017-03-07 23:00 | DIAGNOSTIC IMAGING REPORT ---
CHEST ONE VIEW PORTABLE HISTORY: Short of breath. COMPARISON: Chest 02/21/2017. FINDINGS: The lungs are clear. Cardiac silhouette is normal in size. No pleural effusions. No pneumothorax. IMPRESSION: No acute process. Electronically signed by: Silver Rhodes M.D. 03/07/2017 10:59 PM Dictated Date/Time: 03/07/2017 10:56 PM
[2017-03-07 23:24] LABS: ALB/GLOB RATIO 0.8 (0.9-2); ALKALINE PHOSPHATASE 133 U/L (45-117); ALT/SGPT 24 U/L (12-78); BLOOD UREA NITROGEN 21 mg/dl (7-18); BUN/CREATININE RATIO 19.2 (10-20); CALCIUM 9.7 mg/dl (8.5-10.1); CARBON DIOXIDE 24 mmol/L (21-32); CHLORIDE 104 mmol/L (98-107); GLUCOSE 237 mg/dl (70-99)
[2017-03-07 23:32] LABS: POTASSIUM 4.3 mmol/L (3.5-5.1); SODIUM 139 mmol/L (136-145)
[2017-03-07 23:38] LABS: AST/SGOT 10 U/L (15-37); MAGNESIUM 2.4 mg/dl (1.8-2.4)
[2017-03-08] VITALS (8 sets, daily range): BP systolic 115–204; BP diastolic 69–100; PULSE 68–115; TEMP 36.4–36.9; O2SAT 93–98; Ht 175.3 cm; Wt 128.5 kg
[2017-03-08] MEDS ORDERED: OPTIRAY 320 IV PRN (01:00)
[2017-03-08] MEDS ORDERED: OXYCODONE/ACETAMINOPHEN 5-325 TAB PO ONE (01:45)
[2017-03-08] MEDS ORDERED: ALBUT/IPRATROP 3MG/0.5MG NEB 3 ML VIAL INH PRN (02:45)
[2017-03-08] MEDS ORDERED: ACETAMINOPHEN 325 MG TAB PO PRN (02:45)
[2017-03-08] MEDS ORDERED: ZOLPIDEM TARTRATE 10 MG TAB PO PRN (02:45)
[2017-03-08] MEDS ORDERED: COLCHICINE 0.6 MG TAB PO PRN (02:45)
[2017-03-08] MEDS ORDERED: OXYCODONE/ACETAMINOPHEN 5-325 TAB PO PRN (02:45)
[2017-03-08] MEDS ORDERED: GLUCAGON FOR INJ 1 MG VIAL SQ PRN (03:00)
[2017-03-08] MEDS ORDERED: GLUCOSE 10 TABS/TUBE PO PRN (03:00)
[2017-03-08] MEDS ORDERED: DEXTROSE 50% 50 ML SYR IV PRN (03:00)
[2017-03-08] MEDS ORDERED: GLUCOSE 40% GEL 15 GM TUBE PO PRN (03:00)
--- NOTE | 2017-03-08 03:28 | History and Physical ---
History & Physical Date & Time of Service: Mar 08, 2017 at 03:07 Chief Complaint: Pain,Trouble Breathing Primary Care Physician: Reza Ocasio Jr,D.O. History of Present Illness Source: patient The patient is a 62-year-old male is status post admission to [facility] from February 22 through February 25 for similar symptoms as today of shortness of breath, fatigue and abdomen and leg pains. He reports he had a single episode of hemoptysis 4 days ago. He has not had any recent travel or sick exposures. He feels that the pain in his abdomen and legs are due to his history of pulmonary emboli. Past Medical/Surgical History Medical Problems: (1) Diabetes mellitus Status: Chronic (2) Gastroesophageal reflux disease Status: Chronic (3) Gout Status: Chronic (4) Parkinson's disease Status: Chronic (5) Pulmonary embolism Status: Resolved Family History Cancer Diabetes mellitus FH: heart disease Hypertension Social History Smoking Status: Never Smoker Smokeless Tobacco Use: No Alcohol Use: none Drug Use: none Marital Status: Housing status: lives alone Occupational Status: retired Immunizations History of Influenza Vaccine: Unknown History of Tetanus Vaccine?: probably over 10 yrs ago History of Pneumococcal: apr 2004 History of Hepatitis B Vaccine: 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 Multi-Drug Resistant Organisms History of MDRO: No Allergies Coded Allergies: Penicillins (Verified Allergy, Severe, 02/21/17) SEVERE RXN PER PT Cephalosporins (Verified Allergy, Unknown, 02/21/17) Sulfamethoxazole w/Trimethoprim (Verified Allergy, Unknown, ., 02/21/17) TAKES LASIX AT HOME Lisinopril (Verified Adverse Reaction, Intermediate, Cough, 02/21/17) Home Medications Scheduled Allopurinol (Allopurinol), 100 MG PO DAILY Amantadine HCl (Amantadine HCl), 100 MG PO BID Ascorbic Acid (Vitamin C), 500 MG PO QAM Carbidopa/Levodopa (Sinemet Cr 50MG/200MG), 1 TAB PO BID Dutasteride (Avodart), 0.5 MG PO DAILY Enoxaparin (Lovenox), 120 MG SC Q12 Ferrous Sulfate (Iron), 1 TAB PO DAILY Fluoxetine (Prozac), 40 MG PO DAILY Furosemide (Lasix), 80 MG PO DAILY Insulin Glargine (Lantus), 30 UNITS SC BID Isosorbide Mononitrate (Isosorbide Mononitrate ER), 30 MG PO QAM Losartan Potassium (Cozaar), 50 MG PO DAILY Mirabegron (Myrbetriq Er), 50 MG PO DAILY Omeprazole (Prilosec), 1 CAP PO DAILY Pregabalin (Lyrica), 300 MG PO BID Simvastatin (Zocor), 20 MG PO QPM Spironolactone (Aldactone), 25 MG PO BID Tamsulosin Hcl (Flomax), 0.4 MG PO DAILY Scheduled PRN Colchicine (Colchicine), 0.6 MG PO DAILY PRN for GOUT Oxycodone/Acetaminophen 5MG/325MG (Percocet 5MG/325MG), 1-2 TABLETS PO Q4H PRN for Pain Zolpidem Tartrate (Ambien), 10 MG PO HS PRN for Sleep Review of Systems The patient denies chest pain, palpitations, cough, lower extremity swelling, vision change, hearing change, sore throat, fevers, chills, sweats, weight change, nausea, vomiting, diarrhea or constipation, abdominal pain, pelvic pain , blood in urine or stool, dysuria, urinary frequency or urgency, lightheadedness, dizziness, headache, memory loss, rash, abnormal bruising or bleeding, imbalance, focal or generalized weakness, numbness or tingling in arms or legs, neck pain, night sweats. The review of systems is otherwise negative other than for that already noted above, and at least 10 systems have been reviewed. Physical Exam Vital Signs Date Time Temp Pulse Resp B/P (MAP) Pulse Ox O2 Delivery O2 Flow Rate FiO2 03/08/17 02:32 82 20 170/106 97 Room Air 03/08/17 01:53 84 20 187/102 97 Room Air 03/08/17 00:34 90 20 181/102 96 Room Air 03/08/17 00:01 122 22 91 Room Air 03/07/17 23:18 97 19 196/103 95 Room Air 03/07/17 22:10 97 03/07/17 22:05 97 03/07/17 22:05 97 Room Air 03/07/17 21:18 37.0 109 20 195/91 96 Room Air The patient is awake, well-developed and adequately nourished, alert and oriented 3, normocephalic and atraumatic, lying in bed and in no acute distress. HEENT--PERRL, EOMI, mucous membranes and oropharynx normal. Neck--supple, no JVD or bruits, thyroid normal, trachea midline, no adenopathy. Heart--normal S1 and S2, no extra beats, no murmurs, rubs or gallops. Lungs--clear bilaterally with good air movement, no respiratory distress, no accessory muscle use. Abdomen--normal bowel sounds and soft, nontender and nondistended, no hernias or masses, no organomegaly. Extremities--no cyanosis, clubbing or edema. There are good distal pulses b/l. Dermatologic--normal skin turgor, normal color, warm and dry, no abnormal lymph nodes, no rash. Neurologic--cranial nerves II through XII grossly intact, motor and sensory examination normal. Rheumatologic--normal range of motion, nontender, muscles and joints. Psychiatric--flat affect. Diagnostics Laboratory Results Results Past 24 Hours Test 03/07/17 22:35 03/07/17 22:45 03/07/17 22:46 Range/Units White Blood Count 7.06 4.8-10.8 K/uL Red Blood Count 4.78 4.7-6.1 M/uL Hemoglobin 14.0 14.0-18.0 g/dL Hematocrit 42.4 42-52 % Mean Corpuscular Volume 88.7 80-100 fL Mean Corpuscular Hemoglobin 29.3 25-34 pg Mean Corpuscular Hemoglobin Concent 33.0 32-36 g/dl Platelet Count 156 130-400 K/uL Mean Platelet Volume 10.0 7.4-10.4 fL Neutrophils (%) (Auto) 66.7 % Lymphocytes (%) (Auto) 21.8 % Monocytes (%) (Auto) 6.9 % Eosinophils (%) (Auto) 4.0 % Basophils (%) (Auto) 0.3 % Neutrophils # (Auto) 4.71 1.4-6.5 K/uL Lymphocytes # (Auto) 1.54 1.2-3.4 K/uL Monocytes # (Auto) 0.49 0.11-0.59 K/uL Eosinophils # (Auto) 0.28 0-0.5 K/uL Basophils # (Auto) 0.02 0-0.2 K/uL RDW Standard Deviation 43.2 36.4-46.3 fL RDW Coefficient of Variation 13.2 11.5-14.5 % Immature Granulocyte % (Auto) 0.3 % Immature Granulocyte # (Auto) 0.02 0.00-0.02 K/uL Prothrombin Time 10.2 9.0-12.0 SECONDS Prothromb Time International Ratio 1.0 0.9-1.1 Sodium Level 139 136-145 mmol/L Potassium Level 4.3 3.5-5.1 mmol/L Chloride Level 104 98-107 mmol/L Carbon Dioxide Level 24 21-32 mmol/L Anion Gap 11.0 3-11 mmol/L Blood Urea Nitrogen 21 7-18 mg/dl Creatinine 1.10 0.60-1.40 mg/dl Est Creatinine Clear Calc Drug Dose 91.8 ml/min Estimated GFR () 82.4 Estimated GFR (Non- 71.1 BUN/Creatinine Ratio 19.2 10-20 Random Glucose 237 70-99 mg/dl Calcium Level 9.7 8.5-10.1 mg/dl Magnesium Level 2.4 1.8-2.4 mg/dl Total Bilirubin 0.4 0.2-1 mg/dl Aspartate Amino Transf (AST/SGOT) 10 15-37 U/L Alanine Aminotransferase (ALT/SGPT) 24 12-78 U/L Alkaline Phosphatase 133 45-117 U/L Troponin I < 0.015 0-0.045 ng/ml Pro-B-Type Natriuretic Peptide 169 0-900 pg/ml Total Protein 7.6 6.4-8.2 gm/dl Albumin 3.4 3.4-5.0 gm/dl Globulin 4.2 2.5-4.0 gm/dl Albumin/Globulin Ratio 0.8 0.9-2 Influenza Type A Antigen Neg for Influ A NEG Influenza Type B Antigen Neg for Influ B NEG Lactic Acid Level 1.4 0.4-2.0 mmol/L Diagnostic Radiology Patient Name: GARY SCHWAB Unit Number: [id number] Dictated: 03/07/172255 Transcribed: 03/07/172255 BHARATHI Printed Date/Time: [~ rep prt dt]/[~ rep prt tm] [~ rep ct labl] - [~ rep ct ivnm] [facility] [place] [address] Dictated: 03/07/172255 Transcribed: 03/07/172255 [place] Printed Date/Time: [~ rep prt dt]/[~ rep prt tm] [~ rep ct labl] - [~ rep ct ivnm] [~ rep ct add3]] CHEST ONE VIEW PORTABLE HISTORY: Short of breath. COMPARISON: Chest 02/21/2017. FINDINGS: The lungs are clear. Cardiac silhouette is normal in size. No pleural effusions. No pneumothorax. IMPRESSION: No acute process. Electronically signed by: Silver Rhodes M.D. 03/07/2017 10:59 PM Dictated Date/Time: 03/07/2017 10:56 PM The status of this report is Signed. Draft = Not yet reviewed or approved by Radiologist. Signed = Reviewed and approved by Radiologist. <AttendingPhy></AttendingPhy> <FamilyPhy>Reza Ocasio Jr,D.O.</FamilyPhy> < PrimaryPhy>Reza Ocasio Jr,D.O.</PrimaryPhy> <UnitNumber>[id number]</ UnitNumber> <VisitNumber>[id number]</VisitNumber> <PatientName>GARY SCHWAB</PatientName> <DateOfBirth>1955</DateOfBirth> <Location>[facility]</ Location> <ServiceDate>03/07/17</ServiceDate> <MNE>ESINDI</MNE> <OrderingPhy> Violet Sneed DO</OrderingPhy> <OrderingPhyMNE>f rep ord dr [place]</ OrderingPhyMNE> <DictatingPhyMNE>f rep dict dr [place]</DictatingPhyMNE> <CCListMNE> f rep ct mne</CCListMNE> <AdmittingPhyMNE>f pt admit dr [place]</AdmittingPhyMNE> < AttendingPhyMNE>f pt attend dr [place]</AttendingPhyMNE> <ConsultingPhyMNE>f pt consult dr [place]ton</ConsultingPhyMNE> <FamilyPhyMNE>f pt fam dr [place]ton</FamilyPhyMNE> <OtherPhyMNE>f pt other dr washington</OtherPhyMNE> < PrimaryPhyMNE>f pt prim care dr [place]ton</PrimaryPhyMNE> <ReferringPhyMNE>f pt referring dr [place]ton</ReferringPhyMNE> Patient Name: GARY SCHWAB Unit Number: [id number] Dictated: 01/23/172224 Transcribed: 01/23/172224 JA Printed Date/Time: [~ rep prt dt]/[~ rep prt tm] [~ rep ct labl] - [~ rep ct ivnm] [facility] Radiology Department [place] [id number] Dictated: 01/23/172224 Transcribed: 01/23/172224 JA Printed Date/Time: [~ rep prt dt]/[~ rep prt tm] [~ rep ct labl] - [~ rep ct ivnm] [~ rep ct add3]] BILATERAL LOWER EXTREMITY VENOUS DOPPLER CLINICAL HISTORY: Swelling. History of clot. Shortness of breath. COMPARISON STUDY: Bilateral lower extremity venous Doppler February 24, 2016. TECHNIQUE: Sonography of the deep venous system of the bilateral lower extremities was performed. Compression and augmentation were evaluated. FINDINGS: There is nonocclusive thrombus within the right common femoral, superficial femoral, popliteal and posterior tibial veins. In addition, there is nonocclusive thrombus within the left superficial femoral vein. Evaluation is difficult due to suboptimal penetration. This thrombus is age indeterminate although thrombus was shown within these vessels on exam of February 24, 2016. IMPRESSION: Nonocclusive deep venous thrombus within the right common femoral vein, bilateral superficial femoral veins, right popliteal vein and right posterior tibial vein. Evaluation is difficult due to suboptimal penetration. Thrombus was shown within these vessels on ultrasound of February 24, 2016. However, comparison by sonography is difficult. This thrombus is age indeterminate although chronic thrombus is favored. Electronically signed by: Baltazar Jacobs M.D. 01/23/2017 10:30 PM Dictated Date/Time: 01/23/2017 10:25 PM The status of this report is Signed. Draft = Not yet reviewed or approved by Radiologist. Signed = Reviewed and approved by Radiologist. <AttendingPhy></AttendingPhy> <FamilyPhy>Ocasio, Reza B.,Jr,D.O.</FamilyPhy> < PrimaryPhy>Reza Ocasio Jr, D.O.</PrimaryPhy> <UnitNumber>[id number]</ UnitNumber> <VisitNumber>[id number]</VisitNumber> <PatientName>GARY SCHWAB</PatientName> <DateOfBirth>1955</DateOfBirth> <Location>C.EDC</Location > <ServiceDate>01/23/17</ServiceDate> <MNE>ESINDI</MNE> <OrderingPhy>Rodrigo Recio M.D.</OrderingPhy> <OrderingPhyMNE>f rep ord dr [place]</OrderingPhyMNE> < DictatingPhyMNE>f rep dict dr [place]</DictatingPhyMNE> <CCListMNE>f rep ct mne</ CCListMNE> <AdmittingPhyMNE>f pt admit dr [place]</AdmittingPhyMNE> <AttendingPhyMNE >f pt attend dr [place]ton</AttendingPhyMNE> <ConsultingPhyMNE>f pt consult dr [place]</ConsultingPhyMNE> <FamilyPhyMNE>f pt fam dr [place]ton</FamilyPhyMNE> <OtherPhyMNE>f pt other dr [place]</OtherPhyMNE> < PrimaryPhyMNE>f pt prim care dr [place]</PrimaryPhyMNE> <ReferringPhyMNE>f pt referring dr [place]</ReferringPhyMNE> PATIENT. Interpretation Summary * Name: GARY SCHWAB Study Date: 02/23/2017 08:00 AM BP: 143/77 mmHg * Patient Location: C.2T\S\S239\S\2 HR: 67 * : 1955 (M/d/yyyy) Gender: Male Height: 69 in * Age: 62 yrs Ethnicity: [place] Weight: 284 lb * Ordering Physician: Aramis Lynch * Referring Physician: Self, Referred * Performed By: Pam Cordero RDCS * * Reason For Study: CHF * BSA: 2.4 m2 * -- Conclusions -- * There is mild concentric left ventricular hypertrophy. * Left ventricular systolic function is normal. * Grade I diastolic dysfunction, (abnormal relaxation pattern). * TAPSE suggests normal RV function but 2D images suggest some reduced RV systolic function. * Compared to a study performed on 01/03/2017, there is no notable difference Procedure Details * A contrast injection of Definity was performed to improve assessment of LV function. * Contrast was injected into an intravenous site in the left arm. * One vial of Definity ultrasound contrast was diluted in normal saline to a total volume of 10 ml. A total of '3' ml of solution was administered during imaging. * Lot # [id number] of Definity utilized for procedure. * Expiration date APR 01. * The attending nurse who injected the contrast agent was NOLAN HENNESSY RN. Left Ventricle * The left ventricle is normal in size. * There is mild concentric left ventricular hypertrophy. * Ejection Fraction = 55-60%. * Left ventricular systolic function is normal. * Grade I diastolic dysfunction, (abnormal relaxation pattern). * The left ventricular wall motion is normal. Right Ventricle * The right ventricle is not well visualized. * TAPSE suggests normal RV function but 2D images suggest some reduced RV systolic function. Atria * The left atrial size is normal. * Right atrial size is normal. Mitral Valve * The mitral valve is grossly normal. * Significant mitral regurgitation is absent. Tricuspid Valve * The tricuspid valve is not well visualized, but is grossly normal. * Significant tricuspid regurgitation is absent. Aortic Valve * The aortic valve is normal in structure and function. * No hemodynamically significant valvular aortic stenosis. * No aortic regurgitation is present. Great Vessels * The aortic root is normal size. Pericardium/Pleural * The pericardium appears normal. MMode 2D Measurements and Calculations IVSd 1.3 cm IVSs 1.9 cm LVIDd 4.4 cm LVIDs 3.2 cm LVPWd 1.2 cm LVPWs 1.3 cm IVS/LVPW 1.1 FS 26.5 % EDV(Teich) 86.7 ml ESV(Teich) 41.5 ml EF(Teich) 52.2 % EDV(cubed) 84.0 ml ESV(cubed) 33.3 ml EF(cubed) 60.4 % % IVS thick 40.4 % % LVPW thick 8.9 % LV mass(C)d 207.9 grams LV mass(C)dI 86.7 grams/m\S\2 LV mass(C)s 192.5 grams LV mass(C)sI 80.3 grams/m\S\2 SV(Teich) 45.2 ml SI(Teich) 18.9 ml/m\S\2 SV(cubed) 50.7 ml SI(cubed) 21.2 ml/m\S\2 Ao root diam 3.0 cm Ao root area 6.9 cm\S\2 LA dimension 3.7 cm LA/Ao 1.3 LVAd ap4 25.4 cm\S\2 LVLd ap4 7.0 cm EDV(MOD-sp4) 75.2 ml EDV(sp4-el) 78.9 ml LVAs ap4 15.7 cm\S\2 LVLs ap4 6.6 cm ESV(MOD-sp4) 29.6 ml ESV(sp4-el) 31.3 ml EF(MOD-sp4) 60.6 % EF(sp4-el) 60.3 % SV(MOD-sp4) 45.5 ml SI(MOD-sp4) 19.0 ml/m\S\2 SV(sp4-el) 47.6 ml SI(sp4-el) 19.9 ml/m\S\2 Doppler Measurements and Calculations MV E max janine 52.9 cm/sec MV A max janine 65.0 cm/sec MV E/A 0.81 MV dec time 0.27 sec Ao V2 max 107.4 cm/sec Ao max PG 4.6 mmHg Ao max PG (full) 2.0 mmHg LV V1 max PG 2.7 mmHg LV V1 max 81.5 cm/sec Created: Initialized: 02/23/17; 1236 <Electronically signed by Enrique Salazar MD> Signed: 02/23/17 1619 Enrique Salazar MD The status of this report is Signed. Draft = Not yet reviewed or approved by Intake Worker. Signed = Reviewed and approved by Intake Worker. CT angiography of chest 03/08/17-- No signs of pulmonary emboli or aortic dissection. EKG EKG shows sinus tachycardia at 102 bpm, first-degree heart block, no change compared to 02/22/2017. Impression Assessment and Plan Subjective symptoms of shortness of breath-- The patient's pulse ox is 97% on room air, and he does not look to be in any respiratory distress at any time during his emergency department assessment. CAD/hypertension/diastolic CHF-- The patient will be admitted to telemetry for serial cardiac enzymes and cardiac rhythm monitoring. Continue furosemide 80 mg by mouth daily, Imdur 30 mg by mouth every morning, losartan potassium 50 mg by mouth daily, and spironolactone 25 mg by mouth twice a day. He did have an echocardiogram performed during last admission, but did not have a stress echo performed. If his pulmonary workup is negative, consideration for a dobutamine stress echocardiogram should be performed Pulmonary embolism history/DVT history/antiphospholipid syndrome/status post IVC filter/chronic anticoagulation with Lovenox-- Continue Lovenox 150 mg subcutaneous every 12 hours. CTA of chest in the ED was negative for PE or aortic dissection. Lower extremity venous Dopplers last admission showed chronic DVT. Have available duonebs every 4 hours when necessary. Consult pulmonology for their opinion regarding contribution to his subjective symptoms of shortness of breath. Bilateral lower extremity discomfort-- May be secondary to chronic DVT. Question possibly a contribution of underlying Parkinson's. He uses Percocet when necessary at home, and is on Lyrica at maximum dosing. Could consider a trial of Requip, or possibly a trial of clonazepam at bedtime, as I suspect there may be an element of anxiety as well. Diabetes mellitus-- Continue Lantus 30 units subcutaneous twice a day. Place on Accu-Cheks before meals and at bedtime with NovoLog coverage per scale. Hyperlipidemia--continue simvastatin 20 no grams by mouth every evening. Parkinson's disease-- continue carbidopa/levodopa CR 50/200, 1 by mouth twice a day and amantadine 100 mg by mouth twice a day. BPH/bladder spasm-- Continue Avodart 0.5 mg by mouth daily, Myrbetriq ER 50 mg by mouth daily, and tamsulosin 0.4 mg by mouth at bedtime. Anxiety/depression/neuropathy-- continue fluoxetine 40 mg by mouth daily and Lyrica 3 mg by mouth twice a day. GERD-- change omeprazole to pantoprazole. Gout-- Continue allopurinol 100 mg by mouth daily. Level of Care Telemetry Advanced Directives Existing Advance Directive: No Existing Living Will: No Existing Power of Professor Of Theology: No Resuscitation Status FULL RESUSCITATION VTE Prophylaxis VTE Risk Assessment Done? Y/N: Yes Risk Level: High Given or contraindicated: Enoxaparin (Lovenox)SQ
[2017-03-08] MEDS ORDERED: IV FLUIDS COMPLETED PRN (04:45)
[2017-03-08] MEDS ORDERED: INFLUENZA ADMINISTRATION CHARGE ONE (06:15)
[2017-03-08] MEDS ORDERED: INFLUENZA VIRUS QUAD VACCINE 0.5 ML SYR IM. ONE (06:15)
--- NOTE | 2017-03-08 06:24 | DIAGNOSTIC IMAGING REPORT ---
(CHEST FOR PE) ANGIO WITH CT DOSE: 612.14 mGy.cm HISTORY: Chest pain dyspnea TECHNIQUE: Multiaxial CT images of the chest were performed following the intravenous administration of contrast to evaluate the pulmonary arteries. Maximal intensity projection images were also obtained. A dose lowering technique was utilized adhering to the principles of ALARA. COMPARISON STUDY: 01/23/2017 FINDINGS: There is a normal caliber thoracic aorta with no evidence for dissection. There is no evidence for pulmonary embolus. No pleural effusions. No pneumothorax. The liver and spleen are unremarkable. No mediastinal or hilar lymphadenopathy. The central airways are patent. The lungs are clear. Stable 6 mm nodule right upper lobe. No new or interval findings. IMPRESSION: No evidence for pulmonary embolus. Stable 6 mm nodule right upper lobe. The above report was generated using voice recognition software. It may contain grammatical, syntax or spelling errors. Electronically signed by: Kannan Bhakta M.D. 03/08/2017 6:23 AM Dictated Date/Time: 03/08/2017 6:21 AM
[2017-03-08] MEDS: ASCORBIC ACID 500 MG TAB PO SCH (07:35)
[2017-03-08] MEDS: CARBIDOPA/LEVODOPA 50/200MG EXT REL TAB PO SCH ×2 (07:35→21:35)
[2017-03-08] MEDS: ALLOPURINOL 100 MG TAB PO SCH (07:35)
[2017-03-08] MEDS: MIRABEGRON ER 25 MG TAB PO SCH (07:35)
[2017-03-08] MEDS: SPIRONOLACTONE 25 MG TAB PO SCH ×2 (07:35→16:36)
[2017-03-08] MEDS: FLUOXETINE HCL 20 MG CAP PO SCH (07:35)
[2017-03-08] MEDS: AMANTADINE HCL 100 MG CAP PO SCH ×2 (07:35→21:35)
[2017-03-08] MEDS: ISOSORBIDE MONONITRATE 30 MG TABCR PO SCH (07:35)
[2017-03-08] MEDS: LOSARTAN POTASSIUM 50 MG TAB PO SCH (07:35)
[2017-03-08] MEDS: FUROSEMIDE 80 MG TAB PO SCH (07:35)
[2017-03-08] MEDS: ENOXAPARIN 120 MG/0.8 ML SYR SC SCH ×2 (07:36→21:36)
[2017-03-08] MEDS: INSULIN ASPART 100 UNITS/ML 3 ML PEN SC SCH ×4 (08:28→21:39)
[2017-03-08] MEDS ORDERED: INSULIN GLARGINE SOLOSTAR 100 UNITS/ML 3 ML PEN SC SCH (09:00)
[2017-03-08] MEDS: PREGABALIN 150 MG CAP PO SCH ×2 (09:17→21:35)
[2017-03-08 11:38] LABS: CKMB/CK RATIO 2.6 (0-3.0)
--- NOTE | 2017-03-08 13:51 | PULMONARY CONSULTATION ---
DATE OF CONSULTATION: 03/08/2017 TIME: 11:50 a.m. REPORT OF CONSULTATION: The patient was seen in room 289, bed 1. He is a 62-year-old male who came to the Emergency Room yesterday, complaining of chest pain and shortness of breath. The patient has an extended history of these symptoms. He has had a number of evaluations in the Emergency Room in the past couple of months. He was evaluated on January 03 and into the . A CAT scan at that time showed multifocal defects in the pulmonary arteries, but the radiologist thought it was likely artifactual. The patient does have a history of pulmonary embolic disease dating back to approximately 2004. He returned to the ER on January 16, complaining of chest pain and shortness of breath. A CAT scan at that time was negative. He came to the ER on January 23, complaining of chest pain. Venous Doppler showed nonocclusive DVT greater on the right than the left of uncertain age. A CT angio at that time was negative. He was admitted again from February 22 through February 25 with chest pain. He is now back again with similar complaints. The patient tells me that pain is typically in the middle of the chest. While it does get worse with deep breathing, he states that also gets worse if he is moving or bending or twisting or doing anything else with movement. Thus, I suspect this pain is more likely musculoskeletal in origin. He feels better than he did last night. He has chronic shortness of breath. This has been for years. He recalls having a pulmonary function test about 2004, but not since then. He states he is winded walking from room to room. He lives by himself in an apartment. He does not have any steps, he has an elevator. He is very sedentary. The patient states he did cough up some blood 4 or 5 days ago. It was relatively small quantities. It was dark. He did at 4 or 5 times. The size of each expectoration would be about the size of the nail on his little finger. He relates that he has had this intermittently over the years. He estimates this has occurred about 20 times. He has never coughed up a significant amount of blood. He obviously has had approximately 4 CAT scans in the past 2 months that have not shown any masses other than he has a history of a small nodule in the right upper lobe that has been unchanged over time. The patient has been on long-term Lovenox therapy. It is not clear exactly why that drug was chosen initially. The reports I saw from old chart suggested that the patient refused Coumadin. Another note states that the patient was told that Coumadin could not be used. He has been giving himself shots. He was recently evaluated by hematology at [facility] and they are referring him to a non clinical advisor in [place]. The patient does have a history of having an inferior vena cava filter placed. He also has had stenting done in the inferior vena cava. 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 When I asked him where these were done, he indicated they were done in numerous places. The patient has been evaluated for coronary artery disease. Reportedly, he has had 10 cardiac catheterizations and according to the patient, none of them show coronary artery disease. PAST SURGICAL HISTORY: 1. Appendectomy. 2. Pilonidal cyst removal. 3. Hernia repair. 4. Cataract surgery bilaterally. 5. Tonsillectomy. 6. Low back surgery. 7. IVC filter. 8. Cardiac catheterization x10. PAST MEDICAL HISTORY: 1. Urinary tract infections. 2. Spinal stenosis. 3. Diabetes mellitus. 4. Parkinson's disease. 5. Reflux. 6. Gout. 7. Lung nodule as noted. 8. Pulmonary embolism as noted. 9. BPH. 10. The chart lists antiphospholipid syndrome, but the patient denies being aware of that. SOCIAL HISTORY: Tobacco never. ETOH -- occasional. FAMILY HISTORY: Mother of cancer and the patient did not know what the primary cancer was. She also had heart disease. Father of prostate cancer and heart disease. ALLERGIES: LISTED ALLERGIES TO PENICILLINS, CEPHALOSPORINS, SULFA, AND LISINOPRIL. The lisinopril was thought to cause a cough. However, it was stopped about 2 months ago and his cough has not changed according to the patient. He describes having a daily productive cough. MEDICATIONS AT HOME: 1. Allopurinol 100 mg daily. 2. Amantadine 100 mg b.i.d. 3. Vitamin C daily. 4. Carbidopa/levodopa 50/200 one b.i.d. 5. Dutasteride 0.5 mg daily. 6. Lovenox 120 mg subQ q. 12 hours. 7. Ferrous sulfate 1 daily. 8. Fluoxetine 40 mg daily. 9. Lasix 80 mg daily. 10. Lantus 30 units subQ b.i.d. 11. Isosorbide mononitrate 30 mg daily. 12. Losartan 50 mg daily. 13. Myrbetriq 50 mg daily. 14. Prilosec 20 mg daily. 15. Lyrica 300 mg b.i.d. 16. Simvastatin 20 mg daily. 17. Aldactone 25 mg b.i.d. 18. Tamsulosin 0.4 mg daily. 19. Colchicine p.r.n. 20. Oxycodone/acetaminophen 5/325, 1-2 tabs q. 4 hours p.r.n. pain. 21. Zolpidem 10 mg at bedtime. REVIEW OF SYSTEMS: The patient's energy level is low. There has been no syncope. He denies nasal congestion. He denies sore throat. He has heartburn on a daily basis despite taking the medication. The patient states his appetite is poor. He denies bowel problems, however. He has urinary issues. He urinates frequently. He has had indwelling catheter in the past, but he kept getting urinary infections with it. At times, he has difficulty holding his urine. The patient has chronic edema. He was recently told of sleep apnea. He had a sleep study on November 17 showing an apnea-hypopnea index of 14.6 with a modest of periodic limb movements. He was just placed on CPAP at home about 10 days ago. I am assuming this is auto CPAP. He states he has had trouble tolerating the pressure. He does not know how to set a ramp. He claims that his mask is torn after just a short period of time. He could not tell me who his home care company is. The remainder of review of systems is otherwise negative. Ten systems reviewed. PHYSICAL EXAMINATION: VITAL SIGNS: The patient is a 62-year-old male who was cooperative, alert and oriented. He appeared in no distress. He did not cough during this exam. He did not appear dyspneic at rest. His BMI is 42. Temperature is 36.5. EYES: Eye exam showed implants. NOSE: Nares were mildly congested. MOUTH: Exam showed teeth to be in poor repair. Pharynx was a Mallampati grade 2. NECK: He has a fairly large neck. No lymph nodes were palpable. CHEST: Shows somewhat diminished excursions. HEART: The heart rate is 83 per minute. The rhythm is regular. Blood pressure is 152/71. LUNGS: Lung rand were clear bilaterally. No wheezes, rales, or rhonchi were heard. Oxygen saturation on room air is 96%. ABDOMEN: Obese. It was soft. He complains of tenderness to palpation in the right lower abdominal region. Palpating his abdomen also gave him the urge to urinate and he had stopped urinating almost immediately. EXTREMITIES: Revealed +1 edema in both lower extremities. There was no cyanosis or clubbing. LABORATORY DATA: The patient had a chest x-ray done yesterday that showed no acute changes. CT angio of the chest was done today. This showed no evidence for pulmonary embolism. There was a stable 6-mm nodule in the right upper lobe that has been followed chronically with no change. White count was 7.06, hemoglobin 14 and platelets 156,000. Coags are normal. Electrolytes show sodium 139, potassium 4.3, chloride 104, and bicarbonate 24. BUN was 21 with a creatinine of 1.1. Blood sugar was 215. Alkaline phosphatase was elevated at 133. AST was low at 10 and ALT was normal at 24. Troponin was negative. Total protein 7.6. Albumin 3.4 and globulin 4.2. Flu test was negative. IMPRESSIONS: 1. Atypical chest pain. 2. Hemoptysis -- small quantities -- recurrent -- occurring on anticoagulation. 3. Chronic cough. 4. Obstructive sleep apnea - just starting on CPAP. 5. Obesity. 6. Gastroesophageal reflux disease. COMMENTS AND RECOMMENDATIONS: The patient clearly does not have recurring pulmonary embolic disease at present. He has been maintained on the Lovenox. He has seen a specialist at [facility] and will be seeing someone else in [place]. They will be deciding whether it is best that he be maintained on Lovenox or if he should be maintained perhaps on Xarelto or Eliquis. I do not believe he needs chronic long-term anticoagulation therapy. I do believe the hemoptysis has been significant. Clearly, there is no evidence of any lung mass over the numerous CAT scans he has had just in the past 2 months. His chest pain by history seems more musculoskeletal. He has had reportedly 10 cardiac catheterizations that have not shown any coronary artery disease and thus clearly it seems that there is not a cardiac basis for his chest pain in all likelihood, I would check an ELVIS to see if he could potentially have medication induced lupus that might be causing some symptoms. The patient is open to a trial of BiPAP tonight. I will order a BiPAP at 10/5 and we can see how he makes out. If the patient stays stable, I have no objection to discharge whenever desired. I did tell the patient that after discharge, he should contact his home care company about getting a different mask. I am assuming he is on auto CPAP in light of the fact he did not have a second sleep study. Tonight, we can see if he tolerates BiPAP much better than he with CPAP. Thank you for asking me to assist in his care. SAIGE
[2017-03-08] MEDS: ONDANSETRON INJ 2 MG/ML 2 ML VIAL IV PRN (15:53)
--- NOTE | 2017-03-08 16:02 | Progress Note ---
Progress Note Date of Service Mar 08, 2017. Progress Note seen in f/u from early AM admission chest pain - L sided worse w palpation. L sided anterior chest wall/ ribs high tone/tender/decreased ROM - direct myofascial - improved tissue texture pt tolerated well a/p chest pain - agree w pulmonary probably rib related rib somatic dysfunction - OMT as above, voltaren gel to painful areas sob - likely multifactorial. pulmonary ordered CPAP for tonight, will order PFTs to assess pulmonary status, recent echo noted. ?how much is weight and/or deconditioning, ?how much is sensation of SOB from pain from ribs restricting breathing?
[2017-03-08] MEDS: DICLOFENAC SOD 1% GEL 100 GM TUBE EXT SCH ×2 (16:36→21:35)
--- NOTE | 2017-03-08 18:41 | PULMONARY PROGRESS NOTE ---
DATE: 03/08/2017 ADDENDUM This is a correction to the prior note on this patient under comments and recommendations. RECOMMENDATIONS: I do believe he needs chronic long-term anticoagulation therapy. I do not believe that the hemoptysis has been significant.
[2017-03-08] MEDS: TAMSULOSIN HCL 0.4 MG CAP PO SCH (21:34)
[2017-03-08] MEDS: SIMVASTATIN 20 MG TAB PO SCH (21:35)
[2017-03-08] MEDS: INSULIN GLARGINE SOLOSTAR 100 UNITS/ML 3 ML PEN SC SCH (21:39)
[2017-03-09] VITALS (11 sets, daily range): BP systolic 103–150; BP diastolic 69–83; PULSE 77–121; TEMP 36.3–36.7; O2SAT 91–95
[2017-03-09] MEDS: DICLOFENAC SOD 1% GEL 100 GM TUBE EXT SCH ×4 (07:45→20:35)
[2017-03-09] MEDS: LOSARTAN POTASSIUM 50 MG TAB PO SCH (07:45)
[2017-03-09] MEDS: ISOSORBIDE MONONITRATE 30 MG TABCR PO SCH (07:45)
[2017-03-09] MEDS: FUROSEMIDE 80 MG TAB PO SCH (07:45)
[2017-03-09] MEDS: ALLOPURINOL 100 MG TAB PO SCH (07:45)
[2017-03-09] MEDS: FLUOXETINE HCL 20 MG CAP PO SCH (07:46)
[2017-03-09] MEDS: SPIRONOLACTONE 25 MG TAB PO SCH ×2 (07:46→16:57)
[2017-03-09] MEDS: AMANTADINE HCL 100 MG CAP PO SCH ×2 (07:46→20:38)
[2017-03-09] MEDS: ASCORBIC ACID 500 MG TAB PO SCH (07:46)
[2017-03-09] MEDS: CARBIDOPA/LEVODOPA 50/200MG EXT REL TAB PO SCH ×2 (07:46→20:35)
[2017-03-09] MEDS: MIRABEGRON ER 25 MG TAB PO SCH (07:46)
[2017-03-09] MEDS: ENOXAPARIN 120 MG/0.8 ML SYR SC SCH ×2 (07:46→20:37)
[2017-03-09] MEDS: PREGABALIN 150 MG CAP PO SCH ×2 (08:46→20:34)
[2017-03-09] MEDS: INSULIN ASPART 100 UNITS/ML 3 ML PEN SC SCH ×4 (08:51→20:42)
[2017-03-09] MEDS: INSULIN GLARGINE SOLOSTAR 100 UNITS/ML 3 ML PEN SC SCH ×2 (08:52→20:43)
[2017-03-09] MEDS: ONDANSETRON INJ 2 MG/ML 2 ML VIAL IV PRN ×2 (11:38→20:34)
[2017-03-09] MEDS: MoRPHine SULFATE 2 MG/ML CARP IV PRN ×3 (12:03→20:34)
--- NOTE | 2017-03-09 15:31 | Gastrointestinal Consultation ---
Gastrointestinal Consultation Date of Consultation: Mar 09, 2017 Attending Physician: Dr. Denise Consulting Physician: Dr. Mg Reason for Consultation: Dysphagia, belching History of Present Illness Patient is a 62 year old male with a history of PE admitted with hemoptysis ( now resolved) and chest pain which the patient felt could be related to PE. He did have a negative CT of the chest however and has been on anticoagulation in this regard. He has been seen by pulmonology. During this admission, the patient states he did have a single episode of nausea with vomiting. Additionally, he reports very occasional dysphagia to solids stating "I have to drink to get it down". The patient states he does have persistent pyrosis on a nearly daily basis despite use of Omeprazole as an outpatient. No odynophagia. The only abdominal pain he reports is at the site of prior hernia repair which is in the left lower quadrant. He is having some chest pressure intermittently and belching. H&H is normal. He has never undergone any prior evaluation for GERD in the past. He does have a pending gall bladder ultrasound which was ordered today. He is not on any acid suppressive therapy in the hospital. He denies any diarrhea, constipation, melena, hematochezia or significant weight loss although he does report a poor appetite lately. He did eat approximately 85 % of lunch. Past Medical/Surgical History Medical Problems: (1) Back pain Status: Acute (2) Soni infection Status: Acute (3) Cephalgia Status: Acute (4) Chest pain Status: Acute (5) Chest pain, pleuritic Status: Acute (6) Complicated UTI (urinary tract infection) Status: Acute (7) Dyspnea on exertion Status: Acute (8) Elevated lactic acid level Status: Acute (9) Elevated troponin Status: Acute (10) Fall Status: Acute (11) Head trauma Status: Acute (12) Hemoptysis Status: Acute (13) History of pulmonary embolism Status: Acute (14) HTN (hypertension) Status: Acute (15) Lower abdominal pain Status: Acute (16) Neck pain Status: Acute (17) Neurogenic bladder Status: Acute (18) Non-cardiac chest pain Status: Acute (19) Pyelonephritis Status: Acute (20) Sepsis Status: Acute (21) Skin breakdown Status: Acute (22) Spinal stenosis Status: Acute (23) TIA (transient ischemic attack) Status: Acute (24) Urinary tract infection Status: Acute (25) UTI (urinary tract infection) Status: Acute (26) UTI (urinary tract infection) Status: Acute (27) Vomiting Status: Acute Past Medical History: 1. Diabetes 2. GERD 3. Gout 4. Parkinson's disease 5. PE Past Surgical History: 1. Left inguinal hernia repair. 2. Bilateral cataract surgery Family History Cancer Diabetes mellitus FH: heart disease Hypertension Negative for GI malignancy or IBD Social History Smoking Status: Never Smoker Alcohol Use: none Drug Use: none Marital Status: Housing Status: lives alone Occupation Status: retired Allergies Coded Allergies: Penicillins (Verified Allergy, Severe, 02/21/17) SEVERE RXN PER PT Cephalosporins (Verified Allergy, Unknown, 02/21/17) Sulfamethoxazole w/Trimethoprim (Verified Allergy, Unknown, ., 02/21/17) TAKES LASIX AT HOME Lisinopril (Verified Adverse Reaction, Intermediate, Cough, 02/21/17) Current Medications Home Meds and Scripts Medications Dose Route/Sig Max Daily Dose Days Date Category Dose Instructions Lovenox (Enoxaparin Sodium) 120 Mg/0.8 Ml Inj 120 Mg SC Q12 1 02/25/17 Rx Prilosec (Omeprazole) 40 Mg Cap 1 Cap PO DAILY 30 02/21/17 Reported Ambien (Zolpidem Tartrate) 10 Mg Tab 10 Mg PO HS PRN 01/23/17 Reported Colchicine 0.6 Mg Tab 0.6 Mg PO DAILY PRN 01/23/17 Reported Aldactone (Spironolactone) 25 Mg Tab 25 Mg PO BID 01/23/17 Reported Flomax (Tamsulosin Hcl) 0.4 Mg Cap 0.4 Mg PO DAILY 01/23/17 Reported Cozaar (Losartan Potassium) 50 Mg Tab 50 Mg PO DAILY 01/23/17 Reported Iron (Ferrous Sulfate) 325 Mg Tab 1 Tab PO DAILY 01/23/17 Reported Avodart (Dutasteride) 0.5 Mg Cap 0.5 Mg PO DAILY 01/23/17 Reported Prozac (Fluoxetine HCl) 40 Mg Cap 40 Mg PO DAILY 01/23/17 Reported Lasix (Furosemide) 80 Mg Tab 80 Mg PO DAILY 01/23/17 Reported ALSO CAN TAKE TWICE DAILY NEEDED FOR EDEMA Isosorbide Mononitrate ER (Isosorbide Mononitrate) 30 Mg Tabcr 30 Mg PO QAM 01/23/17 Reported Myrbetriq Er (Mirabegron) 50 Mg Tab 50 Mg PO DAILY 01/02/17 Reported Percocet 5MG/325MG (Oxycodone/Acetaminophen) Tab 1-2 Tablets PO Q4H PRN 01/02/17 Reported Zocor (Simvastatin) 20 Mg Tab 20 Mg PO QPM 11/12/16 Reported Vitamin C (Ascorbic Acid) 500 Mg Tab 500 Mg PO QAM 05/14/16 Reported Lantus (Insulin Glargine) 100 Unit/Ml Inj 30 Units SC BID 05/14/16 Reported Sinemet Cr 50MG/200MG (Carbidopa/Levodopa) Tabcr 1 Tab PO BID 02/24/16 Reported Amantadine HCl 100 Mg Cap 100 Mg PO BID 02/24/16 Reported Lyrica (Pregabalin) 300 Mg Cap 300 Mg PO BID 02/24/16 Reported Allopurinol 100 Mg Tab 100 Mg PO DAILY 02/24/16 Reported Review of Systems Constitutional: No fatigue Eyes: No problem reported ENT: + see HPI Respiratory: + see HPI Cardiac: + see HPI Abdomen: + see HPI Musculoskeletal: No problem reported Male : No problem reported Neuro: No problem reported Psych: No problem reported Heme: No problem reported Endo: No problem reported Skin: No problem reported Physical Exam Date Time Temp Pulse Resp B/P (MAP) Pulse Ox O2 Delivery O2 Flow Rate FiO2 03/09/17 15:13 36.3 87 22 120/77 (91) 95 Room Air 03/09/17 12:00 Room Air 03/09/17 11:48 36.4 102 22 123/78 (93) 93 Room Air 03/09/17 10:57 36.5 115 20 120/74 (89) 95 Room Air 03/09/17 10:36 121 94 03/09/17 08:00 Room Air 03/09/17 07:43 36.5 83 20 122/77 (92) 95 CPAP 03/09/17 04:00 Room Air 03/09/17 03:01 36.5 77 18 129/72 (91) 91 CPAP 03/09/17 00:06 36.7 79 18 150/80 (103) 95 CPAP 03/09/17 00:00 Room Air 03/08/17 23:20 36.4 74 18 135/80 (98) 93 BiPAP 03/08/17 22:09 76 13 97 Room Air 03/08/17 22:09 76 97 03/08/17 20:50 Room Air 03/08/17 19:50 36.9 83 18 133/76 (95) 96 Room Air 03/08/17 16:00 Room Air 03/08/17 15:55 36.7 115 18 115/79 (91) 95 Room Air General Appearance: WD/WN, no apparent distress Eyes: EOMI ENT: hearing grossly normal Neck: supple Respiratory/Chest: lungs clear, normal breath sounds, no respiratory distress Cardiovascular: regular rate, rhythm Abdomen: normal bowel sounds, soft, + tenderness (LLQ) Extremities: no pedal edema Neurologic/Psych: alert, normal mood/affect, oriented x 3 Skin: normal color, warm/dry Laboratory Results Last 24 Hours Test 03/08/17 16:31 03/08/17 20:21 03/09/17 07:30 Bedside Glucose 166 mg/dl 174 mg/dl 170 mg/dl Impression Patient is a 62 year old male with a history of PE admitted with hemoptysis ( now resolved) now with a single episode of n/v, GERD and intermittent dysphagia. Plan 1. Recommend UGI series today for further evaluation. 2. Start Pantoprazole 40 mg daily 1/2 hour prior to breakfast and Ranitidine 150 mg at bedtime. 3. Await gall bladder ultrasound as ordered. 4. Additional recommendations pending results of testing. Thank you for allowing us to participate in the care of this pleasant patient. If you have any questions or concerns, please do not hesitate to contact us. Agree with FABIAN Marques as above Abd: Soft, NT, ND, +BS Continue current therapy UGI series tomorrow
--- NOTE | 2017-03-09 16:37 | Pulmonology Progress Note ---
Pulmonary Progress Note Date of Service Mar 09, 2017. Attending Dr. Wills Subjective Patient is a 62 yo obese male who presented to the ED with worsening breathing and chest pain. The patient has had multiple episodes recently of chest pain, respiratory problems, and concern for PE. The patient is on chronic Lovenox and is being evaluated for different treatment in [place] according to previous records. The patient has also had on and off small amounts of hemoptysis. Labs reviewed- Glucose today 170. INR 03/07 1.0. ELVIS Pending. Chest CTA was negative for PE. Stable 6 mm nodule of RUL noted. Images viewed. Patient states that his breathing is "about the same" today, but he did tolerate BiPAP well last night. The patient did a trial of BiPAP, and he feels that it was better than his typical home CPAP. He feels he slept better. GI evaluated the patient and recommend UGI series along with Gallbladder U/S. U/ S is pending. Patient continues to have some right sided chest/upper abdominal pain. Objective General: Patient is awake, alert, cooperative, and in no acute distress. Obese. Head: Normocephalic, Atraumatic. ENT: PERRLA, No discharge, EOMI, Sclera normal Neck: Normal ROM. Trachea midline. No stridor Respiratory: Very mild coarse breath sounds throughout. No respiratory distress. No accessory muscle use. Cardiovascular: Regular rate and rhythm. Abdomen: Nontender to palpation. Normal bowel sounds hear throughout. No guarding. Abdomen is soft and nontender Extremities: Very mild edema of the bilateral lower extremities. Neuro: Alert. CN II-XII grossly intact. Sensation and motor function grossly intact. Psych: Mood and affect are normal. Assessment & Plan Patient with Chest Pain, Hemoptysis, Chronic cough, YANN, Obesity, and GERD. -Patient tolerated BiPAP well- preferred over CPAP. Therefore recommend change to BiPAP for further YANN treatment with pulmonary/sleep medicine follow up as outpatient -GI workup pending in regards to RUQ pain versus atypical chest pain -No current hemoptysis -Chest pain does not appear to be pulmonary in nature Pulm will sign off. Please call with questions. Thank you Data Medications: Current Inpatient Medications Medications (Trade) Dose Ordered Sig/Apryl Route Start Time Stop Time Status Last Admin Dose Admin Ioversol (Optiray 320) 100 ml UD PRN IV 03/08/17 01:00 03/12/17 00:59 Acetaminophen (Tylenol Tab) 650 mg Q4H PRN PO 03/08/17 02:45 04/07/17 02:44 Allopurinol (Zyloprim Tab) 100 mg DAILY PO 03/08/17 09:00 04/07/17 08:59 03/09/17 07:45 100 MG Amantadine HCl (Symmetrel Cap) 100 mg BID PO 03/08/17 09:00 04/07/17 08:59 03/09/17 07:46 100 MG Ascorbic Acid (Vitamin C Tab) 500 mg QAM PO 03/08/17 09:00 04/07/17 08:59 03/09/17 07:46 500 MG Carbidopa/Levodopa (Sinemet Cr 50/ 200MG Tab) 1 tab BID PO 03/08/17 09:00 04/07/17 08:59 03/09/17 07:46 1 TAB Enoxaparin Sodium (Lovenox Inj) 120 mg Q12 SC 03/08/17 09:00 04/07/17 08:59 03/09/17 07:46 120 MG Fluoxetine HCl (Prozac Cap) 40 mg DAILY PO 03/08/17 09:00 04/07/17 08:59 03/09/17 07:46 40 MG Furosemide (Lasix Tab) 80 mg DAILY PO 03/08/17 09:00 04/07/17 08:59 03/09/17 07:45 80 MG Isosorbide Mononitrate (Imdur Ext Rel Tab) 30 mg QAM PO 03/08/17 09:00 04/07/17 08:59 03/09/17 07:45 30 MG Losartan Potassium (coZAAR TAB) 50 mg DAILY PO 03/08/17 09:00 04/07/17 08:59 03/09/17 07:45 50 MG Mirabegron (Myrbetriq Er) 50 mg DAILY PO 03/08/17 09:00 04/07/17 08:59 03/09/17 07:46 50 MG Pregabalin (Lyrica Cap) 300 mg BID PO 03/08/17 09:00 04/07/17 08:59 03/09/17 08:46 300 MG Simvastatin (Zocor Tab) 20 mg QPM PO 03/08/17 21:00 04/07/17 20:59 03/08/17 21:35 20 MG Spironolactone (Aldactone Tab) 25 mg BID17 PO 03/08/17 09:00 04/07/17 08:59 03/09/17 07:46 25 MG Tamsulosin HCl (Flomax Cap) 0.4 mg HS PO 03/08/17 21:00 04/07/17 20:59 03/08/17 21:34 0.4 MG Zolpidem Tartrate (Ambien Tab) 10 mg HS PRN PO 03/08/17 02:45 04/07/17 02:44 Albuterol/ Ipratropium (Duoneb) 3 ml Q4 PRN INH 03/08/17 02:45 04/07/17 02:44 Ondansetron HCl (Zofran Inj) 4 mg Q6H PRN IV 03/08/17 03:00 04/07/17 02:59 03/09/17 11:38 4 MG Insulin Aspart (novoLOG ASPART) SLIDING SCALE If C... ACHS SC 03/08/17 06:30 04/07/17 06:59 03/09/17 12:43 6 UNITS Glucose (Glucose 40% Gel) UD PRN PO 03/08/17 03:00 04/07/17 02:59 Glucose (Glucose Chew Tab) 1 tabs UD PRN PO 03/08/17 03:00 04/07/17 02:59 Dextrose (Dextrose 50% 50ML Syringe) 50 ml UD PRN IV 03/08/17 03:00 04/07/17 02:59 Glucagon (Glucagon Inj) 1 mg UD PRN SQ 03/08/17 03:00 04/07/17 02:59 Miscellaneous (Iv Fluids Completed) 1 ea PRN PRN N/A 03/08/17 04:45 03/08/18 04:44 Insulin Glargine (Lantus Solostar Pen) 35 units BID SC 03/08/17 21:00 04/07/17 08:59 03/09/17 08:52 35 UNITS Diclofenac Sodium (Voltaren 1% Top Gel) 1 appln QID EXT 03/08/17 17:00 04/07/17 16:59 03/09/17 12:43 1 APPLN Oxycodone/ Acetaminophen (Percocet 5-325mg Tab) 2 tab Q6H PRN PO 03/09/17 11:45 03/22/17 02:44 Diphenhydramine HCl (Benadryl Cap) 25 mg Q6 PRN PO 03/09/17 11:45 04/08/17 11:44 Morphine Sulfate (MoRPHine SULFATE INJ) 2 mg Q2H PRN IV 03/09/17 11:45 03/23/17 11:44 03/09/17 12:03 2 MG Vital Signs: Date Time Temp Pulse Resp B/P (MAP) Pulse Ox O2 Delivery O2 Flow Rate FiO2 03/09/17 12:00 Room Air 03/09/17 11:48 36.4 102 22 123/78 (93) 93 Room Air 03/09/17 10:57 36.5 115 20 120/74 (89) 95 Room Air 03/09/17 10:36 121 94 03/09/17 08:00 Room Air 03/09/17 07:43 36.5 83 20 122/77 (92) 95 CPAP 03/09/17 04:00 Room Air 03/09/17 03:01 36.5 77 18 129/72 (91) 91 CPAP 03/09/17 00:06 36.7 79 18 150/80 (103) 95 CPAP 03/09/17 00:00 Room Air 03/08/17 23:20 36.4 74 18 135/80 (98) 93 BiPAP 03/08/17 22:09 76 13 97 Room Air 03/08/17 22:09 76 97 03/08/17 20:50 Room Air 03/08/17 19:50 36.9 83 18 133/76 (95) 96 Room Air 03/08/17 16:00 Room Air 03/08/17 15:55 36.7 115 18 115/79 (91) 95 Room Air Laboratory Results: Last 24 Hours Test 03/08/17 16:31 03/08/17 20:21 03/09/17 07:30 Bedside Glucose 166 mg/dl 174 mg/dl 170 mg/dl
[2017-03-09] MEDS: PANTOprazole SOD 40 MG TAB PO SCH (16:49)
[2017-03-09] MEDS: RANITIDINE HCL 150 MG TAB PO SCH (20:36)
[2017-03-09] MEDS: SIMVASTATIN 20 MG TAB PO SCH (20:36)
[2017-03-09] MEDS: TAMSULOSIN HCL 0.4 MG CAP PO SCH (20:37)
[2017-03-10] VITALS (7 sets, daily range): BP systolic 122–139; BP diastolic 70–84; PULSE 80–100; TEMP 36.6–36.8; O2SAT 92–97
--- NOTE | 2017-03-10 00:07 | Hospitalist Progress Note ---
Hospitalist Progress Note Date of Service Mar 09, 2017. Subjective Pt evaluation today including: conversation w/ patient Pt had episode of N/V after walking with PT today. He reports he is having one of his almost chronic daily migraines that is throbbing, 10/10 in severity, all over his head, associated with N/V, +photo and phonophobia, is worse with exertion. He has had these migraines for years, but feels they have increased in frequency over the last several months. He takes Percocet at home for his migraines. Reports Imitrex worked well in the past but he has stopped seeing his Neurologist and doesn't think his PCP will prescribe him Imitrex for some reason. He cannot recall ever being on a daily prophylactic med for migraines. last MRI brain October 2016 was without any significant abnormality. Pt also describes many months of daily pressure building in his substernal region that is relieved with belching. When he gets this, he also feels more SOB. This is what brought him to the hospital this admission when it got worse than usual. He has only tried taking Percocet for it, but nothing else, no antacids. He does not note a relationship to eating, and the pressure comes on at rest or with exertion. He also reports dysphagia. Denies melena or hematochezia. No hematemesis. All Other Systems: Reviewed and Negative Objective Vital Signs Date Time Temp Pulse Resp B/P (MAP) Pulse Ox O2 Delivery O2 Flow Rate FiO2 03/09/17 21:55 90 95 21 03/09/17 21:29 36.7 95 18 118/83 (95) 93 Room Air 03/09/17 20:00 95 Room Air 03/09/17 16:00 95 Room Air 03/09/17 15:13 36.3 87 22 120/77 (91) 95 Room Air 03/09/17 12:00 Room Air 03/09/17 11:48 36.4 102 22 123/78 (93) 93 Room Air 03/09/17 10:57 36.5 115 20 120/74 (89) 95 Room Air 03/09/17 10:36 121 94 03/09/17 08:00 Room Air 03/09/17 07:43 36.5 83 20 122/77 (92) 95 CPAP 03/09/17 04:00 Room Air 03/09/17 03:01 36.5 77 18 129/72 (91) 91 CPAP 03/09/17 00:06 36.7 79 18 150/80 (103) 95 CPAP 03/09/17 00:00 Room Air Physical Exam General Appearance: WD/WN, no apparent distress Eyes: normal inspection, sclerae normal ENT: hearing grossly normal Neck: trachea midline Respiratory/Chest: lungs clear, normal breath sounds, no respiratory distress, no accessory muscle use Cardiovascular: regular rate, rhythm, no edema, no murmur Abdomen: normal bowel sounds, non tender, soft, no organomegaly Extremities: non-tender, normal inspection, no pedal edema, no calf tenderness Neurologic/Psychiatric: alert, + depressed affect Skin: normal color, warm/dry, no rash Laboratory Results Last 24 Hours Test 03/09/17 07:30 03/09/17 11:40 03/09/17 16:56 03/09/17 20:20 Bedside Glucose 170 mg/dl 177 mg/dl 195 mg/dl 173 mg/dl Assessment and Plan Pt is a 62 yo male with a h/o a Hypercoagulable state with history of recurrent deep venous thrombosis and saddle pulmonary embolism in October 2014 for which he has an indwelling inferior vena cava filter and is on chronic Lovenox, Parkinson 's disease, Hypertension with hypertensive heart disease, Obesity, 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 SOB, Chest pressure--> seems to be GI related. With dysphagia as well. Also with some possible reduced RV function/Chronic right sided systolic and LV diastolic dysfunction contributing as well -consult GI to see about need for EGD -started on PPI, H2 vanna -CPAP at nighttime -check RUQ US to see if a=having GB issues as cause -PFTs are ordered but not done yet Chronic daily migraines-worsening in frequency, taking percocet inappropriately for headaches at home -MRI brain 10/2016 ok -Consult Neuro for improved control of migraines-may need daily prophylaxis and outpt follow up with Neuro for PD and migraines -try benadryl and morphine for now ?CAD/hypertension/chronic combined systolic and diastolic CHF-- serial cardiac enzymes negative x 2 Continue furosemide 80 mg by mouth daily, Imdur 30 mg by mouth every morning, losartan potassium 50 mg by mouth daily, and spironolactone 25 mg by mouth twice a day. He did have an echocardiogram performed during last admission which showed normal LV fxn, mildly reduced RV function, and diastolic dysfunction Pulmonary embolism history/DVT history/antiphospholipid syndrome/status post IVC filter/chronic anticoagulation with Lovenox/Minimal hemoptysis/Pulm nodule-- Continue Lovenox 120 mg subcutaneous every 12 hours. CTA of chest in the ED was negative for PE or aortic dissection. Lower extremity venous Dopplers last admission showed chronic DVT. -continue duonebs every 4 hours when necessary. Consult pulmonology for their opinion regarding contribution to his subjective symptoms of shortness of breath--> recommended BiPAP instead of CPAP for nocturnal use--> will need to f/u with Dr. Cody as outpt -for hemoptysis, seems to have resolved, Pulm does not recommend any further evaluation -needs to have Pulm Nodule followed routinely Diabetes mellitus II--glucose readings somewhat elevated but acceptable, last HgbA1C 6.1% in 11/2016 Continue basal bolus insulin and adjust dose as needed -glucose checks -check HgbA1C Hyperlipidemia--continue simvastatin 20 no grams by mouth every evening. Parkinson's disease-- continue carbidopa/levodopa CR 50/200, 1 by mouth twice a day and amantadine 100 mg by mouth twice a day. BPH/bladder spasm-- Continue Avodart 0.5 mg by mouth daily, Myrbetriq ER 50 mg by mouth daily, and tamsulosin 0.4 mg by mouth at bedtime. Anxiety/depression/neuropathy-- continue fluoxetine 40 mg by mouth daily and Lyrica GERD-- continue PPI, H2 vanna Gout-- Continue allopurinol 100 mg by mouth daily. DVT Proph-Lovenox Dispo- to home when medically stable
[2017-03-10 06:30] LABS: BASO % 0.3 %; BASO ABS # 0.02 K/uL (0-0.2); COMPLETE YES; EOS % 3.2 %; HEMATOCRIT 39.9 % (42-52); IG% 0.4 %; LYMPH % 28.1 %; LYMPH ABS # 1.95 K/uL (1.2-3.4); MEAN CELL VOLUME 89.5 fL (80-100); MEAN CORPUSCULAR HEMOGLOBIN 28.7 pg (25-34); MEAN CORPUSCULAR HGB CONC 32.1 g/dl (32-36); MONO % 5.3 %; NEUT % 62.7 %; PLATELET COUNT 176 K/uL (130-400); RED BLOOD COUNT 4.46 M/uL (4.7-6.1); WHITE BLOOD COUNT 6.95 K/uL (4.8-10.8)
[2017-03-10 07:00] LABS: ESTIMATED AVERAGE GLUCOSE 180 mg/dl; HA1C FLAG Normal (Normal)
[2017-03-10 07:01] LABS: CALCIUM 8.6 mg/dl (8.5-10.1); CREATININE 1.6 mg/dl (0.60-1.40); MAGNESIUM 2.3 mg/dl (1.8-2.4); POTASSIUM 3.7 mmol/L (3.5-5.1)
--- NOTE | 2017-03-10 07:16 | DIAGNOSTIC IMAGING REPORT ---
ABDOMINAL ULTRASOUND, RIGHT UPPER QUADRANT HISTORY: belching, chest pressure. COMPARISON: Abdominal ultrasound 10/21/2016. FINDINGS: Pancreas: Obscured by overlying bowel gas. Liver: No hepatic masses. The left hepatic lobe was not well visualized. Gallbladder: No gallbladder wall thickening. No gallstones. CBD: 5 mm. Right kidney: No hydronephrosis. IMPRESSION: Normal gallbladder. No gallstones. Electronically signed by: Silver Rhodes M.D. 03/10/2017 7:15 AM Dictated Date/Time: 03/10/2017 7:13 AM
--- NOTE | 2017-03-10 09:36 | Neurology Consultation ---
Neurology Consultation Date of Consultation: Mar 10, 2017. Attending Physician: Renee Denise MD Primary Care Physician: Reza Ocasio Jr,D.O. Reason for Consultation: Headache, history of Parkinson's disease History of Present Illness Source: patient, hospital records The patient is a 62-year-old male who presented to [facility] on March 07 complaining of cough, shortness of breath, and chest pain. He has remote history of pulmonary embolism, recurrent hemoptysis, and obstructive sleep apnea. He has been seen by pulmonology. This patient also has a history of Parkinson's disease that was diagnosed by Dr. Orozco about 3 years ago. He is prescribed a low-dose of Sinemet and is also prescribed amantadine. He indicates that his Parkinson's symptoms consist largely of either left or right , variable, upper extremity tremor. He denies having significant problems with ambulation, slowness, or rigidity. He also has been complaining of frequent headaches for the past few months for which she has been taking Percocet. He indicates that the headaches tend to be frontal in location and seem to radiate from the occipital area. He denies associated nausea but does endorse some light and sound sensitivity. He denies a history of migraine although reports that he has siblings who probably have migraine. Of note, this patient presented to [facility] in October complaining of headache and numbness. His blood pressure was significantly elevated at that time. Evaluation consisted of CT of the head, MRI of the brain, and MRA of the neck. No significant abnormalities were identified. He was not seen by neurology at that time. A further interest, this patient's blood pressure at the time of his most recent admission was also significantly elevated, 195/91. His blood pressure has been much better controlled over the past day and a half, however. He denies experiencing any focal weakness, or numbness recently. Past Medical/Surgical History Medical Problems: (1) Back pain Status: Acute (2) Soni infection Status: Acute (3) Cephalgia Status: Acute (4) Chest pain Status: Acute (5) Chest pain, pleuritic Status: Acute (6) Complicated UTI (urinary tract infection) Status: Acute (7) Dyspnea on exertion Status: Acute (8) Elevated lactic acid level Status: Acute (9) Elevated troponin Status: Acute (10) Fall Status: Acute (11) Head trauma Status: Acute (12) Hemoptysis Status: Acute (13) History of pulmonary embolism Status: Acute (14) HTN (hypertension) Status: Acute (15) Lower abdominal pain Status: Acute (16) Neck pain Status: Acute (17) Neurogenic bladder Status: Acute (18) Non-cardiac chest pain Status: Acute (19) Pyelonephritis Status: Acute (20) Sepsis Status: Acute (21) Skin breakdown Status: Acute (22) Spinal stenosis Status: Acute (23) TIA (transient ischemic attack) Status: Acute (24) Urinary tract infection Status: Acute (25) UTI (urinary tract infection) Status: Acute (26) UTI (urinary tract infection) Status: Acute (27) Vomiting Status: Acute Family History As indicated in the history of present illness, patient reports that he has several siblings with what he thinks is migraine headache. Social History Smoking Status: Never smoker Smokeless Tobacco Use: No Alcohol Use: none Drug Use: none Marital Status: Housing Status: lives alone Occupation Status: retired Allergies Coded Allergies: Penicillins (Verified Allergy, Severe, 02/21/17) SEVERE RXN PER PT Cephalosporins (Verified Allergy, Unknown, 02/21/17) Sulfamethoxazole w/Trimethoprim (Verified Allergy, Unknown, ., 02/21/17) TAKES LASIX AT HOME Lisinopril (Verified Adverse Reaction, Intermediate, Cough, 02/21/17) Current Inpatient Medications Current Inpatient Medications Medications (Trade) Dose Ordered Sig/Apryl Route Start Time Stop Time Status Last Admin Dose Admin Ioversol (Optiray 320) 100 ml UD PRN IV 03/08/17 01:00 03/12/17 00:59 Acetaminophen (Tylenol Tab) 650 mg Q4H PRN PO 03/08/17 02:45 04/07/17 02:44 Allopurinol (Zyloprim Tab) 100 mg DAILY PO 03/08/17 09:00 04/07/17 08:59 03/09/17 07:45 100 MG Amantadine HCl (Symmetrel Cap) 100 mg BID PO 03/08/17 09:00 04/07/17 08:59 03/09/17 20:38 100 MG Ascorbic Acid (Vitamin C Tab) 500 mg QAM PO 03/08/17 09:00 04/07/17 08:59 03/09/17 07:46 500 MG Carbidopa/Levodopa (Sinemet Cr 50/ 200MG Tab) 1 tab BID PO 03/08/17 09:00 04/07/17 08:59 03/09/17 20:35 1 TAB Enoxaparin Sodium (Lovenox Inj) 120 mg Q12 SC 03/08/17 09:00 04/07/17 08:59 03/09/17 20:37 120 MG Fluoxetine HCl (Prozac Cap) 40 mg DAILY PO 03/08/17 09:00 04/07/17 08:59 03/09/17 07:46 40 MG Furosemide (Lasix Tab) 80 mg DAILY PO 03/08/17 09:00 04/07/17 08:59 03/09/17 07:45 80 MG Isosorbide Mononitrate (Imdur Ext Rel Tab) 30 mg QAM PO 03/08/17 09:00 04/07/17 08:59 03/09/17 07:45 30 MG Losartan Potassium (coZAAR TAB) 50 mg DAILY PO 03/08/17 09:00 04/07/17 08:59 03/09/17 07:45 50 MG Mirabegron (Myrbetriq Er) 50 mg DAILY PO 03/08/17 09:00 04/07/17 08:59 03/09/17 07:46 50 MG Pregabalin (Lyrica Cap) 300 mg BID PO 03/08/17 09:00 04/07/17 08:59 03/09/17 20:34 300 MG Simvastatin (Zocor Tab) 20 mg QPM PO 03/08/17 21:00 04/07/17 20:59 03/09/17 20:36 20 MG Spironolactone (Aldactone Tab) 25 mg BID17 PO 03/08/17 09:00 04/07/17 08:59 03/09/17 16:57 25 MG Tamsulosin HCl (Flomax Cap) 0.4 mg HS PO 03/08/17 21:00 04/07/17 20:59 03/09/17 20:37 0.4 MG Zolpidem Tartrate (Ambien Tab) 10 mg HS PRN PO 03/08/17 02:45 04/07/17 02:44 Albuterol/ Ipratropium (Duoneb) 3 ml Q4 PRN INH 03/08/17 02:45 04/07/17 02:44 Ondansetron HCl (Zofran Inj) 4 mg Q6H PRN IV 03/08/17 03:00 04/07/17 02:59 03/09/17 20:34 4 MG Insulin Aspart (novoLOG ASPART) SLIDING SCALE If C... ACHS SC 03/08/17 06:30 04/07/17 06:59 03/09/17 20:42 1 UNITS Glucose (Glucose 40% Gel) UD PRN PO 03/08/17 03:00 04/07/17 02:59 Glucose (Glucose Chew Tab) 1 tabs UD PRN PO 03/08/17 03:00 04/07/17 02:59 Dextrose (Dextrose 50% 50ML Syringe) 50 ml UD PRN IV 03/08/17 03:00 04/07/17 02:59 Glucagon (Glucagon Inj) 1 mg UD PRN SQ 03/08/17 03:00 04/07/17 02:59 Miscellaneous (Iv Fluids Completed) 1 ea PRN PRN N/A 03/08/17 04:45 03/08/18 04:44 Insulin Glargine (Lantus Solostar Pen) 35 units BID SC 03/08/17 21:00 04/07/17 08:59 03/09/17 20:43 35 UNITS Diclofenac Sodium (Voltaren 1% Top Gel) 1 appln QID EXT 03/08/17 17:00 04/07/17 16:59 03/09/17 20:35 1 APPLN Oxycodone/ Acetaminophen (Percocet 5-325mg Tab) 2 tab Q6H PRN PO 03/09/17 11:45 03/22/17 02:44 Diphenhydramine HCl (Benadryl Cap) 25 mg Q6 PRN PO 03/09/17 11:45 04/08/17 11:44 Morphine Sulfate (MoRPHine SULFATE INJ) 2 mg Q2H PRN IV 03/09/17 11:45 03/23/17 11:44 03/09/17 20:34 2 MG Pantoprazole Sodium (Protonix Tab) 40 mg QAM PO 03/09/17 15:45 04/08/17 15:44 03/09/17 16:49 40 MG Ranitidine HCl (zANTac TAB) 150 mg HS PO 03/09/17 21:00 04/08/17 20:59 03/09/17 20:36 150 MG Review of Systems Constitutional: No fever or chills Eyes: No vision loss or diplopia ENT: No vertigo or hearing loss Cardiovascular: Chest pain as per history of present illness Respiratory: Coughing and shortness of breath as per history of present illness Musculoskeletal: No myalgias or arthralgias Neurological: As per history of present illness A full 10 point review of systems was obtained from this patient with pertinent positives and negatives described in history of present illness and otherwise listed above. All remaining systems reviewed and are negative. Physical Exam Vital Signs (Past 24 Hrs): Date Time Temp Pulse Resp B/P (MAP) Pulse Ox O2 Delivery O2 Flow Rate FiO2 03/10/17 08:05 36.6 80 18 138/76 (96) 94 Room Air 03/10/17 04:30 36.8 85 20 139/84 (102) 95 CPAP 03/10/17 04:00 BiPAP 03/10/17 00:10 36.7 82 20 122/71 (88) 94 CPAP 03/10/17 00:00 BiPAP 03/09/17 21:55 90 95 21 03/09/17 21:29 36.7 95 18 118/83 (95) 93 Room Air 03/09/17 20:00 95 Room Air 03/09/17 16:00 95 Room Air 03/09/17 15:13 36.3 87 22 120/77 (91) 95 Room Air 03/09/17 12:00 Room Air 03/09/17 11:48 36.4 102 22 123/78 (93) 93 Room Air 03/09/17 10:57 36.5 115 20 120/74 (89) 95 Room Air 03/09/17 10:36 121 94 The patient is well-developed, well-nourished, elderly male. He is lying comfortably in bed wearing a nonrebreather facemask. The patient is alert and oriented to person place and time. Recent and remote memory intact. Attention and concentration normal. Patient exhibits a normal spontaneous speech pattern as well as an age-appropriate fund of knowledge and normal vocabulary. Visual rand full to confrontation. Visual acuity normal. Pupils equal round reactive to light and accommodation. Eye movements normal. Facial sensation intact bilaterally. There is normal facial symmetry and strength. No facial droop. Hearing intact to finger rub bilaterally. Palate elevates to midline. Shoulder shrug intact bilaterally. Tongue protrudes to midline. Sensation intact to light touch, temperature, vibration, and proprioception in all 4 limbs. Deep tendon reflexes are intact and symmetrical for the arms and legs bilaterally. Plantar responses downgoing bilaterally. There is no dysdiadochokinesia or dysmetria with finger to nose or heel to mcrae bilaterally. Ophthalmoscopic examination reveals normal-appearing optic disks and posterior segments. No papilledema or hemorrhages. Carotid pulses normal bilaterally, no bruits to auscultation. Gait and station not tested due to safety concerns. Patient exhibits normal muscle strength for the arms and legs proximally and distally. Muscle tone normal throughout. No rigidity or spasticity. There is no atrophy. Patient exhibits a fairly mild bilateral upper extremity postural tremor. He does not appear to have a rest tremor or pill-rolling tremor. Laboratory Results Past 24 Hours: 03/10/17 06:15 Red Blood Count 4.46, Mean Corpuscular Volume 89.5, Mean Corpuscular Hemoglobin 28.7, Mean Corpuscular Hemoglobin Concent 32.1, Mean Platelet Volume 9.0, Neutrophils (%) (Auto) 62.7, Lymphocytes (%) (Auto) 28.1, Monocytes (%) (Auto) 5.3, Eosinophils (%) (Auto) 3.2, Basophils (%) (Auto) 0.3, Neutrophils # (Auto) 4.36, Lymphocytes # (Auto) 1.95, Monocytes # (Auto) 0.37, Eosinophils # (Auto) 0.22, Basophils # (Auto) 0.02 03/10/17 06:15 Test 03/10/17 06:15 03/10/17 07:43 White Blood Count 6.95 K/uL (4.8-10.8) Red Blood Count 4.46 M/uL (4.7-6.1) Hemoglobin 12.8 g/dL (14.0-18.0) Hematocrit 39.9 % (42-52) Mean Corpuscular Volume 89.5 fL (80-100) Mean Corpuscular Hemoglobin 28.7 pg (25-34) Mean Corpuscular Hemoglobin Concent 32.1 g/dl (32-36) Platelet Count 176 K/uL (130-400) Mean Platelet Volume 9.0 fL (7.4-10.4) Neutrophils (%) (Auto) 62.7 % Lymphocytes (%) (Auto) 28.1 % Monocytes (%) (Auto) 5.3 % Eosinophils (%) (Auto) 3.2 % Basophils (%) (Auto) 0.3 % Neutrophils # (Auto) 4.36 K/uL (1.4-6.5) Lymphocytes # (Auto) 1.95 K/uL (1.2-3.4) Monocytes # (Auto) 0.37 K/uL (0.11-0.59) Eosinophils # (Auto) 0.22 K/uL (0-0.5) Basophils # (Auto) 0.02 K/uL (0-0.2) RDW Standard Deviation 44.6 fL (36.4-46.3) RDW Coefficient of Variation 13.6 % (11.5-14.5) Immature Granulocyte % (Auto) 0.4 % Immature Granulocyte # (Auto) 0.03 K/uL (0.00-0.02) Anion Gap 6.0 mmol/L (3-11) Est Creatinine Clear Calc Drug Dose 61.9 ml/min Estimated GFR () 52.4 Estimated GFR (Non- 45.2 BUN/Creatinine Ratio 17.0 (10-20) Estimated Average Glucose 180 mg/dl Hemoglobin A1c 7.9 % (4.5-5.6) Calcium Level 8.6 mg/dl (8.5-10.1) Magnesium Level 2.3 mg/dl (1.8-2.4) Bedside Glucose 145 mg/dl (70-99) Impression This is a 62-year-old male with a history of Parkinson's disease who has been experiencing fairly frequent, intermittent, generalized headache over the past few months. His Parkinson's disease appears to be mild at this time and I do not really find rigidity or a characteristic pill-rolling rest tremor. He may have parkinsonism rather than idiopathic Parkinson's disease. In either case, however, I think his condition is stable. I believe his headaches could be related to poorly controlled hypertension or refractory coughing. As indicated in the history of present illness, he had presented to the hospital in October complaining of headache and associated numbness and was significantly hypertensive at that time as well. Although his blood pressure has been better controlled over the past 1.5 days, headache improvement may lag a few days longer. Of additional concern is this patient's frequent use of Percocet for headache control. Thus, he may also have an element of medication overuse headache syndrome. Plan Case discussed with hospitalist at bedside. I would recommend obtaining a CT of the head to exclude hemorrhage, subacute infarct, or other potential pathology that may otherwise explain his frequent headaches. If this patient's headache persists I think adding a calcium channel vanna such as verapamil to his medication regimen will potentially be useful. Again, however, I do not think I could really diagnose him with migraine at this time in the context of his recent poorly controlled hypertension and probable medication overuse headache syndrome over the past few months. I would not adjust his Parkinson's disease medications at this time. This patient will need to follow-up with Dr. Orozco, his usual neurologist, in the outpatient setting. Please contact me if I may be of further assistance.
[2017-03-10] MEDS: ASCORBIC ACID 500 MG TAB PO SCH (09:56)
[2017-03-10] MEDS: FLUOXETINE HCL 20 MG CAP PO SCH (09:56)
[2017-03-10] MEDS: MIRABEGRON ER 25 MG TAB PO SCH (09:57)
[2017-03-10] MEDS: FUROSEMIDE 80 MG TAB PO SCH (09:57)
[2017-03-10] MEDS: SPIRONOLACTONE 25 MG TAB PO SCH ×2 (09:57→17:51)
[2017-03-10] MEDS: ISOSORBIDE MONONITRATE 30 MG TABCR PO SCH (09:57)
[2017-03-10] MEDS: PANTOprazole SOD 40 MG TAB PO SCH (09:57)
[2017-03-10] MEDS: ALLOPURINOL 100 MG TAB PO SCH (09:58)
[2017-03-10] MEDS: ENOXAPARIN 120 MG/0.8 ML SYR SC SCH (09:58)
[2017-03-10] MEDS: CARBIDOPA/LEVODOPA 50/200MG EXT REL TAB PO SCH ×2 (09:58→20:38)
[2017-03-10] MEDS: LOSARTAN POTASSIUM 50 MG TAB PO SCH (09:58)
[2017-03-10] MEDS: INSULIN ASPART 100 UNITS/ML 3 ML PEN SC SCH ×4 (09:59→20:36)
[2017-03-10] MEDS: AMANTADINE HCL 100 MG CAP PO SCH ×2 (09:59→20:37)
[2017-03-10] MEDS: DICLOFENAC SOD 1% GEL 100 GM TUBE EXT SCH ×4 (10:00→20:37)
--- NOTE | 2017-03-10 10:01 | Gastroenterology Progress Note ---
Progress Note Date of Service: Mar 10, 2017 Subjective Pt evaluation today including: conversation w/ patient, physical exam, lab review, review of inpatient medication list Patient states "I am still coughing up phlegm". No significant improvement with acid suppressive therapy at this point although medications just initiated yesterday. He is awaiting an UGI study which is pending for today at 1130. No new GI complaints. Review of Systems Constitutional: No problem reported Abdomen: + see HPI Psych: No problem reported Medications Current Inpatient Medications Medications (Trade) Dose Ordered Sig/Apryl Route Start Time Stop Time Status Last Admin Dose Admin Ioversol (Optiray 320) 100 ml UD PRN IV 03/08/17 01:00 03/12/17 00:59 Acetaminophen (Tylenol Tab) 650 mg Q4H PRN PO 03/08/17 02:45 04/07/17 02:44 Allopurinol (Zyloprim Tab) 100 mg DAILY PO 03/08/17 09:00 04/07/17 08:59 03/09/17 07:45 100 MG Amantadine HCl (Symmetrel Cap) 100 mg BID PO 03/08/17 09:00 04/07/17 08:59 03/09/17 20:38 100 MG Ascorbic Acid (Vitamin C Tab) 500 mg QAM PO 03/08/17 09:00 04/07/17 08:59 03/09/17 07:46 500 MG Carbidopa/Levodopa (Sinemet Cr 50/ 200MG Tab) 1 tab BID PO 03/08/17 09:00 04/07/17 08:59 03/09/17 20:35 1 TAB Enoxaparin Sodium (Lovenox Inj) 120 mg Q12 SC 03/08/17 09:00 04/07/17 08:59 03/09/17 20:37 120 MG Fluoxetine HCl (Prozac Cap) 40 mg DAILY PO 03/08/17 09:00 04/07/17 08:59 03/09/17 07:46 40 MG Furosemide (Lasix Tab) 80 mg DAILY PO 03/08/17 09:00 04/07/17 08:59 03/09/17 07:45 80 MG Isosorbide Mononitrate (Imdur Ext Rel Tab) 30 mg QAM PO 03/08/17 09:00 04/07/17 08:59 03/09/17 07:45 30 MG Losartan Potassium (coZAAR TAB) 50 mg DAILY PO 03/08/17 09:00 04/07/17 08:59 03/09/17 07:45 50 MG Mirabegron (Myrbetriq Er) 50 mg DAILY PO 03/08/17 09:00 04/07/17 08:59 03/09/17 07:46 50 MG Pregabalin (Lyrica Cap) 300 mg BID PO 03/08/17 09:00 04/07/17 08:59 03/09/17 20:34 300 MG Simvastatin (Zocor Tab) 20 mg QPM PO 03/08/17 21:00 04/07/17 20:59 03/09/17 20:36 20 MG Spironolactone (Aldactone Tab) 25 mg BID17 PO 03/08/17 09:00 04/07/17 08:59 03/09/17 16:57 25 MG Tamsulosin HCl (Flomax Cap) 0.4 mg HS PO 03/08/17 21:00 04/07/17 20:59 03/09/17 20:37 0.4 MG Zolpidem Tartrate (Ambien Tab) 10 mg HS PRN PO 03/08/17 02:45 04/07/17 02:44 Albuterol/ Ipratropium (Duoneb) 3 ml Q4 PRN INH 03/08/17 02:45 04/07/17 02:44 Ondansetron HCl (Zofran Inj) 4 mg Q6H PRN IV 03/08/17 03:00 04/07/17 02:59 03/09/17 20:34 4 MG Insulin Aspart (novoLOG ASPART) SLIDING SCALE If C... ACHS SC 03/08/17 06:30 04/07/17 06:59 03/09/17 20:42 1 UNITS Glucose (Glucose 40% Gel) UD PRN PO 03/08/17 03:00 04/07/17 02:59 Glucose (Glucose Chew Tab) 1 tabs UD PRN PO 03/08/17 03:00 04/07/17 02:59 Dextrose (Dextrose 50% 50ML Syringe) 50 ml UD PRN IV 03/08/17 03:00 04/07/17 02:59 Glucagon (Glucagon Inj) 1 mg UD PRN SQ 03/08/17 03:00 04/07/17 02:59 Miscellaneous (Iv Fluids Completed) 1 ea PRN PRN N/A 03/08/17 04:45 03/08/18 04:44 Insulin Glargine (Lantus Solostar Pen) 35 units BID SC 03/08/17 21:00 04/07/17 08:59 03/09/17 20:43 35 UNITS Diclofenac Sodium (Voltaren 1% Top Gel) 1 appln QID EXT 03/08/17 17:00 04/07/17 16:59 03/09/17 20:35 1 APPLN Oxycodone/ Acetaminophen (Percocet 5-325mg Tab) 2 tab Q6H PRN PO 03/09/17 11:45 03/22/17 02:44 Diphenhydramine HCl (Benadryl Cap) 25 mg Q6 PRN PO 03/09/17 11:45 04/08/17 11:44 Morphine Sulfate (MoRPHine SULFATE INJ) 2 mg Q2H PRN IV 03/09/17 11:45 03/23/17 11:44 03/09/17 20:34 2 MG Pantoprazole Sodium (Protonix Tab) 40 mg QAM PO 03/09/17 15:45 04/08/17 15:44 03/09/17 16:49 40 MG Ranitidine HCl (zANTac TAB) 150 mg HS PO 03/09/17 21:00 04/08/17 20:59 03/09/17 20:36 150 MG Objective Vital Signs Date Time Temp Pulse Resp B/P (MAP) Pulse Ox O2 Delivery O2 Flow Rate FiO2 03/10/17 08:05 36.6 80 18 138/76 (96) 94 Room Air 03/10/17 04:30 36.8 85 20 139/84 (102) 95 CPAP 03/10/17 04:00 BiPAP 03/10/17 00:10 36.7 82 20 122/71 (88) 94 CPAP 03/10/17 00:00 BiPAP 03/09/17 21:55 90 95 21 03/09/17 21:29 36.7 95 18 118/83 (95) 93 Room Air 03/09/17 20:00 95 Room Air 03/09/17 16:00 95 Room Air 03/09/17 15:13 36.3 87 22 120/77 (91) 95 Room Air 03/09/17 12:00 Room Air 03/09/17 11:48 36.4 102 22 123/78 (93) 93 Room Air 03/09/17 10:57 36.5 115 20 120/74 (89) 95 Room Air 03/09/17 10:36 121 94 Physical Exam General Appearance: no apparent distress Eyes: EOMI Respiratory/Chest: lungs clear, normal breath sounds, no respiratory distress Cardiovascular: regular rate, rhythm Abdomen: normal bowel sounds, non tender, soft Neurologic/Psych: alert, normal mood/affect, oriented x 3 Laboratory Results Last 24 Hours Test 03/09/17 11:40 03/09/17 16:56 03/09/17 20:20 03/10/17 06:15 Bedside Glucose 177 mg/dl 195 mg/dl 173 mg/dl White Blood Count 6.95 K/uL Red Blood Count 4.46 M/uL Hemoglobin 12.8 g/dL Hematocrit 39.9 % Mean Corpuscular Volume 89.5 fL Mean Corpuscular Hemoglobin 28.7 pg Mean Corpuscular Hemoglobin Concent 32.1 g/dl Platelet Count 176 K/uL Mean Platelet Volume 9.0 fL Neutrophils (%) (Auto) 62.7 % Lymphocytes (%) (Auto) 28.1 % Monocytes (%) (Auto) 5.3 % Eosinophils (%) (Auto) 3.2 % Basophils (%) (Auto) 0.3 % Neutrophils # (Auto) 4.36 K/uL Lymphocytes # (Auto) 1.95 K/uL Monocytes # (Auto) 0.37 K/uL Eosinophils # (Auto) 0.22 K/uL Basophils # (Auto) 0.02 K/uL RDW Standard Deviation 44.6 fL RDW Coefficient of Variation 13.6 % Immature Granulocyte % (Auto) 0.4 % Immature Granulocyte # (Auto) 0.03 K/uL Sodium Level 135 mmol/L Potassium Level 3.7 mmol/L Chloride Level 100 mmol/L Carbon Dioxide Level 29 mmol/L Anion Gap 6.0 mmol/L Blood Urea Nitrogen 27 mg/dl Creatinine 1.60 mg/dl Est Creatinine Clear Calc Drug Dose 61.9 ml/min Estimated GFR () 52.4 Estimated GFR (Non- 45.2 BUN/Creatinine Ratio 17.0 Random Glucose 151 mg/dl Estimated Average Glucose 180 mg/dl Hemoglobin A1c 7.9 % Calcium Level 8.6 mg/dl Magnesium Level 2.3 mg/dl Test 03/10/17 07:43 Bedside Glucose 145 mg/dl Assessment and Plan Patient is a 62 year old male with a history of PE admitted with hemoptysis ( now resolved) now with a single episode of n/v, GERD and intermittent dysphagia. 1. Await UGI series as ordered. 2. Continue Pantoprazole and Ranitidine as prescribed. 3. Additional recommendations pending results of testing. Agree with FABIAN Marques as above Abd: Soft, NT, ND, +BS Continue current therapy Advance diet as tolerated
[2017-03-10] MEDS: PREGABALIN 150 MG CAP PO SCH ×2 (10:04→20:37)
[2017-03-10] MEDS: INSULIN GLARGINE SOLOSTAR 100 UNITS/ML 3 ML PEN SC SCH ×2 (10:10→20:47)
--- NOTE | 2017-03-10 12:23 | DIAGNOSTIC IMAGING REPORT ---
GI SERIES W/AIR ROUTINE CLINICAL HISTORY: dysphagia, n/v and GERDdysphagia COMPARISON STUDY: 01/14/2011 FLUOROSCOPY TIME: 4.6 minutes. FINDINGS: Patient initiated swallowing function well. Mild esophageal dysmotility. Small hiatal hernia. Mild gastroesophageal reflux. Size and configuration stomach is normal. Duodenal bulb fills well. Duodenal sweep is unremarkable. IMPRESSION: 1. Mild esophageal dysmotility. 2. Small hiatal hernia. 3. Mild gastroesophageal reflux. The above report was generated using voice recognition software. It may contain grammatical, syntax or spelling errors. Electronically signed by: Kannan Bhakta M.D. 03/10/2017 12:22 PM Dictated Date/Time: 03/10/2017 12:21 PM
--- NOTE | 2017-03-10 13:12 | DIAGNOSTIC IMAGING REPORT ---
HEAD WITHOUT CONTRAST (CT) CT DOSE: 897.51 mGycm HISTORY: Headache refractory headache TECHNIQUE: Multiaxial CT images of the head were performed without the use of intravenous contrast. A dose lowering technique was utilized adhering to the principles of ALARA. Comparison: 11/12/2016 Findings: Mild mucosal thickening of the ethmoid and sphenoid air cells. Mastoid air cells are clear. The calvarium and skull base are intact. The ventricles and sulci are within normal limits. There is no mass, hematoma, midline shift, or acute infarct. Impression: 1. Mild mucosal thickening in the ethmoid and sphenoid air cells.. 2. Negative CT of the brain. The above report was generated using voice recognition software. It may contain grammatical, syntax or spelling errors. Electronically signed by: Kannan Bhakta M.D. 03/10/2017 1:10 PM Dictated Date/Time: 03/10/2017 1:07 PM
[2017-03-10] MEDS: OXYCODONE/ACETAMINOPHEN 5-325 TAB PO PRN (13:19)
[2017-03-10] MEDS: MoRPHine SULFATE 2 MG/ML CARP IV PRN (13:52)
--- NOTE | 2017-03-10 19:09 | Hospitalist Progress Note ---
Hospitalist Progress Note Date of Service Mar 10, 2017. Subjective Pt evaluation today including: conversation w/ patient, conversation w/ family , conversation w/ apprenticeship consultant (GI) Pt feeling better today. Not having the chest pressure anymore. Had RUQ US which was negative, UGI series with mild esophageal dysmotility, and CT head negative. Only mild headache today. Discussed case with Neuro. Ambulated with PT, some SOB All Other Systems: Reviewed and Negative Objective Vital Signs Date Time Temp Pulse Resp B/P (MAP) Pulse Ox O2 Delivery O2 Flow Rate FiO2 03/10/17 16:00 Room Air 03/10/17 15:03 36.7 92 16 123/74 (90) 92 Room Air 03/10/17 12:00 Room Air CPAP 03/10/17 11:38 36.6 100 18 122/70 (87) 97 Room Air 03/10/17 08:05 36.6 80 18 138/76 (96) 94 Room Air 03/10/17 08:00 Room Air CPAP 03/10/17 04:30 36.8 85 20 139/84 (102) 95 CPAP 03/10/17 04:00 BiPAP 03/10/17 00:10 36.7 82 20 122/71 (88) 94 CPAP 03/10/17 00:00 BiPAP 03/09/17 21:55 90 95 21 03/09/17 21:29 36.7 95 18 118/83 (95) 93 Room Air 03/09/17 20:00 95 Room Air Physical Exam General Appearance: no apparent distress, + obese Eyes: normal inspection, sclerae normal ENT: hearing grossly normal Neck: trachea midline Respiratory/Chest: lungs clear, normal breath sounds, no respiratory distress, no accessory muscle use Cardiovascular: regular rate, rhythm, no edema, no gallop, no murmur Abdomen: normal bowel sounds, non tender, soft Extremities: non-tender, normal inspection, no pedal edema, no calf tenderness Neurologic/Psychiatric: alert, + pertinent finding (masked facies) Skin: normal color, warm/dry, no rash Laboratory Results Last 24 Hours Test 03/09/17 20:20 03/10/17 06:15 03/10/17 07:43 03/10/17 13:20 Bedside Glucose 173 mg/dl 145 mg/dl 188 mg/dl White Blood Count 6.95 K/uL Red Blood Count 4.46 M/uL Hemoglobin 12.8 g/dL Hematocrit 39.9 % Mean Corpuscular Volume 89.5 fL Mean Corpuscular Hemoglobin 28.7 pg Mean Corpuscular Hemoglobin Concent 32.1 g/dl Platelet Count 176 K/uL Mean Platelet Volume 9.0 fL Neutrophils (%) (Auto) 62.7 % Lymphocytes (%) (Auto) 28.1 % Monocytes (%) (Auto) 5.3 % Eosinophils (%) (Auto) 3.2 % Basophils (%) (Auto) 0.3 % Neutrophils # (Auto) 4.36 K/uL Lymphocytes # (Auto) 1.95 K/uL Monocytes # (Auto) 0.37 K/uL Eosinophils # (Auto) 0.22 K/uL Basophils # (Auto) 0.02 K/uL RDW Standard Deviation 44.6 fL RDW Coefficient of Variation 13.6 % Immature Granulocyte % (Auto) 0.4 % Immature Granulocyte # (Auto) 0.03 K/uL Sodium Level 135 mmol/L Potassium Level 3.7 mmol/L Chloride Level 100 mmol/L Carbon Dioxide Level 29 mmol/L Anion Gap 6.0 mmol/L Blood Urea Nitrogen 27 mg/dl Creatinine 1.60 mg/dl Est Creatinine Clear Calc Drug Dose 61.9 ml/min Estimated GFR () 52.4 Estimated GFR (Non- 45.2 BUN/Creatinine Ratio 17.0 Random Glucose 151 mg/dl Estimated Average Glucose 180 mg/dl Hemoglobin A1c 7.9 % Calcium Level 8.6 mg/dl Magnesium Level 2.3 mg/dl Test 03/10/17 13:52 03/10/17 16:38 Heparin Anti-Xa Act, Low Molec Wt 2.26 IU/ML Bedside Glucose 164 mg/dl Assessment and Plan Pt is a 62 yo male with a h/o a Hypercoagulable state with history of recurrent deep venous thrombosis and saddle pulmonary embolism in October 2014 for which he has an indwelling inferior vena cava filter and is on chronic Lovenox, Parkinson 's disease, Hypertension with hypertensive heart disease, Obesity, 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 SOB, Chest pressure--> seems to be GI related. Improving with antacids now. With dysphagia as well. Also with some possible reduced RV function/Chronic right sided systolic and LV diastolic dysfunction contributing to SOB. 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 Analgesia or rebound headaches vs chronic daily migraine. Seen by Neuro here. -recommend starting verapamil as uncontrolled HTN seems to be contributing- start 120mg once daily now -MRI brain 10/2016 ok -repeat head CT here negative - follow up with Neuro for PD and migraines ?CAD/hypertension/chronic combined systolic and diastolic CHF--no current issues , BPs better today serial cardiac enzymes negative x 2 Continue furosemide 80 mg by mouth daily, Imdur 30 mg by mouth every morning, losartan potassium 50 mg by mouth daily, and spironolactone 25 mg by mouth twice a day. -starting verapamil He did have an echocardiogram performed during last admission which showed normal LV fxn, mildly reduced RV function, and diastolic dysfunction Pulmonary embolism history/DVT history/antiphospholipid syndrome/status post IVC filter/chronic anticoagulation with Lovenox/Minimal hemoptysis/Pulm nodule-- Continue Lovenox but Pharmacy and Dr. 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 Lower extremity venous Dopplers last admission showed chronic DVT. -continue duonebs every 4 hours when necessary. Consult pulmonology for their opinion regarding contribution to his subjective symptoms of shortness of breath--> recommended BiPAP instead of CPAP for nocturnal use--> will need to f/u with Dr. Cody as outpt -for hemoptysis, seems to have resolved, Pulm does not recommend any further evaluation -needs to have Pulm Nodule followed routinely Diabetes mellitus II--glucose readings somewhat elevated but acceptable, last HgbA1C 6.1% in 11/2016 Continue basal bolus insulin and adjust dose as needed -glucose checks -check HgbA1C Hyperlipidemia--continue simvastatin 20 no grams by mouth every evening. Parkinson's disease--vs Parkinsonism as per Neuro consult. Mild continue carbidopa/levodopa CR 50/200, 1 by mouth twice a day and amantadine 100 mg by mouth twice a day. BPH/bladder spasm-- Continue Avodart 0.5 mg by mouth daily, Myrbetriq ER 50 mg by mouth daily, and tamsulosin 0.4 mg by mouth at bedtime. Anxiety/depression/neuropathy-- continue fluoxetine 40 mg by mouth daily and Lyrica GERD, Esophageal dysmotility-- continue PPI, H2 vanna Gout-- Continue allopurinol 100 mg by mouth daily. DVT Proph-Lovenox Dispo- to home likely tomorrow
[2017-03-10] MEDS: TAMSULOSIN HCL 0.4 MG CAP PO SCH (20:37)
[2017-03-10] MEDS: SIMVASTATIN 20 MG TAB PO SCH (20:38)
[2017-03-10] MEDS: RANITIDINE HCL 150 MG TAB PO SCH (20:38)
[2017-03-10] MEDS: VERAPAMIL HCL 120 MG TABCR PO SCH (20:55)
[2017-03-11 00:39] VITALS: BP 124/75; PULSE 101; TEMP 37.2; O2SAT 96
[2017-03-11 04:26] VITALS: BP 132/72; PULSE 82; TEMP 36.4; O2SAT 94
[2017-03-11 06:51] LABS: BASO % 0.5 %; BASO ABS # 0.03 K/uL (0-0.2); COMPLETE YES; EOS % 3.6 %; HEMATOCRIT 40.8 % (42-52); IG% 0.2 %; LYMPH % 24.2 %; LYMPH ABS # 1.53 K/uL (1.2-3.4); MEAN CELL VOLUME 90.9 fL (80-100); MEAN CORPUSCULAR HEMOGLOBIN 28.5 pg (25-34); MEAN CORPUSCULAR HGB CONC 31.4 g/dl (32-36); MEAN PLATELET VOLUME 9.5 fL (7.4-10.4); MONO % 6.3 %; NEUT % 65.2 %; PLATELET COUNT 197 K/uL (130-400); RED BLOOD COUNT 4.49 M/uL (4.7-6.1); WHITE BLOOD COUNT 6.33 K/uL (4.8-10.8)
[2017-03-11 07:13] LABS: BUN/CREATININE RATIO 16.3 (10-20); CREATININE 1.6 mg/dl (0.60-1.40); MAGNESIUM 2.2 mg/dl (1.8-2.4); POTASSIUM 3.7 mmol/L (3.5-5.1)
[2017-03-11 07:20] VITALS: BP 135/73; PULSE 78; TEMP 36.5; O2SAT 93
[2017-03-11] MEDS: LOSARTAN POTASSIUM 50 MG TAB PO SCH (08:00)
[2017-03-11] MEDS: DICLOFENAC SOD 1% GEL 100 GM TUBE EXT SCH ×4 (08:00→20:54)
[2017-03-11] MEDS: SPIRONOLACTONE 25 MG TAB PO SCH (08:00)
[2017-03-11] MEDS: ISOSORBIDE MONONITRATE 30 MG TABCR PO SCH (08:01)
[2017-03-11] MEDS: FUROSEMIDE 80 MG TAB PO SCH (08:01)
[2017-03-11] MEDS: MIRABEGRON ER 25 MG TAB PO SCH (08:01)
[2017-03-11] MEDS: PREGABALIN 150 MG CAP PO SCH ×2 (08:02→20:54)
[2017-03-11] MEDS: ALLOPURINOL 100 MG TAB PO SCH (08:02)
[2017-03-11] MEDS: CARBIDOPA/LEVODOPA 50/200MG EXT REL TAB PO SCH ×2 (08:02→20:54)
[2017-03-11] MEDS: PANTOprazole SOD 40 MG TAB PO SCH (08:02)
[2017-03-11] MEDS: FLUOXETINE HCL 20 MG CAP PO SCH (08:02)
[2017-03-11] MEDS: ASCORBIC ACID 500 MG TAB PO SCH (08:02)
[2017-03-11] MEDS: AMANTADINE HCL 100 MG CAP PO SCH ×2 (08:02→20:54)
[2017-03-11] MEDS: ENOXAPARIN 150 MG/1ML SYR SC SCH (08:03)
[2017-03-11] MEDS: OXYCODONE/ACETAMINOPHEN 5-325 TAB PO PRN (08:03)
[2017-03-11] MEDS: INSULIN GLARGINE SOLOSTAR 100 UNITS/ML 3 ML PEN SC SCH ×2 (08:14→20:58)
[2017-03-11] MEDS: INSULIN ASPART 100 UNITS/ML 3 ML PEN SC SCH ×4 (08:14→20:32)
--- NOTE | 2017-03-11 09:15 | Gastroenterology Progress Note ---
Progress Note Date of Service: Mar 11, 2017 Subjective Pt evaluation today including: conversation w/ patient, physical exam, chart review, review of inpatient medication list Patient tolerating diet. No new GI complaints. UGI study yesterday demonstrated GERD and mild esophageal dysmotility but no esophagea narrowing or mass. Continues Pantoprazole and Ranitidine. Denies any chest pain, shortness of breath and abdominal pain. No GIB. Review of Systems Constitutional: No problem reported Respiratory: + see HPI Cardiac: + see HPI Abdomen: + see HPI Medications Current Inpatient Medications Medications (Trade) Dose Ordered Sig/Apryl Route Start Time Stop Time Status Last Admin Dose Admin Ioversol (Optiray 320) 100 ml UD PRN IV 03/08/17 01:00 03/12/17 00:59 Acetaminophen (Tylenol Tab) 650 mg Q4H PRN PO 03/08/17 02:45 04/07/17 02:44 Allopurinol (Zyloprim Tab) 100 mg DAILY PO 03/08/17 09:00 04/07/17 08:59 03/11/17 08:02 100 MG Amantadine HCl (Symmetrel Cap) 100 mg BID PO 03/08/17 09:00 04/07/17 08:59 03/11/17 08:02 100 MG Ascorbic Acid (Vitamin C Tab) 500 mg QAM PO 03/08/17 09:00 04/07/17 08:59 03/11/17 08:02 500 MG Carbidopa/Levodopa (Sinemet Cr 50/ 200MG Tab) 1 tab BID PO 03/08/17 09:00 04/07/17 08:59 03/11/17 08:02 1 TAB Fluoxetine HCl (Prozac Cap) 40 mg DAILY PO 03/08/17 09:00 04/07/17 08:59 03/11/17 08:02 40 MG Furosemide (Lasix Tab) 80 mg DAILY PO 03/08/17 09:00 04/07/17 08:59 03/11/17 08:01 80 MG Isosorbide Mononitrate (Imdur Ext Rel Tab) 30 mg QAM PO 03/08/17 09:00 04/07/17 08:59 03/11/17 08:01 30 MG Losartan Potassium (coZAAR TAB) 50 mg DAILY PO 03/08/17 09:00 04/07/17 08:59 03/11/17 08:00 50 MG Mirabegron (Myrbetriq Er) 50 mg DAILY PO 03/08/17 09:00 04/07/17 08:59 03/11/17 08:01 50 MG Pregabalin (Lyrica Cap) 300 mg BID PO 03/08/17 09:00 04/07/17 08:59 03/11/17 08:02 300 MG Simvastatin (Zocor Tab) 20 mg QPM PO 03/08/17 21:00 04/07/17 20:59 03/10/17 20:38 20 MG Spironolactone (Aldactone Tab) 25 mg BID17 PO 03/08/17 09:00 04/07/17 08:59 03/11/17 08:00 25 MG Tamsulosin HCl (Flomax Cap) 0.4 mg HS PO 03/08/17 21:00 04/07/17 20:59 03/10/17 20:37 0.4 MG Zolpidem Tartrate (Ambien Tab) 10 mg HS PRN PO 03/08/17 02:45 04/07/17 02:44 Albuterol/ Ipratropium (Duoneb) 3 ml Q4 PRN INH 03/08/17 02:45 04/07/17 02:44 Ondansetron HCl (Zofran Inj) 4 mg Q6H PRN IV 03/08/17 03:00 04/07/17 02:59 03/09/17 20:34 4 MG Insulin Aspart (novoLOG ASPART) SLIDING SCALE If C... ACHS SC 03/08/17 06:30 04/07/17 06:59 03/11/17 08:14 7 UNITS Glucose (Glucose 40% Gel) UD PRN PO 03/08/17 03:00 04/07/17 02:59 Glucose (Glucose Chew Tab) 1 tabs UD PRN PO 03/08/17 03:00 04/07/17 02:59 Dextrose (Dextrose 50% 50ML Syringe) 50 ml UD PRN IV 03/08/17 03:00 04/07/17 02:59 Glucagon (Glucagon Inj) 1 mg UD PRN SQ 03/08/17 03:00 04/07/17 02:59 Miscellaneous (Iv Fluids Completed) 1 ea PRN PRN N/A 03/08/17 04:45 03/08/18 04:44 Insulin Glargine (Lantus Solostar Pen) 35 units BID SC 03/08/17 21:00 04/07/17 08:59 03/11/17 08:14 35 UNITS Diclofenac Sodium (Voltaren 1% Top Gel) 1 appln QID EXT 03/08/17 17:00 04/07/17 16:59 03/11/17 08:00 1 APPLN Oxycodone/ Acetaminophen (Percocet 5-325mg Tab) 2 tab Q6H PRN PO 03/09/17 11:45 03/22/17 02:44 03/11/17 08:03 2 TAB Diphenhydramine HCl (Benadryl Cap) 25 mg Q6 PRN PO 03/09/17 11:45 04/08/17 11:44 Morphine Sulfate (MoRPHine SULFATE INJ) 2 mg Q2H PRN IV 03/09/17 11:45 03/23/17 11:44 03/10/17 13:52 2 MG Pantoprazole Sodium (Protonix Tab) 40 mg QAM PO 03/09/17 15:45 04/08/17 15:44 03/11/17 08:02 40 MG Ranitidine HCl (zANTac TAB) 150 mg HS PO 03/09/17 21:00 04/08/17 20:59 03/10/17 20:38 150 MG Enoxaparin Sodium (Lovenox Inj) 150 mg QAM SC 03/11/17 09:00 04/10/17 08:59 03/11/17 08:03 150 MG Verapamil HCl (Calan-Sr Tab) 120 mg HS PO 03/10/17 21:00 04/09/17 20:59 03/10/17 20:55 120 MG Objective Vital Signs Date Time Temp Pulse Resp B/P (MAP) Pulse Ox O2 Delivery O2 Flow Rate FiO2 03/11/17 07:20 36.5 78 20 135/73 (93) 93 BiPAP 03/11/17 04:26 36.4 82 16 132/72 (92) 94 03/11/17 04:00 Room Air CPAP 03/11/17 00:39 37.2 101 18 124/75 (91) 96 03/11/17 00:00 Room Air CPAP 03/10/17 20:50 90 94 21 03/10/17 20:14 Room Air 03/10/17 19:59 36.8 100 20 125/78 (94) 92 Room Air 03/10/17 16:00 Room Air 03/10/17 15:03 36.7 92 16 123/74 (90) 92 Room Air 03/10/17 12:00 Room Air CPAP 03/10/17 11:38 36.6 100 18 122/70 (87) 97 Room Air Physical Exam General Appearance: no apparent distress Eyes: EOMI Respiratory/Chest: lungs clear, normal breath sounds, no respiratory distress Cardiovascular: regular rate, rhythm, no gallop, no murmur Abdomen: normal bowel sounds, non tender, soft Neurologic/Psych: alert, normal mood/affect, oriented x 3 Laboratory Results Last 24 Hours Test 03/10/17 13:20 03/10/17 13:52 03/10/17 16:38 03/10/17 20:29 Bedside Glucose 188 mg/dl 164 mg/dl 128 mg/dl Heparin Anti-Xa Act, Low Molec Wt 2.26 IU/ML Test 03/11/17 06:12 03/11/17 07:37 White Blood Count 6.33 K/uL Red Blood Count 4.49 M/uL Hemoglobin 12.8 g/dL Hematocrit 40.8 % Mean Corpuscular Volume 90.9 fL Mean Corpuscular Hemoglobin 28.5 pg Mean Corpuscular Hemoglobin Concent 31.4 g/dl Platelet Count 197 K/uL Mean Platelet Volume 9.5 fL Neutrophils (%) (Auto) 65.2 % Lymphocytes (%) (Auto) 24.2 % Monocytes (%) (Auto) 6.3 % Eosinophils (%) (Auto) 3.6 % Basophils (%) (Auto) 0.5 % Neutrophils # (Auto) 4.13 K/uL Lymphocytes # (Auto) 1.53 K/uL Monocytes # (Auto) 0.40 K/uL Eosinophils # (Auto) 0.23 K/uL Basophils # (Auto) 0.03 K/uL RDW Standard Deviation 45.1 fL RDW Coefficient of Variation 13.6 % Immature Granulocyte % (Auto) 0.2 % Immature Granulocyte # (Auto) 0.01 K/uL Sodium Level 136 mmol/L Potassium Level 3.7 mmol/L Chloride Level 98 mmol/L Carbon Dioxide Level 29 mmol/L Anion Gap 9.0 mmol/L Blood Urea Nitrogen 26 mg/dl Creatinine 1.60 mg/dl Est Creatinine Clear Calc Drug Dose 62.7 ml/min Estimated GFR () 52.4 Estimated GFR (Non- 45.2 BUN/Creatinine Ratio 16.3 Random Glucose 145 mg/dl Calcium Level 9.0 mg/dl Magnesium Level 2.2 mg/dl Bedside Glucose 135 mg/dl Assessment and Plan Patient is a 62 year old male with a history of PE admitted with hemoptysis ( now resolved) now with a single episode of n/v, GERD and intermittent dysphagia. 1. Dysphagia most likely related to esophageal dysmotility. 2. Continue Pantoprazole and Ranitidine as prescribed. 3. Recommend outpatient follow up in our office to discuss ongoing symptoms and if any additional GI work up such as EGD and or esophageal manometry would be appropriate. Will sign off at this time. If you have any questions or concerns, please do not hesitate to contact us. Agree with FABIAN Marques as above Abd: Soft, NT, ND, +BS Continue current therapy Recommend outpatient followup if symptoms persist
[2017-03-11] MEDS ORDERED: NURSING VERBAL MED ORDER ONE (11:15)
[2017-03-11] MEDS ORDERED: BISACODYL 5 MG TABEC PO ONE (11:30)
[2017-03-11 12:00] VITALS: BP 104/64; PULSE 80; TEMP 36.5; O2SAT 93
[2017-03-11 15:18] VITALS: BP 100/60; PULSE 93; TEMP 36.6; O2SAT 92
--- NOTE | 2017-03-11 17:49 | Hospitalist Progress Note ---
Hospitalist Progress Note Date of Service Mar 11, 2017. Subjective Pt evaluation today including: conversation w/ patient Pt feeling very well today, no further CP, no further SOB, feels the antacids are really helping. No hemoptysis. No dysphagia or odynophagia. He is not moving his bowels but is making urine. He was OOB ambulating a bit today. 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 He has been drinking and eating today like normal. No headache at all today, BPs better controlled, tolerating verapamil All Other Systems: Reviewed and Negative Objective Vital Signs Tele: NSR with ST to 130s-140s with ambulating, one brief dip into the 30s but not sustained Date Time Temp Pulse Resp B/P (MAP) Pulse Ox O2 Delivery O2 Flow Rate FiO2 03/11/17 16:00 Room Air 03/11/17 15:18 36.6 93 18 100/60 (73) 92 Room Air 03/11/17 12:00 Room Air 03/11/17 12:00 36.5 80 24 104/64 (77) 93 Room Air 03/11/17 07:45 Room Air 03/11/17 07:20 36.5 78 20 135/73 (93) 93 BiPAP 03/11/17 04:26 36.4 82 16 132/72 (92) 94 03/11/17 04:00 Room Air CPAP 03/11/17 00:39 37.2 101 18 124/75 (91) 96 03/11/17 00:00 Room Air CPAP 03/10/17 20:50 90 94 21 03/10/17 20:14 Room Air 03/10/17 19:59 36.8 100 20 125/78 (94) 92 Room Air Physical Exam General Appearance: WD/WN, no apparent distress, + obese Eyes: normal inspection, sclerae normal ENT: hearing grossly normal Neck: trachea midline Respiratory/Chest: lungs clear, normal breath sounds, no respiratory distress, no accessory muscle use Cardiovascular: regular rate, rhythm, no edema, no murmur Abdomen: normal bowel sounds, non tender, soft Extremities: non-tender, normal inspection, no pedal edema, no calf tenderness Neurologic/Psychiatric: alert, normal mood/affect, oriented x 3 Skin: normal color, warm/dry, no rash Laboratory Results Last 24 Hours Test 03/10/17 20:29 03/11/17 06:12 03/11/17 07:37 03/11/17 11:53 Bedside Glucose 128 mg/dl 135 mg/dl 141 mg/dl White Blood Count 6.33 K/uL Red Blood Count 4.49 M/uL Hemoglobin 12.8 g/dL Hematocrit 40.8 % Mean Corpuscular Volume 90.9 fL Mean Corpuscular Hemoglobin 28.5 pg Mean Corpuscular Hemoglobin Concent 31.4 g/dl Platelet Count 197 K/uL Mean Platelet Volume 9.5 fL Neutrophils (%) (Auto) 65.2 % Lymphocytes (%) (Auto) 24.2 % Monocytes (%) (Auto) 6.3 % Eosinophils (%) (Auto) 3.6 % Basophils (%) (Auto) 0.5 % Neutrophils # (Auto) 4.13 K/uL Lymphocytes # (Auto) 1.53 K/uL Monocytes # (Auto) 0.40 K/uL Eosinophils # (Auto) 0.23 K/uL Basophils # (Auto) 0.03 K/uL RDW Standard Deviation 45.1 fL RDW Coefficient of Variation 13.6 % Immature Granulocyte % (Auto) 0.2 % Immature Granulocyte # (Auto) 0.01 K/uL Sodium Level 136 mmol/L Potassium Level 3.7 mmol/L Chloride Level 98 mmol/L Carbon Dioxide Level 29 mmol/L Anion Gap 9.0 mmol/L Blood Urea Nitrogen 26 mg/dl Creatinine 1.60 mg/dl Est Creatinine Clear Calc Drug Dose 62.7 ml/min Estimated GFR () 52.4 Estimated GFR (Non- 45.2 BUN/Creatinine Ratio 16.3 Random Glucose 145 mg/dl Calcium Level 9.0 mg/dl Magnesium Level 2.2 mg/dl Test 03/11/17 16:31 Bedside Glucose 154 mg/dl Assessment and Plan Pt is a 62 yo male with a h/o a Hypercoagulable state with history of recurrent deep venous thrombosis and saddle pulmonary embolism in October 2014 for which he has an indwelling inferior vena cava filter and is on chronic Lovenox, Parkinson 's disease, Hypertension with hypertensive heart disease, Obesity, 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 SOB, Chest pressure--> was likely GI related considering his esophageal dysmotility.Now completely resolved with starting PPI and H2 vanna. Dysphagia also resolved. Does also have some possible reduced RV function/Chronic right sided systolic and LV diastolic dysfunction which could be contributing to SOB. 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 Analgesia or rebound headaches vs chronic daily migraine. Seen by Neuro here. Also Neuro thinks uncontrolled BPs contributing -MRI brain 10/2016 ok -repeat head CT here negative -recommend starting verapamil as uncontrolled HTN seems to be contributing- started 120mg once daily and already feeling better, BPs better controlled too which is likely helping - follow up with Neuro for PD and migraines as outpt ?CAD/hypertension/chronic combined systolic and diastolic CHF--no current issues , BPs better today serial cardiac enzymes negative x 2 -holding furosemide and aldactone as above -continue Imdur 30 mg by mouth every morning, losartan potassium 50 mg by mouth daily -started verapamil He did have an echocardiogram performed during last admission which showed normal LV fxn, mildly reduced RV function, and diastolic dysfunction Pulmonary embolism history/DVT history/antiphospholipid syndrome/status post IVC filter/chronic anticoagulation with Lovenox/Minimal hemoptysis/Pulm nodule-- Continue Lovenox but Pharmacy and Dr. 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 Lower extremity venous Dopplers last admission showed chronic DVT. -continue duonebs every 4 hours when necessary. Consult pulmonology for their opinion regarding contribution to his subjective symptoms of shortness of breath--> recommended BiPAP instead of CPAP for nocturnal use, however he said this was only because he had a broken facemask-- > I don't think this is necessary -for hemoptysis, seems to have resolved, Pulm does not recommend any further evaluation -needs to have Pulm Nodule followed routinely Diabetes mellitus II--glucose readings somewhat elevated but acceptable, last HgbA1C 6.1% in 11/2016, now up to 7.9% Continue basal bolus insulin and adjust dose as needed--> Lantus up to 35 bid from home dose 30 bid -glucose checks -f/u PCP Hyperlipidemia--continue simvastatin 20 no grams by mouth every evening. Parkinson's disease--vs Parkinsonism as per Neuro consult. Mild continue carbidopa/levodopa CR 50/200, 1 by mouth twice a day and amantadine 100 mg by mouth twice a day. BPH/bladder spasm-- Continue Avodart 0.5 mg by mouth daily, Myrbetriq ER 50 mg by mouth daily, and tamsulosin 0.4 mg by mouth at bedtime. Anxiety/depression/neuropathy-- continue fluoxetine 40 mg by mouth daily and Lyrica GERD, Esophageal dysmotility-- continue PPI, H2 vanna Gout-- Continue allopurinol 100 mg by mouth daily. DVT Proph-Lovenox Dispo- to home likely tomorrow if renal function improved
[2017-03-11 19:35] VITALS: BP 115/78; PULSE 99; TEMP 36.6; O2SAT 93
[2017-03-11] MEDS: SIMVASTATIN 20 MG TAB PO SCH (20:54)
[2017-03-11] MEDS: VERAPAMIL HCL 120 MG TABCR PO SCH (20:54)
[2017-03-11] MEDS: TAMSULOSIN HCL 0.4 MG CAP PO SCH (20:54)
[2017-03-11] MEDS: RANITIDINE HCL 150 MG TAB PO SCH (20:54)
[2017-03-12] VITALS (8 sets, daily range): BP systolic 100–144; BP diastolic 66–80; PULSE 75–89; TEMP 36.5–36.7; O2SAT 90–98
[2017-03-12 07:27] LABS: BASO % 0.6 %; BASO ABS # 0.03 K/uL (0-0.2); COMPLETE YES; EOS % 4.2 %; HEMATOCRIT 38.6 % (42-52); IG% 0.4 %; LYMPH % 29.3 %; LYMPH ABS # 1.47 K/uL (1.2-3.4); MEAN CELL VOLUME 88.7 fL (80-100); MEAN CORPUSCULAR HEMOGLOBIN 28.7 pg (25-34); MEAN CORPUSCULAR HGB CONC 32.4 g/dl (32-36); MEAN PLATELET VOLUME 9.2 fL (7.4-10.4); MONO % 9.4 %; NEUT % 56.1 %; PLATELET COUNT 182 K/uL (130-400); RED BLOOD COUNT 4.35 M/uL (4.7-6.1); WHITE BLOOD COUNT 5.01 K/uL (4.8-10.8)
[2017-03-12 07:59] LABS: BUN/CREATININE RATIO 17.8 (10-20); CALCIUM 9.3 mg/dl (8.5-10.1); CREATININE 1.4 mg/dl (0.60-1.40); MAGNESIUM 2.4 mg/dl (1.8-2.4); POTASSIUM 3.7 mmol/L (3.5-5.1)
[2017-03-12] MEDS: ISOSORBIDE MONONITRATE 30 MG TABCR PO SCH (08:00)
[2017-03-12] MEDS: DICLOFENAC SOD 1% GEL 100 GM TUBE EXT SCH ×2 (08:00→13:00)
[2017-03-12] MEDS: PREGABALIN 150 MG CAP PO SCH (08:00)
[2017-03-12] MEDS: LOSARTAN POTASSIUM 50 MG TAB PO SCH (08:00)
[2017-03-12] MEDS: PANTOprazole SOD 40 MG TAB PO SCH (08:00)
[2017-03-12] MEDS: MIRABEGRON ER 25 MG TAB PO SCH (08:00)
[2017-03-12] MEDS: ALLOPURINOL 100 MG TAB PO SCH (08:01)
[2017-03-12] MEDS: FLUOXETINE HCL 20 MG CAP PO SCH (08:01)
[2017-03-12] MEDS: ENOXAPARIN 150 MG/1ML SYR SC SCH (08:01)
[2017-03-12] MEDS: CARBIDOPA/LEVODOPA 50/200MG EXT REL TAB PO SCH (08:01)
[2017-03-12] MEDS: AMANTADINE HCL 100 MG CAP PO SCH (08:01)
[2017-03-12] MEDS: ASCORBIC ACID 500 MG TAB PO SCH (08:01)
[2017-03-12] MEDS: INSULIN ASPART 100 UNITS/ML 3 ML PEN SC SCH ×2 (08:06→12:25)
[2017-03-12] MEDS: INSULIN GLARGINE SOLOSTAR 100 UNITS/ML 3 ML PEN SC SCH (08:30)
[2017-03-12] MEDS ORDERED: NURSING VERBAL MED ORDER ONE (10:30)
[2017-03-12] MEDS ORDERED: MAGNESIUM HYDROXIDE SUSP 30 ML UDC PO ONE (10:30)
[2017-03-12] MEDS ORDERED: VERA1TAB52 PO ×2 (10:50)
[2017-03-12] MEDS ORDERED: ZNT150 PO ×2 (10:50)
[2017-03-12] MEDS ORDERED: SPIR25TA PO ×2 (10:50)
[2017-03-12] MEDS ORDERED: PRT40 PO ×2 (10:50)
[2017-03-12] MEDS ORDERED: FURO80TA63 PO ×2 (10:50)
[2017-03-12] MEDS ORDERED: LVNIS150 SC ×2 (10:50)
[2017-03-12] MEDS ORDERED: INSDGI SC ×2 (10:50)
--- NOTE | 2017-03-12 11:12 | Discharge Instructions ---
Discharge Instructions Date of Service Mar 12, 2017. Admission Reason for Admission: Chest pain, Shortness of Breath Discharge Discharge Diagnosis / Problem: Chest pain, Shortness of Breath due to acid reflux Discharge Goals Goal(s): Improve disease control, Diagnostic testing, Therapeutic intervention Activity Recommendations Activity Limitations: as noted below Exercise/Sports Limitations: gradually increase as tolerated (with Home PT/OT) Shower/Bathe: no limitations . Instructions / Follow-Up Instructions / Follow-Up You were admitted with chest pressure and shortness of breath. This was determined to be caused by a problem with your esophagus called Esophageal Dysmotility and acid reflux. You were started on Protonix and Zantac and had complete resolution of your symptoms. You were also started on verapamil to help prevent your frequent migraine headaches and better control your blood pressure. Your headaches and blood pressure both were dramatically improved at time of discharge. Your kidney function also worsened while you were here after you were vomiting and dehydrated while taking your diuretics (lasix, aldactone). We held these medications and your kidney function improved. These medicines should not be taken until after you have repeat blood work with the Home Health RN or go to the lab tomorrow. If Dr. Ocasio thinks your kidneys are back to normal, then you can restart those two medications. Also, your Lovenox dosing was changed to 150mg once daily due to your kidney function and a blood level was checked for your Lovenox and was found to be quite high. You should have this level rechecked with blood work tomorrow at 12:00 to see if it is within the goal range of 1.0-2.0 Please follow up with Neurology/Dr. Orozco within 1 month for your Parkinson's and Migraines. This appt is being scheduled for you. Please follow up with Dr. Sebas Mg/GI within 1 month for you esophagus problem. This appointment is being scheduled for you. Please follow up with Dr. Ocasio as scheduled for you. Current Hospital Diet Patient's current hospital diet: Diabetes Type 2 Diet Discharge Diet Recommended Diet: Low Sodium Diet (2gm Na), Diabetes Type 2 Diet Procedures Procedures Performed: Chest xray CT Angiogram chest Gallbladder ultrasound Upper GI series Head CT Pending Studies Studies pending at discharge: no Laboratory Results Last 24 Hours Test 03/11/17 11:53 03/11/17 16:31 03/11/17 20:19 03/12/17 07:01 Bedside Glucose 141 mg/dl 154 mg/dl 119 mg/dl White Blood Count 5.01 K/uL Red Blood Count 4.35 M/uL Hemoglobin 12.5 g/dL Hematocrit 38.6 % Mean Corpuscular Volume 88.7 fL Mean Corpuscular Hemoglobin 28.7 pg Mean Corpuscular Hemoglobin Concent 32.4 g/dl Platelet Count 182 K/uL Mean Platelet Volume 9.2 fL Neutrophils (%) (Auto) 56.1 % Lymphocytes (%) (Auto) 29.3 % Monocytes (%) (Auto) 9.4 % Eosinophils (%) (Auto) 4.2 % Basophils (%) (Auto) 0.6 % Neutrophils # (Auto) 2.81 K/uL Lymphocytes # (Auto) 1.47 K/uL Monocytes # (Auto) 0.47 K/uL Eosinophils # (Auto) 0.21 K/uL Basophils # (Auto) 0.03 K/uL RDW Standard Deviation 44.3 fL RDW Coefficient of Variation 13.6 % Immature Granulocyte % (Auto) 0.4 % Immature Granulocyte # (Auto) 0.02 K/uL Sodium Level 137 mmol/L Potassium Level 3.7 mmol/L Chloride Level 101 mmol/L Carbon Dioxide Level 29 mmol/L Anion Gap 7.0 mmol/L Blood Urea Nitrogen 25 mg/dl Creatinine 1.40 mg/dl Est Creatinine Clear Calc Drug Dose 71.7 ml/min Estimated GFR () 61.5 Estimated GFR (Non- 53.1 BUN/Creatinine Ratio 17.8 Random Glucose 96 mg/dl Calcium Level 9.3 mg/dl Magnesium Level 2.4 mg/dl Test 03/12/17 07:33 Bedside Glucose 98 mg/dl Hemoglobin A1c Test 03/10/17 06:15 Range/Units Estimated Average Glucose 180 mg/dl Hemoglobin A1c 7.9 H 4.5-5.6 % Lipid Panel Test 02/23/17 06:14 Range/Units Triglycerides Level 164 H 0-150 mg/dl Cholesterol Level 161 0-200 mg/dl HDL Cholesterol 39 mg/dl Cholesterol/HDL Ratio 4.1 LDL Cholesterol, Calculated 89 mg/dl Medical Emergencies . Who to Call and When: Medical Emergencies: If at any time you feel your situation is an emergency, please call 911 immediately. . Non-Emergent Contact Non-Emergency issues call your: Primary Care Provider Call Non-Emergent contact if: you have a fever, your pain is not controlled, your pain is worsening, your pain is unusual for you, your pain is concerning you, you have any medication questions . . "Provider Documentation" section prepared by Renee Denise. . VTE Core Measure Inpt VTE Proph given/why not?: Enoxaparin (Lovenox)SQ
--- NOTE | 2017-03-17 01:46 | PULMONARY FUNCTION TEST ---
Spirometry shows a moderate decrease in forced vital capacity and FEV1 with a normal FEV1/FVC ratio. This would be compatible with moderate restriction. Repeat study done, following bronchodilators, showed a mild, but not significant, improvement in forced vital capacity and FEV1. Flow volume loops were consistent with spirometric findings. Lung volumes show a decrease in FRC, RV and TLC. This is consistent with moderate restriction. Diffusion capacity is modestly reduced to 56% of predicted. Advise clinical correlation.
== END 2017-03-12 14:39 | disposition home health service (06) ==
LOC: C.EDB 21:11 → C.MED 03-08 02:44 → ENRESERV 03-08 03:10
PROVIDERS: ADMIT Hospitalist; ATTEND Family Medicine
DX: K21.9 Gastro-esophageal reflux disease without esophagitis (principal); R04.2 Hemoptysis; N18.3 Chronic kidney disease, stage 3 (moderate); N17.9 Acute kidney failure, unspecified; I11.0 Hypertensive heart disease with heart failure; E11.40 Type 2 diabetes mellitus with diabetic neuropathy, unspecified; G43.909 Migraine, unspecified, not intractable, without status migrainosus; E11.9 Type 2 diabetes mellitus without complications; I50.42 Chronic combined systolic (congestive) and diastolic (congestive) heart failure; N40.1 Benign prostatic hyperplasia with lower urinary tract symptoms; E66.9 Obesity, unspecified; G47.33 Obstructive sleep apnea (adult) (pediatric); F41.8 Other specified anxiety disorders; E78.5 Hyperlipidemia, unspecified; M10.9 Gout, unspecified; G20 Parkinson's disease; Z83.3 Family history of diabetes mellitus; Z82.49 Family history of ischemic heart disease and other diseases of the circulatory system; Z79.899 Other long term (current) drug therapy; Z79.4 Long term (current) use of insulin; Z86.711 Personal history of pulmonary embolism

== ENCOUNTER → 2017-03-13 | Outpatient (CLI) | payer OTHER ==
[~2017-03-13] MED LIST changes: -LVNIS120 SC; +LVNIS150 SC; -OMEP40CA41 PO; +PRT40 PO; +VERA1TAB52 PO; +ZNT150 PO
[2017-03-13 14:32] LABS: BLOOD UREA NITROGEN 22 mg/dl (7-18); BUN/CREATININE RATIO 18.7 (10-20); CALCIUM 10.3 mg/dl (8.5-10.1); CARBON DIOXIDE 26 mmol/L (21-32); CHLORIDE 102 mmol/L (98-107); GLUCOSE 127 mg/dl (70-99); POTASSIUM 5.2 mmol/L (3.5-5.1); SODIUM 137 mmol/L (136-145)
== END | disposition home or self-care (01) ==
LOC: C.LABSPEC 13:06
PROVIDERS: ATTEND Family Medicine
DX: N17.9 Acute kidney failure, unspecified (principal); I82.409 Acute embolism and thrombosis of unspecified deep veins of unspecified lower extremity

== ENCOUNTER → 2017-03-14 | Outpatient (CLI) | payer OTHER ==
[~2017-03-14] MED LIST changes: +LVNIS120 SC; +OMEP40CA41 PO
== END | disposition home or self-care (01) ==
LOC: C.LAB 13:05
DX: I50.9 Heart failure, unspecified (principal); I25.10 Atherosclerotic heart disease of native coronary artery without angina pectoris

== ENCOUNTER 2017-04-29 16:28 | Emergency (ER) | payer OTHER ==
[~2017-04-29] VITALS: Ht 177.8 cm; Wt 125.5 kg
[~2017-04-29 16:28] MED LIST changes: -LVNIS120 SC; -LVNIS150 SC; +NVLGI7030 SC; -OMEP40CA41 PO; +ZNTT/150 PO
[2017-04-29 16:33] VITALS: TEMP 37.5; Ht 177.8 cm; Wt 125.5 kg
[2017-04-29 16:35] VITALS: O2SAT 97
--- NOTE | 2017-04-29 16:49 | EMERGENCY ROOM VISIT NOTE ---
History Report prepared by Tyra: Betito Hayden Under the Supervision of: Dr. Pancho Ratliff M.D. First contact with patient: 16:35 Chief Complaint: WEAKNESS Stated Complaint: DIZZY, WEAKNESS Nursing Triage Summary: pt presents from home via ALS per EMS report pt is experiencing dizziness, weakness, heavy chest, abd pain, upset stomach He had a potiential fever this AM he reports he felt hot and sweaty He has history of CHF and PE History of Present Illness The patient is a 62 year old male who presents to the Emergency Room with complaints of worsening weakness starting this morning. The patient's states that he feels like his body is "in a different place". The patient has additionally been complaining of chest heaviness starting after coming to the ED for PEs two weeks ago. He also notes that he has an intermittent cough, nauseam and he felt feverish this morning. The patient denies any vomiting, diarrhea, or pain with urination. He also reports being fatigued since he was in the ED two weeks ago, and this worsened today as well. Also, he states that he has been short of breath over the past two weeks. The patient is currently on Lovenox twice per day for his blood clots. He reports that he was recently taken off Lasix about a month or two ago. Source of History: patient Onset: this morning Position: other (global) Quality: other (weakness) Timing: worsening Associated Symptoms: + fevers, + cough, + chest pain, + SOB, + nausea, + fatigue, No vomiting, No diarrhea, No urinary symptoms Review of Systems See HPI for pertinent positives and negatives. A total of ten systems were reviewed and were otherwise negative. Past Medical & Surgical Medical Problems: (1) Catheter-associated urinary tract infection (2) Diabetes mellitus (3) Dyspnea (4) Gastroesophageal reflux disease (5) Gout (6) Parkinson's disease (7) Pulmonary embolism (8) Right upper extremity numbness (9) Syncope (10) Weakness Family History Cancer Diabetes mellitus FH: heart disease Hypertension Social History Smoking Status: Former Smoker Alcohol Use: none Drug Use: none Marital Status: Housing Status: lives alone Occupation Status: retired Current/Historical Medications Scheduled Allopurinol (Allopurinol), 100 MG PO DAILY Amantadine HCl (Amantadine HCl), 100 MG PO BID Ascorbic Acid (Vitamin C), 500 MG PO QAM Carbidopa/Levodopa (Sinemet Cr 50MG/200MG), 1 TAB PO BID Dutasteride (Avodart), 0.5 MG PO DAILY Ferrous Sulfate (Iron), 325 MG PO DAILY Fluoxetine (Prozac), 40 MG PO DAILY Insulin Aspart (Novolog Flexpen), 1 DOSE SC UD Insulin Glargine (Lantus), 35 UNITS SC AMPM Isosorbide Mononitrate (Isosorbide Mononitrate ER), 30 MG PO QAM Losartan Potassium (Cozaar), 50 MG PO DAILY Mirabegron (Myrbetriq Er), 50 MG PO DAILY Pantoprazole (Pantoprazole Sodium), 40 MG PO QAM Pregabalin (Lyrica), 300 MG PO BID Ranitidine HCl (Ranitidine HCl), 150 MG PO HS Simvastatin (Zocor), 20 MG PO QPM Spironolactone (Aldactone), 25 MG PO BID Tamsulosin Hcl (Flomax), 0.4 MG PO DAILY Verapamil Hcl (Verapamil Hcl Er), 120 MG PO HS Scheduled PRN Colchicine (Colchicine), 0.6 MG PO DAILY PRN for GOUT Oxycodone/Acetaminophen 5MG/325MG (Percocet 5MG/325MG), 1-2 TABLETS PO Q4H PRN for Pain Zolpidem Tartrate (Ambien), 10 MG PO HS PRN for Sleep Allergies Coded Allergies: Penicillins (Verified Allergy, Severe, 04/29/17) SEVERE RXN PER PT Cephalosporins (Verified Allergy, Unknown, 04/29/17) Sulfamethoxazole w/Trimethoprim (Verified Allergy, Unknown, ., 04/29/17) TAKES LASIX AT HOME Lisinopril (Verified Adverse Reaction, Intermediate, Cough, 04/29/17) Physical Exam Vital Signs Date Time Temp Pulse Resp B/P (MAP) Pulse Ox O2 Delivery O2 Flow Rate FiO2 04/29/17 19:27 88 16 135/72 98 Room Air 04/29/17 18:00 94 16 148/85 98 Room Air 04/29/17 17:13 98 20 147/89 97 Room Air 04/29/17 16:47 101 04/29/17 16:35 97 Room Air 04/29/17 16:33 37.5 105 18 141/100 98 Room Air Physical Exam GENERAL: Awake, alert, fatigued, chronically ill-appearing, in no distress HENT: Dry mucous membranes. Normocephalic, atraumatic. Oropharynx unremarkable. EYES: Normal conjunctiva. Sclera non-icteric. NECK: Supple. No nuchal rigidity. FROM. No JVD. RESPIRATORY: Diminished at the bases, but otherwise clear. CARDIAC: Regular rate, normal rhythm. Extremities warm and well perfused. Pulses equal. ABDOMEN: Obese abdomen, but soft. No tenderness to palpation. No rebound or guarding. No masses. RECTAL: Deferred. MUSCULOSKELETAL: Chest examination reveals no tenderness. The back is symmetrical on inspection without obvious abnormality. There is no CVA tenderness to palpation. No joint edema. LOWER EXTREMITIES: 2+ pitting edema in the bilateral lower extremities which are symmetric. NEURO: Normal sensorium. No sensory or motor deficits noted. SKIN: No rash or jaundice noted. Medical Decision & Procedures ER Provider Diagnostic Interpretation: Radiology results as stated below per my review and radiologist interpretation: CHEST ONE VIEW PORTABLE HISTORY: 62 years-old Male CHEST PAIN acute atypical chest pain with weakness and dizziness COMPARISON: Chest radiograph 04/15/2017, CTA chest 04/16/2017 TECHNIQUE: Portable AP view of the chest FINDINGS: Lungs are mildly hypoinflated. Cardiomediastinal and hilar silhouettes are within normal limits. No pneumothorax, pleural effusion, focal airspace consolidation or overt pulmonary edema. Mild right hemidiaphragmatic elevation persists. Bones of the chest are grossly intact. IMPRESSION: No acute cardiopulmonary process. The above report was generated using voice recognition software. It may contain grammatical, syntax or spelling errors. Electronically signed by: Rosas Granado M.D. 04/29/2017 6:36 PM Dictated Date/Time: 04/29/2017 6:34 PM Laboratory Results 04/29/17 16:18 Red Blood Count 4.78, Mean Corpuscular Volume 88.1, Mean Corpuscular Hemoglobin 29.1, Mean Corpuscular Hemoglobin Concent 33.0, Mean Platelet Volume 9.8, Neutrophils (%) (Auto) 62.3, Lymphocytes (%) (Auto) 26.6, Monocytes (%) (Auto) 7.1, Eosinophils (%) (Auto) 3.0, Basophils (%) (Auto) 0.5, Neutrophils # (Auto) 4.81, Lymphocytes # (Auto) 2.05, Monocytes # (Auto) 0.55, Eosinophils # (Auto) 0.23, Basophils # (Auto) 0.04 04/29/17 16:18 Test 04/29/17 16:18 04/29/17 17:50 White Blood Count 7.72 K/uL (4.8-10.8) Red Blood Count 4.78 M/uL (4.7-6.1) Hemoglobin 13.9 g/dL (14.0-18.0) Hematocrit 42.1 % (42-52) Mean Corpuscular Volume 88.1 fL (80-100) Mean Corpuscular Hemoglobin 29.1 pg (25-34) Mean Corpuscular Hemoglobin Concent 33.0 g/dl (32-36) Platelet Count 169 K/uL (130-400) Mean Platelet Volume 9.8 fL (7.4-10.4) Neutrophils (%) (Auto) 62.3 % Lymphocytes (%) (Auto) 26.6 % Monocytes (%) (Auto) 7.1 % Eosinophils (%) (Auto) 3.0 % Basophils (%) (Auto) 0.5 % Neutrophils # (Auto) 4.81 K/uL (1.4-6.5) Lymphocytes # (Auto) 2.05 K/uL (1.2-3.4) Monocytes # (Auto) 0.55 K/uL (0.11-0.59) Eosinophils # (Auto) 0.23 K/uL (0-0.5) Basophils # (Auto) 0.04 K/uL (0-0.2) RDW Standard Deviation 42.5 fL (36.4-46.3) RDW Coefficient of Variation 13.2 % (11.5-14.5) Immature Granulocyte % (Auto) 0.5 % Immature Granulocyte # (Auto) 0.04 K/uL (0.00-0.02) Anion Gap 6.0 mmol/L (3-11) Est Creatinine Clear Calc Drug Dose 79.2 ml/min Estimated GFR () 69.2 Estimated GFR (Non- 59.7 BUN/Creatinine Ratio 15.6 (10-20) Calcium Level 9.0 mg/dl (8.5-10.1) Phosphorus Level 2.8 mg/dl (2.5-4.9) Magnesium Level 2.1 mg/dl (1.8-2.4) Total Bilirubin 0.4 mg/dl (0.2-1) Direct Bilirubin < 0.1 mg/dl (0-0.2) Aspartate Amino Transf (AST/SGOT) 13 U/L (15-37) Alanine Aminotransferase (ALT/SGPT) 10 U/L (12-78) Alkaline Phosphatase 124 U/L (45-117) Total Creatine Kinase 97 U/L (39-308) Troponin I < 0.015 ng/ml (0-0.045) Pro-B-Type Natriuretic Peptide 54 pg/ml (0-900) Total Protein 7.8 gm/dl (6.4-8.2) Albumin 3.7 gm/dl (3.4-5.0) Lipase 144 U/L (73-393) Urine Color YELLOW Urine Appearance CLEAR (CLEAR) Urine pH 5.0 (4.5-7.5) Urine Specific [place] 1.034 (1.000-1.030) Urine Protein NEG (NEG) Urine Glucose (UA) 3+ (NEG) Urine Ketones TRACE (NEG) Urine Occult Blood NEG (NEG) Urine Nitrite NEG (NEG) Urine Bilirubin NEG (NEG) Urine Urobilinogen NEG (NEG) Urine Leukocyte Esterase NEG (NEG) Laboratory results reviewed by me Medications Administered Medications (Trade) Dose Ordered Sig/Apryl Route Start Time Stop Time Status Last Admin Dose Admin Ondansetron HCl (Zofran Inj) 4 mg NOW STAT IV 04/29/17 17:06 04/29/17 17:08 DC 04/29/17 17:11 4 MG Sodium Chloride 500 ml @ 999 mls/hr Q31M STAT IV 04/29/17 17:46 04/29/17 18:16 DC 04/29/17 17:46 999 MLS/HR ECG Indication: weakness Rate (beats per minute): 104 Rhythm: sinus tachycardia Findings: 1st degree AV block, no acute ischemic change, other (Normal axis) Comparison ECG Date: 04/15/17 Change: no significant change ED Course 1635: The patient was evaluated in room B2. A complete history and physical exam was performed. 1706: Zofran 4mg IV 1746: Sodium Chloride 500 ml @ 999 mls/hr IV 1917: I reevaluated the patient. Discussed results and discharge instructions: He verbalized understanding and agreement. The patient is ready for discharge. Medical Decision I reviewed the patient's past medical history, medications, and the nursing notes as described above. Differential Diagnoses include: dehydration, electrolyte abnormality, pneumonia , bronchitis, ACS, CHF, UTI. The patient is a 52-year-old gentleman with a past medical history of recurrent PEs on Lovenox who presents emergency department with worsening generalized fatigue over the past couple of weeks after being seen in the ED for chest pain 2 weeks [employer], now reporting that the fatigue became overwhelming today and so came to the emergency department. The patient does have follow-up with his PCP tomorrow but could not wait given his severe fatigue. He reports that his chest pain has been constant for weeks and is unchanged. Denies fevers, chills , nausea, vomiting, diarrhea, or dysuria. On arrival the patient appears uncomfortable but in no acute distress. He is afebrile with stable vital signs. Labs unremarkable including wbc and trop wnl. CXR negative for PNA. Patient feeling mildly improved after IVF. Given no emergent findings and patient has pcp f/u tomorrow, discharge is reasonable. Patient agreeable with this plan. Findings and plan for follow-up reviewed with patient. Patient agreeable however patient left ED prior to getting written instructions. Medication Reconcilliation Current Medication List: was personally reviewed by me Blood Pressure Screening Patient's blood pressure: Elevated blood pressure Blood pressure disposition: Referred to PCP Impression Primary Impression: General weakness Scribe Attestation The scribe's documentation has been prepared under my direction and personally reviewed by me in its entirety. I confirm that the note above accurately reflects all work, treatment, procedures, and medical decision making performed by me. Departure Information Dispostion Home / Self-Care Referrals Reza Ocasio Jr,D.O. (PCP) Patient Instructions My [facility]
[2017-04-29 17:01] LABS: BASO % 0.5 %; BASO ABS # 0.04 K/uL (0-0.2); COMPLETE YES; HEMATOCRIT 42.1 % (42-52); IG% 0.5 %; LYMPH % 26.6 %; LYMPH ABS # 2.05 K/uL (1.2-3.4); MEAN CELL VOLUME 88.1 fL (80-100); MEAN CORPUSCULAR HEMOGLOBIN 29.1 pg (25-34); MEAN PLATELET VOLUME 9.8 fL (7.4-10.4); MONO % 7.1 %; NEUT % 62.3 %; PLATELET COUNT 169 K/uL (130-400); RED BLOOD COUNT 4.78 M/uL (4.7-6.1); WHITE BLOOD COUNT 7.72 K/uL (4.8-10.8)
[2017-04-29] MEDS ORDERED: ONDANSETRON INJ 2 MG/ML 2 ML VIAL IV STA (17:06)
[2017-04-29 17:09] LABS: ALT/SGPT 10 U/L (12-78); AST/SGOT 13 U/L (15-37); BLOOD UREA NITROGEN 20 mg/dl (7-18); BUN/CREATININE RATIO 15.6 (10-20); CARBON DIOXIDE 27 mmol/L (21-32); CHLORIDE 102 mmol/L (98-107); CREATININE 1.27 mg/dl (0.60-1.40); GLUCOSE 226 mg/dl (70-99); MAGNESIUM 2.1 mg/dl (1.8-2.4); POTASSIUM 4.3 mmol/L (3.5-5.1); SODIUM 135 mmol/L (136-145)
[2017-04-29 17:12] LABS: ALKALINE PHOSPHATASE 124 U/L (45-117); PHOSPHORUS 2.8 mg/dl (2.5-4.9)
[2017-04-29] MEDS ORDERED: SODIUM CHLORIDE 0.9% 500ML 500 ML IV STA (17:46)
[2017-04-29] MEDS ORDERED: NVLGIPEN SC (17:51)
[2017-04-29 18:18] LABS: URINE APPEARANCE CLEAR (CLEAR); URINE BILIRUBIN NEG (NEG); URINE COLOR YELLOW; URINE NITRITE NEG (NEG); URINE SPECIFIC GRAVITY 1.034 (1.000-1.030); UROBILINOGEN NEG (NEG)
[2017-04-29 18:20] LABS: MANUAL MICROSCOPIC REQUIRED? NO; REVIEW REQ? NO
--- NOTE | 2017-04-29 18:37 | DIAGNOSTIC IMAGING REPORT ---
CHEST ONE VIEW PORTABLE HISTORY: 62 years-old Male CHEST PAIN acute atypical chest pain with weakness and dizziness COMPARISON: Chest radiograph 04/15/2017, CTA chest 04/16/2017 TECHNIQUE: Portable AP view of the chest FINDINGS: Lungs are mildly hypoinflated. Cardiomediastinal and hilar silhouettes are within normal limits. No pneumothorax, pleural effusion, focal airspace consolidation or overt pulmonary edema. Mild right hemidiaphragmatic elevation persists. Bones of the chest are grossly intact. IMPRESSION: No acute cardiopulmonary process. The above report was generated using voice recognition software. It may contain grammatical, syntax or spelling errors. Electronically signed by: Rosas Granado M.D. 04/29/2017 6:36 PM Dictated Date/Time: 04/29/2017 6:34 PM
[2017-04-29 19:27] VITALS: BP 135/72; PULSE 88; O2SAT 98
== END 2017-04-29 19:35 | disposition home or self-care (01) ==
LOC: EDBD 16:28 → C.EDB 16:29
DX: R53.1 Weakness (principal); E11.9 Type 2 diabetes mellitus without complications; K21.9 Gastro-esophageal reflux disease without esophagitis; M10.9 Gout, unspecified; Z86.711 Personal history of pulmonary embolism; G20 Parkinson's disease; Z87.440 Personal history of urinary (tract) infections; Z80.9 Family history of malignant neoplasm, unspecified; Z83.3 Family history of diabetes mellitus; Z82.49 Family history of ischemic heart disease and other diseases of the circulatory system; Z87.891 Personal history of nicotine dependence; Z79.4 Long term (current) use of insulin; Z79.899 Other long term (current) drug therapy

== ENCOUNTER 2017-06-30 18:35 | Emergency (ER) | payer OTHER ==
[~2017-06-30] VITALS: Ht 177.8 cm; Wt 125.0 kg
[~2017-06-30 18:35] MED LIST changes: -FURO80TA63 PO; -NVLGI7030 SC; +NVLGIPEN SC; -ZNTT/150 PO
[2017-06-30 18:39] VITALS: TEMP 36.8; Ht 177.8 cm; Wt 125.0 kg
[2017-06-30] MEDS ORDERED: ALBUT/IPRATROP 3MG/0.5MG NEB 3 ML VIAL INH STA (18:47)
--- NOTE | 2017-06-30 19:21 | DIAGNOSTIC IMAGING REPORT ---
CHEST ONE VIEW PORTABLE CLINICAL HISTORY: CHEST PAIN dyspnea COMPARISON STUDY: No previous studies for comparison. FINDINGS: The bones soft tissues and hemidiaphragms are normal. The cardiomediastinal silhouette is normal. The lungs are clear. The pulmonary vasculature is normal. IMPRESSION: Negative chest. The above report was generated using voice recognition software. It may contain grammatical, syntax or spelling errors. Electronically signed by: Kannan Bhakta M.D. 06/30/2017 7:20 PM Dictated Date/Time: 06/30/2017 7:20 PM
[2017-06-30 19:35] VITALS: O2SAT 95
[2017-06-30 19:37] LABS: BASO % 0.4 %; BASO ABS # 0.03 K/uL (0-0.2); EOS % 4.1 %; EOS ABS # 0.31 K/uL (0-0.5); HEMATOCRIT 43.8 % (42-52); HEMOGLOBIN 14.9 g/dL (14.0-18.0); IG# 0.02 K/uL (0.00-0.02); LYMPH % 23.2 %; LYMPH ABS # 1.76 K/uL (1.2-3.4); MEAN CELL VOLUME 86.6 fL (80-100); MEAN CORPUSCULAR HEMOGLOBIN 29.4 pg (25-34); MEAN PLATELET VOLUME 9.5 fL (7.4-10.4); MONO % 6.1 %; MONO ABS # 0.46 K/uL (0.11-0.59); NEUT % 65.9 %; NEUT ABS # 4.99 K/uL (1.4-6.5); NUCLEATED RED BLOOD CELL ABS 0.05 K/uL (0-0); PLATELET COUNT 186 K/uL (130-400); RED CELL DISTRIBUTION WIDTH SD 41.1 fL (36.4-46.3); WHITE BLOOD COUNT 7.57 K/uL (4.8-10.8)
[2017-06-30] MEDS ORDERED: WARF5TAB90 PO (20:07)
[2017-06-30] MEDS ORDERED: LVNIS150 INJ (20:07)
[2017-06-30 20:17] LABS: INFLUENZA B ANTIGEN Neg for Influ B (NEG)
[2017-06-30 20:38] LABS: ALBUMIN 3.5 gm/dl (3.4-5.0); ALKALINE PHOSPHATASE 130 U/L (45-117); ALT/SGPT 24 U/L (12-78); AST/SGOT 13 U/L (15-37); BLOOD UREA NITROGEN 18 mg/dl (7-18); CALCIUM 8.9 mg/dl (8.5-10.1); CARBON DIOXIDE 28 mmol/L (21-32); GLUCOSE 284 mg/dl (70-99); LIPASE 212 U/L (73-393); POTASSIUM 4.4 mmol/L (3.5-5.1); SODIUM 134 mmol/L (136-145)
[2017-06-30] MEDS ORDERED: OSELTAMIVIR PHOSPHATE 75 MG CAP PO STA (20:44)
[2017-06-30] MEDS ORDERED: OSEL75CA23 PO (21:09)
--- NOTE | 2017-06-30 21:11 | EMERGENCY ROOM VISIT NOTE ---
History Report prepared by Tyra: Macy Najera Under the Supervision of: Dr. Pancho Ratliff M.D. First contact with patient: 18:44 Chief Complaint: COUGH Stated Complaint: FATIGUE, CHEST PAIN, LOWER PAIN Nursing Triage Summary: "I'm sick, tired and sore", pt reports SOB with ambulation, sharp chest pains "when I get coughing or sneezing real bad", productive cough. symptoms for the past 5 days History of Present Illness The patient is a 62 year old male who presents to the Emergency Room with complaints of persistent cough starting several days ago. He decided to come to the ED today because he is feeling SOB with walking even short distances. He is feeling weak. He is worried about pneumonia as several people living in his building have had pneumonia recently. He reports having congestion. He has had burning with urination for a couple days and is concerned for UTI. He has had UTI in the past. He has had loose stools, but no diarrhea. He vomited yesterday. He is currently not nauseous. He reports blurry vision which also started a couple days ago. He is seeing things that are not there. He has not seen an eye doctor in 2 years. He has a history of cataract surgery. He has a history of Parkinson's disease which has been feeling worse since the cough started. He denies any tobacco or alcohol use. He is not on inhalers at home. He still has his gallbladder. He has a history of prostate problems. Source of History: patient Onset: several days ago Position: other (global) Quality: other (cough) Timing: other (persistent) Associated Symptoms: + SOB, + vomiting, + urinary symptoms, + weakness, No nausea, No diarrhea Note: Pt reports vision changes, congestion. Review of Systems See HPI for pertinent positives and negatives. A total of ten systems were reviewed and were otherwise negative. Past Medical & Surgical Medical Problems: (1) Catheter-associated urinary tract infection (2) Diabetes mellitus (3) Dyspnea (4) Gastroesophageal reflux disease (5) Gout (6) Parkinson's disease (7) Pulmonary embolism (8) Right upper extremity numbness (9) Syncope (10) Weakness Family History Cancer Diabetes mellitus FH: heart disease Hypertension Social History Smoking Status: Never Smoker Alcohol Use: none Drug Use: none Marital Status: Housing Status: lives alone Occupation Status: retired Current/Historical Medications Scheduled Allopurinol (Allopurinol), 100 MG PO DAILY Amantadine HCl (Amantadine HCl), 100 MG PO BID Ascorbic Acid (Vitamin C), 500 MG PO QAM Carbidopa/Levodopa (Sinemet Cr 50MG/200MG), 1 TAB PO BID Dutasteride (Avodart), 0.5 MG PO DAILY Enoxaparin (Lovenox), 150 MG INJ BID Ferrous Sulfate (Iron), 325 MG PO DAILY Fluoxetine (Prozac), 40 MG PO DAILY Insulin Aspart (Novolog Flexpen), 1 DOSE SC UD Insulin Glargine (Lantus), 40 UNITS SC AMPM Isosorbide Mononitrate (Isosorbide Mononitrate ER), 30 MG PO QAM Losartan Potassium (Cozaar), 50 MG PO DAILY Mirabegron (Myrbetriq Er), 50 MG PO DAILY Oseltamivir Phosphate (Tamiflu), 1 CAP PO BID Pantoprazole (Pantoprazole Sodium), 40 MG PO QAM Pregabalin (Lyrica), 300 MG PO BID Ranitidine HCl (Ranitidine HCl), 150 MG PO HS Simvastatin (Zocor), 20 MG PO QPM Spironolactone (Aldactone), 25 MG PO BID Tamsulosin Hcl (Flomax), 0.4 MG PO DAILY Verapamil Hcl (Verapamil Hcl Er), 120 MG PO HS Warfarin Sodium (Coumadin), 12.5 MG PO DAILY Scheduled PRN Colchicine (Colchicine), 0.6 MG PO DAILY PRN for GOUT Oxycodone/Acetaminophen 5MG/325MG (Percocet 5MG/325MG), 1-2 TABLETS PO Q4H PRN for Pain Zolpidem Tartrate (Ambien), 10 MG PO HS PRN for Sleep Allergies Coded Allergies: Penicillins (Verified Allergy, Severe, 06/30/17) SEVERE RXN PER PT Cephalosporins (Verified Allergy, Unknown, 06/30/17) Sulfamethoxazole w/Trimethoprim (Verified Allergy, Unknown, ., 06/30/17) TAKES LASIX AT HOME Lisinopril (Verified Adverse Reaction, Intermediate, Cough, 06/30/17) Physical Exam Vital Signs Date Time Temp Pulse Resp B/P (MAP) Pulse Ox O2 Delivery O2 Flow Rate FiO2 06/30/17 21:23 113 20 159/119 96 1/16/18 19:48 109 06/30/17 19:35 95 Room Air 06/30/17 18:44 95 Room Air 06/30/17 18:39 36.8 132 22 189/110 95 Room Air Physical Exam GENERAL: Awake, alert, uncomfortable-appearing, in no distress HENT: Normocephalic, atraumatic. Dry cracked mucous membranes. Boggy nasal turbinates. EYES: Normal conjunctiva. Sclera non-icteric. NECK: Supple. No nuchal rigidity. FROM. No JVD. RESPIRATORY: Diminished at the bases, otherwise clear to auscultation. CARDIAC: Regular rate, normal rhythm. Extremities warm and well perfused. Pulses equal. ABDOMEN: Obese abdomen, soft. NTTP. No rebound or guarding. No masses. RECTAL: Deferred. MUSCULOSKELETAL: Chest examination reveals no tenderness. The back is symmetrical on inspection without obvious abnormality. There is no CVA tenderness to palpation. No joint edema. LOWER EXTREMITIES: Calves are equal size bilaterally and non-tender. No edema. No discoloration. NEURO: Normal sensorium. No sensory or motor deficits noted. SKIN: No rash or jaundice noted. Medical Decision & Procedures ER Provider Diagnostic Interpretation: Radiology results as stated below per my review and radiologist interpretation: CHEST ONE VIEW PORTABLE CLINICAL HISTORY: CHEST PAIN dyspnea COMPARISON STUDY: No previous studies for comparison. FINDINGS: The bones soft tissues and hemidiaphragms are normal. The cardiomediastinal silhouette is normal. The lungs are clear. The pulmonary vasculature is normal. IMPRESSION: Negative chest. The above report was generated using voice recognition software. It may contain grammatical, syntax or spelling errors. Electronically signed by: Kannan Bhakta M.D. 06/30/2017 7:20 PM Dictated Date/Time: 06/30/2017 7:20 PM Laboratory Results 06/30/17 19:25 Red Blood Count 5.06, Mean Corpuscular Volume 86.6, Mean Corpuscular Hemoglobin 29.4, Mean Corpuscular Hemoglobin Concent 34.0, Mean Platelet Volume 9.5, Neutrophils (%) (Auto) 65.9, Lymphocytes (%) (Auto) 23.2, Monocytes (%) (Auto) 6.1, Eosinophils (%) (Auto) 4.1, Basophils (%) (Auto) 0.4, Neutrophils # (Auto) 4.99, Lymphocytes # (Auto) 1.76, Monocytes # (Auto) 0.46, Eosinophils # (Auto) 0.31, Basophils # (Auto) 0.03 06/30/17 19:25 Test 06/30/17 19:25 06/30/17 19:40 06/30/17 19:55 White Blood Count 7.57 K/uL (4.8-10.8) Red Blood Count 5.06 M/uL (4.7-6.1) Hemoglobin 14.9 g/dL (14.0-18.0) Hematocrit 43.8 % (42-52) Mean Corpuscular Volume 86.6 fL (80-100) Mean Corpuscular Hemoglobin 29.4 pg (25-34) Mean Corpuscular Hemoglobin Concent 34.0 g/dl (32-36) Platelet Count 186 K/uL (130-400) Mean Platelet Volume 9.5 fL (7.4-10.4) Neutrophils (%) (Auto) 65.9 % Lymphocytes (%) (Auto) 23.2 % Monocytes (%) (Auto) 6.1 % Eosinophils (%) (Auto) 4.1 % Basophils (%) (Auto) 0.4 % Neutrophils # (Auto) 4.99 K/uL (1.4-6.5) Lymphocytes # (Auto) 1.76 K/uL (1.2-3.4) Monocytes # (Auto) 0.46 K/uL (0.11-0.59) Eosinophils # (Auto) 0.31 K/uL (0-0.5) Basophils # (Auto) 0.03 K/uL (0-0.2) RDW Standard Deviation 41.1 fL (36.4-46.3) RDW Coefficient of Variation 13.0 % (11.5-14.5) Immature Granulocyte % (Auto) 0.3 % Immature Granulocyte # (Auto) 0.02 K/uL (0.00-0.02) Nucleated RBC Absolute Count (auto) 0.05 K/uL (0-0) Nucleated Red Blood Cells % 0.7 % Prothrombin Time 10.5 SECONDS (9.0-12.0) Prothromb Time International Ratio 1.0 (0.9-1.1) Anion Gap 6.0 mmol/L (3-11) Est Creatinine Clear Calc Drug Dose 71.7 ml/min Estimated GFR () 61.5 Estimated GFR (Non- 53.1 BUN/Creatinine Ratio 12.6 (10-20) Calcium Level 8.9 mg/dl (8.5-10.1) Total Bilirubin 0.5 mg/dl (0.2-1) Direct Bilirubin < 0.1 mg/dl (0-0.2) Aspartate Amino Transf (AST/SGOT) 13 U/L (15-37) Alanine Aminotransferase (ALT/SGPT) 24 U/L (12-78) Alkaline Phosphatase 130 U/L (45-117) Troponin I < 0.015 ng/ml (0-0.045) Pro-B-Type Natriuretic Peptide 101 pg/ml (0-900) Total Protein 8.0 gm/dl (6.4-8.2) Albumin 3.5 gm/dl (3.4-5.0) Lipase 212 U/L (73-393) Influenza Type A Antigen Neg for Influ A (NEG) Influenza Type B Antigen Neg for Influ B (NEG) Urine Color YELLOW Urine Appearance CLEAR (CLEAR) Urine pH 5.0 (4.5-7.5) Urine Specific [place] 1.039 (1.000-1.030) Urine Protein TRACE (NEG) Urine Glucose (UA) 3+ (NEG) Urine Ketones TRACE (NEG) Urine Occult Blood NEG (NEG) Urine Nitrite NEG (NEG) Urine Bilirubin NEG (NEG) Urine Urobilinogen NEG (NEG) Urine Leukocyte Esterase NEG (NEG) Urine WBC (Auto) 1-5 /hpf (0-5) Urine RBC (Auto) 0-4 /hpf (0-4) Urine Hyaline Casts (Auto) 1-5 /lpf (0-5) Urine Epithelial Cells (Auto) 10-20 /lpf (0-5) Urine Bacteria (Auto) NEG (NEG) Laboratory results reviewed by me Medications Administered Medications (Trade) Dose Ordered Sig/Apryl Route Start Time Stop Time Status Last Admin Dose Admin Albuterol/ Ipratropium (Duoneb) 3 ml NOW STAT INH 06/30/17 18:47 06/30/17 18:55 DC 06/30/17 19:41 3 ML Oseltamivir Phosphate (Tamiflu Cap) 75 mg NOW STAT PO 06/30/17 20:44 06/30/17 20:45 DC 06/30/17 21:21 75 MG ECG Indication: SOB/dyspnea Rate (beats per minute): 114 Rhythm: sinus tachycardia Findings: no acute ischemic change, other (normal axis) ED Course 1845: The patient was evaluated in room A10. A complete history and physical exam was performed. 2046: I reevaluated the patient. Discussed results and discharge instructions: He verbalized understanding and agreement. The patient is ready for discharge. Medical Decision I reviewed the patient's past medical history, medications, and the nursing notes as described above. Differential diagnosis: Etiologies such as infections, reactive airway disease, pneumonia, pneumothorax , COPD, CHF, cardiac ischemia, pulmonary embolism, musculoskeletal, gastrointestinal, influenza, as well as others were entertained. 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 On arrival the patient is in NAD, AFVSS. EKG unchanged/unremarkable. Trop negative in the setting of constant sx x 2 days. Labs unremarkable including wbc, BNP wnl. CXR negative. Flu screen negative, however given patient's sx with ?onset <48 hours and comorbidities will tx empirically give Flu PCR not available, and high community prevalence. Patient given single dose neb but denies any improvement. Sx most likely 2/2 viral URI. Plan for Tamiflu and pcp f/u. Findings and plan for follow-up reviewed with patient. Patient agreeable and d/c'd per discharge instructions. Medication Reconcilliation Current Medication List: was personally reviewed by me Blood Pressure Screening Patient's blood pressure: Elevated blood pressure Blood pressure disposition: Elevated BP felt to be situational Impression Primary Impression: Upper respiratory infection with cough and congestion Scribe Attestation The scribe's documentation has been prepared under my direction and personally reviewed by me in its entirety. I confirm that the note above accurately reflects all work, treatment, procedures, and medical decision making performed by me. Departure Information Dispostion Home / Self-Care Prescriptions Oseltamivir Phosphate (Tamiflu) 75 Mg Cap 1 CAP PO BID for 5 Days, #10 CAP Prov: Pancho Ratliff M.D. 06/30/17 Referrals Reza Ocasio Jr,D.O. (PCP) Patient Instructions ED Flu, ED Upper Resp Infec No Abx Tx, My [facility] Additional Instructions Please follow up with your primary care physician in the next 1-3 days for re- evaluation. You likely have a viral upper respiratory infection. Otherwise, your exam, EKG, chest xray, and lab results did not show signs of an emergent condition at this time. Tamiflu as directed. Return to the emergency department for worsening symptoms as described in the accompanying instructions.
[2017-06-30 21:23] VITALS: BP 159/119; PULSE 113; O2SAT 96
== END 2017-06-30 21:25 | disposition home or self-care (01) ==
LOC: C.EDB 18:36 → C.EDA 21:25
DX: J06.9 Acute upper respiratory infection, unspecified (principal); Z87.440 Personal history of urinary (tract) infections; E11.9 Type 2 diabetes mellitus without complications; G20 Parkinson's disease; K21.9 Gastro-esophageal reflux disease without esophagitis; M10.9 Gout, unspecified; I12.9 Hypertensive chronic kidney disease with stage 1 through stage 4 chronic kidney disease, or unspecified chronic kidney disease; N18.9 Chronic kidney disease, unspecified; G47.33 Obstructive sleep apnea (adult) (pediatric); Z86.711 Personal history of pulmonary embolism; Z86.718 Personal history of other venous thrombosis and embolism; Z83.3 Family history of diabetes mellitus; Z82.49 Family history of ischemic heart disease and other diseases of the circulatory system; Z79.01 Long term (current) use of anticoagulants; Z79.4 Long term (current) use of insulin; Z79.899 Other long term (current) drug therapy

== ENCOUNTER 2017-07-10 16:27 | Observation (INO) | payer OTHER ==
[~2017-07-10] VITALS: Ht 177.8 cm; Wt 126.9 kg
[~2017-07-10 16:27] MED LIST changes: -ASCO500T3 PO; -COLC0.6T54 PO; -DUTA0.5C PO; -FERR1TAB23 PO; -FLUO40CA8 PO; -INSDGI SC; -ISOS-11 PO; -MIRA1TAB3 PO; -NVLGIPEN SC; -OXYC-57 PO; -SIMV20TA2 PO; -SPIR25TA PO; -TAMS0.4C38 PO; +WARF5TAB90 PO; -ZOLP10TA PO
[2017-07-10] MEDS ORDERED: SIMV20TA2 PO (17:27)
[2017-07-10] MEDS ORDERED: AMLODIPINE BESYLATE 5 MG TAB PO ONE (17:30)
[2017-07-10] MEDS ORDERED: WARF5TAB90 PO (17:46)
[2017-07-10] MEDS ORDERED: AZIT250T PO (17:46)
[2017-07-10] MEDS ORDERED: AMLO-114 PO (17:46)
[2017-07-10] MEDS ORDERED: NVLGIPEN SC (17:51)
[2017-07-10 18:03] LABS: BASO % 0.3 %; BASO ABS # 0.02 K/uL (0-0.2); EOS % 4.5 %; HEMATOCRIT 42.2 % (42-52); HEMOGLOBIN 14.4 g/dL (14.0-18.0); IG# 0.02 K/uL (0.00-0.02); LYMPH % 27.6 %; LYMPH ABS # 1.84 K/uL (1.2-3.4); MEAN CELL VOLUME 85.6 fL (80-100); MEAN CORPUSCULAR HEMOGLOBIN 29.2 pg (25-34); MEAN CORPUSCULAR HGB CONC 34.1 g/dl (32-36); MEAN PLATELET VOLUME 9.3 fL (7.4-10.4); MONO % 5.7 %; MONO ABS # 0.38 K/uL (0.11-0.59); NEUT % 61.6 %; NEUT ABS # 4.11 K/uL (1.4-6.5); PLATELET COUNT 172 K/uL (130-400); RED CELL DISTRIBUTION WIDTH CV 13.2 % (11.5-14.5); RED CELL DISTRIBUTION WIDTH SD 41.3 fL (36.4-46.3); WHITE BLOOD COUNT 6.67 K/uL (4.8-10.8)
[2017-07-10 18:12] LABS: INR 1.1 (0.9-1.1); PTT PATIENT 30.6 SECONDS (21.0-31.0)
--- NOTE | 2017-07-10 18:13 | DIAGNOSTIC IMAGING REPORT ---
HEAD WITHOUT CONTRAST (CT) CLINICAL HISTORY: 62 years-old Male with eval for bleed. Acute headache. TECHNIQUE: Multiple axial CT images of the head were obtained without contrast. A dose lowering technique was utilized adhering to the principles of ALARA. CT DOSE: 729.78 mGycm COMPARISON: CT head 03/10/2017. FINDINGS: No acute intracranial hemorrhage, midline shift, intracranial mass, hydrocephalus, territorial ischemia or abnormal extra-axial collection. Mild bifrontal atrophy. Ill-defined areas of low-attenuation within the periventricular white matter suggests chronic microvascular ischemic changes, unchanged. Probable remote lacunar infarction of the right lentiform nucleus. The calvarium is intact. The mastoid air cells, and middle ear cavities are clear. Mild mucosal thickening of the ethmoid air cells. Small 4 mm osteoma of the left ethmoid air cells, image 9 series 3. IMPRESSION: No acute intracranial abnormality. The above report was generated using voice recognition software. It may contain grammatical, syntax or spelling errors. Electronically signed by: Rosas Granado M.D. 07/10/2017 6:12 PM Dictated Date/Time: 07/10/2017 6:09 PM
[2017-07-10 18:24] LABS: ALBUMIN 3.6 gm/dl (3.4-5.0); ALT/SGPT 29 U/L (12-78); AST/SGOT 14 U/L (15-37); BLOOD UREA NITROGEN 13 mg/dl (7-18); CALCIUM 8.8 mg/dl (8.5-10.1); CARBON DIOXIDE 24 mmol/L (21-32); CREATININE 1.14 mg/dl (0.60-1.40); GLUCOSE 254 mg/dl (70-99); POTASSIUM 3.7 mmol/L (3.5-5.1); SODIUM 133 mmol/L (136-145)
[2017-07-10 18:27] LABS: ALKALINE PHOSPHATASE 120 U/L (45-117); TOTAL PROTEIN 7.9 gm/dl (6.4-8.2)
--- NOTE | 2017-07-10 18:29 | DIAGNOSTIC IMAGING REPORT ---
CHEST 2 VIEWS ROUTINE HISTORY: 62 years-old Male eval for pna acute atypical chest pain and cough. COMPARISON: Chest radiograph 06/30/2017 TECHNIQUE: AP and lateral views of the chest FINDINGS: Cardiomediastinal and hilar silhouettes are within normal limits. There is no pneumothorax, pleural effusion, focal airspace consolidation or overt pulmonary edema. Mild right hemidiaphragmatic elevation. Bones of the chest appear grossly intact. Degenerative changes are seen within the shoulders and spine. IMPRESSION: No acute process. The above report was generated using voice recognition software. It may contain grammatical, syntax or spelling errors. Electronically signed by: Rosas Granado M.D. 07/10/2017 6:27 PM Dictated Date/Time: 07/10/2017 6:26 PM
[2017-07-10] MEDS ORDERED: LABETALOL HCL IV 5 MG/ML 20ML IV STA (18:33)
--- NOTE | 2017-07-10 18:59 | EMERGENCY ROOM VISIT NOTE ---
History Report prepared by Tyra: Macy Najera Under the Supervision of: Dr. Carroll Pinzon M.D. First contact with patient: 16:40 Chief Complaint: HYPERTENSION Stated Complaint: HYPERTENSION, HEADACHE History of Present Illness The patient is a 62 year old male who presents to the Emergency Room with complaints of persistent hypertension starting 3 days ago. He states that his blood pressure has been as high as 290/190. He notes that when he is measuring these high blood pressures, he is just sitting and not stressed out. He has been feeling hot. He started having a headache at 1330 this afternoon. He has had headaches before. The light is bothering his eyes. He is unsure of fever. He has mid chest pain which he has had for years. He has this pain daily. He describes it as how he feels when he is anxious and SOB. He denies any changes in his chest pain. He denies any black stool or bloody stool. His leg swelling is at baseline. He has had spikes in his blood pressure before. He has been having trouble with his blood pressure for the past 1-1.5 years. The patient is on blood pressure medications. His PCP has prescribed him a new regimen of blood pressure medications last week. He has not been able to pick these prescriptions up. He has continued to take his old blood pressure medications. He is on Lovenox and Coumadin which he has been taking. He has a history of PE and "multiple blood disorders". He does not feel like he has a PE. Source of History: patient Onset: 3 days ago Position: other (global) Symptom Intensity: as high as 290/190 Quality: other (high blood pressure) Timing: other (persistent) Associated Symptoms: + headache, + chest pain, No melena, No hematochezia Note: Pt reports feeling hot, light sensitivity. Review of Systems See HPI for pertinent positives & negatives. A total of 10 systems reviewed and were otherwise negative. Past Medical & Surgical Medical Problems: (1) Catheter-associated urinary tract infection (2) Diabetes mellitus (3) Dyspnea (4) Gastroesophageal reflux disease (5) Gout (6) Parkinson's disease (7) Pulmonary embolism (8) Right upper extremity numbness (9) Syncope (10) Weakness Family History Cancer Diabetes mellitus FH: heart disease Hypertension Social History Smoking Status: Former Smoker Alcohol Use: none Drug Use: none Marital Status: Housing Status: lives alone Occupation Status: retired Current/Historical Medications Scheduled Allopurinol (Allopurinol), 100 MG PO DAILY Amantadine HCl (Amantadine HCl), 100 MG PO BID Amlodipine (Norvasc), 10 MG PO DAILY Ascorbic Acid (Vitamin C), 500 MG PO QAM Azithromycin (Zithromax), 250 MG PO UD Carbidopa/Levodopa (Sinemet Cr 50MG/200MG), 1 TAB PO BID Dutasteride (Avodart), 0.5 MG PO DAILY Enoxaparin (Lovenox), 150 MG INJ BID Ferrous Sulfate (Iron), 325 MG PO DAILY Fluoxetine (Prozac), 40 MG PO DAILY Insulin Aspart (Novolog Flexpen), 1 DOSE SC UD Insulin Glargine (Lantus), 40 UNITS SC AMPM Isosorbide Mononitrate (Isosorbide Mononitrate ER), 30 MG PO QAM Losartan Potassium (Cozaar), 100 MG PO DAILY Mirabegron (Myrbetriq Er), 50 MG PO DAILY Pantoprazole (Pantoprazole Sodium), 40 MG PO QAM Pregabalin (Lyrica), 300 MG PO BID Ranitidine HCl (Ranitidine HCl), 150 MG PO HS Simvastatin (Zocor), 20 MG PO QPM Spironolactone (Aldactone), 25 MG PO BID Tamsulosin Hcl (Flomax), 0.4 MG PO DAILY Warfarin Sodium (Coumadin), 10 MG PO DAILY Scheduled PRN Colchicine (Colchicine), 0.6 MG PO DAILY PRN for GOUT Oxycodone/Acetaminophen 5MG/325MG (Percocet 5MG/325MG), 1-2 TABLETS PO Q4H PRN for Pain Zolpidem Tartrate (Ambien), 10 MG PO HS PRN for Sleep Allergies Coded Allergies: Penicillins (Verified Allergy, Severe, 06/30/17) SEVERE RXN PER PT Cephalosporins (Verified Allergy, Unknown, 06/30/17) Sulfamethoxazole w/Trimethoprim (Verified Allergy, Unknown, ., 06/30/17) TAKES LASIX AT HOME Lisinopril (Verified Adverse Reaction, Intermediate, Cough, 06/30/17) Physical Exam Vital Signs Date Time Temp Pulse Resp B/P (MAP) Pulse Ox O2 Delivery O2 Flow Rate FiO2 07/10/17 17:54 116/119 07/10/17 16:38 97 Room Air 07/10/17 16:38 36.9 11 20 173/109 97 Room Air Physical Exam Constitutional: Vital signs reviewed. Eyes: Pupils are equal round reactive to light. Conjunctiva are noninjected. ENT: Pharynx is clear without erythema or exudate. Mucous membranes are moist. Neck supple without meningeal signs. Respiratory: Clear to auscultation bilaterally. Breath sounds are equal bilaterally. Cardiovascular: Regular rate and rhythm. No rubs or gallops. GI: Soft, nondistended and nontender. Bowel sounds are present. Musculoskeletal: Mild pedal edema. No lower extremity tenderness. Integumentary: No cyanosis. Neurological: The patient is awake and alert. Cranial nerves II-XII are intact. Motor is 5 out of 5 all extremities. Sensation is intact to light touch all extremities. Normal speech. No pronator drift. Psychiatric: Anxious. Medical Decision & Procedures ER Provider Diagnostic Interpretation: X-ray results as stated below per interpretation by me and the radiologist. Radiology results as stated below per my review and the radiologist's interpretation: CHEST 2 VIEWS ROUTINE HISTORY: 62 years-old Male eval for pna acute atypical chest pain and cough. COMPARISON: Chest radiograph 06/30/2017 TECHNIQUE: AP and lateral views of the chest FINDINGS: Cardiomediastinal and hilar silhouettes are within normal limits. There is no pneumothorax, pleural effusion, focal airspace consolidation or overt pulmonary edema. Mild right hemidiaphragmatic elevation. Bones of the chest appear grossly intact. Degenerative changes are seen within the shoulders and spine. IMPRESSION: No acute process. The above report was generated using voice recognition software. It may contain grammatical, syntax or spelling errors. Electronically signed by: Rosas Granado M.D. 07/10/2017 6:27 PM Dictated Date/Time: 07/10/2017 6:26 PM HEAD WITHOUT CONTRAST (CT) CLINICAL HISTORY: 62 years-old Male with eval for bleed. Acute headache. TECHNIQUE: Multiple axial CT images of the head were obtained without contrast. A dose lowering technique was utilized adhering to the principles of ALARA. CT DOSE: 729.78 mGycm COMPARISON: CT head 03/10/2017. FINDINGS: No acute intracranial hemorrhage, midline shift, intracranial mass, hydrocephalus, territorial ischemia or abnormal extra-axial collection. Mild bifrontal atrophy. Ill-defined areas of low-attenuation within the periventricular white matter suggests chronic microvascular ischemic changes, unchanged. Probable remote lacunar infarction of the right lentiform nucleus. The calvarium is intact. The mastoid air cells, and middle ear cavities are clear. Mild mucosal thickening of the ethmoid air cells. Small 4 mm osteoma of the left ethmoid air cells, image 9 series 3. IMPRESSION: No acute intracranial abnormality. The above report was generated using voice recognition software. It may contain grammatical, syntax or spelling errors. Electronically signed by: Rosas Granado M.D. 07/10/2017 6:12 PM Dictated Date/Time: 07/10/2017 6:09 PM Laboratory Results 07/10/17 17:47 Red Blood Count 4.93, Mean Corpuscular Volume 85.6, Mean Corpuscular Hemoglobin 29.2, Mean Corpuscular Hemoglobin Concent 34.1, Mean Platelet Volume 9.3, Neutrophils (%) (Auto) 61.6, Lymphocytes (%) (Auto) 27.6, Monocytes (%) (Auto) 5.7, Eosinophils (%) (Auto) 4.5, Basophils (%) (Auto) 0.3, Neutrophils # (Auto) 4.11, Lymphocytes # (Auto) 1.84, Monocytes # (Auto) 0.38, Eosinophils # (Auto) 0.30, Basophils # (Auto) 0.02 07/10/17 17:47 Test 07/10/17 17:47 07/10/17 17:53 White Blood Count 6.67 K/uL (4.8-10.8) Red Blood Count 4.93 M/uL (4.7-6.1) Hemoglobin 14.4 g/dL (14.0-18.0) Hematocrit 42.2 % (42-52) Mean Corpuscular Volume 85.6 fL (80-100) Mean Corpuscular Hemoglobin 29.2 pg (25-34) Mean Corpuscular Hemoglobin Concent 34.1 g/dl (32-36) Platelet Count 172 K/uL (130-400) Mean Platelet Volume 9.3 fL (7.4-10.4) Neutrophils (%) (Auto) 61.6 % Lymphocytes (%) (Auto) 27.6 % Monocytes (%) (Auto) 5.7 % Eosinophils (%) (Auto) 4.5 % Basophils (%) (Auto) 0.3 % Neutrophils # (Auto) 4.11 K/uL (1.4-6.5) Lymphocytes # (Auto) 1.84 K/uL (1.2-3.4) Monocytes # (Auto) 0.38 K/uL (0.11-0.59) Eosinophils # (Auto) 0.30 K/uL (0-0.5) Basophils # (Auto) 0.02 K/uL (0-0.2) RDW Standard Deviation 41.3 fL (36.4-46.3) RDW Coefficient of Variation 13.2 % (11.5-14.5) Immature Granulocyte % (Auto) 0.3 % Immature Granulocyte # (Auto) 0.02 K/uL (0.00-0.02) Prothrombin Time 11.6 SECONDS (9.0-12.0) Prothromb Time International Ratio 1.1 (0.9-1.1) Activated Partial Thromboplast Time 30.6 SECONDS (21.0-31.0) Partial Thromboplastin Ratio 1.2 Anion Gap 7.0 mmol/L (3-11) Est Creatinine Clear Calc Drug Dose 88.7 ml/min Estimated GFR () 78.9 Estimated GFR (Non- 68.1 BUN/Creatinine Ratio 11.2 (10-20) Calcium Level 8.8 mg/dl (8.5-10.1) Total Bilirubin 0.4 mg/dl (0.2-1) Direct Bilirubin < 0.1 mg/dl (0-0.2) Aspartate Amino Transf (AST/SGOT) 14 U/L (15-37) Alanine Aminotransferase (ALT/SGPT) 29 U/L (12-78) Alkaline Phosphatase 120 U/L (45-117) Total Protein 7.9 gm/dl (6.4-8.2) Albumin 3.6 gm/dl (3.4-5.0) Bedside Troponin I 0.050 ng/ml (0-0.045) Laboratory results as reviewed by me. Medications Administered Medications (Trade) Dose Ordered Sig/Apryl Route Start Time Stop Time Status Last Admin Dose Admin Amlodipine Besylate (Norvasc Tab) 10 mg NOW ONCE PO 07/10/17 17:30 07/10/17 17:31 DC 07/10/17 17:53 10 MG ECG Indication: chest pain Rate (beats per minute): 100 Rhythm: sinus rhythm Findings: 1st degree AV block, Q waves (Inferior) Comparison ECG Date: 30-Jun-2017 Change: no significant change Change: Patient's electrocardiogram per my interpretation. ED Course 1643: The patient was evaluated in room C2B. A complete history and physical exam was performed. 1711: According to the med rec tech, the patient is on verapamil ER 120 mg, Imdur ER 30 mg, and metoprolol. 1721: According to the patient's prescriptions, he is supposed to be on Amlodipine 10 mg daily and Losartan 100 mg. He is supposed to stop his verapamil. 1730: Norvasc Tab 10 mg PO. 1830: I discussed the patient's case with Dr. Cherry, [facility] hospitalist. She will evaluate the patient for further management. 183: I reevaluated the patient. He is stable. I discussed the results with him. He verbalized agreement of the treatment plan. He will be evaluated for further management. 1833: Labetalol HCl 10 mg IV. Medical Decision This is a 62-year-old male who presents with chest pain, elevated blood pressure and headache. Differential diagnosis includes intracranial hemorrhage , migraine headache, anxiety, acute coronary syndrome, pulmonary embolism, medication noncompliance. I did perform a limited focused review of portions of the patient's old chart on the electronic medical record. The patient was here for chest pain and cough 10 days ago. He was diagnosed with URI and found to be hypertensive at that time. His INR was 1. I did evaluate the patient as noted above. IV access was established. The patient was placed on a continuous geospatial program management officer. The patient's blood pressure is elevated. He was given amlodipine 10 mg after I reviewed his prescriptions for his new medications. I did order a CT of the head to rule out intracranial hemorrhage. He is on Coumadin and Lovenox. I did review the images myself as well as the radiology report as described above. There is no evidence of intracranial hemorrhage. I did order and personally review the patient's 12-lead EKG and chest x-ray as described above. I did order and review the patient's blood work as noted in the electronic medical record. He is hyperglycemic. He has an INR 1.1. His troponin is slightly elevated at 0.05. I did discuss the test results with the patient. He remains hypertensive. He was given labetalol 10 mg IV. He insists that he is compliant with his Coumadin. He did take it last night and took his Lovenox this morning which he takes twice a day. I did recommend hospitalization for further care and evaluation. I did discuss the case with the hospitalist and correctional casework specialist. Medication Reconcilliation Current Medication List: was personally reviewed by me Blood Pressure Screening Patient's blood pressure: Elevated blood pressure Blood pressure disposition: Referred to PCP Consults Time Called: 1818 Consulting Physician: Dr. Cherry [facility] hospitalist Returned Call: [phone] I discussed the patient's case with her. She will evaluate the patient for further management. Impression Primary Impression: Poorly-controlled hypertension Additional Impressions: Chronic chest pain Elevated troponin Headache Subtherapeutic international normalized ratio (INR) Anticoagulated Hyperglycemia Scribe Attestation The scribe's documentation has been prepared under my direct and personally reviewed by me in its entirety. I confirm that the note above accurately reflects all work, treatment, procedures, and medical decision making performed by me. Departure Information Dispostion Being Evaluated By Hospitalist Referrals Reza Ocasio Jr,D.O. (PCP) Patient Instructions [facility] Problem Qualifiers Additional Impressions: Headache Headache type: unspecified Headache chronicity pattern: unspecified pattern Intractability: not intractable Qualified Codes: R51 - Headache
[2017-07-10] MEDS ORDERED: OXYCODONE/ACETAMINOPHEN 5-325 TAB PO PRN (19:30)
[2017-07-10] MEDS ORDERED: COLCHICINE 0.6 MG TAB PO PRN (19:30)
[2017-07-10] MEDS ORDERED: POLYETHYLENE (MIRALAX) 17 GM PACK PO PRN (19:30)
[2017-07-10] MEDS ORDERED: HydrALAZINE HCL 20 MG/ML VIAL IV. PRN (19:30)
[2017-07-10] MEDS ORDERED: ZOLPIDEM TARTRATE 10 MG TAB PO PRN (19:30)
[2017-07-10] MEDS ORDERED: ENOXAPARIN 1 MG/KG SQ SCH (19:30)
[2017-07-10] MEDS ORDERED: ACETAMINOPHEN 325 MG TAB PO PRN (19:30)
[2017-07-10] MEDS ORDERED: ASCO500T3 PO (20:00)
[2017-07-10] MEDS ORDERED: LVNIS150 INJ (20:07)
--- NOTE | 2017-07-10 20:08 | History and Physical ---
History & Physical Date & Time of Service: Jul 10, 2017 at 18:49 Chief Complaint: Hypertension, Headache Primary Care Physician: Reza Ocasio Jr,D.O. History of Present Illness Mr. Gonzalez checked his blood pressure this morning and his blood pressure was 292/180. He later developed a headache and checked it again and it had come down a little but his caregiver felt he should come in to the ED. He had an abnormal feeling in his chest but would not describe it as chest pain. He has had this feeling worked up multiple times and has never been shown to be anything. A week ago he saw his pcp who changed his medications however he had not picked up his new medications yet and was still taking his old ones. He is normally short of breath and has been at his baseline. He does have COPD. He wears a cpap at night for sleep apnea. He does not normally wear oxygen. He has had ongoing nausea for the past month and diaphoresis for the past week. He has had a cough for a year which he brings up clear to white sputum. He has felt feverish over the past week. He is diabetic and checks his bsg once daily. He is on disability for chronic lower extremity dvts and pes. His primary care provider has him on both enoxaprin and warfarin because he is trying to get him to walk ROS Constitutional: no chills, aches, Respiratory: no sob,cough, sputum, or wheezing Cardiac: see HPI GI: no abdominal pain, nausea, vomiting, diarrhea or constipation : no dysuria or hesitancy Extremities: no joint pain or weakness Skin: no rash All other systems reviewed and negative Past Medical/Surgical History Medical Problems: (1) Diabetes mellitus Status: Chronic (2) Gastroesophageal reflux disease Status: Chronic (3) Gout Status: Chronic (4) Parkinson's disease Status: Chronic (5) Pulmonary embolism Status: Resolved Family History Cancer Diabetes mellitus FH: heart disease Hypertension Social History Smoking Status: Never Smoker Smokeless Tobacco Use: No Alcohol Use: none Drug Use: none Marital Status: Housing status: lives alone Occupational Status: disabled Immunizations History of Influenza Vaccine: Unknown History of Tetanus Vaccine?: probably over 10 yrs ago History of Pneumococcal: apr 2004 History of Hepatitis B Vaccine: 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 Multi-Drug Resistant Organisms History of MDRO: No Allergies Coded Allergies: Penicillins (Verified Allergy, Severe, 06/30/17) SEVERE RXN PER PT Cephalosporins (Verified Allergy, Unknown, 06/30/17) Sulfamethoxazole w/Trimethoprim (Verified Allergy, Unknown, ., 06/30/17) TAKES LASIX AT HOME Lisinopril (Verified Adverse Reaction, Intermediate, Cough, 06/30/17) Home Medications Scheduled Allopurinol (Allopurinol), 100 MG PO DAILY Amantadine HCl (Amantadine HCl), 100 MG PO BID Amlodipine (Norvasc), 10 MG PO DAILY Ascorbic Acid (Vitamin C), 500 MG PO QAM Azithromycin (Zithromax), 250 MG PO UD Carbidopa/Levodopa (Sinemet Cr 50MG/200MG), 1 TAB PO BID Dutasteride (Avodart), 0.5 MG PO DAILY Enoxaparin (Lovenox), 150 MG INJ BID Ferrous Sulfate (Iron), 325 MG PO DAILY Fluoxetine (Prozac), 40 MG PO DAILY Insulin Aspart (Novolog Flexpen), 1 DOSE SC UD Insulin Glargine (Lantus), 40 UNITS SC AMPM Isosorbide Mononitrate (Isosorbide Mononitrate ER), 30 MG PO QAM Losartan Potassium (Cozaar), 100 MG PO DAILY Mirabegron (Myrbetriq Er), 50 MG PO DAILY Pantoprazole (Pantoprazole Sodium), 40 MG PO QAM Pregabalin (Lyrica), 300 MG PO BID Ranitidine HCl (Ranitidine HCl), 150 MG PO HS Simvastatin (Zocor), 20 MG PO QPM Spironolactone (Aldactone), 25 MG PO BID Tamsulosin Hcl (Flomax), 0.4 MG PO DAILY Warfarin Sodium (Coumadin), 10 MG PO DAILY Scheduled PRN Colchicine (Colchicine), 0.6 MG PO DAILY PRN for GOUT Oxycodone/Acetaminophen 5MG/325MG (Percocet 5MG/325MG), 1-2 TABLETS PO Q4H PRN for Pain Zolpidem Tartrate (Ambien), 10 MG PO HS PRN for Sleep Physical Exam Vital Signs Date Time Temp Pulse Resp B/P (MAP) Pulse Ox O2 Delivery O2 Flow Rate FiO2 07/10/17 17:54 116/119 07/10/17 16:38 97 Room Air 07/10/17 16:38 36.9 11 20 173/109 97 Room Air General: no distress Eyes: normal inspection, PERLL Respiratory: chest non tender, clear to auscultation, normal breath sounds, no respiratory distress, no accessory muscle use Cardiac: regular rate and rhythm, no rub or gallop, no murmur, no edema, no jvd GI/: active bowel sounds, no abd pain or tenderness, soft, non distended Extremities: normal range of motion, normal strength, non tender Neuro/Psych: alert and oriented x 3, normal mood and affect Skin: normal color, dry Diagnostics Laboratory Results Results Past 24 Hours Test 07/10/17 17:47 07/10/17 17:53 Range/Units White Blood Count 6.67 4.8-10.8 K/uL Red Blood Count 4.93 4.7-6.1 M/uL Hemoglobin 14.4 14.0-18.0 g/dL Hematocrit 42.2 42-52 % Mean Corpuscular Volume 85.6 80-100 fL Mean Corpuscular Hemoglobin 29.2 25-34 pg Mean Corpuscular Hemoglobin Concent 34.1 32-36 g/dl Platelet Count 172 130-400 K/uL Mean Platelet Volume 9.3 7.4-10.4 fL Neutrophils (%) (Auto) 61.6 % Lymphocytes (%) (Auto) 27.6 % Monocytes (%) (Auto) 5.7 % Eosinophils (%) (Auto) 4.5 % Basophils (%) (Auto) 0.3 % Neutrophils # (Auto) 4.11 1.4-6.5 K/uL Lymphocytes # (Auto) 1.84 1.2-3.4 K/uL Monocytes # (Auto) 0.38 0.11-0.59 K/uL Eosinophils # (Auto) 0.30 0-0.5 K/uL Basophils # (Auto) 0.02 0-0.2 K/uL RDW Standard Deviation 41.3 36.4-46.3 fL RDW Coefficient of Variation 13.2 11.5-14.5 % Immature Granulocyte % (Auto) 0.3 % Immature Granulocyte # (Auto) 0.02 0.00-0.02 K/uL Prothrombin Time 11.6 9.0-12.0 SECONDS Prothromb Time International Ratio 1.1 0.9-1.1 Activated Partial Thromboplast Time 30.6 21.0-31.0 SECONDS Partial Thromboplastin Ratio 1.2 Sodium Level 133 136-145 mmol/L Potassium Level 3.7 3.5-5.1 mmol/L Chloride Level 102 98-107 mmol/L Carbon Dioxide Level 24 21-32 mmol/L Anion Gap 7.0 3-11 mmol/L Blood Urea Nitrogen 13 7-18 mg/dl Creatinine 1.14 0.60-1.40 mg/dl Est Creatinine Clear Calc Drug Dose 88.7 ml/min Estimated GFR () 78.9 Estimated GFR (Non- 68.1 BUN/Creatinine Ratio 11.2 10-20 Random Glucose 254 70-99 mg/dl Calcium Level 8.8 8.5-10.1 mg/dl Total Bilirubin 0.4 0.2-1 mg/dl Direct Bilirubin < 0.1 0-0.2 mg/dl Aspartate Amino Transf (AST/SGOT) 14 15-37 U/L Alanine Aminotransferase (ALT/SGPT) 29 12-78 U/L Alkaline Phosphatase 120 45-117 U/L Total Protein 7.9 6.4-8.2 gm/dl Albumin 3.6 3.4-5.0 gm/dl Bedside Troponin I 0.050 0-0.045 ng/ml Diagnostic Radiology CHEST 2 VIEWS ROUTINE HISTORY: 62 years-old Male eval for pna acute atypical chest pain and cough. COMPARISON: Chest radiograph 06/30/2017 TECHNIQUE: AP and lateral views of the chest FINDINGS: Cardiomediastinal and hilar silhouettes are within normal limits. There is no pneumothorax, pleural effusion, focal airspace consolidation or overt pulmonary edema. Mild right hemidiaphragmatic elevation. Bones of the chest appear grossly intact. Degenerative changes are seen within the shoulders and spine. IMPRESSION: No acute process. HEAD WITHOUT CONTRAST (CT) CLINICAL HISTORY: 62 years-old Male with eval for bleed. Acute headache. TECHNIQUE: Multiple axial CT images of the head were obtained without contrast. A dose lowering technique was utilized adhering to the principles of ALARA. CT DOSE: 729.78 mGycm COMPARISON: CT head 03/10/2017. FINDINGS: No acute intracranial hemorrhage, midline shift, intracranial mass, hydrocephalus, territorial ischemia or abnormal extra-axial collection. Mild bifrontal atrophy. Ill-defined areas of low-attenuation within the periventricular white matter suggests chronic microvascular ischemic changes, unchanged. Probable remote lacunar infarction of the right lentiform nucleus. The calvarium is intact. The mastoid air cells, and middle ear cavities are clear. Mild mucosal thickening of the ethmoid air cells. Small 4 mm osteoma of the left ethmoid air cells, image 9 series 3. IMPRESSION: No acute intracranial abnormality. EKG Sinus rhythm with 1st degree A-V block Otherwise normal ECG When compared with ECG of 30-JUN-2017 19:12, No significant change was found Impression Assessment and Plan Mr. Gonzalez is a 62 year old man here for uncontrolled hypertension. Uncontrolled Hypertension - admit tele obs - prn hydralazine, iv metoprolol - trend troponins - home amlodipine, spironolactone, isosorbide - losartan had been increased by pcp but not started yet - will start the increased dose at 100 mg daily - Echo 03/01 showed grade I diastolic dysfunction Hx of DVT/PE - INR 1.1 - repeat am - continue Warfarin 10 mg - enoxaprin 1 mg/kg bid DM II with neuropathy and hyperglycemia - home lantus - ss, bsg ac and hs - continue home Lyrica GERD - continue home protonix and ranitidine Parkinsons disease - continue Sinemet, amantadine BPH/overactive bladder - continue finasteride and tamsulosin, Myrbetriq Gout - continue allopurinol Advanced Directives Existing Advance Directive: Yes Existing Living Will: Yes Existing Power of Level Vial Inspector And Tester: Yes (son Binu) Resuscitation Status FULL RESUSCITATION Reviewed: Pt Seen/Exam by Me History Pt states increased BP at home with digital cuff, as high as the 290s systolic. He has been having headaches with sun and bright light recently. No chest pain, but a chest heaviness. No SOB. Pt states he snores. He is , but states he ex- used to complain about this regularly. He had a sleep study over a year ago and was dx with YANN. He does not wear his CPAP though due to it causing frequent waking. He states he had a CPAP while admitted here at some point and he did well with that one. He states he would wear a CPAP if he found one that worked for him. Agree with HPI/ROS as noted by TIE SAWYER General Appearance: no apparent distress, obese Eye Exam: bilateral eye normal inspection, bilateral eye other (sclera normal) Respiratory: normal breath sounds, no respiratory distress Cardiovascular: normal peripheral pulses, regular rate, rhythm Gastrointestinal: non tender, soft Extremities: non-tender, no pedal edema Neurologic/Psychiatric: alert, normal mood/affect, oriented x 3 Skin Characteristics: normal color, warm/dry Assessment/Plan Agree with plan as outlined above Persistent HTN that has been unable to be controlled for years Likely related to untx YANN Respiratory therapy to set up for overnight and pt to discuss options for different machines with them May need to have f/u with sleep medicine to discuss options as well Pt has been on lovenox for some time for PE/DVT. Coumadin was recently added to the lovenox with the intention of dual therapy. Pt has had difficulty with INR management and plans were to d/c coumadin most likely. He is interested in hearing about eliquis or xarelto options although he feels he will still need to be on lovenox. I did discuss that either of those medications may be appropriate without lovenox use, but pt is hesitant as he feels the lovenox is "keeping me alive". He is concerned about the bleeding risks with xarelto and eliquis vs lovenox. This will need discussed further with pt and PCP.
[2017-07-10] MEDS ORDERED: GLUCOSE 40% GEL 15 GM TUBE PO PRN (21:00)
[2017-07-10] MEDS ORDERED: GLUCAGON FOR INJ 1 MG VIAL SQ PRN (21:00)
[2017-07-10] MEDS ORDERED: RANITIDINE HCL 150 MG TAB PO SCH (21:00)
[2017-07-10] MEDS ORDERED: SIMVASTATIN 20 MG TAB PO SCH (21:00)
[2017-07-10] MEDS ORDERED: GLUCOSE 10 TABS/TUBE PO PRN (21:00)
[2017-07-10] MEDS ORDERED: DEXTROSE 50% 50 ML SYR IV PRN (21:00)
[2017-07-10 21:19] VITALS: BP_SYST 187; BP_SYST 189; BP_DIAS 105; BP_DIAS 106; PULSE 82; TEMP 36.8; O2SAT 95; Ht 177.8 cm; Wt 126.9 kg
[2017-07-10] MEDS ORDERED: LOSARTAN POTASSIUM 50 MG TAB PO ONE (21:30)
[2017-07-10] MEDS ORDERED: ISOS-11 PO (21:36)
[2017-07-10] MEDS: AMANTADINE HCL 100 MG CAP PO SCH (21:42)
[2017-07-10] MEDS: CARBIDOPA/LEVODOPA 50/200MG EXT REL TAB PO SCH (21:43)
[2017-07-10] MEDS: PREGABALIN 150 MG CAP PO SCH (21:47)
[2017-07-10] MEDS ORDERED: MIRA1TAB3 PO (22:48)
[2017-07-10] MEDS ORDERED: OXYC-57 PO (22:48)
[2017-07-10] MEDS ORDERED: DUTA0.5C PO (22:52)
[2017-07-10] MEDS ORDERED: COLC0.6T54 PO (22:52)
[2017-07-10] MEDS ORDERED: ZOLP10TA PO (22:52)
[2017-07-10] MEDS ORDERED: TAMS0.4C38 PO (22:52)
[2017-07-10] MEDS ORDERED: FLUO40CA8 PO (22:52)
[2017-07-10] MEDS ORDERED: FERR1TAB23 PO (22:52)
[2017-07-10] MEDS: ENOXAPARIN 150 MG/1ML SYR SQ SCH (23:04)
[2017-07-10] MEDS: WARFARIN SOD 10 MG TAB PO SCH (23:05)
[2017-07-10] MEDS: INSULIN ASPART 100 UNITS/ML 3 ML PEN SC SCH (23:08)
[2017-07-10] MEDS: INSULIN GLARGINE SC SCH (23:09)
[2017-07-10] MEDS: METOPROLOL TARTRATE 1 MG/ML VIAL IV. SCH (23:22)
[2017-07-10] MEDS ORDERED: INSDGI SC (23:32)
[2017-07-10] MEDS ORDERED: SPIR25TA PO (23:35)
[2017-07-11 00:01] VITALS: BP_SYST 172; BP_SYST 183; BP_DIAS 96; BP_DIAS 99; PULSE 84; TEMP 36.5; O2SAT 97
[2017-07-11] MEDS ORDERED: IV FLUIDS COMPLETED PRN (00:45)
[2017-07-11 03:56] VITALS: BP 134/68; PULSE 69; TEMP 36.5; O2SAT 95
[2017-07-11] MEDS: METOPROLOL TARTRATE 1 MG/ML VIAL IV. SCH ×2 (06:00→12:00)
[2017-07-11 06:20] LABS: HEMATOCRIT 39.4 % (42-52); MEAN CELL VOLUME 87.4 fL (80-100); MEAN CORPUSCULAR HEMOGLOBIN 28.8 pg (25-34); MEAN PLATELET VOLUME 9.2 fL (7.4-10.4); PLATELET COUNT 162 K/uL (130-400); RED CELL DISTRIBUTION WIDTH CV 13.3 % (11.5-14.5); RED CELL DISTRIBUTION WIDTH SD 42.6 fL (36.4-46.3); WHITE BLOOD COUNT 5.95 K/uL (4.8-10.8)
[2017-07-11 06:28] LABS: INR 1.1 (0.9-1.1)
[2017-07-11 06:52] LABS: BLOOD UREA NITROGEN 11 mg/dl (7-18); CALCIUM 8.4 mg/dl (8.5-10.1); CARBON DIOXIDE 29 mmol/L (21-32); CREATININE 1.16 mg/dl (0.60-1.40); GLUCOSE 236 mg/dl (70-99); POTASSIUM 3.6 mmol/L (3.5-5.1); SODIUM 134 mmol/L (136-145)
[2017-07-11 07:19] VITALS: BP 148/72; PULSE 67; TEMP 36.4; O2SAT 97
[2017-07-11] MEDS: CARBIDOPA/LEVODOPA 50/200MG EXT REL TAB PO SCH (08:20)
[2017-07-11] MEDS: AMANTADINE HCL 100 MG CAP PO SCH (08:23)
[2017-07-11] MEDS: ENOXAPARIN 150 MG/1ML SYR SQ SCH (08:25)
[2017-07-11] MEDS: INSULIN ASPART 100 UNITS/ML 3 ML PEN SC SCH ×2 (08:28→12:26)
[2017-07-11] MEDS: INSULIN GLARGINE SC SCH (08:29)
[2017-07-11] MEDS: PREGABALIN 150 MG CAP PO SCH (08:32)
[2017-07-11] MEDS ORDERED: INSULIN GLARGINE SOLOSTAR 100 UNITS/ML 3 ML PEN SC SCH (09:00)
[2017-07-11] MEDS ORDERED: LOSARTAN POTASSIUM 50 MG TAB PO SCH (09:00)
[2017-07-11] MEDS ORDERED: ASCORBIC ACID 500 MG TAB PO SCH (09:00)
[2017-07-11] MEDS ORDERED: MIRABEGRON ER 25 MG TAB PO SCH (09:00)
[2017-07-11] MEDS ORDERED: ISOSORBIDE MONONITRATE 30 MG TABCR PO SCH (09:00)
[2017-07-11] MEDS ORDERED: TAMSULOSIN HCL 0.4 MG CAP PO SCH (09:00)
[2017-07-11] MEDS ORDERED: PANTOprazole SOD 40 MG TAB PO SCH (09:00)
[2017-07-11] MEDS ORDERED: ALLOPURINOL 100 MG TAB PO SCH (09:00)
[2017-07-11] MEDS ORDERED: AMLODIPINE BESYLATE 5 MG TAB PO SCH (09:00)
[2017-07-11] MEDS ORDERED: SPIRONOLACTONE 25 MG TAB PO SCH (09:00)
[2017-07-11] MEDS ORDERED: FLUOXETINE HCL 20 MG CAP PO SCH (09:00)
--- NOTE | 2017-07-11 10:56 | Discharge Instructions ---
Discharge Instructions Date of Service Jul 11, 2017. Admission Reason for Admission: Uncontrolled Hypertension Discharge Discharge Diagnosis / Problem: Uncontrolled hypertension, chest pain Discharge Goals Goal(s): Improve function, Improve disease control Activity Recommendations Activity Limitations: resume your previous activity . Instructions / Follow-Up Instructions / Follow-Up Medications: no changes made - LOSARTAN: please to directly to the pharmacy to pear picker script for your dose of 100mg daily, next dose is due tomorrow - COUMADIN: please resume, follow up with Dr. Ocasio for INR draws Uncontrolled Hypertension: likely because you had not increased your dose of Losartan blood pressure adequately controlled here in the hospital on your home regimen of medications please continue these follow low salt diet because eating lots of salt can limit the effect of your medications Chronic DVT/PE: continue Lovenox and Coumadin, follow up closely with Dr. Ocasio FOLLOW UP - call for appointment with Dr. Ocasio for next week Current Hospital Diet Patient's current hospital diet: AHA Diet (Heart Healthy), Diabetes Type 2 Diet Discharge Diet Recommended Diet: AHA Diet (Heart Healthy), Diabetes Type 2 Diet Pending Studies Studies pending at discharge: no Medical Emergencies . Who to Call and When: Medical Emergencies: If at any time you feel your situation is an emergency, please call 911 immediately. . Non-Emergent Contact Non-Emergency issues call your: Primary Care Provider Call Non-Emergent contact if: you have any medication questions . . "Provider Documentation" section prepared by Ash Hodges. . VTE Core Measure Inpt VTE Proph given/why not?: Enoxaparin (Lovenox) [place] Drug Monitoring Program Search Results: no issues identified
[2017-07-11 10:58] VITALS: TEMP 36.4; O2SAT 97
[2017-07-11] MEDS: WARFARIN SOD 10 MG TAB PO SCH (12:22)
[2017-07-11 12:29] VITALS: BP 118/60; PULSE 0
--- NOTE | 2017-07-12 08:26 | Discharge Summary ---
Discharge Summary Date of Service Jul 11, 2017. 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 Procedures: none Consultations: none Medication Reconciliation Continued Medications: Allopurinol (Allopurinol) 100 Mg Tab 100 MG PO DAILY Amantadine HCl (Amantadine HCl) 100 Mg Cap 100 MG PO BID Amlodipine (Norvasc) 10 Mg Tab 10 MG PO DAILY, TAB Ascorbic Acid (Vitamin C) 500 Mg Tab 500 MG PO QAM Carbidopa/Levodopa (Sinemet Cr 50MG/200MG) Tabcr 1 TAB PO BID Colchicine (Colchicine) 0.6 Mg Tab 0.6 MG PO DAILY PRN for GOUT, TAB Dutasteride (Avodart) 0.5 Mg Cap 0.5 MG PO DAILY, CAP Enoxaparin (Lovenox) 150 Mg/1 Ml Inj 150 MG INJ BID Ferrous Sulfate (Iron) 325 Mg Tab 325 MG PO DAILY Fluoxetine (Prozac) 40 Mg Cap 40 MG PO DAILY, CAP Insulin Aspart (Novolog Flexpen) 100 Units/Ml Inj 1 DOSE SC UD SLIDING SCALE Insulin Glargine (Lantus) 100 Unit/Ml Inj 40 UNITS SC AMPM Isosorbide Mononitrate (Isosorbide Mononitrate ER) 30 Mg Tabcr 30 MG PO QAM, #30 Losartan Potassium (Cozaar) 50 Mg Tab 100 MG PO DAILY, TAB TAKE 2, 50 MG TABS UNTIL CURRENT SUPPLY RUNS OUT. Mirabegron (Myrbetriq Er) 50 Mg Tab 50 MG PO DAILY, TAB Oxycodone/Acetaminophen 5MG/325MG (Percocet 5MG/325MG) Tab 1-2 TABLETS PO Q4H PRN for Pain, TAB Pantoprazole (Pantoprazole Sodium) 40 Mg Tab 40 MG PO QAM for 30 Days, #30 TAB Pregabalin (Lyrica) 300 Mg Cap 300 MG PO BID Ranitidine HCl (Ranitidine HCl) 150 Mg Tab 150 MG PO HS for 30 Days, #30 TAB Simvastatin (Zocor) 20 Mg Tab 20 MG PO QPM, TAB Spironolactone (Aldactone) 25 Mg Tab 25 MG PO BID, TAB Tamsulosin Hcl (Flomax) 0.4 Mg Cap 0.4 MG PO DAILY, CAP Warfarin Sodium (Coumadin) 5 Mg Tab 10 MG PO DAILY, TAB TAKE THROUGH NEXT THURSDAY, CALL THURSDAY FOR LAB RESULTS. Zolpidem Tartrate (Ambien) 10 Mg Tab 10 MG PO HS PRN for Sleep, TAB Discontinued Medications: Azithromycin (Zithromax) 250 Mg Tab 250 MG PO UD, #13 TAB TAKE 2 A DAY FOR 3 DAYS, THEN 1 A DAY UNTIL FINISHED. Discharge Exam Patient feeling well in the morning. No further chest pain. Eating well. Urinating, moving bowels. BP much better controlled after starting Losartan 100mg, patient admits he was not taking this at home. Reviewed labs, Cr stable , troponin negative, CBC normal. Asked patient if he was feeling well enough to go home and he said yes, wanted to go home and follow up with Dr. Ocasio. Review of Systems: Constitutional: + weakness (chronic), No fever, No chills, No sweats, No weight loss, No fatigue, No problem reported Eyes: No worsening of vision, No eye pain, No redness, No discharge, No diplopia, No problem reported ENT: No hearing loss, No unusual epistaxis, No nasal symptoms, No sore throat, No tinnitus, No dental problems, No trouble swallowing, No problem reported Respiratory: + dyspnea on exertion, No cough, No sputum, No wheezing, No shortness of breath, No dyspnea at rest, No hemoptysis, No problem reported Cardiovascular: No chest pain, No orthopnea, No PND, No edema, No claudication, No palpitations, No problem reported Abdomen: No pain, No nausea, No vomiting, No diarrhea, No constipation, No GI bleeding, No problem reported Musculoskeletal: + joint pain (back pain), No muscle pain, No swelling, No calf pain, No problem reported Genitourinary - Male: No hematuria, No dysuria, No urinary frequency, No urinary urgency Neurologic: + weakness, No memory loss, No paralysis, No numbness/tingling, No vertigo, No balance problems, No problem reported Psychiatric: + depression symptoms, No anhedonism, No anxiety, No insomnia, No substance abuse, No problem reported Endocrine: No fatigue, No excessive thirst, No excessive urination, No problem reported Hematologic / Lymphatic: No abnormal bleeding/bruising, No clotting problems , No swollen lymph nodes, No night sweats, No problem reported Integumentary: No rash, No itch, No new/changing skin lesions, No color change, No bleeding, No problem reported Physical Exam: General Appearance: no apparent distress, + obese Eyes: normal inspection, EOMI, sclerae normal ENT: normal ENT inspection, hearing grossly normal, pharynx normal Neck: supple, no adenopathy, no JVD, trachea midline Respiratory/Chest: chest non-tender, lungs clear, normal breath sounds, no respiratory distress, no accessory muscle use Cardiovascular: regular rate, rhythm, no edema, no gallop, no JVD, no murmur , normal peripheral pulses Abdomen / GI: normal bowel sounds, non tender, soft, no organomegaly Extremities: normal inspection, no calf tenderness, normal capillary refill , no pedal edema, normal range of motion 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 Gonzalez is a 62 year old man here for uncontrolled hypertension. Uncontrolled Hypertension, no signs of organ damage BP better controlled after resuming his Losartan 100mg that he was not taking at home continue Norvasc 10mg, Spironolactone 25mg BID, Imdur 30mg daily troponin negative Hx of DVT/PE - INR 1.1 - continue Warfarin 10 mg - enoxaprin 1 mg/kg bid - follow up INR with Dr. Ocasio DM II with neuropathy and hyperglycemia - home lantus - ss, bsg ac and hs - continue home Lyrica GERD - continue home protonix and ranitidine Parkinsons disease - continue Sinemet, amantadine BPH/overactive bladder - continue finasteride and tamsulosin, Myrbetriq Gout - continue allopurinol Total Time Spent: Greater than 30 minutes This includes examination of the patient, discharge planning, medication reconciliation, and communication with other providers. Discharge Instructions Please refer to the electronic Patient Visit Report (Discharge Instructions) for additional information. Follow-Up Dr. Ocasio this week Additional Copies To Reza Ocasio Jr, D.O.
== END 2017-07-11 12:42 | disposition home or self-care (01) ==
LOC: EDBD 16:27 → C.EDC 16:28 → C.2T 19:44 → ENRESERV 19:59
PROVIDERS: ADMIT Family Medicine; ATTEND Internal Medicine
DX: I10 Essential (primary) hypertension (principal); R07.9 Chest pain, unspecified; Z86.718 Personal history of other venous thrombosis and embolism; E66.9 Obesity, unspecified; G89.29 Other chronic pain; E11.21 Type 2 diabetes mellitus with diabetic nephropathy; G20 Parkinson's disease; K21.9 Gastro-esophageal reflux disease without esophagitis; Z79.4 Long term (current) use of insulin; Z79.01 Long term (current) use of anticoagulants; Z88.2 Allergy status to sulfonamides; Z88.0 Allergy status to penicillin; Z82.49 Family history of ischemic heart disease and other diseases of the circulatory system; Z80.9 Family history of malignant neoplasm, unspecified; Z83.3 Family history of diabetes mellitus

== ENCOUNTER → 2017-07-15 | Outpatient (CLI) | payer OTHER ==
[~2017-07-15] MED LIST changes: +AMLO-114 PO; +ASCO500T3 PO; +COLC0.6T54 PO; +DUTA0.5C PO; +FERR1TAB23 PO; +FLUO40CA8 PO; +INSDGI SC; +ISOS-11 PO; +LVNIS150 INJ; +MIRA1TAB3 PO; +NVLGIPEN SC; +OXYC-57 PO; +SIMV20TA2 PO; +SPIR25TA PO; +TAMS0.4C38 PO; -VERA1TAB52 PO; +ZOLP10TA PO
--- NOTE | 2017-07-15 13:37 | DIAGNOSTIC IMAGING REPORT ---
NUCLEAR GASTRIC EMPTYING STUDY CLINICAL HISTORY: Generalized abdominal pain. COMPARISON STUDY: Abdominal CT dated 10/21/2016. TECHNIQUE: Following the oral administration of 1.083 mCi of technetium 99m sulfur colloid in egg sandwich and 8 ounces of water, static abdominal images are obtained anteriorly and posteriorly at 0 minutes, 1 hour, 2 hour, and 4 hour time intervals. Gastric emptying was calculated utilizing the geometric mean method. FINDINGS: There is approximately 75% activity remaining at the 1 hour time interval, 63% remaining at the 2 hour time interval (normal is less than 60%), and 22% activity remaining at the 4 hour time interval (normal is less than 10%). IMPRESSION: Findings are consistent with mildly delayed gastric imaging for solids. Electronically signed by: Rodrigo Ni M.D. 07/15/2017 1:35 PM Dictated Date/Time: 07/15/2017 1:35 PM
== END | disposition home or self-care (01) ==
LOC: C.NUCL 08:42
DX: R10.9 Unspecified abdominal pain (principal)

== ENCOUNTER → 2017-09-01 | Outpatient (CLI) | payer OTHER ==
[~2017-09-01] MED LIST changes: +SINCALIDE INJ 2.5 MCG in SODIUM CHLORIDE 0.9% 100ML 100 ML IV ONE
--- NOTE | 2017-09-01 15:50 | DIAGNOSTIC IMAGING REPORT ---
HEPATOBILIARY EF IMAGING CLINICAL HISTORY: 62 years-old Male with ABDOMINAL PAIN. Acute generalized abdominal pain. TECHNIQUE: Following the intravenous administration of 5.1 mCi of technetium-99m Choletec, sequential abdominal images were obtained. In order to evaluate the contractile response of the gallbladder, Kinevac was administered by slow intravenous infusion over 30 min starting approximately 60 min after the administration of the radiopharmaceutical. Sequential imaging was continued for 45 min after the start of the Kinevac infusion. COMPARISON: Gastric emptying study 07/15/2017, right upper quadrant ultrasound 03/09/2017 FINDINGS: There is prompt, uniform accumulation of the tracer by the liver. There is normal filling of the intrahepatic ducts, common bile duct and gallbladder and normal excretion of the tracer into the duodenum. There is adequate contraction of the gallbladder. The calculated gallbladder ejection fraction is 88% (normal >40%). There is mild enterogastric reflux. IMPRESSION: 1. Normal contractile response of the gallbladder to Kinevac infusion. 2. Mild enterogastric reflux. The above report was generated using voice recognition software. It may contain grammatical, syntax or spelling errors. Electronically signed by: Rosas Granado M.D. 09/01/2017 3:48 PM Dictated Date/Time: 09/01/2017 3:45 PM
== END | disposition home or self-care (01) ==
LOC: C.NUCL 12:15
DX: R10.9 Unspecified abdominal pain (principal); K21.9 Gastro-esophageal reflux disease without esophagitis

== ENCOUNTER 2017-10-01 20:39 | Emergency (ER) | payer OTHER ==
[~2017-10-01] VITALS: Ht 175.3 cm; Wt 125.6 kg
[~2017-10-01 20:39] MED LIST changes: -SINCALIDE INJ 2.5 MCG in SODIUM CHLORIDE 0.9% 100ML 100 ML IV ONE
[2017-10-01 20:42] VITALS: TEMP 36.4; Ht 175.3 cm; Wt 125.6 kg
[2017-10-01] MEDS ORDERED: HYDROmorphone INJ 1 MG/ML SYR IV STA (21:15)
[2017-10-01] MEDS ORDERED: SODIUM CHLORIDE 0.9% 1000ML 1,000 ML IV STA (21:15)
[2017-10-01] MEDS ORDERED: OPTIRAY 320 IV PRN (21:30)
[2017-10-01 22:12] LABS: BASO % 0.5 %; BASO ABS # 0.03 K/uL (0-0.2); EOS % 3.9 %; EOS ABS # 0.25 K/uL (0-0.5); HEMATOCRIT 44.3 % (42-52); HEMOGLOBIN 14.8 g/dL (14.0-18.0); IG# 0.02 K/uL (0.00-0.02); LYMPH % 24.7 %; LYMPH ABS # 1.59 K/uL (1.2-3.4); MEAN CELL VOLUME 87.5 fL (80-100); MEAN CORPUSCULAR HEMOGLOBIN 29.2 pg (25-34); MEAN CORPUSCULAR HGB CONC 33.4 g/dl (32-36); MEAN PLATELET VOLUME 9.8 fL (7.4-10.4); MONO % 6.5 %; MONO ABS # 0.42 K/uL (0.11-0.59); NEUT % 64.1 %; NEUT ABS # 4.13 K/uL (1.4-6.5); PLATELET COUNT 176 K/uL (130-400); RED CELL DISTRIBUTION WIDTH CV 13.5 % (11.5-14.5); RED CELL DISTRIBUTION WIDTH SD 42.5 fL (36.4-46.3); WHITE BLOOD COUNT 6.44 K/uL (4.8-10.8)
[2017-10-01 22:14] LABS: ALBUMIN 3.6 gm/dl (3.4-5.0); CALCIUM 9.1 mg/dl (8.5-10.1); CREATININE 1.21 mg/dl (0.60-1.40); POTASSIUM 4.1 mmol/L (3.5-5.1)
[2017-10-01 22:16] LABS: TOTAL PROTEIN 7.7 gm/dl (6.4-8.2)
[2017-10-01 22:21] LABS: PTT PATIENT 29.4 SECONDS (21.0-31.0)
[2017-10-01] MEDS ORDERED: NovoLIN-R INSULIN PER UNIT CHARGE IV STA ×2 (22:38→22:54)
--- NOTE | 2017-10-01 22:42 | DIAGNOSTIC IMAGING REPORT ---
ABDOMEN AND PELVIS CT WITH IV CONTRAST CT DOSE: 1833.55 mGy.cm HISTORY: Acute left lower quadrant abdominal pain abd pain LLq TECHNIQUE: Multiaxial CT images of the abdomen and pelvis were performed following the use of intravenous contrast. A dose lowering technique was utilized adhering to the principles of ALARA. COMPARISON STUDY: CT abdomen and pelvis 10/21/2016. FINDINGS: Mild bilateral bronchial wall thickening of the lung bases. No pneumatosis or pneumoperitoneum. Imaged inferior cardiac chambers are mildly enlarged. Liver, gallbladder, spleen, pancreas and adrenal glands are within normal limits. Mild nonspecific bilateral perinephric stranding. Bilateral renal cysts are noted measuring up to 1.6 cm on the left. Multifocal cortical scarring with parenchymal thinning involves interpolar left kidney. Nonobstructing calculi of the inferior pole left kidney measure up to 6 mm. No ureteral calculi or obstructive uropathy. Bladder is partially decompressed. Mild prostamegaly. Small fat filled left inguinal hernia. Aorta is normal in course and caliber without aneurysm. 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 Multiple venous collateral vessels are again seen along the anterior abdominal wall. There is no bowel obstruction or focal bowel wall thickening. Mild colonic diverticulosis without CT evidence of acute diverticulitis. The appendix is not seen, likely surgically absent. Degenerative changes of the hips, pelvis and spine. Bones appear intact. IMPRESSION: 1. No acute intra-abdominal or intrapelvic abnormality identified. 2. Mild colonic diverticulosis without CT evidence of acute diverticulitis. 3. Left-sided nephrolithiasis with cortical scarring and parenchymal thinning of the inferior pole left kidney. No ureteral calculi or obstructive uropathy. 4. 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 Electronically signed by: Rosas Granado M.D. 10/01/2017 10:41 PM Dictated Date/Time: 10/01/2017 10:31 PM
[2017-10-01 23:21] VITALS: BP 180/100; PULSE 108; O2SAT 97
--- NOTE | 2017-10-01 23:23 | EMERGENCY ROOM VISIT NOTE ---
History Report prepared by Tyra: Benjamin Mireles Under the Supervision of: Dr. Aramis Hauser D.O. First contact with patient: 21:00 Chief Complaint: ABDOMINAL PAIN Stated Complaint: ABDOMINAL PAIN/HEMATURIA History of Present Illness The patient is a 62 year old male who presents to the Emergency Room with complaints of intermittent abdominal pain that he has been experiencing for the past month. Pain is sharp stabbing in nature. The patient states that his pain is localized to his left lower quadrant and is worsened with movement. He also notes that he has been noticing blood in his urine intermittently for the past two weeks. The patient has been following with his PCP for this abdominal pain, but has not had any imaging performed. He has a history of hypertension and blood clots, and is on Eliquis and Lisinopril daily. He denies any other headache, change in vision, fevers, chest pain, shortness of breath, nausea, vomiting, diarrhea, and melena. Source of History: patient Onset: 1 month Position: abdomen (LLQ) Timing: intermittent Modifying Factors (Worsening): movement Associated Symptoms: + urinary symptoms (hematuria), No chest pain, No SOB, No nausea Review of Systems See HPI for pertinent positives & negatives. A total of 10 systems reviewed and were otherwise negative. Past Medical & Surgical Medical Problems: (1) Catheter-associated urinary tract infection (2) Diabetes mellitus (3) Dyspnea (4) Gastroesophageal reflux disease (5) Gout (6) Parkinson's disease (7) Pulmonary embolism (8) Right upper extremity numbness (9) Syncope (10) Uncontrolled hypertension (11) Weakness Family History Cancer Diabetes mellitus FH: heart disease Hypertension Social History Smoking Status: Never Smoker Alcohol Use: none Drug Use: none Marital Status: Housing Status: lives alone Occupation Status: disabled Current/Historical Medications Scheduled Allopurinol (Allopurinol), 100 MG PO DAILY Amantadine HCl (Amantadine HCl), 100 MG PO BID Amlodipine (Norvasc), 10 MG PO DAILY Ascorbic Acid (Vitamin C), 500 MG PO QAM Carbidopa/Levodopa (Sinemet Cr 50MG/200MG), 1 TAB PO BID Dutasteride (Avodart), 0.5 MG PO DAILY Enoxaparin (Lovenox), 150 MG INJ BID Ferrous Sulfate (Iron), 325 MG PO DAILY Fluoxetine (Prozac), 40 MG PO DAILY Insulin Aspart (Novolog Flexpen), 1 DOSE SC UD Insulin Glargine (Lantus), 40 UNITS SC AMPM Isosorbide Mononitrate (Isosorbide Mononitrate ER), 30 MG PO QAM Losartan Potassium (Cozaar), 100 MG PO DAILY Mirabegron (Myrbetriq Er), 50 MG PO DAILY Pantoprazole (Pantoprazole Sodium), 40 MG PO QAM Pregabalin (Lyrica), 300 MG PO BID Ranitidine HCl (Ranitidine HCl), 150 MG PO HS Simvastatin (Zocor), 20 MG PO QPM Spironolactone (Aldactone), 25 MG PO BID Tamsulosin Hcl (Flomax), 0.4 MG PO DAILY Warfarin Sodium (Coumadin), 10 MG PO DAILY Scheduled PRN Colchicine (Colchicine), 0.6 MG PO DAILY PRN for GOUT Oxycodone/Acetaminophen 5MG/325MG (Percocet 5MG/325MG), 1-2 TABLETS PO Q4H PRN for Pain Zolpidem Tartrate (Ambien), 10 MG PO HS PRN for Sleep Allergies Coded Allergies: Penicillins (Verified Allergy, Severe, 06/30/17) SEVERE RXN PER PT Cephalosporins (Verified Allergy, Unknown, 06/30/17) Sulfamethoxazole w/Trimethoprim (Verified Allergy, Unknown, ., 06/30/17) TAKES LASIX AT HOME Lisinopril (Verified Adverse Reaction, Intermediate, Cough, 06/30/17) Physical Exam Vital Signs Date Time Temp Pulse Resp B/P (MAP) Pulse Ox O2 Delivery O2 Flow Rate FiO2 10/01/17 22:36 101 18 182/100 97 Room Air 10/01/17 20:42 36.4 112 20 208/124 98 Room Air Physical Exam GENERAL: Sitting up in bed, alert, well appearing, well nourished, no distress, non-toxic EYE EXAM: normal conjunctiva. OROPHARYNX: no exudate, no erythema, lips, buccal mucosa, and tongue normal and mucous membranes are moist NECK: supple, no nuchal rigidity, no adenopathy, non-tender LUNGS: Clear to auscultation. Normal chest wall mechanics HEART: no murmurs, S1 normal and S2 normal ABDOMEN: Obese, abdomen soft, tender to palpation in the left lower quadrant, normo-active bowel sounds, no masses, no rebound or guarding. BACK: Back is symmetrical on inspection and there is no deformity, no midline tenderness, no CVA tenderness. SKIN: no rashes and no bruising UPPER EXTREMITIES: upper extremities are grossly normal. LOWER EXTREMITIES: No pitting edema. NEURO EXAM: Normal sensorium, cranial nerves II-XII grossly intact, normal speech, no gross weakness of arms, no gross weakness of legs. : Normal external genitalia, testicles are non-tender. Medical Decision & Procedures ER Provider Diagnostic Interpretation: Radiology results as stated below per my review and the radiologist's interpretation: ABDOMEN AND PELVIS CT WITH IV CONTRAST CT DOSE: 1833.55 mGy.cm HISTORY: Acute left lower quadrant abdominal pain abd pain LLq TECHNIQUE: Multiaxial CT images of the abdomen and pelvis were performed following the use of intravenous contrast. A dose lowering technique was utilized adhering to the principles of ALARA. COMPARISON STUDY: CT abdomen and pelvis 10/21/2016. FINDINGS: Mild bilateral bronchial wall thickening of the lung bases. No pneumatosis or pneumoperitoneum. Imaged inferior cardiac chambers are mildly enlarged. Liver, gallbladder, spleen, pancreas and adrenal glands are within normal limits. Mild nonspecific bilateral perinephric stranding. Bilateral renal cysts are noted measuring up to 1.6 cm on the left. Multifocal cortical scarring with parenchymal thinning involves interpolar left kidney. Nonobstructing calculi of the inferior pole left kidney measure up to 6 mm. No ureteral calculi or obstructive uropathy. Bladder is partially decompressed. Mild prostamegaly. Small fat filled left inguinal hernia. Aorta is normal in course and caliber without aneurysm. 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 Multiple venous collateral vessels are again seen along the anterior abdominal wall. There is no bowel obstruction or focal bowel wall thickening. Mild colonic diverticulosis without CT evidence of acute diverticulitis. The appendix is not seen, likely surgically absent. Degenerative changes of the hips, pelvis and spine. Bones appear intact. IMPRESSION: 1. No acute intra-abdominal or intrapelvic abnormality identified. 2. Mild colonic diverticulosis without CT evidence of acute diverticulitis. 3. Left-sided nephrolithiasis with cortical scarring and parenchymal thinning of the inferior pole left kidney. No ureteral calculi or obstructive uropathy. 4. 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 Electronically signed by: Rosas Granado M.D. 10/01/2017 10:41 PM Dictated Date/Time: 10/01/2017 10:31 PM Laboratory Results 10/01/17 21:45 Red Blood Count 5.06, Mean Corpuscular Volume 87.5, Mean Corpuscular Hemoglobin 29.2, Mean Corpuscular Hemoglobin Concent 33.4, Mean Platelet Volume 9.8, Neutrophils (%) (Auto) 64.1, Lymphocytes (%) (Auto) 24.7, Monocytes (%) (Auto) 6.5, Eosinophils (%) (Auto) 3.9, Basophils (%) (Auto) 0.5, Neutrophils # (Auto) 4.13, Lymphocytes # (Auto) 1.59, Monocytes # (Auto) 0.42, Eosinophils # (Auto) 0.25, Basophils # (Auto) 0.03 10/01/17 21:45 Test 10/01/17 20:49 10/01/17 21:45 Urine Color YELLOW Urine Appearance CLEAR (CLEAR) Urine pH 5.0 (4.5-7.5) Urine Specific [place] 1.037 (1.000-1.030) Urine Protein NEG (NEG) Urine Glucose (UA) 3+ (NEG) Urine Ketones NEG (NEG) Urine Occult Blood TRACE (NEG) Urine Nitrite NEG (NEG) Urine Bilirubin NEG (NEG) Urine Urobilinogen NEG (NEG) Urine Leukocyte Esterase NEG (NEG) Urine WBC (Auto) 1-5 /hpf (0-5) Urine RBC (Auto) 0-4 /hpf (0-4) Urine Hyaline Casts (Auto) 0 /lpf (0-5) Urine Epithelial Cells (Auto) 10-20 /lpf (0-5) Urine Bacteria (Auto) NEG (NEG) White Blood Count 6.44 K/uL (4.8-10.8) Red Blood Count 5.06 M/uL (4.7-6.1) Hemoglobin 14.8 g/dL (14.0-18.0) Hematocrit 44.3 % (42-52) Mean Corpuscular Volume 87.5 fL (80-100) Mean Corpuscular Hemoglobin 29.2 pg (25-34) Mean Corpuscular Hemoglobin Concent 33.4 g/dl (32-36) Platelet Count 176 K/uL (130-400) Mean Platelet Volume 9.8 fL (7.4-10.4) Neutrophils (%) (Auto) 64.1 % Lymphocytes (%) (Auto) 24.7 % Monocytes (%) (Auto) 6.5 % Eosinophils (%) (Auto) 3.9 % Basophils (%) (Auto) 0.5 % Neutrophils # (Auto) 4.13 K/uL (1.4-6.5) Lymphocytes # (Auto) 1.59 K/uL (1.2-3.4) Monocytes # (Auto) 0.42 K/uL (0.11-0.59) Eosinophils # (Auto) 0.25 K/uL (0-0.5) Basophils # (Auto) 0.03 K/uL (0-0.2) RDW Standard Deviation 42.5 fL (36.4-46.3) RDW Coefficient of Variation 13.5 % (11.5-14.5) Immature Granulocyte % (Auto) 0.3 % Immature Granulocyte # (Auto) 0.02 K/uL (0.00-0.02) Prothrombin Time 10.4 SECONDS (9.0-12.0) Prothromb Time International Ratio 1.0 (0.9-1.1) Activated Partial Thromboplast Time 29.4 SECONDS (21.0-31.0) Partial Thromboplastin Ratio 1.1 Anion Gap 7.0 mmol/L (3-11) Est Creatinine Clear Calc Drug Dose 81.9 ml/min Estimated GFR () 73.4 Estimated GFR (Non- 63.3 BUN/Creatinine Ratio 9.9 (10-20) Calcium Level 9.1 mg/dl (8.5-10.1) Total Bilirubin 0.3 mg/dl (0.2-1) Direct Bilirubin 0.1 mg/dl (0-0.2) Aspartate Amino Transf (AST/SGOT) 11 U/L (15-37) Alanine Aminotransferase (ALT/SGPT) 25 U/L (12-78) Alkaline Phosphatase 128 U/L (45-117) Total Protein 7.7 gm/dl (6.4-8.2) Albumin 3.6 gm/dl (3.4-5.0) Lipase 147 U/L (73-393) Beta-Hydroxybutyric Acid mg/dL (0.2-2.81) Laboratory results per my review. Medications Administered Medications (Trade) Dose Ordered Sig/Apryl Route Start Time Stop Time Status Last Admin Dose Admin Sodium Chloride 1,000 ml @ 999 mls/hr Q1H1M STAT IV 10/01/17 21:15 10/01/17 22:15 DC 10/01/17 21:53 999 MLS/HR Hydromorphone HCl (Dilaudid Inj) 1 mg NOW STAT IV 10/01/17 21:15 10/01/17 21:16 DC 10/01/17 21:52 1 MG Insulin Human Regular (novoLIN-R U-100 PER UNIT) 2 units NOW STAT IV 10/01/17 22:54 10/01/17 22:55 DC 10/01/17 23:13 2 UNITS ED Course ED COURSE: Vital signs were reviewed and showed hypertensive and tachy vitals. The patients medical record was reviewed The above diagnostic studies were performed and reviewed. ED treatments and interventions as stated above. 0: The patient was evaluated in room C8. A complete history and physical examination was performed. 5: Ordered Dilaudid 1 mg IV, Sodium Chloride 1000 mL @ 999 mL/hr IV. 8: Ordered Insulin Human Regular Insulin 2 units IV. 2310: Upon reevaluation, the patient is resting in bed.I discussed my findings with the patient and he understands and agrees with the treatment plan. Based on the patients age, coexisting illnesses, exam and lab findings the decision to treat as an outpatient was made. The patient remained stable while under my care. The patient appeared well at the time of discharge. Medical Decision Differential diagnoses includes but is not limited to gastritis, peptic ulcer disease, GERD, gallbladder disease, pancreatitis, small bowel obstruction, acute coronary syndrome, pericarditis, ischemic bowel, irritable bowel disease, irritable bowel syndrome, appendicitis, diverticulitis, malignancy, hernia, urinary tract infection, torsion, perforation, trauma, infectious. Patient is a 62-year-old male that presents the ER for left lower quadrant abdominal pain which is been present for the past month. Vitals are stable with exception of hypertension. This did resolve after treatment of his pain. Systolics trended down to the 180s. He had no chest pain or shortness of breath. CBC shows no leukocytosis or anemia. BMP was unremarkable with the exception of a BSG of 340.. LFTs, bilirubin and lipase is unremarkable. UA without ketones. No signs of infection. CT abdomen pelvis was benign. Patient was given fluids and 2 units IV insulin. I did not give him any additional he has he was going home and it was late at night. He will stay up for the next 2 hours and monitor his blood sugar. Uncertain of the true cause of his abdominal pain at this time but with a negative CT scan and his pain been present for the past month he will likely need additional workup by PCP. Discussed with Pt concerning signs and symptoms to watch out for. Pt was instructed to follow up with their PCP and discussed with the patient their option to return to the ED at anytime for persistent or worsening symptoms. The appropriate anticipatory guidance and out-patient management, including indications for return to the emergency department, were explained at length to the patient and understood. Medication Reconcilliation Current Medication List: was personally reviewed by me Blood Pressure Screening Patient's blood pressure: Elevated blood pressure Blood pressure disposition: Elevated BP felt to be situational Impression Primary Impression: Abdominal pain Additional Impression: Hyperglycemia Scribe Attestation The scribe's documentation has been prepared under my direction and personally reviewed by me in its entirety. I confirm that the note above accurately reflects all work, treatment, procedures, and medical decision making performed by me. Departure Information Dispostion Home / Self-Care Referrals Reza Ocasio Jr,D.O. (PCP) Forms Call Back Authorization, HOME CARE DOCUMENTATION FORM, IMPORTANT VISIT INFORMATION Patient Instructions My [facility] Additional Instructions Please follow up with your primary care doctor with in the next 24 hours. Any worsening of your symptoms, please return to the ED immediately. This includes any fevers greater than 100.4, worsening pain, chest pain, shortness breath, persistent nausea, vomiting, unable to eat or drink, or any other concerning signs or symptoms from your standpoint. You were given medications during this visit that will inhibit your ability to drive, operate machinery and work. Please do NOT drive, operate machinery, drink alcohol or work for the next 12hrs. Your given insulin IV. Please not go to bed for the next 2 hours. Please recheck your BSG prior to going to bed. Problem Qualifiers Primary Impression: Abdominal pain Abdominal location: unspecified location Qualified Codes: R10.9 - Unspecified abdominal pain
== END 2017-10-01 23:24 | disposition home or self-care (01) ==
LOC: EDBD 20:39 → C.EDC 20:40
DX: R10.32 Left lower quadrant pain (principal); E11.65 Type 2 diabetes mellitus with hyperglycemia; K21.9 Gastro-esophageal reflux disease without esophagitis; M10.9 Gout, unspecified; G20 Parkinson's disease; Z86.711 Personal history of pulmonary embolism; I10 Essential (primary) hypertension; Z79.4 Long term (current) use of insulin; Z79.01 Long term (current) use of anticoagulants; Z79.899 Other long term (current) drug therapy; Z88.0 Allergy status to penicillin; Z88.1 Allergy status to other antibiotic agents; Z88.2 Allergy status to sulfonamides; Z88.8 Allergy status to other drugs, medicaments and biological substances

== ENCOUNTER 2017-10-13 15:03 | Observation (INO) | payer OTHER ==
[~2017-10-13] VITALS: Ht 175.3 cm; Wt 125.0 kg
[~2017-10-13 15:03] MED LIST changes: -AMLO-114 PO; -ASCO500T3 PO; -COLC0.6T54 PO; -DUTA0.5C PO; -FERR1TAB23 PO; -FLUO40CA8 PO; -ISOS-11 PO; -MIRA1TAB3 PO; -OXYC-57 PO; -SIMV20TA2 PO; -SPIR25TA PO; -TAMS0.4C38 PO; -ZOLP10TA PO
[2017-10-13 15:53] LABS: BASO % 0.3 %; BASO ABS # 0.02 K/uL (0-0.2); EOS % 3.6 %; EOS ABS # 0.26 K/uL (0-0.5); HEMATOCRIT 46.7 % (42-52); HEMOGLOBIN 15.9 g/dL (14.0-18.0); IG# 0.01 K/uL (0.00-0.02); LYMPH % 27.2 %; LYMPH ABS # 1.98 K/uL (1.2-3.4); MEAN CELL VOLUME 87.8 fL (80-100); MEAN CORPUSCULAR HEMOGLOBIN 29.9 pg (25-34); MEAN PLATELET VOLUME 9.8 fL (7.4-10.4); MONO % 6.2 %; MONO ABS # 0.45 K/uL (0.11-0.59); NEUT % 62.6 %; NEUT ABS # 4.56 K/uL (1.4-6.5); PLATELET COUNT 171 K/uL (130-400); RED CELL DISTRIBUTION WIDTH CV 13.5 % (11.5-14.5); RED CELL DISTRIBUTION WIDTH SD 43.7 fL (36.4-46.3); WHITE BLOOD COUNT 7.28 K/uL (4.8-10.8)
[2017-10-13 16:03] LABS: PTT PATIENT 29.6 SECONDS (21.0-31.0)
[2017-10-13] MEDS ORDERED: LOSA100T65 PO (16:14)
[2017-10-13] MEDS ORDERED: RANI150T3 PO (16:14)
[2017-10-13] MEDS ORDERED: [UNRECOGNIZED DRUG - REMARK] PO (16:17)
[2017-10-13] MEDS ORDERED: APIX1TAB PO (16:17)
[2017-10-13] MEDS ORDERED: [UNRECOGNIZED DRUG - REMARK] SC (16:17)
--- NOTE | 2017-10-13 16:17 | DIAGNOSTIC IMAGING REPORT ---
CHEST ONE VIEW PORTABLE CLINICAL HISTORY: CHEST PAIN dyspnea COMPARISON STUDY: 07/10/2017 FINDINGS: Mild stable cardiomegaly. The lungs are clear. Diaphragms smooth. IMPRESSION: Mild stable cardiomegaly. Otherwise negative study. The above report was generated using voice recognition software. It may contain grammatical, syntax or spelling errors. Electronically signed by: Kannan Bhakta M.D. 10/13/2017 4:15 PM Dictated Date/Time: 10/13/2017 4:15 PM
[2017-10-13 16:20] LABS: ALBUMIN 3.4 gm/dl (3.4-5.0); CALCIUM 9.2 mg/dl (8.5-10.1); CREATININE 1.23 mg/dl (0.60-1.40); TOTAL PROTEIN 8.1 gm/dl (6.4-8.2)
[2017-10-13] MEDS ORDERED: SIMV20TA2 PO (17:27)
[2017-10-13] MEDS ORDERED: OPTIRAY 320 IV PRN (17:30)
--- NOTE | 2017-10-13 17:32 | DIAGNOSTIC IMAGING REPORT ---
(CHEST FOR PE) ANGIO WITH CT DOSE: 649.14 mGy.cm HISTORY: 62 years-old Male presents with acute atypical chest pain with shortness of breath TECHNIQUE: Multiple CTA images of the chest were obtained after the intravenous administration of 94 ml Optiray 320. Coronal and sagittal MIPS were obtained from the axial data set and were submitted for review. A dose lowering technique was utilized adhering to the principles of ALARA. COMPARISON: Chest radiograph of same day, CTA chest 04/16/2017 FINDINGS: CTA: Mild multichamber cardiac enlargement without pericardial effusion. Mild coronary arterial calcifications are noted. Thoracic aorta is normal in both course and caliber without aneurysm or dissection. The pulmonary arterial tree is opacified to level of the proximal subsegmental branches and demonstrates no focal filling defects to suggest pulmonary thromboembolic disease. CT CHEST: No dominant thyroid nodule or pathologic adenopathy identified. There is no pneumothorax or pleural effusion. Punctate calcification granuloma of the posterior basal segment left lower lobe. Mild dependent subsegmental bibasilar atelectasis. Mild bilateral bronchial wall thickening is redemonstrated. 2 mm solid nodule of the basal right lower lobe as seen on image 99 series 4. 6 mm solid nodule of the anterior segment right upper lobe appears unchanged with circumscribed margins. No acute process of the imaged upper abdomen. Minimal degree of superficial varices are noted along the anterior abdominal wall. Multilevel facet arthrosis. Bones of the chest appear to be intact. Multilevel endplate spurring. IMPRESSION: 1. No acute intrathoracic abnormality identified, specifically no acute aortic pathology or evidence of pulmonary thromboembolic disease. 2. Unchanged size and appearance of the 6 mm solid nodule of the anterior segment right upper lobe. 3. No pathologic adenopathy or focal airspace consolidation. The above report was generated using voice recognition software. It may contain grammatical, syntax or spelling errors. Electronically signed by: Rosas Granado M.D. 10/13/2017 5:31 PM Dictated Date/Time: 10/13/2017 5:24 PM
[2017-10-13] MEDS ORDERED: AMLO-114 PO (17:46)
[2017-10-13] MEDS ORDERED: MoRPHine SULFATE 2 MG/ML CARP IV STA (18:00)
[2017-10-13] MEDS ORDERED: METOPROLOL TARTRATE 25 MG TAB PO STA (18:46)
[2017-10-13] MEDS ORDERED: POLYETHYLENE (MIRALAX) 17 GM PACK PO PRN (19:00)
[2017-10-13] MEDS ORDERED: ACETAMINOPHEN 325 MG TAB PO PRN (19:00)
[2017-10-13] MEDS ORDERED: ZOLPIDEM TARTRATE 10 MG TAB PO PRN (19:00)
[2017-10-13] MEDS ORDERED: ONDANSETRON INJ 2 MG/ML 2 ML VIAL IV PRN (19:00)
[2017-10-13] MEDS ORDERED: NITROGLYCERIN 0.4 MG SL PER TAB CHARGE SL PRN (19:00)
[2017-10-13] MEDS ORDERED: MAGNESIUM HYDROXIDE SUSP 30 ML UDC PO PRN (19:00)
[2017-10-13] MEDS ORDERED: ZOLPIDEM TARTRATE 5 MG TAB PO PRN (19:00)
[2017-10-13] MEDS ORDERED: ALUMINUM/MAGNESIUM/SIMETH (MAALOX MAX) 30 ML UDC PO PRN (19:00)
[2017-10-13] MEDS ORDERED: COLCHICINE 0.6 MG TAB PO PRN (19:00)
[2017-10-13] MEDS ORDERED: HydrALAZINE HCL 20 MG/ML VIAL IV. PRN (19:00)
--- NOTE | 2017-10-13 19:16 | History and Physical ---
History & Physical Date of Service October 13, 2017. History & Physical CHEST PAIN RULE OUT , [id number]
[2017-10-13] MEDS ORDERED: METOPROLOL TARTRATE 50 MG TAB ONE (19:36)
[2017-10-13] MEDS ORDERED: GLUCAGON FOR INJ 1 MG VIAL IM PRN (19:45)
[2017-10-13] MEDS ORDERED: DEXTROSE 50% 50 ML SYR IV PRN (19:45)
[2017-10-13] MEDS ORDERED: CARBOHYDRATES FOR HYPOGLYCEMIA PO PRN (19:45)
[2017-10-13] MEDS ORDERED: GLUCOSE 10 TABS/TUBE PO PRN (19:45)
[2017-10-13] MEDS ORDERED: GLUCOSE 40% GEL 15 GM TUBE PO PRN (19:45)
[2017-10-13] MEDS ORDERED: ASCO500T3 PO (20:00)
[2017-10-13] MEDS ORDERED: IV FLUIDS COMPLETED PRN (20:00)
--- NOTE | 2017-10-13 20:13 | HISTORY & PHYSICAL EXAMINATION ---
DATE OF ADMISSION: 10/13/2017 This is observation H&P, 35 minutes. CHIEF COMPLAINT: Chest pain. HISTORY OF PRESENT ILLNESS: The patient is a 62-year-old white male with a significant past medical history of diabetes, GERD, gout, Parkinson's disease, pulmonary embolization, and history of CHF, came in to the hospital Emergency Department because of the above chief complaint. The patient reported his chest pain started from yesterday, left anterior chest , 8/10, no radiation, persistent. Denied diaphoresis, denied any association with movement. He got morphine in the Emergency Room, which improved his chest pain. In the ER, ED physician did a chest CT for rule out PE, he has a history of PE, which showed no PE for now. Cardiac enzymes: Troponin with minimal elevation at 0.07. When I interviewed him, his chest pain was improved around 2 to 3 out of 10. Reported mild fatigue and weakness. Otherwise feels hungry and would like to have food to eat. Denied lower extremity swelling, denied palpitations. Denied cough, sputum, shortness of breath. Denied wheezing. Denied nausea, vomiting, abdominal pain, diarrhea, constipation. Denied dysuria, urgency, frequency. Denied facial droop, slurry speeches, or local weakness. Review of systems otherwise unremarkable. PAST MEDICAL HISTORY: Like I mentioned above includes diabetes, GERD, gout, Parkinson's disease, pulmonary embolization, and CHF. FAMILY HISTORY: Includes diabetes, heart disease, and hypertension. SOCIAL HISTORY: Nonsmoker. Denied alcohol abuse disorder. Denied illicit drug abuse. The patient is , lives alone. ALLERGIES: CEPHALOSPORIN, LISINOPRIL, PENICILLIN, BACTRIM, LATEX. MEDICATIONS: Home medications include allopurinol 100 mg p.o. daily, amantadine 100 mg p.o. b.i.d., amlodipine 10 mg p.o. daily, vitamin C 500 mg p.o. q.a.m., azithromycin 250 mg p.o. use as directed, Sinemet 50/200 one tablet p.o. b.i.d., Avodart 0.5 mg p.o. daily, ferrous sulfate 325 mg p.o. daily, Prozac 40 mg p.o. daily, Imdur 30 mg p.o. q.a.m., Cozaar 100 mg p.o. daily, Myrbetriq 50 mg p.o. daily, Lyrica 300 mg p.o. b.i.d., Zantac 150 mg p.o. at bedtime, Zocor 20 mg p.o. q.p.m., Aldactone 25 mg p.o. b.i.d., Flomax 0.4 mg p.o. daily. Other medicines include other blood pressure medicine 1 tablet p.o. daily, and his insulin was glargine 60 units daily. REVIEW OF SYSTEMS: Please see HPI, otherwise 14-point organ systems review negative. PHYSICAL EXAMINATION: VITAL SIGNS: Temperature is 37.1, pulse 72, respiratory rate 16, blood pressure initially was 162/112, currently is 155/94, pulse oximetry was 98% on room air. GENERAL: The patient is a white male, awake, alert, oriented, in no acute distress. HEENT: Head is normocephalic. Pupils equal, round, responsive to light. Ears are normal. Nose is normal. NECK: Supple. Aryan sign is negative. No JVD. No stridor. CHEST: Left anterior chest wall is tender and reproducible; however, when further asking, he was saying it was inside the chest. CARDIOVASCULAR: Heart is regular rhythm. S1 and S2. RESPIRATORY: Lungs with decreased breathing sounds. There is no wheezing, rhonchi, or crackles. GASTROINTESTINAL: Abdomen is soft and nontender. Bowel sounds positive. Bilateral CVA is nontender. MUSCULOSKELETAL: Spine is nontender to palpation. SKIN: He has no rashes. NEUROLOGIC: Cranial nerves II through XII are intact. There are no focal deficits. IMAGING: In the Emergency Room, chest CT studies, no acute intrathoracic abnormalities identified, no evidence of PE. Right upper lobe of the lung, 6 mm solid nodule, has no changes. LABORATORY DATA: WBC 7.2, hemoglobin 15, platelet 171. Sodium 136, potassium unknown. BUN 15, creatinine 1.2. Blood glucose 162. Alkaline phosphate 118. Troponin 0.07. Lipase was 97. PT/INR 10/1. Chest x-ray, like I mentioned above, mild cardiomegaly, otherwise negative studies. EKG study was done in the Emergency Room, sinus rhythm, second degree AV block. There were no obvious ST-T wave changes. ASSESSMENT: A 62-year-old white male with problems below: 1. Chest pain, history of hypertension, congestive heart failure, history of pulmonary embolism. 2. History of pulmonary embolism. Current chest CT studies has no PE; however, with history of recurrent DVT and PE, feel he need to continue anticoagulation. 3. Accelerated hypertension with blood pressure as high as 162/112. 4. Diabetes, insulin dependent. 5. History of catheter-associated urinary tract infection. 6. Gastroesophageal reflux disease. 7. Gout. 8. Parkinson's disease. 9. History of syncope. PLAN: 1. The patient has a history of recurrent DVT and PE although the current CT angio has no PE; however, I feel he needs to continue Eliquis, and actually, I feel Eliquis should be continued for his whole life. 2. For the chest pain, need to rule out ACS. He has risk factors that include diabetes, history of hypertension, and possible CHF. We will continue to follow cardiac enzyme troponin. We will request patient's primary cardiology, Dr. Haider to see the patient. I did order n.p.o. midnight, dobutamine stress test tomorrow if agreed by Dr. Haider and if troponin not trend up. 3. There was no report of potassium levels in the lab. We will repeat potassium. 4. We will treat accelerated hypertension. We will continue home medications. Because the patient's heart rate is in 80s, blood pressure at 162/112 now, I will give beta vanna one dose now and then continue beta vanna metoprolol 25 mg p.o. b.i.d. Continue blood pressure medications. 5. For diabetes, we will check HbA1c, start insulin sliding scale aspart and continue home dose of Lantus. 6. We will continue medicine for the GERD and for the gout and Parkinson's disease. 7. Will check PT/OT evaluation and treatment and foster care case manager consultation for discharge plan. SAIGE
--- NOTE | 2017-10-13 20:20 | EMERGENCY ROOM VISIT NOTE ---
History Report prepared by Tyra: Macy Najera Under the Supervision of: Dr. Danny Houston M.D. First contact with patient: 15:33 Chief Complaint: CHEST PAIN Stated Complaint: CHEST PAIN, SOB Nursing Triage Summary: pt arrives with left chest pain since last night pt reports he took pain medication last night with no relief and states the chest pain has progressively gotten worse he states he does feel short of breath he states hx of Pulmonary embolism and bilateral DVTS pt also states he takes eliquis and did take his dose this AM History of Present Illness The patient is a 62 year old male who presents to the Emergency Room with complaints of intermittent left sided chest pain starting last night. The pain worsens with twisting and movement, but not with deep breaths. He noticed that his hands became cold after lunch today. He notes that he has a clotting disorder and has had many blood clots in the past. His last clot was 6 months ago. He is currently on eliquis. He denies any fever or urinary symptoms. He reports coughing, lightheadedness, and pain/swelling in the legs which is all normal for him. He denies any fall or injury. He lives alone. He denies any missed medications. He has a history of diabetes. He denies any history of atrial fibrillation. Source of History: patient Onset: last night Position: chest (left) Timing: intermittent Modifying Factors (Worsening): movement Associated Symptoms: No fevers, No urinary symptoms Note: Pt reports cold hands. Review of Systems See HPI for pertinent positives & negatives. A total of 10 systems reviewed and were otherwise negative. Past Medical & Surgical Medical Problems: (1) Catheter-associated urinary tract infection (2) Chest pain (3) Diabetes mellitus (4) Dyspnea (5) Gastroesophageal reflux disease (6) Gout (7) Parkinson's disease (8) Pulmonary embolism (9) Right upper extremity numbness (10) Syncope (11) Uncontrolled hypertension (12) Weakness Old medical records were reviewed. Nurse's notes were reviewed and I agree with. Family History Cancer Diabetes mellitus FH: heart disease Hypertension Social History Smoking Status: Never Smoker Alcohol Use: none Drug Use: none Marital Status: Housing Status: lives alone Occupation Status: disabled Current/Historical Medications Scheduled Allopurinol (Allopurinol), 100 MG PO DAILY Amantadine HCl (Amantadine HCl), 100 MG PO BID Amlodipine (Norvasc), 10 MG PO DAILY Apixaban (Eliquis), 2.5 MG PO BID Ascorbic Acid (Vitamin C), 500 MG PO QAM Carbidopa/Levodopa (Sinemet Cr 50MG/200MG), 1 TAB PO BID Dutasteride (Avodart), 0.5 MG PO DAILY Ferrous Sulfate (Iron), 325 MG PO DAILY Fluoxetine (Prozac), 40 MG PO DAILY Isosorbide Mononitrate (Isosorbide Mononitrate ER), 30 MG PO QAM Losartan Potassium (Cozaar), 100 MG PO DAILY Mirabegron (Myrbetriq Er), 50 MG PO DAILY Pregabalin (Lyrica), 300 MG PO BID Ranitidine Hcl (Zantac), 150 MG PO HS Simvastatin (Zocor), 20 MG PO QPM Spironolactone (Aldactone), 25 MG PO BID Tamsulosin Hcl (Flomax), 0.4 MG PO DAILY [Unknown BP Med], 1 TAB PO DAILY [Unknown Insulin], 60 UNITS SC QAM Scheduled PRN Colchicine (Colchicine), 0.6 MG PO DAILY PRN for Gout Flare Up Oxycodone/Acetaminophen 5MG/325MG (Percocet 5MG/325MG), 1-2 TABLETS PO Q4H PRN for Pain Zolpidem Tartrate (Ambien), 10 MG PO HS PRN for Sleep Allergies Coded Allergies: Penicillins (Verified Allergy, Severe, 06/30/17) SEVERE RXN PER PT Cephalosporins (Verified Allergy, Unknown, 06/30/17) Sulfamethoxazole w/Trimethoprim (Verified Allergy, Unknown, ., 06/30/17) TAKES LASIX AT HOME Lisinopril (Verified Adverse Reaction, Intermediate, Cough, 06/30/17) Physical Exam Vital Signs Date Time Temp Pulse Resp B/P (MAP) Pulse Ox O2 Delivery O2 Flow Rate FiO2 10/13/17 19:30 69 16 168/99 96 Room Air 10/13/17 18:25 81 14 162/112 98 Room Air 10/13/17 17:28 72 16 180/120 98 Room Air 10/13/17 17:08 62 16 170/133 98 Room Air 10/13/17 15:22 63 10/13/17 15:13 98 Room Air 10/13/17 15:13 37.1 72 16 155/94 98 Room Air Physical Exam General: Non-ill appearing older male in no acute distress. HEENT: Normal cephalic atraumatic. Pupils are equal round and reactive to light. Extraocular movements are intact. Oropharynx is pink with moist mucous membranes. No swelling of the mouth lips or tongue. Neck: Supple with a midline trachea. No meningeal signs or stiffness, no JVD or bruits. No Stridor. Chest: Clear to auscultation bilaterally. No wheezes or rhonchi. No increased work of breathing. Tenderness to palpation of left chest. Heart: regular rate and rhythm. Abdomen: Soft nontender, nondistended without rebound guarding or rigidity. Extremities: No cyanosis clubbing or edema. No calf tenderness or assymetry. Chronic vascular changes in legs bilaterally. Spine/Back. Non tender to palpation. No CVA tenderness Skin: Good turgor without rashes. Neurologic exam: Cranial nerves two through 12 are intact. Motor and sensation are intact and symmetrical throughout. Medical Decision & Procedures ER Provider Diagnostic Interpretation: X-ray results as stated below per interpretation by me and the radiologist. Radiology results as stated below per my review and radiologist interpretation: CHEST ONE VIEW PORTABLE CLINICAL HISTORY: CHEST PAIN dyspnea COMPARISON STUDY: 07/10/2017 FINDINGS: Mild stable cardiomegaly. The lungs are clear. Diaphragms smooth. IMPRESSION: Mild stable cardiomegaly. Otherwise negative study. The above report was generated using voice recognition software. It may contain grammatical, syntax or spelling errors. Electronically signed by: Kannan Bhakta M.D. 10/13/2017 4:15 PM Dictated Date/Time: 10/13/2017 4:15 PM (CHEST FOR PE) ANGIO WITH CT DOSE: 649.14 mGy.cm HISTORY: 62 years-old Male presents with acute atypical chest pain with shortness of breath TECHNIQUE: Multiple CTA images of the chest were obtained after the intravenous administration of 94 ml Optiray 320. Coronal and sagittal MIPS were obtained from the axial data set and were submitted for review. A dose lowering technique was utilized adhering to the principles of ALARA. COMPARISON: Chest radiograph of same day, CTA chest 04/16/2017 FINDINGS: CTA: Mild multichamber cardiac enlargement without pericardial effusion. Mild coronary arterial calcifications are noted. Thoracic aorta is normal in both course and caliber without aneurysm or dissection. The pulmonary arterial tree is opacified to level of the proximal subsegmental branches and demonstrates no focal filling defects to suggest pulmonary thromboembolic disease. CT CHEST: No dominant thyroid nodule or pathologic adenopathy identified. There is no pneumothorax or pleural effusion. Punctate calcification granuloma of the posterior basal segment left lower lobe. Mild dependent subsegmental bibasilar atelectasis. Mild bilateral bronchial wall thickening is redemonstrated. 2 mm solid nodule of the basal right lower lobe as seen on image 99 series 4. 6 mm solid nodule of the anterior segment right upper lobe appears unchanged with circumscribed margins. No acute process of the imaged upper abdomen. Minimal degree of superficial varices are noted along the anterior abdominal wall. Multilevel facet arthrosis. Bones of the chest appear to be intact. Multilevel endplate spurring. IMPRESSION: 1. No acute intrathoracic abnormality identified, specifically no acute aortic pathology or evidence of pulmonary thromboembolic disease. 2. Unchanged size and appearance of the 6 mm solid nodule of the anterior segment right upper lobe. 3. No pathologic adenopathy or focal airspace consolidation. The above report was generated using voice recognition software. It may contain grammatical, syntax or spelling errors. Electronically signed by: Rosas Granado M.D. 10/13/2017 5:31 PM Dictated Date/Time: 10/13/2017 5:24 PM Laboratory Results 10/13/17 15:25 Red Blood Count 5.32, Mean Corpuscular Volume 87.8, Mean Corpuscular Hemoglobin 29.9, Mean Corpuscular Hemoglobin Concent 34.0, Mean Platelet Volume 9.8, Neutrophils (%) (Auto) 62.6, Lymphocytes (%) (Auto) 27.2, Monocytes (%) (Auto) 6.2, Eosinophils (%) (Auto) 3.6, Basophils (%) (Auto) 0.3, Neutrophils # (Auto) 4.56, Lymphocytes # (Auto) 1.98, Monocytes # (Auto) 0.45, Eosinophils # (Auto) 0.26, Basophils # (Auto) 0.02 10/13/17 15:25 Test 10/13/17 15:25 10/13/17 15:47 White Blood Count 7.28 K/uL (4.8-10.8) Red Blood Count 5.32 M/uL (4.7-6.1) Hemoglobin 15.9 g/dL (14.0-18.0) Hematocrit 46.7 % (42-52) Mean Corpuscular Volume 87.8 fL (80-100) Mean Corpuscular Hemoglobin 29.9 pg (25-34) Mean Corpuscular Hemoglobin Concent 34.0 g/dl (32-36) Platelet Count 171 K/uL (130-400) Mean Platelet Volume 9.8 fL (7.4-10.4) Neutrophils (%) (Auto) 62.6 % Lymphocytes (%) (Auto) 27.2 % Monocytes (%) (Auto) 6.2 % Eosinophils (%) (Auto) 3.6 % Basophils (%) (Auto) 0.3 % Neutrophils # (Auto) 4.56 K/uL (1.4-6.5) Lymphocytes # (Auto) 1.98 K/uL (1.2-3.4) Monocytes # (Auto) 0.45 K/uL (0.11-0.59) Eosinophils # (Auto) 0.26 K/uL (0-0.5) Basophils # (Auto) 0.02 K/uL (0-0.2) RDW Standard Deviation 43.7 fL (36.4-46.3) RDW Coefficient of Variation 13.5 % (11.5-14.5) Immature Granulocyte % (Auto) 0.1 % Immature Granulocyte # (Auto) 0.01 K/uL (0.00-0.02) Prothrombin Time 10.6 SECONDS (9.0-12.0) Prothromb Time International Ratio 1.0 (0.9-1.1) Activated Partial Thromboplast Time 29.6 SECONDS (21.0-31.0) Partial Thromboplastin Ratio 1.1 Anion Gap 4.0 mmol/L (3-11) Est Creatinine Clear Calc Drug Dose 80.7 ml/min Estimated GFR () 72.0 Estimated GFR (Non- 62.1 BUN/Creatinine Ratio 12.2 (10-20) Calcium Level 9.2 mg/dl (8.5-10.1) Total Bilirubin 0.6 mg/dl (0.2-1) Direct Bilirubin mg/dl (0-0.2) Aspartate Amino Transf (AST/SGOT) U/L (15-37) Alanine Aminotransferase (ALT/SGPT) 29 U/L (12-78) Alkaline Phosphatase 118 U/L (45-117) Total Protein 8.1 gm/dl (6.4-8.2) Albumin 3.4 gm/dl (3.4-5.0) Lipase 97 U/L (73-393) Bedside Troponin I 0.070 ng/ml (0-0.045) Laboratory studies as stated above per my review. Medications Administered Medications (Trade) Dose Ordered Sig/Apryl Route Start Time Stop Time Status Last Admin Dose Admin Morphine Sulfate (MoRPHine SULFATE INJ) 2 mg NOW STAT IV 10/13/17 18:00 10/13/17 18:01 DC 10/13/17 18:08 2 MG Metoprolol Tartrate (Lopressor Tab) 50 mg STK-MED ONCE .ROUTE 10/13/17 19:36 10/13/17 19:37 DC 10/13/17 19:39 25 MG ECG Per My Interpretation Indication: chest pain Rate (beats per minute): 69 Rhythm: normal sinus Findings: nonspecific-ST abn, other (2nd degree AV block, nonspecific T wave abnormality, poor baseline) Comparison ECG Date: 11-Jul-2017 Change: no significant change ED Course 1535: Past medical records reviewed. The patient was evaluated in room A3, and a complete history and physical examination were performed. 1759: Upon reevaluation, the patient is stable. I discussed the results and treatment plan with the patient. He verbalized agreement of the treatment plan. The patient will be evaluated for further management. 1800: Morphine Sulfate 2 mg IV. 1825: I discussed the patient's case with Dr. Arellano, [facility] hospitalist. The patient will be evaluated for further management. Medical Decision Differentials include, but are not limited to; PE, acute coronary syndrome, arrhythmia, musculoskeletal, electrolyte or metabolic abnormality. This patient comes in as described above. He was placed in room A3. He has a long history of blood clotting disorder and is on Eliquis. He has had a previous filter which he says is not working and he has left-sided chest pain. It is reproducible and atypical for cardiac but he thinks it feels like his previous PEs. IV access established, aEKG was obtained as well as multiple blood testing. His EKG shows what looks like a Mobitz type II and he is dropping P wave conductions fairly frequently. when I review the old EKGs this was present but not as prominent before. He has no ischemic changes. His troponin is mildly elevated at 0.07. Chest x-ray is unremarkable. He has no significant electrolyte or metabolic abnormalities. CAT scan was unremarkable and shows no evidence of PE or aortic or other pathology. He was given IV morphine for his pain. Given the fact that he has a mildly elevated troponin as well as some arrhythmia with some P-wave conduction issues I do think he needs to be observed/admitted for further cardiac treatment and evaluation I have consulted Dr. Arellano who saw the patient in the ER for these measures. Medication Reconcilliation Current Medication List: was personally reviewed by me Blood Pressure Screening Patient's blood pressure: Elevated blood pressure Referred to hospitalist. Consults Time Called: 180 Consulting Physician: Dr. Arellano, [facility] hospitalist Returned Call: [phone] Discussed the patient's case. The patient will be evaluated for further management. Impression Primary Impression: Left sided chest pain Additional Impression: Elevated troponin Scribe Attestation The scribe's documentation has been prepared under my direction and personally reviewed by me in its entirety. I confirm that the note above accurately reflects all work, treatment, procedures, and medical decision making performed by me. Departure Information Dispostion Being Evaluated By Hospitalist Referrals Reza Ocasio Jr,D.O. (PCP) Patient Instructions My [facility] Problem Qualifiers
[2017-10-13] MEDS: INSULIN ASPART 100 UNITS/ML 3 ML PEN SC SCH (21:00)
[2017-10-13] MEDS: METOPROLOL TARTRATE 25 MG TAB PO SCH (21:13)
[2017-10-13] MEDS: SPIRONOLACTONE 25 MG TAB PO SCH (21:13)
[2017-10-13] MEDS: AMANTADINE HCL 100 MG CAP PO SCH (21:14)
[2017-10-13] MEDS: APIXABAN 2.5 MG TAB PO SCH (21:15)
[2017-10-13] MEDS: RANITIDINE HCL 150 MG TAB PO SCH (21:15)
[2017-10-13] MEDS: SIMVASTATIN 20 MG TAB PO SCH (21:16)
[2017-10-13] MEDS: CARBIDOPA/LEVODOPA 50/200MG EXT REL TAB PO SCH (21:16)
[2017-10-13] MEDS: PREGABALIN 150 MG CAP PO SCH (21:20)
[2017-10-13] MEDS ORDERED: ISOS-11 PO (21:36)
[2017-10-13] MEDS ORDERED: OXYC-57 PO (22:48)
[2017-10-13] MEDS ORDERED: MIRA1TAB3 PO (22:48)
[2017-10-13] MEDS ORDERED: ZOLP10TA PO (22:52)
[2017-10-13] MEDS ORDERED: FERR1TAB23 PO (22:52)
[2017-10-13] MEDS ORDERED: COLC0.6T54 PO (22:52)
[2017-10-13] MEDS ORDERED: TAMS0.4C38 PO (22:52)
[2017-10-13] MEDS ORDERED: DUTA0.5C PO (22:52)
[2017-10-13] MEDS ORDERED: FLUO40CA8 PO (22:52)
[2017-10-13 22:57] VITALS: BP 171/114; PULSE 82; TEMP 36.6; Ht 175.3 cm; Wt 125.0 kg
[2017-10-13] MEDS ORDERED: SPIR25TA PO (23:35)
[2017-10-13 23:53] VITALS: BP 187/94; PULSE 67; TEMP 36.4; O2SAT 92
[2017-10-14 04:24] VITALS: BP 135/86; PULSE 71; TEMP 36.4; O2SAT 96
[2017-10-14] MEDS: INSULIN ASPART 100 UNITS/ML 3 ML PEN SC SCH ×4 (06:30→22:20)
[2017-10-14 07:38] LABS: BLOOD UREA NITROGEN 15 mg/dl (7-18); CALCIUM 8.3 mg/dl (8.5-10.1); CARBON DIOXIDE 27 mmol/L (21-32); CHOLESTEROL 140 mg/dl (0-200); CREATININE 1.01 mg/dl (0.60-1.40); GLUCOSE 111 mg/dl (70-99); POTASSIUM 3.8 mmol/L (3.5-5.1); SODIUM 139 mmol/L (136-145)
[2017-10-14 07:40] VITALS: BP 145/82; PULSE 67; TEMP 36.4; O2SAT 95
[2017-10-14 07:43] LABS: LDL CHOLESTEROL CALCULATED 78 mg/dl; PHOSPHORUS 3.2 mg/dl (2.5-4.9)
[2017-10-14] MEDS: ISOSORBIDE MONONITRATE 30 MG TABCR PO SCH (08:39)
[2017-10-14] MEDS: CARBIDOPA/LEVODOPA 50/200MG EXT REL TAB PO SCH ×2 (08:39→19:52)
[2017-10-14] MEDS: TAMSULOSIN HCL 0.4 MG CAP PO SCH (08:39)
[2017-10-14] MEDS: ASCORBIC ACID 500 MG TAB PO SCH (08:39)
[2017-10-14] MEDS: APIXABAN 2.5 MG TAB PO SCH ×2 (08:39→19:54)
[2017-10-14] MEDS: ALLOPURINOL 100 MG TAB PO SCH (08:40)
[2017-10-14] MEDS: AMANTADINE HCL 100 MG CAP PO SCH ×2 (08:40→19:53)
[2017-10-14] MEDS: LOSARTAN POTASSIUM 50 MG TAB PO SCH (08:40)
[2017-10-14] MEDS: METOPROLOL TARTRATE 25 MG TAB PO SCH ×2 (08:40→19:52)
[2017-10-14] MEDS: FLUOXETINE HCL 20 MG CAP PO SCH (08:40)
[2017-10-14] MEDS: MIRABEGRON ER 25 MG TAB PO SCH (08:41)
[2017-10-14] MEDS: SPIRONOLACTONE 25 MG TAB PO SCH ×2 (08:41→16:58)
[2017-10-14] MEDS: AMLODIPINE BESYLATE 5 MG TAB PO SCH (08:41)
[2017-10-14] MEDS: PREGABALIN 150 MG CAP PO SCH ×2 (08:44→19:51)
[2017-10-14] MEDS: INSULIN GLARGINE SOLOSTAR 100 UNITS/ML 3 ML PEN SC SCH ×3 (09:00→09:14)
[2017-10-14] MEDS: OXYCODONE/ACETAMINOPHEN 5-325 TAB PO PRN (09:07)
--- NOTE | 2017-10-14 10:29 | CARDIOLOGY CONSULTATION ---
DATE OF CONSULTATION: 10/14/2017 REFERRING PHYSICIAN: Dr. Arellano INDICATIONS: Chest pain, abdominal pain. HISTORY OF PRESENT ILLNESS: The patient is a 62-year-old male with a complex history which includes: 1. Hypercoagulable state with a prior history of MTHFR mutation and antiphospholipid antibody syndrome with recurrent deep venous thrombosis and saddle pulmonary embolus in 2003 as well as in October 2014. 2. Indwelling IVC filter with chronic stasis edema and peripheral thrombosis. 3. History of past chest pain with diagnostic cardiac catheterization, negative for coronary atherosclerosis on multiple occasions including diagnostic cardiac catheterization at [facility] in 2001, carotid study at [facility], [place] and [place]. 4. Parkinson's disease. 5. Morbid obesity. 6. Hypertension. 7. Diabetes mellitus. 8. Neurogenic bladder. 9. History of left renal neoplasm ablation. The patient presents on this admission noting having developed sharp, intermittent pain in the left side of the chest and upper abdomen, "symptoms did not feel quite like a heart attack", but he was concerned regarding their severity and ongoing issues. Symptoms are slightly worse with movement and twisting. He has been noting some difficulties with abdominal bloating and cramping as well. Notes no overt heartburn. Notes no melena or hematochezia. Notes no dysuria or hematuria. Weight has been stable. Sleep disruption is chronic. Notes no changes in medications other than change from warfarin to apixaban, change in antihypertensive regimen slightly. ALLERGIES: MULTIPLE AND INCLUDE CEPHALOSPORINS, LISINOPRIL, PENICILLIN, SULFAMETHOXAZOLE AND TRIMETHOPRIM. MEDICATIONS: Per reconciliation list, allopurinol 100 mg p.o. daily, amantadine 100 mg b.i.d., amlodipine 10 mg p.o. daily, apixaban 2.5 mg b.i.d., vitamin C 500 mg q.a.m., Sinemet CR 50/200 one tablet b.i.d., colchicine p.r.n. gout, Avodart 0.5 mg p.o. daily, ferrous sulfate 325 mg p.o. daily, Prozac 40 mg p.o. daily, isosorbide mononitrate 30 mg q.a.m., losartan 100 mg q.a.m., Myrbetriq 50 mg daily, Lyrica 300 b.i.d., Zantac 150 mg daily at bedtime, Zocor 20 mg q.p.m., spironolactone 25 mg b.i.d., tamsulosin 0.4 mg daily, Ambien p.r.n. sleep, insulin and unknown medication per list. The patient is unsure of specifics. The patient does use furosemide per list as an outpatient as well as simvastatin 20 mg p.o. daily per list. PAST SURGICAL HISTORY: Notable for as noted multiple cardiac catheterizations, laparoscopic repair of right inguinal hernia in 2013, laparoscopic left-sided renal neoplasm ablation, appendectomy, tonsillectomy, pilonidal cyst repair, and past back surgeries as well as vasectomy. FAMILY HISTORY: Positive for diabetes and hypertension. SOCIAL HISTORY: The patient resides in [place]. He is a nonsmoker, nondrinker. He ambulates with a walker. PHYSICAL EXAMINATION: VITAL SIGNS: Heart rate is 67, blood pressure is 145/62. HEENT EXAMINATION: Normocephalic and atraumatic. Nares without discharge. Throat was clear. NECK: Supple without thyromegaly, lymphadenopathy, JVD. There are no carotid bruits. LUNGS: Clear with good aeration to the bases. CARDIOVASCULAR EXAMINATION: Regular. There is no S3 gallop. ABDOMEN: Soft, obese, nontender. EXTREMITIES: Without cyanosis or clubbing. There is chronic stasis edema with intact distal pulses. LABORATORY DATA: Troponin is negative x2 at 0.015. EKG reveals sinus rhythm with Mobitz type 1 second-degree AV block. Note, this is in contrary to the diagnosis on the actual EKG. LABORATORY STUDIES: Sodium is 139, potassium is 3.8, chloride is 108, bicarb is 27, BUN 15, creatinine is 1.0. Cholesterol is 140, LDL 78, HDL is 36. PT and INR are normal. Chest x-ray revealed no infiltrate or edema. CTA of the chest revealed no evidence of pulmonary embolus. IMPRESSION: This is a 62-year-old male with a history as noted longstanding difficulties with abdominal and chest discomfort. Past evaluations including multiple nonobstructive cardiac catheterizations, though none recent. Symptoms appear atypical, worse with movement in the setting of marked exacerbation of hypertension. The patient is scheduled already for a dobutamine stress echocardiography, we will proceed though current findings do not suggest ischemia. We will plan on adjusting antihypertensive regimen while in the hospital in addition. Further recommendations pending results of stress testing.
[2017-10-14] MEDS ORDERED: ATROPINE SULFATE 0.1 MG/ML 5ML SYR ONE (10:47)
[2017-10-14] MEDS ORDERED: METOPROLOL TARTRATE 1 MG/ML VIAL ONE ×3 (10:47→11:27)
[2017-10-14] MEDS ORDERED: DOBUTamine HCL 12.5 MG/ML 20 ML VIAL ONE (10:47)
[2017-10-14] MEDS ORDERED: PERFLUTREN LIPID MICROSPHERE (DEFINITY) IV ONE (12:46)
--- NOTE | 2017-10-14 15:26 | DOBUTAMINE ECHO ---
*NOTICE TO RECEIVING CONSTITUTION PARTY AGENCY This information is strictly Confidential and protected under [place] law. [place] law prohibits you from making any further disclosure of this information unless further disclosure is expressly permitted by the written consent of the person to whom it pertains or is authorized by law. A general authorization for the release of medical or other information is not sufficient for this purpose. Hospital accepts no responsibility if the information is made available to any other person, INCLUDING THE PATIENT. Interpretation Summary * Name: GARY SCHWAB Study Date: 10/14/2017 09:58 AM BP: 131/83 mmHg * Patient Location: [facility] HR: 75 * : 1955 (M/d/yyyy) Gender: Male Height: 69 in * Age: 62 yrs Ethnicity: [place] Weight: 277 lb * Ordering Physician: Jose Arellano * Referring Physician: Self, Referred * Performed By: Patrica Amador RDCS * * Reason For Study: Chest pain * BSA: 2.4 m2 * The stress echocardiogram is negative for inducible ischemia. * -- Conclusions -- * Resting EKG revealed sinus rhythm with Mobitz type I second-degree AV block (Wenckebach) and early repolarization pattern * Stress EKG: No stress-induced ischemic changes were or arrhythmias were observed. Second-degree AV block resolved at higher heart rates and returned in the recovery phase * The left ventricular wall motion is normal at rest. * The left ventricular ejection fraction increases normally with stress. The left ventricular end-systolic cavity size reduces post-stress (normal response). The left ventricular wall motion with stress is normal. * There is no significant valvular disease. * There is no pericardial effusion Procedure Details * DOBUTAMINE ECHO, CPT#60008 Left Ventricle * The left ventricle is normal in size. * There is mild concentric left ventricular hypertrophy. * Ejection Fraction = 55-60%. * Left ventricular systolic function is normal. * The left ventricular wall motion is normal at rest. * The left ventricular ejection fraction increases normally with stress. The left ventricular end-systolic cavity size reduces post-stress (normal response). The left ventricular wall motion with stress is normal. Right Ventricle * The right ventricle is normal in size and function. Atria * The left atrial size is normal. * Right atrial size is normal. * No ASD detected; PFO is not assessed. Mitral Valve * The mitral valve anatomy is normal. * There is no mitral valve stenosis. * Significant mitral regurgitation is absent. Tricuspid Valve * The tricuspid valve is not well visualized. * There is no tricuspid stenosis. * Significant tricuspid regurgitation is absent. Aortic Valve * The aortic valve is trileaflet. * Aortic valve sclerosis mild, without significant aortic valvular stenosis. * There is no significant aortic regurgitation. Pulmonic Valve * The pulmonic valve is not well visualized. Great Vessels * The aortic root and proximal ascending aorta are normal sized. Pericardium * There is no pericardial effusion. Stress Parameters * Resting EKG revealed sinus rhythm with Mobitz type I second-degree AV block (Wenckebach) and early repolarization pattern * Stress EKG: No stress-induced ischemic changes were or arrhythmias were observed. Second-degree AV block resolved at higher heart rates and returned in the recovery phase * The stress portion of this study was personally supervised by the undersigned interpreting physician. * Rest heart rate was '75' BPM. * Rest blood pressure was '131/83' * Maximum heart rate achieved was 150 bpm. * Maximum heart rate was 95 % of maximum age-predicted heart rate. * Maximum blood pressure was '170/77' * Maximum Dobutamine infusion rate was '40' mcg/kg/min. * A total of 0.5 mg of intravenous Atropine was used to supplement Dobutamine for heart rate response. * Dobutamine infusion was terminated due to achieving target heart rate * A total of 15 mg of IV Metoprolol was administered to reverse Dobutamine-induced tachycardia. * The patient did not exhibit any symptoms during drug infusion. Left Ventricular Diastolic Function * Grade I diastolic dysfunction, (abnormal relaxation pattern). MMode 2D Measurements and Calculations IVSd 1.1 cm LVIDd 3.9 cm LVIDs 2.6 cm LVPWd 1.1 cm IVS/LVPW 1.1 FS 32.3 % EDV(Teich) 64.0 ml ESV(Teich) 24.8 ml EF(Teich) 61.3 % EDV(cubed) 57.1 ml ESV(cubed) 17.7 ml EF(cubed) 69.0 % LV mass(C)d 136.3 grams LV mass(C)dI 57.4 grams/m\S\2 SV(Teich) 39.2 ml SI(Teich) 16.5 ml/m\S\2 SV(cubed) 39.4 ml SI(cubed) 16.6 ml/m\S\2 Ao root diam 3.1 cm Ao root area 7.6 cm\S\2 ACS 2.3 cm LA dimension 3.0 cm asc Aorta Diam 2.4 cm LA/Ao 0.97 LVOT diam 2.0 cm LVOT area 3.2 cm\S\2 LVAd ap4 29.5 cm\S\2 LVLd ap4 7.4 cm EDV(MOD-sp4) 95.5 ml EDV(sp4-el) 99.5 ml LVAs ap4 18.1 cm\S\2 LVLs ap4 6.5 cm ESV(MOD-sp4) 41.8 ml ESV(sp4-el) 42.5 ml EF(MOD-sp4) 56.3 % EF(sp4-el) 57.3 % LVAd ap2 18.3 cm\S\2 LVLd ap2 7.5 cm EDV(MOD-sp2) 38.0 ml EDV(sp2-el) 38.1 ml LVAs ap2 10.6 cm\S\2 LVLs ap2 6.0 cm ESV(MOD-sp2) 16.3 ml ESV(sp2-el) 16.1 ml EF(MOD-sp2) 57.1 % EF(sp2-el) 57.8 % LVLd %diff 0.63 % EDV(MOD-bp) 60.1 ml LVLs %diff -9.46 % ESV(MOD-bp) 26.3 ml EF(MOD-bp) 56.2 % SV(MOD-sp4) 53.8 ml SI(MOD-sp4) 22.7 ml/m\S\2 SV(MOD-sp2) 21.7 ml SI(MOD-sp2) 9.2 ml/m\S\2 SV(MOD-bp) 33.8 ml SI(MOD-bp) 14.3 ml/m\S\2 SV(sp4-el) 57.0 ml SI(sp4-el) 24.0 ml/m\S\2 SV(sp2-el) 22.0 ml SI(sp2-el) 9.3 ml/m\S\2 Doppler Measurements and Calculations MV E max janine 60.4 cm/sec MV A max janine 83.8 cm/sec MV E/A 0.72 Ao V2 max 70.6 cm/sec Ao max PG 2.0 mmHg Ao max PG (full) -0.37 mmHg YUNIER(V,A) 3.5 cm\S\2 YUNIER(V,D) 3.5 cm\S\2 LV V1 max PG 2.4 mmHg LV V1 max 76.8 cm/sec PA V2 max 75.9 cm/sec PA max PG 2.3 mmHg PA acc slope 312.8 cm/sec\S\2 PA acc time 0.16 sec PI max janine 135.5 cm/sec PI max PG 7.3 mmHg PI dec slope 64.1 cm/sec\S\2 PI P1/2t 619.3 msec PA pr(Accel) 6.1 mmHg
[2017-10-14 15:32] VITALS: BP 105/67; PULSE 77; TEMP 36.3; O2SAT 94
[2017-10-14] MEDS ORDERED: LOSA50TA6 PO (16:20)
[2017-10-14] MEDS ORDERED: SPIR50TA2 PO (16:20)
[2017-10-14] MEDS ORDERED: TPRSR25 PO (16:20)
[2017-10-14] MEDS ORDERED: LSX80 PO (16:20)
[2017-10-14] MEDS ORDERED: AMLO-114 PO (16:20)
[2017-10-14] MEDS ORDERED: ISOS-11 PO (16:20)
--- NOTE | 2017-10-14 16:31 | Discharge Instructions ---
Discharge Instructions Date of Service October 14, 2017. Admission Reason for Admission: Chest Pain Discharge Discharge Diagnosis / Problem: Chest Pain Discharge Goals Goal(s): Decrease discomfort, Improve function, Increase independence Activity Recommendations Activity Limitations: resume your previous activity . Instructions / Follow-Up Instructions / Follow-Up Chest Pain: - Thankfully your cardiac enzymes and your stress test were good and do not show that this was related to a heart attack or a heart issue - It is possible this is more GI (reflux or abdominal bloating) versus a muscle strain/injury. Also there is no blood clots in your lungs which is good. - Unfortunately with the medications from the stress test this can cause some weakness given your Parkinson's but should resolve as the medicine comes out of your system. - Recommend to take it easy over the next day or so and gradually increase your activity. - Will help set up an appointment with your family doctor and our telehealth case manager will call you. HTN: - Your blood pressure tends to run high occasionally but has been improving while you were here. Your medications may need to have further adjustments in the future and will be important for your family doctor and agricultural engineer to continue to monitor - Prescriptions were sent to [facility] on [address] in [place]. If you have questions about these please talk with your family doctor. - These medications should be ready for you when you get there. - Toprol XL 12.5 mg daily was added to help control blood pressure further and this was discussed with your heart doctor. Current Hospital Diet Patient's current hospital diet: AHA Diet (Heart Healthy), Diabetes Type 2 Diet Discharge Diet Recommended Diet: AHA Diet (Heart Healthy), Diabetes Type 2 Diet Pending Studies Studies pending at discharge: no Laboratory Results Lipid Panel Test 10/14/17 06:46 Range/Units Triglycerides Level 130 0-150 mg/dl Cholesterol Level 140 0-200 mg/dl HDL Cholesterol 36 mg/dl Cholesterol/HDL Ratio 3.9 LDL Cholesterol, Calculated 78 mg/dl Medical Emergencies . Who to Call and When: Medical Emergencies: If at any time you feel your situation is an emergency, please call 911 immediately. . Non-Emergent Contact Non-Emergency issues call your: Primary Care Provider Call Non-Emergent contact if: you have a fever, your pain is concerning you, you have any medication questions . . "Provider Documentation" section prepared by Kaylie Becerra. .
--- NOTE | 2017-10-14 17:24 | Discharge Summary ---
Discharge Summary Date of Service October 14, 2017. Discharge Summary Admission Date: October 13, 2017 at 18:53 Discharge Date: October 14, 2017 Discharge Disposition: Home Principal Diagnosis: Chest Pain Problems/Secondary Diagnoses: Medical Problems: (1) Abdominal pain (2) Anticoagulated (3) Back pain (4) Bronchitis (5) Soni infection (6) Catheter-associated urinary tract infection (7) Cephalgia (8) Chest pain (9) Chest pain (10) Chest pain of uncertain etiology (11) Chest pain, pleuritic (12) Chronic chest pain (13) Complicated UTI (urinary tract infection) (14) Complication, blocked Wills catheter (15) Diabetes mellitus (16) Dyspnea (17) Dyspnea on exertion (18) Elevated lactic acid level (19) Elevated troponin (20) Elevated troponin (21) Epigastric abdominal pain (22) Fall (23) Gastroesophageal reflux disease (24) General weakness (25) Gout (26) Head trauma (27) Headache (28) Hemoptysis (29) History of pulmonary embolism (30) HTN (hypertension) (31) Hyperglycemia (32) Hyperglycemia (33) Hypertension (34) Hypoxia (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 (36) Left sided chest pain (37) Lower abdominal pain (38) Neck pain (39) Neurogenic bladder (40) Non-cardiac chest pain (41) Parkinson's disease (42) Poorly-controlled hypertension (43) Precordial chest pain (44) Productive cough (45) Pulmonary air embolism (46) Pulmonary embolism (47) Pulmonary embolus (48) Pyelonephritis (49) Right arm weakness (50) Right upper extremity numbness (51) Sepsis (52) Shortness of breath (53) Shortness of breath (54) SIRS (systemic inflammatory response syndrome) (55) Skin breakdown (56) Spinal stenosis (57) Subtherapeutic international normalized ratio (INR) (58) Syncope (59) Tachycardia (60) TIA (transient ischemic attack) (61) Uncontrolled hypertension (62) Upper respiratory infection with cough and congestion (63) Urinary tract infection (64) Urinary tract infection (65) UTI (urinary tract infection) (66) UTI (urinary tract infection) (67) Vomiting (68) Weakness (69) Weakness Immunizations: Have You Had Influenza Vaccine: Unknown History of Tetanus Vaccine?: probably over 10 yrs ago History of Pneumococcal: apr 2004 History of Hepatitis B Vaccine: 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 Second-degree AV block resolved at higher heart rates and returned in the recovery phase * The left ventricular wall motion is normal at rest. * The left ventricular ejection fraction increases normally with stress. The left ventricular end-systolic cavity size reduces post-stress (normal response). The left ventricular wall motion with stress is normal. * There is no significant valvular disease. * There is no pericardial effusion (CHEST FOR PE) ANGIO WITH FINDINGS: CTA: Mild multichamber cardiac enlargement without pericardial effusion. Mild coronary arterial calcifications are noted. Thoracic aorta is normal in both course and caliber without aneurysm or dissection. The pulmonary arterial tree is opacified to level of the proximal subsegmental branches and demonstrates no focal filling defects to suggest pulmonary thromboembolic disease. CT CHEST: No dominant thyroid nodule or pathologic adenopathy identified. There is no pneumothorax or pleural effusion. Punctate calcification granuloma of the posterior basal segment left lower lobe. Mild dependent subsegmental bibasilar atelectasis. Mild bilateral bronchial wall thickening is redemonstrated. 2 mm solid nodule of the basal right lower lobe as seen on image 99 series 4. 6 mm solid nodule of the anterior segment right upper lobe appears unchanged with circumscribed margins. No acute process of the imaged upper abdomen. Minimal degree of superficial varices are noted along the anterior abdominal wall. Multilevel facet arthrosis. Bones of the chest appear to be intact. Multilevel endplate spurring. IMPRESSION: 1. No acute intrathoracic abnormality identified, specifically no acute aortic pathology or evidence of pulmonary thromboembolic disease. 2. Unchanged size and appearance of the 6 mm solid nodule of the anterior segment right upper lobe. 3. No pathologic adenopathy or focal airspace consolidation. Consultations: 1. Cardiology Medication Reconciliation New Medications: Furosemide (Furosemide) 80 Mg Tab 80 MG PO BID for 30 Days, #60 TABS Metoprolol Succinate (Metoprolol Succinate ER) 25 Mg Tabcr 12.5 MG PO DAILY for 30 Days, #15 TABS Changed Medications: Losartan Potassium (Cozaar) 50 Mg Tab 1 TAB PO DAILY for 30 Days, #30 TAB (Changed from: Losartan Potassium (Cozaar) 100 Mg Tab 100 Mg PO DAILY) Spironolactone (Aldactone) 50 Mg Tab 50 MG PO BID for 30 Days, #60 TAB (Changed from: Spironolactone (Aldactone) 25 Mg Tab 25 Mg PO BID) Continued Medications: Allopurinol (Allopurinol) 100 Mg Tab 100 MG PO DAILY Amantadine HCl (Amantadine HCl) 100 Mg Cap 100 MG PO BID Amlodipine (Norvasc) 10 Mg Tab 10 MG PO DAILY for 30 Days, #30 TAB (This prescription has been renewed) Apixaban (Eliquis) 2.5 Mg Tab 2.5 MG PO BID, TAB Ascorbic Acid (Vitamin C) 500 Mg Tab 500 MG PO QAM Carbidopa/Levodopa (Sinemet Cr 50MG/200MG) Tabcr 1 TAB PO BID Colchicine (Colchicine) 0.6 Mg Tab 0.6 MG PO DAILY PRN for Gout Flare Up, TAB Dutasteride (Avodart) 0.5 Mg Cap 0.5 MG PO DAILY, CAP Ferrous Sulfate (Iron) 325 Mg Tab 325 MG PO DAILY Fluoxetine (Prozac) 40 Mg Cap 40 MG PO DAILY, CAP Isosorbide Mononitrate (Isosorbide Mononitrate ER) 30 Mg Tabcr 30 MG PO QAM, #30 TAB (This prescription has been renewed) Mirabegron (Myrbetriq Er) 50 Mg Tab 50 MG PO DAILY, TAB Oxycodone/Acetaminophen 5MG/325MG (Percocet 5MG/325MG) Tab 1-2 TABLETS PO Q4H PRN for Pain, TAB Pregabalin (Lyrica) 300 Mg Cap 300 MG PO BID Ranitidine Hcl (Zantac) 150 Mg Tab 150 MG PO HS, TAB Simvastatin (Zocor) 20 Mg Tab 20 MG PO QPM, TAB Tamsulosin Hcl (Flomax) 0.4 Mg Cap 0.4 MG PO DAILY, CAP Zolpidem Tartrate (Ambien) 10 Mg Tab 10 MG PO HS PRN for Sleep, TAB [Unknown Insulin] () 60 UNITS SC QAM Discontinued Medications: [Unknown BP Med] () 1 TAB PO DAILY Discharge Exam Review of Systems: Constitutional: + weakness (generalized - initially after stress test but now resolved), No fever, No chills ENT: No nasal symptoms, No sore throat Respiratory: No cough Cardiovascular: No chest pain Abdomen: No pain, No nausea, No vomiting, No diarrhea, No constipation Musculoskeletal: + swelling (chronic b/l lower extremities), No calf pain Genitourinary - Male: No dysuria Hematologic / Lymphatic: No abnormal bleeding/bruising Integumentary: No rash Physical Exam: General Appearance: WD/WN, no apparent distress Eyes: sclerae normal ENT: hearing grossly normal Neck: supple, no JVD, trachea midline Respiratory/Chest: lungs clear, no respiratory distress, no accessory muscle use Cardiovascular: regular rate, rhythm Abdomen / GI: normal bowel sounds, non tender, soft Extremities: + swelling (b/l lower extremities) Neurologic/Psychiatric: alert, oriented x 3 Skin: normal color, warm/dry Hospital Course ED PROVIDER NOTE: The patient is a 62 year old male who presents to the Emergency Room with complaints of intermittent left sided chest pain starting last night. The pain worsens with twisting and movement, but not with deep breaths. He noticed that his hands became cold after lunch today. He notes that he has a clotting disorder and has had many blood clots in the past. His last clot was 6 months ago. He is currently on eliquis. He denies any fever or urinary symptoms. He reports coughing, lightheadedness, and pain/swelling in the legs which is all normal for him. He denies any fall or injury. He lives alone. He denies any missed medications. He has a history of diabetes. He denies any history of atrial fibrillation. HOSPITALIST ADMISSION DICTATION: PENDING AT TIME OF DISCHARGE HOSPITAL COURSE: Mr. Gonzalez was admitted for chest pain that is currently resolved. Troponins negative and no ischemic findings on EKG. He continues to be in a 2nd degree Mobitz I rhythm. Dobutamine stress test was negative. Patient had some increased weakness due atropine administration but this is completely resolved at this time and feels baseline. He did have some increased BP readings initially which resolved. Did initiate Toprol XL 12.5 mg daily that was discussed with Dr. Haider as he would not like this to go higher at least at this time to prevent worsening of 2nd degree AV block. Did obtain his outpatient med list as this was inaccurate in our system and new Rxs provided. This will need to have close F/U with family doctor to fully reconcile medications appropriately. Patient is CP free and resolved from the dobutamine stress and able to return home. Total Time Spent: Greater than 30 minutes This includes examination of the patient, discharge planning, medication reconciliation, and communication with other providers. Discharge Instructions Please refer to the electronic Patient Visit Report (Discharge Instructions) for additional information. Additional Copies To Reza Ocasio Jr, D.O.
[2017-10-14 17:36] VITALS: BP 105/67; PULSE 77; TEMP 36.3; O2SAT 94
[2017-10-14 19:47] VITALS: BP 127/77; PULSE 68; TEMP 36.7; O2SAT 95
[2017-10-14] MEDS: SIMVASTATIN 20 MG TAB PO SCH (19:53)
[2017-10-14] MEDS: RANITIDINE HCL 150 MG TAB PO SCH (19:53)
--- NOTE | 2017-10-14 20:56 | Progress Note ---
Subjective Date of Service: October 14, 2017. Subjective Pt evaluation today including: conversation w/ patient, conversation w/ family , physical exam, lab review, review of studies, conversation w/ industrial methods consultant, review of inpatient medication list Pain: no further chest pain PO Intake: adequate Voiding: no voiding problems no chest pain since admission patient underwent stress echocardiogram, was negative for ischemia discussed case with Dr. Haider with cardiology he recommended making sure the patient was on Toprol 12.5mg patient was very weak after the stress test, said that this was unusual for him , he was feeling fine prior discussed with Dr Haider, he said that the atropine they use to slow down the heart can cause Parkinson symptoms to be worse told patient reviewed labs, troponin negative CT chest negative for PE questions about accurate medication list, called Dr. Ocasio's office, they faxed up to date list Problem List Medical Problems: (1) Anticoagulated Status: Acute (2) Back pain Status: Acute (3) Soni infection Status: Acute (4) Cephalgia Status: Acute (5) Chest pain, pleuritic Status: Acute (6) Chronic chest pain Status: Acute (7) Complicated UTI (urinary tract infection) Status: Acute (8) Dyspnea on exertion Status: Acute (9) Elevated lactic acid level Status: Acute (10) Elevated troponin Status: Acute (11) Elevated troponin Status: Acute (12) Elevated troponin Status: Acute (13) Fall Status: Acute (14) Head trauma Status: Acute (15) Headache Status: Acute (16) Hemoptysis Status: Acute (17) History of pulmonary embolism Status: Acute (18) HTN (hypertension) Status: Acute (19) Hyperglycemia Status: Acute (20) Left sided chest pain Status: Acute (21) Left sided chest pain Status: Acute (22) Lower abdominal pain Status: Acute (23) Neck pain Status: Acute (24) Neurogenic bladder Status: Acute (25) Non-cardiac chest pain Status: Acute (26) Poorly-controlled hypertension Status: Acute (27) Pyelonephritis Status: Acute (28) Sepsis Status: Acute (29) Skin breakdown Status: Acute (30) Spinal stenosis Status: Acute (31) Subtherapeutic international normalized ratio (INR) Status: Acute (32) Tachycardia Status: Acute (33) TIA (transient ischemic attack) Status: Acute (34) Upper respiratory infection with cough and congestion Status: Acute (35) Urinary tract infection Status: Acute (36) UTI (urinary tract infection) Status: Acute (37) UTI (urinary tract infection) Status: Acute (38) Vomiting Status: Acute Review of Systems Constitutional: + weakness Neurologic: + weakness, + balance problems All Other Systems: Reviewed and Negative Medications Current Inpatient Medications Medications (Trade) Dose Ordered Sig/Apryl Route Start Time Stop Time Status Last Admin Dose Admin Ioversol (Optiray 320) 94 ml UD PRN IV 10/13/17 17:30 10/17/17 17:29 Acetaminophen (Tylenol Tab) 650 mg Q4H PRN PO 10/13/17 19:00 11/12/17 18:59 Al Hydrox/Mg Hydrox/Simethicone (Maalox Max Susp) 15 ml Q4H PRN PO 10/13/17 19:00 11/12/17 18:59 Magnesium Hydroxide (Milk Of Magnesia Susp) 30 ml Q12H PRN PO 10/13/17 19:00 11/12/17 18:59 Zolpidem Tartrate (Ambien Tab) 5 mg HSZ PRN PO 10/13/17 19:00 11/12/17 18:59 Ondansetron HCl (Zofran Inj) 4 mg Q6H PRN IV 10/13/17 19:00 11/12/17 18:59 Nitroglycerin (Nitrostat Tab) 0.4 mg UD PRN SL 10/13/17 19:00 11/12/17 18:59 Polyethylene (Miralax Powder Packet) 17 gm DAILY PRN PO 10/13/17 19:00 11/12/17 18:59 Allopurinol (Zyloprim Tab) 100 mg DAILY PO 10/14/17 09:00 11/13/17 08:59 10/14/17 08:40 100 MG Amantadine HCl (Symmetrel Cap) 100 mg BID PO 10/13/17 21:00 11/12/17 20:59 10/14/17 19:53 100 MG Amlodipine Besylate (Norvasc Tab) 10 mg DAILY PO 10/14/17 09:00 11/13/17 08:59 10/14/17 08:41 10 MG Apixaban (Eliquis Tab) 2.5 mg BID PO 10/13/17 21:00 11/12/17 20:59 10/14/17 19:54 2.5 MG Ascorbic Acid (Vitamin C Tab) 500 mg QAM PO 10/14/17 09:00 11/13/17 08:59 10/14/17 08:39 500 MG Carbidopa/Levodopa (Sinemet Cr 50/ 200MG Tab) 1 tab BID PO 10/13/17 21:00 11/12/17 20:59 10/14/17 19:52 1 TAB Colchicine (Colchicine Tab) 0.6 mg DAILY PRN PO 10/13/17 19:00 11/12/17 18:59 Fluoxetine HCl (Prozac Cap) 40 mg DAILY PO 10/14/17 09:00 11/13/17 08:59 10/14/17 08:40 40 MG Isosorbide Mononitrate (Imdur Ext Rel Tab) 30 mg QAM PO 10/14/17 09:00 11/13/17 08:59 10/14/17 08:39 30 MG Losartan Potassium (coZAAR TAB) 100 mg DAILY PO 10/14/17 09:00 11/13/17 08:59 10/14/17 08:40 100 MG Mirabegron (Myrbetriq Er) 50 mg DAILY PO 10/14/17 09:00 11/13/17 08:59 10/14/17 08:41 50 MG Oxycodone/ Acetaminophen (Percocet 5-325mg Tab) 1 tab Q4H PRN PO 10/13/17 19:00 10/27/17 18:59 10/14/17 09:07 1 TAB Pregabalin (Lyrica Cap) 300 mg BID PO 10/13/17 21:00 11/12/17 20:59 10/14/17 19:51 300 MG Ranitidine HCl (zANTac TAB) 150 mg HS PO 10/13/17 21:00 11/12/17 20:59 10/14/17 19:53 150 MG Simvastatin (Zocor Tab) 20 mg QPM PO 10/13/17 21:00 11/12/17 20:59 10/14/17 19:53 20 MG Spironolactone (Aldactone Tab) 25 mg BID17 PO 10/13/17 21:00 11/12/17 20:59 10/14/17 16:58 25 MG Tamsulosin HCl (Flomax Cap) 0.4 mg DAILY PO 10/14/17 09:00 11/13/17 08:59 10/14/17 08:39 0.4 MG Zolpidem Tartrate (Ambien Tab) 10 mg HS PRN PO 10/13/17 19:00 11/12/17 18:59 Metoprolol Tartrate (Lopressor Tab) 25 mg BID PO 10/13/17 21:00 11/12/17 20:59 10/14/17 19:52 25 MG Hydralazine HCl (HydrALAZINE INJ) 20 mg Q4 PRN IV. 10/13/17 19:00 11/12/17 18:59 Insulin Glargine (Lantus Solostar Pen) 60 units QAM SC 10/14/17 09:00 11/13/17 08:59 Insulin Aspart (novoLOG ASPART) SLIDING SCALE G... ACHS SC 10/13/17 21:00 11/12/17 20:59 10/14/17 17:31 1 UNITS Glucose (Glucose 40% Gel) 15-30 GRAMS 15 GRAMS... UD PRN PO 10/13/17 19:45 11/12/17 19:44 Glucose (Glucose Chew Tab) 4-8 Tablets 4 Tabl... UD PRN PO 10/13/17 19:45 11/12/17 19:44 Dextrose (Dextrose 50% 50ML Syringe) 25-50ML 25ML FOR ... UD PRN IV 10/13/17 19:45 11/12/17 19:44 Glucagon (Glucagon Inj) 1 mg UD PRN IM 10/13/17 19:45 11/12/17 19:44 Carbohydrates (Carbohydrates For Hypoglycemia) 15-30 GRAMS 15 grams if BSG 54-69... PRN PRN PO 10/13/17 19:45 11/12/17 19:44 Miscellaneous (Iv Fluids Completed) 1 ea PRN PRN N/A 10/13/17 20:00 10/13/18 19:59 Objective Vital Signs Date Time Temp Pulse Resp B/P (MAP) Pulse Ox O2 Delivery O2 Flow Rate FiO2 10/14/17 19:47 36.7 68 20 127/77 (94) 95 Room Air 10/14/17 17:36 36.3 77 20 94 Room Air 10/14/17 16:00 Room Air 10/14/17 15:32 36.3 77 20 105/67 (80) 94 10/14/17 12:00 Room Air 10/14/17 08:00 Room Air 10/14/17 07:40 36.4 67 16 145/82 (103) 95 10/14/17 04:24 36.4 71 16 135/86 (102) 96 Room Air 10/14/17 00:00 Room Air 10/13/17 23:53 36.4 67 18 187/94 (125) 92 Room Air 10/13/17 22:57 36.6 82 18 171/114 Room Air Physical Exam General Appearance: no apparent distress, + obese Eyes: normal inspection, EOMI, sclerae normal ENT: normal ENT inspection, hearing grossly normal, pharynx normal Neck: supple, no adenopathy, no JVD, trachea midline Respiratory/Chest: chest non-tender, lungs clear, normal breath sounds, no respiratory distress, no accessory muscle use Cardiovascular: regular rate, rhythm, no edema, no gallop, no JVD, no murmur Abdomen: normal bowel sounds, non tender, soft, no organomegaly Extremities: normal range of motion, non-tender, normal inspection, no pedal edema, no calf tenderness, pelvis stable Neurologic/Psychiatric: data collection associate II-XII nml as tested, alert, normal mood/affect, oriented x 3, + motor weakness Skin: normal color, warm/dry, no rash Laboratory Results Last 24 Hours Test 10/13/17 21:12 10/14/17 00:14 10/14/17 06:46 10/14/17 07:37 Bedside Glucose 102 mg/dl 105 mg/dl Troponin I < 0.015 ng/ml < 0.015 ng/ml Sodium Level 139 mmol/L Potassium Level 3.8 mmol/L Chloride Level 108 mmol/L Carbon Dioxide Level 27 mmol/L Anion Gap 5.0 mmol/L Blood Urea Nitrogen 15 mg/dl Creatinine 1.01 mg/dl Est Creatinine Clear Calc Drug Dose 97.2 ml/min Estimated GFR () 91.3 Estimated GFR (Non- 78.8 BUN/Creatinine Ratio 14.5 Random Glucose 111 mg/dl Calcium Level 8.3 mg/dl Phosphorus Level 3.2 mg/dl Magnesium Level 2.2 mg/dl Triglycerides Level 130 mg/dl Cholesterol Level 140 mg/dl HDL Cholesterol 36 mg/dl LDL Cholesterol, Calculated 78 mg/dl VLDL Cholesterol, Calculated 26 mg/dl Cholesterol/HDL Ratio 3.9 Test 10/14/17 12:09 10/14/17 13:36 10/14/17 17:04 Bedside Glucose 105 mg/dl 141 mg/dl Troponin I < 0.015 ng/ml Assessment and Plan 62 yo male with history of coronary disease, HTN, Parkinsonism, pulmonary embolism, presented with chest pain, atypical symptoms - Chest pain: troponin negative, no signs of ACS CTA chest negative for PE dobutamine stress echo today negative for ischemia - HTN: initially poorly controlled, but later in the day pressures were normal reviewed outpatient medication list patient will continue on Imdur 30mg daily, Toprol 12.5mg daily, Losartan 50mg , Lasix 80mg BID, Norvasc 10mg daily - h/o PE: no new PE on CTA chest continue on Eliquis 2.5mg BID as outpatient - Parkinson's disease: continue Sinemet Atropine to end dobutamine stress echo made him very weak should resolve tomorrow he would like PT/OT evaluations and possible rehab if not better reassess strength tomorrow, try to d/c to home if he is strong enough
[2017-10-14 23:58] VITALS: BP 108/72; PULSE 67; TEMP 36.4; O2SAT 94
[2017-10-15] MEDS: INSULIN ASPART 100 UNITS/ML 3 ML PEN SC SCH ×4 (06:30→21:18)
[2017-10-15 07:05] VITALS: BP 107/70; PULSE 83; TEMP 36.5; O2SAT 94
[2017-10-15] MEDS: PREGABALIN 150 MG CAP PO SCH ×2 (08:00→21:16)
[2017-10-15] MEDS: INSULIN GLARGINE SOLOSTAR 100 UNITS/ML 3 ML PEN SC SCH (08:00)
[2017-10-15] MEDS: APIXABAN 2.5 MG TAB PO SCH ×2 (08:07→21:09)
[2017-10-15] MEDS: ASCORBIC ACID 500 MG TAB PO SCH (08:07)
[2017-10-15] MEDS: AMANTADINE HCL 100 MG CAP PO SCH ×2 (08:07→21:09)
[2017-10-15] MEDS: MIRABEGRON ER 25 MG TAB PO SCH (08:07)
[2017-10-15] MEDS: ISOSORBIDE MONONITRATE 30 MG TABCR PO SCH (08:07)
[2017-10-15] MEDS: METOPROLOL TARTRATE 25 MG TAB PO SCH (08:08)
[2017-10-15] MEDS: ALLOPURINOL 100 MG TAB PO SCH (08:08)
[2017-10-15] MEDS: CARBIDOPA/LEVODOPA 50/200MG EXT REL TAB PO SCH ×2 (08:08→21:46)
[2017-10-15] MEDS: AMLODIPINE BESYLATE 5 MG TAB PO SCH (08:08)
[2017-10-15] MEDS: LOSARTAN POTASSIUM 50 MG TAB PO SCH (08:08)
[2017-10-15] MEDS: SPIRONOLACTONE 25 MG TAB PO SCH ×2 (08:09→18:24)
[2017-10-15] MEDS: FLUOXETINE HCL 20 MG CAP PO SCH (08:09)
[2017-10-15] MEDS: TAMSULOSIN HCL 0.4 MG CAP PO SCH (08:09)
[2017-10-15] MEDS ORDERED: SPIRONOLACTONE 25 MG TAB PO SCH (09:00)
--- NOTE | 2017-10-15 14:18 | Hospitalist Progress Note ---
Hospitalist Progress Note Date of Service October 15, 2017. Subjective Pt evaluation today including: conversation w/ patient, physical exam, review of inpatient medication list Patient seen and evaluated. Was initially ready for D/C but then felt that he was still too weak to go home and would like rehab stay. No further chest pain but reporting he noticed when he swallows it feels like food isn't all going down and has to clear his throat. Says it only happens with solid food and not drink. States this isn't chronic and only started yesterday. Also stating he is urinating a lot and doesn't like to be on more than one medication for his medical problems. Suspect he isn't taking medications at home as well as the pharmacy he gave states they haven't filled scripts from him in awhile. His med rec was inaccurate and orders changed to reflect the list provided by PCP Constitutional: + weakness (generalized), No fever, No chills ENT: + trouble swallowing (feels like food is sitting in back of throat), No nasal symptoms, No sore throat Respiratory: No cough, No shortness of breath Cardiovascular: No chest pain Abdomen: No pain, No nausea, No vomiting, No diarrhea, No constipation Musculoskeletal: + swelling (chronic b/l lower extremities), No calf pain Male : No dysuria Heme: No abnormal bleeding/bruising Medications Current Inpatient Medications Medications (Trade) Dose Ordered Sig/Apryl Route Start Time Stop Time Status Last Admin Dose Admin Ioversol (Optiray 320) 94 ml UD PRN IV 10/13/17 17:30 10/17/17 17:29 Acetaminophen (Tylenol Tab) 650 mg Q4H PRN PO 10/13/17 19:00 11/12/17 18:59 Al Hydrox/Mg Hydrox/Simethicone (Maalox Max Susp) 15 ml Q4H PRN PO 10/13/17 19:00 11/12/17 18:59 Magnesium Hydroxide (Milk Of Magnesia Susp) 30 ml Q12H PRN PO 10/13/17 19:00 11/12/17 18:59 Zolpidem Tartrate (Ambien Tab) 5 mg HSZ PRN PO 10/13/17 19:00 11/12/17 18:59 Ondansetron HCl (Zofran Inj) 4 mg Q6H PRN IV 10/13/17 19:00 11/12/17 18:59 Nitroglycerin (Nitrostat Tab) 0.4 mg UD PRN SL 10/13/17 19:00 11/12/17 18:59 Polyethylene (Miralax Powder Packet) 17 gm DAILY PRN PO 10/13/17 19:00 11/12/17 18:59 Allopurinol (Zyloprim Tab) 100 mg DAILY PO 10/14/17 09:00 11/13/17 08:59 10/15/17 08:08 100 MG Amantadine HCl (Symmetrel Cap) 100 mg BID PO 10/13/17 21:00 11/12/17 20:59 10/15/17 08:07 100 MG Amlodipine Besylate (Norvasc Tab) 10 mg DAILY PO 10/14/17 09:00 11/13/17 08:59 10/15/17 08:08 10 MG Apixaban (Eliquis Tab) 2.5 mg BID PO 10/13/17 21:00 11/12/17 20:59 10/15/17 08:07 2.5 MG Ascorbic Acid (Vitamin C Tab) 500 mg QAM PO 10/14/17 09:00 11/13/17 08:59 10/15/17 08:07 500 MG Carbidopa/Levodopa (Sinemet Cr 50/ 200MG Tab) 1 tab BID PO 10/13/17 21:00 11/12/17 20:59 10/15/17 08:08 1 TAB Colchicine (Colchicine Tab) 0.6 mg DAILY PRN PO 10/13/17 19:00 11/12/17 18:59 Fluoxetine HCl (Prozac Cap) 40 mg DAILY PO 10/14/17 09:00 11/13/17 08:59 10/15/17 08:09 40 MG Isosorbide Mononitrate (Imdur Ext Rel Tab) 30 mg QAM PO 10/14/17 09:00 11/13/17 08:59 10/15/17 08:07 30 MG Mirabegron (Myrbetriq Er) 50 mg DAILY PO 10/14/17 09:00 11/13/17 08:59 10/15/17 08:07 50 MG Oxycodone/ Acetaminophen (Percocet 5-325mg Tab) 1 tab Q4H PRN PO 10/13/17 19:00 10/27/17 18:59 10/14/17 09:07 1 TAB Pregabalin (Lyrica Cap) 300 mg BID PO 10/13/17 21:00 11/12/17 20:59 10/15/17 08:00 300 MG Ranitidine HCl (zANTac TAB) 150 mg HS PO 10/13/17 21:00 11/12/17 20:59 10/14/17 19:53 150 MG Simvastatin (Zocor Tab) 20 mg QPM PO 10/13/17 21:00 11/12/17 20:59 10/14/17 19:53 20 MG Tamsulosin HCl (Flomax Cap) 0.4 mg DAILY PO 10/14/17 09:00 11/13/17 08:59 10/15/17 08:09 0.4 MG Zolpidem Tartrate (Ambien Tab) 10 mg HS PRN PO 10/13/17 19:00 11/12/17 18:59 Hydralazine HCl (HydrALAZINE INJ) 20 mg Q4 PRN IV. 10/13/17 19:00 11/12/17 18:59 Insulin Glargine (Lantus Solostar Pen) 60 units QAM SC 10/14/17 09:00 11/13/17 08:59 Insulin Aspart (novoLOG ASPART) SLIDING SCALE G... ACHS SC 10/13/17 21:00 11/12/17 20:59 10/15/17 13:59 4 UNITS Glucose (Glucose 40% Gel) 15-30 GRAMS 15 GRAMS... UD PRN PO 10/13/17 19:45 11/12/17 19:44 Glucose (Glucose Chew Tab) 4-8 Tablets 4 Tabl... UD PRN PO 10/13/17 19:45 11/12/17 19:44 Dextrose (Dextrose 50% 50ML Syringe) 25-50ML 25ML FOR ... UD PRN IV 10/13/17 19:45 11/12/17 19:44 Glucagon (Glucagon Inj) 1 mg UD PRN IM 10/13/17 19:45 11/12/17 19:44 Carbohydrates (Carbohydrates For Hypoglycemia) 15-30 GRAMS 15 grams if BSG 54-69... PRN PRN PO 10/13/17 19:45 11/12/17 19:44 Miscellaneous (Iv Fluids Completed) 1 ea PRN PRN N/A 10/13/17 20:00 10/13/18 19:59 Losartan Potassium (coZAAR TAB) 50 mg DAILY PO 10/16/17 08:00 11/13/17 08:59 Metoprolol Succinate (Toprol Xl Tab) 12.5 mg QAM PO 10/16/17 08:00 11/15/17 07:59 Spironolactone (Aldactone Tab) 50 mg BID17 PO 10/15/17 17:00 11/12/17 20:59 Furosemide (Lasix Tab) 80 mg BID17 PO 10/16/17 09:00 11/15/17 08:59 Objective Vital Signs Date Time Temp Pulse Resp B/P (MAP) Pulse Ox O2 Delivery O2 Flow Rate FiO2 10/15/17 08:00 Room Air 10/15/17 07:05 36.5 83 18 107/70 (82) 94 10/15/17 00:00 Room Air 10/14/17 23:58 36.4 67 18 108/72 (84) 94 Room Air 10/14/17 20:00 Room Air 10/14/17 19:47 36.7 68 20 127/77 (94) 95 Room Air 10/14/17 17:36 36.3 77 20 94 Room Air 10/14/17 16:00 Room Air 10/14/17 15:32 36.3 77 20 105/67 (80) 94 Physical Exam General Appearance: no apparent distress Eyes: sclerae normal ENT: hearing grossly normal Neck: supple, no JVD, trachea midline Respiratory/Chest: lungs clear, normal breath sounds, no respiratory distress, no accessory muscle use Cardiovascular: regular rate, rhythm, no gallop, no murmur Abdomen: normal bowel sounds, non tender, soft Extremities: + swelling (b/l lower extremities with chronic venous stasis changes) Neurologic/Psychiatric: alert Skin: normal color, warm/dry Laboratory Results Last 24 Hours Test 10/14/17 17:04 10/14/17 20:56 Bedside Glucose 141 mg/dl 159 mg/dl Assessment and Plan 62 yo male with history of coronary disease, HTN, Parkinsonism, pulmonary embolism, presented with chest pain, atypical symptoms - Chest pain: troponin negative, no signs of ACS - RESOLVED CTA chest negative for PE dobutamine stress echo today negative for ischemia No further symptoms of CP - HTN: initially poorly controlled, but later in the day pressures were normal - STABLE reviewed outpatient medication list patient will continue on Imdur 30mg daily, Toprol 12.5mg daily, Losartan 50mg , Lasix 80mg BID, Norvasc 10mg daily, and Spironolactone 50 mg BID - h/o PE: no new PE on CTA chest continue on Eliquis 2.5mg BID as outpatient - Parkinson's disease: continue Sinemet Atropine to end dobutamine stress echo made him very weak but was feeling better and due for discharge but continues to feel weak Disposition: - PT/OT evaluations pending; patient would like to go to rehab prior to returning home and would be medically suitable for such - hopeful for SNF tomorrow pending auth Continued [facility] stay due to: ambulation difficulties Discharge planning: shelter facility
[2017-10-15] MEDS: OXYCODONE/ACETAMINOPHEN 5-325 TAB PO PRN (14:58)
[2017-10-15 15:16] VITALS: BP 90/56; PULSE 78; TEMP 36.4; O2SAT 95
[2017-10-15 15:25] VITALS: BP 95/59; PULSE 78
[2017-10-15] MEDS: RANITIDINE HCL 150 MG TAB PO SCH (21:09)
[2017-10-15] MEDS: SIMVASTATIN 20 MG TAB PO SCH (21:46)
[2017-10-15 23:06] VITALS: BP 104/59; PULSE 73; TEMP 36.4; O2SAT 95
[2017-10-16 07:35] VITALS: BP 109/65; PULSE 67; TEMP 36.2; O2SAT 96
[2017-10-16 08:00] VITALS: O2SAT 96
[2017-10-16] MEDS ORDERED: METOPROLOL SUCC 25MG EXT REL TAB PO SCH (08:00)
[2017-10-16] MEDS ORDERED: LOSARTAN POTASSIUM 50 MG TAB PO SCH (08:00)
[2017-10-16] MEDS: PREGABALIN 150 MG CAP PO SCH (08:15)
[2017-10-16] MEDS: CARBIDOPA/LEVODOPA 50/200MG EXT REL TAB PO SCH (08:16)
[2017-10-16] MEDS: TAMSULOSIN HCL 0.4 MG CAP PO SCH (08:16)
[2017-10-16] MEDS: FLUOXETINE HCL 20 MG CAP PO SCH (08:16)
[2017-10-16] MEDS: MIRABEGRON ER 25 MG TAB PO SCH (08:16)
[2017-10-16] MEDS: APIXABAN 2.5 MG TAB PO SCH (08:17)
[2017-10-16] MEDS: AMANTADINE HCL 100 MG CAP PO SCH (08:17)
[2017-10-16] MEDS: AMLODIPINE BESYLATE 5 MG TAB PO SCH (08:19)
[2017-10-16] MEDS: ASCORBIC ACID 500 MG TAB PO SCH (08:19)
[2017-10-16] MEDS: INSULIN ASPART 100 UNITS/ML 3 ML PEN SC SCH ×3 (08:28→17:58)
[2017-10-16] MEDS: INSULIN GLARGINE SOLOSTAR 100 UNITS/ML 3 ML PEN SC SCH (08:29)
[2017-10-16] MEDS: ISOSORBIDE MONONITRATE 30 MG TABCR PO SCH (10:09)
[2017-10-16] MEDS: ALLOPURINOL 100 MG TAB PO SCH (10:09)
[2017-10-16] MEDS: SPIRONOLACTONE 25 MG TAB PO SCH ×2 (10:10→17:08)
[2017-10-16] MEDS: FUROSEMIDE 80 MG TAB PO SCH ×2 (10:10→17:08)
[2017-10-16] MEDS ORDERED: NRV5 PO (13:41)
[2017-10-16 13:48] VITALS: BP 109/65; PULSE 67; TEMP 36.2; O2SAT 96
[2017-10-16 14:53] VITALS: BP 153/82; PULSE 69; TEMP 37.1; O2SAT 92
[2017-10-17] MEDS ORDERED: AMLODIPINE BESYLATE 5 MG TAB PO SCH (08:00)
--- NOTE | 2017-10-17 16:44 | Discharge Summary ---
Discharge Summary Date of Service October 16, 2017. 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 Procedures: Dobutamine stress echo - normal Consultations: Cardiology Medication Reconciliation New Medications: Furosemide (Furosemide) 80 Mg Tab 80 MG PO BID for 30 Days, #60 TABS Metoprolol Succinate (Metoprolol Succinate ER) 25 Mg Tabcr 12.5 MG PO DAILY for 30 Days, #15 TABS Amlodipine Besylate (Amlodipine Besylate) 5 Mg Tab 5 MG PO DAILY, #30 TAB 3 Refills Changed Medications: Losartan Potassium (Cozaar) 50 Mg Tab 1 TAB PO DAILY for 30 Days, #30 TAB (Changed from: Losartan Potassium (Cozaar) 100 Mg Tab 100 Mg PO DAILY) Spironolactone (Aldactone) 50 Mg Tab 50 MG PO BID for 30 Days, #60 TAB (Changed from: Spironolactone (Aldactone) 25 Mg Tab 25 Mg PO BID) Continued Medications: Allopurinol (Allopurinol) 100 Mg Tab 100 MG PO DAILY Amantadine HCl (Amantadine HCl) 100 Mg Cap 100 MG PO BID Apixaban (Eliquis) 2.5 Mg Tab 2.5 MG PO BID, TAB Ascorbic Acid (Vitamin C) 500 Mg Tab 500 MG PO QAM Carbidopa/Levodopa (Sinemet Cr 50MG/200MG) Tabcr 1 TAB PO BID Colchicine (Colchicine) 0.6 Mg Tab 0.6 MG PO DAILY PRN for Gout Flare Up, TAB Dutasteride (Avodart) 0.5 Mg Cap 0.5 MG PO DAILY, CAP Ferrous Sulfate (Iron) 325 Mg Tab 325 MG PO DAILY Fluoxetine (Prozac) 40 Mg Cap 40 MG PO DAILY, CAP Isosorbide Mononitrate (Isosorbide Mononitrate ER) 30 Mg Tabcr 30 MG PO QAM, #30 TAB (This prescription has been renewed) Mirabegron (Myrbetriq Er) 50 Mg Tab 50 MG PO DAILY, TAB Oxycodone/Acetaminophen 5MG/325MG (Percocet 5MG/325MG) Tab 1-2 TABLETS PO Q4H PRN for Pain, TAB Pregabalin (Lyrica) 300 Mg Cap 300 MG PO BID Ranitidine Hcl (Zantac) 150 Mg Tab 150 MG PO HS, TAB Simvastatin (Zocor) 20 Mg Tab 20 MG PO QPM, TAB Tamsulosin Hcl (Flomax) 0.4 Mg Cap 0.4 MG PO DAILY, CAP Zolpidem Tartrate (Ambien) 10 Mg Tab 10 MG PO HS PRN for Sleep, TAB [Unknown Insulin] () 60 UNITS SC QAM Discontinued Medications: [Unknown BP Med] () 1 TAB PO DAILY Discharge Exam Patient feeling well, no chest pain or pressure, eating well, no dyspnea. Slightly concerned because he had not had a BM in two days, but he says that being in the hospital typically makes him irregular. Ready to go to [facility]. Review of Systems: Constitutional: No fever, No chills, No sweats, No weight loss, No weakness , No fatigue, No problem reported Eyes: No worsening of vision, No eye pain, No redness, No discharge, No diplopia, No problem reported ENT: No hearing loss, No unusual epistaxis, No nasal symptoms, No sore throat, No tinnitus, No dental problems, No trouble swallowing, No problem reported Respiratory: No cough, No sputum, No wheezing, No shortness of breath, No dyspnea on exertion, No dyspnea at rest, No hemoptysis, No problem reported Cardiovascular: No chest pain, No orthopnea, No PND, No edema, No claudication, No palpitations, No problem reported Abdomen: + constipation, No pain, No nausea, No vomiting, No diarrhea, No GI bleeding, No problem reported Musculoskeletal: No joint pain, No muscle pain, No swelling, No calf pain, No problem reported Genitourinary - Male: No hematuria, No dysuria, No urinary frequency, No urinary urgency Neurologic: No memory loss, No paralysis, No weakness, No numbness/tingling , No vertigo, No balance problems, No problem reported Psychiatric: No depression symptoms, No anhedonism, No anxiety, No insomnia , No substance abuse, No problem reported Endocrine: No fatigue, No excessive thirst, No excessive urination, No problem reported Hematologic / Lymphatic: No abnormal bleeding/bruising, No clotting problems , No swollen lymph nodes, No night sweats, No problem reported Integumentary: No rash, No itch, No new/changing skin lesions, No color change, No bleeding, No problem reported Physical Exam: General Appearance: no apparent distress, + obese Eyes: normal inspection, EOMI, sclerae normal ENT: normal ENT inspection, hearing grossly normal, pharynx normal Neck: supple, no adenopathy, no JVD, trachea midline Respiratory/Chest: chest non-tender, lungs clear, normal breath sounds, no respiratory distress, no accessory muscle use Cardiovascular: regular rate, rhythm, no edema, no gallop, no JVD, no murmur , normal peripheral pulses Abdomen / GI: normal bowel sounds, non tender, soft, no organomegaly Extremities: normal inspection, no calf tenderness, normal capillary refill , no pedal edema, normal range of motion, pelvis stable Neurologic/Psychiatric: automatic cigar wrapper tender II-XII nml as tested, normal reflexes, oriented x 3, + abnormal gait, + motor weakness, + depressed affect, + pertinent finding Skin: normal color, warm/dry, no rash Hospital Course 62 yo male with history of coronary disease, HTN, Parkinsonism, pulmonary embolism, presented with chest pain, atypical symptoms - Chest pain: troponin negative, no signs of ACS CTA chest negative for PE dobutamine stress echo / negative for ischemia - HTN: initially poorly controlled, but later in the day pressures were normal reviewed outpatient medication list patient supposed to be on Imdur 30mg daily, Toprol 12.5mg daily, Losartan 50mg, Lasix 80mg BID, Norvasc 10mg daily blood pressures were low normal with systolic pressures in the 100's on the above regimen, concerned that he might not be taking these, he cannot tell me with 100% certainty what he is taking will decrease his Norvasc to 5mg daily due to the low normal pressures, keep other medications the same of note, per cardiology, his Toprol should not be increased beyond 12.5mg - h/o PE: no new PE on CTA chest continue on Eliquis 2.5mg BID - Parkinson's disease: continue Sinemet Atropine to end dobutamine stress echo made him very weak PT/OT evaluations recommend rehab to [facility] today Total Time Spent: Greater than 30 minutes This includes examination of the patient, discharge planning, medication reconciliation, and communication with other providers. Discharge Instructions Please refer to the electronic Patient Visit Report (Discharge Instructions) for additional information. Follow-Up Dr. Ocasio on 10/22 [facility] cardiology as previously scheduled Additional Copies To Doris Dixon; Frank Haider M.D.; Reza Ocasio Jr, D.O.
== END 2017-10-16 19:24 ==
LOC: EDBD 15:03 → C.EDA 15:20 → C.MED 18:53 → ENRESERV 19:53 → C.MS4W 10-14 19:33 → C.4E 10-15 16:26
PROVIDERS: ADMIT Hospitalist; ATTEND Internal Medicine
DX: R07.9 Chest pain, unspecified (principal); E10.9 Type 1 diabetes mellitus without complications; K21.9 Gastro-esophageal reflux disease without esophagitis; G20 Parkinson's disease; I10 Essential (primary) hypertension; E66.01 Morbid (severe) obesity due to excess calories; M10.9 Gout, unspecified; Z88.0 Allergy status to penicillin; Z88.1 Allergy status to other antibiotic agents; Z88.2 Allergy status to sulfonamides; Z87.440 Personal history of urinary (tract) infections; Z86.711 Personal history of pulmonary embolism; Z86.718 Personal history of other venous thrombosis and embolism; Z82.49 Family history of ischemic heart disease and other diseases of the circulatory system; Z79.01 Long term (current) use of anticoagulants; Z83.3 Family history of diabetes mellitus; Z86.73 Personal history of transient ischemic attack (TIA), and cerebral infarction without residual deficits

== ENCOUNTER → 2017-10-29 | Outpatient (CLI) | payer OTHER ==
[~2017-10-29] MED LIST changes: +APIX1TAB PO; +ASCO500T3 PO; +COLC0.6T54 PO; +DUTA0.5C PO; +FERR1TAB23 PO; +FLUO40CA8 PO; -INSDGI SC; +ISOS-11 PO; +LSX80 PO; -LVNIS150 INJ; +MIRA1TAB3 PO; +NRV5 PO; -NVLGIPEN SC; +OXYC-57 PO; -PRT40 PO; +RANI150T3 PO; +SIMV20TA2 PO; +SPIR50TA2 PO; +TAMS0.4C38 PO; +TPRSR25 PO; -WARF5TAB90 PO; -ZNT150 PO; +ZOLP10TA PO; +[UNRECOGNIZED DRUG - REMARK] SC
[2017-10-29 08:25] LABS: HEMATOCRIT 38.3 % (42-52); MEAN CORPUSCULAR HEMOGLOBIN 29.5 pg (25-34); MEAN CORPUSCULAR HGB CONC 33.9 g/dl (32-36); MEAN PLATELET VOLUME 10.3 fL (7.4-10.4); PLATELET COUNT 147 K/uL (130-400); RED CELL DISTRIBUTION WIDTH CV 13.8 % (11.5-14.5); RED CELL DISTRIBUTION WIDTH SD 43.9 fL (36.4-46.3); WHITE BLOOD COUNT 6.76 K/uL (4.8-10.8)
[2017-10-29 08:55] LABS: ALBUMIN 3.3 gm/dl (3.4-5.0); ALKALINE PHOSPHATASE 104 U/L (45-117); ALT/SGPT 17 U/L (12-78); AST/SGOT 15 U/L (15-37); BLOOD UREA NITROGEN 123 mg/dl (7-18); CALCIUM 9.2 mg/dl (8.5-10.1); CARBON DIOXIDE 26 mmol/L (21-32); CREATININE 4.44 mg/dl (0.60-1.40); GLUCOSE 99 mg/dl (70-99); SODIUM 139 mmol/L (136-145); TOTAL PROTEIN 7.7 gm/dl (6.4-8.2)
== END ==
LOC: C.LABCC 07:36
PROVIDERS: ATTEND Internal Medicine
DX: R41.82 Altered mental status, unspecified (principal); R53.1 Weakness

== ENCOUNTER 2017-10-30 11:14 | Inpatient (IN) | payer OTHER ==
[~2017-10-30] VITALS: Ht 175.3 cm; Wt 118.7 kg
--- NOTE | 2017-10-30 11:37 | EMERGENCY ROOM VISIT NOTE ---
History Report prepared by Tyra: Benjamin Mireles Under the Supervision of: Dr. Evan Torres D.O. First contact with patient: 11:16 Chief Complaint: ABNORMAL LABS Stated Complaint: ABNORMAL LABS History of Present Illness The patient is a 62 year old male who presents to the Emergency Room with concerns over abnormal laboratory studies that were found today at the [facility]. Dr. Blackburn referred the patient to the ED for concern over his kidney function. The patient was just discharged from the hospital two weeks ago. He is complaining of "soreness" in his lower back. The patient denies any other chest pain, shortness of breath, or abdominal pain. Source of History: patient Onset: Today Position: back (lower) Quality: other (Soreness) Timing: other (Abnormal kidney function found today) Associated Symptoms: No chest pain, No SOB Review of Systems See HPI for pertinent positives & negatives. A total of 10 systems reviewed and were otherwise negative. Past Medical & Surgical Medical Problems: (1) Catheter-associated urinary tract infection (2) Chest pain (3) Diabetes mellitus (4) Dyspnea (5) Elevated serum creatinine (6) Gastroesophageal reflux disease (7) Gout (8) Parkinson's disease (9) Pulmonary embolism (10) Right upper extremity numbness (11) Syncope (12) Uncontrolled hypertension (13) Weakness Family History Cancer Diabetes mellitus FH: heart disease Hypertension Social History Smoking Status: Unknown if Ever Smoked Alcohol Use: none Drug Use: none Marital Status: Housing Status: lives alone Occupation Status: disabled Current/Historical Medications Scheduled Allopurinol (Allopurinol), 100 MG PO DAILY Amantadine HCl (Amantadine HCl), 100 MG PO BID Amlodipine Besylate (Amlodipine Besylate), 5 MG PO DAILY Apixaban (Eliquis), 2.5 MG PO BID Ascorbic Acid (Vitamin C), 500 MG PO QAM Carbidopa/Levodopa (Sinemet Cr 50MG/200MG), 1 TAB PO BID Dutasteride (Avodart), 0.5 MG PO DAILY Ferrous Sulfate (Iron), 325 MG PO DAILY Fluoxetine (Prozac), 40 MG PO DAILY Furosemide (Furosemide), 80 MG PO BID Isosorbide Mononitrate (Isosorbide Mononitrate ER), 30 MG PO QAM Losartan Potassium (Cozaar), 1 TAB PO DAILY Metoprolol Succinate (Metoprolol Succinate ER), 12.5 MG PO DAILY Mirabegron (Myrbetriq Er), 50 MG PO DAILY Pregabalin (Lyrica), 300 MG PO BID Ranitidine Hcl (Zantac), 150 MG PO HS Simvastatin (Zocor), 20 MG PO QPM Spironolactone (Aldactone), 50 MG PO BID Tamsulosin Hcl (Flomax), 0.4 MG PO DAILY [Unknown Insulin], 60 UNITS SC QAM Scheduled PRN Colchicine (Colchicine), 0.6 MG PO DAILY PRN for Gout Flare Up Oxycodone/Acetaminophen 5MG/325MG (Percocet 5MG/325MG), 1-2 TABLETS PO Q4H PRN for Pain Zolpidem Tartrate (Ambien), 10 MG PO HS PRN for Sleep Allergies Coded Allergies: Penicillins (Verified Allergy, Severe, 10/30/17) SEVERE RXN PER PT Cephalosporins (Verified Allergy, Unknown, 10/30/17) Sulfamethoxazole w/Trimethoprim (Verified Allergy, Unknown, ., 10/30/17) TAKES LASIX AT HOME Lisinopril (Verified Adverse Reaction, Intermediate, Cough, 10/30/17) Physical Exam Vital Signs Date Time Temp Pulse Resp B/P (MAP) Pulse Ox O2 Delivery O2 Flow Rate FiO2 10/30/17 13:11 76 120/68 99 Room Air 10/30/17 12:20 78 122/65 99 Room Air 10/30/17 12:13 80 10/30/17 11:25 36.4 83 126/67 100 Room Air 10/30/17 11:25 99 Room Air Physical Exam GENERAL: Patient is awake, alert, and in no acute distress. Patient is resting comfortably and showing no signs of anxiety EYES: The conjunctivae are clear. The pupils are round and reactive. EARS, NOSE, MOUTH AND THROAT: The nose is without any evidence of any deformity. Mucous membranes are DRY tongue is midline NECK: The neck is nontender and supple. RESPIRATORY: Diminished at the bases. Rales at both bases. Normal respiratory effort is noted there is no evidence of wheezing rhonchi CARDIOVASCULAR: Tachycardic rate and regular rhythm noted there no murmurs rubs or gallops normal S1 normal S2 GASTROINTESTINAL: The abdomen is moderately distended but soft. There is significant bladder distention. Bowel sounds are present in all quadrants. Abdomen is nontender PELVIS: The Pelvis is stable. No tenderness to palpation is noted. BACK: No midline tenderness or or step-off noted range of motion in flexion extension as well as rotation no signs of muscle spasm noted MUSCULOSKELETAL/EXTREMITIES: There is no evidence of gross deformity full range of motion is noted in the hips and shoulders SKIN: There is no obvious evidence of any rash. There are no petechiae, pallor or cyanosis noted. NEUROLOGIC: Patient is awake alert and oriented x3 Medical Decision & Procedures ER Provider Diagnostic Interpretation: Radiology results as stated below per my review and radiologist interpretation: CHEST ONE VIEW PORTABLE CLINICAL HISTORY: 62 years-old Male presenting with EVALUATE ALTERED MENTAL STATUS/WEAKNESS. TECHNIQUE: Portable upright AP view of the chest was obtained. COMPARISON: 10/13/2017. FINDINGS: Atherosclerosis of aortic arch. Cardiac silhouette mildly enlarged. Pulmonary vascular prominence. Mildly low lung volumes. No focal opacity. No large effusion or pneumothorax. Degenerative changes of the thoracic spine. Upper abdomen normal. IMPRESSION: 1. Mild cardiomegaly with possible volume overload. 2. Mildly low lung volumes with hypoventilatory changes. Electronically signed by: Mitesh Shook M.D. 10/30/2017 12:11 PM Dictated Date/Time: 10/30/2017 12:10 PM Laboratory Results 10/30/17 11:50 Red Blood Count 4.60, Mean Corpuscular Volume 87.0, Mean Corpuscular Hemoglobin 29.1, Mean Corpuscular Hemoglobin Concent 33.5, Mean Platelet Volume 10.3, Neutrophils (%) (Auto) 77.8, Lymphocytes (%) (Auto) 14.2, Monocytes (%) (Auto) 6.9, Eosinophils (%) (Auto) 0.8, Basophils (%) (Auto) 0.1, Neutrophils # (Auto) 7.61, Lymphocytes # (Auto) 1.39, Monocytes # (Auto) 0.67, Eosinophils # (Auto) 0.08, Basophils # (Auto) 0.01 10/30/17 11:50 Test 10/30/17 11:50 White Blood Count 9.78 K/uL (4.8-10.8) Red Blood Count 4.60 M/uL (4.7-6.1) Hemoglobin 13.4 g/dL (14.0-18.0) Hematocrit 40.0 % (42-52) Mean Corpuscular Volume 87.0 fL (80-100) Mean Corpuscular Hemoglobin 29.1 pg (25-34) Mean Corpuscular Hemoglobin Concent 33.5 g/dl (32-36) Platelet Count 153 K/uL (130-400) Mean Platelet Volume 10.3 fL (7.4-10.4) Neutrophils (%) (Auto) 77.8 % Lymphocytes (%) (Auto) 14.2 % Monocytes (%) (Auto) 6.9 % Eosinophils (%) (Auto) 0.8 % Basophils (%) (Auto) 0.1 % Neutrophils # (Auto) 7.61 K/uL (1.4-6.5) Lymphocytes # (Auto) 1.39 K/uL (1.2-3.4) Monocytes # (Auto) 0.67 K/uL (0.11-0.59) Eosinophils # (Auto) 0.08 K/uL (0-0.5) Basophils # (Auto) 0.01 K/uL (0-0.2) RDW Standard Deviation 43.9 fL (36.4-46.3) RDW Coefficient of Variation 13.9 % (11.5-14.5) Immature Granulocyte % (Auto) 0.2 % Immature Granulocyte # (Auto) 0.02 K/uL (0.00-0.02) Prothrombin Time 10.9 SECONDS (9.0-12.0) Prothromb Time International Ratio 1.0 (0.9-1.1) Activated Partial Thromboplast Time 29.3 SECONDS (21.0-31.0) Partial Thromboplastin Ratio 1.1 Urine Color YELLOW Urine Appearance CLEAR (CLEAR) Urine pH 5.0 (4.5-7.5) Urine Specific [place] 1.015 (1.000-1.030) Urine Protein NEG (NEG) Urine Glucose (UA) NEG (NEG) Urine Ketones NEG (NEG) Urine Occult Blood 2+ (NEG) Urine Nitrite NEG (NEG) Urine Bilirubin NEG (NEG) Urine Urobilinogen NEG (NEG) Urine Leukocyte Esterase NEG (NEG) Urine WBC (Auto) 0 /hpf (0-5) Urine RBC (Auto) 0-4 /hpf (0-4) Urine Hyaline Casts (Auto) 0 /lpf (0-5) Urine Epithelial Cells (Auto) 0-5 /lpf (0-5) Urine Bacteria (Auto) NEG (NEG) Urine Random Sodium 84 mEq/L Anion Gap 8.0 mmol/L (3-11) Est Creatinine Clear Calc Drug Dose 21.9 ml/min Estimated GFR () 15.2 Estimated GFR (Non- 13.1 BUN/Creatinine Ratio 28.7 (10-20) Calcium Level 9.4 mg/dl (8.5-10.1) Phosphorus Level 6.0 mg/dl (2.5-4.9) Magnesium Level 3.1 mg/dl (1.8-2.4) Total Bilirubin 0.4 mg/dl (0.2-1) Direct Bilirubin 0.2 mg/dl (0-0.2) Aspartate Amino Transf (AST/SGOT) 24 U/L (15-37) Alanine Aminotransferase (ALT/SGPT) 14 U/L (12-78) Alkaline Phosphatase 114 U/L (45-117) Total Creatine Kinase 63 U/L (39-308) Creatine Kinase MB 1.3 ng/ml (0.5-3.6) Creatine Kinase MB Ratio 2.1 (0-3.0) Troponin I < 0.015 ng/ml (0-0.045) Pro-B-Type Natriuretic Peptide 148 pg/ml (0-900) Total Protein 8.1 gm/dl (6.4-8.2) Albumin 3.6 gm/dl (3.4-5.0) Lipase 447 U/L (73-393) Thyroid Stimulating Hormone (TSH) 2.590 uIu/ml (0.300-4.500) Laboratory results per my review. Medications Administered Medications (Trade) Dose Ordered Sig/Apryl Route Start Time Stop Time Status Last Admin Dose Admin Sodium Chloride 1,000 ml @ 999 mls/hr Q1H1M STAT IV 10/30/17 11:39 10/30/17 12:39 DC 10/30/17 11:58 999 MLS/HR ECG Per My Interpretation Indication: other (Abnormal Labs) Rate (beats per minute): 79 Rhythm: sinus rhythm Findings: 1st degree AV block, Q waves (Inferior) Comparison ECG Date: 10/15/2017 Change: no significant change ED Course 1127: The patient was evaluated in room C10. A complete history and physical examination were performed. 1139: Ordered Sodium Chloride 1000 mL @ 999 mL/hr IV. 1304: I discussed the case with Dr. [facility]. She will evaluate the patient for further treatment. Medical Decision Differential diagnosis: Etiologies such as metabolic, infection, hypo/hyperglycemia, electrolyte abnormalities, cardiac sources, intracerebral event, toxicologic, neurologic, as well as others were entertained. Nursing notes reviewed. The patient is a 62-year-old male who presented to the emergency department for an evaluation of abnormal labs. The patient was found to have an elevated BUN and creatinine. On physical exam he appeared to have signs of urinary retention with a distended bladder. A Wills catheter was placed. The patient had resolution of his abdominal tenderness. I do feel his overall condition likely represents obstructive uropathy however the patient was recently started on a very high dose of Lasix. This could have some part in the patient's acute renal failure. I discussed patient's laboratory and radiographic studies with him. He was treated with IV fluids in the emergency department. After Wills catheter placement he was feeling much better. I discussed his case with the on -call [facility] hospitalist group. They have agreed to evaluate the patient in the emergency department for further management and disposition. Medication Reconcilliation Current Medication List: was personally reviewed by me Blood Pressure Screening Patient's blood pressure: Normal blood pressure Consults Time Called: 1300 Consulting Physician: Dr. Pam Arauz. Returned Call: 1304 I discussed the case with Dr. Pam Arauz. She will evaluate the patient for further treatment. Impression Primary Impression: Renal failure Additional Impressions: Obstructive uropathy Urinary retention Hyperkalemia Scribe Attestation The scribe's documentation has been prepared under my direction and personally reviewed by me in its entirety. I confirm that the note above accurately reflects all work, treatment, procedures, and medical decision making performed by me. Departure Information Dispostion Being Evaluated By Hospitalist Referrals [facility] (PCP) Patient Instructions My [facility] Problem Qualifiers Primary Impression: Renal failure Renal failure chronicity: unspecified chronicity Qualified Codes: N19 - Unspecified kidney failure
[2017-10-30] MEDS ORDERED: SODIUM CHLORIDE 0.9% 1000ML 1,000 ML IV STA (11:39)
[2017-10-30 12:03] LABS: BASO % 0.1 %; BASO ABS # 0.01 K/uL (0-0.2); EOS % 0.8 %; EOS ABS # 0.08 K/uL (0-0.5); HEMOGLOBIN 13.4 g/dL (14.0-18.0); IG# 0.02 K/uL (0.00-0.02); LYMPH % 14.2 %; LYMPH ABS # 1.39 K/uL (1.2-3.4); MEAN CORPUSCULAR HEMOGLOBIN 29.1 pg (25-34); MEAN CORPUSCULAR HGB CONC 33.5 g/dl (32-36); MEAN PLATELET VOLUME 10.3 fL (7.4-10.4); MONO % 6.9 %; MONO ABS # 0.67 K/uL (0.11-0.59); NEUT % 77.8 %; NEUT ABS # 7.61 K/uL (1.4-6.5); PLATELET COUNT 153 K/uL (130-400); RED CELL DISTRIBUTION WIDTH CV 13.9 % (11.5-14.5); RED CELL DISTRIBUTION WIDTH SD 43.9 fL (36.4-46.3); WHITE BLOOD COUNT 9.78 K/uL (4.8-10.8)
[2017-10-30 12:10] LABS: PTT PATIENT 29.3 SECONDS (21.0-31.0)
--- NOTE | 2017-10-30 12:12 | DIAGNOSTIC IMAGING REPORT ---
CHEST ONE VIEW PORTABLE CLINICAL HISTORY: 62 years-old Male presenting with EVALUATE ALTERED MENTAL STATUS/WEAKNESS. TECHNIQUE: Portable upright AP view of the chest was obtained. COMPARISON: 10/13/2017. FINDINGS: Atherosclerosis of aortic arch. Cardiac silhouette mildly enlarged. Pulmonary vascular prominence. Mildly low lung volumes. No focal opacity. No large effusion or pneumothorax. Degenerative changes of the thoracic spine. Upper abdomen normal. IMPRESSION: 1. Mild cardiomegaly with possible volume overload. 2. Mildly low lung volumes with hypoventilatory changes. Electronically signed by: Mitesh Shook M.D. 10/30/2017 12:11 PM Dictated Date/Time: 10/30/2017 12:10 PM
[2017-10-30 12:28] LABS: ALBUMIN 3.6 gm/dl (3.4-5.0); ALKALINE PHOSPHATASE 114 U/L (45-117); ALT/SGPT 14 U/L (12-78); AST/SGOT 24 U/L (15-37); BLOOD UREA NITROGEN 128 mg/dl (7-18); CALCIUM 9.4 mg/dl (8.5-10.1); CARBON DIOXIDE 25 mmol/L (21-32); CREATININE 4.46 mg/dl (0.60-1.40); GLUCOSE 115 mg/dl (70-99); LIPASE 447 U/L (73-393); POTASSIUM 5.5 mmol/L (3.5-5.1); SODIUM 139 mmol/L (136-145); TOTAL PROTEIN 8.1 gm/dl (6.4-8.2)
[2017-10-30 12:46] LABS: CKMB 1.3 ng/ml (0.5-3.6)
[2017-10-30] MEDS ORDERED: SODIUM POLYST. SULF SUSP 15G/60ML PO STA (13:50)
[2017-10-30] MEDS ORDERED: OXYCODONE/ACETAMINOPHEN 5-325 TAB PO PRN (14:00)
[2017-10-30] MEDS ORDERED: ACETAMINOPHEN 325 MG TAB PO PRN (14:00)
[2017-10-30] MEDS ORDERED: ZOLPIDEM TARTRATE 10 MG TAB PO PRN (14:00)
[2017-10-30] MEDS ORDERED: GLUCOSE 10 TABS/TUBE PO PRN (14:30)
[2017-10-30] MEDS ORDERED: GLUCOSE 40% GEL 15 GM TUBE PO PRN (14:30)
[2017-10-30] MEDS ORDERED: GLUCAGON FOR INJ 1 MG VIAL IM PRN (14:30)
[2017-10-30] MEDS ORDERED: DEXTROSE 50% 50 ML SYR IV PRN (14:30)
--- NOTE | 2017-10-30 14:36 | History and Physical ---
History & Physical Date & Time of Service: October 30, 2017 at 13:32 Chief Complaint: Abnormal Labs Primary Care Physician: Doris Dixon History of Present Illness Source: patient, family, clinic records, hospital records Mr. Gonzalez was at [facility] since his last admission in early October. He was placed there for rehab due to weakness. He had routine blood work today and it was found that he had abnormal lab work and was sent to the ED. He has been having some urinary hesitancy and difficulty urinating for "a while ". Per his son, he had a catheter for some time and then had some procedure that allowed him to stop using the catheter last year. When he had a catheter placed in the ED he had 2100 ml urine out immediately with another 500 ml since then. He denies hematuria ROS Constitutional: no chills, aches, sweats or fever Respiratory: no sob,cough, sputum, or wheezing Cardiac: no chest pain, palpitations, edema, orthopnea or lightheadedness GI: no abdominal pain, nausea, vomiting, diarrhea or constipation : see HPI Extremities: no joint pain or weakness Skin: no rash All other systems reviewed and negative Pmhx: blood clots with IVC filter, dm II not well controlled, Parkinson's disease, htn, chronic robert for neurogenic bladder Past Medical/Surgical History Medical Problems: (1) Abdominal pain (2) Anticoagulated (3) Back pain (4) Bronchitis (5) Soni infection (6) Catheter-associated urinary tract infection (7) Cephalgia (8) Chest pain (9) Chest pain (10) Chest pain of uncertain etiology (11) Chest pain, pleuritic (12) Chronic chest pain (13) Complicated UTI (urinary tract infection) (14) Complication, blocked Robert catheter (15) Diabetes mellitus (16) Dyspnea (17) Dyspnea on exertion (18) Elevated lactic acid level (19) Elevated troponin (20) Elevated troponin (21) Elevated troponin (22) Epigastric abdominal pain (23) Fall (24) Gastroesophageal reflux disease (25) General weakness (26) Gout (27) Head trauma (28) Headache (29) Hemoptysis (30) History of pulmonary embolism (31) HTN (hypertension) (32) Hyperglycemia (33) Hyperglycemia (34) Hypertension (35) Hypoxia (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 (37) Left sided chest pain (38) Left sided chest pain (39) Lower abdominal pain (40) Neck pain (41) Neurogenic bladder (42) Non-cardiac chest pain (43) Parkinson's disease (44) Poorly-controlled hypertension (45) Precordial chest pain (46) Productive cough (47) Pulmonary air embolism (48) Pulmonary embolism (49) Pulmonary embolus (50) Pyelonephritis (51) Right arm weakness (52) Right upper extremity numbness (53) Sepsis (54) Shortness of breath (55) Shortness of breath (56) SIRS (systemic inflammatory response syndrome) (57) Skin breakdown (58) Spinal stenosis (59) Subtherapeutic international normalized ratio (INR) (60) Syncope (61) Tachycardia (62) TIA (transient ischemic attack) (63) Uncontrolled hypertension (64) Upper respiratory infection with cough and congestion (65) Urinary tract infection (66) Urinary tract infection (67) UTI (urinary tract infection) (68) UTI (urinary tract infection) (69) Vomiting (70) Weakness (71) Weakness Family History Family history was reviewed; no changes noted. Social History Smoking Status: Never Smoker Smokeless Tobacco Use: No Alcohol Use: none Drug Use: none Marital Status: Housing status: care home (rehab at [facility]) Occupational Status: disabled Immunizations History of Influenza Vaccine: Unknown History of Tetanus Vaccine?: probably over 10 yrs ago History of Pneumococcal: apr 2004 History of Hepatitis B Vaccine: 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 Allergies Coded Allergies: Penicillins (Verified Allergy, Severe, 10/30/17) SEVERE RXN PER PT Cephalosporins (Verified Allergy, Unknown, 10/30/17) Sulfamethoxazole w/Trimethoprim (Verified Allergy, Unknown, ., 10/30/17) TAKES LASIX AT HOME Lisinopril (Verified Adverse Reaction, Intermediate, Cough, 10/30/17) Home Medications Scheduled Allopurinol (Allopurinol), 100 MG PO DAILY Amantadine HCl (Amantadine HCl), 100 MG PO BID Amlodipine Besylate (Amlodipine Besylate), 5 MG PO DAILY Apixaban (Eliquis), 2.5 MG PO BID Ascorbic Acid (Vitamin C), 500 MG PO QAM Carbidopa/Levodopa (Sinemet Cr 50MG/200MG), 1 TAB PO BID Dutasteride (Avodart), 0.5 MG PO DAILY Ferrous Sulfate (Iron), 325 MG PO DAILY Fluoxetine (Prozac), 40 MG PO DAILY Furosemide (Furosemide), 80 MG PO BID Isosorbide Mononitrate (Isosorbide Mononitrate ER), 30 MG PO QAM Losartan Potassium (Cozaar), 1 TAB PO DAILY Metoprolol Succinate (Metoprolol Succinate ER), 12.5 MG PO DAILY Mirabegron (Myrbetriq Er), 50 MG PO DAILY Pregabalin (Lyrica), 300 MG PO BID Ranitidine Hcl (Zantac), 150 MG PO HS Simvastatin (Zocor), 20 MG PO QPM Spironolactone (Aldactone), 50 MG PO BID Tamsulosin Hcl (Flomax), 0.4 MG PO DAILY [Unknown Insulin], 60 UNITS SC QAM Scheduled PRN Colchicine (Colchicine), 0.6 MG PO DAILY PRN for Gout Flare Up Oxycodone/Acetaminophen 5MG/325MG (Percocet 5MG/325MG), 1-2 TABLETS PO Q4H PRN for Pain Zolpidem Tartrate (Ambien), 10 MG PO HS PRN for Sleep Physical Exam Vital Signs Date Time Temp Pulse Resp B/P (MAP) Pulse Ox O2 Delivery O2 Flow Rate FiO2 10/30/17 13:11 76 120/68 99 Room Air 10/30/17 12:20 78 122/65 99 Room Air 10/30/17 12:13 80 10/30/17 11:25 36.4 83 126/67 100 Room Air 10/30/17 11:25 99 Room Air General: no distress Eyes: normal inspection, PERLL Respiratory: chest non tender, clear to auscultation, normal breath sounds, no respiratory distress, no accessory muscle use Cardiac: regular rate and rhythm, no rub or gallop, no murmur, no edema, no jvd GI/: active bowel sounds, tenderness over lower abdomen, soft, non distended Extremities: normal range of motion, normal strength, non tender Neuro/Psych: alert and oriented x 2, flat affect Skin: normal color, dry Diagnostics Laboratory Results Results Past 24 Hours Test 10/30/17 11:50 Range/Units White Blood Count 9.78 4.8-10.8 K/uL Red Blood Count 4.60 4.7-6.1 M/uL Hemoglobin 13.4 14.0-18.0 g/dL Hematocrit 40.0 42-52 % Mean Corpuscular Volume 87.0 80-100 fL Mean Corpuscular Hemoglobin 29.1 25-34 pg Mean Corpuscular Hemoglobin Concent 33.5 32-36 g/dl Platelet Count 153 130-400 K/uL Mean Platelet Volume 10.3 7.4-10.4 fL Neutrophils (%) (Auto) 77.8 % Lymphocytes (%) (Auto) 14.2 % Monocytes (%) (Auto) 6.9 % Eosinophils (%) (Auto) 0.8 % Basophils (%) (Auto) 0.1 % Neutrophils # (Auto) 7.61 1.4-6.5 K/uL Lymphocytes # (Auto) 1.39 1.2-3.4 K/uL Monocytes # (Auto) 0.67 0.11-0.59 K/uL Eosinophils # (Auto) 0.08 0-0.5 K/uL Basophils # (Auto) 0.01 0-0.2 K/uL RDW Standard Deviation 43.9 36.4-46.3 fL RDW Coefficient of Variation 13.9 11.5-14.5 % Immature Granulocyte % (Auto) 0.2 % Immature Granulocyte # (Auto) 0.02 0.00-0.02 K/uL Prothrombin Time 10.9 9.0-12.0 SECONDS Prothromb Time International Ratio 1.0 0.9-1.1 Activated Partial Thromboplast Time 29.3 21.0-31.0 SECONDS Partial Thromboplastin Ratio 1.1 Urine Color YELLOW Urine Appearance CLEAR CLEAR Urine pH 5.0 4.5-7.5 Urine Specific [place] 1.015 1.000-1.030 Urine Protein NEG NEG Urine Glucose (UA) NEG NEG Urine Ketones NEG NEG Urine Occult Blood 2+ NEG Urine Nitrite NEG NEG Urine Bilirubin NEG NEG Urine Urobilinogen NEG NEG Urine Leukocyte Esterase NEG NEG Urine WBC (Auto) 0 0-5 /hpf Urine RBC (Auto) 0-4 0-4 /hpf Urine Hyaline Casts (Auto) 0 0-5 /lpf Urine Epithelial Cells (Auto) 0-5 0-5 /lpf Urine Bacteria (Auto) NEG NEG Urine Random Sodium 84 mEq/L Sodium Level 139 136-145 mmol/L Potassium Level 5.5 3.5-5.1 mmol/L Chloride Level 105 98-107 mmol/L Carbon Dioxide Level 25 21-32 mmol/L Anion Gap 8.0 3-11 mmol/L Blood Urea Nitrogen 128 7-18 mg/dl Creatinine 4.46 0.60-1.40 mg/dl Est Creatinine Clear Calc Drug Dose 21.9 ml/min Estimated GFR () 15.2 Estimated GFR (Non- 13.1 BUN/Creatinine Ratio 28.7 10-20 Random Glucose 115 70-99 mg/dl Calcium Level 9.4 8.5-10.1 mg/dl Phosphorus Level 6.0 2.5-4.9 mg/dl Magnesium Level 3.1 1.8-2.4 mg/dl Total Bilirubin 0.4 0.2-1 mg/dl Direct Bilirubin 0.2 0-0.2 mg/dl Aspartate Amino Transf (AST/SGOT) 24 15-37 U/L Alanine Aminotransferase (ALT/SGPT) 14 12-78 U/L Alkaline Phosphatase 114 45-117 U/L Total Creatine Kinase 63 39-308 U/L Creatine Kinase MB 1.3 0.5-3.6 ng/ml Creatine Kinase MB Ratio 2.1 0-3.0 Troponin I < 0.015 0-0.045 ng/ml Pro-B-Type Natriuretic Peptide 148 0-900 pg/ml Total Protein 8.1 6.4-8.2 gm/dl Albumin 3.6 3.4-5.0 gm/dl Lipase 447 73-393 U/L Thyroid Stimulating Hormone (TSH) 2.590 0.300-4.500 uIu/ml Microbiology Results 10/30/17 Urine Culture, Received Pending Diagnostic Radiology CHEST ONE VIEW PORTABLE CLINICAL HISTORY: 62 years-old Male presenting with EVALUATE ALTERED MENTAL STATUS/WEAKNESS. TECHNIQUE: Portable upright AP view of the chest was obtained. COMPARISON: 10/13/2017. FINDINGS: Atherosclerosis of aortic arch. Cardiac silhouette mildly enlarged. Pulmonary vascular prominence. Mildly low lung volumes. No focal opacity. No large effusion or pneumothorax. Degenerative changes of the thoracic spine. Upper abdomen normal. IMPRESSION: 1. Mild cardiomegaly with possible volume overload. 2. Mildly low lung volumes with hypoventilatory changes. Electronically signed by: Mitesh Shook M.D. 10/30/2017 12:11 PM EKG Sinus rhythm with 1st degree A-V block Cannot rule out Inferior infarct When compared with ECG of 15-OCT-2017 16:23, ST no longer elevated in Inferior leads Confirmed by KRISTEN ESCALANTE ([id number]) on 10/30/2017 1:55:13 PM Impression Assessment and Plan Mr. Gonzalez is a 62 year old man here for JOLLY due to obstructive uropathy. JOLLY due to obstructive uropathy, history of neurogenic bladder - admit telemetry - Creatinine on admission was 4.46, baseline is around 1.0 - Robert catheter - Consult urology - sees Dr. Case outpatient and nephrology - continue home Myrbetriq, tamsulosin and dutasteride - UC pending, U/A with 2+ blood - gentle IV fluid - NSS @ 75, will need to watch for fluid overload at CXR showed mild congestion and patient has a history of diastolic dysfunction - hold home lasix, spironolactone and losartan - phos with evening prp, prp bid Hyperkalemia - K 5.5 - Kayexalate - repeat prp this evening DMII with neuropathy - lantus 30 units bid as home dose is 60 qam, ss, bsgs AC & HS - A1c in February was 7.9 - continue pregabalin Parkinsons - Continue home Sinemet, amantadine - PT/OT HTN, Grade I diastolic dysfunction - continue metoprolol, isosorbide, amlodipine - hold losartan, spironolactone and lasix - monitor for fluid overload Gout - continue home allopurinol History of DVT/PE - continue home apixaban GERD - continue home ranitidine HLD - continue home simvastatin Advanced Directives Existing Advance Directive: Yes Existing Living Will: Yes Existing Power of Yarn Salvager: Yes (Binu Gonzalez ) Resuscitation Status DNR VTE Prophylaxis Will order VTE Prophylaxis: Yes
[2017-10-30 15:15] VITALS: BP 128/70; TEMP 36.4; O2SAT 98; BMI 39.7
[2017-10-30 15:38] VITALS: BP 128/70; PULSE 70; TEMP 36.4; O2SAT 98
[2017-10-30] MEDS: AVODART - ORDER AWAITING ACTION SCH ×2 (16:00→22:50)
[2017-10-30] MEDS: SODIUM CHLORIDE 0.9% 1000ML 1,000 ML IV SCH (16:04)
[2017-10-30] MEDS: INSULIN ASPART 100 UNITS/ML 3 ML PEN SC SCH ×2 (19:05→21:54)
[2017-10-30 19:22] VITALS: BP 123/68; PULSE 71; TEMP 36.5; O2SAT 100
[2017-10-30 19:56] LABS: CALCIUM 9.1 mg/dl (8.5-10.1); CREATININE 3.65 mg/dl (0.60-1.40); PHOSPHORUS 5.6 mg/dl (2.5-4.9); POTASSIUM 4.8 mmol/L (3.5-5.1)
[2017-10-30 20:00] VITALS: O2SAT 100
[2017-10-30] MEDS: APIXABAN 2.5 MG TAB PO SCH (21:49)
[2017-10-30] MEDS: AMANTADINE HCL 100 MG CAP PO SCH (21:49)
[2017-10-30] MEDS: CARBIDOPA/LEVODOPA 50/200MG EXT REL TAB PO SCH (21:49)
[2017-10-30] MEDS: RANITIDINE HCL 150 MG TAB PO SCH (21:50)
[2017-10-30] MEDS: SIMVASTATIN 20 MG TAB PO SCH (21:50)
[2017-10-30] MEDS: PREGABALIN 150 MG CAP PO SCH (21:53)
[2017-10-30 23:26] VITALS: BP 102/66; PULSE 71; TEMP 36.3; O2SAT 97
[2017-10-31 03:16] VITALS: BP 105/69; PULSE 66; TEMP 37; O2SAT 98
[2017-10-31] MEDS: SODIUM CHLORIDE 0.9% 1000ML 1,000 ML IV SCH ×2 (03:44→18:27)
[2017-10-31 06:25] LABS: HEMATOCRIT 39.9 % (42-52); HEMOGLOBIN 13.3 g/dL (14.0-18.0); MEAN CELL VOLUME 88.1 fL (80-100); MEAN CORPUSCULAR HEMOGLOBIN 29.4 pg (25-34); MEAN CORPUSCULAR HGB CONC 33.3 g/dl (32-36); MEAN PLATELET VOLUME 10.2 fL (7.4-10.4); PLATELET COUNT 136 K/uL (130-400); RED CELL DISTRIBUTION WIDTH CV 13.9 % (11.5-14.5); WHITE BLOOD COUNT 8.24 K/uL (4.8-10.8)
[2017-10-31 06:28] VITALS: BP 125/74; PULSE 62; TEMP 36.4; O2SAT 94
[2017-10-31 06:54] LABS: CALCIUM 9.2 mg/dl (8.5-10.1); CREATININE 2.87 mg/dl (0.60-1.40); POTASSIUM 4.8 mmol/L (3.5-5.1)
[2017-10-31] MEDS: INSULIN ASPART 100 UNITS/ML 3 ML PEN SC SCH ×4 (07:00→21:00)
[2017-10-31] MEDS: INSULIN GLARGINE SOLOSTAR 100 UNITS/ML 3 ML PEN SC SCH ×2 (07:47→21:16)
[2017-10-31] MEDS: PREGABALIN 150 MG CAP PO SCH ×2 (07:48→20:04)
[2017-10-31] MEDS: FERROUS SULFATE 325 MG TAB PO SCH (07:48)
[2017-10-31] MEDS: ASCORBIC ACID 500 MG TAB PO SCH (07:48)
[2017-10-31] MEDS: AMLODIPINE BESYLATE 5 MG TAB PO SCH (07:49)
[2017-10-31] MEDS: TAMSULOSIN HCL 0.4 MG CAP PO SCH (07:49)
[2017-10-31] MEDS: APIXABAN 2.5 MG TAB PO SCH ×2 (07:49→20:01)
[2017-10-31] MEDS: MIRABEGRON ER 25 MG TAB PO SCH (07:49)
[2017-10-31] MEDS: ALLOPURINOL 100 MG TAB PO SCH (07:49)
[2017-10-31] MEDS: CARBIDOPA/LEVODOPA 50/200MG EXT REL TAB PO SCH ×2 (07:49→20:01)
[2017-10-31] MEDS: FLUOXETINE HCL 20 MG CAP PO SCH (07:49)
[2017-10-31] MEDS: ISOSORBIDE MONONITRATE 30 MG TABCR PO SCH (07:49)
[2017-10-31] MEDS: AMANTADINE HCL 100 MG CAP PO SCH ×2 (07:49→20:01)
[2017-10-31] MEDS: METOPROLOL SUCC 25MG EXT REL TAB PO SCH (07:50)
[2017-10-31] MEDS: AVODART - ORDER AWAITING ACTION SCH ×3 (08:00→22:32)
--- NOTE | 2017-10-31 08:53 | Hospitalist Progress Note ---
Hospitalist Progress Note Date of Service October 31, 2017. Subjective Pt evaluation today including: conversation w/ patient, physical exam, chart review, lab review, review of studies, review of inpatient medication list Patient seen and evaluated. No acute events overnight. Sinus rhythm on monitor. Wills placed with good urine output. No abdominal pain or bladder pressure. Cr. improved from 4.4 to 2.8 currently. Verbalized no other issues at this time Was at [facility] to work on weakness and does feel that he has made improvements while there. Appears euvolemic with no evidence of congestive failure at this time Constitutional: No fever, No chills Respiratory: No cough, No shortness of breath Cardiovascular: No chest pain Abdomen: No pain, No nausea, No vomiting, No diarrhea Musculoskeletal: No swelling, No calf pain Male : No dysuria Heme: No abnormal bleeding/bruising Medications Current Inpatient Medications Medications (Trade) Dose Ordered Sig/Apryl Route Start Time Stop Time Status Last Admin Dose Admin Sodium Chloride 1,000 ml @ 75 mls/hr [id number] IV 10/30/17 13:50 11/29/17 13:49 10/31/17 03:44 75 MLS/HR Acetaminophen (Tylenol Tab) 650 mg Q4H PRN PO 10/30/17 14:00 11/29/17 13:59 Allopurinol (Zyloprim Tab) 100 mg DAILY PO 10/31/17 09:00 11/30/17 08:59 Amantadine HCl (Symmetrel Cap) 100 mg BID PO 10/30/17 21:00 11/29/17 20:59 10/30/17 21:49 100 MG Amlodipine Besylate (Norvasc Tab) 5 mg DAILY PO 10/31/17 09:00 11/30/17 08:59 Apixaban (Eliquis Tab) 2.5 mg BID PO 10/30/17 21:00 11/29/17 20:59 10/30/17 21:49 2.5 MG Ascorbic Acid (Vitamin C Tab) 500 mg QAM PO 10/31/17 09:00 11/30/17 08:59 Carbidopa/Levodopa (Sinemet Cr 50/ 200MG Tab) 1 tab BID PO 10/30/17 21:00 11/29/17 20:59 10/30/17 21:49 1 TAB Fluoxetine HCl (Prozac Cap) 40 mg DAILY PO 10/31/17 09:00 11/30/17 08:59 Isosorbide Mononitrate (Imdur Ext Rel Tab) 30 mg QAM PO 10/31/17 09:00 11/30/17 08:59 Metoprolol Succinate (Toprol Xl Tab) 12.5 mg DAILY PO 10/31/17 09:00 11/30/17 08:59 Mirabegron (Myrbetriq Er) 50 mg DAILY PO 10/31/17 09:00 11/30/17 08:59 Oxycodone/ Acetaminophen (Percocet 5-325mg Tab) 1 tab Q4H PRN PO 10/30/17 14:00 11/13/17 13:59 Pregabalin (Lyrica Cap) 300 mg BID PO 10/30/17 21:00 11/29/17 20:59 10/30/17 21:53 300 MG Ranitidine HCl (zANTac TAB) 150 mg HS PO 10/30/17 21:00 11/29/17 20:59 10/30/17 21:50 150 MG Simvastatin (Zocor Tab) 20 mg QPM PO 10/30/17 21:00 11/29/17 20:59 10/30/17 21:50 20 MG Tamsulosin HCl (Flomax Cap) 0.4 mg DAILY PO 10/31/17 09:00 11/30/17 08:59 Zolpidem Tartrate (Ambien Tab) 10 mg HS PRN PO 10/30/17 14:00 11/29/17 13:59 Miscellaneous Information (Order Awaiting Action) 1 ea QS N/A 10/30/17 16:00 11/29/17 15:59 10/30/17 22:50 1 EA Ferrous Sulfate (Feosol Tab) 325 mg DAILY PO 10/31/17 09:00 11/30/17 08:59 Insulin Glargine (Lantus Solostar Pen) 30 units BID SC 10/31/17 09:00 11/30/17 08:59 Insulin Aspart (novoLOG ASPART) SLIDING SCALE If C... ACHS SC 10/30/17 16:00 11/29/17 15:59 Glucose (Glucose 40% Gel) 15-30 GRAMS 15 GRAMS... UD PRN PO 10/30/17 14:30 11/29/17 14:29 Glucose (Glucose Chew Tab) 4-8 Tablets 4 Tabl... UD PRN PO 10/30/17 14:30 11/29/17 14:29 Dextrose (Dextrose 50% 50ML Syringe) 25-50ML 25ML FOR ... UD PRN IV 10/30/17 14:30 11/29/17 14:29 Glucagon (Glucagon Inj) 1 mg UD PRN IM 10/30/17 14:30 11/29/17 14:29 Carbohydrates (Carbohydrates For Hypoglycemia) 15-30 GRAMS 15 grams if BSG 54-69... UD PRN PO 10/30/17 14:30 11/29/17 14:29 Objective Vital Signs Date Time Temp Pulse Resp B/P (MAP) Pulse Ox O2 Delivery O2 Flow Rate FiO2 10/31/17 06:28 36.4 62 18 125/74 (91) 94 Room Air 10/31/17 04:18 Room Air 10/31/17 03:16 37.0 66 16 105/69 (81) 98 Room Air 10/31/17 00:28 Room Air 10/30/17 23:26 36.3 71 16 102/66 (78) 97 10/30/17 20:00 100 Room Air 10/30/17 19:22 36.5 71 22 123/68 (86) 100 Room Air 10/30/17 15:38 36.4 70 20 128/70 (89) 98 Room Air 10/30/17 15:15 36.4 20 128/70 98 Room Air 10/30/17 15:12 73 118/72 97 10/30/17 13:11 76 120/68 99 Room Air 10/30/17 12:20 78 122/65 99 Room Air 10/30/17 12:13 80 10/30/17 11:25 36.4 83 126/67 100 Room Air 10/30/17 11:25 99 Room Air Physical Exam General Appearance: WD/WN, no apparent distress Eyes: sclerae normal ENT: hearing grossly normal Neck: supple, no JVD, trachea midline Respiratory/Chest: lungs clear, normal breath sounds, no respiratory distress, no accessory muscle use Cardiovascular: regular rate, rhythm, no gallop, no murmur Abdomen: normal bowel sounds, non tender, soft Extremities: no pedal edema Neurologic/Psychiatric: alert Skin: normal color, warm/dry Laboratory Results Last 24 Hours Test 10/30/17 11:50 10/30/17 16:21 10/30/17 19:19 10/30/17 20:14 White Blood Count 9.78 K/uL Red Blood Count 4.60 M/uL Hemoglobin 13.4 g/dL Hematocrit 40.0 % Mean Corpuscular Volume 87.0 fL Mean Corpuscular Hemoglobin 29.1 pg Mean Corpuscular Hemoglobin Concent 33.5 g/dl Platelet Count 153 K/uL Mean Platelet Volume 10.3 fL Neutrophils (%) (Auto) 77.8 % Lymphocytes (%) (Auto) 14.2 % Monocytes (%) (Auto) 6.9 % Eosinophils (%) (Auto) 0.8 % Basophils (%) (Auto) 0.1 % Neutrophils # (Auto) 7.61 K/uL Lymphocytes # (Auto) 1.39 K/uL Monocytes # (Auto) 0.67 K/uL Eosinophils # (Auto) 0.08 K/uL Basophils # (Auto) 0.01 K/uL RDW Standard Deviation 43.9 fL RDW Coefficient of Variation 13.9 % Immature Granulocyte % (Auto) 0.2 % Immature Granulocyte # (Auto) 0.02 K/uL Prothrombin Time 10.9 SECONDS Prothromb Time International Ratio 1.0 Activated Partial Thromboplast Time 29.3 SECONDS Partial Thromboplastin Ratio 1.1 Urine Color YELLOW Urine Appearance CLEAR Urine pH 5.0 Urine Specific [place] 1.015 Urine Protein NEG Urine Glucose (UA) NEG Urine Ketones NEG Urine Occult Blood 2+ Urine Nitrite NEG Urine Bilirubin NEG Urine Urobilinogen NEG Urine Leukocyte Esterase NEG Urine WBC (Auto) 0 /hpf Urine RBC (Auto) 0-4 /hpf Urine Hyaline Casts (Auto) 0 /lpf Urine Epithelial Cells (Auto) 0-5 /lpf Urine Bacteria (Auto) NEG Urine Random Sodium 84 mEq/L Sodium Level 139 mmol/L 142 mmol/L Potassium Level 5.5 mmol/L 4.8 mmol/L Chloride Level 105 mmol/L 108 mmol/L Carbon Dioxide Level 25 mmol/L 26 mmol/L Anion Gap 8.0 mmol/L 8.0 mmol/L Blood Urea Nitrogen 128 mg/dl 109 mg/dl Creatinine 4.46 mg/dl 3.65 mg/dl Est Creatinine Clear Calc Drug Dose 21.9 ml/min 26.7 ml/min Estimated GFR () 15.2 19.3 Estimated GFR (Non- 13.1 16.7 BUN/Creatinine Ratio 28.7 29.9 Random Glucose 115 mg/dl 94 mg/dl Calcium Level 9.4 mg/dl 9.1 mg/dl Phosphorus Level 6.0 mg/dl 5.6 mg/dl Magnesium Level 3.1 mg/dl Total Bilirubin 0.4 mg/dl Direct Bilirubin 0.2 mg/dl Aspartate Amino Transf (AST/SGOT) 24 U/L Alanine Aminotransferase (ALT/SGPT) 14 U/L Alkaline Phosphatase 114 U/L Total Creatine Kinase 63 U/L Creatine Kinase MB 1.3 ng/ml Creatine Kinase MB Ratio 2.1 Troponin I < 0.015 ng/ml Pro-B-Type Natriuretic Peptide 148 pg/ml Total Protein 8.1 gm/dl Albumin 3.6 gm/dl Lipase 447 U/L Thyroid Stimulating Hormone (TSH) 2.590 uIu/ml Bedside Glucose 97 mg/dl 104 mg/dl Test 10/31/17 05:17 10/31/17 07:25 White Blood Count 8.24 K/uL Red Blood Count 4.53 M/uL Hemoglobin 13.3 g/dL Hematocrit 39.9 % Mean Corpuscular Volume 88.1 fL Mean Corpuscular Hemoglobin 29.4 pg Mean Corpuscular Hemoglobin Concent 33.3 g/dl RDW Standard Deviation 45.0 fL RDW Coefficient of Variation 13.9 % Platelet Count 136 K/uL Mean Platelet Volume 10.2 fL Sodium Level 144 mmol/L Potassium Level 4.8 mmol/L Chloride Level 110 mmol/L Carbon Dioxide Level 26 mmol/L Anion Gap 8.0 mmol/L Blood Urea Nitrogen 95 mg/dl Creatinine 2.87 mg/dl Est Creatinine Clear Calc Drug Dose 34.0 ml/min Estimated GFR () 25.8 Estimated GFR (Non- 22.3 BUN/Creatinine Ratio 33.2 Random Glucose 59 mg/dl Calcium Level 9.2 mg/dl Bedside Glucose 74 mg/dl Assessment and Plan Mr. Gonzalez is a 62 year old man here for JOLLY due to obstructive uropathy. Acute Kidney Injury on CKD Stage II: Suspect Obstructive Uropathy with H/O Neurogenic Bladder - Creatinine improving down to 2.8 with baseline around 1.0 - Wills catheter placed and draining adequate clear/yellow urine - UA unremarkable except for occult blood - cx pending - could consider KUB pending recs from urology/nephro for further evaluation however no symptoms suggesting stone - Lasix, Losartan, and Spironolactone on hold - NSS at 75 mL/hr - no evidence of congestive failure on examination today - Myrbetriq 50 mg daily and Flomax 0.4 mg daily - Urology and Nephrology consulted - appreciate input Hyperkalemia: RESOLVED - continue to monitor - no arrhythmia issues noted Parkinson's Disease: STABLE - Presents with mild hand tremors b/l - Amantadine 100 mg BID and Sinemet 1 tab BID HTN/HLD and Grade I Diastolic Dysfunction: STABLE - Norvasc 5 mg daily, Imdur 30 mg daily, Toprol XL 12.5 mg daily - Simvastatin 20 mg daily T2DM with Peripheral Neuropathy: A1c 7.9 - Continue Lantus 30 units BID - may need further decrease pending on BSGs; SSI - Lyrica 300 mg BID H/O DVT/PE: - Eliquis 2.5 mg BID DVT Prophylaxis: Eliquis Code Status: DNR Disposition: PT/OT - Recently at [facility] to work on weakness Continued [facility] stay due to: multiple IV medications needed Discharge planning: jail facility
--- NOTE | 2017-10-31 10:13 | Urology Consultation ---
History General Date of Service: October 31, 2017. Primary Care Physician: Doris Dixon Pt seen a urologist before?: Yes If yes, why?: Urinary retention History of Present Illness 62-year-old gentleman with a complex medical history recently admitted for acute renal failure found to have a massively distended bladder and bilateral hydronephrosis 2100 cc drained after Wills placement Improvement in his creatinine since admission Subjective improvement after relief of his discomfort in the lower abdomen with catheter placement He and I have discussed his prior history He is followed with 1 of my partners as an outpatient He had a Wills catheter prior to October 31, 2016, at which time he had his catheter removed He has voided, albeit poorly for the past year Significant incontinence, small volume voids, dribbling For the past month, he is felt that he was progressing gradually into retention again This ultimately culminated with an ER visit discovering acute renal failure secondary to obstructive uropathy Laboratory Labs were reviewed and are within normal limits unless listed below. Labs are available in the chart and at [facility] Problem List Medical Problems: (1) Anticoagulated Status: Acute (2) Back pain Status: Acute (3) Soni infection Status: Acute (4) Cephalgia Status: Acute (5) Chest pain, pleuritic Status: Acute (6) Chronic chest pain Status: Acute (7) Complicated UTI (urinary tract infection) Status: Acute (8) Dyspnea on exertion Status: Acute (9) Elevated lactic acid level Status: Acute (10) Elevated troponin Status: Acute (11) Elevated troponin Status: Acute (12) Elevated troponin Status: Acute (13) Fall Status: Acute (14) Head trauma Status: Acute (15) Headache Status: Acute (16) Hemoptysis Status: Acute (17) History of pulmonary embolism Status: Acute (18) HTN (hypertension) Status: Acute (19) Hyperglycemia Status: Acute (20) Left sided chest pain Status: Acute (21) Left sided chest pain Status: Acute (22) Lower abdominal pain Status: Acute (23) Neck pain Status: Acute (24) Neurogenic bladder Status: Acute (25) Non-cardiac chest pain Status: Acute (26) Obstructive uropathy Status: Acute (27) Poorly-controlled hypertension Status: Acute (28) Pyelonephritis Status: Acute (29) Renal failure Status: Acute (30) Sepsis Status: Acute (31) Skin breakdown Status: Acute (32) Spinal stenosis Status: Acute (33) Subtherapeutic international normalized ratio (INR) Status: Acute (34) Tachycardia Status: Acute (35) TIA (transient ischemic attack) Status: Acute (36) Upper respiratory infection with cough and congestion Status: Acute (37) Urinary tract infection Status: Acute (38) UTI (urinary tract infection) Status: Acute (39) UTI (urinary tract infection) Status: Acute (40) Vomiting Status: Acute Past History arthritis, BPH, coronary artery disease, diabetes, GERD, gout, hypertension, kidney stones, urinary tract infection, other Past Surgical History: appendectomy, tonsillectomy, other Family History Cancer Diabetes mellitus FH: heart disease Hypertension Social History Hx Tobacco Use In Past Year?: No Smoking: non-smoker Marital status: Housing status: prison (rehab at [facility]) Occupation status: disabled Immunizations History of Influenza Vaccine: Unknown History of Tetanus Vaccine?: probably over 10 yrs ago History of Pneumococcal: apr 2004 History of Hepatitis B Vaccine: 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 History of MDRO No Allergies Coded Allergies: Penicillins (Verified Allergy, Severe, 10/30/17) SEVERE RXN PER PT Cephalosporins (Verified Allergy, Unknown, 10/30/17) Sulfamethoxazole w/Trimethoprim (Verified Allergy, Unknown, ., 10/30/17) TAKES LASIX AT HOME Lisinopril (Verified Adverse Reaction, Intermediate, Cough, 10/30/17) Medications Home Medications: Home Meds and Scripts Medications Dose Route/Sig Max Daily Dose Days Date Category Amlodipine Besylate 5 Mg Tab 5 Mg PO DAILY 10/16/17 Rx Furosemide 80 Mg Tab 80 Mg PO BID 30 10/14/17 Rx Metoprolol Succinate ER (Metoprolol Succinate) 25 Mg Tabcr 12.5 Mg PO DAILY 30 10/14/17 Rx Cozaar (Losartan Potassium) 50 Mg Tab 1 Tab PO DAILY 30 10/14/17 Rx Aldactone (Spironolactone) 50 Mg Tab 50 Mg PO BID 30 10/14/17 Rx Isosorbide Mononitrate ER (Isosorbide Mononitrate) 30 Mg Tabcr 30 Mg PO QAM 10/14/17 Rx [Unknown Insulin] 60 Units SC QAM 10/13/17 Reported Eliquis (Apixaban) 2.5 Mg Tab 2.5 Mg PO BID 10/13/17 Reported Zantac (Ranitidine HCl) 150 Mg Tab 150 Mg PO HS 10/13/17 Reported Ambien (Zolpidem Tartrate) 10 Mg Tab 10 Mg PO HS PRN 01/23/17 Reported Colchicine 0.6 Mg Tab 0.6 Mg PO DAILY PRN 01/23/17 Reported Flomax (Tamsulosin Hcl) 0.4 Mg Cap 0.4 Mg PO DAILY 01/23/17 Reported Iron (Ferrous Sulfate) 325 Mg Tab 325 Mg PO DAILY 01/23/17 Reported Avodart (Dutasteride) 0.5 Mg Cap 0.5 Mg PO DAILY 01/23/17 Reported Prozac (Fluoxetine HCl) 40 Mg Cap 40 Mg PO DAILY 01/23/17 Reported Myrbetriq Er (Mirabegron) 50 Mg Tab 50 Mg PO DAILY 01/02/17 Reported Percocet 5MG/325MG (Oxycodone/Acetaminophen) Tab 1-2 Tablets PO Q4H PRN 01/02/17 Reported Zocor (Simvastatin) 20 Mg Tab 20 Mg PO QPM 11/12/16 Reported Vitamin C (Ascorbic Acid) 500 Mg Tab 500 Mg PO QAM 05/14/16 Reported Sinemet Cr 50MG/200MG (Carbidopa/Levodopa) Tabcr 1 Tab PO BID 02/24/16 Reported Amantadine HCl 100 Mg Cap 100 Mg PO BID 02/24/16 Reported Lyrica (Pregabalin) 300 Mg Cap 300 Mg PO BID 02/24/16 Reported Allopurinol 100 Mg Tab 100 Mg PO DAILY 02/24/16 Reported Inpatient Medications: Current Inpatient Medications Medications (Trade) Dose Ordered Sig/Apryl Route Start Time Stop Time Status Last Admin Dose Admin Sodium Chloride 1,000 ml @ 75 mls/hr [id number] IV 10/30/17 13:50 11/29/17 13:49 10/31/17 03:44 75 MLS/HR Acetaminophen (Tylenol Tab) 650 mg Q4H PRN PO 10/30/17 14:00 11/29/17 13:59 Allopurinol (Zyloprim Tab) 100 mg DAILY PO 10/31/17 09:00 11/30/17 08:59 10/31/17 07:49 100 MG Amantadine HCl (Symmetrel Cap) 100 mg BID PO 10/30/17 21:00 11/29/17 20:59 10/31/17 07:49 100 MG Amlodipine Besylate (Norvasc Tab) 5 mg DAILY PO 10/31/17 09:00 11/30/17 08:59 10/31/17 07:49 5 MG Apixaban (Eliquis Tab) 2.5 mg BID PO 10/30/17 21:00 11/29/17 20:59 10/31/17 07:49 2.5 MG Ascorbic Acid (Vitamin C Tab) 500 mg QAM PO 10/31/17 09:00 11/30/17 08:59 10/31/17 07:48 500 MG Carbidopa/Levodopa (Sinemet Cr 50/ 200MG Tab) 1 tab BID PO 10/30/17 21:00 11/29/17 20:59 10/31/17 07:49 1 TAB Fluoxetine HCl (Prozac Cap) 40 mg DAILY PO 10/31/17 09:00 11/30/17 08:59 10/31/17 07:49 40 MG Isosorbide Mononitrate (Imdur Ext Rel Tab) 30 mg QAM PO 10/31/17 09:00 11/30/17 08:59 10/31/17 07:49 30 MG Metoprolol Succinate (Toprol Xl Tab) 12.5 mg DAILY PO 10/31/17 09:00 11/30/17 08:59 10/31/17 07:50 12.5 MG Mirabegron (Myrbetriq Er) 50 mg DAILY PO 10/31/17 09:00 11/30/17 08:59 10/31/17 07:49 50 MG Oxycodone/ Acetaminophen (Percocet 5-325mg Tab) 1 tab Q4H PRN PO 10/30/17 14:00 11/13/17 13:59 Pregabalin (Lyrica Cap) 300 mg BID PO 10/30/17 21:00 11/29/17 20:59 10/31/17 07:48 300 MG Ranitidine HCl (zANTac TAB) 150 mg HS PO 10/30/17 21:00 11/29/17 20:59 10/30/17 21:50 150 MG Simvastatin (Zocor Tab) 20 mg QPM PO 10/30/17 21:00 11/29/17 20:59 10/30/17 21:50 20 MG Tamsulosin HCl (Flomax Cap) 0.4 mg DAILY PO 10/31/17 09:00 11/30/17 08:59 10/31/17 07:49 0.4 MG Zolpidem Tartrate (Ambien Tab) 10 mg HS PRN PO 10/30/17 14:00 11/29/17 13:59 Miscellaneous Information (Order Awaiting Action) 1 ea QS N/A 10/30/17 16:00 11/29/17 15:59 10/30/17 22:50 1 EA Ferrous Sulfate (Feosol Tab) 325 mg DAILY PO 10/31/17 09:00 11/30/17 08:59 10/31/17 07:48 325 MG Insulin Glargine (Lantus Solostar Pen) 30 units BID SC 10/31/17 09:00 11/30/17 08:59 10/31/17 07:47 30 UNITS Insulin Aspart (novoLOG ASPART) SLIDING SCALE If C... ACHS SC 10/30/17 16:00 11/29/17 15:59 Glucose (Glucose 40% Gel) 15-30 GRAMS 15 GRAMS... UD PRN PO 10/30/17 14:30 11/29/17 14:29 Glucose (Glucose Chew Tab) 4-8 Tablets 4 Tabl... UD PRN PO 10/30/17 14:30 11/29/17 14:29 Dextrose (Dextrose 50% 50ML Syringe) 25-50ML 25ML FOR ... UD PRN IV 10/30/17 14:30 11/29/17 14:29 Glucagon (Glucagon Inj) 1 mg UD PRN IM 10/30/17 14:30 11/29/17 14:29 Carbohydrates (Carbohydrates For Hypoglycemia) 15-30 GRAMS 15 grams if BSG 54-69... UD PRN PO 10/30/17 14:30 11/29/17 14:29 Review of Systems Review of Systems Constitutional: No see HPI, No fever, No chills, No frequent headaches, No weight loss, No problem reported Eyes: No see HPI, No blurred vision, No double vision, No eye pain, No loss of night vision, No problem reported Neurological: No see HPI, No dizzy, No passing out, No numbness/tingling, No seizures, No problem reported Endocrine: No see HPI, No excessive thirst, No too hot, No too cold, No tired/ sluggish, No problem reported Gastrointestinal: + abdominal pain Cardiovascular: No see HPI, No heart murmur, No chest pain, No angina, No irregular heartbeat, No palpitations, No swelling ankles/feet, No problem reported Respiratory: + shortness of breath, No wheezing, No coughing up blood, No chronic cough, No problem reported Skin: No see HPI, No rash, No boils, No dry skin, No problem reported Musculoskeletal: No see HPI, No joint pain, No neck pain, No back pain, No arthritis, No problem reported Blood / Lymphatic: No see HPI, No bleed easily, No bruise easily, No swollen glands, No problem reported Ears / Nose / Throat: No see HPI, No hearing loss, No sinus, No hoarse voice, No sore throat, No problem reported Psychologic / Mental: No see HPI, No nervous, No trouble remembering, No difficulty sleeping, No problem reported Male : + problem reported All Other Systems: Reviewed and Negative Physical Exam Vital Signs: Vital Signs Past 12 Hours Date Time Temp Pulse Resp B/P (MAP) Pulse Ox O2 Delivery O2 Flow Rate FiO2 10/31/17 08:00 Room Air 10/31/17 08:00 Room Air 10/31/17 06:28 36.4 62 18 125/74 (91) 94 Room Air 10/31/17 04:18 Room Air 10/31/17 03:16 37.0 66 16 105/69 (81) 98 Room Air 10/31/17 00:28 Room Air 10/30/17 23:26 36.3 71 16 102/66 (78) 97 Physical Exam: General Appearance: WD/WN, no apparent distress Eyes: bilateral eyes normal inspection ENT: hearing grossly normal Neck: no adenopathy Respiratory/Chest: no respiratory distress, no accessory muscle use Cardiovascular: regular rate, rhythm Gastrointestinal: Abdomen: normal abdomen Bladder: normal bladder (Wills catheter in place, clear yellow urine) Extremities: non-tender Neurologic/Psychiatric: alert, normal mood/affect, oriented x 3 Skin: warm/dry Lymphatic: no adenopathy Assessment & Plan Assessment & Plan Obstructive uropathy secondary to urinary retention Continue Wills catheter for now He has had relatively extensive workup in the past including cystoscopy and urodynamics I have reviewed the studies, and feel that he may warrant further evaluation as an outpatient following discharge as his cystoscopic findings and urodynamic findings are somewhat discordant For the time being, the Wills catheter is the treatment of choice and will remain in place until we see him as an outpatient
--- NOTE | 2017-10-31 10:38 | Nephrology Consultation ---
Nephrology Consultation Date & Providers Date of Consultation: October 31, 2017. Primary Care Provider: [place] Referring Provider: Reason for Consultation Acute kidney injury History of Present Illness Mr. Gonzalez is a 62 year old white male who is seen at the request of Dr. Hodges for evaluation of JOLLY. Medical records in the EMR were reviewed and are summarized as follows: Mr. Gonzalez's PCP is Dr. Ocasio. The patient has advanced Parkinson's disease and a neurogenic bladder. 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 He has recently been a resident of [facility]. Mr. Gonzalez reports that he has undergone an extensive Urology evaluation in the past and has had a chronic indwelling robert catheter. This was removed approximately one year ago and he had been voiding on his own. Recently at [facility] laboratory studies were obtained. Creatinine was noted to have risen from 1.0 to 4.4 and patient was found to be hyperkalemic. Mr. Gonzalez was transferred to [facility] yesterday afternoon. He drained 2100 cc urine following robert catheter insertion. Kayexelate was administered to correct his hyperkalemia and Spironolactone and Lisinopril were stopped. Past Medical/Surgical History Medical: # Parkinson's disease # Neurogenic bladder # AODM # HTN # h/o DVT with PE Allergies Coded Allergies: Penicillins (Verified Allergy, Severe, 10/30/17) SEVERE RXN PER PT Cephalosporins (Verified Allergy, Unknown, 10/30/17) Sulfamethoxazole w/Trimethoprim (Verified Allergy, Unknown, ., 10/30/17) TAKES LASIX AT HOME Lisinopril (Verified Adverse Reaction, Intermediate, Cough, 10/30/17) Inpatient Medications Current Inpatient Medications Medications (Trade) Dose Ordered Sig/Apryl Route Start Time Stop Time Status Last Admin Dose Admin Sodium Chloride 1,000 ml @ 75 mls/hr [id number] IV 10/30/17 13:50 11/29/17 13:49 10/31/17 03:44 75 MLS/HR Acetaminophen (Tylenol Tab) 650 mg Q4H PRN PO 10/30/17 14:00 11/29/17 13:59 Allopurinol (Zyloprim Tab) 100 mg DAILY PO 10/31/17 09:00 11/30/17 08:59 5/19/18 07:49 100 MG Amantadine HCl (Symmetrel Cap) 100 mg BID PO 10/30/17 21:00 11/29/17 20:59 10/31/17 07:49 100 MG Amlodipine Besylate (Norvasc Tab) 5 mg DAILY PO 10/31/17 09:00 11/30/17 08:59 10/31/17 07:49 5 MG Apixaban (Eliquis Tab) 2.5 mg BID PO 10/30/17 21:00 11/29/17 20:59 10/31/17 07:49 2.5 MG Ascorbic Acid (Vitamin C Tab) 500 mg QAM PO 10/31/17 09:00 11/30/17 08:59 10/31/17 07:48 500 MG Carbidopa/Levodopa (Sinemet Cr 50/ 200MG Tab) 1 tab BID PO 10/30/17 21:00 11/29/17 20:59 10/31/17 07:49 1 TAB Fluoxetine HCl (Prozac Cap) 40 mg DAILY PO 10/31/17 09:00 11/30/17 08:59 10/31/17 07:49 40 MG Isosorbide Mononitrate (Imdur Ext Rel Tab) 30 mg QAM PO 10/31/17 09:00 11/30/17 08:59 10/31/17 07:49 30 MG Metoprolol Succinate (Toprol Xl Tab) 12.5 mg DAILY PO 10/31/17 09:00 11/30/17 08:59 10/31/17 07:50 12.5 MG Mirabegron (Myrbetriq Er) 50 mg DAILY PO 10/31/17 09:00 11/30/17 08:59 10/31/17 07:49 50 MG Oxycodone/ Acetaminophen (Percocet 5-325mg Tab) 1 tab Q4H PRN PO 10/30/17 14:00 11/13/17 13:59 Pregabalin (Lyrica Cap) 300 mg BID PO 10/30/17 21:00 11/29/17 20:59 10/31/17 07:48 300 MG Ranitidine HCl (zANTac TAB) 150 mg HS PO 10/30/17 21:00 11/29/17 20:59 10/30/17 21:50 150 MG Simvastatin (Zocor Tab) 20 mg QPM PO 10/30/17 21:00 11/29/17 20:59 10/30/17 21:50 20 MG Tamsulosin HCl (Flomax Cap) 0.4 mg DAILY PO 10/31/17 09:00 11/30/17 08:59 10/31/17 07:49 0.4 MG Zolpidem Tartrate (Ambien Tab) 10 mg HS PRN PO 10/30/17 14:00 11/29/17 13:59 Miscellaneous Information (Order Awaiting Action) 1 ea QS N/A 10/30/17 16:00 11/29/17 15:59 10/30/17 22:50 1 EA Ferrous Sulfate (Feosol Tab) 325 mg DAILY PO 10/31/17 09:00 11/30/17 08:59 10/31/17 07:48 325 MG Insulin Glargine (Lantus Solostar Pen) 30 units BID SC 10/31/17 09:00 11/30/17 08:59 10/31/17 07:47 30 UNITS Insulin Aspart (novoLOG ASPART) SLIDING SCALE If C... ACHS SC 10/30/17 16:00 11/29/17 15:59 Glucose (Glucose 40% Gel) 15-30 GRAMS 15 GRAMS... UD PRN PO 10/30/17 14:30 11/29/17 14:29 Glucose (Glucose Chew Tab) 4-8 Tablets 4 Tabl... UD PRN PO 10/30/17 14:30 11/29/17 14:29 Dextrose (Dextrose 50% 50ML Syringe) 25-50ML 25ML FOR ... UD PRN IV 10/30/17 14:30 11/29/17 14:29 Glucagon (Glucagon Inj) 1 mg UD PRN IM 10/30/17 14:30 11/29/17 14:29 Carbohydrates (Carbohydrates For Hypoglycemia) 15-30 GRAMS 15 grams if BSG 54-69... UD PRN PO 10/30/17 14:30 11/29/17 14:29 Family History Cancer Diabetes mellitus FH: heart disease Hypertension Negative for CKD / ESRD Social History Smoking Status: Never Smoker Smokeless Tobacco Use: No Alcohol Use: none Drug Use: none Marital Status: Housing Status: fpc (rehab at [facility]) Occupation: disabled , medically disabled Review of Systems Constitutional: No fever Respiratory: No shortness of breath Cardiovascular: No chest pain Abdomen: No pain, No nausea, No vomiting Genitourinary - Male: No hematuria A complete review of systems was performed. Pertinent positives are noted above. All other systems are negative. Physical Exam Date Time Temp Pulse Resp B/P (MAP) Pulse Ox O2 Delivery O2 Flow Rate FiO2 10/31/17 08:00 Room Air 10/31/17 08:00 Room Air 10/31/17 06:28 36.4 62 18 125/74 (91) 94 Room Air 10/31/17 04:18 Room Air 10/31/17 03:16 37.0 66 16 105/69 (81) 98 Room Air 10/31/17 00:28 Room Air 10/30/17 23:26 36.3 71 16 102/66 (78) 97 10/30/17 20:00 100 Room Air 10/30/17 19:22 36.5 71 22 123/68 (86) 100 Room Air 10/30/17 15:38 36.4 70 20 128/70 (89) 98 Room Air 10/30/17 15:15 36.4 20 128/70 98 Room Air 10/30/17 15:12 73 118/72 97 10/30/17 13:11 76 120/68 99 Room Air 10/30/17 12:20 78 122/65 99 Room Air 10/30/17 12:13 80 10/30/17 11:25 36.4 83 126/67 100 Room Air 10/30/17 11:25 99 Room Air General Appearance: no apparent distress Head: normocephalic, atraumatic Eyes: PERRL Neck: no adenopathy Respiratory/Chest: lungs clear Cardiovascular: regular rate, rhythm Abdomen/GI: normal bowel sounds, non tender, soft Genitourinary - Male: + pertinent finding (robert catheter in place draining clear yellow urine) Extremities/Musculoskelatal: no pedal edema Neurologic/Psych: alert Laboratory Results Last 24 Hours Test 10/30/17 11:50 10/30/17 16:21 10/30/17 19:19 10/30/17 20:14 White Blood Count 9.78 K/uL Red Blood Count 4.60 M/uL Hemoglobin 13.4 g/dL Hematocrit 40.0 % Mean Corpuscular Volume 87.0 fL Mean Corpuscular Hemoglobin 29.1 pg Mean Corpuscular Hemoglobin Concent 33.5 g/dl Platelet Count 153 K/uL Mean Platelet Volume 10.3 fL Neutrophils (%) (Auto) 77.8 % Lymphocytes (%) (Auto) 14.2 % Monocytes (%) (Auto) 6.9 % Eosinophils (%) (Auto) 0.8 % Basophils (%) (Auto) 0.1 % Neutrophils # (Auto) 7.61 K/uL Lymphocytes # (Auto) 1.39 K/uL Monocytes # (Auto) 0.67 K/uL Eosinophils # (Auto) 0.08 K/uL Basophils # (Auto) 0.01 K/uL RDW Standard Deviation 43.9 fL RDW Coefficient of Variation 13.9 % Immature Granulocyte % (Auto) 0.2 % Immature Granulocyte # (Auto) 0.02 K/uL Prothrombin Time 10.9 SECONDS Prothromb Time International Ratio 1.0 Activated Partial Thromboplast Time 29.3 SECONDS Partial Thromboplastin Ratio 1.1 Urine Color YELLOW Urine Appearance CLEAR Urine pH 5.0 Urine Specific Plain 1.015 Urine Protein NEG Urine Glucose (UA) NEG Urine Ketones NEG Urine Occult Blood 2+ Urine Nitrite NEG Urine Bilirubin NEG Urine Urobilinogen NEG Urine Leukocyte Esterase NEG Urine WBC (Auto) 0 /hpf Urine RBC (Auto) 0-4 /hpf Urine Hyaline Casts (Auto) 0 /lpf Urine Epithelial Cells (Auto) 0-5 /lpf Urine Bacteria (Auto) NEG Urine Random Sodium 84 mEq/L Sodium Level 139 mmol/L 142 mmol/L Potassium Level 5.5 mmol/L 4.8 mmol/L Chloride Level 105 mmol/L 108 mmol/L Carbon Dioxide Level 25 mmol/L 26 mmol/L Anion Gap 8.0 mmol/L 8.0 mmol/L Blood Urea Nitrogen 128 mg/dl 109 mg/dl Creatinine 4.46 mg/dl 3.65 mg/dl Est Creatinine Clear Calc Drug Dose 21.9 ml/min 26.7 ml/min Estimated GFR () 15.2 19.3 Estimated GFR (Non- 13.1 16.7 BUN/Creatinine Ratio 28.7 29.9 Random Glucose 115 mg/dl 94 mg/dl Calcium Level 9.4 mg/dl 9.1 mg/dl Phosphorus Level 6.0 mg/dl 5.6 mg/dl Magnesium Level 3.1 mg/dl Total Bilirubin 0.4 mg/dl Direct Bilirubin 0.2 mg/dl Aspartate Amino Transf (AST/SGOT) 24 U/L Alanine Aminotransferase (ALT/SGPT) 14 U/L Alkaline Phosphatase 114 U/L Total Creatine Kinase 63 U/L Creatine Kinase MB 1.3 ng/ml Creatine Kinase MB Ratio 2.1 Troponin I < 0.015 ng/ml Pro-B-Type Natriuretic Peptide 148 pg/ml Total Protein 8.1 gm/dl Albumin 3.6 gm/dl Lipase 447 U/L Thyroid Stimulating Hormone (TSH) 2.590 uIu/ml Bedside Glucose 97 mg/dl 104 mg/dl Test 10/31/17 05:17 10/31/17 07:25 10/31/17 08:37 White Blood Count 8.24 K/uL Red Blood Count 4.53 M/uL Hemoglobin 13.3 g/dL Hematocrit 39.9 % Mean Corpuscular Volume 88.1 fL Mean Corpuscular Hemoglobin 29.4 pg Mean Corpuscular Hemoglobin Concent 33.3 g/dl RDW Standard Deviation 45.0 fL RDW Coefficient of Variation 13.9 % Platelet Count 136 K/uL Mean Platelet Volume 10.2 fL Sodium Level 144 mmol/L Potassium Level 4.8 mmol/L Chloride Level 110 mmol/L Carbon Dioxide Level 26 mmol/L Anion Gap 8.0 mmol/L Blood Urea Nitrogen 95 mg/dl Creatinine 2.87 mg/dl Est Creatinine Clear Calc Drug Dose 34.0 ml/min Estimated GFR () 25.8 Estimated GFR (Non- 22.3 BUN/Creatinine Ratio 33.2 Random Glucose 59 mg/dl Calcium Level 9.2 mg/dl Bedside Glucose 74 mg/dl 109 mg/dl Impression (1) Acute kidney injury (2) Hyperkalemia (3) Neurogenic bladder (4) Parkinson's disease (5) Hypertension Recommendations ACUTE KIDNEY INJURY: -- Baseline creatinine has been 1.0 -- Creatinine is trending down and patient is nonoliguric following Robert catheter insertion -- Hold Furosemide, Lisinopril and Spironolactone -- Continue gentle hydration -- Monitor serial PRP HYPERKALEMIA: -- Corrected following relief of urinary obstruction and Kayexelate administration. Will monitor NEUROGENIC BLADDER: -- Urology consultation reviewed this am. Keep Robert catheter in place. Further evaluation as outpatient
[2017-10-31 11:27] VITALS: BP 111/65; PULSE 66; TEMP 36.6; O2SAT 94
[2017-10-31 15:54] VITALS: BP 122/70; PULSE 64; TEMP 36.6; O2SAT 99
[2017-10-31 19:25] VITALS: BP 136/74; PULSE 67; TEMP 36.7; O2SAT 95
[2017-10-31 19:37] LABS: CALCIUM 9.1 mg/dl (8.5-10.1); CREATININE 2.59 mg/dl (0.60-1.40); POTASSIUM 5.2 mmol/L (3.5-5.1)
[2017-10-31] MEDS: RANITIDINE HCL 150 MG TAB PO SCH (20:01)
[2017-10-31] MEDS: SIMVASTATIN 20 MG TAB PO SCH (20:01)
[2017-11-01] VITALS (8 sets, daily range): BP systolic 116–146; BP diastolic 73–80; PULSE 63–85; TEMP 36.3–36.6; O2SAT 96–99
[2017-11-01 06:49] LABS: HEMATOCRIT 39.9 % (42-52); HEMOGLOBIN 13.1 g/dL (14.0-18.0); MEAN CELL VOLUME 89.3 fL (80-100); MEAN CORPUSCULAR HEMOGLOBIN 29.3 pg (25-34); MEAN CORPUSCULAR HGB CONC 32.8 g/dl (32-36); MEAN PLATELET VOLUME 10.3 fL (7.4-10.4); PLATELET COUNT 132 K/uL (130-400); RED CELL DISTRIBUTION WIDTH SD 45.8 fL (36.4-46.3); WHITE BLOOD COUNT 10.04 K/uL (4.8-10.8)
[2017-11-01 06:58] LABS: CALCIUM 9.3 mg/dl (8.5-10.1); CREATININE 2.14 mg/dl (0.60-1.40); POTASSIUM 4.6 mmol/L (3.5-5.1)
[2017-11-01] MEDS: INSULIN ASPART 100 UNITS/ML 3 ML PEN SC SCH ×4 (07:00→20:43)
[2017-11-01] MEDS: SODIUM CHLORIDE 0.9% 1000ML 1,000 ML IV SCH ×2 (07:03→20:40)
[2017-11-01] MEDS: CARBOHYDRATES FOR HYPOGLYCEMIA PO PRN ×2 (07:04→07:21)
[2017-11-01] MEDS: AMLODIPINE BESYLATE 5 MG TAB PO SCH (07:45)
[2017-11-01] MEDS: FERROUS SULFATE 325 MG TAB PO SCH (07:45)
[2017-11-01] MEDS: ASCORBIC ACID 500 MG TAB PO SCH (07:45)
[2017-11-01] MEDS: APIXABAN 2.5 MG TAB PO SCH ×2 (07:45→20:41)
[2017-11-01] MEDS: FLUOXETINE HCL 20 MG CAP PO SCH (07:45)
[2017-11-01] MEDS: TAMSULOSIN HCL 0.4 MG CAP PO SCH (07:45)
[2017-11-01] MEDS: AMANTADINE HCL 100 MG CAP PO SCH ×2 (07:46→20:42)
[2017-11-01] MEDS: METOPROLOL SUCC 25MG EXT REL TAB PO SCH (07:46)
[2017-11-01] MEDS: MIRABEGRON ER 25 MG TAB PO SCH (07:46)
[2017-11-01] MEDS: ALLOPURINOL 100 MG TAB PO SCH (07:46)
[2017-11-01] MEDS: ISOSORBIDE MONONITRATE 30 MG TABCR PO SCH (07:46)
[2017-11-01] MEDS: CARBIDOPA/LEVODOPA 50/200MG EXT REL TAB PO SCH ×2 (07:46→20:42)
[2017-11-01] MEDS: PREGABALIN 150 MG CAP PO SCH ×2 (07:48→20:40)
[2017-11-01] MEDS: AVODART - ORDER AWAITING ACTION SCH ×3 (08:00→23:06)
[2017-11-01] MEDS ORDERED: INSULIN GLARGINE SOLOSTAR 100 UNITS/ML 3 ML PEN SC SCH (09:00)
--- NOTE | 2017-11-01 09:09 | Hospitalist Progress Note ---
Hospitalist Progress Note Date of Service November 01, 2017. Subjective Pt evaluation today including: conversation w/ patient, physical exam, lab review, review of inpatient medication list Patient seen and evaluated. No acute events overnight. Sinus rhythm on monitor. Cr continues to improve. No findings suggestive of congestive failure at this time. Verbalizes no complaints. No discomfort with Wills placement. BSGs were low this AM and he reports he has only been using a sliding scale at home. Will D/C Lantus and just cover with sliding scale to see coverage he needs and prevent hypoglycemia. Constitutional: No fever, No chills Respiratory: No cough, No shortness of breath Cardiovascular: No chest pain, No orthopnea Abdomen: No pain, No nausea, No vomiting, No diarrhea, No constipation Musculoskeletal: No calf pain Male : No dysuria Heme: No abnormal bleeding/bruising Medications Current Inpatient Medications Medications (Trade) Dose Ordered Sig/Apryl Route Start Time Stop Time Status Last Admin Dose Admin Sodium Chloride 1,000 ml @ 75 mls/hr [id number] IV 10/30/17 13:50 11/29/17 13:49 11/01/17 07:03 75 MLS/HR Acetaminophen (Tylenol Tab) 650 mg Q4H PRN PO 10/30/17 14:00 11/29/17 13:59 Allopurinol (Zyloprim Tab) 100 mg DAILY PO 10/31/17 09:00 11/30/17 08:59 11/01/17 07:46 100 MG Amantadine HCl (Symmetrel Cap) 100 mg BID PO 10/30/17 21:00 11/29/17 20:59 11/01/17 07:46 100 MG Amlodipine Besylate (Norvasc Tab) 5 mg DAILY PO 10/31/17 09:00 11/30/17 08:59 11/01/17 07:45 5 MG Apixaban (Eliquis Tab) 2.5 mg BID PO 10/30/17 21:00 11/29/17 20:59 11/01/17 07:45 2.5 MG Ascorbic Acid (Vitamin C Tab) 500 mg QAM PO 10/31/17 09:00 11/30/17 08:59 11/01/17 07:45 500 MG Carbidopa/Levodopa (Sinemet Cr 50/ 200MG Tab) 1 tab BID PO 10/30/17 21:00 6/17/18 20:59 11/01/17 07:46 1 TAB Fluoxetine HCl (Prozac Cap) 40 mg DAILY PO 10/31/17 09:00 11/30/17 08:59 11/01/17 07:45 40 MG Isosorbide Mononitrate (Imdur Ext Rel Tab) 30 mg QAM PO 10/31/17 09:00 11/30/17 08:59 11/01/17 07:46 30 MG Metoprolol Succinate (Toprol Xl Tab) 12.5 mg DAILY PO 10/31/17 09:00 11/30/17 08:59 11/01/17 07:46 12.5 MG Mirabegron (Myrbetriq Er) 50 mg DAILY PO 10/31/17 09:00 11/30/17 08:59 11/01/17 07:46 50 MG Oxycodone/ Acetaminophen (Percocet 5-325mg Tab) 1 tab Q4H PRN PO 10/30/17 14:00 11/13/17 13:59 Pregabalin (Lyrica Cap) 300 mg BID PO 10/30/17 21:00 11/29/17 20:59 11/01/17 07:48 300 MG Ranitidine HCl (zANTac TAB) 150 mg HS PO 10/30/17 21:00 11/29/17 20:59 10/31/17 20:01 150 MG Simvastatin (Zocor Tab) 20 mg QPM PO 10/30/17 21:00 11/29/17 20:59 10/31/17 20:01 20 MG Tamsulosin HCl (Flomax Cap) 0.4 mg DAILY PO 10/31/17 09:00 11/30/17 08:59 11/01/17 07:45 0.4 MG Zolpidem Tartrate (Ambien Tab) 10 mg HS PRN PO 10/30/17 14:00 11/29/17 13:59 Miscellaneous Information (Order Awaiting Action) 1 ea QS N/A 10/30/17 16:00 11/29/17 15:59 10/30/17 22:50 1 EA Ferrous Sulfate (Feosol Tab) 325 mg DAILY PO 10/31/17 09:00 11/30/17 08:59 11/01/17 07:45 325 MG Insulin Aspart (novoLOG ASPART) SLIDING SCALE If C... ACHS SC 10/30/17 16:00 11/29/17 15:59 Glucose (Glucose 40% Gel) 15-30 GRAMS 15 GRAMS... UD PRN PO 10/30/17 14:30 11/29/17 14:29 Glucose (Glucose Chew Tab) 4-8 Tablets 4 Tabl... UD PRN PO 10/30/17 14:30 11/29/17 14:29 Dextrose (Dextrose 50% 50ML Syringe) 25-50ML 25ML FOR ... UD PRN IV 10/30/17 14:30 11/29/17 14:29 Glucagon (Glucagon Inj) 1 mg UD PRN IM 10/30/17 14:30 11/29/17 14:29 Carbohydrates (Carbohydrates For Hypoglycemia) 15-30 GRAMS 15 grams if BSG 54-69... UD PRN PO 10/30/17 14:30 11/29/17 14:29 11/01/17 07:21 15 GM Objective Vital Signs Date Time Temp Pulse Resp B/P (MAP) Pulse Ox O2 Delivery O2 Flow Rate FiO2 11/01/17 07:32 36.4 68 18 134/73 (93) 98 Room Air 11/01/17 04:00 Room Air 11/01/17 03:33 36.3 66 18 135/74 (94) 98 Room Air 11/01/17 00:06 36.5 63 18 124/78 (93) 97 Room Air 10/31/17 23:59 Room Air 10/31/17 20:00 Room Air 10/31/17 19:25 36.7 67 20 136/74 (94) 95 Room Air 10/31/17 16:00 Room Air 10/31/17 15:54 36.6 64 18 122/70 (87) 99 Room Air 10/31/17 12:00 Room Air 10/31/17 11:27 36.6 66 16 111/65 (80) 94 Room Air Physical Exam General Appearance: WD/WN, no apparent distress Eyes: sclerae normal ENT: hearing grossly normal Neck: supple, no JVD, trachea midline Respiratory/Chest: lungs clear, normal breath sounds, no respiratory distress, no accessory muscle use Cardiovascular: regular rate, rhythm, no gallop, no murmur Abdomen: normal bowel sounds, non tender, soft Extremities: no pedal edema Neurologic/Psychiatric: alert Skin: normal color, warm/dry Laboratory Results Last 24 Hours Test 10/31/17 11:04 10/31/17 16:35 10/31/17 19:04 10/31/17 20:35 Bedside Glucose 122 mg/dl 75 mg/dl 114 mg/dl Sodium Level 142 mmol/L Potassium Level 5.2 mmol/L Chloride Level 109 mmol/L Carbon Dioxide Level 27 mmol/L Anion Gap 6.0 mmol/L Blood Urea Nitrogen 78 mg/dl Creatinine 2.59 mg/dl Est Creatinine Clear Calc Drug Dose 37.7 ml/min Estimated GFR () 29.2 Estimated GFR (Non- 25.2 BUN/Creatinine Ratio 30.2 Random Glucose 117 mg/dl Calcium Level 9.1 mg/dl Test 11/01/17 05:12 11/01/17 07:01 11/01/17 07:18 11/01/17 07:41 White Blood Count 10.04 K/uL Red Blood Count 4.47 M/uL Hemoglobin 13.1 g/dL Hematocrit 39.9 % Mean Corpuscular Volume 89.3 fL Mean Corpuscular Hemoglobin 29.3 pg Mean Corpuscular Hemoglobin Concent 32.8 g/dl RDW Standard Deviation 45.8 fL RDW Coefficient of Variation 14.0 % Platelet Count 132 K/uL Mean Platelet Volume 10.3 fL Sodium Level 144 mmol/L Potassium Level 4.6 mmol/L Chloride Level 113 mmol/L Carbon Dioxide Level 25 mmol/L Anion Gap 6.0 mmol/L Blood Urea Nitrogen 62 mg/dl Creatinine 2.14 mg/dl Est Creatinine Clear Calc Drug Dose 44.9 ml/min Estimated GFR () 36.8 Estimated GFR (Non- 31.8 BUN/Creatinine Ratio 28.9 Random Glucose 53 mg/dl Calcium Level 9.3 mg/dl Magnesium Level 2.3 mg/dl Bedside Glucose 56 mg/dl 59 mg/dl 95 mg/dl Assessment and Plan Mr. Gonzalez is a 62 year old man here for JOLLY due to obstructive uropathy. Acute Kidney Injury on CKD Stage II: Suspect Obstructive Uropathy with H/O Neurogenic Bladder - Creatinine improving down to 2.1 with baseline around 1.0 - Wills catheter placed and draining adequate clear/yellow urine - no discomfort with placement - UA unremarkable except for occult blood - cx with no growth - Lasix, Losartan, and Spironolactone remain on hold at this time - NSS at 75 mL/hr - no evidence of congestive failure on examination today - Myrbetriq 50 mg daily and Flomax 0.4 mg daily - Urology and Nephrology consulted - appreciate input -- Planning on outpatient evaluation from Urology but current plan is continue Wills catheter Hyperkalemia: RESOLVED - Continue to monitor - no arrhythmia issues noted Parkinson's Disease: STABLE - Amantadine 100 mg BID and Sinemet 1 tab BID HTN/HLD and Grade I Diastolic Dysfunction: STABLE - Norvasc 5 mg daily, Imdur 30 mg daily, Toprol XL 12.5 mg daily - Simvastatin 20 mg daily T2DM with Peripheral Neuropathy: A1c 7.9 - Had hypoglycemia this AM - reports morning BSGs at home are normally 80-90s; Reports only utilizing sliding scale at home - Stop Lantus and cover with SSI to determine insulin needs - Lyrica 300 mg BID H/O DVT/PE: - Eliquis 2.5 mg BID DVT Prophylaxis: Eliquis Code Status: DNR Disposition: PT/OT - Recently at [facility] to work on weakness - possibly return back to finish treatment - hopeful D/C next 1-2 days pending Cr improvement Continued [facility] stay due to: multiple IV medications needed Discharge planning: residential facility
[2017-11-01] MEDS ORDERED: DOCUSATE SODIUM 100 MG CAP PO ONE (10:13)
[2017-11-01] MEDS ORDERED: POLYETHYLENE (MIRALAX) 17 GM PACK PO PRN (10:15)
--- NOTE | 2017-11-01 10:24 | Nephrology Progress Note ---
Nephrology Progress Note Date of Service November 01, 2017. Chief Complaint Acute kidney injury Subjective Mr. Gonzalez was seen & examined in his hospital room this morning. Wills catheter is in place draining clear yellow urine. Mr. Gonzalez voices no medical concerns. Review of Systems Constitutional: No fever Cardiovascular: No chest pain Respiratory: No dyspnea at rest Abdomen: No pain, No nausea, No vomiting Extremities: + leg edema A complete review of systems was performed. Pertinent positives are noted above. All other systems are negative. Vital Signs Last 8 Hrs Date Time Temp Pulse Resp B/P (MAP) Pulse Ox O2 Delivery O2 Flow Rate FiO2 11/01/17 10:11 36.4 68 18 98 11/01/17 08:00 Room Air 11/01/17 07:32 36.4 68 18 134/73 (93) 98 Room Air 11/01/17 04:00 Room Air 11/01/17 03:33 36.3 66 18 135/74 (94) 98 Room Air Last Recorded Weight Weight (Kilograms): 118.700 Physical Exam General Appearance: no apparent distress Head: normocephalic, atraumatic Eyes: PERRL, EOMI Neck: no adenopathy Respiratory/Chest: lungs clear, no respiratory distress Cardiovascular: regular rate, rhythm Abdomen/GI: normal bowel sounds, non tender, soft Extremities/Musculoskelatal: + pertinent finding (trace pretibial edema) Neurologic/Psych: alert, oriented x 3 Family History Cancer Diabetes mellitus FH: heart disease Hypertension Negative for CKD / ESRD Social History Smoking Status: Never smoker Smokeless Tobacco Use: No Alcohol Use: none Drug Use: none Marital Status: Housing Status: long term (rehab at [facility]) Occupation: disabled , medically disabled Laboratory Results Past 24 Hours 11/01/17 05:12 10/31/17 19:04 11/01/17 05:12 Test 10/31/17 11:04 10/31/17 16:35 10/31/17 19:04 10/31/17 20:35 Bedside Glucose 122 mg/dl (70-99) 75 mg/dl (70-99) 114 mg/dl (70-99) Anion Gap 6.0 mmol/L (3-11) Est Creatinine Clear Calc Drug Dose 37.7 ml/min Estimated GFR () 29.2 Estimated GFR (Non- 25.2 BUN/Creatinine Ratio 30.2 (10-20) Calcium Level 9.1 mg/dl (8.5-10.1) Test 11/01/17 05:12 11/01/17 07:01 11/01/17 07:18 11/01/17 07:41 Red Blood Count 4.47 M/uL (4.7-6.1) Mean Corpuscular Volume 89.3 fL (80-100) Mean Corpuscular Hemoglobin 29.3 pg (25-34) Mean Corpuscular Hemoglobin Concent 32.8 g/dl (32-36) RDW Standard Deviation 45.8 fL (36.4-46.3) RDW Coefficient of Variation 14.0 % (11.5-14.5) Mean Platelet Volume 10.3 fL (7.4-10.4) Anion Gap 6.0 mmol/L (3-11) Est Creatinine Clear Calc Drug Dose 44.9 ml/min Estimated GFR () 36.8 Estimated GFR (Non- 31.8 BUN/Creatinine Ratio 28.9 (10-20) Calcium Level 9.3 mg/dl (8.5-10.1) Magnesium Level 2.3 mg/dl (1.8-2.4) Bedside Glucose 56 mg/dl (70-99) 59 mg/dl (70-99) 95 mg/dl (70-99) Allergies Coded Allergies: Penicillins (Verified Allergy, Severe, 10/30/17) SEVERE RXN PER PT Cephalosporins (Verified Allergy, Unknown, 10/30/17) Sulfamethoxazole w/Trimethoprim (Verified Allergy, Unknown, ., 10/30/17) TAKES LASIX AT HOME Lisinopril (Verified Adverse Reaction, Intermediate, Cough, 10/30/17) Medications Current Inpatient Medications Medications (Trade) Dose Ordered Sig/Apryl Route Start Time Stop Time Status Last Admin Dose Admin Sodium Chloride 1,000 ml @ 75 mls/hr [id number] IV 10/30/17 13:50 11/29/17 13:49 11/01/17 07:03 75 MLS/HR Acetaminophen (Tylenol Tab) 650 mg Q4H PRN PO 10/30/17 14:00 11/29/17 13:59 Allopurinol (Zyloprim Tab) 100 mg DAILY PO 10/31/17 09:00 11/30/17 08:59 11/01/17 07:46 100 MG Amantadine HCl (Symmetrel Cap) 100 mg BID PO 10/30/17 21:00 11/29/17 20:59 11/01/17 07:46 100 MG Amlodipine Besylate (Norvasc Tab) 5 mg DAILY PO 10/31/17 09:00 11/30/17 08:59 11/01/17 07:45 5 MG Apixaban (Eliquis Tab) 2.5 mg BID PO 10/30/17 21:00 11/29/17 20:59 11/01/17 07:45 2.5 MG Ascorbic Acid (Vitamin C Tab) 500 mg QAM PO 10/31/17 09:00 11/30/17 08:59 11/01/17 07:45 500 MG Carbidopa/Levodopa (Sinemet Cr 50/ 200MG Tab) 1 tab BID PO 10/30/17 21:00 11/29/17 20:59 11/01/17 07:46 1 TAB Fluoxetine HCl (Prozac Cap) 40 mg DAILY PO 10/31/17 09:00 11/30/17 08:59 11/01/17 07:45 40 MG Isosorbide Mononitrate (Imdur Ext Rel Tab) 30 mg QAM PO 10/31/17 09:00 11/30/17 08:59 11/01/17 07:46 30 MG Metoprolol Succinate (Toprol Xl Tab) 12.5 mg DAILY PO 10/31/17 09:00 11/30/17 08:59 11/01/17 07:46 12.5 MG Mirabegron (Myrbetriq Er) 50 mg DAILY PO 10/31/17 09:00 11/30/17 08:59 11/01/17 07:46 50 MG Oxycodone/ Acetaminophen (Percocet 5-325mg Tab) 1 tab Q4H PRN PO 10/30/17 14:00 11/13/17 13:59 Pregabalin (Lyrica Cap) 300 mg BID PO 10/30/17 21:00 11/29/17 20:59 11/01/17 07:48 300 MG Ranitidine HCl (zANTac TAB) 150 mg HS PO 10/30/17 21:00 11/29/17 20:59 10/31/17 20:01 150 MG Simvastatin (Zocor Tab) 20 mg QPM PO 10/30/17 21:00 11/29/17 20:59 10/31/17 20:01 20 MG Tamsulosin HCl (Flomax Cap) 0.4 mg DAILY PO 10/31/17 09:00 11/30/17 08:59 11/01/17 07:45 0.4 MG Zolpidem Tartrate (Ambien Tab) 10 mg HS PRN PO 10/30/17 14:00 11/29/17 13:59 Miscellaneous Information (Order Awaiting Action) 1 ea QS N/A 10/30/17 16:00 11/29/17 15:59 10/30/17 22:50 1 EA Ferrous Sulfate (Feosol Tab) 325 mg DAILY PO 10/31/17 09:00 11/30/17 08:59 11/01/17 07:45 325 MG Insulin Aspart (novoLOG ASPART) SLIDING SCALE If C... ACHS SC 10/30/17 16:00 11/29/17 15:59 Glucose (Glucose 40% Gel) 15-30 GRAMS 15 GRAMS... UD PRN PO 10/30/17 14:30 11/29/17 14:29 Glucose (Glucose Chew Tab) 4-8 Tablets 4 Tabl... UD PRN PO 10/30/17 14:30 11/29/17 14:29 Dextrose (Dextrose 50% 50ML Syringe) 25-50ML 25ML FOR ... UD PRN IV 10/30/17 14:30 11/29/17 14:29 Glucagon (Glucagon Inj) 1 mg UD PRN IM 10/30/17 14:30 11/29/17 14:29 Carbohydrates (Carbohydrates For Hypoglycemia) 15-30 GRAMS 15 grams if BSG 54-69... UD PRN PO 10/30/17 14:30 11/29/17 14:29 11/01/17 07:21 15 GM Polyethylene (Miralax Powder Packet) 17 gm DAILY PRN PO 11/01/17 10:15 12/01/17 10:14 UNV Docusate Sodium (coLACE CAP) 100 mg BID PO 11/01/17 21:00 12/01/17 20:59 UNV Docusate Sodium (coLACE CAP) 100 mg 1013 ONCE PO 11/01/17 10:13 11/01/17 10:14 UNV Impression (1) Acute kidney injury (2) Hyperkalemia (3) Neurogenic bladder (4) Parkinson's disease (5) Hypertension Recommendations ACUTE KIDNEY INJURY: -- Baseline creatinine has been 1.0 -- Creatinine is trending down and patient is nonoliguric following Wills catheter insertion -- Hold Furosemide, Lisinopril and Spironolactone -- Continue gentle hydration -- Monitor serial PRP HYPERKALEMIA: -- Corrected following relief of urinary obstruction and Kayexelate administration. Will monitor NEUROGENIC BLADDER: -- Urology consultation 10/31: Keep Wills catheter in place. Further evaluation as outpatient
[2017-11-01] MEDS: DOCUSATE SODIUM 100 MG CAP PO SCH (20:41)
[2017-11-01] MEDS: SIMVASTATIN 20 MG TAB PO SCH (20:42)
[2017-11-01] MEDS: RANITIDINE HCL 150 MG TAB PO SCH (20:42)
[2017-11-02 06:20] LABS: HEMATOCRIT 38.1 % (42-52); HEMOGLOBIN 12.4 g/dL (14.0-18.0); MEAN CELL VOLUME 90.9 fL (80-100); MEAN CORPUSCULAR HEMOGLOBIN 29.6 pg (25-34); MEAN CORPUSCULAR HGB CONC 32.5 g/dl (32-36); MEAN PLATELET VOLUME 11.1 fL (7.4-10.4); PLATELET COUNT 131 K/uL (130-400); RED CELL DISTRIBUTION WIDTH CV 13.8 % (11.5-14.5); RED CELL DISTRIBUTION WIDTH SD 45.7 fL (36.4-46.3); WHITE BLOOD COUNT 7.12 K/uL (4.8-10.8)
[2017-11-02 06:56] LABS: CREATININE 1.65 mg/dl (0.60-1.40); POTASSIUM 4.6 mmol/L (3.5-5.1)
[2017-11-02] MEDS: AVODART - ORDER AWAITING ACTION SCH ×3 (07:37→23:08)
[2017-11-02] MEDS: TAMSULOSIN HCL 0.4 MG CAP PO SCH (07:43)
[2017-11-02] MEDS: DOCUSATE SODIUM 100 MG CAP PO SCH ×2 (07:43→20:19)
[2017-11-02] MEDS: ISOSORBIDE MONONITRATE 30 MG TABCR PO SCH (07:43)
[2017-11-02] MEDS: FERROUS SULFATE 325 MG TAB PO SCH (07:43)
[2017-11-02] MEDS: APIXABAN 2.5 MG TAB PO SCH ×2 (07:43→20:18)
[2017-11-02] MEDS: AMLODIPINE BESYLATE 5 MG TAB PO SCH (07:44)
[2017-11-02] MEDS: MIRABEGRON ER 25 MG TAB PO SCH (07:44)
[2017-11-02] MEDS: METOPROLOL SUCC 25MG EXT REL TAB PO SCH (07:45)
[2017-11-02] MEDS: AMANTADINE HCL 100 MG CAP PO SCH ×2 (07:45→20:19)
[2017-11-02] MEDS: CARBIDOPA/LEVODOPA 50/200MG EXT REL TAB PO SCH ×2 (07:45→20:17)
[2017-11-02] MEDS: ALLOPURINOL 100 MG TAB PO SCH (07:45)
[2017-11-02] MEDS: FLUOXETINE HCL 20 MG CAP PO SCH (07:45)
[2017-11-02] MEDS: ASCORBIC ACID 500 MG TAB PO SCH (07:45)
[2017-11-02] MEDS: INSULIN ASPART 100 UNITS/ML 3 ML PEN SC SCH ×4 (07:51→21:47)
[2017-11-02] MEDS: PREGABALIN 150 MG CAP PO SCH ×2 (07:53→20:16)
[2017-11-02] MEDS: SODIUM CHLORIDE 0.9% 1000ML 1,000 ML IV SCH (07:55)
--- NOTE | 2017-11-02 09:17 | Progress Note ---
Subjective Date of Service: November 02, 2017. Subjective Pt evaluation today including: conversation w/ patient, chart review, lab review Voiding: robert catheter in place (patent, draining clear, yellow urine ) 62 yo male with UR. Robert catheter remains in place. Pt denies pain this morning. Problem List Medical Problems: (1) Anticoagulated Status: Acute (2) Back pain Status: Acute (3) Soni infection Status: Acute (4) Cephalgia Status: Acute (5) Chest pain, pleuritic Status: Acute (6) Chronic chest pain Status: Acute (7) Complicated UTI (urinary tract infection) Status: Acute (8) Dyspnea on exertion Status: Acute (9) Elevated lactic acid level Status: Acute (10) Elevated troponin Status: Acute (11) Elevated troponin Status: Acute (12) Elevated troponin Status: Acute (13) Fall Status: Acute (14) Head trauma Status: Acute (15) Headache Status: Acute (16) Hemoptysis Status: Acute (17) History of pulmonary embolism Status: Acute (18) HTN (hypertension) Status: Acute (19) Hyperglycemia Status: Acute (20) Left sided chest pain Status: Acute (21) Left sided chest pain Status: Acute (22) Lower abdominal pain Status: Acute (23) Neck pain Status: Acute (24) Neurogenic bladder Status: Acute (25) Non-cardiac chest pain Status: Acute (26) Obstructive uropathy Status: Acute (27) Poorly-controlled hypertension Status: Acute (28) Pyelonephritis Status: Acute (29) Renal failure Status: Acute (30) Sepsis Status: Acute (31) Skin breakdown Status: Acute (32) Spinal stenosis Status: Acute (33) Subtherapeutic international normalized ratio (INR) Status: Acute (34) Tachycardia Status: Acute (35) TIA (transient ischemic attack) Status: Acute (36) Upper respiratory infection with cough and congestion Status: Acute (37) Urinary tract infection Status: Acute (38) UTI (urinary tract infection) Status: Acute (39) UTI (urinary tract infection) Status: Acute (40) Vomiting Status: Acute Review of Systems Constitutional: No fever, No chills Respiratory: No shortness of breath Cardiac: No chest pain Abdomen: No pain, No nausea, No vomiting Male : No dysuria, No hematuria Heme: No abnormal bleeding/bruising Objective Vital Signs Date Time Temp Pulse Resp B/P (MAP) Pulse Ox O2 Delivery O2 Flow Rate FiO2 11/02/17 08:02 Room Air 11/02/17 00:00 Room Air 11/01/17 23:02 36.3 63 18 146/80 (102) 99 Room Air 11/01/17 15:53 96 Room Air 11/01/17 15:41 36.6 69 18 133/75 (94) 96 11/01/17 10:33 36.6 85 18 116/76 (89) 96 11/01/17 10:11 36.4 68 18 98 Physical Exam General Appearance: no apparent distress Eyes: normal inspection ENT: hearing grossly normal Neck: no JVD Respiratory/Chest: no respiratory distress, no accessory muscle use Cardiovascular: no JVD Neurologic/Psychiatric: alert, normal mood/affect, oriented x 3 Skin: normal color Laboratory Results Last 24 Hours Test 11/01/17 17:07 11/01/17 20:27 11/02/17 05:20 11/02/17 06:59 Bedside Glucose 98 mg/dl 128 mg/dl 63 mg/dl White Blood Count 7.12 K/uL Red Blood Count 4.19 M/uL Hemoglobin 12.4 g/dL Hematocrit 38.1 % Mean Corpuscular Volume 90.9 fL Mean Corpuscular Hemoglobin 29.6 pg Mean Corpuscular Hemoglobin Concent 32.5 g/dl RDW Standard Deviation 45.7 fL RDW Coefficient of Variation 13.8 % Platelet Count 131 K/uL Mean Platelet Volume 11.1 fL Sodium Level 145 mmol/L Potassium Level 4.6 mmol/L Chloride Level 113 mmol/L Carbon Dioxide Level 27 mmol/L Anion Gap 5.0 mmol/L Blood Urea Nitrogen 44 mg/dl Creatinine 1.65 mg/dl Est Creatinine Clear Calc Drug Dose 58.3 ml/min Estimated GFR () 50.4 Estimated GFR (Non- 43.5 BUN/Creatinine Ratio 26.5 Random Glucose 49 mg/dl Calcium Level 9.0 mg/dl Test 11/02/17 08:10 Bedside Glucose 84 mg/dl Assessment and Plan A/P: Urinary retention Continue Flomax. Continue Myrbetriq. Plan to leave robert catheter in place for now. D/c home with robert. Will arrange for outpatient repeat cysto with Dr. Case. No further management at this time. Recall PRN issues. Thanks for allowing us to participate in this pt's care. Continued [facility] stay due to: multiple IV medications needed Discharge planning: residential facility
--- NOTE | 2017-11-02 09:33 | Nephrology Progress Note ---
Nephrology Progress Note Date of Service November 02, 2017. Chief Complaint Acute kidney injury Subjective Mr. Gonzalez was seen & examined in his hospital room this morning. He reports no complications overnight. He voices no medical concerns. Review of Systems Constitutional: No fever Cardiovascular: No chest pain Respiratory: No dyspnea at rest Abdomen: No pain, No nausea, No vomiting Extremities: No leg edema A complete review of systems was performed. Pertinent positives are noted above. All other systems are negative. Vital Signs Last 8 Hrs Date Time Temp Pulse Resp B/P (MAP) Pulse Ox O2 Delivery O2 Flow Rate FiO2 11/02/17 08:02 Room Air Last Recorded Weight Weight (Kilograms): 118.700 Physical Exam General Appearance: no apparent distress Head: normocephalic, atraumatic Eyes: PERRL, EOMI Neck: supple Respiratory/Chest: lungs clear, no respiratory distress Cardiovascular: regular rate, rhythm Abdomen/GI: normal bowel sounds, non tender, soft Genitourinary - Male: + pertinent finding (robert catheter in place draining clear yellow urine) Extremities/Musculoskelatal: + pertinent finding (trace pretibial edema) Neurologic/Psych: alert, oriented x 3 Family History Cancer Diabetes mellitus FH: heart disease Hypertension Negative for CKD / ESRD Social History Smoking Status: Never smoker Smokeless Tobacco Use: No Alcohol Use: none Drug Use: none Marital Status: Housing Status: custodial (rehab at [facility]) Occupation: disabled , medically disabled Laboratory Results Past 24 Hours 11/02/17 05:20 11/02/17 05:20 Test 11/01/17 17:07 11/01/17 20:27 11/02/17 05:20 11/02/17 06:59 Bedside Glucose 98 mg/dl (70-99) 128 mg/dl (70-99) 63 mg/dl (70-99) Red Blood Count 4.19 M/uL (4.7-6.1) Mean Corpuscular Volume 90.9 fL (80-100) Mean Corpuscular Hemoglobin 29.6 pg (25-34) Mean Corpuscular Hemoglobin Concent 32.5 g/dl (32-36) RDW Standard Deviation 45.7 fL (36.4-46.3) RDW Coefficient of Variation 13.8 % (11.5-14.5) Mean Platelet Volume 11.1 fL (7.4-10.4) Anion Gap 5.0 mmol/L (3-11) Est Creatinine Clear Calc Drug Dose 58.3 ml/min Estimated GFR () 50.4 Estimated GFR (Non- 43.5 BUN/Creatinine Ratio 26.5 (10-20) Calcium Level 9.0 mg/dl (8.5-10.1) Test 11/02/17 08:10 Bedside Glucose 84 mg/dl (70-99) Allergies Coded Allergies: Penicillins (Verified Allergy, Severe, 10/30/17) SEVERE RXN PER PT Cephalosporins (Verified Allergy, Unknown, 10/30/17) Sulfamethoxazole w/Trimethoprim (Verified Allergy, Unknown, ., 10/30/17) TAKES LASIX AT HOME Lisinopril (Verified Adverse Reaction, Intermediate, Cough, 10/30/17) Medications Current Inpatient Medications Medications (Trade) Dose Ordered Sig/Apryl Route Start Time Stop Time Status Last Admin Dose Admin Acetaminophen (Tylenol Tab) 650 mg Q4H PRN PO 10/30/17 14:00 11/29/17 13:59 Allopurinol (Zyloprim Tab) 100 mg DAILY PO 10/31/17 09:00 11/30/17 08:59 11/02/17 07:45 100 MG Amantadine HCl (Symmetrel Cap) 100 mg BID PO 10/30/17 21:00 11/29/17 20:59 11/02/17 07:45 100 MG Amlodipine Besylate (Norvasc Tab) 5 mg DAILY PO 10/31/17 09:00 11/30/17 08:59 11/02/17 07:44 5 MG Apixaban (Eliquis Tab) 2.5 mg BID PO 10/30/17 21:00 11/29/17 20:59 11/02/17 07:43 2.5 MG Ascorbic Acid (Vitamin C Tab) 500 mg QAM PO 10/31/17 09:00 11/30/17 08:59 11/02/17 07:45 500 MG Carbidopa/Levodopa (Sinemet Cr 50/ 200MG Tab) 1 tab BID PO 10/30/17 21:00 11/29/17 20:59 11/02/17 07:45 1 TAB Fluoxetine HCl (Prozac Cap) 40 mg DAILY PO 10/31/17 09:00 11/30/17 08:59 11/02/17 07:45 40 MG Isosorbide Mononitrate (Imdur Ext Rel Tab) 30 mg QAM PO 10/31/17 09:00 11/30/17 08:59 11/02/17 07:43 30 MG Metoprolol Succinate (Toprol Xl Tab) 12.5 mg DAILY PO 10/31/17 09:00 11/30/17 08:59 11/02/17 07:45 12.5 MG Mirabegron (Myrbetriq Er) 50 mg DAILY PO 10/31/17 09:00 11/30/17 08:59 11/02/17 07:44 50 MG Oxycodone/ Acetaminophen (Percocet 5-325mg Tab) 1 tab Q4H PRN PO 10/30/17 14:00 11/13/17 13:59 Pregabalin (Lyrica Cap) 300 mg BID PO 10/30/17 21:00 11/29/17 20:59 11/02/17 07:53 300 MG Ranitidine HCl (zANTac TAB) 150 mg HS PO 10/30/17 21:00 11/29/17 20:59 11/01/17 20:42 150 MG Simvastatin (Zocor Tab) 20 mg QPM PO 10/30/17 21:00 11/29/17 20:59 11/01/17 20:42 20 MG Tamsulosin HCl (Flomax Cap) 0.4 mg DAILY PO 10/31/17 09:00 11/30/17 08:59 11/02/17 07:43 0.4 MG Zolpidem Tartrate (Ambien Tab) 10 mg HS PRN PO 10/30/17 14:00 11/29/17 13:59 Miscellaneous Information (Order Awaiting Action) 1 ea QS N/A 10/30/17 16:00 11/29/17 15:59 10/30/17 22:50 1 EA Ferrous Sulfate (Feosol Tab) 325 mg DAILY PO 10/31/17 09:00 11/30/17 08:59 11/02/17 07:43 325 MG Insulin Aspart (novoLOG ASPART) SLIDING SCALE If C... ACHS SC 10/30/17 16:00 11/29/17 15:59 Glucose (Glucose 40% Gel) 15-30 GRAMS 15 GRAMS... UD PRN PO 10/30/17 14:30 11/29/17 14:29 11/02/17 07:36 15 GM Glucose (Glucose Chew Tab) 4-8 Tablets 4 Tabl... UD PRN PO 10/30/17 14:30 11/29/17 14:29 Dextrose (Dextrose 50% 50ML Syringe) 25-50ML 25ML FOR ... UD PRN IV 10/30/17 14:30 11/29/17 14:29 Glucagon (Glucagon Inj) 1 mg UD PRN IM 10/30/17 14:30 11/29/17 14:29 Carbohydrates (Carbohydrates For Hypoglycemia) 15-30 GRAMS 15 grams if BSG 54-69... UD PRN PO 10/30/17 14:30 11/29/17 14:29 11/01/17 07:21 15 GM Polyethylene (Miralax Powder Packet) 17 gm DAILY PRN PO 11/01/17 10:15 12/01/17 10:14 Docusate Sodium (coLACE CAP) 100 mg BID PO 11/01/17 20:00 12/01/17 19:59 11/02/17 07:43 100 MG Impression (1) Acute kidney injury (2) Hyperkalemia (3) Neurogenic bladder (4) Parkinson's disease (5) Hypertension Recommendations ACUTE KIDNEY INJURY: -- Baseline creatinine has been 1.0 -- Creatinine is trending down and patient is nonoliguric following Robert catheter insertion -- Blood pressure remains acceptable. Continue to hold Furosemide, Lisinopril and Spironolactone -- Stop IVF and encourage oral nutrition -- Monitor serial PRP -- If discharge is anticipated all follow up can be provided by PCP and Urology HYPERKALEMIA: -- Corrected following relief of urinary obstruction and Kayexelate administration. Will monitor NEUROGENIC BLADDER: -- Urology consultation 10/31: Keep Robert catheter in place. Further evaluation as outpatient
[2017-11-02 10:49] VITALS: BMI 38.6
--- NOTE | 2017-11-02 13:31 | Hospitalist Progress Note ---
Hospitalist Progress Note Date of Service November 02, 2017. Subjective Pt evaluation today including: conversation w/ patient, physical exam, lab review, review of studies, review of inpatient medication list Voiding: robert catheter in place Patient resting in bed. Feeling well. Eating and drinking OK. Concerned about AM hypoglycemia this admission- asymptomatic- will try PM snack. Patient denies any fever, chills, sweats, lightheadedness, dizziness, vision changes, CP, palpitations, edema, SOB, wheezing, cough, abdominal pain, nausea, vomiting, diarrhea, urinary symptoms, melena, numbness/tingling, weakness, muscle/joint pain, anxiety/depression, active bleeding, or new skin discoloration/changes. Medications Current Inpatient Medications Medications (Trade) Dose Ordered Sig/Apryl Route Start Time Stop Time Status Last Admin Dose Admin Acetaminophen (Tylenol Tab) 650 mg Q4H PRN PO 10/30/17 14:00 11/29/17 13:59 Allopurinol (Zyloprim Tab) 100 mg DAILY PO 10/31/17 09:00 11/30/17 08:59 11/02/17 07:45 100 MG Amantadine HCl (Symmetrel Cap) 100 mg BID PO 10/30/17 21:00 11/29/17 20:59 11/02/17 07:45 100 MG Amlodipine Besylate (Norvasc Tab) 5 mg DAILY PO 10/31/17 09:00 11/30/17 08:59 11/02/17 07:44 5 MG Apixaban (Eliquis Tab) 2.5 mg BID PO 10/30/17 21:00 11/29/17 20:59 11/02/17 07:43 2.5 MG Ascorbic Acid (Vitamin C Tab) 500 mg QAM PO 10/31/17 09:00 11/30/17 08:59 11/02/17 07:45 500 MG Carbidopa/Levodopa (Sinemet Cr 50/ 200MG Tab) 1 tab BID PO 10/30/17 21:00 11/29/17 20:59 11/02/17 07:45 1 TAB Fluoxetine HCl (Prozac Cap) 40 mg DAILY PO 10/31/17 09:00 11/30/17 08:59 11/02/17 07:45 40 MG Isosorbide Mononitrate (Imdur Ext Rel Tab) 30 mg QAM PO 10/31/17 09:00 11/30/17 08:59 11/02/17 07:43 30 MG Metoprolol Succinate (Toprol Xl Tab) 12.5 mg DAILY PO 10/31/17 09:00 11/30/17 08:59 11/02/17 07:45 12.5 MG Mirabegron (Myrbetriq Er) 50 mg DAILY PO 10/31/17 09:00 11/30/17 08:59 11/02/17 07:44 50 MG Oxycodone/ Acetaminophen (Percocet 5-325mg Tab) 1 tab Q4H PRN PO 10/30/17 14:00 11/13/17 13:59 Pregabalin (Lyrica Cap) 300 mg BID PO 10/30/17 21:00 11/29/17 20:59 11/02/17 07:53 300 MG Ranitidine HCl (zANTac TAB) 150 mg HS PO 10/30/17 21:00 11/29/17 20:59 11/01/17 20:42 150 MG Simvastatin (Zocor Tab) 20 mg QPM PO 10/30/17 21:00 11/29/17 20:59 11/01/17 20:42 20 MG Tamsulosin HCl (Flomax Cap) 0.4 mg DAILY PO 10/31/17 09:00 11/30/17 08:59 11/02/17 07:43 0.4 MG Zolpidem Tartrate (Ambien Tab) 10 mg HS PRN PO 10/30/17 14:00 11/29/17 13:59 Miscellaneous Information (Order Awaiting Action) 1 ea QS N/A 10/30/17 16:00 11/29/17 15:59 10/30/17 22:50 1 EA Ferrous Sulfate (Feosol Tab) 325 mg DAILY PO 10/31/17 09:00 11/30/17 08:59 11/02/17 07:43 325 MG Insulin Aspart (novoLOG ASPART) SLIDING SCALE If C... ACHS SC 10/30/17 16:00 11/29/17 15:59 Glucose (Glucose 40% Gel) 15-30 GRAMS 15 GRAMS... UD PRN PO 10/30/17 14:30 11/29/17 14:29 11/02/17 07:36 15 GM Glucose (Glucose Chew Tab) 4-8 Tablets 4 Tabl... UD PRN PO 10/30/17 14:30 11/29/17 14:29 Dextrose (Dextrose 50% 50ML Syringe) 25-50ML 25ML FOR ... UD PRN IV 10/30/17 14:30 11/29/17 14:29 Glucagon (Glucagon Inj) 1 mg UD PRN IM 10/30/17 14:30 11/29/17 14:29 Carbohydrates (Carbohydrates For Hypoglycemia) 15-30 GRAMS 15 grams if BSG 54-69... UD PRN PO 10/30/17 14:30 11/29/17 14:29 11/01/17 07:21 15 GM Polyethylene (Miralax Powder Packet) 17 gm DAILY PRN PO 11/01/17 10:15 12/01/17 10:14 Docusate Sodium (coLACE CAP) 100 mg BID PO 11/01/17 20:00 12/01/17 19:59 11/02/17 07:43 100 MG Objective Vital Signs Date Time Temp Pulse Resp B/P (MAP) Pulse Ox O2 Delivery O2 Flow Rate FiO2 11/02/17 08:02 Room Air 11/02/17 00:00 Room Air 11/01/17 23:02 36.3 63 18 146/80 (102) 99 Room Air 11/01/17 15:53 96 Room Air 11/01/17 15:41 36.6 69 18 133/75 (94) 96 Physical Exam General Appearance: no apparent distress Eyes: normal inspection, PERRL ENT: hearing grossly normal Neck: supple Respiratory/Chest: lungs clear, no respiratory distress, no accessory muscle use Cardiovascular: regular rate, rhythm Abdomen: normal bowel sounds, non tender, soft Extremities: no pedal edema, no calf tenderness Neurologic/Psychiatric: alert, normal mood/affect, oriented x 3 Skin: normal color, warm/dry, no rash Laboratory Results Last 24 Hours Test 11/01/17 17:07 11/01/17 20:27 11/02/17 05:20 11/02/17 06:59 Bedside Glucose 98 mg/dl 128 mg/dl 63 mg/dl White Blood Count 7.12 K/uL Red Blood Count 4.19 M/uL Hemoglobin 12.4 g/dL Hematocrit 38.1 % Mean Corpuscular Volume 90.9 fL Mean Corpuscular Hemoglobin 29.6 pg Mean Corpuscular Hemoglobin Concent 32.5 g/dl RDW Standard Deviation 45.7 fL RDW Coefficient of Variation 13.8 % Platelet Count 131 K/uL Mean Platelet Volume 11.1 fL Sodium Level 145 mmol/L Potassium Level 4.6 mmol/L Chloride Level 113 mmol/L Carbon Dioxide Level 27 mmol/L Anion Gap 5.0 mmol/L Blood Urea Nitrogen 44 mg/dl Creatinine 1.65 mg/dl Est Creatinine Clear Calc Drug Dose 58.3 ml/min Estimated GFR () 50.4 Estimated GFR (Non- 43.5 BUN/Creatinine Ratio 26.5 Random Glucose 49 mg/dl Calcium Level 9.0 mg/dl Test 11/02/17 07:30 11/02/17 08:10 11/02/17 12:00 Bedside Glucose 60 mg/dl 84 mg/dl 130 mg/dl Assessment and Plan Mr. Gonzalez is a 62 year old man here for JOLLY due to obstructive uropathy. Acute kidney injury on CKD Stage II, suspect obstructive uropathy w/ h/o neurogenic bladder: - Follow PRP- tip printer 1.65 today- baseline around 1.0 - Robert catheter placed and draining adequate clear/yellow urine - UA unremarkable except for occult blood- cx with no growth - Lasix, Losartan, and Spironolactone remain on hold at this time - Treated w/ NSS at 75 mL/hr - Myrbetriq 50 mg daily and Flomax 0.4 mg daily - Urology and Nephrology consulted- appreciate input- planning on outpatient evaluation from Urology but current plan is continue Robert catheter Hyperkalemia- RESOLVED: Treated w/ Kayexalate- continue to monitor Parkinson's disease, depression- STABLE: Amantadine 100 mg BID and Sinemet 1 tab BID, Prozac HTN, HLD and grade I diastolic dysfunction- STABLE: Norvasc 5 mg daily, Imdur 30 mg daily, Toprol XL 12.5 mg daily, Simvastatin 20 mg daily T2DM with peripheral neuropathy- hgbA1c 7.9% - Hypoglycemia in AM- has received no insulin HS, ordered snack HS - Stop Lantus and cover with SSI to determine insulin needs - Lyrica 300 mg BID h/o DVT/PE: Eliquis 2.5 mg BID GERD: Zantac HS DVT Prophylaxis: Eliquis Code Status: LEVEL V, DNR Disposition: From [facility]- hopeful discharge tomorrow- PT/OT and CM following
[2017-11-02 15:18] VITALS: BP 120/72; PULSE 68; TEMP 36.3; O2SAT 98
[2017-11-02] MEDS: RANITIDINE HCL 150 MG TAB PO SCH (20:17)
[2017-11-02] MEDS: SIMVASTATIN 20 MG TAB PO SCH (20:18)
[2017-11-03] VITALS: BP 129/77; PULSE 68; TEMP 36.4; O2SAT 96
[2017-11-03 06:27] LABS: HEMATOCRIT 37.6 % (42-52); HEMOGLOBIN 12.2 g/dL (14.0-18.0); MEAN CELL VOLUME 89.3 fL (80-100); MEAN CORPUSCULAR HGB CONC 32.4 g/dl (32-36); MEAN PLATELET VOLUME 10.2 fL (7.4-10.4); PLATELET COUNT 118 K/uL (130-400); RED CELL DISTRIBUTION WIDTH CV 13.6 % (11.5-14.5); RED CELL DISTRIBUTION WIDTH SD 44.8 fL (36.4-46.3); WHITE BLOOD COUNT 7.13 K/uL (4.8-10.8)
[2017-11-03 07:02] LABS: CALCIUM 9.1 mg/dl (8.5-10.1); CREATININE 1.87 mg/dl (0.60-1.40); POTASSIUM 4.5 mmol/L (3.5-5.1)
[2017-11-03 07:41] VITALS: BP 127/81; PULSE 63; TEMP 36.4; O2SAT 98
[2017-11-03] MEDS: INSULIN ASPART 100 UNITS/ML 3 ML PEN SC SCH ×2 (07:59→11:46)
[2017-11-03] MEDS: AVODART - ORDER AWAITING ACTION SCH ×2 (08:00→15:23)
[2017-11-03] MEDS: FERROUS SULFATE 325 MG TAB PO SCH (08:06)
[2017-11-03] MEDS: ISOSORBIDE MONONITRATE 30 MG TABCR PO SCH (08:06)
[2017-11-03] MEDS: FLUOXETINE HCL 20 MG CAP PO SCH (08:06)
[2017-11-03] MEDS: CARBIDOPA/LEVODOPA 50/200MG EXT REL TAB PO SCH (08:06)
[2017-11-03] MEDS: TAMSULOSIN HCL 0.4 MG CAP PO SCH (08:06)
[2017-11-03] MEDS: APIXABAN 2.5 MG TAB PO SCH (08:06)
[2017-11-03] MEDS: DOCUSATE SODIUM 100 MG CAP PO SCH (08:06)
[2017-11-03] MEDS: PREGABALIN 150 MG CAP PO SCH (08:07)
[2017-11-03] MEDS: ALLOPURINOL 100 MG TAB PO SCH (08:07)
[2017-11-03] MEDS: MIRABEGRON ER 25 MG TAB PO SCH (08:07)
[2017-11-03] MEDS: AMLODIPINE BESYLATE 5 MG TAB PO SCH (08:07)
[2017-11-03] MEDS: AMANTADINE HCL 100 MG CAP PO SCH (08:07)
[2017-11-03] MEDS: ASCORBIC ACID 500 MG TAB PO SCH (08:08)
[2017-11-03] MEDS: METOPROLOL SUCC 25MG EXT REL TAB PO SCH (08:08)
--- NOTE | 2017-11-03 09:32 | Nephrology Progress Note ---
Nephrology Progress Note Date of Service November 03, 2017. Chief Complaint Acute kidney injury Subjective Mr. Gonzalez was seen & examined in his hospital room this morning. He denies fever, angina, dyspnea or uremic symptoms. Robert catheter remains in place draining clear yellow urine. Review of Systems Constitutional: No fever Cardiovascular: No chest pain Respiratory: No dyspnea at rest Abdomen: No pain, No nausea, No vomiting Extremities: No leg edema A complete review of systems was performed. Pertinent positives are noted above. All other systems are negative. Vital Signs Last 8 Hrs Date Time Temp Pulse Resp B/P (MAP) Pulse Ox O2 Delivery O2 Flow Rate FiO2 11/03/17 07:41 36.4 63 20 127/81 (96) 98 Room Air Last Recorded Weight Weight (Kilograms): 118.700 Physical Exam General Appearance: no apparent distress Head: normocephalic, atraumatic Eyes: PERRL, EOMI Neck: no adenopathy Respiratory/Chest: lungs clear, no respiratory distress Cardiovascular: regular rate, rhythm Abdomen/GI: normal bowel sounds, non tender, soft Genitourinary - Male: + pertinent finding (robert catheter in place draining clear yellow urine) Extremities/Musculoskelatal: no calf tenderness, no pedal edema Neurologic/Psych: alert, oriented x 3 Family History Cancer Diabetes mellitus FH: heart disease Hypertension Negative for CKD / ESRD Social History Smoking Status: Never smoker Smokeless Tobacco Use: No Alcohol Use: none Drug Use: none Marital Status: Housing Status: chcf (rehab at [facility]) Occupation: disabled , medically disabled Laboratory Results Past 24 Hours 11/03/17 06:11 11/03/17 06:11 Test 11/02/17 12:00 11/02/17 16:49 11/02/17 19:58 11/03/17 01:07 Bedside Glucose 130 mg/dl (70-99) 88 mg/dl (70-99) 164 mg/dl (70-99) 101 mg/dl (70-99) Test 11/03/17 06:11 11/03/17 07:47 Red Blood Count 4.21 M/uL (4.7-6.1) Mean Corpuscular Volume 89.3 fL (80-100) Mean Corpuscular Hemoglobin 29.0 pg (25-34) Mean Corpuscular Hemoglobin Concent 32.4 g/dl (32-36) RDW Standard Deviation 44.8 fL (36.4-46.3) RDW Coefficient of Variation 13.6 % (11.5-14.5) Mean Platelet Volume 10.2 fL (7.4-10.4) Anion Gap 7.0 mmol/L (3-11) Est Creatinine Clear Calc Drug Dose 51.4 ml/min Estimated GFR () 43.4 Estimated GFR (Non- 37.4 BUN/Creatinine Ratio 23.4 (10-20) Calcium Level 9.1 mg/dl (8.5-10.1) Bedside Glucose 76 mg/dl (70-99) Allergies Coded Allergies: Penicillins (Verified Allergy, Severe, 10/30/17) SEVERE RXN PER PT Cephalosporins (Verified Allergy, Unknown, 10/30/17) Sulfamethoxazole w/Trimethoprim (Verified Allergy, Unknown, ., 10/30/17) TAKES LASIX AT HOME Lisinopril (Verified Adverse Reaction, Intermediate, Cough, 10/30/17) Medications Current Inpatient Medications Medications (Trade) Dose Ordered Sig/Apryl Route Start Time Stop Time Status Last Admin Dose Admin Acetaminophen (Tylenol Tab) 650 mg Q4H PRN PO 10/30/17 14:00 11/29/17 13:59 Allopurinol (Zyloprim Tab) 100 mg DAILY PO 10/31/17 09:00 11/30/17 08:59 11/03/17 08:07 100 MG Amantadine HCl (Symmetrel Cap) 100 mg BID PO 10/30/17 21:00 11/29/17 20:59 11/03/17 08:07 100 MG Amlodipine Besylate (Norvasc Tab) 5 mg DAILY PO 10/31/17 09:00 11/30/17 08:59 11/03/17 08:07 5 MG Apixaban (Eliquis Tab) 2.5 mg BID PO 10/30/17 21:00 11/29/17 20:59 11/03/17 08:06 2.5 MG Ascorbic Acid (Vitamin C Tab) 500 mg QAM PO 10/31/17 09:00 11/30/17 08:59 11/03/17 08:08 500 MG Carbidopa/Levodopa (Sinemet Cr 50/ 200MG Tab) 1 tab BID PO 10/30/17 21:00 11/29/17 20:59 11/03/17 08:06 1 TAB Fluoxetine HCl (Prozac Cap) 40 mg DAILY PO 10/31/17 09:00 11/30/17 08:59 11/03/17 08:06 40 MG Isosorbide Mononitrate (Imdur Ext Rel Tab) 30 mg QAM PO 10/31/17 09:00 11/30/17 08:59 11/03/17 08:06 30 MG Metoprolol Succinate (Toprol Xl Tab) 12.5 mg DAILY PO 10/31/17 09:00 11/30/17 08:59 11/03/17 08:08 12.5 MG Mirabegron (Myrbetriq Er) 50 mg DAILY PO 10/31/17 09:00 11/30/17 08:59 11/03/17 08:07 50 MG Oxycodone/ Acetaminophen (Percocet 5-325mg Tab) 1 tab Q4H PRN PO 10/30/17 14:00 11/13/17 13:59 Pregabalin (Lyrica Cap) 300 mg BID PO 10/30/17 21:00 11/29/17 20:59 11/03/17 08:07 300 MG Ranitidine HCl (zANTac TAB) 150 mg HS PO 10/30/17 21:00 11/29/17 20:59 11/02/17 20:17 150 MG Simvastatin (Zocor Tab) 20 mg QPM PO 10/30/17 21:00 11/29/17 20:59 11/02/17 20:18 20 MG Tamsulosin HCl (Flomax Cap) 0.4 mg DAILY PO 10/31/17 09:00 11/30/17 08:59 11/03/17 08:06 0.4 MG Zolpidem Tartrate (Ambien Tab) 10 mg HS PRN PO 10/30/17 14:00 11/29/17 13:59 Miscellaneous Information (Order Awaiting Action) 1 ea QS N/A 10/30/17 16:00 11/29/17 15:59 10/30/17 22:50 1 EA Ferrous Sulfate (Feosol Tab) 325 mg DAILY PO 10/31/17 09:00 11/30/17 08:59 11/03/17 08:06 325 MG Insulin Aspart (novoLOG ASPART) SLIDING SCALE If C... ACHS SC 10/30/17 16:00 11/29/17 15:59 11/02/17 21:47 1 UNITS Glucose (Glucose 40% Gel) 15-30 GRAMS 15 GRAMS... UD PRN PO 10/30/17 14:30 11/29/17 14:29 11/02/17 07:36 15 GM Glucose (Glucose Chew Tab) 4-8 Tablets 4 Tabl... UD PRN PO 10/30/17 14:30 11/29/17 14:29 Dextrose (Dextrose 50% 50ML Syringe) 25-50ML 25ML FOR ... UD PRN IV 10/30/17 14:30 11/29/17 14:29 Glucagon (Glucagon Inj) 1 mg UD PRN IM 10/30/17 14:30 11/29/17 14:29 Carbohydrates (Carbohydrates For Hypoglycemia) 15-30 GRAMS 15 grams if BSG 54-69... UD PRN PO 10/30/17 14:30 11/29/17 14:29 11/01/17 07:21 15 GM Polyethylene (Miralax Powder Packet) 17 gm DAILY PRN PO 11/01/17 10:15 12/01/17 10:14 Docusate Sodium (coLACE CAP) 100 mg BID PO 11/01/17 20:00 12/01/17 19:59 11/03/17 08:06 100 MG Impression (1) Acute kidney injury (2) Hyperkalemia (3) Neurogenic bladder (4) Parkinson's disease (5) Hypertension Recommendations ACUTE KIDNEY INJURY: -- Baseline creatinine has been 1.0 -- Creatinine is trending down and patient is nonoliguric following Robert catheter insertion -- Blood pressure remains acceptable. Continue to hold Furosemide, Lisinopril and Spironolactone -- Encourage oral nutrition -- Monitor serial PRP HYPERKALEMIA: -- Corrected following relief of urinary obstruction and Kayexelate administration. Will monitor NEUROGENIC BLADDER: -- Urology consultation 10/31: Keep Robert catheter in place. Further evaluation as outpatient
[2017-11-03 11:01] VITALS: Ht 175.3 cm; Wt 118.7 kg
[2017-11-03 11:05] VITALS: BP 127/81; PULSE 63; TEMP 36.4; O2SAT 98
--- NOTE | 2017-11-03 11:25 | Discharge Instructions ---
Discharge Instructions Date of Service November 03, 2017. Admission Reason for Admission: Elevated Serum Creatinine,Obstructive Uropathy Discharge Discharge Diagnosis / Problem: obstructive uropathy Discharge Goals Goal(s): Decrease discomfort, Improve function, Increase independence, Improve disease control, Learn about illness, Diagnostic testing, Therapeutic intervention, Prevent Disease Progression Activity Recommendations Activity Level: Assistance Required Therapies: Physical Therapy, Occupational Therapy . Additional Information Patient informed of condition: Yes Advance Directives: Yes DNR: Yes Level of Care: Skilled Communicable Disease: No Prognosis: Stable Wills Catheter: Yes Instructions / Follow-Up Instructions / Follow-Up Acute kidney injury on CKD Stage II, suspect obstructive uropathy w/ h/o neurogenic bladder: - Follow PRP- medical instructor 1.87today- baseline around 1.0 - Wills catheter placed and draining adequate clear/yellow urine - UA unremarkable except for occult blood- cx with no growth - Lasix, Losartan, and Spironolactone remain on hold at this time - Treated w/ NSS at 75 mL/hr - Myrbetriq 50 mg daily and Flomax 0.4 mg daily - Urology and Nephrology consulted- appreciate input- planning on outpatient evaluation from Urology but current plan is continue Wills catheter Hyperkalemia- RESOLVED: Treated w/ Kayexalate Parkinson's disease, depression- STABLE: Amantadine 100 mg BID and Sinemet 1 tab BID, Prozac HTN, HLD and grade I diastolic dysfunction- STABLE: Norvasc 5 mg daily, Imdur 30 mg daily, Toprol XL 12.5 mg daily, Simvastatin 20 mg daily T2DM with peripheral neuropathy- hgbA1c 7.9% - Hypoglycemia in AM- has received no insulin HS, ordered snack HS - Stop Lantus and cover with SSI to determine insulin needs- will continue this at discharge, provider can continue to monitor and add Lantus back PRN - Lyrica 300 mg BID h/o DVT/PE: Eliquis 2.5 mg BID GERD: Zantac HS DVT Prophylaxis: Eliquis Code Status: LEVEL V, DNR Disposition: Discharge to [facility] FOLLOW-UPS: Follow-up with [facility] provider within 24-48 hours Please follow-up with your PCP within 5-7 days after discharge from [facility] Please follow-up with Urology within 1-2 weeks Follow-up with Nephrology within 1-2 weeks Please follow-up/keep all of your subspecialty appointmentsm Current Hospital Diet Patient's current hospital diet: Renal Diet, Diabetes Type 2 Diet Discharge Diet Recommended Diet: Diabetes Type 2 Diet, Renal Diet Pending Studies Studies pending at discharge: no Physician Orders On Transfer Special Precautions: Fall precautions Dressing Changes: None IV Therapy: None Vital Signs: Routine Additional Orders: Repeat PRP in 2 days POLST Discussion: Not Applicable Laboratory Results Lipid Panel Test 10/14/17 06:46 Range/Units Triglycerides Level 130 0-150 mg/dl Cholesterol Level 140 0-200 mg/dl HDL Cholesterol 36 mg/dl Cholesterol/HDL Ratio 3.9 LDL Cholesterol, Calculated 78 mg/dl Medical Emergencies . Who to Call and When: Medical Emergencies: If at any time you feel your situation is an emergency, please call 911 immediately. . Non-Emergent Contact Non-Emergency issues call your: Primary Care Provider, Car Sales Consultant, Urologist Call Non-Emergent contact if: you have a fever, your pain is not controlled, your pain is worsening, your pain is unusual for you, your pain is concerning you, you have any medication questions . . "Provider Documentation" section prepared by Nessa Moeller. . Core Measure Problem Core Measures: None
--- NOTE | 2017-11-03 11:33 | Discharge Summary ---
Discharge Summary Date of Service November 03, 2017. Discharge Summary Admission Date: October 30, 2017 at 14:08 Discharge Date: November 03, 2017 [facility]charge Disposition: [facility] facility Principal Diagnosis: obstructive uropathy Problems/Secondary Diagnoses: Acute kidney injury on CKD Stage II, suspect obstructive uropathy w/ h/o neurogenic bladder: Hyperkalemia Parkinson's disease depression HTN HLD grade I diastolic dysfunction T2DM with peripheral neuropathy- hgbA1c 7.9% h/o DVT/PE GERD Immunizations: Have You Had Influenza Vaccine: Unknown History of Tetanus Vaccine?: probably over 10 yrs ago History of Pneumococcal: apr 2004 History of Hepatitis B Vaccine: 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 TECHNIQUE: Portable upright AP view of the chest was obtained. COMPARISON: 10/13/2017. FINDINGS: Atherosclerosis of aortic arch. Cardiac silhouette mildly enlarged. Pulmonary vascular prominence. Mildly low lung volumes. No focal opacity. No large effusion or pneumothorax. Degenerative changes of the thoracic spine. Upper abdomen normal. IMPRESSION: 1. Mild cardiomegaly with possible volume overload. 2. Mildly low lung volumes with hypoventilatory changes. Electronically signed by: Mitesh Shook M.D. 10/30/2017 12:11 PM Dictated Date/Time: 10/30/2017 12:10 PM The status of this report is Signed. Draft = Not yet reviewed or approved by Radiologist. Signed = Reviewed and approved by Radiologist. Consultations: Urology Nephrology Medication Reconciliation Continued Medications: Allopurinol (Allopurinol) 100 Mg Tab 100 MG PO DAILY Amantadine HCl (Amantadine HCl) 100 Mg Cap 100 MG PO BID Amlodipine Besylate (Amlodipine Besylate) 5 Mg Tab 5 MG PO DAILY, #30 TAB 3 Refills Apixaban (Eliquis) 2.5 Mg Tab 2.5 MG PO BID, TAB Ascorbic Acid (Vitamin C) 500 Mg Tab 500 MG PO QAM Carbidopa/Levodopa (Sinemet Cr 50MG/200MG) Tabcr 1 TAB PO BID Colchicine (Colchicine) 0.6 Mg Tab 0.6 MG PO DAILY PRN for Gout Flare Up, TAB Dutasteride (Avodart) 0.5 Mg Cap 0.5 MG PO DAILY, CAP Ferrous Sulfate (Iron) 325 Mg Tab 325 MG PO DAILY Fluoxetine (Prozac) 40 Mg Cap 40 MG PO DAILY, CAP Isosorbide Mononitrate (Isosorbide Mononitrate ER) 30 Mg Tabcr 30 MG PO QAM, #30 TAB Metoprolol Succinate (Metoprolol Succinate ER) 25 Mg Tabcr 12.5 MG PO DAILY for 30 Days, #15 TABS Mirabegron (Myrbetriq Er) 50 Mg Tab 50 MG PO DAILY, TAB Oxycodone/Acetaminophen 5MG/325MG (Percocet 5MG/325MG) Tab 1-2 TABLETS PO Q4H PRN for Pain, TAB Pregabalin (Lyrica) 300 Mg Cap 300 MG PO BID Ranitidine Hcl (Zantac) 150 Mg Tab 150 MG PO HS, TAB Simvastatin (Zocor) 20 Mg Tab 20 MG PO QPM, TAB Tamsulosin Hcl (Flomax) 0.4 Mg Cap 0.4 MG PO DAILY, CAP Zolpidem Tartrate (Ambien) 10 Mg Tab 10 MG PO HS PRN for Sleep, TAB Discontinued Medications: Furosemide (Furosemide) 80 Mg Tab 80 MG PO BID for 30 Days, #60 TABS Losartan Potassium (Cozaar) 50 Mg Tab 1 TAB PO DAILY for 30 Days, #30 TAB Spironolactone (Aldactone) 50 Mg Tab 50 MG PO BID for 30 Days, #60 TAB [Unknown Insulin] () 60 UNITS SC QAM Referrals At Discharge Follow up Referrals: Sighter Referral - Within 1-2 Weeks with Donnell Tee M.D. Urologist Referral - Within 1-2 Weeks with Nino Case MD, Urology Discharge Exam Review of Systems: Constitutional: No fever, No chills, No sweats, No weakness, No fatigue ENT: No hearing loss Respiratory: No cough, No shortness of breath, No hemoptysis Cardiovascular: No chest pain, No edema, No palpitations Abdomen: No pain, No nausea, No vomiting, No diarrhea, No constipation Musculoskeletal: No joint pain, No muscle pain, No swelling, No calf pain Genitourinary - Male: No hematuria Neurologic: No weakness, No numbness/tingling Psychiatric: No depression symptoms, No anxiety Endocrine: No fatigue Hematologic / Lymphatic: No abnormal bleeding/bruising Integumentary: No rash, No itch, No new/changing skin lesions Physical Exam: General Appearance: no apparent distress, + obese Eyes: normal inspection, PERRL ENT: hearing grossly normal Neck: supple Respiratory/Chest: lungs clear, no respiratory distress, no accessory muscle use Cardiovascular: regular rate, rhythm Abdomen / GI: normal bowel sounds, non tender, soft Extremities: no calf tenderness, no pedal edema Neurologic/Psychiatric: alert, normal mood/affect, oriented x 3 Skin: normal color, warm/dry, no rash Hospital Course Mr. Gonzalez is a 62 year old man here for JOLLY due to obstructive uropathy. Acute kidney injury on CKD Stage II, suspect obstructive uropathy w/ h/o neurogenic bladder: - Follow PRP- hassock maker 1.87 today- baseline around 1.0 - Wills catheter placed and draining adequate clear/yellow urine - UA unremarkable except for occult blood- cx with no growth - Lasix, Losartan, and Spironolactone remain on hold at this time - Treated w/ NSS at 75 mL/hr - Myrbetriq 50 mg daily and Flomax 0.4 mg daily - Urology and Nephrology consulted- appreciate input- planning on outpatient evaluation from Urology but current plan is continue Wills catheter Hyperkalemia- RESOLVED: Treated w/ Kayexalate- continue to monitor Parkinson's disease, depression- STABLE: Amantadine 100 mg BID and Sinemet 1 tab BID, Prozac HTN, HLD and grade I diastolic dysfunction- STABLE: Norvasc 5 mg daily, Imdur 30 mg daily, Toprol XL 12.5 mg daily, Simvastatin 20 mg daily T2DM with peripheral neuropathy- hgbA1c 7.9% - Hypoglycemia in AM- has received no insulin HS, ordered snack HS - Stop Lantus and cover with SSI to determine insulin needs- will continue to hold Lantus at discharge, continue BSG ACHS + ISS at [facility] and monitor need for adding Lantus back - Lyrica 300 mg BID h/o DVT/PE: Eliquis 2.5 mg BID GERD: Zantac HS DVT Prophylaxis: Eliquis Code Status: LEVEL V, DNR Disposition: Discharge to [facility] Total Time Spent: Greater than 30 minutes This includes examination of the patient, discharge planning, medication reconciliation, and communication with other providers. Discharge Instructions Please refer to the electronic Patient Visit Report (Discharge Instructions) for additional information. Follow-Up Follow-up with [facility] provider within 24-48 hours Please follow-up with your PCP within 5-7 days after discharge from [place] [facility] Please follow-up with Urology within 1-2 weeks Follow-up with Nephrology within 1-2 weeks Please follow-up/keep all of your subspecialty appointments Additional Copies To [facility]
== END 2017-11-03 16:53 | DRG 699 ==
LOC: EDBD 11:14 → C.EDC 11:16 → C.2T 14:08 → ENRESERV 14:21 → C.4E 11-01 10:13
PROVIDERS: ADMIT Internal Medicine; ATTEND Hospitalist
DX: N13.9 Obstructive and reflux uropathy, unspecified (principal); N17.9 Acute kidney failure, unspecified; N13.30 Unspecified hydronephrosis; R31.29 Other microscopic hematuria; N31.9 Neuromuscular dysfunction of bladder, unspecified; E87.5 Hyperkalemia; R33.9 Retention of urine, unspecified; I13.10 Hypertensive heart and chronic kidney disease without heart failure, with stage 1 through stage 4 chronic kidney disease, or unspecified chronic kidney disease; E11.22 Type 2 diabetes mellitus with diabetic chronic kidney disease; E11.649 Type 2 diabetes mellitus with hypoglycemia without coma; E11.40 Type 2 diabetes mellitus with diabetic neuropathy, unspecified; N18.2 Chronic kidney disease, stage 2 (mild); G20 Parkinson's disease; R53.1 Weakness; E78.5 Hyperlipidemia, unspecified; K21.9 Gastro-esophageal reflux disease without esophagitis; M10.9 Gout, unspecified; F32.9 Major depressive disorder, single episode, unspecified; Z66 Do not resuscitate; Z86.718 Personal history of other venous thrombosis and embolism; Z86.711 Personal history of pulmonary embolism; Z79.01 Long term (current) use of anticoagulants; Z79.899 Other long term (current) drug therapy; Z88.0 Allergy status to penicillin; Z88.1 Allergy status to other antibiotic agents; Z88.2 Allergy status to sulfonamides; Z88.8 Allergy status to other drugs, medicaments and biological substances

== ENCOUNTER → 2018-01-05 | Outpatient (CLI) | payer OTHER ==
[~2018-01-05] MED LIST changes: -LOSA50TA6 PO; -LSX80 PO; -SPIR50TA2 PO; -[UNRECOGNIZED DRUG - REMARK] SC
[2018-01-05 08:36] LABS: BASO % 0.3 %; BASO ABS # 0.02 K/uL (0-0.2); EOS % 4.4 %; EOS ABS # 0.29 K/uL (0-0.5); HEMOGLOBIN 11.5 g/dL (14.0-18.0); IG# 0.03 K/uL (0.00-0.02); LYMPH % 22.7 %; LYMPH ABS # 1.51 K/uL (1.2-3.4); MEAN CELL VOLUME 91.1 fL (80-100); MEAN CORPUSCULAR HEMOGLOBIN 29.9 pg (25-34); MEAN CORPUSCULAR HGB CONC 32.9 g/dl (32-36); MEAN PLATELET VOLUME 10.3 fL (7.4-10.4); MONO % 6.2 %; MONO ABS # 0.41 K/uL (0.11-0.59); NEUT % 65.9 %; PLATELET COUNT 146 K/uL (130-400); RED CELL DISTRIBUTION WIDTH CV 14.2 % (11.5-14.5); RED CELL DISTRIBUTION WIDTH SD 46.7 fL (36.4-46.3); WHITE BLOOD COUNT 6.66 K/uL (4.8-10.8)
[2018-01-05 09:05] LABS: HEMOGLOBIN A1C 6.3 % (4.5-5.6)
== END | disposition home or self-care (01) ==
LOC: C.LABCC 07:55
PROVIDERS: ATTEND Internal Medicine
DX: D69.6 Thrombocytopenia, unspecified (principal); E11.9 Type 2 diabetes mellitus without complications

== ENCOUNTER 2019-02-05 21:39 | Inpatient (IN) ==
[2019-02-05 23:08] LABS: Basophils # (auto) 0.03 K/uL (0-0.2); Basophils % (auto) 0.5 %; Eosinophils # (auto) 0.29 K/uL (0-0.5); Eosinophils % (auto) 4.9 %; Hemoglobin 13.1 g/dL (14.0-18.0); Immature Granulocytes # (auto) 0.02 K/uL (0.00-0.02); Immature Granulocytes % (auto) 0.3 %; Lymphocytes # (auto) 1.78 K/uL (1.2-3.4); Lymphocytes % (auto) 30.3 %; Mean Corpuscular Hemoglobin 30.4 pg (25-34); Mean Corpuscular Hgb Conc 33.6 g/dL (32-36); Mean Corpuscular Volume 90.5 fL (80-100); Mean Platelet Volume 9.2 fL (7.4-10.4); Monocytes # (auto) 0.42 K/uL (0.11-0.59); Monocytes % (auto) 7.1 %; Neutrophils # (auto) 3.34 K/uL (1.4-6.5); Neutrophils % (auto) 56.9 %; Platelet Count 140 K/uL (130-400); RDW Coefficient of Variation 14.4 % (11.5-14.5); RDW Standard Deviation 48.1 fL (36.4-46.3); Red Blood Count 4.31 M/uL (4.7-6.1); White Blood Count 5.88 K/uL (4.8-10.8)
[2019-02-05 23:18] LABS: INR 1.1 (0.9-1.1); Partial Thromboplastin Ratio 1.2; Partial Thromboplastin Time 32.7 Seconds (21.0-31.0); Prothrombin Time 11.2 Seconds (9.0-12.0)
[2019-02-05 23:25] LABS: Alanine Aminotransferase 15 U/L (12-78); Albumin Level 2.9 gm/dl (3.4-5.0); Aspartate Aminotransferase 14 U/L (15-37); BUN Creatinine Ratio 13.3 (10-20); Blood Urea Nitrogen 13 mg/dl (7-18); Calcium 8.7 mg/dl (8.5-10.1); Carbon Dioxide 35 mmol/L (21-32); Chloride 103 mmol/L (98-107); Creatinine Clr Calc Pharmacy 100.1 ml/min; Est GFR (African American) 98.2; Est GFR (Non-African American) 84.7; Glucose 146 mg/dl (70-99); Potassium 3.7 mmol/L (3.5-5.1); Sodium 140 mmol/L (136-145)
[2019-02-05 23:30] LABS: Albumin Globulin Ratio 0.7 (0.9-2); Alkaline Phosphatase 156 U/L (45-117); Bilirubin,Total 0.3 mg/dl (0.2-1); Total Protein 6.9 gm/dl (6.4-8.2); Troponin I < 0.015 ng/ml (0-0.045)
[2019-02-06] MEDS ORDERED: MoRPHine SULFATE 10 MG/ML CARP/VIAL IV STA (00:54)
[2019-02-06] MEDS ORDERED: HEPARIN SOD 5,000 UNIT/0.5 ML VIAL ONE (01:04)
[2019-02-06] MEDS: HEPARIN SODIUM/DEXTROSE 25,000 UNITS/500 ML BAG IV SCH ×3 (01:09→23:05)
--- NOTE | 2019-02-06 03:33 | History & Physical Report ---
Date of Service February 06, 2019 Assessment & Plan (1) Inferior vena cava occlusion: (2) Hx of hypercoagulable state: 63 y/o M Hx Hypercoagulability disorder with multiple previous DVTs/PEs, HTN, HLD, advanced Parkinson's, gout, chronic diastolic CHF, DM II, and h/o TIA. Presents with L above the knee pain x 4 days. Found to have DVT - L common femoral vein / profunda femoris vein on 02/03/19 doppler - not seen on previous bilateral LE doppler on 01/2018. Admitted for pain control and management. Hypercoagulable state with hx of DVTs/PE even on anticoagulation; occlusive IVC MTHFR mutation, along with lupus anticoagulant and antithrombin III deficiency -Hx of being on coumadin for 10 years, then on Lovenox 150mg SQ bid x 10 years, and now Eliquis x 1 year -Abdominal CT 03/2018: Stent within the lower portion of the inferior vena cava extending from the bilateral iliac veins may be occluded (Stent of the infrarenal IVC and bilateral iliac veins) -vascular surgery on 03/2018 admission: chronic occlusion over 10 years, no intervention -Was on eliquis 5mg BID (dose increased from 2.5mg on 03/2018 admission -Found to have DVT of L common femoral vein / profunda femoris vein on 02/03/19 doppler - not seen on previous bilateral LE doppler on 01/2018 -Started on heparin drip in the ED -Morphine 2mg Q3H prn for pain -Doppler IVC/Aorta and IVC ordered to evaluate IVC filter and iliac bypass patency Hx HTN/HLD/Diastolic CHF grade 1 -Had normal dobutamine stress 10/2017 and multiple cardiac caths without obstructive disease in the past -ECHO 03/2018: EF 60-65% mild concentric LVH -Continue home Metoprolol, Zocor, Imdur, Lasix, amlodipine History of TIA (transient ischemic attack): -Continue home statin -Hold home eliquis, on heparin drip now Type 2 diabetes mellitus: -On humalog at home -Accu-Cheks and sliding scale insulin Gout: -continue home allopurinol Parkinson disease: -continue home Nuplazid, Sinemet, ropinirole GERD (gastroesophageal reflux disease): -continue home Zantac BPH (benign prostatic hyperplasia): -Continue home tamsulosin, dutasteride Mood disorder -Continue home fluoxetine DVT prop: Heparin gtt Code: DNR/DNI Dispo: pcu/telemetry (3) GERD (gastroesophageal reflux disease): (4) History of TIA (transient ischemic attack): (5) Chronic diastolic CHF (congestive heart failure): (6) History of pulmonary embolism: (7) Hyperlipemia: (8) BPH (benign prostatic hyperplasia): (9) Type 2 diabetes mellitus: (10) Gout: (11) Parkinson disease: (12) Hypertension: History of Present Illness Chief Complaint: L thigh pain Primary Care Provider: [facility] 63 y/o M Hx Hypercoagulability disorder with multiple previous DVTs/PEs, HTN, HLD, advanced Parkinson's, gout, chronic diastolic CHF, DM II, and h/o TIA. Presents from [facility] with L above the knee pain x 4 days. Found to have DVT - L common femoral vein / profunda femoris vein on 02/03/19 doppler. Pt also reports headache. Otherwise denies any dizziness, cp, sob, abdominal pain, nausea, vomiting, diarrhea, constipation, dysuria, hematuria, hematochezia, melena. Of note: pt reports chronic L thigh numbness s/p injury to nerve during back traction for herniated disc many years ago. Allergies Allergy/AdvReac Type Severity Reaction Status Date / Time Penicillins Allergy Severe Verified 02/06/19 02:09 Bactrim Allergy Unknown . Verified 04/06/18 09:03 Cephalosporins Allergy Unknown Verified 02/06/19 02:10 sulfamethoxazole Allergy Unknown . Verified 02/06/19 02:10 trimethoprim Allergy Unknown . Verified 02/06/19 02:09 lisinopril AdvReac Intermediate Cough Verified 02/06/19 02:09 Home Medications Home Medications Medication Instructions Recorded Confirmed Type acetaminophen [Tylenol] 650 mg PO Q6H PRN MDD 3G 04/10/18 02/06/19 History allopurinol 100 mg PO QAM 04/10/18 02/06/19 History amlodipine 10 mg PO DAILY 04/10/18 02/06/19 History ascorbic acid (vitamin C) 500 mg PO DAILY 04/10/18 02/06/19 History bisacodyl [Dulcolax (bisacodyl)] 10 mg [place] DAILY PRN 04/10/18 02/06/19 History dutasteride-tamsulosin 1 cap PO HS 04/10/18 02/06/19 History ferrous sulfate 325 mg PO DAILY 04/10/18 02/06/19 History fluoxetine 40 mg PO DAILY 04/10/18 02/06/19 History furosemide 80 mg PO DAILY 04/10/18 02/06/19 History insulin lispro [Humalog U-100 1 sliding scale dose SUBCUT UD PRN 04/10/18 02/06/19 History Insulin] isosorbide mononitrate 30 mg PO DAILY 04/10/18 02/06/19 History metoprolol succinate 12.5 mg PO BID 04/10/18 02/06/19 History pregabalin [Lyrica] 300 mg PO BID 04/10/18 02/06/19 History ranitidine HCl 150 mg PO HS 04/10/18 02/06/19 History simvastatin 20 mg PO HS 04/10/18 02/06/19 History tamsulosin 0.4 mg PO DAILY 04/10/18 02/06/19 History apixaban 5 mg PO BID #60 tab 04/13/18 02/06/19 Rx carbidopa-levodopa [Sinemet] 1 tab PO BID 02/06/19 02/06/19 History guaifenesin 600 mg PO Q12H 02/06/19 02/06/19 History magnesium hydroxide [Milk of 30 ml PO DAILY PRN 02/06/19 02/06/19 History Magnesia] morphine 5 mg PO Q6H PRN 02/06/19 02/06/19 History morphine 10 mg PO Q12H 02/06/19 02/06/19 History morphine 10 mg PO Q6H PRN 02/06/19 02/06/19 History nystatin 1 applic TOPICAL TID 02/06/19 02/06/19 History pimavanserin [Nuplazid] 34 mg PO DAILY 02/06/19 02/06/19 History ropinirole 2 mg PO DAILY 02/06/19 02/06/19 History Past Med/Surg History Medical History Inferior vena cava occlusion Chest pain Hx of hypercoagulable state Mobitz (type) I (Wenckebach's) atrioventricular block Chronic diastolic CHF (congestive heart failure) History of pulmonary embolism Hyperlipemia TIA (transient ischemic attack) BPH (benign prostatic hyperplasia) Type 2 diabetes mellitus Gout Parkinson disease Hypertension (Acute) Pulmonary embolus (Acute) SIRS (systemic inflammatory response syndrome) (Acute) Family History Father Parkinson disease Familial tremor Other No pertinent family history Social History Preferred Language: Polish Communication Ability: Effective Drawbridge Operator Required: No Beliefs That Will Affect Care: None marital status: Current Living Situation: Skilled Nursing Other Information That Helps Us Care for You: No Feels Safe at Home: Yes Safety Concerns: Feels Safe At This Time Smoking Status: Former smoker Second Hand Exposure: No ; Hx Alcohol Use: No Hx Substance Use: No Review of Systems Review of Systems: As per HPI Physical Exam Physical Exam: General: In NAD Neuro: A&O x 4 Pulm: CTAB equal breath sounds bilaterally CV: RRR, no m/r/g Abdomen:+BS, mildly TTP in lower abdominal quadrants (also precent on previous admission and pt reports chronic), obese abdomen LE: trace LE edema, bilateral calf TTP, L thigh numb compared to R thigh (reports chronic s/p back traction injury for herniated disc, strength 5/5 bilateral LEs Results & Data Vital Signs (Past 12 Hours) Vital Signs Temp Pulse Pulse Resp BP BP Pulse Ox 02/06/19 00:49 58 L 14 125/68 95 02/05/19 22:03 54 L 14 115/63 98 02/05/19 22:00 58 L 19 97 02/05/19 21:47 60 16 98 02/05/19 21:44 57 L 10 L 123/63 98 02/05/19 21:35 36.6 C 57 L 18 123/63 98 Laboratory Results Abnormal lab results 02/05/19 02/05/19 02/05/19 Range/Units 22:58 22:58 22:58 RBC 4.31 L (4.7-6.1) M/uL Hgb 13.1 L (14.0-18.0) g/dL Hct 39.0 L (42-52) % RDW Std Deviation 48.1 H (36.4-46.3) fL APTT 32.7 H (21.0-31.0) Seconds Carbon Dioxide 35 H (21-32) mmol/L Anion Gap 2.0 L (3-11) Glucose 146 H (70-99) mg/dl AST 14 L (15-37) U/L Alkaline Phosphatase 156 H (45-117) U/L Albumin 2.9 L (3.4-5.0) gm/dl Albumin/Globulin Ratio 0.7 L (0.9-2) Medications Administered Current Inpatient Medications Heparin Sodium/Dextrose (Heparin Sodium/Dextrose) 25,000 units in 500 mls @ 0.02 mls/hr IV .Q24H [facility]; Protocol Stop: 03/08/19 00:59 Last Admin: 02/06/19 01:09 Dose: 1,650 units/hr, 33 mls/hr Documented by: Code Status & VTE Plan Code Status DNR/DNI VTE Prophylaxis Plan VTE Prophylaxis will be ordered: Yes Supervising Physician Co-Signing Physician Notes Attending addendum: I have physically seen this patient, have supervised the medical residents activities, and agree with the H&P unless as otherwise noted. Assessment and Plan: Chronic inferior vena cava occlusion/chronic DVT/hypercoagulable state lupus anticoagulant, AT III deficiency/IVC filter- Had Dopplers done at [facility], which again showed DVT lower extremities. His Eliquis has been increased from 2.5 mg twice daily to 5 mg twice daily at last admission. IVC filter is in place. Will order Dopplers of lower abdomen and pelvis to assess blood vessels there as well. He was started on heparin IV in the ED, and will continue that for now while holding Eliquis, until patient is assessed by hematology. Presently on oral morphine for pain control. For now we will have PRN IV morphine. Remainder of orders and notations as noted. PG Care Time/CCT Total # of Minutes Spent Total Time Spent with Patient: Total time spent is greater than 50% in coordination of care (as documented) at patient's floor/unit and/or counseling patient: Resident Activity Tracking Resident Involvement: Resident Care Provided Care Provided: Adult Hospital Medicine (1) BPH (benign prostatic hyperplasia) Lower urinary tract symptom presence: symptoms absent Qualified Code(s): N40.0 - Benign prostatic hyperplasia without lower urinary tract symptoms (2) Gout Chronicity: unspecified Gout etiology: unspecified cause Gout site: unspecified site Qualified Code(s): M10.9 - Gout, unspecified (3) Type 2 diabetes mellitus Diabetes mellitus complication detail: with polyneuropathy Diabetes mellitus complication status: with neurologic complications Diabetes mellitus intermediate designer insulin use: without intermediate designer use Qualified Code(s): E11.42 - Type 2 diabetes mellitus with diabetic polyneuropathy (4) Hypertension Hypertension type: essential hypertension Qualified Code(s): I10 - Essential (primary) hypertension
[2019-02-06] MEDS ORDERED: BISACODYL 10 MG SUPP PR PRN (04:51)
[2019-02-06] MEDS ORDERED: MAGNESIUM HYDROXIDE SUSP 30 ML UDC PO PRN (04:51)
[2019-02-06] MEDS: SODIUM CHLORIDE 0.9% 1000ML 1,000 ML IV SCH ×3 (05:09→20:34)
--- NOTE | 2019-02-06 06:37 | Emergency Department Note ---
History of Present Illness General Chief complaint: Leg Injury/Pain Stated complaint: blood clot in left leg Source: patient Mode of arrival: ambulatory Limitations: no limitations History of Present Illness Maximum Pain Intensity: 7 This patient is a 64-year-old male who presents to the emergency department via EMS complaining of left leg pain. Patient is a resident at [facility]. He states that he had an ultrasound of the left leg performed 2 days ago which showed a blood clot. He states that he is already taking Eliquis and the doctor at [facility] did not adjust his medications at all. Patient states he has had pain in the leg for about 4 days. He also does report he has been having lower abdominal pain off and on for the past 1 month. He states he has chronic low back pain and chronic intermittent chest pain. He denies any new chest pain or shortness of breath. He rates his overall discomfort a 7/10. He denies any numbness/weakness, fever/chills, nausea or vomiting. He denies missing any dosages of his medication. Home Medications Home Medications Medication Instructions Recorded Confirmed Type acetaminophen [Tylenol] 650 mg PO Q6H PRN MDD 3G 04/10/18 02/06/19 History allopurinol 100 mg PO QAM 04/10/18 02/06/19 History amlodipine 10 mg PO DAILY 04/10/18 02/06/19 History ascorbic acid (vitamin C) 500 mg PO DAILY 04/10/18 02/06/19 History bisacodyl [Dulcolax (bisacodyl)] 10 mg CO DAILY PRN 04/10/18 02/06/19 History dutasteride-tamsulosin 1 cap PO HS 04/10/18 02/06/19 History ferrous sulfate 325 mg PO DAILY 04/10/18 02/06/19 History fluoxetine 40 mg PO DAILY 04/10/18 02/06/19 History furosemide 80 mg PO DAILY 04/10/18 02/06/19 History insulin lispro [Humalog U-100 1 sliding scale dose SUBCUT UD PRN 04/10/18 02/06/19 History Insulin] isosorbide mononitrate 30 mg PO DAILY 04/10/18 02/06/19 History metoprolol succinate 12.5 mg PO BID 04/10/18 02/06/19 History pregabalin [Lyrica] 300 mg PO BID 04/10/18 02/06/19 History ranitidine HCl 150 mg PO HS 04/10/18 02/06/19 History simvastatin 20 mg PO HS 04/10/18 02/06/19 History tamsulosin 0.4 mg PO DAILY 04/10/18 02/06/19 History apixaban 5 mg PO BID #60 tab 04/13/18 02/06/19 Rx carbidopa-levodopa [Sinemet] 1 tab PO BID 02/06/19 02/06/19 History guaifenesin 600 mg PO Q12H 02/06/19 02/06/19 History magnesium hydroxide [Milk of 30 ml PO DAILY PRN 02/06/19 02/06/19 History Magnesia] morphine 5 mg PO Q6H PRN 02/06/19 02/06/19 History morphine 10 mg PO Q12H 02/06/19 02/06/19 History morphine 10 mg PO Q6H PRN 02/06/19 02/06/19 History nystatin 1 applic TOPICAL TID 02/06/19 02/06/19 History pimavanserin [Nuplazid] 34 mg PO DAILY 02/06/19 02/06/19 History ropinirole 2 mg PO DAILY 02/06/19 02/06/19 History Allergies Allergy/AdvReac Type Severity Reaction Status Date / Time Penicillins Allergy Severe Verified 02/06/19 02:09 Bactrim Allergy Unknown . Verified 04/06/18 09:03 Cephalosporins Allergy Unknown Verified 02/06/19 02:10 sulfamethoxazole Allergy Unknown . Verified 02/06/19 02:10 trimethoprim Allergy Unknown . Verified 02/06/19 02:09 lisinopril AdvReac Intermediate Cough Verified 02/06/19 02:09 Past Med/Surg History Medical History Inferior vena cava occlusion Chest pain Hx of hypercoagulable state Mobitz (type) I (Wenckebach's) atrioventricular block Chronic diastolic CHF (congestive heart failure) History of pulmonary embolism Hyperlipemia TIA (transient ischemic attack) BPH (benign prostatic hyperplasia) Type 2 diabetes mellitus Gout Parkinson disease Hypertension (Acute) Pulmonary embolus (Acute) SIRS (systemic inflammatory response syndrome) (Acute) Family History Father Parkinson disease Familial tremor Other No pertinent family history Social History Preferred Language: [place] Communication Ability: Effective Technical Specialist Required: No Beliefs That Will Affect Care: None marital status: Current Living Situation: [facility] Other Information That Helps Us Care for You: No Feels Safe at Home: Yes Safety Concerns: Feels Safe At This Time Smoking Status: Former smoker Second Hand Exposure: No ; Hx Alcohol Use: No Hx Substance Use: No Review of Systems A total of 10 systems reviewed and were otherwise negative Physical Exam Vital Signs Vital Signs - 24 hr 02/05/19 21:35 02/05/19 21:44 02/05/19 21:47 Temperature 36.6 C Temperature Source Oral Sepsis Recent Fever Within 48 Hours No Sepsis New/Unexplained Change in Mental Status No Sepsis Action Taken by Nursing No Action Required Pulse Rate 57 L 57 L 60 Pulse Rate [Apical] Pulse Rate from SpO2 Sensor 58 L 60 Pulse Rhythm Regular Pulse Rhythm [Apical] Pulse Strength Normal Pulse Strength [Apical] Respiratory Rate 18 10 L 16 Respiratory Effort / Characteristics Non-Labored Spontaneous Respiratory Depth Normal Respiratory Pattern Regular Blood Pressure 123/63 123/63 Blood Pressure [Right Arm] Blood Pressure Mean 83 83 Blood Pressure Mean [Right Arm] Blood Pressure Position Lying Blood Pressure Position [Right Arm] Pulse Oximetry 98 98 98 Oxygen Delivery Method Room Air 02/05/19 22:00 02/05/19 22:03 02/05/19 22:04 Temperature Temperature Source Sepsis Recent Fever Within 48 Hours Sepsis New/Unexplained Change in Mental Status Sepsis Action Taken by Nursing Pulse Rate 58 L 54 L 55 L Pulse Rate [Apical] Pulse Rate from SpO2 Sensor 57 L 54 L 55 L Pulse Rhythm Pulse Rhythm [Apical] Pulse Strength Pulse Strength [Apical] Respiratory Rate 19 14 13 Respiratory Effort / Characteristics Respiratory Depth Respiratory Pattern Blood Pressure 115/63 Blood Pressure [Right Arm] Blood Pressure Mean 80 Blood Pressure Mean [Right Arm] Blood Pressure Position Blood Pressure Position [Right Arm] Pulse Oximetry 97 98 97 Oxygen Delivery Method 02/05/19 22:30 02/05/19 23:00 02/06/19 00:47 Temperature Temperature Source Sepsis Recent Fever Within 48 Hours Sepsis New/Unexplained Change in Mental Status Sepsis Action Taken by Nursing Pulse Rate 55 L 56 L 60 Pulse Rate [Apical] Pulse Rate from SpO2 Sensor 55 L 55 L 59 L Pulse Rhythm Pulse Rhythm [Apical] Pulse Strength Pulse Strength [Apical] Respiratory Rate 14 14 13 Respiratory Effort / Characteristics Respiratory Depth Respiratory Pattern Blood Pressure 120/64 132/66 125/68 Blood Pressure [Right Arm] Blood Pressure Mean 82 88 87 Blood Pressure Mean [Right Arm] Blood Pressure Position Blood Pressure Position [Right Arm] Pulse Oximetry 97 97 95 Oxygen Delivery Method 02/06/19 00:49 02/06/19 01:00 02/06/19 01:30 Temperature Temperature Source Sepsis Recent Fever Within 48 Hours Sepsis New/Unexplained Change in Mental Status Sepsis Action Taken by Nursing Pulse Rate 58 L 61 Pulse Rate [Apical] 58 L Pulse Rate from SpO2 Sensor 57 L 60 Pulse Rhythm Pulse Rhythm [Apical] Regular Pulse Strength Pulse Strength [Apical] Normal Respiratory Rate 14 8 L 7 L Respiratory Effort / Characteristics Non-Labored Respiratory Depth Normal Respiratory Pattern Regular Blood Pressure 134/69 130/61 Blood Pressure [Right Arm] 125/68 Blood Pressure Mean 90 84 Blood Pressure Mean [Right Arm] 87 Blood Pressure Position Blood Pressure Position [Right Arm] Lying Pulse Oximetry 95 94 93 Oxygen Delivery Method Room Air 02/06/19 02:00 02/06/19 02:30 02/06/19 03:00 Temperature Temperature Source Sepsis Recent Fever Within 48 Hours Sepsis New/Unexplained Change in Mental Status Sepsis Action Taken by Nursing Pulse Rate 59 L 58 L 59 L Pulse Rate [Apical] Pulse Rate from SpO2 Sensor 58 L 60 60 Pulse Rhythm Pulse Rhythm [Apical] Pulse Strength Pulse Strength [Apical] Respiratory Rate 16 16 16 Respiratory Effort / Characteristics Respiratory Depth Respiratory Pattern Blood Pressure 119/62 113/64 123/64 Blood Pressure [Right Arm] Blood Pressure Mean 81 80 83 Blood Pressure Mean [Right Arm] Blood Pressure Position Blood Pressure Position [Right Arm] Pulse Oximetry 90 91 92 Oxygen Delivery Method VITALS: Vitals are noted on the nurse's note and reviewed by myself. GENERAL: This is a 64-year-old male, in no acute distress, well-developed well-nourished. SKIN: The skin was without rashes. EARS: External auditory canals clear, tympanic membranes pearly escobar without erythema or effusion bilaterally. EYES: Pupils equal round and reactive to light and accommodation. NOSE: Patent, turbinates without inflammation or discharge. MOUTH: Mucous membranes moist. Tonsils are not enlarged. Pharynx without erythema or exudate. NECK: Supple without nuchal rigidity. No lymphadenopathy. HEART: Regular rate and rhythm without murmurs gallops or rubs. LUNGS: Clear to auscultation bilaterally without wheezes, rales or rhonchi. ABDOMEN: Positive bowel sounds x 4. Soft, mild lower abdominal tenderness to palpation. No guarding or rebound tenderness. EXTREMITIES: No pitting edema to the lower extremities. Tenderness to palpation of the left calf. Dorsalis pedis pulse 2+ bilaterally. NEURO: Patient was alert and oriented to person place and time. Distal sensation intact throughout. Course Consultations Consultation #1: Dr. Bowers [facility] hospitalist Administered Medications Heparin Sodium/Dextrose (Heparin Sodium/Dextrose) 25,000 units in 500 mls @ 33 mls/hr IV .[id number] [facility]; Protocol Stop: 03/08/19 00:59 Last Admin: 02/06/19 01:09 Dose: 1,650 units/hr, 33 mls/hr Documented by: [id number] Cosigned by: [id number] Sodium Chloride (Nss 1000ml) 1,000 mls @ 125 mls/hr IV .Q8H [facility] Stop: 03/08/19 04:50 Last Admin: 02/06/19 05:09 Dose: 125 mls/hr Documented by: [id number] Discontinued Medications Heparin Sodium (Porcine) (Heparin Sodium (Porcine)) Confirm Administered Dose 5,000 units .ROUTE .K-MED ONE Stop: 02/06/19 01:05 Last Admin: 02/06/19 01:09 Dose: 5,000 units Documented by: [id number] Cosigned by: [id number] Heparin Sodium/Dextrose () 1 ea IV NOW STA; Protocol Stop: 02/06/19 00:55 Last Admin: 02/06/19 01:10 Dose: Not Given Documented by: [id number] Heparin Sodium/Dextrose () 1 ea IV Q15M [facility]; Protocol Stop: 03/08/19 05:14 Last Admin: 02/06/19 05:46 Dose: 1 ea Documented by: [id number] Admin: 02/06/19 05:14 Dose: 1 ea Documented by: [id number] Morphine Sulfate (Morphine Sulfate) 6 mg IV NOW STA Stop: 02/06/19 00:55 Last Admin: 02/06/19 01:09 Dose: 6 mg Documented by: [id number] Medical Decision Making Differential Diagnosis Differential diagnosis includes DVT, superficial thrombosis, arterial thrombus, cellulitis, among others. Medical Records Attestation: I reviewed the patient's medical records. Home Medications Current Medication List: was personally reviewed by me Laboratory Data Attestation: I reviewed the patient's lab results. Result diagrams: 02/05/19 22:58 02/05/19 22:58 Lab Results 02/05/19 02/05/19 02/05/19 Range/Units 22:58 22:58 22:58 WBC 5.88 (4.8-10.8) K/uL RBC 4.31 L (4.7-6.1) M/uL Hgb 13.1 L (14.0-18.0) g/dL Hct 39.0 L (42-52) % MCV 90.5 (80-100) fL MCH 30.4 (25-34) pg MCHC 33.6 (32-36) g/dL RDW Std Deviation 48.1 H (36.4-46.3) fL RDW Coeff of Sarai 14.4 (11.5-14.5) % Plt Count 140 (130-400) K/uL MPV 9.2 (7.4-10.4) fL Immature Gran % (Auto) 0.3 % Neut % (Auto) 56.9 % Lymph % (Auto) 30.3 % [place] % (Auto) 7.1 % Eos % (Auto) 4.9 % Baso % (Auto) 0.5 % Immature Gran # (Auto) 0.02 (0.00-0.02) K/uL Neut # (Auto) 3.34 (1.4-6.5) K/uL Lymph # (Auto) 1.78 (1.2-3.4) K/uL [place] # (Auto) 0.42 (0.11-0.59) K/uL Eos # (Auto) 0.29 (0-0.5) K/uL Baso # (Auto) 0.03 (0-0.2) K/uL PT 11.2 (9.0-12.0) Seconds INR 1.1 (0.9-1.1) APTT 32.7 H (21.0-31.0) Seconds PTT Ratio 1.2 Sodium 140 (136-145) mmol/L Potassium 3.7 (3.5-5.1) mmol/L Chloride 103 (98-107) mmol/L Carbon Dioxide 35 H (21-32) mmol/L Anion Gap 2.0 L (3-11) BUN 13 (7-18) mg/dl Creatinine 0.94 (0.6-1.4) mg/dl Est Cr Clr Drug Dosing 100.1 ml/min Est GFR ( Amer) 98.2 Est GFR (Non-Af Amer) 84.7 BUN/Creatinine Ratio 13.3 (10-20) Glucose 146 H (70-99) mg/dl Calcium 8.7 (8.5-10.1) mg/dl Total Bilirubin 0.3 (0.2-1) mg/dl AST 14 L (15-37) U/L ALT 15 (12-78) U/L Alkaline Phosphatase 156 H (45-117) U/L Troponin I < 0.015 (0-0.045) ng/ml Total Protein 6.9 (6.4-8.2) gm/dl Albumin 2.9 L (3.4-5.0) gm/dl Globulin 4.0 (2.5-4.0) gm/dl Albumin/Globulin Ratio 0.7 L (0.9-2) Imaging Data Attestation: I personally reviewed and interpreted this imaging study as follows : Radiologist's Impression: Doppler ultrasound from [facility] reviewed. Bilateral ultrasounds were performed. This ultrasound showed deep venous thrombosis to the left common femoral vein and profunda femoris vein. Blood Pressure Blood Pressure Findings: Normal blood pressure Blood Pressure Disposition: did not require urgent referral MDM Narrative The patient is a 64-year-old male who presents today complaining of left leg pain. Patient was diagnosed with a DVT on outpatient ultrasound performed 2 days ago. Patient has been on Eliquis for some time and no changes were made to his medications. It is certainly concerning that the patient developed an additional DVT while on Eliquis. For this reason, I do feel the patient will need to stay for anticoagulation. He was given IV heparin and admitted to the [facility] Hospitalist service for further evaluation and care. Patient and his son were agreeable with this plan of care. Case was discussed with Dr. Marcos, who agreed with the evaluation and treatment plan. Impression & Plan Deep vein thrombosis (DVT) of left lower extremity Discharge Plan Visit Data *Final* Discharge Date/Time: 02/06/19 04:11 Chief Complaint: Leg Injury/Pain Stated Complaint: blood clot in left leg ED Provider: [facility] ED Midlevel Provider: Cheryl Silveira Discharge Problem: Deep vein thrombosis (DVT) of left lower extremity Patient Disposition: Admitted As Inpatient Discharge Instructions Interventions: ED Discharge Assessment Last Done: 02/06/19 04:11 Discharge Problem: Deep vein thrombosis (DVT) of left lower extremity Qualifiers: Affected thrombotic vein of extremity: femoral Chronicity: acute Qualified Code(s): I82.412 - Acute embolism and thrombosis of left femoral vein
--- NOTE | 2019-02-06 06:41 | XRay Report ---
XR abdomen 2V w PA chest HISTORY: 64 years-old Male lower abd pain acute lower abdominal pain COMPARISON: CT abdomen and pelvis 04/27/2018 TECHNIQUE: PA view of the chest with erect and supine views of the abdomen FINDINGS: Cardiomediastinal and hilar silhouettes are within normal limits. No pneumothorax, pleural effusion, focal airspace consolidation or overt pulmonary edema. Minimal linear right midlung opacity suggests atelectasis or scarring. Bones of the chest appear grossly intact. Nonobstructive bowel gas pattern. Aortobiiliac stent graft. IVC filter. 6 mm calcification of the inf erior pole left kidney redemonstrated. No pneumatosis or pneumoperitoneum. Moderate fecal retention. Degenerative changes of the spine, pelvis and hips. IMPRESSION: 1. No acute processes of the chest. 2. Nonobstructive bowel gas pattern. 3. Moderate fecal retention. 4. Left nephrolithiasis. The above report was generated using voice recognition software. It may contain grammatical, syntax o r spelling errors. Electronically signed by: Rosas Granado M.D. 02/06/2019 6:40 AM
--- NOTE | 2019-02-06 07:17 | Ultrasound Report ---
US duplex aorta/iliacs HISTORY: 64 years-old Male IVC filter with iliac stents - rule out clots patient has history of IVC filter. Clinical concern for possible thrombus. COMPARISON: CT abdomen and pelvis 04/27/2018 TECHNIQUE: Multiple real time sonographic images of the IVC and iliac veins were obtained assessing g rayscale appearance, color and spectral flow FINDINGS/IMPRESSION: Study is limited secondary to body habitus and obscuring bowel gas. Visualized IVC appears unremarkab le with spectral flow noted. The IVC filter is not definitively seen. Color Doppler images demonstrat e flow within the region of the mid and distal IVC and right iliac vein. The left iliac vein is obscu red by bowel gas. The above report was generated using voice recognition software. It may contain grammatical, syntax o r spelling errors. Electronically signed by: Rosas Granado M.D. 02/06/2019 7:16 AM
[2019-02-06] MEDS: INSULIN ASPART 100 UNITS/ML 3 ML PEN SC SCH ×4 (08:49→20:41)
[2019-02-06] MEDS: FERROUS SULFATE 325 MG TAB PO SCH (08:53)
[2019-02-06] MEDS: AVODART~ORDER AWAITING ACTION SCH ×3 (08:53→23:44)
[2019-02-06] MEDS: ISOSORBIDE MONO EXTENDED REL 30 MG TABCR PO SCH (08:54)
[2019-02-06] MEDS: FUROSEMIDE 80 MG TAB PO SCH (08:55)
[2019-02-06] MEDS: NYSTATIN POWDER 15GM BTL EXT SCH ×3 (08:56→20:35)
[2019-02-06] MEDS: guaiFENesin 600 MG TABCR PO SCH ×2 (08:56→20:35)
[2019-02-06] MEDS: AMLODIPINE BESYLATE 5 MG TAB PO SCH (08:56)
[2019-02-06] MEDS: FLUOXETINE HCL 20 MG CAP PO SCH (08:57)
[2019-02-06] MEDS: ROPINIROLE HCL 1 MG TABLET PO SCH (08:57)
[2019-02-06] MEDS: CARBIDOPA/LEVODOPA 25/100MG TAB PO SCH ×2 (08:58→20:34)
[2019-02-06] MEDS: ALLOPURINOL 100 MG TAB PO SCH (08:59)
[2019-02-06] MEDS: METOPROLOL SUCC 25MG EXT REL TAB PO SCH ×2 (08:59→20:38)
[2019-02-06] MEDS: ASCORBIC ACID 500 MG TAB PO SCH (08:59)
[2019-02-06] MEDS: MoRPHine SULFATE 2 MG/ML CARP IV PRN (09:10)
[2019-02-06] MEDS: PREGABALIN 150 MG CAP PO SCH ×2 (09:10→20:36)
--- NOTE | 2019-02-06 10:56 | Family Medicine Progress Note ---
Date of Service February 06, 2019 Assessment & Plan (1) Deep vein thrombosis (DVT) of left lower extremity: Mr. 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 Pt seen this AM, and was arousable but easily fell asleep again. States he was still in pain in left leg. On exam, he wakes easily, but just as easily falls asleep. Was AAO to self only. Was tender to abd palpation on the right, upper and lower and had bilateral lower extremity pain, more painful in left lower extremity. -will continue with heparin drip per protocol, continue to monitor ptt -will schedule tylenol 650 q6h for pain; continue morphine PRN if further pain control needed. -will consult Hematology/Dr. Burgess for recs given pt's clotting Hx on various meds-of note states he was told coumadin was CI -will continue to monitor Supervising Physician Co-Signing Physician Notes I personally examined the patient and verified all hansen points of history and e xam, discussed case, and agree with decision making with Dr Lao. Patient seen in follow-up of same day admission history and physical. Notes leg pain is still not where it needs to be, but notes that Tylenol helped. He also notes that sometime in the past he believes that Dr. Arguello told him that warfarin would not help with his hypercoagulable state. Further he notes to me that he feels that with his prior history of clotting forming 1 clot on Eliquis in his mind does not constitute treatment failure. Vitals noted, in general he is awake and alert pleasant no distress. HEENT normal cephalic atraumatic mucous members moist. Breathing unlabored no accessory muscle use good effort. DVTwhile on Eliquis. He was on 5 mg twice daily, he is at SNF so compliance appears to be reliable. Heparin drip for now, given the complexity of his situation, will ask coagulation physician for insight. stable for med surg Results & Data Vital Signs (Past 12 Hours) Vital Signs Temp Pulse Pulse Resp BP BP Pulse Ox 02/06/19 07:12 36.4 C L 51 L 20 110/60 93 02/06/19 04:50 36.8 C 53 L 20 119/67 100 02/06/19 04:00 56 L 9 L 110/65 96 02/06/19 03:30 56 L 10 L 129/68 96 02/06/19 03:00 59 L 16 123/64 92 02/06/19 02:30 58 L 16 113/64 91 02/06/19 02:00 59 L 16 119/62 90 02/06/19 01:30 61 7 L 130/61 93 02/06/19 01:00 58 L 8 L 134/69 94 02/06/19 00:49 58 L 14 125/68 95 02/06/19 00:47 60 13 125/68 95 02/05/19 23:00 56 L 14 132/66 97 PG Care Time/CCT Total # of Minutes Spent Total Time Spent with Patient: Total time spent is greater than 50% in coordination of care (as documented) at patient's floor/unit and/or counseling patient: (1) Deep vein thrombosis (DVT) of left lower extremity Affected thrombotic vein of extremity: femoral Chronicity: acute Qualified Code(s): I82.412 - Acute embolism and thrombosis of left femoral vein
[2019-02-06 11:50] LABS: Partial Thromboplastin Ratio > 5.1
[2019-02-06 11:54] LABS: Partial Thromboplastin Time > 139.0 Seconds (21.0-31.0)
[2019-02-06] MEDS: TAMSULOSIN HCL 0.4 MG CAP PO SCH (12:00)
[2019-02-06 13:31] LABS: Partial Thromboplastin Ratio 2.8
[2019-02-06 13:33] LABS: Partial Thromboplastin Time 76.3 Seconds (21.0-31.0)
[2019-02-06] MEDS: ACETAMINOPHEN 325 MG TAB PO SCH ×2 (18:36→23:43)
[2019-02-06 20:12] LABS: Partial Thromboplastin Ratio 2.7
[2019-02-06 20:18] LABS: Partial Thromboplastin Time 72.5 Seconds (21.0-31.0)
[2019-02-06] MEDS: SIMVASTATIN 20 MG TAB PO SCH (20:35)
[2019-02-07 02:49] LABS: Basophils # (auto) 0.01 K/uL (0-0.2); Basophils % (auto) 0.2 %; Eosinophils # (auto) 0.28 K/uL (0-0.5); Hemoglobin 11.9 g/dL (14.0-18.0); Immature Granulocytes # (auto) 0.02 K/uL (0.00-0.02); Immature Granulocytes % (auto) 0.4 %; Mean Corpuscular Hemoglobin 29.6 pg (25-34); Mean Corpuscular Hgb Conc 33.1 g/dL (32-36); Mean Corpuscular Volume 89.6 fL (80-100); Mean Platelet Volume 9.3 fL (7.4-10.4); Monocytes # (auto) 0.31 K/uL (0.11-0.59); Monocytes % (auto) 5.6 %; Neutrophils # (auto) 3.44 K/uL (1.4-6.5); Neutrophils % (auto) 61.8 %; Platelet Count 131 K/uL (130-400); RDW Coefficient of Variation 14.3 % (11.5-14.5); RDW Standard Deviation 47.3 fL (36.4-46.3); Red Blood Count 4.02 M/uL (4.7-6.1); White Blood Count 5.56 K/uL (4.8-10.8)
[2019-02-07 03:07] LABS: BUN Creatinine Ratio 12.2 (10-20); Calcium 8.4 mg/dl (8.5-10.1); Creatinine Clr Calc Pharmacy 93.6 ml/min; Est GFR (African American) 92.2; Est GFR (Non-African American) 79.6; Potassium 3.7 mmol/L (3.5-5.1)
[2019-02-07 03:09] LABS: INR 1.1 (0.9-1.1); Partial Thromboplastin Ratio 2.4
[2019-02-07 03:10] LABS: Partial Thromboplastin Time 64.4 Seconds (21.0-31.0)
[2019-02-07] MEDS: SODIUM CHLORIDE 0.9% 1000ML 1,000 ML IV SCH ×3 (04:23→19:53)
[2019-02-07] MEDS: ACETAMINOPHEN 325 MG TAB PO SCH ×4 (05:47→23:57)
[2019-02-07 07:39] LABS: Partial Thromboplastin Ratio 2.3
[2019-02-07] MEDS: AVODART~ORDER AWAITING ACTION SCH ×3 (07:49→23:57)
[2019-02-07 08:02] LABS: Partial Thromboplastin Time 63.6 Seconds (21.0-31.0)
[2019-02-07] MEDS: INSULIN ASPART 100 UNITS/ML 3 ML PEN SC SCH ×4 (09:18→21:36)
[2019-02-07] MEDS: FUROSEMIDE 80 MG TAB PO SCH (09:32)
[2019-02-07] MEDS: ISOSORBIDE MONO EXTENDED REL 30 MG TABCR PO SCH (09:32)
[2019-02-07] MEDS: FERROUS SULFATE 325 MG TAB PO SCH (09:32)
[2019-02-07] MEDS: guaiFENesin 600 MG TABCR PO SCH ×2 (09:33→21:49)
[2019-02-07] MEDS: PREGABALIN 150 MG CAP PO SCH ×2 (09:33→21:53)
[2019-02-07] MEDS: AMLODIPINE BESYLATE 5 MG TAB PO SCH (09:33)
[2019-02-07] MEDS: FLUOXETINE HCL 20 MG CAP PO SCH (09:34)
[2019-02-07] MEDS: ROPINIROLE HCL 1 MG TABLET PO SCH (09:35)
[2019-02-07] MEDS: ALLOPURINOL 100 MG TAB PO SCH (09:36)
[2019-02-07] MEDS: CARBIDOPA/LEVODOPA 25/100MG TAB PO SCH ×2 (09:36→21:49)
[2019-02-07] MEDS: ASCORBIC ACID 500 MG TAB PO SCH (09:36)
[2019-02-07] MEDS: METOPROLOL SUCC 25MG EXT REL TAB PO SCH ×2 (09:38→21:48)
[2019-02-07] MEDS: NYSTATIN POWDER 15GM BTL EXT SCH ×3 (09:43→21:49)
[2019-02-07] MEDS: TAMSULOSIN HCL 0.4 MG CAP PO SCH (11:08)
[2019-02-07] MEDS: HEPARIN SODIUM/DEXTROSE 25,000 UNITS/500 ML BAG IV SCH (13:34)
--- NOTE | 2019-02-07 14:57 | Consultation ---
Date of Consultation February 07, 2019 History of Present Illness Reason for Consultation: Anticoagulation management in this 64 year old man with a history of multiple VTEs, most recently in the LLE on Apixaban 5 mg BID. Attending Physician: Radha Guerrero MD Allergies Allergy/AdvReac Type Severity Reaction Status Date / Time Penicillins Allergy Severe Verified 02/06/19 02:09 Bactrim Allergy Unknown . Verified 04/06/18 09:03 Cephalosporins Allergy Unknown Verified 02/06/19 02:10 sulfamethoxazole Allergy Unknown . Verified 02/06/19 02:10 trimethoprim Allergy Unknown . Verified 02/06/19 02:09 lisinopril AdvReac Intermediate Cough Verified 02/06/19 02:09 Home Medications Home Medications Medication Instructions Recorded Confirmed Type acetaminophen [Tylenol] 650 mg PO Q6H PRN MDD 3G 04/10/18 02/06/19 History allopurinol 100 mg PO QAM 04/10/18 02/06/19 History amlodipine 10 mg PO DAILY 04/10/18 02/06/19 History ascorbic acid (vitamin C) 500 mg PO DAILY 04/10/18 02/06/19 History bisacodyl [Dulcolax (bisacodyl)] 10 mg SD DAILY PRN 04/10/18 02/06/19 History dutasteride-tamsulosin 1 cap PO HS 04/10/18 02/06/19 History ferrous sulfate 325 mg PO DAILY 04/10/18 02/06/19 History fluoxetine 40 mg PO DAILY 04/10/18 02/06/19 History furosemide 80 mg PO DAILY 04/10/18 02/06/19 History insulin lispro [Humalog U-100 1 sliding scale dose SUBCUT UD PRN 04/10/18 02/06/19 History Insulin] isosorbide mononitrate 30 mg PO DAILY 04/10/18 02/06/19 History metoprolol succinate 12.5 mg PO BID 04/10/18 02/06/19 History pregabalin [Lyrica] 300 mg PO BID 04/10/18 02/06/19 History ranitidine HCl 150 mg PO HS 04/10/18 02/06/19 History simvastatin 20 mg PO HS 04/10/18 02/06/19 History tamsulosin 0.4 mg PO DAILY 04/10/18 02/06/19 History apixaban 5 mg PO BID #60 tab 04/13/18 02/06/19 Rx carbidopa-levodopa [Sinemet] 1 tab PO BID 02/06/19 02/06/19 History guaifenesin 600 mg PO Q12H 02/06/19 02/06/19 History magnesium hydroxide [Milk of 30 ml PO DAILY PRN 02/06/19 02/06/19 History Magnesia] morphine 5 mg PO Q6H PRN 02/06/19 02/06/19 History morphine 10 mg PO Q12H 02/06/19 02/06/19 History morphine 10 mg PO Q6H PRN 02/06/19 02/06/19 History nystatin 1 applic TOPICAL TID 02/06/19 02/06/19 History pimavanserin [Nuplazid] 34 mg PO DAILY 02/06/19 02/06/19 History ropinirole 2 mg PO DAILY 02/06/19 02/06/19 History Patient History Medical History Inferior vena cava occlusion Chest pain Hx of hypercoagulable state Mobitz (type) I (Wenckebach's) atrioventricular block Chronic diastolic CHF (congestive heart failure) History of pulmonary embolism Hyperlipemia TIA (transient ischemic attack) BPH (benign prostatic hyperplasia) Type 2 diabetes mellitus Gout Parkinson disease Hypertension (Acute) Pulmonary embolus (Acute) SIRS (systemic inflammatory response syndrome) (Acute) Family History Father Parkinson disease Familial tremor Other No pertinent family history Social History Preferred Language: Nicaraguan Communication Ability: Effective Road Gang Supervisor Required: No Beliefs That Will Affect Care: None marital status: Current Living Situation: Custodial Other Information That Helps Us Care for You: No Feels Safe at Home: Yes Safety Concerns: Feels Safe At This Time Smoking Status: Former smoker Second Hand Exposure: No ; Hx Alcohol Use: No Hx Substance Use: No Results & Data Vital Signs (Past 12 Hours) Vital Signs Temp Pulse Pulse Resp BP Pulse Ox 02/07/19 09:26 63 129/77 02/07/19 08:11 36.4 C L 62 18 130/76 97 Addendum (Blank) Addendum February 07, 2019 17:12 History obtained from [facility], [facility], [facility] via [facility], [facility] notes, patient. Asked to provide management input for this 64 year old man with a complex history of thrombophilia, multiple VTE events (including life threatening PE events) who is here for treatment of LLE DVT. Patient most recently hospitalized at [facility] on 02/06/19 with a diagnosis of non-occluding thrombus in the LLE (common femoral and profunda femoral vessels). This was done on 02/03/19 at [facility] by [facility]. There is no comment as to the estimation of age, and of note, the patient has a history of chronic thrombus in the femoral vessels of the LLE, per our radiology reports. 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 On review of the old [facility] records, he did indeed have a AT3 level of 67% that was done in 2003. He was on heparin at that time, so the result is questionable. He has subsequently had normal levels of AT3 done at [facility] (111% and 105%) in 2015, drawing the accuracy of our 2004 result into question. However, the studies were done in the face of an acute thrombus, which is never entirely accurate. Similarly, a lupus anticoagulant screen was done here in 2003 and resulted as positive. No more specific assays (anticardiolipin antibody or antiphospholipid antibody) testing was done. These results are again questionable as the patient was on heparin. Of note, anticardiolipin IgG and IgM and antibeta2 glycoprotein IgG and IgM antibodies done at [facility] in 2015 were negative. In sum, I question both the diagnosis of lupus anticoagulant and AT3 deficiencies. None the less, the patient is highly thrombophilic, most likely due to unknown etiology. While he admits to poor compliance in the past with both lovenox and warfarin, he has had multiple VTE events, including two saddle PE events. There is no doubt that he needs life- long anticoagulation. He has had an IVC filter in place since Feb 2004. There are multiple questions about whether or not he clotted on particular anticoagulants. In the fall of 2003, following his massive PE, he was admitted with additional PE (INR 1.2 at that time). He was made therapeutic in house. He was discharged to home but came in again with shortness of breath. CT showed stable PE, however there was a question of enlargement of a thrombus in his RLE. FOR THAT REASON, Dr. Valencia recommended switching the patient to enoxaparin 1mg/kg bid and he was on this for an extensive period of time. During this time when he was on enoxaparin, he admits to "occasional" missed doses and he had additional VTE events including DVT, another saddle embolism (thought to have originate above the IVC filter, and a question of a thrombus within the IVC filter ([facility] felt this was not the case). He has stents within his iliac veins due to previous thrombus and a recent study done on this admission shows flow in the right and a suboptimal study on the left. RECOMMENDATIONS 1. Consult with radiology to determine if the current clot is acute or chronic. May need to get the scans from [facility] or repeat the study here. Have them compared to the scans of 02/24/16 and 01/23/17 which shows chronic, non-occlusive thrombus. If the current findings are consistent with previous, no change in anticoagulant is warranted. 2. IVC filter in place should be providing protection to lungs. I would have vascular surgery evaluate the filter for patency as the patient says the filter was "crushed" at [facility] ( I could find no notes to this effect). Given his immobility and degree of thrombophilia, he needs a functioning IVC filter. 3. If, in fact, there is a new thrombus and this does represent an Eliquis failure, I would switch him to warfarin with a target INR of 2.5-3.5. In my opinion, the data supporting the diagnosis of a warfarin failure was weak in 2003. I believe he will have better compliance with his meds now that he is in a nursing facility. Given the question of failure, I would target a higher INR range. I would begin with 5 mg doses (he was on 2.5 mg/day at one point but his INR was low at that time), overlapping 5 days with parenteral therapy and a therapeutic INR on two consecutive days. I have discussed this option with Mr. Gonzalez and he is agreeable. 4. I do not believe he has ATIII deficiency or lupus anticoagulant. An AT 3 level can be done while the patient is on Coumadin (14 days from last dose of heparin) and I would recommend this at some point in the future, to confirm.
--- NOTE | 2019-02-07 15:10 | Consultation ---
Date of Consultation February 07, 2019 History of Present Illness Attending Physician: Radha Guerrero MD Allergies Allergy/AdvReac Type Severity Reaction Status Date / Time Penicillins Allergy Severe Verified 02/06/19 02:09 Bactrim Allergy Unknown . Verified 04/06/18 09:03 Cephalosporins Allergy Unknown Verified 02/06/19 02:10 sulfamethoxazole Allergy Unknown . Verified 02/06/19 02:10 trimethoprim Allergy Unknown . Verified 02/06/19 02:09 lisinopril AdvReac Intermediate Cough Verified 02/06/19 02:09 Home Medications Home Medications Medication Instructions Recorded Confirmed Type acetaminophen [Tylenol] 650 mg PO Q6H PRN MDD 3G 04/10/18 02/06/19 History allopurinol 100 mg PO QAM 04/10/18 02/06/19 History amlodipine 10 mg PO DAILY 04/10/18 02/06/19 History ascorbic acid (vitamin C) 500 mg PO DAILY 04/10/18 02/06/19 History bisacodyl [Dulcolax (bisacodyl)] 10 mg FL DAILY PRN 04/10/18 02/06/19 History dutasteride-tamsulosin 1 cap PO HS 04/10/18 02/06/19 History ferrous sulfate 325 mg PO DAILY 04/10/18 02/06/19 History fluoxetine 40 mg PO DAILY 04/10/18 02/06/19 History furosemide 80 mg PO DAILY 04/10/18 02/06/19 History insulin lispro [Humalog U-100 1 sliding scale dose SUBCUT UD PRN 04/10/18 02/06/19 History Insulin] isosorbide mononitrate 30 mg PO DAILY 04/10/18 02/06/19 History metoprolol succinate 12.5 mg PO BID 04/10/18 02/06/19 History pregabalin [Lyrica] 300 mg PO BID 04/10/18 02/06/19 History ranitidine HCl 150 mg PO HS 04/10/18 02/06/19 History simvastatin 20 mg PO HS 04/10/18 02/06/19 History tamsulosin 0.4 mg PO DAILY 04/10/18 02/06/19 History apixaban 5 mg PO BID #60 tab 04/13/18 02/06/19 Rx carbidopa-levodopa [Sinemet] 1 tab PO BID 02/06/19 02/06/19 History guaifenesin 600 mg PO Q12H 02/06/19 02/06/19 History magnesium hydroxide [Milk of 30 ml PO DAILY PRN 02/06/19 02/06/19 History Magnesia] morphine 5 mg PO Q6H PRN 02/06/19 02/06/19 History morphine 10 mg PO Q12H 02/06/19 02/06/19 History morphine 10 mg PO Q6H PRN 02/06/19 02/06/19 History nystatin 1 applic TOPICAL TID 02/06/19 02/06/19 History pimavanserin [Nuplazid] 34 mg PO DAILY 02/06/19 02/06/19 History ropinirole 2 mg PO DAILY 02/06/19 02/06/19 History Patient History Medical History Inferior vena cava occlusion Chest pain Hx of hypercoagulable state Mobitz (type) I (Wenckebach's) atrioventricular block Chronic diastolic CHF (congestive heart failure) History of pulmonary embolism Hyperlipemia TIA (transient ischemic attack) BPH (benign prostatic hyperplasia) Type 2 diabetes mellitus Gout Parkinson disease Hypertension (Acute) Pulmonary embolus (Acute) SIRS (systemic inflammatory response syndrome) (Acute) Family History Father Parkinson disease Familial tremor Other No pertinent family history Social History Preferred Language: Dutch Communication Ability: Effective 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
--- NOTE | 2019-02-07 16:39 | Family Medicine Progress Note ---
Date of Service February 07, 2019 Assessment & Plan (1) Deep vein thrombosis (DVT) of left lower extremity: Mr. 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 He was admitted for pain treatment and further management. Acute DVT with h/o recurrent DVT/PE -outside records from [facility] showing acute DVT in L common femoral vein / profunda femoris vein on 02/03/19 doppler -false positive antithrombin III, no concern of APA syndrome. Unclear of the etiology of extensive recurrent thromboembolism. -Repeat imaging to confirm acute DVT and not chronic. -If acute - this is treatment failure with eliquis. Also, the coumadin failure in past - unreliable due to patient's compliance. -current heparin drip; will start coumadin per recs of Dr. Arguello -on scheduled tylenol for pain; morphine available prn if pain still not controlled. -question of occluded IVC filter- per vascular surgery - no intervention. Hx of CHF -Echo 03/2018- EF 60-65% with mild LVH -continue home meds Hx of TIA -continue home statin -currently on heparin drip-holding home Eliquis Type 2 DM -ISS Gout -continue home allopurinol Parkinson's -continue home meds GERD -continue home meds BPH -continue home meds Mood disorder -continue home meds FEN/GI: carb consistent DVT proph: heparin gtt currently CODE STATUS: DNR/DNI Dispo: [facility] once on oral anticoagulant (2) GERD (gastroesophageal reflux disease): (3) Chronic diastolic CHF (congestive heart failure): (4) History of pulmonary embolism: Supervising Physician Co-Signing Physician Notes Resident Physician Supervision Note: I independently interviewed and examined the patient and verified the hansen history and physical, reviewed labs and image studies, discussed the case with the resident Dr. Lao and agree with the findings and care plan. Subjective Mr. Gonzalez was awake and alert this AM. No acute distress No acute events overnight, states pain well controlled. Denied current ZEPEDA, sore throat, cough, runny nose, SOB, chest pain, palpitations, N/V, diarrhea or constipation. Review of Systems Review of Systems: All systems reviewed & are unremarkable except as noted in HPI & below Physical Exam Physical Exam: General: Alert, oriented. No acute distress HEENT: NC/AT, PERRLA, EOMI, oropharynx moist. Chest: Nontender to palpation. CV: RRR, Normal s1, s2. No murmurs appreciated Resp: Breath sounds clear bilaterally, no increased effort of breathing. Abdomen:Soft, tender on right and lower abd. some guarding. Extremities: bilateral lower extremity pain and swelling, more painful in left lower extremity. Results & Data Vital Signs (Past 12 Hours) Vital Signs Temp Pulse Pulse Resp BP Pulse Ox 02/07/19 15:15 36.6 C 74 18 101/65 98 02/07/19 09:26 63 129/77 02/07/19 08:11 36.4 C L 62 18 130/76 97 Laboratory Results Laboratory Results - last 24 hr 02/06/19 02/06/19 02/07/19 19:34 20:16 02:34 WBC 5.56 RBC 4.02 L Hgb 11.9 L Hct 36.0 L MCV 89.6 MCH 29.6 MCHC 33.1 RDW Std Deviation 47.3 H RDW Coeff of Sarai 14.3 Plt Count 131 MPV 9.3 Immature Gran % (Auto) 0.4 Neut % (Auto) 61.8 Lymph % (Auto) 27.0 Hughes % (Auto) 5.6 Eos % (Auto) 5.0 Baso % (Auto) 0.2 Immature Gran # (Auto) 0.02 Neut # (Auto) 3.44 Lymph # (Auto) 1.50 Hughes # (Auto) 0.31 Eos # (Auto) 0.28 Baso # (Auto) 0.01 PT INR APTT 72.5 H* PTT Ratio 2.7 Sodium Potassium Chloride Carbon Dioxide Anion Gap BUN Creatinine Est Cr Clr Drug Dosing Est GFR ( Amer) Est GFR (Non-Af Amer) BUN/Creatinine Ratio Glucose POC Glucose 109 H Calcium 02/07/19 02/07/19 02/07/19 02:34 02:34 07:06 WBC RBC Hgb Hct MCV MCH MCHC RDW Std Deviation RDW Coeff of Sarai Plt Count MPV Immature Gran % (Auto) Neut % (Auto) Lymph % (Auto) Hughes % (Auto) Eos % (Auto) Baso % (Auto) Immature Gran # (Auto) Neut # (Auto) Lymph # (Auto) Hughes # (Auto) Eos # (Auto) Baso # (Auto) PT 11.0 INR 1.1 APTT 64.4 H* 63.6 H* PTT Ratio 2.4 2.3 Sodium 142 Potassium 3.7 Chloride 105 Carbon Dioxide 31 Anion Gap 6.0 BUN 12 Creatinine 0.99 Est Cr Clr Drug Dosing 93.6 Est GFR ( Amer) 92.2 Est GFR (Non-Af Amer) 79.6 BUN/Creatinine Ratio 12.2 Glucose 123 H POC Glucose Calcium 8.4 L 02/07/19 02/07/19 08:11 12:08 WBC RBC Hgb Hct MCV MCH MCHC RDW Std Deviation RDW Coeff of Sarai Plt Count MPV Immature Gran % (Auto) Neut % (Auto) Lymph % (Auto) Hughes % (Auto) Eos % (Auto) Baso % (Auto) Immature Gran # (Auto) Neut # (Auto) Lymph # (Auto) Hughes # (Auto) Eos # (Auto) Baso # (Auto) PT INR APTT PTT Ratio Sodium Potassium Chloride Carbon Dioxide Anion Gap BUN Creatinine Est Cr Clr Drug Dosing Est GFR ( Amer) Est GFR (Non-Af Amer) BUN/Creatinine Ratio Glucose POC Glucose 126 H 122 H Calcium Medications Administered Home Medications acetaminophen [Tylenol] 650 mg PO Q6H PRN MDD 3G 04/10/18 [History Confirmed 02/06/19] allopurinol 100 mg PO QAM 04/10/18 [History Confirmed 02/06/19] amlodipine 10 mg PO DAILY 04/10/18 [History Confirmed 02/06/19] ascorbic acid (vitamin C) 500 mg PO DAILY 04/10/18 [History Confirmed 02/06/19] bisacodyl [Dulcolax (bisacodyl)] 10 mg CO DAILY PRN 04/10/18 [History Confirmed 02/06/19] dutasteride-tamsulosin 1 cap PO HS 04/10/18 [History Confirmed 02/06/19] ferrous sulfate 325 mg PO DAILY 04/10/18 [History Confirmed 02/06/19] fluoxetine 40 mg PO DAILY 04/10/18 [History Confirmed 02/06/19] furosemide 80 mg PO DAILY 04/10/18 [History Confirmed 02/06/19] insulin lispro [Humalog U-100 Insulin] 1 sliding scale dose SUBCUT UD PRN 04/10/18 [History Confirmed 02/06/19] isosorbide mononitrate 30 mg PO DAILY 04/10/18 [History Confirmed 02/06/19] metoprolol succinate 12.5 mg PO BID 04/10/18 [History Confirmed 02/06/19] pregabalin [Lyrica] 300 mg PO BID 04/10/18 [History Confirmed 02/06/19] ranitidine HCl 150 mg PO HS 04/10/18 [History Confirmed 02/06/19] simvastatin 20 mg PO HS 04/10/18 [History Confirmed 02/06/19] tamsulosin 0.4 mg PO DAILY 04/10/18 [History Confirmed 02/06/19] apixaban 5 mg PO BID #60 tab 04/13/18 [Rx Confirmed 02/06/19] carbidopa-levodopa [Sinemet] 1 tab PO BID 02/06/19 [History Confirmed 02/06/19] guaifenesin 600 mg PO Q12H 02/06/19 [History Confirmed 02/06/19] magnesium hydroxide [Milk of Magnesia] 30 ml PO DAILY PRN 02/06/19 [History Confirmed 02/06/19] morphine 5 mg PO Q6H PRN 02/06/19 [History Confirmed 02/06/19] morphine 10 mg PO Q12H 02/06/19 [History Confirmed 02/06/19] morphine 10 mg PO Q6H PRN 02/06/19 [History Confirmed 02/06/19] nystatin 1 applic TOPICAL TID 02/06/19 [History Confirmed 02/06/19] pimavanserin [Nuplazid] 34 mg PO DAILY 02/06/19 [History Confirmed 02/06/19] ropinirole 2 mg PO DAILY 02/06/19 [History Confirmed 02/06/19] Active Medications Acetaminophen (Tylenol) 650 mg PO Q6H [facility] Stop: 03/08/19 17:59 Last Admin: 02/07/19 12:09 Dose: 650 mg Documented by: Allopurinol (Zyloprim) 100 mg PO QAM [facility] Stop: 03/08/19 08:59 Last Admin: 02/07/19 09:36 Dose: 100 mg Documented by: Amlodipine Besylate (Norvasc) 10 mg PO DAILY [facility] Stop: 03/08/19 08:59 Last Admin: 02/07/19 09:33 Dose: 10 mg Documented by: Ascorbic Acid (Vitamin C) 500 mg PO DAILY [facility] Stop: 03/08/19 08:59 Last Admin: 02/07/19 09:36 Dose: 500 mg Documented by: Bisacodyl (Dulcolax) 10 mg CO DAILY PRN PRN Reason: Constipation Stop: 03/08/19 04:50 Carbidopa/Levodopa (Sinemet 25/100 Mg) 1 tab PO BID [facility] Stop: 03/08/19 08:59 Last Admin: 02/07/19 09:36 Dose: 1 tab Documented by: Ferrous Sulfate (Feosol) 325 mg PO DAILY [facility] Stop: 03/08/19 08:59 Last Admin: 02/07/19 09:32 Dose: 325 mg Documented by: Fluoxetine HCl (Prozac) 40 mg PO DAILY [facility] Stop: 03/08/19 08:59 Last Admin: 02/07/19 09:34 Dose: 40 mg Documented by: Furosemide (Lasix) 80 mg PO DAILY [facility] Stop: 03/08/19 08:59 Last Admin: 02/07/19 09:32 Dose: 80 mg Documented by: Guaifenesin (Mucinex) 600 mg PO Q12H [facility] Stop: 03/08/19 08:59 Last Admin: 02/07/19 09:33 Dose: 600 mg Documented by: Heparin Sodium/Dextrose (Heparin Sodium/Dextrose) 25,000 units in 500 mls @ 26 mls/hr IV .[id number] [facility]; Protocol Stop: 03/08/19 00:59 Last Titration: 02/07/19 15:03 Dose: 1,300 units/hr, 26 mls/hr Documented by: Sodium Chloride (Nss 1000ml) 1,000 mls @ 125 mls/hr IV .Q8H [facility] Stop: 03/08/19 04:50 Last Admin: 02/07/19 12:09 Dose: 125 mls/hr Documented by: Insulin Aspart (Novolog Flexpen) 0 units SC ACHS [facility] Stop: 03/08/19 07:29 Last Admin: 02/07/19 13:10 Dose: 4 units Documented by: Isosorbide Mononitrate (Imdur Extended Rel) 30 mg PO DAILY [facility] Stop: 03/08/19 08:59 Last Admin: 02/07/19 09:32 Dose: 30 mg Documented by: Magnesium Hydroxide (Milk Of Magnesia) 30 ml PO DAILY PRN PRN Reason: Constipation Stop: 03/08/19 04:50 Metoprolol Succinate (Toprol Xl) 12.5 mg PO BID [facility] Stop: 03/08/19 08:59 Last Admin: 02/07/19 09:38 Dose: 12.5 mg Documented by: Miscellaneous (Order Awaiting Action) 1 ea N/A QS [facility] Stop: 03/08/19 07:59 Last Admin: 02/07/19 15:53 Dose: Not Given Documented by: Miscellaneous (Order Awaiting Action) 1 ea N/A QS [facility] Stop: 03/08/19 07:59 Last Admin: 02/07/19 15:53 Dose: Not Given Documented by: Morphine Sulfate (Morphine Sulfate) 2 mg IV Q3H PRN PRN Reason: Pain Stop: 02/20/19 04:50 Last Admin: 02/06/19 09:10 Dose: 2 mg Documented by: Nystatin (Mycostatin) 1 appln EXT TID [facility] Stop: 03/08/19 08:59 Last Admin: 02/07/19 13:17 Dose: 1 appln Documented by: Pregabalin (Lyrica) 300 mg PO BID [facility] Stop: 03/08/19 08:59 Last Admin: 02/07/19 09:33 Dose: 300 mg Documented by: Ranitidine HCl (Zantac) 150 mg PO HS [facility] Stop: 03/08/19 20:59 Last Admin: 02/06/19 20:35 Dose: 150 mg Documented by: Ropinirole HCl (Requip) 2 mg PO DAILY [facility] Stop: 03/08/19 08:59 Last Admin: 02/07/19 09:35 Dose: 2 mg Documented by: Simvastatin (Zocor) 20 mg PO HS [facility] Stop: 03/08/19 20:59 Last Admin: 02/06/19 20:35 Dose: 20 mg Documented by: Tamsulosin HCl (Flomax) 0.4 mg PO DAILY [facility] Stop: 03/08/19 08:59 Last Admin: 02/07/19 11:08 Dose: 0.4 mg Documented by: PG Care Time/CCT Total # of Minutes Spent Total Time Spent with Patient: Total time spent is greater than 50% in coordination of care (as documented) at patient's floor/unit and/or counseling patient: (1) Deep vein thrombosis (DVT) of left lower extremity Affected thrombotic vein of extremity: femoral Chronicity: acute Qualified Code(s): I82.412 - Acute embolism and thrombosis of left femoral vein
--- NOTE | 2019-02-07 21:36 | Ultrasound Report ---
US venous doppler LE BI HISTORY: Pain. Edema. rule out acute dvt, repeat COMPARISON STUDY: 01/23/2017. 02/24/2016. FINDINGS: Findings consistent with thrombus within the right femoral vein and popliteal vein. Thrombu s also identified in the left superficial femoral vein.. These findings are considered chronic. No evidence for new or interval findings. IMPRESSION: Findings consistent with chronic deep venous thrombosis of the right as well as left leg. No evidence for a superimposed acute process. The above report was generated using voice recognition software. It may contain grammatical, syntax or spelling errors. Electronically signed by: Kannan Bhakta M.D. 02/07/2019 9:35 PM
[2019-02-07] MEDS: MoRPHine SULFATE 2 MG/ML CARP IV PRN (21:43)
[2019-02-07] MEDS: SIMVASTATIN 20 MG TAB PO SCH (21:49)
[2019-02-08] MEDS: SODIUM CHLORIDE 0.9% 1000ML 1,000 ML IV SCH ×2 (03:41→11:17)
[2019-02-08] MEDS: ACETAMINOPHEN 325 MG TAB PO SCH ×2 (05:16→12:49)
[2019-02-08] MEDS: AVODART~ORDER AWAITING ACTION SCH (07:50)
[2019-02-08 08:16] LABS: Basophils # (auto) 0.01 K/uL (0-0.2); Basophils % (auto) 0.2 %; Eosinophils # (auto) 0.24 K/uL (0-0.5); Eosinophils % (auto) 5.8 %; Hematocrit (blood only) 36.2 % (42-52); Hemoglobin 11.9 g/dL (14.0-18.0); Immature Granulocytes # (auto) 0.01 K/uL (0.00-0.02); Immature Granulocytes % (auto) 0.2 %; Lymphocytes # (auto) 0.97 K/uL (1.2-3.4); Lymphocytes % (auto) 23.4 %; Mean Corpuscular Hemoglobin 29.5 pg (25-34); Mean Corpuscular Hgb Conc 32.9 g/dL (32-36); Mean Corpuscular Volume 89.8 fL (80-100); Mean Platelet Volume 9.6 fL (7.4-10.4); Monocytes # (auto) 0.34 K/uL (0.11-0.59); Monocytes % (auto) 8.2 %; Neutrophils # (auto) 2.58 K/uL (1.4-6.5); Neutrophils % (auto) 62.2 %; Platelet Count 129 K/uL (130-400); RDW Coefficient of Variation 14.5 % (11.5-14.5); RDW Standard Deviation 47.5 fL (36.4-46.3); Red Blood Count 4.03 M/uL (4.7-6.1); White Blood Count 4.15 K/uL (4.8-10.8)
[2019-02-08 08:38] LABS: Partial Thromboplastin Ratio 2.1
[2019-02-08] MEDS: HEPARIN SODIUM/DEXTROSE 25,000 UNITS/500 ML BAG IV SCH (08:44)
[2019-02-08 08:51] LABS: BUN Creatinine Ratio 12.1 (10-20); Calcium 8.4 mg/dl (8.5-10.1); Est GFR (Non-African American) 91.4; Potassium 3.6 mmol/L (3.5-5.1)
[2019-02-08 08:58] LABS: Partial Thromboplastin Time 57.3 Seconds (21.0-31.0)
[2019-02-08] MEDS: INSULIN ASPART 100 UNITS/ML 3 ML PEN SC SCH ×2 (09:42→12:51)
[2019-02-08] MEDS: TAMSULOSIN HCL 0.4 MG CAP PO SCH (09:50)
[2019-02-08] MEDS: FERROUS SULFATE 325 MG TAB PO SCH (09:50)
[2019-02-08] MEDS: ISOSORBIDE MONO EXTENDED REL 30 MG TABCR PO SCH (09:50)
[2019-02-08] MEDS: PREGABALIN 150 MG CAP PO SCH (09:51)
[2019-02-08] MEDS: guaiFENesin 600 MG TABCR PO SCH (09:51)
[2019-02-08] MEDS: AMLODIPINE BESYLATE 5 MG TAB PO SCH (09:51)
[2019-02-08] MEDS: FUROSEMIDE 80 MG TAB PO SCH (09:51)
[2019-02-08] MEDS: METOPROLOL SUCC 25MG EXT REL TAB PO SCH (09:52)
[2019-02-08] MEDS: FLUOXETINE HCL 20 MG CAP PO SCH (09:52)
[2019-02-08] MEDS: CARBIDOPA/LEVODOPA 25/100MG TAB PO SCH (09:52)
[2019-02-08] MEDS: ROPINIROLE HCL 1 MG TABLET PO SCH (09:52)
[2019-02-08] MEDS: ASCORBIC ACID 500 MG TAB PO SCH (09:52)
[2019-02-08] MEDS: ALLOPURINOL 100 MG TAB PO SCH (09:53)
[2019-02-08] MEDS: NYSTATIN POWDER 15GM BTL EXT SCH ×2 (10:12→13:52)
--- NOTE | 2019-02-08 12:36 | Discharge Summary ---
Date of Service February 08, 2019 Admission HPI Per Admitting Provider 63 y/o M Hx Hypercoagulability disorder with multiple previous DVTs/PEs, HTN, HLD, advanced Parkinson's, gout, chronic diastolic CHF, DM II, and h/o TIA. Presents from [facility] with L above the knee pain x 4 days. Found to have DVT - L common femoral vein / profunda femoris vein on 02/03/19 doppler. Pt also reports headache. Otherwise denies any dizziness, cp, sob, abdominal pain, nausea, vomiting, diarrhea, constipation, dysuria, hematuria, hematochezia, melena. Of note: pt reports chronic L thigh numbness s/p injury to nerve during back traction for herniated disc many years ago. Admission Exam Per Admitting Provider General: In NAD Neuro: A&O x 4 Pulm: CTAB equal breath sounds bilaterally CV: RRR, no m/r/g Abdomen:+BS, mildly TTP in lower abdominal quadrants (also precent on previous admission and pt reports chronic), obese abdomen LE: trace LE edema, bilateral calf TTP, L thigh numb compared to R thigh (reports chronic s/p back traction injury for herniated disc, strength 5/5 bilateral LEs Principal Diagnosis DVT of left lower extremity Discharge Exam General: Alert, oriented. No acute distress HEENT: NC/AT, PERRLA, EOMI, oropharynx moist. Chest: Nontender to palpation. CV: RRR, Normal s1, s2. No murmurs appreciated Resp: Breath sounds clear bilaterally, no increased effort of breathing. Abdomen:Soft, tender on right and lower abd. some guarding. Extremities: bilateral lower extremity pain and swelling, more painful in left lower extremity. Discharge Data Allergies Allergy/AdvReac Type Severity Reaction Status Date / Time Penicillins Allergy Severe Verified 02/06/19 02:09 Bactrim Allergy Unknown . Verified 04/06/18 09:03 Cephalosporins Allergy Unknown Verified 02/06/19 02:10 sulfamethoxazole Allergy Unknown . Verified 02/06/19 02:10 trimethoprim Allergy Unknown . Verified 02/06/19 02:09 lisinopril AdvReac Intermediate Cough Verified 02/06/19 02:09 Consultations 02/06/19 00:54 ED Decision to Admit Stat 02/07/19 09:16 Consult Physician Routine Ordered Studies 02/06/19 04:51 US duplex aorta/iliacs Urgent 02/07/19 18:29 US venous doppler LE BI Routine Hospital Course (1) Deep vein thrombosis (DVT) of left lower extremity: Mr. 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 He was admitted for pain treatment and further management. Concern of Acute DVT with h/o recurrent DVT/PE -outside records from [facility] showing acute DVT in L common femoral vein / profunda femoris vein on 02/03/19 doppler -started on heparin drip. -due to concern of eliquis failure - Dr. Arguello consulted. * -Repeat imaging at [facility] suggests chronic DVT and not acute after comparison to imaging from 2016 and 2017 :"IMPRESSION: Findings consistent with chronic deep venous thrombosis of the right as well as left leg. No evidence for a superimposed acute process." * -false positive antithrombin III, no concern of APA syndrome. Unclear of the etiology of extensive recurrent thromboembolism-per chart review and consultation with Dr. Ca Arguello, anticoagulation specialist. * -In that case since clot not acute it means that pt did NOT experience treatment failure of Eliquis and can continue home dose. -continued Eliquis upon discharge -question of occluded IVC filter- per vascular surgery - no intervention. Chronic diastolic CHF -Echo 03/2018- EF 60-65% with mild LVH -continue home meds Hx of TIA -continue home statin -continue home Eliquis Type 2 DM -ISS Gout -continue home allopurinol Parkinson's -continue home meds GERD -continue home meds BPH -continue home meds Mood disorder -continue home meds Total Time Total Time Spent Total Time Spent (In Minutes): 60 Discharge Plan Discharge Items Patient Disposition: Transfer Longterm Fac Reason For Visit: DVT LEFT LEG Discharge Diagnosis: Chronic DVT of left leg Discharge Goals: Decrease discomfort and Improve function Activity: Per 'Additional Instructions' section Non-emergency contact: Primary Care Provider Call non-emergency contact if: your symptoms worsen and you have a fever Follow-up/Referrals: Doris Dixon [Primary Care Provider] - Diet: Carb Consistent or DM2 and Heart Healthy Addtl Provider Instructions: Mr. 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 He was admitted for pain treatment and further management. SUMMARY DISCHARGE INSTRUCTIONS -Continue on Eliquis 5mg; given that repeat doppler suggests chronic and not acute clot. No evidence of treatment failure with Eliquis. -Continue scheduled tylenol for pain. Acute DVT with h/o recurrent DVT/PE -outside records from [facility] showing acute DVT in L common femoral vein / profunda femoris vein on 02/03/19 doppler -false positive antithrombin III, no concern of APA syndrome. Unclear of the etiology of extensive recurrent thromboembolism. -Repeat imaging at [facility] suggests chronic DVT and not acute after comparison to imaging from 2016 and 2017 :"IMPRESSION: Findings consistent with chronic deep venous thrombosis of the right as well as left leg. No evidence for a superimposed acute process. -In that case, not treatment failure of Eliquis and continue home dose. -was placed on a heparin drip whilst in the hospital due to initial concern for acute DVT; continue Eliquis upon discharge -on scheduled tylenol for pain; morphine available prn if pain still not controlled. Continue scheduled tylenol on discharge. -question of occluded IVC filter- per vascular surgery - no intervention. Hx of CHF -Echo 03/2018- EF 60-65% with mild LVH -continue home meds Hx of TIA -continue home statin -continue home Eliquis Type 2 DM -ISS Gout -continue home allopurinol Parkinson's -continue home meds GERD -continue home meds BPH -continue home meds Mood disorder -continue home meds Prescriptions: Continued guaifenesin 600 mg Tablet Extended Release 12hr 600 mg PO Q12H RF: 0 magnesium hydroxide [Milk of Magnesia] 400 mg/5 mL Suspension 30 ml PO DAILY PRN (Reason: Constipation) RF: 0 morphine 20 mg/5 mL (4 mg/mL) Solution 10 mg PO Q6H PRN (Reason: Pain, Severe) RF: 0 morphine 20 mg/5 mL (4 mg/mL) Solution 5 mg PO Q6H PRN (Reason: Pain, Moderate) RF: 0 Nuplazid 34 mg Capsule 34 mg PO DAILY RF: 0 nystatin 100,000 unit/gram Powder 1 applic TOPICAL TID RF: 0 ropinirole 2 mg Tablet Extended Release 24 Hr 2 mg PO DAILY RF: 0 carbidopa-levodopa [Sinemet] 25-100 mg Tablet 1 tab PO BID RF: 0 morphine 20 mg/5 mL (4 mg/mL) Solution 10 mg PO Q12H Qty: 100 RF: 0 fluoxetine 40 mg Capsule 40 mg PO DAILY RF: 0 isosorbide mononitrate 30 mg Tablet Extended Release 24 Hr 30 mg PO DAILY RF: 0 allopurinol 100 mg Tablet 100 mg PO QAM RF: 0 ascorbic acid (vitamin C) 500 mg Tablet 500 mg PO DAILY RF: 0 tamsulosin 0.4 mg Capsule 0.4 mg PO DAILY RF: 0 furosemide 80 mg Tablet 80 mg PO DAILY RF: 0 amlodipine 10 mg Tablet 10 mg PO DAILY RF: 0 bisacodyl [Dulcolax (bisacodyl)] 10 mg Suppository [address] DAILY PRN (Reason: Constipation) RF: 0 simvastatin 20 mg Tablet 20 mg PO HS RF: 0 ferrous sulfate 325 mg (65 mg iron) Tablet 325 mg PO DAILY RF: 0 ranitidine HCl 150 mg Tablet 150 mg PO HS RF: 0 metoprolol succinate 25 mg Tablet Extended Release 24 Hr 12.5 mg PO BID RF: 0 insulin lispro [Humalog U-100 Insulin] 100 unit/mL Solution 1 sliding scale dose SUBCUT UD PRN (Reason: Hyperglycemia) RF: 0 pregabalin [Lyrica] 300 mg Capsule 300 mg PO BID RF: 0 acetaminophen [Tylenol] 325 mg Capsule 650 mg PO Q6H MDD 3G PRN (Reason: Fever Or Pain) RF: 0 dutasteride-tamsulosin 0.5-0.4 mg Capsule, Er Multiphase 24 Hr 1 cap PO HS RF: 0 apixaban 5 mg tablet 5 mg PO BID Qty: 60 RF: 0 Stand-Alone Forms: [facility] Discharge Orders: Discharge Order (Routine); Ordered 02/08/19 Ordered By: Aguilar Dotson Skilled Items Patient informed of condition?: Yes DNR: Yes Discharge Level of Care: Skilled Communicable Disease: No Discharge Prognosis: Stable Admission Data Admit Date/Time: 02/07/19 16:35 Attending Provider: Radha Guerrero Admit Provider: Joel Bowers Primary Care Provider: Doris Dixon Other Providers: Aramis Lynch ; Joel Bowers ; Ca Arguello Service: Medical Other Interventions: Discharge Summary Assessment (RN) Last Done: 02/08/19 13:38 DC Date/Time DO NOT enter until pt leaves facility: 02/08/19 15:40 Supervising Physician Co-Signing Physician Notes Resident Physician Supervision Note: I independently interviewed and examined the patient and verified the hansen history and physical, reviewed labs and image studies, discussed the case with the resident Dr. Lao and agree with the findings and care plan. Time spent in discharge 35 min
[2019-02-08] MEDS: MoRPHine SULFATE 2 MG/ML CARP IV PRN (13:49)
[2019-02-08] MEDS ORDERED: APIXABAN 5 MG TABLET PO STA (14:47)
== END 2019-02-08 15:40 | DRG 300 ==
LOC: 2E 21:39 → ED 21:39 → SUATTDRO 02-06 03:29 → 2E 02-06 04:11 → 3W 02-06 17:28